=== PATIENT | male | born 1940 | race Caucasian/White ===

== ENCOUNTER 2017-12-02 11:45 | Outpatient (RCR) | payer MEDICARE, SELFPAY ==
[2017-11-25 11:23] VITALS: BP 139/75; PULSE 53; RESP 18; TEMP 36.2; BMI 41.5
--- NOTE | 2017-11-25 14:05 | RAD_ITS ---
STUDY: X-RAY RIGHT FOOT, 3RD TOE REASON FOR EXAM: Male, 77 years old. Blister 3rd toe TECHNIQUE: 3 view(s) of the toe were obtained. COMPARISON: None. FINDINGS: Osteopenia. Mild DJD of the interphalangeal joints of each digit. Moderately severe DJD of the 1st digit metatarsophalangeal joint may reflect the presence of hallux rigidus.. There is soft tissue swelling of the 3rd digit. There is no deep soft tissue gas or radiodense foreign body. There is relative osteopenia of the distal phalanx of the 3rd digit compared to the other bones of the toes and this suggests bone resorption due to osteomyelitis. RAD/Toe(s) Min 2 Views IMPRESSION: Soft tissue swelling 3rd digit with osteomyelitis of the distal phalanx. Electronically Signed: Chino Tomlinson, at 16:22 EDT Tel , Service support ,
--- NOTE | 2017-11-25 14:06 | PCM.WC.HP ---
(1) Diabetic foot ulcer Status: Chronic Current Visit: Yes Qualifiers: Diabetic foot ulcer location: toe Diabetes mellitus type: type 2 Laterality: right Non-pressure ulcer stage: with necrosis of muscle Qualified Code(s): E11.621 - Type 2 diabetes mellitus with foot ulcer; L97.513 - Non-pressure chronic ulcer of other part of right foot with necrosis of muscle Code(s): E11.621 - Type 2 diabetes mellitus with foot ulcer; L97.509 - Non-pressure chronic ulcer of other part of unspecified foot with unspecified severity (2) Diabetes mellitus Status: Chronic Current Visit: Yes Qualifiers: Diabetes mellitus type: type 2 Code(s): E11.9 - Type 2 diabetes mellitus without complications (3) Peripheral neuropathy Status: Chronic Current Visit: Yes Code(s): G62.9 - Polyneuropathy, unspecified (4) Obesity Status: Chronic Current Visit: Yes Qualifiers: Body mass index: BMI 40.0-44.9 Code(s): E66.9 - Obesity, unspecified (5) History of pulmonary embolism Status: Chronic Current Visit: No Code(s): Z86.711 - Personal history of pulmonary embolism (6) Hypertension Status: Chronic Current Visit: No Code(s): I10 - Essential (primary) hypertension (7) Hyperlipidemia Status: Chronic Current Visit: No Code(s): E78.5 - Hyperlipidemia, unspecified (8) Arthritis Status: Chronic Current Visit: No Code(s): M19.90 - Unspecified osteoarthritis, unspecified site (9) History of VT (myocardial infarction) Status: Chronic Current Visit: No Code(s): I25.2 - Old myocardial infarction (10) History of CVA (cerebrovascular accident) Status: Chronic Current Visit: No Code(s): Z86.73 - Personal history of transient ischemic attack (TIA), and cerebral infarction without residual deficits (11) Coronary artery disease involving [place] coronary artery of [place] heart Status: Chronic Current Visit: No Code(s): I25.10 - Atherosclerotic heart disease of [place] coronary artery without angina pectoris (12) PAD (peripheral artery disease) Status: Chronic Current Visit: Yes Code(s): I73.9 - Peripheral vascular disease, unspecified (13) Leg swelling Status: Chronic Current Visit: Yes Code(s): M79.89 - Other specified soft tissue disorders (14) Edema of leg Status: Chronic Current Visit: Yes Code(s): R60.0 - Localized edema (15) CKD (chronic kidney disease) stage 3, GFR 30-59 ml/min Status: Chronic Current Visit: No Code(s): N18.3 - Chronic kidney disease, stage 3 (moderate) History of Present Illness Date of Service: 11/25/17 Chief Complaint: Chronic diabetic foot ulceration of the right third toe, dorsum, Bowie grade 2 History of Wound: This is a 77-year-old obese, diabetic male who presents with a chronic ulceration on the dorsum of his right third toe. This has been present for approximately 6 months. The patient is not sure as to its etiology. The patient is known to be diabetic. He is also obese. He has multiple medical problems, documented here and elsewhere. He ambulates with a cane, and sits for long periods each day. He experiences swelling in his lower extremities bilaterally. He is currently on doxycycline orally, as prescribed by his primary care physician. He wears diabetic shoes, as fitted and dispensed by [employer] Past Medical History Past Medical History: Chronic Problems Diabetic foot ulcer (Chronic) Diabetes mellitus (Chronic) Peripheral neuropathy (Chronic) Obesity (Chronic) History of pulmonary embolism (Chronic) Hypertension (Chronic) Hyperlipidemia (Chronic) Arthritis (Chronic) History of VT (myocardial infarction) (Chronic) History of CVA (cerebrovascular accident) (Chronic) Leg swelling (Chronic) Edema of leg (Chronic) CKD (chronic kidney disease) stage 3, GFR 30-59 ml/min (Chronic) Exogenous obesity (Chronic) GERD (gastroesophageal reflux disease) (Chronic) Coronary artery disease involving [place] coronary artery of [place] heart (Chronic) Chronic kidney disease (CKD) (Chronic) Gout (Chronic) Lumbosacral stenosis (Chronic) Degeneration of lumbosacral intervertebral disc (Chronic) Lumbosacral radiculopathy (Chronic) PAD (peripheral artery disease) (Chronic) Diabetes mellitus type II, controlled (Chronic) Past Medical History: Patient has a history of diabetes mellitus, peripheral neuropathy, pulmonary embolism, peripheral arterial occlusive disease, hypertension, chronic kidney disease (stage III), coronary artery disease, hyperlipidemia, myocardial infarction, arthritis, and lower extremity swelling and edema. Surgical History: angioplasty, cholecystectomy, coronary bypass surgery, total knee arthroplasty, tonsillectomy, - - Vein stripping, rectal fistula repair, ORIF fractured leg, bilateral cataract extraction Allergies/Adverse Reactions: Allergies allopurinol Adverse Reaction (Verified 11/25/17 11:37) Other exenatide [From Byetta] Adverse Reaction (Verified 11/25/17 11:37) Other insulin aspart [From Novolog] Adverse Reaction (Verified 11/25/17 11:37) Other insulin glargine, human recombin. a [From Lantus] Adverse Reaction (Verified 11/25/17 11:37) Other morphine Adverse Reaction (Verified 11/25/17 11:37) Other DOES NOT HELP PAIN, MAKES ME FEEL OUT OF IT [id number] Reductase Inhibitor Adverse Reaction (Verified 11/25/17 11:37) Other Home Medications: Ambulatory Orders Medication Instructions Recorded Furosemide [Lasix] 80 mg PO DAILY 05/20/14 Insulin NPH/Reg 70/30 25 units SC BID 05/20/14 Metoprolol Tartrate [Lopressor 25 mg PO BID 05/20/14 (beta vania)] Timolol 0.5% [Timoptic] 1 drop EACH EYE BID 05/20/14 Tramadol HCl [Ultram ER] 50 mg PO 4X/DAY 05/20/14 Glipizide [Glucotrol Xl] 10 mg PO BID 08/02/15 Chromium Picolinate 500 mcg PO DAILY 01/15/17 Clopidogrel Bisulfate [Plavix] 75 mg PO DAILY 01/15/17 Pantoprazole Sodium [Protonix] 20 mg PO DAILY 01/15/17 Doxycycline 100 mg PO BID 11/25/17 Gabapentin [Neurontin] 300 mg PO TIDCM 11/25/17 Probenecid 500 mg PO BID 11/25/17 Sulindac [Clinoril] 200 mg PO BID 11/25/17 - Family History Paternal - - The patient's father at age of 69 with a history of coronary artery disease and diabetes mellitus. The patient's mother lived to be 95 years of age, and passed of old age. 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 Lives: Spouse/ Significant Other Smoking Status: Never smoker Tobacco Use: Non-smoker Alcohol: None Drugs: None Review of Systems Constitutional: Denies: Chills, Fever, Weight Change Eyes: Denies: Pain, Vision Change HEENT: Denies: Difficulty Hearing, Difficulty Swallowing, Sinus Congestion Cardiovascular: Denies: Chest Pain, Palpitations Respiratory: Denies: Cough, Shortness of Breath Gastrointestinal: Denies: Diarrhea, Nausea, Vomiting Genitourinary: Denies: Dysuria, Hematuria Endocrine: Denies: Heat/ Cold Intolerance, Polydipsia, Polyuria Hematologic/ Lymphatic: Denies: Easy Bruising, Easy Bleeding - Physical Exam Vital Signs Temp Pulse Resp BP 97.1 F L 53 L 18 139/75 H 11/25/17 11:23 11/25/17 11:23 11/25/17 11:23 11/25/17 11:23 General: Alert, Oriented x3, Cooperative, No apparent distress, Well developed, Well nourished HEENT: Atraumatic, PERRLA, EOMI, Normocephalic Oral: Moist Mucosa Neck: Supple, No JVD, Negative Carotid Bruits, Negative Hepatojugular Reflux, No Nodes, No Nuchal Rigidity, Trachea Midline Lungs: Clear to auscultation, Normal air movement, No rhonchi, No wheeze, No rales Cardiovascular: Regular rate, Regular Rhythm, Normal S1, Normal S2, No murmurs, No Ectopic Activity Abdomen: Soft, Non Tender, Non-Distended, Obese Extremities: No clubbing, No cyanosis, No Calf Tenderness, Edema, - - Mild bilateral lower extremity swelling and edema is noted. An ulceration is noted on the dorsum of the right third toe. Dimensions are documented elsewhere. There is moderate bioburden, and evidence of frankly nonviable and necrotic tissue. The ulceration appears to extend down to underlying bone. There is no evidence of infection or cellulitis. Skin: No rashes Wound Measurements and Assessment WC - Nurse 1 - General Ulcer Measurement Start: 11/25/17 09:46 Freq: Status: Active Protocol: Activity Type Activity Date Activity User E-Sign Co-Sign Detail Recorded Client Recorded Date Recorded By Document 11/25/17 11:23 DV [id number] 11/25/17 11:35 DV 11/25/17 11:23 Wound Center Nurse 1 [Ulcer Assessment] #2 RIGHT 3RD TOE- DORSAL ASPECT -Combined with other wound No -Current Size (cm) - Length 1.0 -Current Size (cm) - Width 1.0 -Current Size (cm) - Depth 0.2 -Total Square Cm 1.00 -Photo Taken Yes -Epithelialization None Present -Tunneling No -Undermining/Tunneling No -Circular Undermining No -Classification - Thickness Full Thickness with Exposed Support Structure -Classification - Bowie Grading ( Grade 2 Diabetic Ulcer) -Exudate Amt Small (1-33%) -Exudate Type Serous -Wound Margin Flat & Intact -Granulation Amt None Present (0 %) -Granulation Quality N/A -Slough/Fibrin Yes -Necrosis Amt Large (67-100%) -Necrotic Tissue Type Adherent Slough -Structure Exposed None/Limited to Skin Breakdown -Texture ([place]-wound Skin Appearance) Assessed Localized Edema Scarring -Moisture ([place]-wound Skin Appearance Assessed ) Maceration Weeping -Color ([place]-wound Skin Appearance) Assessed Erythema -Temperature ([place]-wound Skin No Abnormality Appearance) (Pt Warm) -Tenderness on Palpation ([place]-wound No Skin Appearance) -Ulcer Cleansing Rinsed/ Irrigated with Saline -Foul Odor after Cleansing No -Anesthetic Used 4% Lidocaine Solution [Edema Assessment] -Lower Limb Edema Present Yes -Right Calf (cm) 43.5 -Right Ankle (cm) 29.2 -Left Calf (cm) 42.0 -Left Ankle (cm) 27.4 WC - Nurse 2 - General Ulcer CM Notes Start: 11/25/17 09:46 Freq: Status: Active Protocol: Activity Type Activity Date Activity User E-Sign Co-Sign Detail Recorded Client Recorded Date Recorded By Document 11/25/17 12:55 [id number] 11/25/17 13:13 11/25/17 12:55 Wound Center Nurse 2 [Procedure/Treatment] #2 RIGHT 3RD TOE- DORSAL ASPECT -Time 12:55 -Correct Patient Yes -Correct Side, Site, Position Yes -Correct Procedure Yes -Procedure Performed Yes -Type of Procedure Debridement -Clinical Debridement Subcutaneous -Post Debridement Size (cm) - Length 1.0 -Post Debridement Size (cm) - Width 1.1 -Post Debridement Size (cm) - Depth 0.2 -Total Square Cm 1.10 -Wound/Ulcer Outcome Not Healed -Ulcer Cleansing Rinsed/ Irrigated with Saline -Foul Odor after Cleansing No -Bioengineered Tissue No -Topical Lidocaine (%) 4 -Lidocaine (ml) 5 -Bleeding Controlled with NA -Treatment Response Procedure Tolerated Well [See Physician Procedure note for Specifics] Pain Scale: 0-10 Numeric [Pain] -Is Patient Pain Free? Yes Neurological: Cranial nerves II-XII grossly intact, Neuro grossly intact Psych/Mental Status: Normal Affect, Appropriate, Alert and oriented to time, place, person, mood and affect Debridement Note Post-Debridement Measurements/Treatment WC - Nurse 2 - General Ulcer CM Notes Start: 11/25/17 09:46 Freq: Status: Active Protocol: Activity Type Activity Date Activity User E-Sign Co-Sign Detail Recorded Client Recorded Date Recorded By Document 11/25/17 12:55 [id number] 11/25/17 13:13 11/25/17 12:55 Wound Center Nurse 2 #2 RIGHT 3RD TOE- DORSAL ASPECT -Time 12:55 -Correct Patient Yes -Correct Side, Site, Position Yes -Correct Procedure Yes -Procedure Performed Yes -Type of Procedure Debridement -Clinical Debridement Subcutaneous -Post Debridement Size (cm) - Length 1.0 -Post Debridement Size (cm) - Width 1.1 -Post Debridement Size (cm) - Depth 0.2 -Total Square Cm 1.10 -Wound/Ulcer Outcome Not Healed -Ulcer Cleansing Rinsed/ Irrigated with Saline -Foul Odor after Cleansing No -Bioengineered Tissue No -Topical Lidocaine (%) 4 -Lidocaine (ml) 5 -Bleeding Controlled with NA -Treatment Response Procedure Tolerated Well Pain Scale: 0-10 Numeric Is Patient Pain Free? Yes Laterality: Right - Third toe, dorsum Type of Debridement: Excisional debridement Anesthesia Used: 4% Lidocaine Solution Depth: Down to and including healthy tissue, in the subcutaneous layer Percentage of wound debrided: 100 Instrument Used: 5mm curette Severity: Fat Layer Exposed Amount of bleeding with debridement: Mild Bleeding Controlled with: Compression and gauze Patient tolerated procedure well Assessment/Plan Active Problems Diabetic foot ulcer (Chronic) Diabetes mellitus (Chronic) Peripheral neuropathy (Chronic) Obesity (Chronic) Leg swelling (Chronic) Edema of leg (Chronic) PAD (peripheral artery disease) (Chronic) Assessment: This is a 77-year-old obese diabetic male with an ulceration on the dorsum of the right third toe. The ulceration appears to extend down to bone. Duration represents a Bowie grade 2 ulceration, and possibly a grade 3 ulceration if infection or osteomyelitis can be confirmed. The etiology of the ulceration is not definitively known, but is suspicious for pressure phenomenon, likely due to pressure from the patient's foot wear. While his shoes may be appropriately fitted, he experiences swelling late each day, and the swelling in his lower extremities and feet may have led to pressure phenomenon within his existing shoes. He is also known to have multiple other medical problems, listed above. Plan: Offloading measures are to be implemented. A lengthy discussion has been undertaken with the patient and his as to the means by which this is to be accomplished. She is to elevate his lower extremities as much as possible, to avoid swelling and edema. He is to be sure that his shoes fit properly, even at days then, when his feet may be swollen. We are to fit the patient with a surgical shoe. It is likely that we will involve podiatry, given the location of the patient's wound. Diagnostic studies will be obtained, including laboratory studies such as a CBC, comprehensive metabolic profile, serum prealbumin, and hemoglobin A1c. The patient has been advised to optimize his nutrition and glycemic control. An x-ray of the right foot will be obtained, with attention to the right third toe, in an attempt to discern the possible presence of osteomyelitis. A noninvasive lower extremity arterial study will also be obtained to assess lower extremity arterial status. We are to use collagenase Santyl topically on a daily basis. Patient will return in 1 week for reassessment. The patient is not a smoker. Influenza vaccine was not administered today. Patient weighs 250 pounds. He stands 5 feet 5 inches tall. BMI is 41.5. This places the patient in a class III category. Weight loss has been recommended, and collaboration with the patient's primary care physician has been recommended.
--- NOTE | 2017-11-25 14:16 | HP.PCM_ITS ---
(1) Diabetic foot ulcer Status: Chronic Current Visit: Yes Qualifiers: Diabetic foot ulcer location: toe Diabetes mellitus type: type 2 Laterality: right Non-pressure ulcer stage: with necrosis of muscle Qualified Code(s): E11.621 - Type 2 diabetes mellitus with foot ulcer; L97.513 - Non-pressure chronic ulcer of other part of right foot with necrosis of muscle Code(s): E11.621 - Type 2 diabetes mellitus with foot ulcer; L97.509 - Non- pressure chronic ulcer of other part of unspecified foot with unspecified severity (2) Diabetes mellitus Status: Chronic Current Visit: Yes Qualifiers: Diabetes mellitus type: type 2 Code(s): E11.9 - Type 2 diabetes mellitus without complications (3) Peripheral neuropathy Status: Chronic Current Visit: Yes Code(s): G62.9 - Polyneuropathy, unspecified (4) Obesity Status: Chronic Current Visit: Yes Qualifiers: Body mass index: BMI 40.0-44.9 Code(s): E66.9 - Obesity, unspecified (5) History of pulmonary embolism Status: Chronic Current Visit: No Code(s): Z86.711 - Personal history of pulmonary embolism (6) Hypertension Status: Chronic Current Visit: No Code(s): I10 - Essential (primary) hypertension (7) Hyperlipidemia Status: Chronic Current Visit: No Code(s): E78.5 - Hyperlipidemia, unspecified (8) Arthritis Status: Chronic Current Visit: No Code(s): M19.90 - Unspecified osteoarthritis, unspecified site (9) History of FL (myocardial infarction) Status: Chronic Current Visit: No Code(s): I25.2 - Old myocardial infarction (10) History of CVA (cerebrovascular accident) Status: Chronic Current Visit: No Code(s): Z86.73 - Personal history of transient ischemic attack (TIA), and cerebral infarction without residual deficits (11) Coronary artery disease involving iroquois coronary artery of iroquois heart Status: Chronic Current Visit: No Code(s): I25.10 - Atherosclerotic heart disease of iroquois coronary artery without angina pectoris (12) PAD (peripheral artery disease) Status: Chronic Current Visit: Yes Code(s): I73.9 - Peripheral vascular disease, unspecified (13) Leg swelling Status: Chronic Current Visit: Yes Code(s): M79.89 - Other specified soft tissue disorders (14) Edema of leg Status: Chronic Current Visit: Yes Code(s): R60.0 - Localized edema (15) CKD (chronic kidney disease) stage 3, GFR 30-59 ml/min Status: Chronic Current Visit: No Code(s): N18.3 - Chronic kidney disease, stage 3 (moderate) History of Present Illness Date of Service: 11/25/17 Chief Complaint: Chronic diabetic foot ulceration of the right third toe, dorsum , Bowie grade 2 History of Wound: This is a 77-year-old obese, diabetic male who presents with a chronic ulceration on the dorsum of his right third toe. This has been present for approximately 6 months. The patient is not sure as to its etiology. The patient is known to be diabetic. He is also obese. He has multiple medical problems, documented here and elsewhere. He ambulates with a cane, and sits for long periods each day. He experiences swelling in his lower extremities bilaterally. He is currently on doxycycline orally, as prescribed by his primary care physician. He wears diabetic shoes, as fitted and dispensed by [facility]. Past Medical History Past Medical History: Chronic Problems Diabetic foot ulcer (Chronic) Diabetes mellitus (Chronic) Peripheral neuropathy (Chronic) Obesity (Chronic) History of pulmonary embolism (Chronic) Hypertension (Chronic) Hyperlipidemia (Chronic) Arthritis (Chronic) History of FL (myocardial infarction) (Chronic) History of CVA (cerebrovascular accident) (Chronic) Leg swelling (Chronic) Edema of leg (Chronic) CKD (chronic kidney disease) stage 3, GFR 30-59 ml/min (Chronic) Exogenous obesity (Chronic) GERD (gastroesophageal reflux disease) (Chronic) Coronary artery disease involving iroquois coronary artery of iroquois heart ( Chronic) Chronic kidney disease (CKD) (Chronic) Gout (Chronic) Lumbosacral stenosis (Chronic) Degeneration of lumbosacral intervertebral disc (Chronic) Lumbosacral radiculopathy (Chronic) PAD (peripheral artery disease) (Chronic) Diabetes mellitus type II, controlled (Chronic) Past Medical History: Patient has a history of diabetes mellitus, peripheral neuropathy, pulmonary embolism, peripheral arterial occlusive disease, hypertension, chronic kidney disease (stage III), coronary artery disease, hyperlipidemia, myocardial infarction, arthritis, and lower extremity swelling and edema. Surgical History: angioplasty, cholecystectomy, coronary bypass surgery, total knee arthroplasty, tonsillectomy, - - Vein stripping, rectal fistula repair, ORIF fractured leg, bilateral cataract extraction Allergies/Adverse Reactions: Allergies allopurinol Adverse Reaction (Verified 11/25/17 11:37) Other exenatide [From Byetta] Adverse Reaction (Verified 11/25/17 11:37) Other insulin aspart [From Novolog] Adverse Reaction (Verified 11/25/17 11:37) Other insulin glargine, human recombin. a [From Lantus] Adverse Reaction (Verified 11:37) Other morphine Adverse Reaction (Verified 11/25/17 11:37) Other DOES NOT HELP PAIN, MAKES ME FEEL OUT OF IT Wycvjhg-Gjp-Aux Reductase Inhibitor Adverse Reaction (Verified 11/25/17 11:37) Other Home Medications: Ambulatory Orders Medication Instructions Recorded Furosemide [Lasix] 80 mg PO DAILY 05/20/14 Insulin NPH/Reg 70/30 25 units SC BID 05/20/14 Metoprolol Tartrate [Lopressor 25 mg PO BID 05/20/14 (beta vania)] Timolol 0.5% [Timoptic] 1 drop EACH EYE BID 05/20/14 Tramadol HCl [Ultram ER] 50 mg PO 4X/DAY 05/20/14 Glipizide [Glucotrol Xl] 10 mg PO BID 08/02/15 Chromium Picolinate 500 mcg PO DAILY 01/15/17 Clopidogrel Bisulfate [Plavix] 75 mg PO DAILY 01/15/17 Pantoprazole Sodium [Protonix] 20 mg PO DAILY 01/15/17 Doxycycline 100 mg PO BID 11/25/17 Gabapentin [Neurontin] 300 mg PO TIDCM 11/25/17 Probenecid 500 mg PO BID 11/25/17 Sulindac [Clinoril] 200 mg PO BID 11/25/17 - Family History Paternal - - The patient's father at age of 69 with a history of coronary artery disease and diabetes mellitus. The patient's mother lived to be 95 years of age , and passed of old age. 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 Lives: Spouse/ Significant Other Smoking Status: Never smoker Tobacco Use: Non-smoker Alcohol: None Drugs: None Review of Systems Constitutional: Denies: Chills, Fever, Weight Change Eyes: Denies: Pain, Vision Change HEENT: Denies: Difficulty Hearing, Difficulty Swallowing, Sinus Congestion Cardiovascular: Denies: Chest Pain, Palpitations Respiratory: Denies: Cough, Shortness of Breath Gastrointestinal: Denies: Diarrhea, Nausea, Vomiting Genitourinary: Denies: Dysuria, Hematuria Endocrine: Denies: Heat/ Cold Intolerance, Polydipsia, Polyuria Hematologic/ Lymphatic: Denies: Easy Bruising, Easy Bleeding - Physical Exam Vital Signs Temp Pulse Resp BP 97.1 F L 53 L 18 139/75 H 11/25/17 11:23 11/25/17 11:23 11/25/17 11:23 11/25/17 11:23 General: Alert, Oriented x3, Cooperative, No apparent distress, Well developed, Well nourished HEENT: Atraumatic, PERRLA, EOMI, Normocephalic Oral: Moist Mucosa Neck: Supple, No JVD, Negative Carotid Bruits, Negative Hepatojugular Reflux, No Nodes, No Nuchal Rigidity, Trachea Midline Lungs: Clear to auscultation, Normal air movement, No rhonchi, No wheeze, No rales Cardiovascular: Regular rate, Regular Rhythm, Normal S1, Normal S2, No murmurs, No Ectopic Activity Abdomen: Soft, Non Tender, Non-Distended, Obese Extremities: No clubbing, No cyanosis, No Calf Tenderness, Edema, - - Mild bilateral lower extremity swelling and edema is noted. An ulceration is noted on the dorsum of the right third toe. Dimensions are documented elsewhere. There is moderate bioburden, and evidence of frankly nonviable and necrotic tissue. The ulceration appears to extend down to underlying bone. There is no evidence of infection or cellulitis. Skin: No rashes Wound Measurements and Assessment WC - Nurse 1 - General Ulcer Measurement Start: 11/25/17 09:46 Freq: Status: Active Protocol: Activity Type Activity Date Activity User E-Sign Co-Sign Detail Recorded Client Recorded Date Recorded By Document 11/25/17 11:23 DV [id number] 11/25/17 11:35 DV 11/25/17 11:23 Wound Center Nurse 1 [Ulcer Assessment] #2 RIGHT 3RD TOE- DORSAL ASPECT -Combined with other wound No -Current Size (cm) - Length 1.0 -Current Size (cm) - Width 1.0 -Current Size (cm) - Depth 0.2 -Total Square Cm 1.00 -Photo Taken Yes -Epithelialization None Present -Tunneling No -Undermining/Tunneling No -Circular Undermining No -Classification - Thickness Full Thickness with Exposed Support Structure -Classification - Bowie Grading ( Grade 2 Diabetic Ulcer) -Exudate Amt Small (1-33%) -Exudate Type Serous -Wound Margin Flat & Intact -Granulation Amt None Present (0 %) -Granulation Quality N/A -Slough/Fibrin Yes -Necrosis Amt Large (67-100%) -Necrotic Tissue Type Adherent Slough -Structure Exposed None/Limited to Skin Breakdown -Texture ([place]-wound Skin Appearance) Assessed Localized Edema Scarring -Moisture ([place]-wound Skin Appearance Assessed ) Maceration Weeping -Color ([place]-wound Skin Appearance) Assessed Erythema -Temperature ([place]-wound Skin No Abnormality Appearance) (Pt Warm) -Tenderness on Palpation ([place]-wound No Skin Appearance) -Ulcer Cleansing Rinsed/ Irrigated with Saline -Foul Odor after Cleansing No -Anesthetic Used 4% Lidocaine Solution [Edema Assessment] -Lower Limb Edema Present Yes -Right Calf (cm) 43.5 -Right Ankle (cm) 29.2 -Left Calf (cm) 42.0 -Left Ankle (cm) 27.4 WC - Nurse 2 - General Ulcer CM Notes Start: 11/25/17 09:46 Freq: Status: Active Protocol: Activity Type Activity Date Activity User E-Sign Co-Sign Detail Recorded Client Recorded Date Recorded By Document 11/25/17 12:55 [id number] 11/25/17 13:13 11/25/17 12:55 Wound Center Nurse 2 [Procedure/Treatment] #2 RIGHT 3RD TOE- DORSAL ASPECT -Time 12:55 -Correct Patient Yes -Correct Side, Site, Position Yes -Correct Procedure Yes -Procedure Performed Yes -Type of Procedure Debridement -Clinical Debridement Subcutaneous -Post Debridement Size (cm) - Length 1.0 -Post Debridement Size (cm) - Width 1.1 -Post Debridement Size (cm) - Depth 0.2 -Total Square Cm 1.10 -Wound/Ulcer Outcome Not Healed -Ulcer Cleansing Rinsed/ Irrigated with Saline -Foul Odor after Cleansing No -Bioengineered Tissue No -Topical Lidocaine (%) 4 -Lidocaine (ml) 5 -Bleeding Controlled with NA -Treatment Response Procedure Tolerated Well [See Physician Procedure note for Specifics] Pain Scale: 0-10 Numeric [Pain] -Is Patient Pain Free? Yes Neurological: Cranial nerves II-XII grossly intact, Neuro grossly intact Psych/Mental Status: Normal Affect, Appropriate, Alert and oriented to time, place, person, mood and affect Debridement Note Post-Debridement Measurements/Treatment WC - Nurse 2 - General Ulcer CM Notes Start: 11/25/17 09:46 Freq: Status: Active Protocol: Activity Type Activity Date Activity User E-Sign Co-Sign Detail Recorded Client Recorded Date Recorded By Document 11/25/17 12:55 [id number] 11/25/17 13:13 11/25/17 12:55 Wound Center Nurse 2 #2 RIGHT 3RD TOE- DORSAL ASPECT -Time 12:55 -Correct Patient Yes -Correct Side, Site, Position Yes -Correct Procedure Yes -Procedure Performed Yes -Type of Procedure Debridement -Clinical Debridement Subcutaneous -Post Debridement Size (cm) - Length 1.0 -Post Debridement Size (cm) - Width 1.1 -Post Debridement Size (cm) - Depth 0.2 -Total Square Cm 1.10 -Wound/Ulcer Outcome Not Healed -Ulcer Cleansing Rinsed/ Irrigated with Saline -Foul Odor after Cleansing No -Bioengineered Tissue No -Topical Lidocaine (%) 4 -Lidocaine (ml) 5 -Bleeding Controlled with NA -Treatment Response Procedure Tolerated Well Pain Scale: 0-10 Numeric Is Patient Pain Free? Yes Laterality: Right - Third toe, dorsum Type of Debridement: Excisional debridement Anesthesia Used: 4% Lidocaine Solution Depth: Down to and including healthy tissue, in the subcutaneous layer Percentage of wound debrided: 100 Instrument Used: 5mm curette Severity: Fat Layer Exposed Amount of bleeding with debridement: Mild Bleeding Controlled with: Compression and gauze Patient tolerated procedure well Assessment/Plan Active Problems Diabetic foot ulcer (Chronic) Diabetes mellitus (Chronic) Peripheral neuropathy (Chronic) Obesity (Chronic) Leg swelling (Chronic) Edema of leg (Chronic) PAD (peripheral artery disease) (Chronic) Assessment: This is a 77-year-old obese diabetic male with an ulceration on the dorsum of the right third toe. The ulceration appears to extend down to bone. Duration represents a Bowie grade 2 ulceration, and possibly a grade 3 ulceration if infection or osteomyelitis can be confirmed. The etiology of the ulceration is not definitively known, but is suspicious for pressure phenomenon , likely due to pressure from the patient's foot wear. While his shoes may be appropriately fitted, he experiences swelling late each day, and the swelling in his lower extremities and feet may have led to pressure phenomenon within his existing shoes. He is also known to have multiple other medical problems, listed above. Plan: Offloading measures are to be implemented. A lengthy discussion has been undertaken with the patient and his as to the means by which this is to be accomplished. She is to elevate his lower extremities as much as possible, to avoid swelling and edema. He is to be sure that his shoes fit properly, even at days then, when his feet may be swollen. We are to fit the patient with a surgical shoe. It is likely that we will involve podiatry, given the location of the patient's wound. Diagnostic studies will be obtained, including laboratory studies such as a CBC, comprehensive metabolic profile, serum prealbumin, and hemoglobin A1c. The patient has been advised to optimize his nutrition and glycemic control. An x-ray of the right foot will be obtained, with attention to the right third toe, in an attempt to discern the possible presence of osteomyelitis. A noninvasive lower extremity arterial study will also be obtained to assess lower extremity arterial status. We are to use collagenase Santyl topically on a daily basis. Patient will return in 1 week for reassessment. The patient is not a smoker. Influenza vaccine was not administered today. Patient weighs 250 pounds. He stands 5 feet 5 inches tall. BMI is 41.5. This places the patient in a class III category. Weight loss has been recommended, and collaboration with the patient's primary care physician has been recommended.
[2017-11-25 15:34] LABS: Hematocrit 39.9 % (40-54); Hemoglobin 12.8 g/dl (13.0-16.5); Mean Corp Hgb Conc 32.1 g/gl (32-36); Mean Corpuscular Hgb 29.3 pg (27.0-32.0); Mean Corpuscular Volume 91.3 fL (80-94); Mean Platelet Vol. 9.9 fl (6.2-12.0); Platelet Count 275 K/mm3 (150-450); RBC Distribution Width CV 13.3 % (11.6-14.6); RBC Distribution Width SD 44.1 fl (35.1-43.9); Red Blood Count 4.37 M/mm3 (4.6-6.2); White Blood Count 7.1 K/mm3 (4.4-11.0)
[2017-11-25 15:38] LABS: Scan Indicated on CBC? Y/N NO
[2017-11-25 16:10] LABS: ALB/GLOB Ratio 0.7 RATIO (0.9-2.4); AST(SGOT) 20 U/L (15-37); Alanine Aminotransfer ALT/SGPT 23 U/L (16-61); Albumin, Serum 3.1 g/dL (3.2-5.0); Alkaline Phosphatase 182 U/L (45-117); Anion Gap 7 (5-15); BUN 31 mg/dL (7-18); BUN/Creat Ratio 19.9 RATIO (10-20); Calcium,Total 8.3 mg/dL (8.5-10.1); Chloride 105 mmol/L (98-107); Creatinine, Serum 1.56 mg/dL (0.70-1.30); EST Glomerular Filtration Rate 46 mL/min (>60); Est Glom Filt Rate - Afr Amer 56 mL/min (>60); Estimated Creatinine Clearance 33.95 ml/min; Globulin 4.3 g/dL (2.2-4.2); Glucose 114 mg/dL (74-106); Potassium 4.2 mmol/L (3.5-5.1); Prealbumin 23.3 mg/dL (20.0-40.0); Protein, Total 7.4 g/dL (6.4-8.2); Sodium Level 140 mmol/L (136-145)
[2017-11-25 16:46] LABS: Hemoglobin A1c 7.4 % (4.2-6.3)
[2017-12-02 11:38] VITALS: BP 134/77; PULSE 66; RESP 18; TEMP 35; BMI 41.5
--- NOTE | 2017-12-02 12:10 | PCM.WC.HP ---
(1) Diabetic foot ulcer Status: Chronic Current Visit: Yes Qualifiers: Diabetic foot ulcer location: toe Diabetes mellitus type: type 2 Laterality: right Non-pressure ulcer stage: with necrosis of muscle Qualified Code(s): E11.621 - Type 2 diabetes mellitus with foot ulcer; L97.513 - Non-pressure chronic ulcer of other part of right foot with necrosis of muscle Code(s): E11.621 - Type 2 diabetes mellitus with foot ulcer; L97.509 - Non-pressure chronic ulcer of other part of unspecified foot with unspecified severity (2) Diabetes mellitus Status: Chronic Current Visit: Yes Qualifiers: Diabetes mellitus type: type 2 Code(s): E11.9 - Type 2 diabetes mellitus without complications (3) Peripheral neuropathy Status: Chronic Current Visit: Yes Code(s): G62.9 - Polyneuropathy, unspecified (4) Obesity Status: Chronic Current Visit: Yes Qualifiers: Body mass index: BMI 40.0-44.9 Code(s): E66.9 - Obesity, unspecified (5) History of pulmonary embolism Status: Chronic Current Visit: No Code(s): Z86.711 - Personal history of pulmonary embolism (6) Hypertension Status: Chronic Current Visit: No Code(s): I10 - Essential (primary) hypertension (7) Hyperlipidemia Status: Chronic Current Visit: No Code(s): E78.5 - Hyperlipidemia, unspecified (8) Arthritis Status: Chronic Current Visit: No Code(s): M19.90 - Unspecified osteoarthritis, unspecified site (9) History of DC (myocardial infarction) Status: Chronic Current Visit: No Code(s): I25.2 - Old myocardial infarction (10) History of CVA (cerebrovascular accident) Status: Chronic Current Visit: No Code(s): Z86.73 - Personal history of transient ischemic attack (TIA), and cerebral infarction without residual deficits (11) Coronary artery disease involving [place] coronary artery of [place] heart Status: Chronic Current Visit: No Code(s): I25.10 - Atherosclerotic heart disease of [place] coronary artery without angina pectoris (12) PAD (peripheral artery disease) Status: Chronic Current Visit: Yes Code(s): I73.9 - Peripheral vascular disease, unspecified (13) Leg swelling Status: Chronic Current Visit: Yes Code(s): M79.89 - Other specified soft tissue disorders (14) Edema of leg Status: Chronic Current Visit: Yes Code(s): R60.0 - Localized edema (15) CKD (chronic kidney disease) stage 3, GFR 30-59 ml/min Status: Chronic Current Visit: No Code(s): N18.3 - Chronic kidney disease, stage 3 (moderate) (16) Osteomyelitis of toe of right foot Status: Chronic Current Visit: Yes Code(s): M86.9 - Osteomyelitis, unspecified History of Present Illness Date of Service: 12/02/17 Chief Complaint: 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 This has been present for approximately 6 months. The patient is not sure as to its etiology. The patient is known to be diabetic. He is also obese. He has multiple medical problems, documented here and elsewhere. He ambulates with a cane, and sits for long periods each day. He experiences swelling in his lower extremities bilaterally. He was on doxycycline orally at the time of his initial intake, as prescribed by his primary care physician. He wears diabetic shoes, as fitted and dispensed by [employer]. The fitting of his diabetic shoes was performed several years ago. Finally, the patient is noted to have a superficial eschar on the tip of his right great toe, which he claims to whack at periodically using a sharp instrument. Past Medical History Past Medical History: Chronic Problems Diabetic foot ulcer (Chronic) Diabetes mellitus (Chronic) Peripheral neuropathy (Chronic) Obesity (Chronic) History of pulmonary embolism (Chronic) Hypertension (Chronic) Hyperlipidemia (Chronic) Arthritis (Chronic) History of DC (myocardial infarction) (Chronic) History of CVA (cerebrovascular accident) (Chronic) Leg swelling (Chronic) Edema of leg (Chronic) CKD (chronic kidney disease) stage 3, GFR 30-59 ml/min (Chronic) Osteomyelitis of toe of right foot (Chronic) Exogenous obesity (Chronic) GERD (gastroesophageal reflux disease) (Chronic) Coronary artery disease involving [place] coronary artery of [place] heart (Chronic) Chronic kidney disease (CKD) (Chronic) Gout (Chronic) Lumbosacral stenosis (Chronic) Degeneration of lumbosacral intervertebral disc (Chronic) Lumbosacral radiculopathy (Chronic) PAD (peripheral artery disease) (Chronic) Diabetes mellitus type II, controlled (Chronic) Surgical History: angioplasty, cholecystectomy, coronary bypass surgery, total knee arthroplasty, tonsillectomy, - - Vein stripping, rectal fistula repair, ORIF fractured leg, bilateral cataract extraction Allergies/Adverse Reactions: Allergies allopurinol Adverse Reaction (Verified 11/25/17 11:37) Other exenatide [From Byetta] Adverse Reaction (Verified 11/25/17 11:37) Other insulin aspart [From Novolog] Adverse Reaction (Verified 11/25/17 11:37) Other insulin glargine, human recombin. a [From Lantus] Adverse Reaction (Verified 11/25/17 11:37) Other morphine Adverse Reaction (Verified 11/25/17 11:37) Other DOES NOT HELP PAIN, MAKES ME FEEL OUT OF IT Tdybhzc-[id number]-[id number] Reductase Inhibitor Adverse Reaction (Verified 11/25/17 11:37) Other Home Medications: Ambulatory Orders Medication Instructions Recorded Furosemide [Lasix] 80 mg PO DAILY 05/20/14 Insulin NPH/Reg 70/30 25 units SC BID 05/20/14 Metoprolol Tartrate [Lopressor 25 mg PO BID 05/20/14 (beta vania)] Timolol 0.5% [Timoptic] 1 drop EACH EYE BID 05/20/14 Tramadol HCl [Ultram ER] 50 mg PO 4X/DAY 05/20/14 Glipizide [Glucotrol Xl] 10 mg PO BID 08/02/15 Chromium Picolinate 500 mcg PO DAILY 01/15/17 Clopidogrel Bisulfate [Plavix] 75 mg PO DAILY 01/15/17 Pantoprazole Sodium [Protonix] 20 mg PO DAILY 01/15/17 Doxycycline 100 mg PO BID 11/25/17 Gabapentin [Neurontin] 300 mg PO TIDCM 11/25/17 Probenecid 500 mg PO BID 11/25/17 Sulindac [Clinoril] 200 mg PO BID 11/25/17 - Family History Paternal - - The patient's father at age of 69 with a history of coronary artery disease and diabetes mellitus. The patient's mother lived to be 95 years of age, and passed of old age. Lives: Spouse/ Significant Other Smoking Status: Never smoker Tobacco Use: Non-smoker Alcohol: None Drugs: None Review of Systems Constitutional: Denies: Chills, Fever, Weight Change Eyes: Denies: Pain, Vision Change HEENT: Denies: Difficulty Hearing, Difficulty Swallowing, Sinus Congestion Cardiovascular: Denies: Chest Pain, Palpitations Respiratory: Denies: Cough, Shortness of Breath Gastrointestinal: Denies: Diarrhea, Nausea, Vomiting Genitourinary: Denies: Dysuria, Hematuria Endocrine: Denies: Heat/ Cold Intolerance, Polydipsia, Polyuria Hematologic/ Lymphatic: Denies: Easy Bruising, Easy Bleeding - Physical Exam Vital Signs Temp Pulse Resp BP 95 F L 66 18 134/77 H 12/02/17 11:38 12/02/17 11:38 12/02/17 11:38 12/02/17 11:38 General: Alert, Oriented x3, Cooperative, No apparent distress, Well developed, Well nourished, - - Patient is obese. HEENT: Atraumatic, PERRLA, EOMI, Normocephalic Oral: Moist Mucosa Neck: No JVD Lungs: Normal air movement Abdomen: Non-Distended, Obese Extremities: No clubbing, No cyanosis, No Calf Tenderness, - - Moderate swelling and edema is noted in the lower extremities bilaterally. An open ulceration is noted on the dorsum of the right third toe. It appears to extend down to bone. Dimensions are documented elsewhere. There is a moderate amount of nonviable, necrotic tissue and bioburden. Wound Measurements and Assessment WC - Nurse 1 - General Ulcer Measurement Start: 11/25/17 09:46 Freq: Status: Active Protocol: Activity Type Activity Date Activity User E-Sign Co-Sign Detail Recorded Client Recorded Date Recorded By Document 12/02/17 11:38 [id number] 12/02/17 11:46 DL 12/02/17 11:38 Wound Center Nurse 1 [Ulcer Assessment] #2 RIGHT 3RD TOE- DORSAL ASPECT -Current Size (cm) - Length 0.7 -Current Size (cm) - Width 1.2 -Current Size (cm) - Depth 0.3 -Total Square Cm 0.84 -Photo Taken No -Exudate Amt Small (1-33%) -Exudate Type Serosanguineous -Wound Margin Distinct, Outline Attached -Granulation Amt Small (1-33%) -Granulation Quality Sena -Necrosis Amt Large (67-100%) -Necrotic Tissue Type Adherent Slough -Structure Exposed Bone -Texture ([place]-wound Skin Appearance) Localized Edema -Moisture ([place]-wound Skin Appearance Maceration ) -Color ([place]-wound Skin Appearance) Erythema -Temperature ([place]-wound Skin No Abnormality Appearance) (Pt Warm) -Ulcer Cleansing Wound Cleanser -Foul Odor after Cleansing No -Anesthetic Used 4% Lidocaine Solution - Nurse 2 - General Ulcer CM Notes Start: 11/25/17 09:46 Freq: Status: Active Protocol: Activity Type Activity Date Activity User E-Sign Co-Sign Detail Recorded Client Recorded Date Recorded By Document 12/02/17 11:57 DL [id number] 12/02/17 12:01 DL 12/02/17 11:57 Wound Center Nurse 2 [Procedure/Treatment] -Time 11:57 -Correct Patient Yes -Correct Side, Site, Position Yes -Correct Procedure Yes -Procedure Performed Yes -Type of Procedure Debridement -Clinical Debridement Subcutaneous -Post Debridement Size (cm) - Length 0.9 -Post Debridement Size (cm) - Width 1.1 -Post Debridement Size (cm) - Depth 0.2 -Total Square Cm 0.99 -Wound/Ulcer Outcome Not Healed -Ulcer Cleansing Rinsed/ Irrigated with Saline -Foul Odor after Cleansing No -Bioengineered Tissue No -Topical Lidocaine (%) 4 -Lidocaine (ml) 5 -Bleeding Controlled with NA -Treatment Response Procedure Tolerated Well [See Physician Procedure note for Specifics] Pain Scale: 0-10 Numeric [Pain] -Is Patient Pain Free? Yes Neurological: Cranial nerves II-XII grossly intact, Neuro grossly intact Psych/Mental Status: Normal Affect, Appropriate, Alert and oriented to time, place, person, mood and affect Debridement Note Post-Debridement Measurements/Treatment - Nurse 2 - General Ulcer CM Notes Start: 11/25/17 09:46 Freq: Status: Active Protocol: Activity Type Activity Date Activity User E-Sign Co-Sign Detail Recorded Client Recorded Date Recorded By Document 11/25/17 12:55 JS [id number] 11/25/17 13:13 JS Document 12/02/17 11:57 DL [id number] 12/02/17 12:01 DL 11/25/17 12/02/17 12:55 11:57 Wound Center Nurse 2 #2 RIGHT 3RD TOE- DORSAL ASPECT -Time 12:55 11:57 -Correct Patient Yes Yes -Correct Side, Site, Position Yes Yes -Correct Procedure Yes Yes -Procedure Performed Yes Yes -Type of Procedure Debridement Debridement -Clinical Debridement Subcutaneous Subcutaneous -Post Debridement Size (cm) - Length 1.0 0.9 -Post Debridement Size (cm) - Width 1.1 1.1 -Post Debridement Size (cm) - Depth 0.2 0.2 -Total Square Cm 1.10 0.99 -Wound/Ulcer Outcome Not Healed Not Healed -Ulcer Cleansing Rinsed/ Rinsed/ Irrigated with Irrigated with Saline Saline -Foul Odor after Cleansing No No -Bioengineered Tissue No No -Topical Lidocaine (%) 4 4 -Lidocaine (ml) 5 5 -Bleeding Controlled with NA NA -Treatment Response Procedure Procedure Tolerated Well Tolerated Well Pain Scale: 0-10 Numeric Is Patient Pain Free? Yes Yes Laterality: Right - Third toe Type of Debridement: Excisional debridement Anesthesia Used: 4% Lidocaine Solution Depth: Down to and including healthy tissue, in the subcutaneous layer Percentage of wound debrided: 100 Instrument Used: 5mm curette Severity: Necrosis of Bone - Debridement extends down to bone Amount of bleeding with debridement: Mild Bleeding Controlled with: Compression and gauze Patient tolerated procedure well Assessment/Plan Clinical Impression(s) from Imaging Studies Toe X-Ray 11/25/17 14:05 IMPRESSION: Soft tissue swelling 3rd digit with osteomyelitis of the distal phalanx. Electronically Signed: Chino Tomlinson, at 16:22 EDT Tel , Service support , Active Problems Diabetic foot ulcer (Chronic) Diabetes mellitus (Chronic) Peripheral neuropathy (Chronic) Obesity (Chronic) Leg swelling (Chronic) Edema of leg (Chronic) Osteomyelitis of toe of right foot (Chronic) PAD (peripheral artery disease) (Chronic) Assessment: This is a 77-year-old obese diabetic male with an ulceration on the dorsum of the right third toe. The ulceration appears to extend down to bone. An x-ray performed on November 25, 2017, confirms the presence of osteomyelitis of the distal third phalanx. This represents a Bowie grade 3 ulceration. The etiology of the ulceration is not definitively known, but is suspicious for pressure phenomenon, likely due to pressure from the patient's foot wear. While his shoes may be appropriately fitted, he experiences swelling late each day, and the swelling in his lower extremities and feet may have led to pressure phenomenon within his existing diabetic shoes. He has been advised to implement measures to minimize the swelling and edema in the lower extremities, and to be reevaluated as to the appropriateness of his current offloading diabetic shoes. Recent laboratory studies, dated 11/25/2017, have been reviewed, and are as follows: Glucose 114, BUN 31, creatinine 1.56, protein 7.4, albumin 3.1, calcium 8.3, sodium 140, potassium 4.2, chloride 105, serum prealbumin 23.3, hemoglobin A1c 7.4, white blood count 7.1, hemoglobin 12.8, hematocrit 39.9, platelets 275,000. Plan: Offloading measures are to be implemented. A lengthy discussion has been undertaken with the patient and his as to the means by which this is to be accomplished. He is to elevate his lower extremities as much as possible, to avoid swelling and edema. He is to be sure that his shoes fit properly, even at days end, when his feet may be swollen. The patient has been advised to seek reevaluation as to the appropriateness of the fit of his current diabetic shoes. We have fitted the patient with a surgical shoe in the interim. Given that the patient's x-ray confirms the suspicion of osteomyelitis, we are to seek evaluation by the podiatry service. Additionally, he may be a candidate for hyperbaric oxygen therapy in the near future. The patient has been advised to optimize his nutrition. He has also been advised to optimize his glycemic control. The patient has yet to undergo a noninvasive lower extremity arterial study. 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 We are to request a copy of a noninvasive lower extremity arterial study done in August 2017 at [facility]. If unable to obtain this study, it will need to be repeated. We are to continue the use of collagenase Santyl topically on a daily basis. Patient will return in 1 week for reassessment. We are to seek consultation by the podiatry service. Finally, as a diabetic, the patient has been advised to seek regular appointments with a installation & maintenance executive in terms of foot care, trimming of toenails, etc. The patient is not a smoker. Influenza vaccine was not administered today. Patient weighs 250 pounds. He stands 5 feet 5 inches tall. BMI is 41.5. This places the patient in a class III category. Weight loss has been recommended, and collaboration with the patient's primary care physician has been recommended.
--- NOTE | 2017-12-02 12:26 | HP.PCM_ITS ---
(1) Diabetic foot ulcer Status: Chronic Current Visit: Yes Qualifiers: Diabetic foot ulcer location: toe Diabetes mellitus type: type 2 Laterality: right Non-pressure ulcer stage: with necrosis of muscle Qualified Code(s): E11.621 - Type 2 diabetes mellitus with foot ulcer; L97.513 - Non-pressure chronic ulcer of other part of right foot with necrosis of muscle Code(s): E11.621 - Type 2 diabetes mellitus with foot ulcer; L97.509 - Non- pressure chronic ulcer of other part of unspecified foot with unspecified severity (2) Diabetes mellitus Status: Chronic Current Visit: Yes Qualifiers: Diabetes mellitus type: type 2 Code(s): E11.9 - Type 2 diabetes mellitus without complications (3) Peripheral neuropathy Status: Chronic Current Visit: Yes Code(s): G62.9 - Polyneuropathy, unspecified (4) Obesity Status: Chronic Current Visit: Yes Qualifiers: Body mass index: BMI 40.0-44.9 Code(s): E66.9 - Obesity, unspecified (5) History of pulmonary embolism Status: Chronic Current Visit: No Code(s): Z86.711 - Personal history of pulmonary embolism (6) Hypertension Status: Chronic Current Visit: No Code(s): I10 - Essential (primary) hypertension (7) Hyperlipidemia Status: Chronic Current Visit: No Code(s): E78.5 - Hyperlipidemia, unspecified (8) Arthritis Status: Chronic Current Visit: No Code(s): M19.90 - Unspecified osteoarthritis, unspecified site (9) History of AR (myocardial infarction) Status: Chronic Current Visit: No Code(s): I25.2 - Old myocardial infarction (10) History of CVA (cerebrovascular accident) Status: Chronic Current Visit: No Code(s): Z86.73 - Personal history of transient ischemic attack (TIA), and cerebral infarction without residual deficits (11) 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 Status: Chronic Current Visit: No Code(s): I25.10 - Atherosclerotic heart disease of tribal coronary artery without angina pectoris (12) PAD (peripheral artery disease) Status: Chronic Current Visit: Yes Code(s): I73.9 - Peripheral vascular disease, unspecified (13) Leg swelling Status: Chronic Current Visit: Yes Code(s): M79.89 - Other specified soft tissue disorders (14) Edema of leg Status: Chronic Current Visit: Yes Code(s): R60.0 - Localized edema (15) CKD (chronic kidney disease) stage 3, GFR 30-59 ml/min Status: Chronic Current Visit: No Code(s): N18.3 - Chronic kidney disease, stage 3 (moderate) (16) Osteomyelitis of toe of right foot Status: Chronic Current Visit: Yes Code(s): M86.9 - Osteomyelitis, unspecified History of Present Illness Date of Service: 12/02/17 Chief Complaint: Chronic diabetic foot ulceration of the right third toe, dorsum , with osteomyelitis, Bowie grade 3 History of Wound: This is a 77-year-old obese, diabetic male who presents with a chronic ulceration on the dorsum of his right third toe. This has been present for approximately 6 months. The patient is not sure as to its etiology. The patient is known to be diabetic. He is also obese. He has multiple medical problems, documented here and elsewhere. He ambulates with a cane, and sits for long periods each day. He experiences swelling in his lower extremities bilaterally. He was on doxycycline orally at the time of his initial intake, as prescribed by his primary care physician. He wears diabetic shoes, as fitted and dispensed by [employer]. The fitting of his diabetic shoes was performed several years ago. Finally, the patient is noted to have a superficial eschar on the tip of his right great toe, which he claims to whack at periodically using a sharp instrument. Past Medical History Past Medical History: Chronic Problems Diabetic foot ulcer (Chronic) Diabetes mellitus (Chronic) Peripheral neuropathy (Chronic) Obesity (Chronic) History of pulmonary embolism (Chronic) Hypertension (Chronic) Hyperlipidemia (Chronic) Arthritis (Chronic) History of AR (myocardial infarction) (Chronic) History of CVA (cerebrovascular accident) (Chronic) Leg swelling (Chronic) Edema of leg (Chronic) CKD (chronic kidney disease) stage 3, GFR 30-59 ml/min (Chronic) Osteomyelitis of toe of right foot (Chronic) Exogenous obesity (Chronic) GERD (gastroesophageal reflux disease) (Chronic) 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 ( Chronic) Chronic kidney disease (CKD) (Chronic) Gout (Chronic) Lumbosacral stenosis (Chronic) Degeneration of lumbosacral intervertebral disc (Chronic) Lumbosacral radiculopathy (Chronic) PAD (peripheral artery disease) (Chronic) Diabetes mellitus type II, controlled (Chronic) Surgical History: angioplasty, cholecystectomy, coronary bypass surgery, total knee arthroplasty, tonsillectomy, - - Vein stripping, rectal fistula repair, ORIF fractured leg, bilateral cataract extraction Allergies/Adverse Reactions: Allergies allopurinol Adverse Reaction (Verified 11/25/17 11:37) Other exenatide [From Byetta] Adverse Reaction (Verified 11/25/17 11:37) Other insulin aspart [From Novolog] Adverse Reaction (Verified 11/25/17 11:37) Other insulin glargine, human recombin. a [From Lantus] Adverse Reaction (Verified 11:37) Other morphine Adverse Reaction (Verified 11/25/17 11:37) Other DOES NOT HELP PAIN, MAKES ME FEEL OUT OF IT Caxvwqt-Jjh-Los Reductase Inhibitor Adverse Reaction (Verified 11/25/17 11:37) Other Home Medications: Ambulatory Orders Medication Instructions Recorded Furosemide [Lasix] 80 mg PO DAILY 05/20/14 Insulin NPH/Reg 70/30 25 units SC BID 05/20/14 Metoprolol Tartrate [Lopressor 25 mg PO BID 05/20/14 (beta vania)] Timolol 0.5% [Timoptic] 1 drop EACH EYE BID 05/20/14 Tramadol HCl [Ultram ER] 50 mg PO 4X/DAY 05/20/14 Glipizide [Glucotrol Xl] 10 mg PO BID 08/02/15 Chromium Picolinate 500 mcg PO DAILY 01/15/17 Clopidogrel Bisulfate [Plavix] 75 mg PO DAILY 01/15/17 Pantoprazole Sodium [Protonix] 20 mg PO DAILY 01/15/17 Doxycycline 100 mg PO BID 11/25/17 Gabapentin [Neurontin] 300 mg PO TIDCM 11/25/17 Probenecid 500 mg PO BID 11/25/17 Sulindac [Clinoril] 200 mg PO BID 11/25/17 - Family History Paternal - - The patient's father at age of 69 with a history of coronary artery disease and diabetes mellitus. The patient's mother lived to be 95 years of age , and passed of old age. Lives: Spouse/ Significant Other Smoking Status: Never smoker Tobacco Use: Non-smoker Alcohol: None Drugs: None Review of Systems Constitutional: Denies: Chills, Fever, Weight Change Eyes: Denies: Pain, Vision Change HEENT: Denies: Difficulty Hearing, Difficulty Swallowing, Sinus Congestion Cardiovascular: Denies: Chest Pain, Palpitations Respiratory: Denies: Cough, Shortness of Breath Gastrointestinal: Denies: Diarrhea, Nausea, Vomiting Genitourinary: Denies: Dysuria, Hematuria Endocrine: Denies: Heat/ Cold Intolerance, Polydipsia, Polyuria Hematologic/ Lymphatic: Denies: Easy Bruising, Easy Bleeding - Physical Exam Vital Signs Temp Pulse Resp BP 95 F L 66 18 134/77 H 12/02/17 11:38 12/02/17 11:38 12/02/17 11:38 12/02/17 11:38 General: Alert, Oriented x3, Cooperative, No apparent distress, Well developed, Well nourished, - - Patient is obese. HEENT: Atraumatic, PERRLA, EOMI, Normocephalic Oral: Moist Mucosa Neck: No JVD Lungs: Normal air movement Abdomen: Non-Distended, Obese Extremities: No clubbing, No cyanosis, No Calf Tenderness, - - Moderate swelling and edema is noted in the lower extremities bilaterally. An open ulceration is noted on the dorsum of the right third toe. It appears to extend down to bone. Dimensions are documented elsewhere. There is a moderate amount of nonviable, necrotic tissue and bioburden. Wound Measurements and Assessment WC - Nurse 1 - General Ulcer Measurement Start: 11/25/17 09:46 Freq: Status: Active Protocol: Activity Type Activity Date Activity User E-Sign Co-Sign Detail Recorded Client Recorded Date Recorded By Document 12/02/17 11:38 [id number] 12/02/17 11:46 DL 12/02/17 11:38 Wound Center Nurse 1 [Ulcer Assessment] #2 RIGHT 3RD TOE- DORSAL ASPECT -Current Size (cm) - Length 0.7 -Current Size (cm) - Width 1.2 -Current Size (cm) - Depth 0.3 -Total Square Cm 0.84 -Photo Taken No -Exudate Amt Small (1-33%) -Exudate Type Serosanguineous -Wound Margin Distinct, Outline Attached -Granulation Amt Small (1-33%) -Granulation Quality [place] -Necrosis Amt Large (67-100%) -Necrotic Tissue Type Adherent Slough -Structure Exposed Bone -Texture ([place]-wound Skin Appearance) Localized Edema -Moisture ([place]-wound Skin Appearance Maceration ) -Color ([place]-wound Skin Appearance) Erythema -Temperature ([place]-wound Skin No Abnormality Appearance) (Pt Warm) -Ulcer Cleansing Wound Cleanser -Foul Odor after Cleansing No -Anesthetic Used 4% Lidocaine Solution - Nurse 2 - General Ulcer CM Notes Start: 11/25/17 09:46 Freq: Status: Active Protocol: Activity Type Activity Date Activity User E-Sign Co-Sign Detail Recorded Client Recorded Date Recorded By Document 12/02/17 11:57 DL [id number] 12/02/17 12:01 DL 12/02/17 11:57 Wound Center Nurse 2 [Procedure/Treatment] -Time 11:57 -Correct Patient Yes -Correct Side, Site, Position Yes -Correct Procedure Yes -Procedure Performed Yes -Type of Procedure Debridement -Clinical Debridement Subcutaneous -Post Debridement Size (cm) - Length 0.9 -Post Debridement Size (cm) - Width 1.1 -Post Debridement Size (cm) - Depth 0.2 -Total Square Cm 0.99 -Wound/Ulcer Outcome Not Healed -Ulcer Cleansing Rinsed/ Irrigated with Saline -Foul Odor after Cleansing No -Bioengineered Tissue No -Topical Lidocaine (%) 4 -Lidocaine (ml) 5 -Bleeding Controlled with NA -Treatment Response Procedure Tolerated Well [See Physician Procedure note for Specifics] Pain Scale: 0-10 Numeric [Pain] -Is Patient Pain Free? Yes Neurological: Cranial nerves II-XII grossly intact, Neuro grossly intact Psych/Mental Status: Normal Affect, Appropriate, Alert and oriented to time, place, person, mood and affect Debridement Note Post-Debridement Measurements/Treatment - Nurse 2 - General Ulcer CM Notes Start: 11/25/17 09:46 Freq: Status: Active Protocol: Activity Type Activity Date Activity User E-Sign Co-Sign Detail Recorded Client Recorded Date Recorded By Document 11/25/17 12:55 JS [id number] 11/25/17 13:13 JS Document 12/02/17 11:57 DL [id number] 12/02/17 12:01 DL 11/25/17 12/02/17 12:55 11:57 Wound Center Nurse 2 #2 RIGHT 3RD TOE- DORSAL ASPECT -Time 12:55 11:57 -Correct Patient Yes Yes -Correct Side, Site, Position Yes Yes -Correct Procedure Yes Yes -Procedure Performed Yes Yes -Type of Procedure Debridement Debridement -Clinical Debridement Subcutaneous Subcutaneous -Post Debridement Size (cm) - Length 1.0 0.9 -Post Debridement Size (cm) - Width 1.1 1.1 -Post Debridement Size (cm) - Depth 0.2 0.2 -Total Square Cm 1.10 0.99 -Wound/Ulcer Outcome Not Healed Not Healed -Ulcer Cleansing Rinsed/ Rinsed/ Irrigated with Irrigated with Saline Saline -Foul Odor after Cleansing No No -Bioengineered Tissue No No -Topical Lidocaine (%) 4 4 -Lidocaine (ml) 5 5 -Bleeding Controlled with NA NA -Treatment Response Procedure Procedure Tolerated Well Tolerated Well Pain Scale: 0-10 Numeric Is Patient Pain Free? Yes Yes Laterality: Right - Third toe Type of Debridement: Excisional debridement Anesthesia Used: 4% Lidocaine Solution Depth: Down to and including healthy tissue, in the subcutaneous layer Percentage of wound debrided: 100 Instrument Used: 5mm curette Severity: Necrosis of Bone - Debridement extends down to bone Amount of bleeding with debridement: Mild Bleeding Controlled with: Compression and gauze Patient tolerated procedure well Assessment/Plan Clinical Impression(s) from Imaging Studies Toe X-Ray 11/25/17 14:05 IMPRESSION: Soft tissue swelling 3rd digit with osteomyelitis of the distal phalanx. Electronically Signed: Chino Tomlinson, at 16:22 EDT Tel , Service support , Active Problems Diabetic foot ulcer (Chronic) Diabetes mellitus (Chronic) Peripheral neuropathy (Chronic) Obesity (Chronic) Leg swelling (Chronic) Edema of leg (Chronic) Osteomyelitis of toe of right foot (Chronic) PAD (peripheral artery disease) (Chronic) Assessment: This is a 77-year-old obese diabetic male with an ulceration on the dorsum of the right third toe. The ulceration appears to extend down to bone. An x-ray performed on November 25, 2017, confirms the presence of osteomyelitis of the distal third phalanx. This represents a Bowie grade 3 ulceration. The etiology of the ulceration is not definitively known, but is suspicious for pressure phenomenon, likely due to pressure from the patient's foot wear. While his shoes may be appropriately fitted, he experiences swelling late each day, and the swelling in his lower extremities and feet may have led to pressure phenomenon within his existing diabetic shoes. He has been advised to implement measures to minimize the swelling and edema in the lower extremities, and to be reevaluated as to the appropriateness of his current offloading diabetic shoes. Recent laboratory studies, dated 11/25/2017, have been reviewed , and are as follows: Glucose 114, BUN 31, creatinine 1.56, protein 7.4, albumin 3.1, calcium 8.3, sodium 140, potassium 4.2, chloride 105, serum prealbumin 23.3, hemoglobin A1c 7.4, white blood count 7.1, hemoglobin 12.8, hematocrit 39.9, platelets 275,000. Plan: Offloading measures are to be implemented. A lengthy discussion has been undertaken with the patient and his as to the means by which this is to be accomplished. He is to elevate his lower extremities as much as possible, to avoid swelling and edema. He is to be sure that his shoes fit properly, even at days end, when his feet may be swollen. The patient has been advised to seek reevaluation as to the appropriateness of the fit of his current diabetic shoes. We have fitted the patient with a surgical shoe in the interim. Given that the patient's x-ray confirms the suspicion of osteomyelitis, we are to seek evaluation by the podiatry service. Additionally, he may be a candidate for hyperbaric oxygen therapy in the near future. The patient has been advised to optimize his nutrition. He has also been advised to optimize his glycemic control. The patient has yet to undergo a noninvasive lower extremity arterial study. 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 We are to request a copy of a noninvasive lower extremity arterial study done in August 2017 at [facility]. If unable to obtain this study, it will need to be repeated. We are to continue the use of collagenase Santyl topically on a daily basis. Patient will return in 1 week for reassessment. We are to seek consultation by the podiatry service. Finally, as a diabetic, the patient has been advised to seek regular appointments with a instrument specialist in terms of foot care, trimming of toenails, etc. The patient is not a smoker. Influenza vaccine was not administered today. Patient weighs 250 pounds. He stands 5 feet 5 inches tall. BMI is 41.5. This places the patient in a class III category. Weight loss has been recommended, and collaboration with the patient's primary care physician has been recommended.
== END 2017-12-04 23:59 ==
LOC: WC 11:45
PROVIDERS: Family Provider Family Medicine; PCP Family Medicine; Visit Provider Surgery
DX: E11.621 Type 2 diabetes mellitus with foot ulcer (principal); E11.51 Type 2 diabetes mellitus with diabetic peripheral angiopathy without gangrene; E66.9 Obesity, unspecified; Z68.41 Body mass index [BMI] 40.0-44.9, adult; Z71.3 Dietary counseling and surveillance; Z86.711 Personal history of pulmonary embolism; E78.5 Hyperlipidemia, unspecified; M19.90 Unspecified osteoarthritis, unspecified site; E11.22 Type 2 diabetes mellitus with diabetic chronic kidney disease; I12.9 Hypertensive chronic kidney disease with stage 1 through stage 4 chronic kidney disease, or unspecified chronic kidney disease; N18.3 Chronic kidney disease, stage 3 (moderate); Z79.899 Other long term (current) drug therapy; Z79.02 Long term (current) use of antithrombotics/antiplatelets
CPT/HCPCS: 11042; 36415; 73660; 80053; 83036; 84134; 85027; 99212; G0463

== ENCOUNTER → 2017-12-10 12:32 | Outpatient (CLI) | payer MEDICARE, SELFPAY ==
--- NOTE | 2017-12-10 12:32 | DT_ITS ---
This patient was seen during an EMR downtime December 08, 2017 - December 15, 2017. This patient may have a combination of paper and electronic documentation or all paper documentation. All documentation is viewable within the e-chart portion of [email or web address] for each patient visit.
[2017-12-15 14:41] LABS: Hematocrit 43.1 % (40-54); Hemoglobin 13.9 g/dl (13.0-16.5); Mean Corp Hgb Conc 32.3 g/gl (32-36); Mean Corpuscular Hgb 29.4 pg (27.0-32.0); Mean Corpuscular Volume 91.3 fL (80-94); Mean Platelet Vol. 10.4 fl (6.2-12.0); POSITIVE COUNT NO; POSITIVE DIFFERENTIAL NO; POSITIVE MORPHOLOGY NO; Platelet Count 206 K/mm3 (150-450); RBC Distribution Width CV 13.4 % (11.6-14.6); Red Blood Count 4.72 M/mm3 (4.6-6.2); White Blood Count 6.6 K/mm3 (4.4-11.0)
[2017-12-15 14:42] LABS: Absolute Lymphocyte Count 1.89 X10^3/ul (0.83-4.51); Absolute Neutrophil Count 3.8 X10^3/uL (2.0-7.7); Basophil% 0.6 % (0-1); CRP < 2.90 mg/L (0.0-3.0); Erythrocyte Sedimentation Rate 16 mm/hr (0-20); Lymphocyte # 1.89 X10^3/ul (4.0); Lymphocyte % 28.7 % (19-41); Monocyte% 11.1 % (0-10); Neutrophil # 3.78 X10^3/uL (2.7-7.7); Neutrophil % 57.3 % (47-70)
== END ==
PROVIDERS: Family Provider Family Medicine; PCP Family Medicine; Visit Provider Podiatrist
DX: M86.9 Osteomyelitis, unspecified (principal); L98.499 Non-pressure chronic ulcer of skin of other sites with unspecified severity
CPT/HCPCS: 36415; 85025; 85652; 86140; 87070; 87075; 87077; 87186; 87205

== ENCOUNTER → 2017-12-10 13:20 | Outpatient (CLI) | payer MEDICARE, SELFPAY ==
--- NOTE | 2017-12-10 13:20 | DT_ITS ---
This patient was seen during an EMR downtime December 08, 2017 - December 15, 2017. This patient may have a combination of paper and electronic documentation or all paper documentation. All documentation is viewable within the e-chart portion of ? for each patient visit.
== END ==
PROVIDERS: Family Provider Family Medicine; PCP Family Medicine; Visit Provider Podiatrist
DX: L98.499 Non-pressure chronic ulcer of skin of other sites with unspecified severity (principal); M86.9 Osteomyelitis, unspecified

== ENCOUNTER 2017-12-31 09:30 | Outpatient (RCR) | payer MEDICARE, SELFPAY ==
[2017-12-05 01:16] VITALS: BP 134/77; PULSE 66; RESP 18; TEMP 35
--- NOTE | 2017-12-10 | BON_PTH ---
PATIENT: JANET BERNARD LOC: [facility] U#:[id number] AGE/SX: 77/M ROOM: RE12/31/[address]: Dr. Ml Chapman DPM : 1940 BED: DIS: 01/03/2018 SPEC #: [id number] RECD: 12/10/17 11:58 STATUS: MARIE REQ #: [id number] OPAL: 12/10/17 00:[address]: Ml Chapman DEPT: SURGICAL PATHOLOGY RECD BY: Tony Oconnell ENTERED: 12/11/17 11:58 SP TYPE: Bone OTHR DR: MD Yun Brasher, MANAGER BIOSTATISTICS-C Tissues: Bone of foot, NOS Procedures: Decalcification bone/plaque Surgery Specimen Level IV Comments: @ Ordering doctor for DEC edited from to DR.JFASCI Arango by HORACIO at 12/11/17 153 @ Ordering doctor for SUIII edited from to DR.JFASCI Conchita LEONARD at 12/11/17 1537 @ Submitting doctor edited from to DR.JFASCI Arango by HORACIO at 12/11/17 1537 HEADER OPERATION: Bone biopsy right third toe PRE-OP DIAGNOSIS: Osteomyelitis proximal phalanx TISSUE SUBMITTED: Bone biopsy right third toe MICROSCOPIC DIAGNOSIS Right third toe, bone biopsy: A piece of bone with acute osteomyelitis. AMIRA:kip 12/15/17 MICROSCOPIC DESCRIPTION Slides are reviewed. GROSS DESCRIPTION Received in fixative is one container labeled with the patient's name and designated bone biopsy third toe. The specimen consists of a piece of bone measuring 0.6 x 0.5 x 0.2 cm. The entire specimen is submitted in one cassette after decalcification. / AMIRA:kip 12/11/17 TC:2 CPT: 63966, 22342
[2017-12-17 10:55] VITALS: BP 141/80; PULSE 59; RESP 18; TEMP 35.9
--- NOTE | 2017-12-17 13:18 | PN.PCM_ITS ---
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 Current Visit: Yes Code(s): L97.514 - Non-pressure chronic ulcer of other part of right foot with necrosis of bone (2) Hammer toe of right foot Status: Acute Current Visit: Yes Code(s): M20.41 - Other hammer toe(s) ( acquired), right foot (3) Type 2 diabetes mellitus with diabetic polyneuropathy Status: Acute Current Visit: Yes Code(s): E11.42 - Type 2 diabetes mellitus with diabetic polyneuropathy (4) Leg swelling Status: Chronic Current Visit: Yes Code(s): M79.89 - Other specified soft tissue disorders (5) CKD (chronic kidney disease) stage 3, GFR 30-59 ml/min Status: Chronic Current Visit: Yes Code(s): N18.3 - Chronic kidney disease, stage 3 (moderate) (6) Osteomyelitis of toe of right foot Status: Chronic Current Visit: Yes Code(s): M86.9 - Osteomyelitis, unspecified (7) Chronic kidney disease (CKD) Status: Chronic Current Visit: Yes Code(s): N18.9 - Chronic kidney disease, unspecified (8) PAD (peripheral artery disease) Status: Chronic Current Visit: Yes Code(s): I73.9 - Peripheral vascular disease, unspecified Type of Wound Date of Service: 12/17/17 Chief Complaint: Chronic diabetic foot ulceration of the right third toe, dorsum , with osteomyelitis, Bowie grade 3 History of Wound: This is a 77-year-old obese, diabetic male who presents with a chronic ulceration on the dorsum of his right third toe. He ambulates with a cane, and sits for long periods each day. He wore his right surgical shoe as advised. He was on doxycycline orally at the time of his initial intake, as prescribed by his primary care physician. He had a bone biopsy sent last week and asked about the results. He is also concerned about some calluses and would like to confirm if other ulcers ligamentous to his right great toe into his left fifth toe. He reports occasional drainage from the sites at home when he is changing his socks. He is with his today. He denies fever, chill, nausea, vomiting or foot pain bilateral. He is scheduled to see vascular surgeon, Dr. Menard in January 2018 due to abnormal vascular studies. Progress of Wound: Stable right second toe. New hallux right and fifth toe left - Physical Exam Vital Signs Temp Pulse Resp BP 96.7 F L 59 L 18 141/80 H 12/17/17 10:55 12/17/17 10:55 12/17/17 10:55 12/17/17 10:55 General: Alert, Oriented x3, Cooperative Extremities: No cyanosis, Capillary Refill Less than 3 Seconds, No Calf Tenderness - Negative Katie and Edwards sign bilateral, Diminished Peripheral Pulses, Edema - Bilateral lower extremities, - - Dorsal contraction of lesser digits bilateral in a reducible. Shoes appear to be tight in press on all toes left foot. Surgical shoe right foot noted. Skin: Ulcer/ Wound - There is no purulence, erythema, streaking, odor, crepitus or bogginess on palpation bilateral lower extremities. There is no longer bone extending out of the wound bed on the right second toe and the remaining wound bed is granular fibers. Upon callus debridement there is full-thickness skin discontinuity with granulation tissue to the distal right hallux as well as the dorsal lateral left fifth toe. His adjacent skin is atrophic and hairless bilateral Wound Measurements and Assessment WC - Nurse 1 - General Ulcer Measurement Start: 12/17/17 10:55 Freq: Status: Active Protocol: Activity Type Activity Date Activity User E-Sign Co-Sign Detail Recorded Client Recorded Date Recorded By Document 12/17/17 10:55 [id number] 12/17/17 11:02 DL 12/17/17 10:55 Wound Center Nurse 1 [Ulcer Assessment] #2 RIGHT 3RD TOE- DORSAL ASPECT -Current Size (cm) - Length 1 -Current Size (cm) - Width 0.8 -Current Size (cm) - Depth 0.1 -Total Square Cm 0.8 -Photo Taken No -Exudate Amt Small (1-33%) -Exudate Type Serosanguineous -Wound Margin Distinct, Outline Attached -Granulation Amt None Present (0 %) -Slough/Fibrin Yes -Necrosis Amt Large (67-100%) -Necrotic Tissue Type Adherent Slough -Structure Exposed N/A -Texture ([place]-wound Skin Appearance) Localized Edema -Moisture ([place]-wound Skin Appearance No Abnormality ) -Color ([place]-wound Skin Appearance) Erythema -Temperature ([place]-wound Skin No Abnormality Appearance) (Pt Warm) -Ulcer Cleansing Wound Cleanser -Foul Odor after Cleansing No -Anesthetic Used 4% Lidocaine Solution WC - Nurse 2 - General Ulcer CM Notes Start: 12/17/17 10:55 Freq: Status: Active Protocol: Activity Type Activity Date Activity User E-Sign Co-Sign Detail Recorded Client Recorded Date Recorded By Document 12/17/17 11:27 [id number] 12/17/17 11:37 ANDREA 12/17/17 11:27 Wound Center Nurse 2 [Procedure/Treatment] 4-left 5th toe ulcer -Time 11:35 -Correct Patient Yes -Correct Side, Site, Position Yes -Correct Procedure Yes -Procedure Performed Yes -Type of Procedure Debridement -Clinical Debridement Subcutaneous -Post Debridement Size (cm) - Length 0.3 -Post Debridement Size (cm) - Width 0.4 -Post Debridement Size (cm) - Depth 0.2 -Total Square Cm 0.12 -Wound/Ulcer Outcome Not Healed -Ulcer Cleansing Rinsed/ Irrigated with Saline -Foul Odor after Cleansing No -Bioengineered Tissue No -Bleeding Controlled with Pressure -Treatment Response Procedure Tolerated Well 3-right great toe -Time 11:33 -Correct Patient Yes -Correct Side, Site, Position Yes -Correct Procedure Yes -Procedure Performed Yes -Type of Procedure Debridement -Clinical Debridement Subcutaneous -Post Debridement Size (cm) - Length 0.4 -Post Debridement Size (cm) - Width 0.4 -Post Debridement Size (cm) - Depth 0.2 -Total Square Cm 0.16 -Wound/Ulcer Outcome Not Healed -Ulcer Cleansing Rinsed/ Irrigated with Saline -Foul Odor after Cleansing No -Bioengineered Tissue No -Bleeding Controlled with Pressure -Treatment Response Procedure Tolerated Well #2 RIGHT 3RD TOE- DORSAL ASPECT -Time 11:27 -Correct Patient Yes -Correct Side, Site, Position Yes -Correct Procedure Yes -Procedure Performed Yes -Type of Procedure Debridement -Clinical Debridement Subcutaneous -Post Debridement Size (cm) - Length 1 -Post Debridement Size (cm) - Width 0.9 -Post Debridement Size (cm) - Depth 0.1 -Total Square Cm 0.9 -Wound/Ulcer Outcome Not Healed -Ulcer Cleansing Rinsed/ Irrigated with Saline -Foul Odor after Cleansing No -Bioengineered Tissue No -Bleeding Controlled with Pressure -Treatment Response Procedure Tolerated Well [See Physician Procedure note for Specifics] Pain Scale: 0-10 Numeric [Pain] -Is Patient Pain Free? Yes Musculoskeletal: No Tenderness to Palpation of Joints or Extremities, Muscle Wasting, - - No pain with wound manipulation bilateral Neurological: - - Lack of epicritic sensation light touch bilateral Psych/Mental Status: Normal Affect, Appropriate Debridement Note Post-Debridement Measurements/Treatment WC - Nurse 2 - General Ulcer CM Notes Start: 12/17/17 10:55 Freq: Status: Active Protocol: Activity Type Activity Date Activity User E-Sign Co-Sign Detail Recorded Client Recorded Date Recorded By Document 12/17/17 11:27 [id number] 12/17/17 11:37 ANDREA 12/17/17 11:27 Wound Center Nurse 2 4-left 5th toe ulcer -Time 11:35 -Correct Patient Yes -Correct Side, Site, Position Yes -Correct Procedure Yes -Procedure Performed Yes -Type of Procedure Debridement -Clinical Debridement Subcutaneous -Post Debridement Size (cm) - Length 0.3 -Post Debridement Size (cm) - Width 0.4 -Post Debridement Size (cm) - Depth 0.2 -Total Square Cm 0.12 -Wound/Ulcer Outcome Not Healed -Ulcer Cleansing Rinsed/ Irrigated with Saline -Foul Odor after Cleansing No -Bioengineered Tissue No -Bleeding Controlled with Pressure -Treatment Response Procedure Tolerated Well 3-right great toe -Time 11:33 -Correct Patient Yes -Correct Side, Site, Position Yes -Correct Procedure Yes -Procedure Performed Yes -Type of Procedure Debridement -Clinical Debridement Subcutaneous -Post Debridement Size (cm) - Length 0.4 -Post Debridement Size (cm) - Width 0.4 -Post Debridement Size (cm) - Depth 0.2 -Total Square Cm 0.16 -Wound/Ulcer Outcome Not Healed -Ulcer Cleansing Rinsed/ Irrigated with Saline -Foul Odor after Cleansing No -Bioengineered Tissue No -Bleeding Controlled with Pressure -Treatment Response Procedure Tolerated Well #2 RIGHT 3RD TOE- DORSAL ASPECT -Time 11:27 -Correct Patient Yes -Correct Side, Site, Position Yes -Correct Procedure Yes -Procedure Performed Yes -Type of Procedure Debridement -Clinical Debridement Subcutaneous -Post Debridement Size (cm) - Length 1 -Post Debridement Size (cm) - Width 0.9 -Post Debridement Size (cm) - Depth 0.1 -Total Square Cm 0.9 -Wound/Ulcer Outcome Not Healed -Ulcer Cleansing Rinsed/ Irrigated with Saline -Foul Odor after Cleansing No -Bioengineered Tissue No -Bleeding Controlled with Pressure -Treatment Response Procedure Tolerated Well Pain Scale: 0-10 Numeric Is Patient Pain Free? Yes Wound debrided: dorsal toe 2 Laterality: Right Wound Grade/Stage: grade 3 Type of Debridement: Excisional debridement Anesthesia Used: 5% Lidocaine Gel Depth: in the subcutaneous layer Percentage of wound debrided: 100 Instrument Used: #15 blade Tissue Removed: fibrous, devitalized subcutaneous, biofilm, slough Severity: Fat Layer Exposed Amount of bleeding with debridement: Mild Bleeding Controlled with: Pressure Patient tolerated procedure well - Additional Wound Wound debrided: distal hallux Laterality: Right Wound Grade/Stage: grade 1 Type of Debridement: Excisional debridement Anesthesia Used: 5% Lidocaine Gel Depth: in the subcutaneous layer Percentage of wound debrided: 100 Instrument Used: #15 blade Tissue Removed: fibrous, devitalized subcutaneous, biofilm, slough Severity: Fat Layer Exposed Amount of bleeding with debridement: Mild Bleeding Controlled with: Pressure Patient tolerated procedure: Patient tolerated procedure well - Additional Wound Wound debrided: dorsal lateral 5th toe Laterality: Left Wound Grade/Stage: grade 1 Type of Debridement: Excisional debridement Anesthesia Used: 5% Lidocaine Gel Depth: in the subcutaneous layer Percentage of wound debrided: 100 Instrument Used: #15 blade Tissue Removed: fibrous, devitalized subcutaneous, biofilm, slough Severity: Fat Layer Exposed Amount of bleeding with debridement: Mild Bleeding Controlled with: Pressure Patient tolerated procedure: Patient tolerated procedure well Assessment/Plan Active Problems Leg swelling (Chronic) CKD (chronic kidney disease) stage 3, GFR 30-59 ml/min (Chronic) Osteomyelitis of toe of right foot (Chronic) Ulcer of right foot with necrosis of bone (Chronic) Hammer toe of right foot (Acute) Type 2 diabetes mellitus with diabetic polyneuropathy (Acute) Chronic kidney disease (CKD) (Chronic) PAD (peripheral artery disease) (Chronic) Assessment: Right second toe ulcer with bone exposed and osteomyelitis. Bilateral hammertoes. Right hallux ulcer with fat exposed. Left toe ulcer with fat exposed. Lower extremity edema. Peripheral vascular disease. delayed healing. Malnutrition suspected. Diabetes with neuropathy Plan: I reviewed and discussed the case today. Some new ulcers were identified as noted. Subcutaneous excisional debridement was performed as noted in the nursing panel. Offloading measures are to be implemented with bilateral surgical shoes. A new order was provided for the left foot today. He is to elevate his lower extremities as much as possible, to avoid swelling and edema. To change the dressings daily with santyl. Given that the patient's x-ray confirms the suspicion of osteomyelitis a bone biopsy was sent to microbiology and pathology last week. The pathology report demonstrated acute osteomyelitis the microbiology specimen grew out strep bacteria. His labs are reviewed with white blood cell count of 6.7, sedimentation rate of 16, C-reactive protein less than 2.9, prealbumin of 23.3. Therefore, I recommend infectious disease consultation and this is been arranged for this afternoon at 3 PM. Input will be greatly appreciated. He already completed a short course of doxycycline and I would like to further consider an extended course for treatment of his condition. Additionally, he may be a candidate for hyperbaric oxygen therapy in the near future. The patient has been advised to optimize his nutrition. He has also been advised to optimize his glycemic control. The patient has yet to undergo a noninvasive lower extremity arterial study. 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 We are to request a copy of a noninvasive lower extremity arterial study done in August 2017 at [facility]. A referral to Dr. Menard was also provided he is scheduled to follow-up with vascular surgery in January for consultation. Patient will return in 1 week for reassessment or call sooner if questions or concerns.
--- NOTE | 2017-12-17 15:48 | PCM.HP.ID ---
Problem List (1) Osteomyelitis of toe of right foot Status: Chronic Reason for Consult: osteo Consulted by: Dr. Chapman History of Present Illness: The patient is a 77 year old M with DM neuropathy and R 3rd toe ulcer for past 6 months. He thinks it started with a blister on the top of that toe. Had scab for a while, then took it off himself, leading to bleeding. Referred to wound care by his PCP due to several weeks of progressive pain, redness, swelling, clear/yellow drainage. Had been given course of doxy without much improvement. Bone bx done, cx (+) GBS. No fever or chills. Has developed some other sores on his feet, but no inflammation. Saw Dr. Chapman this AM. Full ROS performed and neg except as noted above. - Medical History Past Medical History (Chronic Problems): Chronic Problems Diabetic foot ulcer (Chronic) Diabetes mellitus (Chronic) Peripheral neuropathy (Chronic) Obesity (Chronic) History of pulmonary embolism (Chronic) Hypertension (Chronic) Hyperlipidemia (Chronic) Arthritis (Chronic) History of [place] (myocardial infarction) (Chronic) History of CVA (cerebrovascular accident) (Chronic) Leg swelling (Chronic) Edema of leg (Chronic) CKD (chronic kidney disease) stage 3, GFR 30-59 ml/min (Chronic) Osteomyelitis of toe of right foot (Chronic) Ulcer of right foot with necrosis of bone (Chronic) Exogenous obesity (Chronic) GERD (gastroesophageal reflux disease) (Chronic) Coronary artery disease involving [place] coronary artery of [place] heart (Chronic) Chronic kidney disease (CKD) (Chronic) Gout (Chronic) Lumbosacral stenosis (Chronic) Degeneration of lumbosacral intervertebral disc (Chronic) Lumbosacral radiculopathy (Chronic) PAD (peripheral artery disease) (Chronic) Diabetes mellitus type II, controlled (Chronic) Allergies/Adverse Reactions: Allergies allopurinol Adverse Reaction (Verified 11/25/17 11:37) Other exenatide [From Byetta] Adverse Reaction (Verified 11/25/17 11:37) Other insulin aspart [From Novolog] Adverse Reaction (Verified 11/25/17 11:37) Other insulin glargine, human recombin. a [From Lantus] Adverse Reaction (Verified 11/25/17 11:37) Other morphine Adverse Reaction (Verified 11/25/17 11:37) Other DOES NOT HELP PAIN, MAKES ME FEEL OUT OF IT [id number] Reductase Inhibitor Adverse Reaction (Verified 11/25/17 11:37) Other Home Medications: Ambulatory Orders Medication Instructions Recorded Furosemide [Lasix] 80 mg PO DAILY 05/20/14 Insulin NPH/Reg 70/30 25 units SC BID 05/20/14 Metoprolol Tartrate [Lopressor 25 mg PO BID 05/20/14 (beta vania)] Timolol 0.5% [Timoptic] 1 drop EACH EYE BID 05/20/14 Tramadol HCl [Ultram ER] 50 mg PO 4X/DAY 05/20/14 Glipizide [Glucotrol Xl] 10 mg PO BID 08/02/15 Chromium Picolinate 500 mcg PO DAILY 01/15/17 Clopidogrel Bisulfate [Plavix] 75 mg PO DAILY 01/15/17 Pantoprazole Sodium [Protonix] 20 mg PO DAILY 01/15/17 Doxycycline 100 mg PO BID 11/25/17 Gabapentin [Neurontin] 300 mg PO TIDCM 11/25/17 Probenecid 500 mg PO BID 11/25/17 Sulindac [Clinoril] 200 mg PO BID 11/25/17 - Social History SMOKING STATUS:: Former smoker Vital Signs Temp Pulse Resp BP 96.7 F L 59 L 18 141/80 H 12/17/17 10:55 12/17/17 10:55 12/17/17 10:55 12/17/17 10:55 Weight: 113.398 kg Microbiology Past 72 Hours 12/10/17 12:00 Gram Stain - Final Bone - Other Wound Culture - Final Streptococcus agalactiae (B) Anaerobic Culture - Final No anaerobic bacteria isolated. - Other Studies Radiology: [] reviewed Other Studies: [] Route of nutrition/ use of supplements: [] Nutritional Intake: [] IV Site: [] Fierro Catheter: [] - Physical Exam General: Alert, Oriented x3, Cooperative, No apparent distress HEENT: Atraumatic, PERRLA, EOMI Neck: Supple, No Nodes Lungs: Clear to auscultation, Normal air movement Cardiovascular: Regular rate, Regular Rhythm, No murmurs Abdomen: Bowel Sounds Present, Soft, Non Tender, Non-Distended Extremities: No edema Skin: Ulcer/ Wound - R 3rd toe with swelling, ulceration, redness Musculoskeletal: No Tenderness to Palpation of Joints or Extremities Neurological: Cranial nerves II-XII grossly intact - Assessment/Plan Antibiotics: [] Assessment/Plan: [] Active and Suspected Problems Hammer toe of right foot (Acute) Type 2 diabetes mellitus with diabetic polyneuropathy (Acute) R 3rd toe GBS osteo with DM neuropathy and CKD - will start 6 week course of keflex 500mg tid for his strep and monitor foot for improvement. Check bmp, cbc, and esr in one week. Thank you, d/w Dr. Chapman. Will follow as needed in wound care.
--- NOTE | 2017-12-17 15:53 | CON.PCM_ITS ---
Problem List (1) Osteomyelitis of toe of right foot Status: Chronic Reason for Consult: osteo Consulted by: Dr. Chapman History of Present Illness: The patient is a 77 year old M with DM neuropathy and R 3rd toe ulcer for past 6 months. He thinks it started with a blister on the top of that toe. Had scab for a while, then took it off himself, leading to bleeding. Referred to wound care by his PCP due to several weeks of progressive pain, redness, swelling, clear/yellow drainage. Had been given course of doxy without much improvement. Bone bx done, cx (+) GBS. No fever or chills. Has developed some other sores on his feet, but no inflammation. Saw Dr. Chapman this AM. Full ROS performed and neg except as noted above. - Medical History Past Medical History (Chronic Problems): Chronic Problems Diabetic foot ulcer (Chronic) Diabetes mellitus (Chronic) Peripheral neuropathy (Chronic) Obesity (Chronic) History of pulmonary embolism (Chronic) Hypertension (Chronic) Hyperlipidemia (Chronic) Arthritis (Chronic) History of [place] (myocardial infarction) (Chronic) History of CVA (cerebrovascular accident) (Chronic) Leg swelling (Chronic) Edema of leg (Chronic) CKD (chronic kidney disease) stage 3, GFR 30-59 ml/min (Chronic) Osteomyelitis of toe of right foot (Chronic) Ulcer of right foot with necrosis of bone (Chronic) Exogenous obesity (Chronic) GERD (gastroesophageal reflux disease) (Chronic) Coronary artery disease involving [place] coronary artery of [place] heart ( Chronic) Chronic kidney disease (CKD) (Chronic) Gout (Chronic) Lumbosacral stenosis (Chronic) Degeneration of lumbosacral intervertebral disc (Chronic) Lumbosacral radiculopathy (Chronic) PAD (peripheral artery disease) (Chronic) Diabetes mellitus type II, controlled (Chronic) Allergies/Adverse Reactions: Allergies allopurinol Adverse Reaction (Verified 11/25/17 11:37) Other exenatide [From [place]] Adverse Reaction (Verified 11/25/17 11:37) Other insulin aspart [From Novolog] Adverse Reaction (Verified 11/25/17 11:37) Other insulin glargine, human recombin. a [From Lantus] Adverse Reaction (Verified 11:37) Other morphine Adverse Reaction (Verified 11/25/17 11:37) Other DOES NOT HELP PAIN, MAKES ME FEEL OUT OF IT Ticotde-Cdt-Dpi Reductase Inhibitor Adverse Reaction (Verified 11/25/17 11:37) Other Home Medications: Ambulatory Orders Medication Instructions Recorded Furosemide [Lasix] 80 mg PO DAILY 05/20/14 Insulin NPH/Reg 70/30 25 units SC BID 05/20/14 Metoprolol Tartrate [Lopressor 25 mg PO BID 05/20/14 (beta vania)] Timolol 0.5% [Timoptic] 1 drop EACH EYE BID 05/20/14 Tramadol HCl [Ultram ER] 50 mg PO 4X/DAY 05/20/14 Glipizide [Glucotrol Xl] 10 mg PO BID 08/02/15 Chromium Picolinate 500 mcg PO DAILY 01/15/17 Clopidogrel Bisulfate [Plavix] 75 mg PO DAILY 01/15/17 Pantoprazole Sodium [Protonix] 20 mg PO DAILY 01/15/17 Doxycycline 100 mg PO BID 11/25/17 Gabapentin [Neurontin] 300 mg PO TIDCM 11/25/17 Probenecid 500 mg PO BID 11/25/17 Sulindac [Clinoril] 200 mg PO BID 11/25/17 - Social History SMOKING STATUS:: Former smoker Vital Signs Temp Pulse Resp BP 96.7 F L 59 L 18 141/80 H 12/17/17 10:55 12/17/17 10:55 12/17/17 10:55 12/17/17 10:55 Weight: 113.398 kg Microbiology Past 72 Hours 12/10/17 12:00 Gram Stain - Final Bone - Other Wound Culture - Final Streptococcus agalactiae (B) Anaerobic Culture - Final No anaerobic bacteria isolated. - Other Studies Radiology: [] reviewed Other Studies: [] Route of nutrition/ use of supplements: [] Nutritional Intake: [] IV Site: [] Fierro Catheter: [] - Physical Exam General: Alert, Oriented x3, Cooperative, No apparent distress HEENT: Atraumatic, PERRLA, EOMI Neck: Supple, No Nodes Lungs: Clear to auscultation, Normal air movement Cardiovascular: Regular rate, Regular Rhythm, No murmurs Abdomen: Bowel Sounds Present, Soft, Non Tender, Non-Distended Extremities: No edema Skin: Ulcer/ Wound - R 3rd toe with swelling, ulceration, redness Musculoskeletal: No Tenderness to Palpation of Joints or Extremities Neurological: Cranial nerves II-XII grossly intact - Assessment/Plan Antibiotics: [] Assessment/Plan: [] Active and Suspected Problems Hammer toe of right foot (Acute) Type 2 diabetes mellitus with diabetic polyneuropathy (Acute) R 3rd toe GBS osteo with DM neuropathy and CKD - will start 6 week course of keflex 500mg tid for his strep and monitor foot for improvement. Check bmp, cbc , and esr in one week. Thank you, d/w Dr. Chapman. Will follow as needed in wound care.
[2017-12-24 11:11] VITALS: BP 146/70; PULSE 55; RESP 18; TEMP 36.2
--- NOTE | 2017-12-24 13:09 | PCM.WC.PN ---
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 Current Visit: Yes Code(s): L97.514 - Non-pressure chronic ulcer of other part of right foot with necrosis of bone (2) Ulcer of right foot with fat layer exposed Status: Resolved Current Visit: Yes Code(s): L97.512 - Non-pressure chronic ulcer of other part of right foot with fat layer exposed (3) Chronic ulcer of left foot with fat layer exposed Status: Resolved Current Visit: Yes Code(s): L97.522 - Non-pressure chronic ulcer of other part of left foot with fat layer exposed (4) Hammer toe of right foot Status: Acute Current Visit: Yes Code(s): M20.41 - Other hammer toe(s) (acquired), right foot (5) Type 2 diabetes mellitus with diabetic polyneuropathy Status: Acute Current Visit: Yes Code(s): E11.42 - Type 2 diabetes mellitus with diabetic polyneuropathy (6) Leg swelling Status: Chronic Current Visit: Yes Code(s): M79.89 - Other specified soft tissue disorders (7) CKD (chronic kidney disease) stage 3, GFR 30-59 ml/min Status: Chronic Current Visit: Yes Code(s): N18.3 - Chronic kidney disease, stage 3 (moderate) (8) Osteomyelitis of toe of right foot Status: Chronic Current Visit: Yes Code(s): M86.9 - Osteomyelitis, unspecified (9) Chronic kidney disease (CKD) Status: Chronic Current Visit: Yes Code(s): N18.9 - Chronic kidney disease, unspecified (10) PAD (peripheral artery disease) Status: Chronic Current Visit: Yes Code(s): I73.9 - Peripheral vascular disease, unspecified Type of Wound Date of Service: 12/24/17 Chief Complaint: 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 He ambulates with a cane, and sits for long periods each day. He wore his right surgical shoe as advised. He was seen and evaluated by infectious disease for his osteomyelitis last week. He was started on a 6 week course of Keflex and he will take these 3 times a day. It is noted he had a previous positive bone biopsy. He denies odor or redness. He is with his today. He denies fever, chill, nausea, vomiting or foot pain bilateral. He has some mild diarrhea yesterday and will continue to monitor this. He is scheduled to see vascular surgeon, Dr. Menard in January 2018 due to abnormal vascular studies. After we discussed hyperbaric chamber oxygen therapy opportunity he is amenable to see if he is an appropriate candidate. He reports his last hemoglobin A1c level 7.5. He admits he does have an extensive cardiac history including open heart bypass surgery. 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 His last echocardiogram was performed approximately 3 years ago and he does not recall his last ejection fraction. He denies any known pulmonary disease and understands he will need to be medically cleared prior to proceeding. Progress of Wound: Stable right third toe. hallux right and fifth toe left-healed today - Physical Exam Vital Signs Temp Pulse Resp BP 97.2 F L 55 L 18 146/70 H 12/24/17 11:11 12/24/17 11:11 12/24/17 11:11 12/24/17 11:11 General: Alert, Oriented x3, Cooperative Extremities: No cyanosis, Capillary Refill Less than 3 Seconds, No Calf Tenderness - Negative Katie and Edwards bilateral, Diminished Peripheral Pulses, Edema, - - Dorsal contraction of lesser toes bilateral with varus rotation of the fifth digit bilateral Skin: Ulcer/ Wound - Negative purulence, erythema, streaking, odor, infection. There is no longer exposed prominent bone to the right toe. Full epithelialization is noted to the distal right hallux and the dorsal lateral left fifth toe and the sites are healed today. His skin is atrophic and hairless. Wound Measurements and Assessment WC - Nurse 1 - General Ulcer Measurement Start: 12/17/17 10:55 Freq: Status: Active Protocol: Activity Type Activity Date Activity User E-Sign Co-Sign Detail Recorded Client Recorded Date Recorded By Document 12/24/17 11:11 TERRI [id number] 12/24/17 11:22 DL 12/24/17 11:11 Wound Center Nurse 1 [Ulcer Assessment] 4-left 5th toe ulcer -Current Size (cm) - Length 0.1 -Current Size (cm) - Width 0.1 -Current Size (cm) - Depth 0.1 -Total Square Cm 0.01 -Photo Taken No -Exudate Amt None Present (0 %) -Wound Margin Thickened -Granulation Amt Small (1-33%) -Granulation Quality Pale -Necrosis Amt Small (1-33%) -Necrotic Tissue Type Adherent Slough -Structure Exposed N/A -Texture ([place]-wound Skin Appearance) Callus -Moisture ([place]-wound Skin Appearance Dry/Scaly ) -Color ([place]-wound Skin Appearance) No Abnormality -Temperature ([place]-wound Skin No Abnormality Appearance) (Pt Warm) -Tenderness on Palpation ([place]-wound No Skin Appearance) -Ulcer Cleansing Rinsed/ Irrigated with Saline -Foul Odor after Cleansing No -Anesthetic Used 4% Lidocaine Solution 3-right great toe -Current Size (cm) - Length 0.1 -Current Size (cm) - Width 0.1 -Current Size (cm) - Depth 0.1 -Total Square Cm 0.01 -Photo Taken No -Exudate Amt None Present (0 %) -Wound Margin Thickened -Granulation Amt Large (67-100%) -Granulation Quality Pale -Necrosis Amt None Present (0 %) -Structure Exposed N/A -Texture ([place]-wound Skin Appearance) Callus -Moisture ([place]-wound Skin Appearance Dry/Scaly ) -Color ([place]-wound Skin Appearance) No Abnormality -Temperature ([place]-wound Skin No Abnormality Appearance) (Pt Warm) -Tenderness on Palpation ([place]-wound No Skin Appearance) -Ulcer Cleansing Wound Cleanser -Foul Odor after Cleansing No -Anesthetic Used 4% Lidocaine Solution #2 RIGHT 3RD TOE- DORSAL ASPECT -Current Size (cm) - Length 0.8 -Current Size (cm) - Width 0.8 -Current Size (cm) - Depth 0.2 -Total Square Cm 0.64 -Photo Taken No -Exudate Amt Small (1-33%) -Exudate Type Serosanguineous -Wound Margin Distinct, Outline Attached -Granulation Amt Medium (34-66%) -Granulation Quality [place] -Necrosis Amt Medium (34-66%) -Necrotic Tissue Type Adherent Slough -Structure Exposed N/A -Texture ([place]-wound Skin Appearance) Localized Edema Scarring -Moisture ([place]-wound Skin Appearance No Abnormality ) -Color ([place]-wound Skin Appearance) Erythema -Temperature ([place]-wound Skin No Abnormality Appearance) (Pt Warm) -Tenderness on Palpation ([place]-wound No Skin Appearance) -Ulcer Cleansing Wound Cleanser -Foul Odor after Cleansing No -Anesthetic Used 4% Lidocaine Solution WC - Nurse 2 - General Ulcer CM Notes Start: 12/17/17 10:55 Freq: Status: Active Protocol: Activity Type Activity Date Activity User E-Sign Co-Sign Detail Recorded Client Recorded Date Recorded By Document 12/24/17 11:34 ANDREA [id number] 12/24/17 11:43 ANDREA 12/24/17 11:34 Wound Center Nurse 2 [Procedure/Treatment] 4-left 5th toe ulcer -Correct Patient No -Correct Side, Site, Position No -Correct Procedure No -Procedure Performed No -Post Debridement Size (cm) - Length 0 -Post Debridement Size (cm) - Width 0 -Post Debridement Size (cm) - Depth 0 -Total Square Cm 0 -Wound/Ulcer Outcome Healed- Epithelialized 3-right great toe -Time 11:35 -Correct Patient Yes -Correct Side, Site, Position Yes -Correct Procedure Yes -Procedure Performed Yes -Type of Procedure Debridement -Clinical Debridement Subcutaneous -Post Debridement Size (cm) - Length 0.1 -Post Debridement Size (cm) - Width 0.1 -Post Debridement Size (cm) - Depth 0.1 -Total Square Cm 0.01 -Wound/Ulcer Outcome Not Healed -Ulcer Cleansing Rinsed/ Irrigated with Saline -Foul Odor after Cleansing No -Bioengineered Tissue No -Bleeding Controlled with Pressure -Treatment Response Procedure Tolerated Well #2 RIGHT 3RD TOE- DORSAL ASPECT -Time 11:35 -Correct Patient Yes -Correct Side, Site, Position Yes -Correct Procedure Yes -Procedure Performed Yes -Type of Procedure Debridement -Clinical Debridement Subcutaneous -Post Debridement Size (cm) - Length 0.9 -Post Debridement Size (cm) - Width 0.8 -Post Debridement Size (cm) - Depth 0.1 -Total Square Cm 0.72 -Wound/Ulcer Outcome Not Healed -Ulcer Cleansing Rinsed/ Irrigated with Saline -Foul Odor after Cleansing No -Bioengineered Tissue No -Bleeding Controlled with Pressure -Treatment Response Procedure Tolerated Well [See Physician Procedure note for Specifics] Pain Scale: 0-10 Numeric [Pain] -Is Patient Pain Free? Yes Musculoskeletal: No Tenderness to Palpation of Joints or Extremities, Muscle Wasting Neurological: - - Lack of epicritic sensation light touch bilateral lower extremities consistent with neuropathy Psych/Mental Status: Normal Affect, Appropriate Debridement Note Post-Debridement Measurements/Treatment WC - Nurse 2 - General Ulcer CM Notes Start: 12/17/17 10:55 Freq: Status: Active Protocol: Activity Type Activity Date Activity User E-Sign Co-Sign Detail Recorded Client Recorded Date Recorded By Document 12/17/17 11:27 [id number] 12/17/17 11:37 Document 12/24/17 11:34 [id number] 12/24/17 11:43 12/17/17 12/24/17 11:27 11:34 Wound Center Nurse 2 4-left 5th toe ulcer -Time 11:35 -Correct Patient Yes No -Correct Side, Site, Position Yes No -Correct Procedure Yes No -Procedure Performed Yes No -Type of Procedure Debridement -Clinical Debridement Subcutaneous -Post Debridement Size (cm) - Length 0.3 0 -Post Debridement Size (cm) - Width 0.4 0 -Post Debridement Size (cm) - Depth 0.2 0 -Total Square Cm 0.12 0 -Wound/Ulcer Outcome Not Healed Healed- Epithelialized -Ulcer Cleansing Rinsed/ Irrigated with Saline -Foul Odor after Cleansing No -Bioengineered Tissue No -Bleeding Controlled with Pressure -Treatment Response Procedure Tolerated Well 3-right great toe -Time 11:33 11:35 -Correct Patient Yes Yes -Correct Side, Site, Position Yes Yes -Correct Procedure Yes Yes -Procedure Performed Yes Yes -Type of Procedure Debridement Debridement -Clinical Debridement Subcutaneous Subcutaneous -Post Debridement Size (cm) - Length 0.4 0.1 -Post Debridement Size (cm) - Width 0.4 0.1 -Post Debridement Size (cm) - Depth 0.2 0.1 -Total Square Cm 0.16 0.01 -Wound/Ulcer Outcome Not Healed Not Healed -Ulcer Cleansing Rinsed/ Rinsed/ Irrigated with Irrigated with Saline Saline -Foul Odor after Cleansing No No -Bioengineered Tissue No No -Bleeding Controlled with Pressure Pressure -Treatment Response Procedure Procedure Tolerated Well Tolerated Well #2 RIGHT 3RD TOE- DORSAL ASPECT -Time 11:27 11:35 -Correct Patient Yes Yes -Correct Side, Site, Position Yes Yes -Correct Procedure Yes Yes -Procedure Performed Yes Yes -Type of Procedure Debridement Debridement -Clinical Debridement Subcutaneous Subcutaneous -Post Debridement Size (cm) - Length 1 0.9 -Post Debridement Size (cm) - Width 0.9 0.8 -Post Debridement Size (cm) - Depth 0.1 0.1 -Total Square Cm 0.9 0.72 -Wound/Ulcer Outcome Not Healed Not Healed -Ulcer Cleansing Rinsed/ Rinsed/ Irrigated with Irrigated with Saline Saline -Foul Odor after Cleansing No No -Bioengineered Tissue No No -Bleeding Controlled with Pressure Pressure -Treatment Response Procedure Procedure Tolerated Well Tolerated Well Pain Scale: 0-10 Numeric Is Patient Pain Free? Yes Yes Wound debrided: dorsal third toe Laterality: Right Wound Grade/Stage: grade 3 Type of Debridement: Excisional debridement Anesthesia Used: 5% Lidocaine Gel Depth: in the subcutaneous layer Percentage of wound debrided: 100 Instrument Used: #15 blade Tissue Removed: fibrous, devitalized subcutaneous, biofilm, slough Severity: Fat Layer Exposed Amount of bleeding with debridement: Mild Bleeding Controlled with: Pressure Patient tolerated procedure well Assessment/Plan Active Problems Leg swelling (Chronic) CKD (chronic kidney disease) stage 3, GFR 30-59 ml/min (Chronic) Osteomyelitis of toe of right foot (Chronic) Ulcer of right foot with necrosis of bone (Chronic) Hammer toe of right foot (Acute) Type 2 diabetes mellitus with diabetic polyneuropathy (Acute) Chronic kidney disease (CKD) (Chronic) PAD (peripheral artery disease) (Chronic) Assessment: Right third toe ulcer with previous bone exposed and osteomyelitis- bowie grade 3. Bilateral hammertoes. Right hallux ulcer, healed. Left toe ulcer (5th) - healed. Lower extremity edema. Peripheral vascular disease. delayed healing. Malnutrition suspected. Diabetes with neuropathy Plan: I reviewed and discussed the case today. It is noted that his new ulcers from last week are fully epithelialized and healed today including the right hallux and left fifth toe. Subcutaneous excisional debridement was performed as noted in the nursing panel to the right third toe. Offloading measures are to be implemented with bilateral surgical shoes. To bring his extra-depth shoes and diabetic insoles next week to clinic for evaluation. We will consider progressing him into that shoe next week on the left side if appropriate. He reports his surgical shoes are very uncomfortable and asked if he can wear open toe sandals; he was permitted to do so. To change the dressings daily with santyl. Given that the patient's x-ray confirms the suspicion of osteomyelitis a bone biopsy was sent to microbiology and pathology last week. The pathology report demonstrated acute osteomyelitis the microbiology specimen grew out strep bacteria. His labs are reviewed with white blood cell count of 6.7, sedimentation rate of 16, C-reactive protein less than 2.9, prealbumin of 23.3. Therefore, I recommended an infectious disease consultation. He will complete a 6 week course of Keflex with routine serial labs. Input will be greatly appreciated. Additionally, he is a candidate for hyperbaric oxygen therapy in the near future. Some screening corrections were initiated and I ordered diagnostic data in preparation for hyperbaric oxygen therapy chamber clearance including CBC, CMP, ESR, CRP, chest x-ray, EKG. A referral to a new hair or beauty salon assistant will also be provided and he understands he will likely need an updated cardiac stress test prior to chamber entry. After insurance preauthorization is confirmed a referral to obtain a medical history and physical clearance with the wound care center provider will be arranged. The indications, planned intervention, daily time commitment, anticipated healing time and management were discussed in detail with the patient he understands and I answered his questions. The patient has been advised to optimize his nutrition. He has also been advised to optimize his glycemic control. The patient has yet to undergo a noninvasive lower extremity arterial study. 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 We are to request a copy of a noninvasive lower extremity arterial study done in August 2017 at [facility]. A referral to Dr. Menard was also provided he is scheduled to follow-up with vascular surgery in January for consultation. Patient will return in 1 week for reassessment or call sooner if questions or concerns.
--- NOTE | 2017-12-24 13:18 | PN.PCM_ITS ---
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 Current Visit: Yes Code(s): L97.514 - Non-pressure chronic ulcer of other part of right foot with necrosis of bone (2) Ulcer of right foot with fat layer exposed Status: Resolved Current Visit: Yes Code(s): L97.512 - Non-pressure chronic ulcer of other part of right foot with fat layer exposed (3) Chronic ulcer of left foot with fat layer exposed Status: Resolved Current Visit: Yes Code(s): L97.522 - Non-pressure chronic ulcer of other part of left foot with fat layer exposed (4) Hammer toe of right foot Status: Acute Current Visit: Yes Code(s): M20.41 - Other hammer toe(s) ( acquired), right foot (5) Type 2 diabetes mellitus with diabetic polyneuropathy Status: Acute Current Visit: Yes Code(s): E11.42 - Type 2 diabetes mellitus with diabetic polyneuropathy (6) Leg swelling Status: Chronic Current Visit: Yes Code(s): M79.89 - Other specified soft tissue disorders (7) CKD (chronic kidney disease) stage 3, GFR 30-59 ml/min Status: Chronic Current Visit: Yes Code(s): N18.3 - Chronic kidney disease, stage 3 (moderate) (8) Osteomyelitis of toe of right foot Status: Chronic Current Visit: Yes Code(s): M86.9 - Osteomyelitis, unspecified (9) Chronic kidney disease (CKD) Status: Chronic Current Visit: Yes Code(s): N18.9 - Chronic kidney disease, unspecified (10) PAD (peripheral artery disease) Status: Chronic Current Visit: Yes Code(s): I73.9 - Peripheral vascular disease, unspecified Type of Wound Date of Service: 12/24/17 Chief Complaint: Chronic diabetic foot ulceration of the right third toe, dorsum , with osteomyelitis, Bowie grade 3 History of Wound: This is a 77-year-old obese, diabetic male who presents with a chronic ulceration on the dorsum of his right third toe. He ambulates with a cane, and sits for long periods each day. He wore his right surgical shoe as advised. He was seen and evaluated by infectious disease for his osteomyelitis last week. He was started on a 6 week course of Keflex and he will take these 3 times a day. It is noted he had a previous positive bone biopsy. He denies odor or redness. He is with his today. He denies fever , chill, nausea, vomiting or foot pain bilateral. He has some mild diarrhea yesterday and will continue to monitor this. He is scheduled to see vascular surgeon, Dr. Menard in January 2018 due to abnormal vascular studies. After we discussed hyperbaric chamber oxygen therapy opportunity he is amenable to see if he is an appropriate candidate. He reports his last hemoglobin A1c level 7.5. He admits he does have an extensive cardiac history including open heart bypass surgery. He is seeking a new massage operator. His last echocardiogram was performed approximately 3 years ago and he does not recall his last ejection fraction. He denies any known pulmonary disease and understands he will need to be medically cleared prior to proceeding. Progress of Wound: Stable right third toe. hallux right and fifth toe left- healed today - Physical Exam Vital Signs Temp Pulse Resp BP 97.2 F L 55 L 18 146/70 H 12/24/17 11:11 12/24/17 11:11 12/24/17 11:11 12/24/17 11:11 General: Alert, Oriented x3, Cooperative Extremities: No cyanosis, Capillary Refill Less than 3 Seconds, No Calf Tenderness - Negative Katie and Edwards bilateral, Diminished Peripheral Pulses, Edema, - - Dorsal contraction of lesser toes bilateral with varus rotation of the fifth digit bilateral Skin: Ulcer/ Wound - Negative purulence, erythema, streaking, odor, infection. There is no longer exposed prominent bone to the right toe. Full epithelialization is noted to the distal right hallux and the dorsal lateral left fifth toe and the sites are healed today. His skin is atrophic and hairless. Wound Measurements and Assessment WC - Nurse 1 - General Ulcer Measurement Start: 12/17/17 10:55 Freq: Status: Active Protocol: Activity Type Activity Date Activity User E-Sign Co-Sign Detail Recorded Client Recorded Date Recorded By Document 12/24/17 11:11 TERRI [id number] 12/24/17 11:22 DL 12/24/17 11:11 Wound Center Nurse 1 [Ulcer Assessment] 4-left 5th toe ulcer -Current Size (cm) - Length 0.1 -Current Size (cm) - Width 0.1 -Current Size (cm) - Depth 0.1 -Total Square Cm 0.01 -Photo Taken No -Exudate Amt None Present (0 %) -Wound Margin Thickened -Granulation Amt Small (1-33%) -Granulation Quality Pale -Necrosis Amt Small (1-33%) -Necrotic Tissue Type Adherent Slough -Structure Exposed N/A -Texture ([place]-wound Skin Appearance) Callus -Moisture ([place]-wound Skin Appearance Dry/Scaly ) -Color ([place]-wound Skin Appearance) No Abnormality -Temperature ([place]-wound Skin No Abnormality Appearance) (Pt Warm) -Tenderness on Palpation ([place]-wound No Skin Appearance) -Ulcer Cleansing Rinsed/ Irrigated with Saline -Foul Odor after Cleansing No -Anesthetic Used 4% Lidocaine Solution 3-right great toe -Current Size (cm) - Length 0.1 -Current Size (cm) - Width 0.1 -Current Size (cm) - Depth 0.1 -Total Square Cm 0.01 -Photo Taken No -Exudate Amt None Present (0 %) -Wound Margin Thickened -Granulation Amt Large (67-100%) -Granulation Quality Pale -Necrosis Amt None Present (0 %) -Structure Exposed N/A -Texture ([place]-wound Skin Appearance) Callus -Moisture ([place]-wound Skin Appearance Dry/Scaly ) -Color ([place]-wound Skin Appearance) No Abnormality -Temperature ([place]-wound Skin No Abnormality Appearance) (Pt Warm) -Tenderness on Palpation ([place]-wound No Skin Appearance) -Ulcer Cleansing Wound Cleanser -Foul Odor after Cleansing No -Anesthetic Used 4% Lidocaine Solution #2 RIGHT 3RD TOE- DORSAL ASPECT -Current Size (cm) - Length 0.8 -Current Size (cm) - Width 0.8 -Current Size (cm) - Depth 0.2 -Total Square Cm 0.64 -Photo Taken No -Exudate Amt Small (1-33%) -Exudate Type Serosanguineous -Wound Margin Distinct, Outline Attached -Granulation Amt Medium (34-66%) -Granulation Quality Emigrant -Necrosis Amt Medium (34-66%) -Necrotic Tissue Type Adherent Slough -Structure Exposed N/A -Texture ([place]-wound Skin Appearance) Localized Edema Scarring -Moisture ([place]-wound Skin Appearance No Abnormality ) -Color ([place]-wound Skin Appearance) Erythema -Temperature ([place]-wound Skin No Abnormality Appearance) (Pt Warm) -Tenderness on Palpation ([place]-wound No Skin Appearance) -Ulcer Cleansing Wound Cleanser -Foul Odor after Cleansing No -Anesthetic Used 4% Lidocaine Solution WC - Nurse 2 - General Ulcer CM Notes Start: 12/17/17 10:55 Freq: Status: Active Protocol: Activity Type Activity Date Activity User E-Sign Co-Sign Detail Recorded Client Recorded Date Recorded By Document 12/24/17 11:34 ANDREA [id number] 12/24/17 11:43 ANDREA 12/24/17 11:34 Wound Center Nurse 2 [Procedure/Treatment] 4-left 5th toe ulcer -Correct Patient No -Correct Side, Site, Position No -Correct Procedure No -Procedure Performed No -Post Debridement Size (cm) - Length 0 -Post Debridement Size (cm) - Width 0 -Post Debridement Size (cm) - Depth 0 -Total Square Cm 0 -Wound/Ulcer Outcome Healed- Epithelialized 3-right great toe -Time 11:35 -Correct Patient Yes -Correct Side, Site, Position Yes -Correct Procedure Yes -Procedure Performed Yes -Type of Procedure Debridement -Clinical Debridement Subcutaneous -Post Debridement Size (cm) - Length 0.1 -Post Debridement Size (cm) - Width 0.1 -Post Debridement Size (cm) - Depth 0.1 -Total Square Cm 0.01 -Wound/Ulcer Outcome Not Healed -Ulcer Cleansing Rinsed/ Irrigated with Saline -Foul Odor after Cleansing No -Bioengineered Tissue No -Bleeding Controlled with Pressure -Treatment Response Procedure Tolerated Well #2 RIGHT 3RD TOE- DORSAL ASPECT -Time 11:35 -Correct Patient Yes -Correct Side, Site, Position Yes -Correct Procedure Yes -Procedure Performed Yes -Type of Procedure Debridement -Clinical Debridement Subcutaneous -Post Debridement Size (cm) - Length 0.9 -Post Debridement Size (cm) - Width 0.8 -Post Debridement Size (cm) - Depth 0.1 -Total Square Cm 0.72 -Wound/Ulcer Outcome Not Healed -Ulcer Cleansing Rinsed/ Irrigated with Saline -Foul Odor after Cleansing No -Bioengineered Tissue No -Bleeding Controlled with Pressure -Treatment Response Procedure Tolerated Well [See Physician Procedure note for Specifics] Pain Scale: 0-10 Numeric [Pain] -Is Patient Pain Free? Yes Musculoskeletal: No Tenderness to Palpation of Joints or Extremities, Muscle Wasting Neurological: - - Lack of epicritic sensation light touch bilateral lower extremities consistent with neuropathy Psych/Mental Status: Normal Affect, Appropriate Debridement Note Post-Debridement Measurements/Treatment WC - Nurse 2 - General Ulcer CM Notes Start: 12/17/17 10:55 Freq: Status: Active Protocol: Activity Type Activity Date Activity User E-Sign Co-Sign Detail Recorded Client Recorded Date Recorded By Document 12/17/17 11:27 [id number] 12/17/17 11:37 Document 12/24/17 11:34 [id number] 12/24/17 11:43 12/17/17 12/24/17 11:27 11:34 Wound Center Nurse 2 4-left 5th toe ulcer -Time 11:35 -Correct Patient Yes No -Correct Side, Site, Position Yes No -Correct Procedure Yes No -Procedure Performed Yes No -Type of Procedure Debridement -Clinical Debridement Subcutaneous -Post Debridement Size (cm) - Length 0.3 0 -Post Debridement Size (cm) - Width 0.4 0 -Post Debridement Size (cm) - Depth 0.2 0 -Total Square Cm 0.12 0 -Wound/Ulcer Outcome Not Healed Healed- Epithelialized -Ulcer Cleansing Rinsed/ Irrigated with Saline -Foul Odor after Cleansing No -Bioengineered Tissue No -Bleeding Controlled with Pressure -Treatment Response Procedure Tolerated Well 3-right great toe -Time 11:33 11:35 -Correct Patient Yes Yes -Correct Side, Site, Position Yes Yes -Correct Procedure Yes Yes -Procedure Performed Yes Yes -Type of Procedure Debridement Debridement -Clinical Debridement Subcutaneous Subcutaneous -Post Debridement Size (cm) - Length 0.4 0.1 -Post Debridement Size (cm) - Width 0.4 0.1 -Post Debridement Size (cm) - Depth 0.2 0.1 -Total Square Cm 0.16 0.01 -Wound/Ulcer Outcome Not Healed Not Healed -Ulcer Cleansing Rinsed/ Rinsed/ Irrigated with Irrigated with Saline Saline -Foul Odor after Cleansing No No -Bioengineered Tissue No No -Bleeding Controlled with Pressure Pressure -Treatment Response Procedure Procedure Tolerated Well Tolerated Well #2 RIGHT 3RD TOE- DORSAL ASPECT -Time 11:27 11:35 -Correct Patient Yes Yes -Correct Side, Site, Position Yes Yes -Correct Procedure Yes Yes -Procedure Performed Yes Yes -Type of Procedure Debridement Debridement -Clinical Debridement Subcutaneous Subcutaneous -Post Debridement Size (cm) - Length 1 0.9 -Post Debridement Size (cm) - Width 0.9 0.8 -Post Debridement Size (cm) - Depth 0.1 0.1 -Total Square Cm 0.9 0.72 -Wound/Ulcer Outcome Not Healed Not Healed -Ulcer Cleansing Rinsed/ Rinsed/ Irrigated with Irrigated with Saline Saline -Foul Odor after Cleansing No No -Bioengineered Tissue No No -Bleeding Controlled with Pressure Pressure -Treatment Response Procedure Procedure Tolerated Well Tolerated Well Pain Scale: 0-10 Numeric Is Patient Pain Free? Yes Yes Wound debrided: dorsal third toe Laterality: Right Wound Grade/Stage: grade 3 Type of Debridement: Excisional debridement Anesthesia Used: 5% Lidocaine Gel Depth: in the subcutaneous layer Percentage of wound debrided: 100 Instrument Used: #15 blade Tissue Removed: fibrous, devitalized subcutaneous, biofilm, slough Severity: Fat Layer Exposed Amount of bleeding with debridement: Mild Bleeding Controlled with: Pressure Patient tolerated procedure well Assessment/Plan Active Problems Leg swelling (Chronic) CKD (chronic kidney disease) stage 3, GFR 30-59 ml/min (Chronic) Osteomyelitis of toe of right foot (Chronic) Ulcer of right foot with necrosis of bone (Chronic) Hammer toe of right foot (Acute) Type 2 diabetes mellitus with diabetic polyneuropathy (Acute) Chronic kidney disease (CKD) (Chronic) PAD (peripheral artery disease) (Chronic) Assessment: Right third toe ulcer with previous bone exposed and osteomyelitis- bowie grade 3. Bilateral hammertoes. Right hallux ulcer, healed. Left toe ulcer (5th) - healed. Lower extremity edema. Peripheral vascular disease. delayed healing. Malnutrition suspected. Diabetes with neuropathy Plan: I reviewed and discussed the case today. It is noted that his new ulcers from last week are fully epithelialized and healed today including the right hallux and left fifth toe. Subcutaneous excisional debridement was performed as noted in the nursing panel to the right third toe. Offloading measures are to be implemented with bilateral surgical shoes. To bring his extra-depth shoes and diabetic insoles next week to clinic for evaluation. We will consider progressing him into that shoe next week on the left side if appropriate. He reports his surgical shoes are very uncomfortable and asked if he can wear open toe sandals; he was permitted to do so. To change the dressings daily with santyl. Given that the patient's x-ray confirms the suspicion of osteomyelitis a bone biopsy was sent to microbiology and pathology last week. The pathology report demonstrated acute osteomyelitis the microbiology specimen grew out strep bacteria. His labs are reviewed with white blood cell count of 6.7, sedimentation rate of 16, C-reactive protein less than 2.9, prealbumin of 23.3. Therefore, I recommended an infectious disease consultation. He will complete a 6 week course of Keflex with routine serial labs. Input will be greatly appreciated. Additionally, he is a candidate for hyperbaric oxygen therapy in the near future. Some screening corrections were initiated and I ordered diagnostic data in preparation for hyperbaric oxygen therapy chamber clearance including CBC, CMP, ESR, CRP, chest x-ray, EKG. A referral to a new massage operator will also be provided and he understands he will likely need an updated cardiac stress test prior to chamber entry. After insurance preauthorization is confirmed a referral to obtain a medical history and physical clearance with the wound care center provider will be arranged. The indications, planned intervention, daily time commitment, anticipated healing time and management were discussed in detail with the patient he understands and I answered his questions. The patient has been advised to optimize his nutrition. He has also been advised to optimize his glycemic control. The patient has yet to undergo a noninvasive lower extremity arterial study. 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 We are to request a copy of a noninvasive lower extremity arterial study done in August 2017 at [facility]. A referral to Dr. Menard was also provided he is scheduled to follow-up with vascular surgery in January for consultation. Patient will return in 1 week for reassessment or call sooner if questions or concerns.
--- NOTE | 2017-12-24 13:29 | EKG12_ITS ---
Test Reason : HYPERBARIC CHAMBER Blood Pressure : / mmHG Vent. Rate : 066 BPM Atrial Rate : 066 BPM P-R Int : 180 ms QRS Dur : 098 ms QT Int : 442 ms P-R-T Axes : 004 -01 045 degrees QTc Int : 463 ms Normal sinus rhythm with sinus arrhythmia Normal ECG Confirmed by STEFANY BERRY, RADHA ([id number]), communications editor LUISA CHAPIN ([id number]) on 12/25/2017 9:09:58 AM Referred By: Andrew Mejia Confirmed By:RADHA MCCALL MD
--- NOTE | 2017-12-24 13:31 | RAD_ITS ---
STUDY: X-RAY CHEST REASON FOR EXAM: Male, 77 years old. Pre hyperbaric oxygen treatment. TECHNIQUE: PA and lateral views of the chest. COMPARISON: None. FINDINGS: Mild prominence of interstitial lung markings at the lung bases. No confluent airspace opacity. No pleural effusion or pneumothorax. Borderline cardiomegaly. 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 Normal mediastinum and guillermina. Normal visualized pulmonary arteries. There is atherosclerotic calcification of the aortic arch. There are diffuse degenerative changes of the visualized thoracic spine. Normal visualized ribs, clavicles, and shoulders. There is no demonstrated abnormality of the visualized soft tissue structures of the upper abdomen. RAD/Chest PA and Lateral IMPRESSION: Bibasilar interstitial change with no evidence of acute cardiopulmonary disease. Electronically Signed: Tony Arana MD at 2:32 EDT Tel , Service support ,
[2017-12-24 14:01] LABS: Erythrocyte Sedimentation Rate 27 mm/hr (0-20)
[2017-12-24 14:03] LABS: Absolute Lymphocyte Count 1.94 X10^3/ul (0.83-4.51); Absolute Neutrophil Count 4.3 X10^3/uL (2.0-7.7); Basophil# 0.05 X10^3/uL; Basophil% 0.7 % (0-1); Eosinophil# 0.13 X10^3/uL; Eosinophils% 1.8 % (0-5); Hemoglobin 12.9 g/dl (13.0-16.5); Lymphocyte # 1.94 X10^3/ul (4.0); Lymphocyte % 26.9 % (19-41); Mean Corp Hgb Conc 33.1 g/gl (32-36); Mean Corpuscular Hgb 30.1 pg (27.0-32.0); Mean Corpuscular Volume 90.9 fL (80-94); Mean Platelet Vol. 10.3 fl (6.2-12.0); Monocyte# 0.77 X10^3/uL; Monocyte% 10.7 % (0-10); Neutrophil # 4.27 X10^3/uL (2.7-7.7); Neutrophil % 59.3 % (47-70); Platelet Count 237 K/mm3 (150-450); RBC Distribution Width CV 13.7 % (11.6-14.6); RBC Distribution Width SD 45.1 fl (35.1-43.9); Red Blood Count 4.29 M/mm3 (4.6-6.2); White Blood Count 7.2 K/mm3 (4.4-11.0)
[2017-12-24 14:04] LABS: POSITIVE COUNT NO; POSITIVE DIFFERENTIAL NO; POSITIVE MORPHOLOGY NO
[2017-12-24 14:39] LABS: ALB/GLOB Ratio 0.8 RATIO (0.9-2.4); AST(SGOT) 27 U/L (15-37); Alanine Aminotransfer ALT/SGPT 28 U/L (16-61); Albumin, Serum 3.2 g/dL (3.2-5.0); Alkaline Phosphatase 152 U/L (45-117); Anion Gap 11 (5-15); BUN 27 mg/dL (7-18); BUN/Creat Ratio 14.8 RATIO (10-20); CRP 3.48 mg/L (0.0-3.0); Calcium,Total 8.3 mg/dL (8.5-10.1); Chloride 104 mmol/L (98-107); Creatinine, Serum 1.82 mg/dL (0.70-1.30); EST Glomerular Filtration Rate 38 mL/min (>60); Est Glom Filt Rate - Afr Amer 47 mL/min (>60); Globulin 4.1 g/dL (2.2-4.2); Glucose 262 mg/dL (74-106); Potassium 4.6 mmol/L (3.5-5.1); Protein, Total 7.3 g/dL (6.4-8.2); Sodium Level 139 mmol/L (136-145)
[2017-12-31 09:32] VITALS: BP 147/71; PULSE 61; RESP 16; TEMP 36.1
--- NOTE | 2017-12-31 10:15 | PCM.WC.PN ---
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 Current Visit: Yes Code(s): L97.514 - Non-pressure chronic ulcer of other part of right foot with necrosis of bone (2) Ulcer of right foot with fat layer exposed Status: Chronic Current Visit: Yes Code(s): L97.512 - Non-pressure chronic ulcer of other part of right foot with fat layer exposed (3) Hammer toe of right foot Status: Acute Current Visit: Yes Code(s): M20.41 - Other hammer toe(s) (acquired), right foot (4) Type 2 diabetes mellitus with diabetic polyneuropathy Status: Acute Current Visit: Yes Code(s): E11.42 - Type 2 diabetes mellitus with diabetic polyneuropathy (5) Leg swelling Status: Chronic Current Visit: Yes Code(s): M79.89 - Other specified soft tissue disorders (6) CKD (chronic kidney disease) stage 3, GFR 30-59 ml/min Status: Chronic Current Visit: Yes Code(s): N18.3 - Chronic kidney disease, stage 3 (moderate) (7) Osteomyelitis of toe of right foot Status: Chronic Current Visit: Yes Code(s): M86.9 - Osteomyelitis, unspecified (8) Chronic kidney disease (CKD) Status: Chronic Current Visit: Yes Code(s): N18.9 - Chronic kidney disease, unspecified (9) PAD (peripheral artery disease) Status: Chronic Current Visit: Yes Code(s): I73.9 - Peripheral vascular disease, unspecified Type of Wound Date of Service: 12/31/17 Chief Complaint: 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 He ambulates with a cane, and sits for long periods each day. He wore his right surgical shoe as advised. He was seen and evaluated by infectious disease for his osteomyelitis previously. He was started on a 6 week course of Keflex and he will take these 3 times a day. It is noted he had a previous positive bone biopsy. He denies odor or redness. He is with his today. He denies fever, chill, nausea, vomiting or foot pain bilateral. He has some mild diarrhea yesterday and will continue to monitor this. He is scheduled to see vascular surgeon, Dr. Menard in January 2018 due to abnormal vascular studies. After we discussed hyperbaric chamber oxygen therapy opportunity he is apprehensive because his cardiac stress test will cost him $250. He reports his last hemoglobin A1c level 7.5. He admits he does have an extensive cardiac history including open heart bypass surgery. He has been cleared by his proof plate maker last week. He denies any known pulmonary disease and understands he will need to be medically cleared prior to proceeding. Progress of Wound: Stable - Physical Exam Vital Signs Temp Pulse Resp BP 96.9 F L 61 16 147/71 H 12/31/17 09:32 12/31/17 09:32 12/31/17 09:32 12/31/17 09:32 General: Alert, Oriented x3, Cooperative HEENT: Atraumatic Extremities: No cyanosis, Capillary Refill Less than 3 Seconds, No Calf Tenderness - Negative Katie and Edwards the lateral, Diminished Peripheral Pulses, Edema Skin: Ulcer/ Wound - No purulence, no erythema, streaking, no odor, no infection bilateral, - - Deep tissue exposure to dorsal right third toe. There is palpable bone and deep structures however there is no longer any necrosis noted. Epithelialization is noted to the other previous wounds Wound Measurements and Assessment WC - Nurse 1 - General Ulcer Measurement Start: 12/17/17 10:55 Freq: Status: Active Protocol: Activity Type Activity Date Activity User E-Sign Co-Sign Detail Recorded Client Recorded Date Recorded By Document 12/31/17 09:32 [facility] [id number] 12/31/17 09:35 [facility] 12/31/17 09:32 Wound Center Nurse 1 [Ulcer Assessment] 3-right great toe -Combined with other wound No -Current Size (cm) - Length 0.1 -Current Size (cm) - Width 0.1 -Current Size (cm) - Depth 0.1 -Total Square Cm 0.01 -Photo Taken No -Epithelialization Large 67-100% -Tunneling No -Undermining/Tunneling No -Circular Undermining No -Exudate Amt None Present (0 %) -Granulation Amt None Present (0 %) -Slough/Fibrin Yes -Necrosis Amt Small (1-33%) -Necrotic Tissue Type Adherent Slough -Structure Exposed N/A -Texture ([place]-wound Skin Appearance) Scarring -Moisture ([place]-wound Skin Appearance Dry/Scaly ) -Color ([place]-wound Skin Appearance) Assessed -Temperature ([place]-wound Skin No Abnormality Appearance) (Pt Warm) -Tenderness on Palpation ([place]-wound No Skin Appearance) -Ulcer Cleansing Rinsed/ Irrigated with Saline -Foul Odor after Cleansing No -Anesthetic Used 4% Lidocaine Solution #2 RIGHT 3RD TOE- DORSAL ASPECT -Combined with other wound No -Current Size (cm) - Length 0.6 -Current Size (cm) - Width 0.8 -Current Size (cm) - Depth 0.2 -Total Square Cm 0.48 -Photo Taken No -Epithelialization None Present -Tunneling No -Undermining/Tunneling No -Circular Undermining No -Exudate Amt None Present (0 %) -Wound Margin Distinct, Outline Attached -Granulation Amt Medium (34-66%) -Granulation Quality Red -Slough/Fibrin Yes -Necrosis Amt Small (1-33%) -Necrotic Tissue Type Adherent Slough -Structure Exposed N/A -Texture ([place]-wound Skin Appearance) Scarring -Moisture ([place]-wound Skin Appearance Maceration ) -Color ([place]-wound Skin Appearance) Erythema -Temperature ([place]-wound Skin No Abnormality Appearance) (Pt Warm) -Tenderness on Palpation ([place]-wound No Skin Appearance) -Ulcer Cleansing Rinsed/ Irrigated with Saline -Foul Odor after Cleansing No -Anesthetic Used 4% Lidocaine Solution [Edema Assessment] -Lower Limb Edema Present No -Right Calf (cm) 43 -Right Ankle (cm) 27.4 WC - Nurse 2 - General Ulcer CM Notes Start: 12/17/17 10:55 Freq: Status: Active Protocol: Activity Type Activity Date Activity User E-Sign Co-Sign Detail Recorded Client Recorded Date Recorded By Document 12/31/17 09:51 ANDREA [id number] 12/31/17 09:55 ANDREA 12/31/17 09:51 Wound Center Nurse 2 [Procedure/Treatment] 3-right great toe -Time 09:51 -Correct Patient Yes -Correct Side, Site, Position Yes -Correct Procedure Yes -Procedure Performed Yes -Type of Procedure Debridement -Clinical Debridement Subcutaneous -Post Debridement Size (cm) - Length 0.8 -Post Debridement Size (cm) - Width 0.8 -Post Debridement Size (cm) - Depth 0.2 -Total Square Cm 0.64 -Wound/Ulcer Outcome Not Healed -Ulcer Cleansing Rinsed/ Irrigated with Saline -Foul Odor after Cleansing No -Bioengineered Tissue No -Bleeding Controlled with Pressure -Treatment Response Procedure Tolerated Well #2 RIGHT 3RD TOE- DORSAL ASPECT -Time 09:53 -Correct Patient Yes -Correct Side, Site, Position Yes -Correct Procedure Yes -Procedure Performed Yes -Type of Procedure Debridement -Clinical Debridement Subcutaneous -Post Debridement Size (cm) - Length 0.2 -Post Debridement Size (cm) - Width 0.2 -Post Debridement Size (cm) - Depth 0.1 -Total Square Cm 0.04 -Wound/Ulcer Outcome Not Healed -Ulcer Cleansing Rinsed/ Irrigated with Saline -Foul Odor after Cleansing No -Bioengineered Tissue No -Bleeding Controlled with Pressure -Treatment Response Procedure Tolerated Well [See Physician Procedure note for Specifics] Pain Scale: 0-10 Numeric [Pain] -Is Patient Pain Free? Yes Musculoskeletal: No Tenderness to Palpation of Joints or Extremities, Muscle Wasting, - - Dorsal contraction of lesser toes right foot Neurological: - - Lack of epicritic sensation to light touch right lower extremity Psych/Mental Status: Normal Affect, Appropriate Debridement Note Post-Debridement Measurements/Treatment WC - Nurse 2 - General Ulcer CM Notes Start: 12/17/17 10:55 Freq: Status: Active Protocol: Activity Type Activity Date Activity User E-Sign Co-Sign Detail Recorded Client Recorded Date Recorded By Document 12/17/17 11:27 [id number] 12/17/17 11:37 Document 12/24/17 11:34 [id number] 12/24/17 11:43 Document 12/31/17 09:51 [id number] 12/31/17 09:55 12/17/17 12/24/17 12/31/17 11:27 11:34 09:51 Wound Center Nurse 2 4-left 5th toe ulcer -Time 11:35 -Correct Patient Yes No -Correct Side, Site, Position Yes No -Correct Procedure Yes No -Procedure Performed Yes No -Type of Procedure Debridement -Clinical Debridement Subcutaneous -Post Debridement Size (cm) - Length 0.3 0 -Post Debridement Size (cm) - Width 0.4 0 -Post Debridement Size (cm) - Depth 0.2 0 -Total Square Cm 0.12 0 -Wound/Ulcer Outcome Not Healed Healed- Epithelialized -Ulcer Cleansing Rinsed/ Irrigated with Saline -Foul Odor after Cleansing No -Bioengineered Tissue No -Bleeding Controlled with Pressure -Treatment Response Procedure Tolerated Well 3-right great toe -Time 11:33 11:35 09:51 -Correct Patient Yes Yes Yes -Correct Side, Site, Position Yes Yes Yes -Correct Procedure Yes Yes Yes -Procedure Performed Yes Yes Yes -Type of Procedure Debridement Debridement Debridement -Clinical Debridement Subcutaneous Subcutaneous Subcutaneous -Post Debridement Size (cm) - Length 0.4 0.1 0.8 -Post Debridement Size (cm) - Width 0.4 0.1 0.8 -Post Debridement Size (cm) - Depth 0.2 0.1 0.2 -Total Square Cm 0.16 0.01 0.64 -Wound/Ulcer Outcome Not Healed Not Healed Not Healed -Ulcer Cleansing Rinsed/ Rinsed/ Rinsed/ Irrigated with Irrigated with Irrigated with Saline Saline Saline -Foul Odor after Cleansing No No No -Bioengineered Tissue No No No -Bleeding Controlled with Pressure Pressure Pressure -Treatment Response Procedure Procedure Procedure Tolerated Well Tolerated Well Tolerated Well #2 RIGHT 3RD TOE- DORSAL ASPECT -Time 11:27 11:35 09:53 -Correct Patient Yes Yes Yes -Correct Side, Site, Position Yes Yes Yes -Correct Procedure Yes Yes Yes -Procedure Performed Yes Yes Yes -Type of Procedure Debridement Debridement Debridement -Clinical Debridement Subcutaneous Subcutaneous Subcutaneous -Post Debridement Size (cm) - Length 1 0.9 0.2 -Post Debridement Size (cm) - Width 0.9 0.8 0.2 -Post Debridement Size (cm) - Depth 0.1 0.1 0.1 -Total Square Cm 0.9 0.72 0.04 -Wound/Ulcer Outcome Not Healed Not Healed Not Healed -Ulcer Cleansing Rinsed/ Rinsed/ Rinsed/ Irrigated with Irrigated with Irrigated with Saline Saline Saline -Foul Odor after Cleansing No No No -Bioengineered Tissue No No No -Bleeding Controlled with Pressure Pressure Pressure -Treatment Response Procedure Procedure Procedure Tolerated Well Tolerated Well Tolerated Well Pain Scale: 0-10 Numeric Is Patient Pain Free? Yes Yes Yes Wound debrided: dorsal right third toe Laterality: Right Wound Grade/Stage: grade 3 Type of Debridement: Excisional debridement Anesthesia Used: 5% Lidocaine Gel Depth: in the subcutaneous layer Percentage of wound debrided: 100 Instrument Used: #15 blade Tissue Removed: fibrous, devitalized subcutaneous, biofilm, slough Severity: Fat Layer Exposed Amount of bleeding with debridement: Mild Bleeding Controlled with: Pressure Patient tolerated procedure well Assessment/Plan Clinical Impression(s) from Imaging Studies Chest X-Ray 12/24/17 13:31 IMPRESSION: Bibasilar interstitial change with no evidence of acute cardiopulmonary disease. Electronically Signed: Tony Arana MD at 2:32 EDT Tel , Service support , Active Problems Leg swelling (Chronic) CKD (chronic kidney disease) stage 3, GFR 30-59 ml/min (Chronic) Osteomyelitis of toe of right foot (Chronic) Ulcer of right foot with necrosis of bone (Chronic) Hammer toe of right foot (Acute) Type 2 diabetes mellitus with diabetic polyneuropathy (Acute) Ulcer of right foot with fat layer exposed (Chronic) Chronic kidney disease (CKD) (Chronic) PAD (peripheral artery disease) (Chronic) Assessment: Right third toe ulcer with previous bone exposed and osteomyelitis- bowie grade 3. Bilateral hammertoes. Right hallux ulcer, healed. Left toe ulcer (5th) - healed. Lower extremity edema. Peripheral vascular disease. delayed healing. Malnutrition suspected. Diabetes with neuropathy Plan: I reviewed and discussed the case today. It is noted that his new ulcers from last week are fully epithelialized and remain healed today including the right hallux and left fifth toe. Subcutaneous excisional debridement was performed as noted in the nursing panel to the right third toe. Offloading measures are to be implemented with bilateral surgical shoes. It is okay to wear protective supportive well fitted shoe in the left lower extremity. To change the dressings daily with santyl. Given that the patient's x-ray confirms the suspicion of osteomyelitis a bone biopsy was sent to microbiology and pathology last week. The pathology report demonstrated acute osteomyelitis the microbiology specimen grew out strep bacteria. His labs are reviewed with white blood cell count of 6.7, sedimentation rate of 16, C-reactive protein less than 2.9, prealbumin of 23.3. Therefore, I recommended an infectious disease consultation. He will complete a 6 week course of Keflex with routine serial labs. Input will be greatly appreciated. Additionally, he is a candidate for hyperbaric oxygen therapy in the near future. Some screening corrections were initiated and I ordered diagnostic data in preparation for hyperbaric oxygen therapy chamber clearance including CBC, CMP, ESR, CRP , chest x-ray, EKG were all reviewed. Cardiac clearance was obtained. He will need a stress test prior to proceeding and is currently refusing. I discussed this in length and today and recommended proceeding forward with this simple test and hyperbaric oxygen therapy. After insurance preauthorization is confirmed a referral to obtain a medical history and physical clearance with the wound care center provider will be arranged. After full discussion he is amenable to proceed with the stress test and he will be scheduled for hyperbaric oxygen therapy clearance with another wound center provider. The indications, planned intervention, daily time commitment, anticipated healing time and management were discussed in detail with the patient he understands and I answered his questions. The patient has been advised to optimize his nutrition. He has also been advised to optimize his glycemic control. The patient has yet to undergo a noninvasive lower extremity arterial study. 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 We are to request a copy of a noninvasive lower extremity arterial study done in August 2017 at [facility]. A referral to Dr. Menard was also provided he is scheduled to follow-up with vascular surgery in January for consultation. Patient will return in 1 week for reassessment or call sooner if questions or concerns.
== END 2018-01-03 23:59 ==
LOC: WC 09:30
PROVIDERS: Family Provider Family Medicine; PCP Family Medicine; Visit Provider Podiatrist
DX: E11.621 Type 2 diabetes mellitus with foot ulcer (principal); E11.42 Type 2 diabetes mellitus with diabetic polyneuropathy; Z86.711 Personal history of pulmonary embolism; E78.5 Hyperlipidemia, unspecified; I10 Essential (primary) hypertension; M19.90 Unspecified osteoarthritis, unspecified site; L97.522 Non-pressure chronic ulcer of other part of left foot with fat layer exposed; L97.512 Non-pressure chronic ulcer of other part of right foot with fat layer exposed; E11.22 Type 2 diabetes mellitus with diabetic chronic kidney disease; N18.3 Chronic kidney disease, stage 3 (moderate); I12.9 Hypertensive chronic kidney disease with stage 1 through stage 4 chronic kidney disease, or unspecified chronic kidney disease; M86.671 Other chronic osteomyelitis, right ankle and foot; E11.51 Type 2 diabetes mellitus with diabetic peripheral angiopathy without gangrene; K21.9 Gastro-esophageal reflux disease without esophagitis; E66.9 Obesity, unspecified; Z68.41 Body mass index [BMI] 40.0-44.9, adult; Z71.3 Dietary counseling and surveillance
CPT/HCPCS: 11042; 11044; 36415; 71046; 80053; 85025; 85652; 86140; 87070; 87075; 87077; 87186; 87205; 88304; 88305; 88311; 93005

== ENCOUNTER 2018-01-28 11:30 | Outpatient (RCR) | payer MEDICARE, SELFPAY ==
[2018-01-04 01:02] VITALS: BP 147/71; PULSE 61; RESP 16; TEMP 36.1
[2018-01-08 13:43] VITALS: BP 117/63; PULSE 56; RESP 18; TEMP 36.1
--- NOTE | 2018-01-08 18:57 | PCM.WC.PN ---
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 Code(s): L97.514 - Non-pressure chronic ulcer of other part of right foot with necrosis of bone (2) Ulcer of right foot with fat layer exposed Status: Chronic Code(s): L97.512 - Non-pressure chronic ulcer of other part of right foot with fat layer exposed (3) Hammer toe of right foot Status: Acute Code(s): M20.41 - Other hammer toe(s) (acquired), right foot (4) Chronic kidney disease (CKD) Status: Chronic Code(s): N18.9 - Chronic kidney disease, unspecified (5) Edema of leg Status: Chronic Code(s): R60.0 - Localized edema (6) Osteomyelitis of toe of right foot Status: Chronic Code(s): M86.9 - Osteomyelitis, unspecified (7) PAD (peripheral artery disease) Status: Chronic Code(s): I73.9 - Peripheral vascular disease, unspecified (8) Peripheral neuropathy Status: Chronic Code(s): G62.9 - Polyneuropathy, unspecified Type of Wound Date of Service: 01/08/18 Chief Complaint: 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 He ambulates with a cane, and sits for long periods each day. He wore his right surgical shoe as advised. He was seen and evaluated by infectious disease for his osteomyelitis previously. He was started on a 6 week course of Keflex and he will take these 3 times a day. It is noted he had a previous positive bone biopsy. He denies odor or redness. He is with his today. He denies fever, chill, nausea, vomiting or foot pain bilateral. He has some mild diarrhea yesterday and will continue to monitor this. He is scheduled to see vascular surgeon, Dr. Menard in January 2018 due to abnormal vascular studies. After we discussed hyperbaric chamber oxygen therapy opportunity he is apprehensive because his cardiac stress test will cost him $250. He reports his last hemoglobin A1c level 7.5. He admits he does have an extensive cardiac history including open heart bypass surgery. He has been cleared by his logistics tech last week. He denies any known pulmonary disease and understands he will need to be medically cleared prior to proceeding. Progress of Wound: cover for Dr. Daugherty, wound is Stable - Physical Exam Vital Signs Temp Pulse Resp BP 97 F L 56 L 18 117/63 01/08/18 13:43 01/08/18 13:43 01/08/18 13:43 01/08/18 13:43 General: Alert, Oriented x3, Cooperative HEENT: Atraumatic Cardiovascular: Regular rate Skin: Ulcer/ Wound - bowie grade three ulcer right third toe with adherant slough present, no signs of acute infection a this time Neurological: Neuro grossly intact Psych/Mental Status: Normal Affect, Appropriate, Alert and oriented to time, place, person, mood and affect Debridement Note Post-Debridement Measurements/Treatment WC - Nurse 2 - General Ulcer CM Notes Start: 01/08/18 13:43 Freq: Status: Active Protocol: Activity Type Activity Date Activity User E-Sign Co-Sign Detail Recorded Client Recorded Date Recorded By Document 01/08/18 14:25 [id number] 01/08/18 14:27 01/08/18 14:25 Wound Center Nurse 2 3-right great toe -Time 14:26 -Correct Patient Yes -Correct Side, Site, Position Yes -Correct Procedure Yes -Procedure Performed Yes -Post Debridement Size (cm) - Length 0 -Post Debridement Size (cm) - Width 0 -Post Debridement Size (cm) - Depth 0 -Total Square Cm 0 -Wound/Ulcer Outcome Healed- Epithelialized -Topical Lidocaine (%) 5 #2 RIGHT 3RD TOE- DORSAL ASPECT -Time 14:26 -Correct Patient Yes -Correct Side, Site, Position Yes -Correct Procedure Yes -Procedure Performed Yes -Type of Procedure Debridement -Clinical Debridement Subcutaneous -Post Debridement Size (cm) - Length 1.1 -Post Debridement Size (cm) - Width 1.1 -Post Debridement Size (cm) - Depth 0.2 -Total Square Cm 1.21 -Wound/Ulcer Outcome Not Healed -Ulcer Cleansing Rinsed/ Irrigated with Saline -Foul Odor after Cleansing No -Bioengineered Tissue No -Topical Lidocaine (%) 5 -Bleeding Controlled with Pressure -Treatment Response Procedure Tolerated Well Pain Scale: 0-10 Numeric Is Patient Pain Free? Yes Wound debrided: Right third toe ulcer Laterality: Right Wound Grade/Stage: 3 Type of Debridement: Excisional debridement Anesthesia Used: 5% Lidocaine Gel Depth: in the subcutaneous layer Percentage of wound debrided: 100 Instrument Used: 5mm curette Tissue Removed: slough and devitalized tissue Severity: Fat Layer Exposed Amount of bleeding with debridement: Mild Bleeding Controlled with: Pressure Patient tolerated procedure well Assessment/Plan Assessment: Right third toe ulcer with previous bone exposed and osteomyelitis- bowie grade 3. Bilateral hammertoes. Right hallux ulcer, healed. Left toe ulcer (5th) - healed. Lower extremity edema. Peripheral vascular disease. delayed healing. Malnutrition suspected. Diabetes with neuropathy Plan: Cover for Dr. Daugherty. I reviewed and discussed the case today. Subcutaneous excisional debridement was performed as noted in the nursing panel to the right third toe. Offloading measures are to be implemented with bilateral surgical shoes. It is okay to wear protective supportive well fitted shoe in the left lower extremity. To change the dressings daily with kobe. Given that the patient's x-ray confirms the suspicion of osteomyelitis a bone biopsy was sent to microbiology and pathology last week. The pathology report demonstrated acute osteomyelitis the microbiology specimen grew out strep bacteria. His labs are reviewed with white blood cell count of 6.7, sedimentation rate of 16, C-reactive protein less than 2.9, prealbumin of 23.3. Therefore, I recommended an infectious disease consultation. He will complete a 6 week course of Keflex with routine serial labs. Input will be greatly appreciated. Additionally, he is a candidate for hyperbaric oxygen therapy in the near future. Pending HBO consult. Some screening corrections were initiated and previoulsy ordered diagnostic data in preparation for hyperbaric oxygen therapy chamber clearance including CBC, CMP, ESR, CRP , chest x-ray, EKG were all reviewed. Cardiac clearance was obtained. He will need a stress test prior to proceeding and is currently refusing. I discussed this in length and today and recommended proceeding forward with this simple test and hyperbaric oxygen therapy. After insurance preauthorization is confirmed a referral to obtain a medical history and physical clearance with the wound care center provider will be arranged. After full discussion he is amenable to proceed with the stress test and he will be scheduled for hyperbaric oxygen therapy clearance with another wound center provider. The indications, planned intervention, daily time commitment, anticipated healing time and management were discussed in detail with the patient he understands and I answered his questions. The patient has been advised to optimize his nutrition. He has also been advised to optimize his glycemic control. The patient has yet to undergo a noninvasive lower extremity arterial study. 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 We are to request a copy of a noninvasive lower extremity arterial study done in August 2017 at [facility]. A referral to Dr. Menard was also provided he is scheduled to follow-up with vascular surgery in January for consultation. Patient will return in 1 week for reassessment or call sooner if questions or concerns. Code Visit [id number]: [id number] Delmi subq tissue 20 sq cm/<
--- NOTE | 2018-01-14 08:06 | PN.PCM_ITS ---
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 Code(s): L97.514 - Non-pressure chronic ulcer of other part of right foot with necrosis of bone (2) Ulcer of right foot with fat layer exposed Status: Chronic Code(s): L97.512 - Non-pressure chronic ulcer of other part of right foot with fat layer exposed (3) Hammer toe of right foot Status: Acute Code(s): M20.41 - Other hammer toe(s) (acquired), right foot (4) Chronic kidney disease (CKD) Status: Chronic Code(s): N18.9 - Chronic kidney disease, unspecified (5) Edema of leg Status: Chronic Code(s): R60.0 - Localized edema (6) Osteomyelitis of toe of right foot Status: Chronic Code(s): M86.9 - Osteomyelitis, unspecified (7) PAD (peripheral artery disease) Status: Chronic Code(s): I73.9 - Peripheral vascular disease, unspecified (8) Peripheral neuropathy Status: Chronic Code(s): G62.9 - Polyneuropathy, unspecified Type of Wound Date of Service: 01/08/18 Chief Complaint: Chronic diabetic foot ulceration of the right third toe, dorsum , with osteomyelitis, Bowie grade 3 History of Wound: This is a 77-year-old obese, diabetic male who presents with a chronic ulceration on the dorsum of his right third toe. He ambulates with a cane, and sits for long periods each day. He wore his right surgical shoe as advised. He was seen and evaluated by infectious disease for his osteomyelitis previously. He was started on a 6 week course of Keflex and he will take these 3 times a day. It is noted he had a previous positive bone biopsy. He denies odor or redness. He is with his today. He denies fever , chill, nausea, vomiting or foot pain bilateral. He has some mild diarrhea yesterday and will continue to monitor this. He is scheduled to see vascular surgeon, Dr. Menard in January 2018 due to abnormal vascular studies. After we discussed hyperbaric chamber oxygen therapy opportunity he is apprehensive because his cardiac stress test will cost him $250. He reports his last hemoglobin A1c level 7.5. He admits he does have an extensive cardiac history including open heart bypass surgery. He has been cleared by his social sciences instructor last week. He denies any known pulmonary disease and understands he will need to be medically cleared prior to proceeding. Progress of Wound: cover for Dr. Daugherty, wound is Stable - Physical Exam Vital Signs Temp Pulse Resp BP 97 F L 56 L 18 117/63 01/08/18 13:43 01/08/18 13:43 01/08/18 13:43 01/08/18 13:43 General: Alert, Oriented x3, Cooperative HEENT: Atraumatic Cardiovascular: Regular rate Skin: Ulcer/ Wound - bowie grade three ulcer right third toe with adherant slough present, no signs of acute infection a this time Neurological: Neuro grossly intact Psych/Mental Status: Normal Affect, Appropriate, Alert and oriented to time, place, person, mood and affect Debridement Note Post-Debridement Measurements/Treatment WC - Nurse 2 - General Ulcer CM Notes Start: 01/08/18 13:43 Freq: Status: Active Protocol: Activity Type Activity Date Activity User E-Sign Co-Sign Detail Recorded Client Recorded Date Recorded By Document 01/08/18 14:25 [id number] 01/08/18 14:27 01/08/18 14:25 Wound Center Nurse 2 3-right great toe -Time 14:26 -Correct Patient Yes -Correct Side, Site, Position Yes -Correct Procedure Yes -Procedure Performed Yes -Post Debridement Size (cm) - Length 0 -Post Debridement Size (cm) - Width 0 -Post Debridement Size (cm) - Depth 0 -Total Square Cm 0 -Wound/Ulcer Outcome Healed- Epithelialized -Topical Lidocaine (%) 5 #2 RIGHT 3RD TOE- DORSAL ASPECT -Time 14:26 -Correct Patient Yes -Correct Side, Site, Position Yes -Correct Procedure Yes -Procedure Performed Yes -Type of Procedure Debridement -Clinical Debridement Subcutaneous -Post Debridement Size (cm) - Length 1.1 -Post Debridement Size (cm) - Width 1.1 -Post Debridement Size (cm) - Depth 0.2 -Total Square Cm 1.21 -Wound/Ulcer Outcome Not Healed -Ulcer Cleansing Rinsed/ Irrigated with Saline -Foul Odor after Cleansing No -Bioengineered Tissue No -Topical Lidocaine (%) 5 -Bleeding Controlled with Pressure -Treatment Response Procedure Tolerated Well Pain Scale: 0-10 Numeric Is Patient Pain Free? Yes Wound debrided: Right third toe ulcer Laterality: Right Wound Grade/Stage: 3 Type of Debridement: Excisional debridement Anesthesia Used: 5% Lidocaine Gel Depth: in the subcutaneous layer Percentage of wound debrided: 100 Instrument Used: 5mm curette Tissue Removed: slough and devitalized tissue Severity: Fat Layer Exposed Amount of bleeding with debridement: Mild Bleeding Controlled with: Pressure Patient tolerated procedure well Assessment/Plan Assessment: Right third toe ulcer with previous bone exposed and osteomyelitis- bowie grade 3. Bilateral hammertoes. Right hallux ulcer, healed. Left toe ulcer (5th) - healed. Lower extremity edema. Peripheral vascular disease. delayed healing. Malnutrition suspected. Diabetes with neuropathy Plan: Cover for Dr. Daugherty. I reviewed and discussed the case today. Subcutaneous excisional debridement was performed as noted in the nursing panel to the right third toe. Offloading measures are to be implemented with bilateral surgical shoes. It is okay to wear protective supportive well fitted shoe in the left lower extremity. To change the dressings daily with kobe. Given that the patient's x-ray confirms the suspicion of osteomyelitis a bone biopsy was sent to microbiology and pathology last week. The pathology report demonstrated acute osteomyelitis the microbiology specimen grew out strep bacteria. His labs are reviewed with white blood cell count of 6.7, sedimentation rate of 16, C-reactive protein less than 2.9, prealbumin of 23.3. Therefore, I recommended an infectious disease consultation. He will complete a 6 week course of Keflex with routine serial labs. Input will be greatly appreciated. Additionally, he is a candidate for hyperbaric oxygen therapy in the near future. Pending HBO consult. Some screening corrections were initiated and previoulsy ordered diagnostic data in preparation for hyperbaric oxygen therapy chamber clearance including CBC, CMP, ESR, CRP , chest x-ray, EKG were all reviewed. Cardiac clearance was obtained. He will need a stress test prior to proceeding and is currently refusing. I discussed this in length and today and recommended proceeding forward with this simple test and hyperbaric oxygen therapy. After insurance preauthorization is confirmed a referral to obtain a medical history and physical clearance with the wound care center provider will be arranged. After full discussion he is amenable to proceed with the stress test and he will be scheduled for hyperbaric oxygen therapy clearance with another wound center provider. The indications, planned intervention, daily time commitment, anticipated healing time and management were discussed in detail with the patient he understands and I answered his questions. The patient has been advised to optimize his nutrition. He has also been advised to optimize his glycemic control. The patient has yet to undergo a noninvasive lower extremity arterial study. 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 We are to request a copy of a noninvasive lower extremity arterial study done in August 2017 at [facility]. A referral to Dr. Menard was also provided he is scheduled to follow-up with vascular surgery in January for consultation. Patient will return in 1 week for reassessment or call sooner if questions or concerns. Code Visit [id number]: [id number] Delmi subq tissue 20 sq cm/<
[2018-01-14 13:27] VITALS: BP 140/64; PULSE 58; RESP 18; TEMP 35.3
--- NOTE | 2018-01-14 13:57 | PN.PCM_ITS ---
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 He ambulates with a cane. He wore his right surgical shoe as advised. He was seen and evaluated by infectious disease for his osteomyelitis previously. He was started on a 6 week course of Keflex and he will take these 3 times a day. It is noted he had a previous positive bone biopsy. He denies odor or redness. He is with his today. He denies fever, chill, nausea, vomiting or foot pain bilateral. He would like to pursue hyperbaric oxygen therapy as recommended. He has an upcoming echocardiogram scheduled later this month and then will proceed with a clearance with Selwyn Mars CNP. Progress of Wound: Stable - Physical Exam Vital Signs Temp Pulse Resp BP 95.5 F L 58 L 18 140/64 H 01/14/18 13:27 01/14/18 13:27 01/14/18 13:27 01/14/18 13:27 General: Alert, Oriented x3, Cooperative Extremities: No cyanosis, Capillary Refill Less than 3 Seconds, No Calf Tenderness - Negative Katie and Edwards sign bilateral, Diminished Peripheral Pulses, Edema - Mild, Tenderness - Dorsal contraction is subtle to lesser toes of the right foot Skin: Ulcer/ Wound - No purulence, no erythema, streaking, no infection locally. There is exposed bone to the dorsal third toe and there is no visible necrosis or discoloration. The peripheral skin is very atrophic. There are no other macerations or wounds. Wound Measurements and Assessment WC - Nurse 1 - General Ulcer Measurement Start: 01/08/18 13:43 Freq: Status: Active Protocol: Activity Type Activity Date Activity User E-Sign Co-Sign Detail Recorded Client Recorded Date Recorded By Document 01/14/18 13:27 DL [email or web address] 01/14/18 13:31 DL 01/14/18 13:27 Wound Center Nurse 1 [Ulcer Assessment] #2 RIGHT 3RD TOE- DORSAL ASPECT -Current Size (cm) - Length 0.5 -Current Size (cm) - Width 0.7 -Current Size (cm) - Depth 0.3 -Total Square Cm 0.35 -Photo Taken No -Exudate Amt Small (1-33%) -Exudate Type Serosanguineous -Wound Margin Distinct, Outline Attached -Granulation Amt Large (67-100%) -Granulation Quality Red -Necrosis Amt Small (1-33%) -Necrotic Tissue Type Adherent Slough -Structure Exposed N/A -Texture ([place]-wound Skin Appearance) Localized Edema -Moisture ([place]-wound Skin Appearance Maceration ) -Color ([place]-wound Skin Appearance) No Abnormality Erythema -Temperature ([place]-wound Skin No Abnormality Appearance) (Pt Warm) -Tenderness on Palpation ([place]-wound No Skin Appearance) -Ulcer Cleansing Wound Cleanser -Foul Odor after Cleansing No -Anesthetic Used 4% Lidocaine Solution Musculoskeletal: No Tenderness to Palpation of Joints or Extremities, Muscle Wasting Neurological: - - Lack of epicritic sensation light touch Psych/Mental Status: Normal Affect, Appropriate Debridement Note Post-Debridement Measurements/Treatment WC - Nurse 2 - General Ulcer CM Notes Start: 01/08/18 13:43 Freq: Status: Active Protocol: Activity Type Activity Date Activity User E-Sign Co-Sign Detail Recorded Client Recorded Date Recorded By Document 01/08/18 14:25 TM [id number] 01/08/18 14:27 TM 07/05/18 14:25 Wound Center Nurse 2 3-right great toe -Time 14:26 -Correct Patient Yes -Correct Side, Site, Position Yes -Correct Procedure Yes -Procedure Performed Yes -Post Debridement Size (cm) - Length 0 -Post Debridement Size (cm) - Width 0 -Post Debridement Size (cm) - Depth 0 -Total Square Cm 0 -Wound/Ulcer Outcome Healed- Epithelialized -Topical Lidocaine (%) 5 #2 RIGHT 3RD TOE- DORSAL ASPECT -Time 14:26 -Correct Patient Yes -Correct Side, Site, Position Yes -Correct Procedure Yes -Procedure Performed Yes -Type of Procedure Debridement -Clinical Debridement Subcutaneous -Post Debridement Size (cm) - Length 1.1 -Post Debridement Size (cm) - Width 1.1 -Post Debridement Size (cm) - Depth 0.2 -Total Square Cm 1.21 -Wound/Ulcer Outcome Not Healed -Ulcer Cleansing Rinsed/ Irrigated with Saline -Foul Odor after Cleansing No -Bioengineered Tissue No -Topical Lidocaine (%) 5 -Bleeding Controlled with Pressure -Treatment Response Procedure Tolerated Well Pain Scale: 0-10 Numeric Is Patient Pain Free? Yes Wound debrided: dorsal third toe Laterality: Right Wound Grade/Stage: grade 3 Type of Debridement: Excisional debridement Anesthesia Used: 5% Lidocaine Gel Depth: in the subcutaneous layer Percentage of wound debrided: 100 Instrument Used: #15 blade Tissue Removed: fibrous, devitalized subcutaneous, biofilm, slough Severity: Fat Layer Exposed Amount of bleeding with debridement: Mild Bleeding Controlled with: Pressure Patient tolerated procedure well Assessment/Plan Active Problems Peripheral neuropathy (Chronic) CKD (chronic kidney disease) stage 3, GFR 30-59 ml/min (Chronic) Ulcer of right foot with necrosis of bone (Chronic) Hammer toe of right foot (Acute) Ulcer of right foot with fat layer exposed (Chronic) Osteomyelitis (Chronic) Assessment: Right third toe ulcer with previous bone exposed and osteomyelitis- bowie grade 3. Bilateral hammertoes. Right hallux ulcer, healed. Left toe ulcer (5th) - healed. Lower extremity edema. Peripheral vascular disease. delayed healing. Malnutrition suspected. Diabetes with neuropathy Plan: I reviewed and discussed the case today. Subcutaneous excisional debridement was performed as noted in the nursing panel to the right third toe. Offloading measures are to be implemented with bilateral surgical shoes. It is okay to wear protective supportive well fitted shoe in the left lower extremity. To change the dressings daily with kobe. Given that the patient' s x-ray confirms the suspicion of osteomyelitis a bone biopsy was sent to microbiology and pathology which confirmed this diagnosis. The pathology report demonstrated acute osteomyelitis the microbiology specimen grew out strep bacteria. His labs are reviewed with white blood cell count of 6.7, sedimentation rate of 16, C-reactive protein less than 2.9, prealbumin of 23.3. Infectious disease is on consultation. He will complete a 6 week course of Keflex with routine serial labs. additionally, he is a candidate for hyperbaric oxygen therapy in the near future. His hyperbaric oxygen therapy consultation was initiated in the clearance is pending and appropriate stress test results; this is scheduled within the next 2 weeks.Cardiac clearance was obtained.After full discussion he is amenable to proceed with the stress test and he will be scheduled for hyperbaric oxygen therapy clearance with another wound center provider. The indications, planned intervention, daily time commitment, anticipated healing time and management were discussed in detail with the patient he understands and I answered his questions. The patient has been advised to optimize his nutrition. He has also been advised to optimize his glycemic control. The patient has yet to undergo a noninvasive lower extremity arterial study. 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 We are to request a copy of a noninvasive lower extremity arterial study done in August 2017 at [facility]. A referral to Dr. Menard was also provided he is scheduled to follow-up with vascular surgery in January for consultation. Patient will return in 1 week for reassessment or call sooner if questions or concerns.
[2018-01-21 12:06] VITALS: BP 160/88; PULSE 63; RESP 18; TEMP 35.8
[2018-01-28 12:00] VITALS: BP 181/83; PULSE 58; RESP 18; TEMP 36.1
--- NOTE | 2018-01-28 14:18 | PCM.WC.PN ---
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 Current Visit: Yes Code(s): L97.514 - Non-pressure chronic ulcer of other part of right foot with necrosis of bone (6) Hammer toe of right foot Status: Acute Current Visit: Yes Code(s): M20.41 - Other hammer toe(s) (acquired), right foot (7) Other specified peripheral vascular diseases Status: Chronic Current Visit: Yes Code(s): I73.89 - Other specified peripheral vascular diseases Type of Wound Date of Service: 01/28/18 Chief Complaint: 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 He ambulates with a cane. He wore his right surgical shoe as advised. He was seen and evaluated by infectious disease for his osteomyelitis previously. He was started on a 6 week course of Keflex and he will take these 3 times a day. It is noted he had a previous positive bone biopsy. He denies odor or redness. He is with his today. He denies fever, chill, nausea, vomiting or foot pain bilateral. He would like to pursue hyperbaric oxygen therapy as recommended. He has an upcoming echocardiogram scheduled at an outside facility and I need to review the results. He will then proceed with a clearance with Selwyn Mars CNP. He has vascular follow-up with Dr. Menard on February 11. Progress of Wound: Stable - Physical Exam Vital Signs Temp Pulse Resp BP 96.9 F L 58 L 18 181/83 H 01/28/18 12:00 01/28/18 12:00 01/28/18 12:00 01/28/18 12:00 General: Alert, Oriented x3, Cooperative Extremities: No cyanosis, Capillary Refill Less than 3 Seconds, No Calf Tenderness - Negative Katie and Edwards right, Diminished Peripheral Pulses, Edema - Mild Skin: Ulcer/ Wound - No purulence, erythema, streaking, no odor, no infection. No exposed bone. Compartments of the toe remain soft right foot Wound Measurements and Assessment WC - Nurse 1 - General Ulcer Measurement Start: 01/08/18 13:43 Freq: Status: Active Protocol: Activity Type Activity Date Activity User E-Sign Co-Sign Detail Recorded Client Recorded Date Recorded By Document 01/28/18 12:00 DL [id number] 01/28/18 12:03 DL 01/28/18 12:00 Wound Center Nurse 1 [Ulcer Assessment] #2 RIGHT 3RD TOE- DORSAL ASPECT -Current Size (cm) - Length 0.6 -Current Size (cm) - Width 0.8 -Current Size (cm) - Depth 0.3 -Total Square Cm 0.48 -Photo Taken No -Undermining/Tunneling Starts (O' 1 clock) -Undermining/Tunneling Ends (O'clock) 4 -Maximum Distance (cm) 0.2 -Exudate Amt Small (1-33%) -Exudate Type Serosanguineous -Wound Margin Distinct, Outline Attached -Granulation Amt Large (67-100%) -Granulation Quality [place] -Necrosis Amt Small (1-33%) -Necrotic Tissue Type Adherent Slough -Structure Exposed N/A -Texture ([place]-wound Skin Appearance) Localized Edema Scarring -Moisture ([place]-wound Skin Appearance No Abnormality ) -Color ([place]-wound Skin Appearance) No Abnormality Rubor -Tenderness on Palpation ([place]-wound No Skin Appearance) -Ulcer Cleansing Rinsed/ Irrigated with Saline -Foul Odor after Cleansing No -Anesthetic Used 4% Lidocaine Solution - Nurse 2 - General Ulcer CM Notes Start: 01/08/18 13:43 Freq: Status: Active Protocol: Activity Type Activity Date Activity User E-Sign Co-Sign Detail Recorded Client Recorded Date Recorded By Document 01/28/18 12:23 TM [id number] 01/28/18 12:25 TM 01/28/18 12:23 Wound Center Nurse 2 [Procedure/Treatment] -Time 12:23 -Correct Patient Yes -Correct Side, Site, Position Yes -Correct Procedure Yes -Procedure Performed Yes -Type of Procedure Debridement -Clinical Debridement Subcutaneous -Post Debridement Size (cm) - Length 0.7 -Post Debridement Size (cm) - Width 0.9 -Post Debridement Size (cm) - Depth 0.3 -Total Square Cm 0.63 -Wound/Ulcer Outcome Not Healed -Ulcer Cleansing Rinsed/ Irrigated with Saline -Foul Odor after Cleansing No -Bioengineered Tissue No -Topical Lidocaine (%) 4 -Bleeding Controlled with Pressure -Treatment Response Procedure Tolerated Well [See Physician Procedure note for Specifics] Musculoskeletal: No Tenderness to Palpation of Joints or Extremities, Muscle Wasting Neurological: - - Lack of epicritic sensation light touch Psych/Mental Status: Normal Affect, Appropriate Debridement Note Post-Debridement Measurements/Treatment WC - Nurse 2 - General Ulcer CM Notes Start: 01/08/18 13:43 Freq: Status: Active Protocol: Activity Type Activity Date Activity User E-Sign Co-Sign Detail Recorded Client Recorded Date Recorded By Document 01/08/18 14:25 [id number] 01/08/18 14:27 TM Document 01/14/18 13:55 TM [id number] 01/14/18 13:57 TM Document 01/28/18 12:23 TM [id number] 01/28/18 12:25 TM 01/08/18 01/14/18 01/28/18 14:25 13:55 12:23 Wound Center Nurse 2 3-right great toe -Time 14:26 -Correct Patient Yes -Correct Side, Site, Position Yes -Correct Procedure Yes -Procedure Performed Yes -Post Debridement Size (cm) - Length 0 -Post Debridement Size (cm) - Width 0 -Post Debridement Size (cm) - Depth 0 -Total Square Cm 0 -Wound/Ulcer Outcome Healed- Epithelialized -Topical Lidocaine (%) 5 #2 RIGHT 3RD TOE- DORSAL ASPECT -Time 14:26 13:56 12:23 -Correct Patient Yes Yes Yes -Correct Side, Site, Position Yes Yes Yes -Correct Procedure Yes Yes Yes -Procedure Performed Yes Yes Yes -Type of Procedure Debridement Debridement Debridement -Clinical Debridement Subcutaneous Subcutaneous Subcutaneous -Post Debridement Size (cm) - Length 1.1 0.6 0.7 -Post Debridement Size (cm) - Width 1.1 0.8 0.9 -Post Debridement Size (cm) - Depth 0.2 0.3 0.3 -Total Square Cm 1.21 0.48 0.63 -Wound/Ulcer Outcome Not Healed Not Healed Not Healed -Ulcer Cleansing Rinsed/ Rinsed/ Rinsed/ Irrigated with Irrigated with Irrigated with Saline Saline Saline -Foul Odor after Cleansing No No No -Bioengineered Tissue No No No -Topical Lidocaine (%) 5 5 4 -Bleeding Controlled with Pressure Pressure Pressure -Treatment Response Procedure Procedure Procedure Tolerated Well Tolerated Well Tolerated Well Pain Scale: 0-10 Numeric Is Patient Pain Free? 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 Bilateral hammertoes. Right hallux ulcer, healed. Left toe ulcer (5th) - healed. Lower extremity edema. Peripheral vascular disease. delayed healing. Malnutrition suspected. Diabetes with neuropathy Plan: I reviewed and discussed the case today. Subcutaneous excisional debridement was performed as noted in the nursing panel to the right third toe. Offloading measures are to be implemented with bilateral surgical shoes. It is okay to wear protective supportive well fitted shoe in the left lower extremity. To change the dressings daily with kobe. Given that the patient's x-ray confirms the suspicion of osteomyelitis a bone biopsy was sent to microbiology and pathology which confirmed this diagnosis. The pathology report demonstrated acute osteomyelitis the microbiology specimen grew out strep bacteria. His labs are reviewed with white blood cell count of 6.7, sedimentation rate of 16, C-reactive protein less than 2.9, prealbumin of 23.3. Infectious disease is on consultation. He will complete a 6 week course of Keflex with routine serial labs. additionally, he is a candidate for hyperbaric oxygen therapy in the near future. His hyperbaric oxygen therapy consultation was initiated in the clearance is pending and appropriate stress test results would still need to be reviewed.Cardiac clearance was obtained.After full discussion he is amenable to proceed with the stress test and he will be scheduled for hyperbaric oxygen therapy clearance with another wound center provider. The indications, planned intervention, daily time commitment, anticipated healing time and management were discussed in detail with the patient he understands and I answered his questions. The patient has been advised to optimize his nutrition. He has also been advised to optimize his glycemic control. The patient has yet to undergo a noninvasive lower extremity arterial study. 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 We are to request a copy of a noninvasive lower extremity arterial study done in August 2017 at [facility]. A referral to Dr. Menard was also provided he is scheduled to follow-up with vascular surgery on February 11 for consultation. Patient will return in 1 week for reassessment or call sooner if questions or concerns.
--- NOTE | 2018-01-28 14:22 | PN.PCM_ITS ---
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 Current Visit: Yes Code(s): L97.514 - Non-pressure chronic ulcer of other part of right foot with necrosis of bone (6) Hammer toe of right foot Status: Acute Current Visit: Yes Code(s): M20.41 - Other hammer toe(s) ( acquired), right foot (7) Other specified peripheral vascular diseases Status: Chronic Current Visit: Yes Code(s): I73.89 - Other specified peripheral vascular diseases Type of Wound Date of Service: 01/28/18 Chief Complaint: Chronic diabetic foot ulceration of the right third toe, dorsum , with osteomyelitis, Bowie grade 3 History of Wound: This is a 77-year-old obese, diabetic male who presents with a chronic ulceration on the dorsum of his right third toe. He ambulates with a cane. He wore his right surgical shoe as advised. He was seen and evaluated by infectious disease for his osteomyelitis previously. He was started on a 6 week course of Keflex and he will take these 3 times a day. It is noted he had a previous positive bone biopsy. He denies odor or redness. He is with his today. He denies fever, chill, nausea, vomiting or foot pain bilateral. He would like to pursue hyperbaric oxygen therapy as recommended. He has an upcoming echocardiogram scheduled at an outside facility and I need to review the results. He will then proceed with a clearance with Selwyn Mars CNP. He has vascular follow-up with Dr. Menard on February 11. Progress of Wound: Stable - Physical Exam Vital Signs Temp Pulse Resp BP 96.9 F L 58 L 18 181/83 H 01/28/18 12:00 01/28/18 12:00 01/28/18 12:00 01/28/18 12:00 General: Alert, Oriented x3, Cooperative Extremities: No cyanosis, Capillary Refill Less than 3 Seconds, No Calf Tenderness - Negative Katie and Edwards right, Diminished Peripheral Pulses, Edema - Mild Skin: Ulcer/ Wound - No purulence, erythema, streaking, no odor, no infection. No exposed bone. Compartments of the toe remain soft right foot Wound Measurements and Assessment WC - Nurse 1 - General Ulcer Measurement Start: 01/08/18 13:43 Freq: Status: Active Protocol: Activity Type Activity Date Activity User E-Sign Co-Sign Detail Recorded Client Recorded Date Recorded By Document 01/28/18 12:00 DL [id number] 01/28/18 12:03 DL 01/28/18 12:00 Wound Center Nurse 1 [Ulcer Assessment] #2 RIGHT 3RD TOE- DORSAL ASPECT -Current Size (cm) - Length 0.6 -Current Size (cm) - Width 0.8 -Current Size (cm) - Depth 0.3 -Total Square Cm 0.48 -Photo Taken No -Undermining/Tunneling Starts (O' 1 clock) -Undermining/Tunneling Ends (O'clock) 4 -Maximum Distance (cm) 0.2 -Exudate Amt Small (1-33%) -Exudate Type Serosanguineous -Wound Margin Distinct, Outline Attached -Granulation Amt Large (67-100%) -Granulation Quality [place] -Necrosis Amt Small (1-33%) -Necrotic Tissue Type Adherent Slough -Structure Exposed N/A -Texture ([place]-wound Skin Appearance) Localized Edema Scarring -Moisture ([place]-wound Skin Appearance No Abnormality ) -Color ([place]-wound Skin Appearance) No Abnormality Rubor -Tenderness on Palpation ([place]-wound No Skin Appearance) -Ulcer Cleansing Rinsed/ Irrigated with Saline -Foul Odor after Cleansing No -Anesthetic Used 4% Lidocaine Solution - Nurse 2 - General Ulcer CM Notes Start: 01/08/18 13:43 Freq: Status: Active Protocol: Activity Type Activity Date Activity User E-Sign Co-Sign Detail Recorded Client Recorded Date Recorded By Document 01/28/18 12:23 TM [id number] 01/28/18 12:25 TM 01/28/18 12:23 Wound Center Nurse 2 [Procedure/Treatment] -Time 12:23 -Correct Patient Yes -Correct Side, Site, Position Yes -Correct Procedure Yes -Procedure Performed Yes -Type of Procedure Debridement -Clinical Debridement Subcutaneous -Post Debridement Size (cm) - Length 0.7 -Post Debridement Size (cm) - Width 0.9 -Post Debridement Size (cm) - Depth 0.3 -Total Square Cm 0.63 -Wound/Ulcer Outcome Not Healed -Ulcer Cleansing Rinsed/ Irrigated with Saline -Foul Odor after Cleansing No -Bioengineered Tissue No -Topical Lidocaine (%) 4 -Bleeding Controlled with Pressure -Treatment Response Procedure Tolerated Well [See Physician Procedure note for Specifics] Musculoskeletal: No Tenderness to Palpation of Joints or Extremities, Muscle Wasting Neurological: - - Lack of epicritic sensation light touch Psych/Mental Status: Normal Affect, Appropriate Debridement Note Post-Debridement Measurements/Treatment WC - Nurse 2 - General Ulcer CM Notes Start: 01/08/18 13:43 Freq: Status: Active Protocol: Activity Type Activity Date Activity User E-Sign Co-Sign Detail Recorded Client Recorded Date Recorded By Document 01/08/18 14:25 [id number] 01/08/18 14:27 TM Document 01/14/18 13:55 TM [id number] 01/14/18 13:57 TM Document 01/28/18 12:23 TM [id number] 01/28/18 12:25 TM 01/08/18 01/14/18 01/28/18 14:25 13:55 12:23 Wound Center Nurse 2 3-right great toe -Time 14:26 -Correct Patient Yes -Correct Side, Site, Position Yes -Correct Procedure Yes -Procedure Performed Yes -Post Debridement Size (cm) - Length 0 -Post Debridement Size (cm) - Width 0 -Post Debridement Size (cm) - Depth 0 -Total Square Cm 0 -Wound/Ulcer Outcome Healed- Epithelialized -Topical Lidocaine (%) 5 #2 RIGHT 3RD TOE- DORSAL ASPECT -Time 14:26 13:56 12:23 -Correct Patient Yes Yes Yes -Correct Side, Site, Position Yes Yes Yes -Correct Procedure Yes Yes Yes -Procedure Performed Yes Yes Yes -Type of Procedure Debridement Debridement Debridement -Clinical Debridement Subcutaneous Subcutaneous Subcutaneous -Post Debridement Size (cm) - Length 1.1 0.6 0.7 -Post Debridement Size (cm) - Width 1.1 0.8 0.9 -Post Debridement Size (cm) - Depth 0.2 0.3 0.3 -Total Square Cm 1.21 0.48 0.63 -Wound/Ulcer Outcome Not Healed Not Healed Not Healed -Ulcer Cleansing Rinsed/ Rinsed/ Rinsed/ Irrigated with Irrigated with Irrigated with Saline Saline Saline -Foul Odor after Cleansing No No No -Bioengineered Tissue No No No -Topical Lidocaine (%) 5 5 4 -Bleeding Controlled with Pressure Pressure Pressure -Treatment Response Procedure Procedure Procedure Tolerated Well Tolerated Well Tolerated Well Pain Scale: 0-10 Numeric Is Patient Pain Free? 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 Bilateral hammertoes. Right hallux ulcer, healed. Left toe ulcer (5th) - healed. Lower extremity edema. Peripheral vascular disease. delayed healing. Malnutrition suspected. Diabetes with neuropathy Plan: I reviewed and discussed the case today. Subcutaneous excisional debridement was performed as noted in the nursing panel to the right third toe. Offloading measures are to be implemented with bilateral surgical shoes. It is okay to wear protective supportive well fitted shoe in the left lower extremity. To change the dressings daily with kobe. Given that the patient' s x-ray confirms the suspicion of osteomyelitis a bone biopsy was sent to microbiology and pathology which confirmed this diagnosis. The pathology report demonstrated acute osteomyelitis the microbiology specimen grew out strep bacteria. His labs are reviewed with white blood cell count of 6.7, sedimentation rate of 16, C-reactive protein less than 2.9, prealbumin of 23.3. Infectious disease is on consultation. He will complete a 6 week course of Keflex with routine serial labs. additionally, he is a candidate for hyperbaric oxygen therapy in the near future. His hyperbaric oxygen therapy consultation was initiated in the clearance is pending and appropriate stress test results would still need to be reviewed.Cardiac clearance was obtained.After full discussion he is amenable to proceed with the stress test and he will be scheduled for hyperbaric oxygen therapy clearance with another wound center provider. The indications, planned intervention, daily time commitment, anticipated healing time and management were discussed in detail with the patient he understands and I answered his questions. The patient has been advised to optimize his nutrition. He has also been advised to optimize his glycemic control. The patient has yet to undergo a noninvasive lower extremity arterial study. 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 We are to request a copy of a noninvasive lower extremity arterial study done in August 2017 at [facility]. A referral to Dr. Menard was also provided he is scheduled to follow-up with vascular surgery on February 11 for consultation. Patient will return in 1 week for reassessment or call sooner if questions or concerns.
== END 2018-02-03 23:59 ==
LOC: WC 11:30
PROVIDERS: Family Provider Family Medicine; PCP Family Medicine; Visit Provider Podiatrist
DX: E11.621 Type 2 diabetes mellitus with foot ulcer (principal); L97.512 Non-pressure chronic ulcer of other part of right foot with fat layer exposed; E11.51 Type 2 diabetes mellitus with diabetic peripheral angiopathy without gangrene; M20.42 Other hammer toe(s) (acquired), left foot; M20.41 Other hammer toe(s) (acquired), right foot; E11.22 Type 2 diabetes mellitus with diabetic chronic kidney disease; N18.9 Chronic kidney disease, unspecified; R60.0 Localized edema; E11.42 Type 2 diabetes mellitus with diabetic polyneuropathy; E66.9 Obesity, unspecified; Z68.41 Body mass index [BMI] 40.0-44.9, adult; Z71.3 Dietary counseling and surveillance
CPT/HCPCS: 11042; 99212; G0463

== ENCOUNTER → 2018-02-20 08:43 | Outpatient (CLI) | payer MEDICARE, SELFPAY ==
--- NOTE | 2018-02-25 08:34 | LEAS ---
Arterial Study - Arterial Study Arterial Study: Date of scan 02/20/[address] Menard History: Patient with nonhealing wound right second toe. Interpretation: Right lower extremity is waveform noted out through the digits on the duplex is a monophasic flow in the ankle with the PT and the DP. ELOY PT 0.46 DP 0.43. Digit brachial index 0.26. Left lower extremity also monophasic flow noted at the ankle on duplex but appeared weight improved waveform compared to the right. ELOY is 0.61 of the PT and 0.97 of the DP. The digit brachial index 0.36. Impression: 1. Right lower extremity with moderate severe arterial occlusive disease with an ELOY 0.46 2. Left lower extremity with moderate arterial occlusive disease with an ELOY 0.97 it is falsely elevated with the monophasic flow and may be closer to the 0.61 of the posterior tibial. 3. Bilateral small vessel disease with digit brachial index 0.36 and 0.36
== END ==
PROVIDERS: Family Provider Family Medicine; PCP Family Medicine; Visit Provider Surgery Vascular Surgery
DX: I70.235 Atherosclerosis of native arteries of right leg with ulceration of other part of foot (principal)
CPT/HCPCS: 93922; 93926

== ENCOUNTER 2018-03-04 10:15 | Outpatient (RCR) | payer MEDICARE, SELFPAY ==
[2018-02-04 00:59] VITALS: BP 181/83; PULSE 58; RESP 18; TEMP 36.1
[2018-02-11 11:44] VITALS: BP 156/74; PULSE 58; RESP 18; TEMP 36.2
--- NOTE | 2018-02-11 16:40 | PN.PCM_ITS ---
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 Current Visit: Yes Code(s): L97.514 - Non-pressure chronic ulcer of other part of right foot with necrosis of bone (3) Hammer toe of right foot Status: Acute Current Visit: Yes Code(s): M20.41 - Other hammer toe(s) ( acquired), right foot (4) Type 2 diabetes mellitus with diabetic polyneuropathy Status: Acute Current Visit: Yes Code(s): E11.42 - Type 2 diabetes mellitus with diabetic polyneuropathy (5) Osteomyelitis Status: Chronic Current Visit: Yes Code(s): M86.9 - Osteomyelitis, unspecified Type of Wound Date of Service: 02/14/18 Chief Complaint: Chronic diabetic foot ulceration of the right third toe, dorsum , with osteomyelitis, Bowie grade 3 History of Wound: This is a 77-year-old obese, diabetic male who presents with a chronic ulceration on the dorsum of his right third toe. He ambulates with a cane. He wore his right surgical shoe as advised. He was seen and evaluated by infectious disease for his osteomyelitis previously. He was started on a 6 week course of Keflex and he will take these 3 times a day. It is noted he had a previous positive bone biopsy. He denies odor or redness. He denies fever, chill, nausea, vomiting or foot pain bilateral. He would like to pursue hyperbaric oxygen therapy as recommended. He is following up with Dr. Menard as advised. He also had a repeat echo in preparation for hyperbaric oxygen therapy clearance and would like to review the results today. Progress of Wound: Stable - Physical Exam Vital Signs Temp Pulse Resp BP 97.1 F L 58 L 18 156/74 H 02/11/18 11:44 02/11/18 11:44 02/11/18 11:44 02/11/18 11:44 General: Alert, Oriented x3, Cooperative Extremities: No cyanosis, Capillary Refill Less than 3 Seconds, No Calf Tenderness - Negative Katie and Edwards sign bilateral, Diminished Peripheral Pulses, Edema, - - Subtle dorsal lesser toe contraction Skin: Ulcer/ Wound - No purulence, no erythema, streaking, no odor, no acute signs of infection., - - There is delayed healing noted with the ulcer site. There is a granular base with deep tissue exposed. There is no longer problem bone extruding out of the wound bed. Wound Measurements and Assessment WC - Nurse 1 - General Ulcer Measurement Start: 02/11/18 11:43 Freq: Status: Active Protocol: Activity Type Activity Date Activity User E-Sign Co-Sign Detail Recorded Client Recorded Date Recorded By Document 02/11/18 11:44 RB [id number] 02/11/18 11:47 RB 02/11/18 11:44 Wound Center Nurse 1 [Ulcer Assessment] #2 RIGHT 3RD TOE- DORSAL ASPECT -Combined with other wound No -Current Size (cm) - Length 0.5 -Current Size (cm) - Width 0.8 -Current Size (cm) - Depth 0.3 -Total Square Cm 0.40 -Photo Taken No -Tunneling No -Undermining/Tunneling No -Circular Undermining No -Classification - Thickness Full Thickness without Exposed Support Structure -Exudate Amt Small (1-33%) -Exudate Type Serosanguineous -Wound Margin Thickened & Rolled Under -Granulation Amt Small (1-33%) -Granulation Quality [place] -Slough/Fibrin Yes -Necrosis Amt Large (67-100%) -Necrotic Tissue Type Adherent Slough -Structure Exposed N/A -Texture ([place]ira-wound Skin Appearance) Assessed Localized Edema -Moisture ([place]-wound Skin Appearance Assessed ) -Color ([place]-wound Skin Appearance) Erythema -Temperature ([place]-wound Skin No Abnormality Appearance) (Pt Warm) -Tenderness on Palpation ([place]ira-wound No Skin Appearance) -Ulcer Cleansing Rinsed/ Irrigated with Saline -Foul Odor after Cleansing No -Anesthetic Used 4% Lidocaine Solution [Edema Assessment] -Lower Limb Edema Present NA - Nurse 2 - General Ulcer CM Notes Start: 02/11/18 11:43 Freq: Status: Active Protocol: Activity Type Activity Date Activity User E-Sign Co-Sign Detail Recorded Client Recorded Date Recorded By Document 02/11/18 12:01 TM [id number] 02/11/18 12:09 02/11/18 12:01 Wound Center Nurse 2 [Procedure/Treatment] #2 RIGHT 3RD TOE- DORSAL ASPECT -Time 12:08 -Correct Patient Yes -Correct Side, Site, Position Yes -Correct Procedure Yes -Procedure Performed Yes -Type of Procedure Debridement -Clinical Debridement Subcutaneous -Post Debridement Size (cm) - Length 0.6 -Post Debridement Size (cm) - Width 0.9 -Post Debridement Size (cm) - Depth 0.3 -Total Square Cm 0.54 -Wound/Ulcer Outcome Not Healed -Ulcer Cleansing Rinsed/ Irrigated with Saline -Foul Odor after Cleansing No -Bioengineered Tissue No -Topical Lidocaine (%) 4 -Bleeding Controlled with Pressure -Treatment Response Procedure Tolerated Well [See Physician Procedure note for Specifics] Pain Scale: 0-10 Numeric [Pain] -Is Patient Pain Free? Yes Musculoskeletal: No Tenderness to Palpation of Joints or Extremities, Muscle Wasting Neurological: - - Lack of epicritic sensation light touch bilateral lower extremity Psych/Mental Status: Normal Affect, Appropriate Debridement Note Post-Debridement Measurements/Treatment WC - Nurse 2 - General Ulcer CM Notes Start: 02/11/18 11:43 Freq: Status: Active Protocol: Activity Type Activity Date Activity User E-Sign Co-Sign Detail Recorded Client Recorded Date Recorded By Document 02/11/18 12:01 [id number] 02/11/18 12:09 02/11/18 12:01 Wound Center Nurse 2 #2 RIGHT 3RD TOE- DORSAL ASPECT -Time 12:08 -Correct Patient Yes -Correct Side, Site, Position Yes -Correct Procedure Yes -Procedure Performed Yes -Type of Procedure Debridement -Clinical Debridement Subcutaneous -Post Debridement Size (cm) - Length 0.6 -Post Debridement Size (cm) - Width 0.9 -Post Debridement Size (cm) - Depth 0.3 -Total Square Cm 0.54 -Wound/Ulcer Outcome Not Healed -Ulcer Cleansing Rinsed/ Irrigated with Saline -Foul Odor after Cleansing No -Bioengineered Tissue No -Topical Lidocaine (%) 4 -Bleeding Controlled with Pressure -Treatment Response Procedure Tolerated Well Pain Scale: 0-10 Numeric Is Patient Pain Free? 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 Bilateral hammertoes. Right hallux ulcer, healed. Left toe ulcer (5th) - healed. Lower extremity edema. Peripheral vascular disease. delayed healing. Malnutrition suspected. Diabetes with neuropathy Plan: I reviewed and discussed the case today. Subcutaneous excisional debridement was performed as noted in the nursing panel to the right third toe. Offloading measures are to be implemented with bilateral surgical shoes. It is okay to wear protective supportive well fitted shoe in the left lower extremity. To change the dressings daily with kobe. Given that the patient' s x-ray confirms the suspicion of osteomyelitis a bone biopsy was sent to microbiology and pathology which confirmed this diagnosis. The pathology report demonstrated acute osteomyelitis the microbiology specimen grew out strep bacteria. His labs are reviewed with white blood cell count of 6.7, sedimentation rate of 16, C-reactive protein less than 2.9, prealbumin of 23.3. Infectious disease is on consultation. He will complete a 6 week course of Keflex with routine serial labs. additionally, he is a candidate for hyperbaric oxygen therapy in the near future. His hyperbaric oxygen therapy consultation was initiated in the clearance is pending and appropriate stress test results were recently obtained reviewed. His ejection fraction is 55-60% and cardiac clearance was obtained.After full discussion he is amenable to proceed with the hyperbaric oxygen therapy clearance and treatment sessions anticipated at at least 40 sessions. The indications, planned intervention, daily time commitment, anticipated healing time and management were discussed in detail with the patient he understands and I answered his questions. The patient has been advised to optimize his nutrition. He has also been advised to optimize his glycemic control. The patient has yet to undergo a noninvasive lower extremity arterial study. 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 To continue follow-up with Dr. Menard as advised; intervention is planned. Patient will return in 1 week for reassessment or call sooner if questions or concerns. He will also follow-up with Selwyn Mars to confirm if he is officially cleared for the hyperbaric oxygen therapy sessions.
--- NOTE | 2018-02-12 17:36 | PCM.CONHBO ---
(1) Type 2 diabetes mellitus with diabetic polyneuropathy Status: Acute Current Visit: Yes Code(s): E11.42 - Type 2 diabetes mellitus with diabetic polyneuropathy (2) Osteomyelitis of toe of right foot Status: Chronic Current Visit: Yes Code(s): M86.9 - Osteomyelitis, unspecified (3) Ulcer of right foot with necrosis of bone Status: Chronic Current Visit: Yes Code(s): L97.514 - Non-pressure chronic ulcer of other part of right foot with necrosis of bone (4) Osteomyelitis Status: Chronic Current Visit: Yes Code(s): M86.9 - Osteomyelitis, unspecified (5) Chronic kidney disease (CKD) Status: Chronic Current Visit: No Code(s): N18.9 - Chronic kidney disease, unspecified (6) Diabetes mellitus type II, controlled Status: Chronic Current Visit: No Code(s): E11.9 - Type 2 diabetes mellitus without complications (7) Hyperlipidemia Status: Chronic Current Visit: No Code(s): E78.5 - Hyperlipidemia, unspecified (8) Hypertension Status: Chronic Current Visit: No Code(s): I10 - Essential (primary) hypertension (9) PAD (peripheral artery disease) Status: Chronic Current Visit: No Code(s): I73.9 - Peripheral vascular disease, unspecified History of Present Illness Date of Service: 02/12/18 Presenting Chief Complaint: Chronic diabetic foot ulceration of the right third toe, dorsum, with osteomyelitis, Bowie grade 3 The patient is a 77 year old M who [facility] evaluate the possibility of initiating hyperbaric oxygen therapy for treatment of Chronic diabetic foot ulceration of the right third toe, dorsum, with osteomyelitis, Bowie grade 3. The patient has type 2 diabetes mellitus and his ulceration has been present since June 2017. The patient ambulates with a cane. He is unable to utilize an offloading shoe due to balance problems and high risk of falling. He was seen and evaluated by infectious disease for his osteomyelitis previously and started on a 6 week course of Keflex 3 times a day that he has completed. Previous bone biopsy on 12/10/2017 demonstrated acute osteomyelitis. A chest x-ray on was negative for acute changes. He was recently seen by cardiology and cardiac clearance was obtained. A Lexiscan stress test was performed which was negative for inducible ischemia and his ejection fraction was 55-60%. The patient does have a vascular follow-up with Dr. Menard who he is routinely seen. Patient is currently utilizing daily dressing changes with Simona to maintain a moist wound bed. Most recent labs were reviewed, sed rate of 16, CRP of 2.9, and prealbumin of 23.3. Most recent A1c on 11/25/2017 was 7.4 and patient's fasting blood glucoses range in the lower 100 range. Patient will be undergoing noninvasive lower extremity arterial study by Dr. Menard later this month. 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 Patient has been getting weekly debridements at the wound healing center. He denies any acute concerns at this time. The patient otherwise denies any fever, chills, nausea, vomiting, shortness of breath, chest pain or pressure, palpitations, orthopnea, lower extremity edema, syncope or presyncopal episodes. Past Medical History Chronic Problems Diabetic foot ulcer (Chronic) Diabetes mellitus (Chronic) Peripheral neuropathy (Chronic) Obesity (Chronic) History of pulmonary embolism (Chronic) Hypertension (Chronic) Hyperlipidemia (Chronic) Arthritis (Chronic) History of DC (myocardial infarction) (Chronic) History of CVA (cerebrovascular accident) (Chronic) Leg swelling (Chronic) Edema of leg (Chronic) CKD (chronic kidney disease) stage 3, GFR 30-59 ml/min (Chronic) Osteomyelitis of toe of right foot (Chronic) Ulcer of right foot with necrosis of bone (Chronic) Ulcer of right foot with fat layer exposed (Chronic) Osteomyelitis (Chronic) Other specified peripheral vascular diseases (Chronic) Exogenous obesity (Chronic) GERD (gastroesophageal reflux disease) (Chronic) Coronary artery disease involving [place] coronary artery of [place] heart (Chronic) Chronic kidney disease (CKD) (Chronic) Gout (Chronic) Lumbosacral stenosis (Chronic) Degeneration of lumbosacral intervertebral disc (Chronic) Lumbosacral radiculopathy (Chronic) PAD (peripheral artery disease) (Chronic) Diabetes mellitus type II, controlled (Chronic) Allergies/Adverse Reactions: Allergies allopurinol Adverse Reaction (Verified 11/25/17 11:37) Other exenatide [From Byetta] Adverse Reaction (Verified 11/25/17 11:37) Other insulin aspart [From Novolog] Adverse Reaction (Verified 11/25/17 11:37) Other insulin glargine, human recombin. a [From Lantus] Adverse Reaction (Verified 11/25/17 11:37) Other morphine Adverse Reaction (Verified 11/25/17 11:37) Other DOES NOT HELP PAIN, MAKES ME FEEL OUT OF IT Dhicugz-Mql-Ata Reductase Inhibitor Adverse Reaction (Verified 11/25/17 11:37) Other Home Medications: Ambulatory Orders Medication Instructions Recorded Furosemide [Lasix] 80 mg PO DAILY 05/20/14 Insulin NPH/Reg 70/30 25 units SC BID 05/20/14 Metoprolol Tartrate [Lopressor 25 mg PO BID 05/20/14 (beta vania)] Timolol 0.5% [Timoptic] 1 drop EACH EYE BID 05/20/14 Tramadol HCl [Ultram ER] 50 mg PO 4X/DAY 05/20/14 Glipizide [Glucotrol Xl] 10 mg PO BID 08/02/15 Chromium Picolinate 500 mcg PO DAILY 01/15/17 Clopidogrel Bisulfate [Plavix] 75 mg PO DAILY 01/15/17 Pantoprazole Sodium [Protonix] 20 mg PO DAILY 01/15/17 Doxycycline 100 mg PO BID 11/25/17 Gabapentin [Neurontin] 300 mg PO TIDCM 11/25/17 Probenecid 500 mg PO BID 11/25/17 Sulindac [Clinoril] 200 mg PO BID 11/25/17 Paternal Family History: - - The patient's father at age of 69 with a history of coronary artery disease and diabetes mellitus. The patient's mother lived to be 95 years of age, and passed of old age. Smoking Status: Former smoker Tobacco Use: Non-smoker Review of Systems Constitutional: Denies: Chills, Fever, Weight Change Eyes: Denies: Pain, Vision Change HEENT: Denies: Difficulty Hearing, Difficulty Swallowing, Sinus Congestion Cardiovascular: Denies: Chest Pain, Palpitations Respiratory: Denies: Cough, Shortness of Breath Gastrointestinal: Denies: Diarrhea, Nausea, Vomiting Genitourinary: Denies: Dysuria, Hematuria Skin: Reports: Wounds - See HPI Endocrine: Denies: Heat/ Cold Intolerance, Polydipsia, Polyuria Hematologic/ Lymphatic: Denies: Easy Bruising, Easy Bleeding - Physical Exam Vital Signs Temp Pulse Resp BP 97.1 F L 58 L 18 156/74 H 02/11/18 11:44 02/11/18 11:44 02/11/18 11:44 02/11/18 11:44 General: Alert, Oriented x3, Cooperative, No apparent distress HEENT: Atraumatic, PERRLA, EOMI, Normocephalic, TM's Clear Oral: Moist Mucosa Neck: Supple, No JVD, Negative Carotid Bruits Lungs: Clear to auscultation, Normal air movement Cardiovascular: Regular rate, Regular Rhythm, Normal S1, Normal S2 Abdomen: Bowel Sounds Present, Soft, Non Tender, Obese Extremities: Edema - Generalized bilateral lower extremity edema Skin: Ulcer/ Wound - Vito stage III right third toe DFU with adherent slough, covered with dressing Wound Measurements and Assessment WC - Nurse 1 - General Ulcer Measurement Start: 02/11/18 11:43 Freq: Status: Active Protocol: Activity Type Activity Date Activity User E-Sign Co-Sign Detail Recorded Client Recorded Date Recorded By Document 02/11/18 11:44 ALIDA [id number] 02/11/18 11:47 RB 02/11/18 11:44 Wound Center Nurse 1 [Ulcer Assessment] #2 RIGHT 3RD TOE- DORSAL ASPECT -Combined with other wound No -Current Size (cm) - Length 0.5 -Current Size (cm) - Width 0.8 -Current Size (cm) - Depth 0.3 -Total Square Cm 0.40 -Photo Taken No -Tunneling No -Undermining/Tunneling No -Circular Undermining No -Classification - Thickness Full Thickness without Exposed Support Structure -Exudate Amt Small (1-33%) -Exudate Type Serosanguineous -Wound Margin Thickened & Rolled Under -Granulation Amt Small (1-33%) -Granulation Quality [place] -Slough/Fibrin Yes -Necrosis Amt Large (67-100%) -Necrotic Tissue Type Adherent Slough -Structure Exposed N/A -Texture ([place]elmira-wound Skin Appearance) Assessed Localized Edema -Moisture ([place]ira-wound Skin Appearance Assessed ) -Color ([place]-wound Skin Appearance) Erythema -Temperature ([place]-wound Skin No Abnormality Appearance) (Pt Warm) -Tenderness on Palpation ([place]elmira-wound No Skin Appearance) -Ulcer Cleansing Rinsed/ Irrigated with Saline -Foul Odor after Cleansing No -Anesthetic Used 4% Lidocaine Solution [Edema Assessment] -Lower Limb Edema Present NA WC - Nurse 2 - General Ulcer CM Notes Start: 02/11/18 11:43 Freq: Status: Active Protocol: Activity Type Activity Date Activity User E-Sign Co-Sign Detail Recorded Client Recorded Date Recorded By Document 02/11/18 12:01 [id number] 02/11/18 12:09 02/11/18 12:01 Wound Center Nurse 2 [Procedure/Treatment] #2 RIGHT 3RD TOE- DORSAL ASPECT -Time 12:08 -Correct Patient Yes -Correct Side, Site, Position Yes -Correct Procedure Yes -Procedure Performed Yes -Type of Procedure Debridement -Clinical Debridement Subcutaneous -Post Debridement Size (cm) - Length 0.6 -Post Debridement Size (cm) - Width 0.9 -Post Debridement Size (cm) - Depth 0.3 -Total Square Cm 0.54 -Wound/Ulcer Outcome Not Healed -Ulcer Cleansing Rinsed/ Irrigated with Saline -Foul Odor after Cleansing No -Bioengineered Tissue No -Topical Lidocaine (%) 4 -Bleeding Controlled with Pressure -Treatment Response Procedure Tolerated Well [See Physician Procedure note for Specifics] Pain Scale: 0-10 Numeric [Pain] -Is Patient Pain Free? Yes Lymphatic: No Cervical, Supraclavicular, or Inguinal Adenopathy Neurological: Cranial nerves II-XII grossly intact, Neuro grossly intact Psych/Mental Status: Normal Affect, Appropriate, Alert and oriented to time, place, person, mood and affect Assessment/Plan Active Problems Osteomyelitis of toe of right foot (Chronic) Ulcer of right foot with necrosis of bone (Chronic) Hammer toe of right foot (Acute) Type 2 diabetes mellitus with diabetic polyneuropathy (Acute) Osteomyelitis (Chronic) JANET BERNARD is an appropriate candidate for hyperbaric oxygen therapy. Hyperbaric Oxygen Therapy would be an essential adjunct in the resolution and treatment of this patient's presenting problem. This patient has sufficient physiologic and psychological stamina to undergo the rigors of hyperbaric oxygen therapy. As such, I recommend the following: Hyperbaric Oxygen Treatments at 2.0 ELLA in 100% Oxygen for 90 minutes per treatment, for 40 treatments, reevaluate after 20. I have discussed the possible benefits of hyperbaric oxygen therapy with this patient. I have also presented and described the risks, including: air gas embolism, pneumothorax, central nervous system and pulmonary oxygen toxicity, flash pulmonary edema, hypoglycemia, reversible visual refractive changes, ear and sinus christian-trauma, and confinement anxiety. The patient has verbalized understanding of these risks, and is still wanting to undergo hyperbaric oxygen therapy. The patient understands the significant time and transportation commitment involved in daily treatments of up to two hours duration and has stated that they are willing to commit to this therapy. - HBOT Diagnosis Bowie III Diabetic Foot/Toe Ulcer (707.15/250.8) Acute Osteomyelitis (730.05) Code Visit Office Visits / Consults: [id number] OV L4 Est
[2018-02-12 18:13] VITALS: BP 138/75; PULSE 58; RESP 16; TEMP 36.2
[2018-02-18 11:38] VITALS: BP 156/82; PULSE 62; RESP 18; TEMP 36.8
--- NOTE | 2018-02-18 16:29 | PCM.WC.PN ---
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 Current Visit: Yes Code(s): L97.514 - Non-pressure chronic ulcer of other part of right foot with necrosis of bone (3) Hammer toe of right foot Status: Acute Current Visit: Yes Code(s): M20.41 - Other hammer toe(s) (acquired), right foot (4) Type 2 diabetes mellitus with diabetic polyneuropathy Status: Acute Current Visit: Yes Code(s): E11.42 - Type 2 diabetes mellitus with diabetic polyneuropathy (5) Osteomyelitis Status: Chronic Current Visit: Yes Qualifiers: Osteomyelitis location: foot Laterality: right Code(s): M86.9 - Osteomyelitis, unspecified (6) PAD (peripheral artery disease) Status: Chronic Current Visit: Yes Code(s): I73.9 - Peripheral vascular disease, unspecified Type of Wound Date of Service: 02/18/18 Chief Complaint: 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 He ambulates with a cane. He wore his right surgical shoe as advised. He was seen and evaluated by infectious disease for his osteomyelitis previously. He was started on a 6 week course of Keflex and he will take these 3 times a day. It is noted he had a previous positive bone biopsy. He denies odor or redness. He denies fever, chill, nausea, vomiting or foot pain bilateral. He would like to pursue hyperbaric oxygen therapy as recommended and he completed all of his preprocedure diagnostic data and obtain medical clearance. He is following up with Dr. Menard as advised. Progress of Wound: Stable - Physical Exam Vital Signs Temp Pulse Resp BP 98.3 F 62 18 156/82 H 02/18/18 11:38 02/18/18 11:38 02/18/18 11:38 02/18/18 11:38 General: Alert, Oriented x3, Cooperative Extremities: No cyanosis, Capillary Refill Less than 3 Seconds, No Calf Tenderness - Negative Katie and Edwards sign bilateral, Diminished Peripheral Pulses, Edema - Mild right third toe Skin: Ulcer/ Wound - No purulence, no streaking, no odor, no necrosis, no acute infection. There is communication with the tissue including a bone to the dorsal right third toe and there is peripheral inflammation including faint diffuse erythema and edema Wound Measurements and Assessment - Nurse 1 - General Ulcer Measurement Start: 02/11/18 11:43 Freq: Status: Active Protocol: Activity Type Activity Date Activity User E-Sign Co-Sign Detail Recorded Client Recorded Date Recorded By Document 02/18/18 11:38 DL [id number] 02/18/18 11:41 DL 02/18/18 11:38 Wound Center Nurse 1 [Ulcer Assessment] #2 RIGHT 3RD TOE- DORSAL ASPECT -Current Size (cm) - Length 6 -Current Size (cm) - Width 0.7 -Current Size (cm) - Depth 0.4 -Total Square Cm 4.2 -Photo Taken No -Exudate Amt Small (1-33%) -Exudate Type Serosanguineous -Wound Margin Distinct, Outline Attached -Granulation Amt Medium (34-66%) -Granulation Quality Red -Necrosis Amt Medium (34-66%) -Necrotic Tissue Type Adherent Slough -Texture (Edelmira-wound Skin Appearance) Localized Edema -Moisture (Edelmira-wound Skin Appearance No Abnormality ) -Color (Edelmira-wound Skin Appearance) Erythema Rubor -Temperature (Edelmira-wound Skin No Abnormality Appearance) (Pt Warm) -Tenderness on Palpation (Edelmira-wound No Skin Appearance) -Ulcer Cleansing Wound Cleanser -Foul Odor after Cleansing No -Anesthetic Used 4% Lidocaine Solution - Nurse 2 - General Ulcer CM Notes Start: 02/11/18 11:43 Freq: Status: Active Protocol: Activity Type Activity Date Activity User E-Sign Co-Sign Detail Recorded Client Recorded Date Recorded By Document 02/18/18 12:17 TM [id number] 02/18/18 12:18 02/18/18 12:17 Wound Center Nurse 2 [Procedure/Treatment] -Time 12:17 -Correct Patient Yes -Correct Side, Site, Position Yes -Correct Procedure Yes -Procedure Performed Yes -Type of Procedure Debridement -Clinical Debridement Subcutaneous -Post Debridement Size (cm) - Length 0.7 -Post Debridement Size (cm) - Width 0.8 -Post Debridement Size (cm) - Depth 0.4 -Total Square Cm 0.56 -Wound/Ulcer Outcome Not Healed -Ulcer Cleansing Rinsed/ Irrigated with Saline -Foul Odor after Cleansing No -Bioengineered Tissue No -Topical Lidocaine (%) 4 -Bleeding Controlled with Pressure -Treatment Response Procedure Tolerated Well [See Physician Procedure note for Specifics] Pain Scale: 0-10 Numeric [Pain] -Is Patient Pain Free? Yes Musculoskeletal: No Tenderness to Palpation of Joints or Extremities, Muscle Wasting Neurological: - - Lack of epicritic sensation light touch right lower extremity Psych/Mental Status: Normal Affect, Appropriate Debridement Note Post-Debridement Measurements/Treatment WC - Nurse 2 - General Ulcer CM Notes Start: 02/11/18 11:43 Freq: Status: Active Protocol: Activity Type Activity Date Activity User E-Sign Co-Sign Detail Recorded Client Recorded Date Recorded By Document 02/11/18 12:01 TM [id number] 02/11/18 12:09 TM Document 02/12/18 18:13 TM [id number] 02/12/18 18:20 TM Document 02/18/18 12:17 TM [id number] 02/18/18 12:18 TM 02/11/18 02/12/18 02/18/18 12:01 18:13 12:17 Wound Center Nurse 2 #2 RIGHT 3RD TOE- DORSAL ASPECT -Time 12:08 12:17 -Correct Patient Yes Yes -Correct Side, Site, Position Yes Yes -Correct Procedure Yes Yes -Procedure Performed Yes Yes -Type of Procedure Debridement Debridement -Clinical Debridement Subcutaneous Subcutaneous -Post Debridement Size (cm) - Length 0.6 0.7 -Post Debridement Size (cm) - Width 0.9 0.8 -Post Debridement Size (cm) - Depth 0.3 0.4 -Total Square Cm 0.54 0.56 -Wound/Ulcer Outcome Not Healed Not Healed -Ulcer Cleansing Rinsed/ Rinsed/ Irrigated with Irrigated with Saline Saline -Foul Odor after Cleansing No No -Bioengineered Tissue No No -Topical Lidocaine (%) 4 4 -Bleeding Controlled with Pressure Pressure -Other HBO C/S ONLY NO DEBRIDEMENT -Treatment Response Procedure Procedure Tolerated Well Tolerated Well Pain Scale: 0-10 Numeric Is Patient Pain Free? 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 Bilateral hammertoes. Right hallux ulcer, healed. Left toe ulcer (5th) - healed. Lower extremity edema. Peripheral vascular disease. delayed healing. Malnutrition suspected. Diabetes with neuropathy Plan: I reviewed and discussed the case today. Subcutaneous excisional debridement was performed as noted in the nursing panel to the right third toe. Offloading measures are to be implemented with bilateral surgical shoes. It is okay to wear protective supportive well fitted shoe in the left lower extremity. To change the dressings daily with kobe. Given that the patient's x-ray confirms the suspicion of osteomyelitis a bone biopsy was sent to microbiology and pathology which confirmed this diagnosis. The pathology report demonstrated acute osteomyelitis the microbiology specimen grew out strep bacteria. His labs are reviewed with white blood cell count of 6.7, sedimentation rate of 16, C-reactive protein less than 2.9, prealbumin of 23.3. Infectious disease is on consultation. He will complete a 6 week course of Keflex with routine serial labs. additionally, he is a candidate for hyperbaric oxygen therapy in the near future. His ejection fraction is 55-60% and cardiac clearance was obtained.After full discussion he is amenable to proceed with the hyperbaric oxygen therapy clearance and treatment sessions anticipated at at least 40 sessions. He was cleared medically to proceed and is waiting to get scheduled for his sessions. The indications, planned intervention, daily time commitment, anticipated healing time and management were discussed in detail with the patient he understands and I answered his questions. The patient has been advised to optimize his nutrition. He has also been advised to optimize his glycemic control. The patient has yet to undergo a noninvasive lower extremity arterial study. 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 To continue follow-up with Dr. Menard as advised; intervention is planned. Patient will return in 1 week for reassessment or call sooner if questions or concerns.
[2018-02-25 11:50] VITALS: BP 147/82; PULSE 64; RESP 18; TEMP 35.4
--- NOTE | 2018-02-25 13:48 | PCM.WC.PN ---
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 Current Visit: Yes Code(s): L97.514 - Non-pressure chronic ulcer of other part of right foot with necrosis of bone (2) Hammer toe of right foot Status: Chronic Current Visit: Yes Code(s): M20.41 - Other hammer toe(s) (acquired), right foot (3) Type 2 diabetes mellitus with diabetic polyneuropathy Status: Chronic Current Visit: Yes Code(s): E11.42 - Type 2 diabetes mellitus with diabetic polyneuropathy (4) Osteomyelitis Status: Chronic Current Visit: Yes Qualifiers: Osteomyelitis location: foot Laterality: right Code(s): M86.9 - Osteomyelitis, unspecified (5) PAD (peripheral artery disease) Status: Chronic Current Visit: Yes Code(s): I73.9 - Peripheral vascular disease, unspecified (6) 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 He ambulates with a cane. He wore his right surgical shoe as advised. He was seen and evaluated by infectious disease for his osteomyelitis previously. He was started on a 6 week course of Keflex and he will take these 3 times a day. It is noted he had a previous positive bone biopsy. He denies odor or redness. He denies fever, chill, nausea, vomiting or foot pain bilateral. He would like to pursue hyperbaric oxygen therapy as recommended and he completed all of his preprocedure diagnostic data and obtain medical clearance. He is following up with Dr. Menard as advised. He is scheduled for stent placement next week to the right lower extremity. His insurance approval for HBO is still pending. Progress of Wound: Improving - Physical Exam Vital Signs Temp Pulse Resp BP 95.7 F L 64 18 147/82 H 02/25/18 11:50 02/25/18 11:50 02/25/18 11:50 02/25/18 11:50 General: Alert, Oriented x3, Cooperative Extremities: No cyanosis, Capillary Refill Less than 3 Seconds, No Calf Tenderness, Diminished Peripheral Pulses, Edema, - - Subtle dorsal toe contraction right foot less than Skin: Ulcer/ Wound - No purulence, no erythema, streaking, no odor, no infection, no exposed bone or tendon or eschar today. There is some improved granulation tissue noted in the wound bed. There is resolved edema and inflammation periwound Wound Measurements and Assessment WC - Nurse 1 - General Ulcer Measurement Start: 02/11/18 11:43 Freq: Status: Active Protocol: Activity Type Activity Date Activity User E-Sign Co-Sign Detail Recorded Client Recorded Date Recorded By Document 02/25/18 11:50 TN [id number] 02/25/18 11:53 TN 02/25/18 11:50 Wound Center Nurse 1 [Ulcer Assessment] #2 RIGHT 3RD TOE- DORSAL ASPECT -Combined with other wound No -Current Size (cm) - Length 0.5 -Current Size (cm) - Width 0.8 -Current Size (cm) - Depth 0.3 -Total Square Cm 0.40 -Date of Last Picture (Recall this 02/25/18 field) -Photo Taken Yes -Epithelialization None Present -Tunneling No -Undermining/Tunneling No -Circular Undermining No -Classification - Thickness Full Thickness without Exposed Support Structure -Change in Wound Grade/Stage No Query Text:If change please identify the Stage/Grade in the comment (ie. S2 G3) -Exudate Amt Small (1-33%) -Exudate Type Serous -Wound Margin Flat & Intact -Granulation Amt Small (1-33%) -Granulation Quality Kempner -Slough/Fibrin Yes -Necrosis Amt Medium (34-66%) -Necrotic Tissue Type Adherent Slough -Structure Exposed None/Limited to Skin Breakdown -Texture (Edelmira-wound Skin Appearance) Assessed Localized Edema -Moisture (Edelmira-wound Skin Appearance No Abnormality ) Assessed -Color (Edelmira-wound Skin Appearance) Assessed Erythema -Temperature (Edelmira-wound Skin No Abnormality Appearance) (Pt Warm) -Tenderness on Palpation (Edelmira-wound No Skin Appearance) -Ulcer Cleansing Rinsed/ Irrigated with Saline -Foul Odor after Cleansing No -Anesthetic Used 4% Lidocaine Solution [Edema Assessment] -Lower Limb Edema Present No WC - Nurse 2 - General Ulcer CM Notes Start: 02/11/18 11:43 Freq: Status: Active Protocol: Activity Type Activity Date Activity User E-Sign Co-Sign Detail Recorded Client Recorded Date Recorded By Document 02/25/18 12:17 [id number] 02/25/18 12:20 02/25/18 12:17 Wound Center Nurse 2 [Procedure/Treatment] #2 RIGHT 3RD TOE- DORSAL ASPECT -Time 12:18 -Correct Patient Yes -Correct Side, Site, Position Yes -Correct Procedure Yes -Procedure Performed Yes -Type of Procedure Debridement -Clinical Debridement Subcutaneous -Post Debridement Size (cm) - Length 0.6 -Post Debridement Size (cm) - Width 0.9 -Post Debridement Size (cm) - Depth 0.3 -Total Square Cm 0.54 -Wound/Ulcer Outcome Not Healed -Ulcer Cleansing Rinsed/ Irrigated with Saline -Foul Odor after Cleansing No -Bioengineered Tissue No -Topical Lidocaine (%) 4 -Bleeding Controlled with Pressure -Treatment Response Procedure Tolerated Well [See Physician Procedure note for Specifics] Pain Scale: 0-10 Numeric [Pain] -Is Patient Pain Free? Yes Musculoskeletal: No Tenderness to Palpation of Joints or Extremities, Muscle Wasting Neurological: - - Lack of epicritic sensation light touch right lower extremity Psych/Mental Status: Normal Affect, Appropriate Debridement Note Post-Debridement Measurements/Treatment WC - Nurse 2 - General Ulcer CM Notes Start: 02/11/18 11:43 Freq: Status: Active Protocol: Activity Type Activity Date Activity User E-Sign Co-Sign Detail Recorded Client Recorded Date Recorded By Document 02/11/18 12:01 TM [id number] 02/11/18 12:09 TM Document 02/12/18 18:13 [id number] 02/12/18 18:20 TM Document 02/18/18 12:17 TM [id number] 02/18/18 12:18 TM Document 02/25/18 12:17 TM [id number] 02/25/18 12:20 TM 02/11/18 02/12/18 02/18/18 12:01 18:13 12:17 Wound Center Nurse 2 #2 RIGHT 3RD TOE- DORSAL ASPECT -Time 12:08 12:17 -Correct Patient Yes Yes -Correct Side, Site, Position Yes Yes -Correct Procedure Yes Yes -Procedure Performed Yes Yes -Type of Procedure Debridement Debridement -Clinical Debridement Subcutaneous Subcutaneous -Post Debridement Size (cm) - Length 0.6 0.7 -Post Debridement Size (cm) - Width 0.9 0.8 -Post Debridement Size (cm) - Depth 0.3 0.4 -Total Square Cm 0.54 0.56 -Wound/Ulcer Outcome Not Healed Not Healed -Ulcer Cleansing Rinsed/ Rinsed/ Irrigated with Irrigated with Saline Saline -Foul Odor after Cleansing No No -Bioengineered Tissue No No -Topical Lidocaine (%) 4 4 -Bleeding Controlled with Pressure Pressure -Other HBO C/S ONLY NO DEBRIDEMENT -Treatment Response Procedure Procedure Tolerated Well Tolerated Well Pain Scale: 0-10 Numeric Is Patient Pain Free? Yes Yes 02/25/18 12:17 Wound Center Nurse 2 #2 RIGHT 3RD TOE- DORSAL ASPECT -Time 12:18 -Correct Patient Yes -Correct Side, Site, Position Yes -Correct Procedure Yes -Procedure Performed Yes -Type of Procedure Debridement -Clinical Debridement Subcutaneous -Post Debridement Size (cm) - Length 0.6 -Post Debridement Size (cm) - Width 0.9 -Post Debridement Size (cm) - Depth 0.3 -Total Square Cm 0.54 -Wound/Ulcer Outcome Not Healed -Ulcer Cleansing Rinsed/ Irrigated with Saline -Foul Odor after Cleansing No -Bioengineered Tissue No -Topical Lidocaine (%) 4 -Bleeding Controlled with Pressure -Other -Treatment Response Procedure Tolerated Well Pain Scale: 0-10 Numeric Is Patient Pain Free? 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 Bilateral hammertoes. Right hallux ulcer, healed. Left toe ulcer (5th) - healed. Lower extremity edema. Peripheral vascular disease. delayed healing. Malnutrition suspected. Diabetes with neuropathy Plan: I reviewed and discussed the case today. Subcutaneous excisional debridement was performed as noted in the nursing panel to the right third toe. Offloading measures are to be implemented with right lower extremity surgical shoe. It is okay to wear protective supportive well fitted shoe in the left lower extremity. To change the dressings daily with kobe. Given that the patient's x-ray confirms the suspicion of osteomyelitis a bone biopsy was sent to microbiology and pathology which confirmed this diagnosis. The pathology report demonstrated acute osteomyelitis the microbiology specimen grew out strep bacteria. His labs are reviewed with white blood cell count of 6.7, sedimentation rate of 16, C-reactive protein less than 2.9, prealbumin of 23.3. Infectious disease is on consultation. He will complete a 6 week course of Keflex with routine serial labs. additionally, he is a candidate for hyperbaric oxygen therapy in the near future. His ejection fraction is 55-60% and cardiac clearance was obtained.After full discussion he is amenable to proceed with the hyperbaric oxygen therapy clearance and treatment sessions anticipated at at least 40 sessions. He was cleared medically to proceed and is waiting to get scheduled for his sessions once his insurance prior authorization is completed. The indications, planned intervention, daily time commitment, anticipated healing time and management were discussed in detail with the patient he understands and I answered his questions. The patient has been advised to optimize his nutrition. He has also been advised to optimize his glycemic control. The patient has yet to undergo a noninvasive lower extremity arterial study. 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 To continue follow-up with Dr. Menard as advised; intervention is planned for this upcoming week for stent placement. Patient will return in 1 week for reassessment or call sooner if questions or concerns.
[2018-03-04 10:37] VITALS: BP 142/69; PULSE 63; RESP 18; TEMP 36
--- NOTE | 2018-03-04 12:18 | PCM.WC.PN ---
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 Code(s): L97.514 - Non-pressure chronic ulcer of other part of right foot with necrosis of bone (2) Hammer toe of right foot Status: Chronic Code(s): M20.41 - Other hammer toe(s) (acquired), right foot (3) Type 2 diabetes mellitus with diabetic polyneuropathy Status: Chronic Code(s): E11.42 - Type 2 diabetes mellitus with diabetic polyneuropathy (4) Osteomyelitis Status: Chronic Qualifiers: Osteomyelitis location: foot Laterality: right Code(s): M86.9 - Osteomyelitis, unspecified (5) PAD (peripheral artery disease) Status: Chronic Code(s): I73.9 - Peripheral vascular disease, unspecified (6) Ulcer of right foot with fat layer exposed Status: Chronic Code(s): L97.512 - Non-pressure chronic ulcer of other part of right foot with fat layer exposed Type of Wound Date of Service: 03/07/18 Chief Complaint: 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 He ambulates with a cane. He wore his right surgical shoe as advised. He was seen and evaluated by infectious disease for his osteomyelitis previously. He was started on a 6 week course of Keflex and he will take these 3 times a day. It is noted he had a previous positive bone biopsy. He denies odor or redness. He denies fever, chill, nausea, vomiting or foot pain bilateral. He would like to pursue hyperbaric oxygen therapy as recommended and he completed all of his preprocedure diagnostic data and obtain medical clearance. He is following up with Dr. Menard as advised. He is scheduled for stent placement next week to the right lower extremity. His insurance approval for HBO is still pending. Progress of Wound: Improving - Physical Exam Vital Signs Temp Pulse Resp BP 96.8 F L 63 18 142/69 H 03/04/18 10:37 03/04/18 10:37 03/04/18 10:37 03/04/18 10:37 General: Alert, Oriented x3, Cooperative Extremities: No cyanosis, Capillary Refill Less than 3 Seconds, No Calf Tenderness - Negative Katie and Edwards sign, Diminished Peripheral Pulses, Edema - Decreased to toe with wound Skin: Ulcer/ Wound - No purulence, no erythema, streaking, odor, no acute signs of infection. The peripheral skin is atrophic and hairless, - - No longer any exposed capsule tendon or bone is noted. There is no eschar. The peripheral wound skin is not dusky Wound Measurements and Assessment WC - Nurse 1 - General Ulcer Measurement Start: 02/11/18 11:43 Freq: Status: Active Protocol: Activity Type Activity Date Activity User E-Sign Co-Sign Detail Recorded Client Recorded Date Recorded By Document 03/04/18 10:37 DL [id number] 03/04/18 10:41 DL 03/04/18 10:37 Wound Center Nurse 1 [Ulcer Assessment] #2 RIGHT 3RD TOE- DORSAL ASPECT -Current Size (cm) - Length 0.6 -Current Size (cm) - Width 0.7 -Current Size (cm) - Depth 0.4 -Total Square Cm 0.42 -Photo Taken No -Exudate Amt Small (1-33%) -Exudate Type Serosanguineous -Wound Margin Distinct, Outline Attached -Granulation Amt Small (1-33%) -Granulation Quality [place] -Necrosis Amt Small (1-33%) -Necrotic Tissue Type Adherent Slough -Structure Exposed Bone -Texture ([place]-wound Skin Appearance) Localized Edema Scarring -Moisture ([place]-wound Skin Appearance No Abnormality ) -Color ([place]-wound Skin Appearance) No Abnormality Erythema Rubor -Temperature ([place]-wound Skin No Abnormality Appearance) (Pt Warm) -Ulcer Cleansing Wound Cleanser -Foul Odor after Cleansing No -Anesthetic Used 4% Lidocaine Solution - Nurse 2 - General Ulcer CM Notes Start: 02/11/18 11:43 Freq: Status: Active Protocol: Activity Type Activity Date Activity User E-Sign Co-Sign Detail Recorded Client Recorded Date Recorded By Document 03/04/18 11:06 [email or web address] [id number] 03/04/18 11:07 03/04/18 11:06 Wound Center Nurse 2 [Procedure/Treatment] -Time 11:06 -Correct Patient Yes -Correct Side, Site, Position Yes -Correct Procedure Yes -Procedure Performed Yes -Type of Procedure Debridement -Clinical Debridement Subcutaneous -Post Debridement Size (cm) - Length 0.7 -Post Debridement Size (cm) - Width 0.7 -Post Debridement Size (cm) - Depth 0.4 -Total Square Cm 0.49 -Wound/Ulcer Outcome Not Healed -Ulcer Cleansing Rinsed/ Irrigated with Saline -Foul Odor after Cleansing No -Bioengineered Tissue No -Bleeding Controlled with Pressure -Treatment Response Procedure Tolerated Well [See Physician Procedure note for Specifics] Pain Scale: 0-10 Numeric [Pain] -Is Patient Pain Free? Yes Musculoskeletal: No Tenderness to Palpation of Joints or Extremities, Muscle Wasting, - - Compartments of foot remain soft on palpation Neurological: - - Lack of epicritic sensation light touch Psych/Mental Status: Normal Affect, Appropriate Debridement Note Post-Debridement Measurements/Treatment WC - Nurse 2 - General Ulcer CM Notes Start: 02/11/18 11:43 Freq: Status: Active Protocol: Activity Type Activity Date Activity User E-Sign Co-Sign Detail Recorded Client Recorded Date Recorded By Document 02/11/18 12:01 TM [id number] 02/11/18 12:09 TM Document 02/12/18 18:13 [email or web address] [id number] 02/12/18 18:20 TM Document 02/18/18 12:17 TM [id number] 02/18/18 12:18 TM Document 02/25/18 12:17 [id number] 02/25/18 12:20 TM Document 03/04/18 11:06 [id number] 03/04/18 11:07 02/11/18 02/12/18 02/18/18 12:01 18:13 12:17 Wound Center Nurse 2 #2 RIGHT 3RD TOE- DORSAL ASPECT -Time 12:08 12:17 -Correct Patient Yes Yes -Correct Side, Site, Position Yes Yes -Correct Procedure Yes Yes -Procedure Performed Yes Yes -Type of Procedure Debridement Debridement -Clinical Debridement Subcutaneous Subcutaneous -Post Debridement Size (cm) - Length 0.6 0.7 -Post Debridement Size (cm) - Width 0.9 0.8 -Post Debridement Size (cm) - Depth 0.3 0.4 -Total Square Cm 0.54 0.56 -Wound/Ulcer Outcome Not Healed Not Healed -Ulcer Cleansing Rinsed/ Rinsed/ Irrigated with Irrigated with Saline Saline -Foul Odor after Cleansing No No -Bioengineered Tissue No No -Topical Lidocaine (%) 4 4 -Bleeding Controlled with Pressure Pressure -Other HBO C/S ONLY NO DEBRIDEMENT -Treatment Response Procedure Procedure Tolerated Well Tolerated Well Pain Scale: 0-10 Numeric Is Patient Pain Free? Yes Yes 02/25/18 03/04/18 12:17 11:06 Wound Center Nurse 2 #2 RIGHT 3RD TOE- DORSAL ASPECT -Time 12:18 11:06 -Correct Patient Yes Yes -Correct Side, Site, Position Yes Yes -Correct Procedure Yes Yes -Procedure Performed Yes Yes -Type of Procedure Debridement Debridement -Clinical Debridement Subcutaneous Subcutaneous -Post Debridement Size (cm) - Length 0.6 0.7 -Post Debridement Size (cm) - Width 0.9 0.7 -Post Debridement Size (cm) - Depth 0.3 0.4 -Total Square Cm 0.54 0.49 -Wound/Ulcer Outcome Not Healed Not Healed -Ulcer Cleansing Rinsed/ Rinsed/ Irrigated with Irrigated with Saline Saline -Foul Odor after Cleansing No No -Bioengineered Tissue No No -Topical Lidocaine (%) 4 -Bleeding Controlled with Pressure Pressure -Other -Treatment Response Procedure Procedure Tolerated Well Tolerated Well Pain Scale: 0-10 Numeric Is Patient Pain Free? Yes Yes Wound debrided: dorsal toe Laterality: Right Wound Grade/Stage: grade 3 Type of Debridement: Excisional debridement Anesthesia Used: 4% Lidocaine Solution Depth: in the subcutaneous layer Percentage of wound debrided: 100 Instrument Used: #15 blade Tissue Removed: fibrous, devitalized subcutaneous, biofilm, slough Severity: Fat Layer Exposed Amount of bleeding with debridement: Mild Bleeding Controlled with: Pressure Patient tolerated procedure well Assessment/Plan Assessment: Right third toe ulcer with previous bone exposed and osteomyelitis- bowie grade 3. Bilateral hammertoes. Right hallux ulcer, healed. Left toe ulcer (5th) - healed. Lower extremity edema. Peripheral vascular disease. delayed healing. Malnutrition suspected. Diabetes with neuropathy Plan: I reviewed and discussed the case today. Subcutaneous excisional debridement was performed as noted in the nursing panel to the right third toe. Offloading measures are to be implemented with right lower extremity surgical shoe. It is okay to wear protective supportive well fitted shoe in the left lower extremity. To change the dressings daily with kobe. Given that the patient's x-ray confirms the suspicion of osteomyelitis a bone biopsy was sent to microbiology and pathology which confirmed this diagnosis. The pathology report demonstrated acute osteomyelitis the microbiology specimen grew out strep bacteria. His labs are reviewed with white blood cell count of 6.7, sedimentation rate of 16, C-reactive protein less than 2.9, prealbumin of 23.3. Infectious disease is on consultation. He will complete a 6 week course of Keflex with routine serial labs. additionally, he is a candidate for hyperbaric oxygen therapy in the near future. His ejection fraction is 55-60% and cardiac clearance was obtained.After full discussion he is amenable to proceed with the hyperbaric oxygen therapy clearance and treatment sessions anticipated at at least 40 sessions. He was cleared medically to proceed and is waiting to get scheduled for his sessions once his insurance prior authorization is completed. The indications, planned intervention, daily time commitment, anticipated healing time and management were discussed in detail with the patient he understands and I answered his questions. The patient has been advised to optimize his nutrition. He has also been advised to optimize his glycemic control. The patient has yet to undergo a noninvasive lower extremity arterial study. 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 To continue follow-up with Dr. Menard as advised; intervention is planned for this upcoming week for stent placement. Patient will return in 1 week for reassessment or call sooner if questions or concerns.
== END 2018-03-06 23:59 ==
LOC: WC 10:15
PROVIDERS: Family Provider Family Medicine; PCP Family Medicine; Visit Provider Podiatrist
DX: E11.621 Type 2 diabetes mellitus with foot ulcer (principal); M20.41 Other hammer toe(s) (acquired), right foot; E11.42 Type 2 diabetes mellitus with diabetic polyneuropathy; M86.671 Other chronic osteomyelitis, right ankle and foot; L97.512 Non-pressure chronic ulcer of other part of right foot with fat layer exposed; I77.9 Disorder of arteries and arterioles, unspecified; E11.22 Type 2 diabetes mellitus with diabetic chronic kidney disease; E78.5 Hyperlipidemia, unspecified; I12.9 Hypertensive chronic kidney disease with stage 1 through stage 4 chronic kidney disease, or unspecified chronic kidney disease; E11.51 Type 2 diabetes mellitus with diabetic peripheral angiopathy without gangrene; N18.3 Chronic kidney disease, stage 3 (moderate); Z87.891 Personal history of nicotine dependence
CPT/HCPCS: 11042; 99212; G0463

== ENCOUNTER 2018-03-25 11:30 | Outpatient (RCR) | payer MEDICARE, SELFPAY ==
[2018-03-07 01:06] VITALS: BP 142/69; PULSE 63; RESP 18; TEMP 36
[2018-03-11 10:22] VITALS: BP 145/88; PULSE 67; RESP 18; TEMP 35.9
--- NOTE | 2018-03-11 11:31 | PCM.WC.PN ---
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 Current Visit: Yes Code(s): L97.514 - Non-pressure chronic ulcer of other part of right foot with necrosis of bone (3) Type 2 diabetes mellitus with diabetic polyneuropathy Status: Chronic Current Visit: Yes Code(s): E11.42 - Type 2 diabetes mellitus with diabetic polyneuropathy (4) Chronic ulcer of left foot with fat layer exposed Status: Resolved Current Visit: Yes Code(s): L97.522 - Non-pressure chronic ulcer of other part of left foot with fat layer exposed (5) Osteomyelitis Status: Chronic Current Visit: Yes Code(s): M86.9 - Osteomyelitis, unspecified (6) Other specified peripheral vascular diseases Status: Chronic Current Visit: Yes Code(s): I73.89 - Other specified peripheral vascular diseases Type of Wound Date of Service: 03/11/18 Chief Complaint: 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 He ambulates with a cane. He wore his right surgical shoe as advised. He was seen and evaluated by infectious disease for his osteomyelitis previously. Completed a course of antibiotics and is doing well. It is noted he had a previous positive bone biopsy consistent with osteomyelitis. He denies odor or redness. He denies fever, chill, nausea, vomiting or foot pain bilateral. He would like to pursue hyperbaric oxygen therapy as recommended and he completed all of his preprocedure diagnostic data and obtain medical clearance. He is following up with Dr. Menard as advised. His insurance company will be called again today to see if approval has been obtained. He had stents placed to the right lower extremity yesterday with Dr. Menard in which reperfusion to 2 of the 3 major arteries were improved. Progress of Wound: stable - Physical Exam Vital Signs Temp Pulse Resp BP 96.6 F L 67 18 145/88 H 03/11/18 10:22 03/11/18 10:03/11/18 10:03/11/18 10:22 General: Alert, Oriented x3, Cooperative Extremities: No cyanosis, Capillary Refill Less than 3 Seconds, No Calf Tenderness - Negative Katie and Edwards right, Diminished Peripheral Pulses Skin: Ulcer/ Wound - No purulence, erythema, streaking, no odor, no acute signs of infection. No necrosis of bony exposed in the wound. His peripheral skin is atrophic and hairless Wound Measurements and Assessment WC - Nurse 1 - General Ulcer Measurement Start: 03/11/18 10:22 Freq: Status: Active Protocol: Activity Type Activity Date Activity User E-Sign Co-Sign Detail Recorded Client Recorded Date Recorded By Document 03/11/18 10:22 [id number] 03/11/18 10:25 03/11/18 10:22 Wound Center Nurse 1 [Ulcer Assessment] #2 RIGHT 3RD TOE- DORSAL ASPECT -Combined with other wound No -Current Size (cm) - Length 0.4 -Current Size (cm) - Width 0.6 -Current Size (cm) - Depth 0.3 -Total Square Cm 0.24 -Photo Taken No -Epithelialization None Present -Tunneling No -Undermining/Tunneling No -Circular Undermining No -Exudate Amt Small (1-33%) -Exudate Type Serous -Wound Margin Distinct, Outline Attached -Granulation Amt Small (1-33%) -Granulation Quality [place] -Necrosis Amt Large (67-100%) -Necrotic Tissue Type Adherent Slough -Structure Exposed N/A -Texture ([place]-wound Skin Appearance) Scarring -Moisture ([place]-wound Skin Appearance Assessed ) -Color ([place]-wound Skin Appearance) Erythema -Temperature ([place]-wound Skin No Abnormality Appearance) (Pt Warm) -Tenderness on Palpation ([place]-wound No Skin Appearance) -Ulcer Cleansing Rinsed/ Irrigated with Saline -Foul Odor after Cleansing No -Anesthetic Used 4% Lidocaine Solution [Edema Assessment] -Lower Limb Edema Present Yes -Right Calf (cm) 42.1 -Right Ankle (cm) 28.4 - Nurse 2 - General Ulcer CM Notes Start: 03/11/18 10:22 Freq: Status: Active Protocol: Activity Type Activity Date Activity User E-Sign Co-Sign Detail Recorded Client Recorded Date Recorded By Document 03/11/18 10:48 [id number] 03/11/18 10:50 03/11/18 10:48 Wound Center Nurse 2 [Procedure/Treatment] #2 RIGHT 3RD TOE- DORSAL ASPECT -Time 10:49 -Correct Patient Yes -Correct Side, Site, Position Yes -Correct Procedure Yes -Procedure Performed Yes -Type of Procedure Debridement -Clinical Debridement Subcutaneous -Post Debridement Size (cm) - Length 0.5 -Post Debridement Size (cm) - Width 0.7 -Post Debridement Size (cm) - Depth 0.3 -Total Square Cm 0.35 -Wound/Ulcer Outcome Not Healed -Ulcer Cleansing Rinsed/ Irrigated with Saline -Foul Odor after Cleansing No -Bioengineered Tissue No -Topical Lidocaine (%) 4 -Bleeding Controlled with Pressure -Treatment Response Procedure Tolerated Well [See Physician Procedure note for Specifics] Pain Scale: 0-10 Numeric [Pain] -Is Patient Pain Free? Yes Musculoskeletal: No Tenderness to Palpation of Joints or Extremities, Muscle Wasting, - - Subtle dorsal contraction toe right Neurological: - - Lack of epicritic sensation light touch Psych/Mental Status: Normal Affect, Appropriate Debridement Note Post-Debridement Measurements/Treatment WC - Nurse 2 - General Ulcer CM Notes Start: 03/11/18 10:22 Freq: Status: Active Protocol: Activity Type Activity Date Activity User E-Sign Co-Sign Detail Recorded Client Recorded Date Recorded By Document 03/11/18 10:48 [id number] 03/11/18 10:50 03/11/18 10:48 Wound Center Nurse 2 #2 RIGHT 3RD TOE- DORSAL ASPECT -Time 10:49 -Correct Patient Yes -Correct Side, Site, Position Yes -Correct Procedure Yes -Procedure Performed Yes -Type of Procedure Debridement -Clinical Debridement Subcutaneous -Post Debridement Size (cm) - Length 0.5 -Post Debridement Size (cm) - Width 0.7 -Post Debridement Size (cm) - Depth 0.3 -Total Square Cm 0.35 -Wound/Ulcer Outcome Not Healed -Ulcer Cleansing Rinsed/ Irrigated with Saline -Foul Odor after Cleansing No -Bioengineered Tissue No -Topical Lidocaine (%) 4 -Bleeding Controlled with Pressure -Treatment Response Procedure Tolerated Well Pain Scale: 0-10 Numeric Is Patient Pain Free? Yes Wound debrided: dorsal third toe Laterality: Right Wound Grade/Stage: grade 3 Type of Debridement: Excisional debridement Anesthesia Used: 4% Lidocaine Solution Depth: in the subcutaneous layer Percentage of wound debrided: 100 Instrument Used: #15 blade Tissue Removed: fibrous, devitalized subcutaneous, biofilm, slough Severity: Fat Layer Exposed Amount of bleeding with debridement: Mild Bleeding Controlled with: Pressure Patient tolerated procedure well Assessment/Plan Active Problems Ulcer of right foot with necrosis of bone (Chronic) Hammer toe of right foot (Chronic) Type 2 diabetes mellitus with diabetic polyneuropathy (Chronic) Osteomyelitis (Chronic) Other specified peripheral vascular diseases (Chronic) Assessment: Right third toe ulcer with previous bone exposed and osteomyelitis- bowie grade 3. Bilateral hammertoes. Right hallux ulcer, healed. Left toe ulcer (5th) - healed. Lower extremity edema. Peripheral vascular disease. delayed healing. Malnutrition suspected. Diabetes with neuropathy Plan: I reviewed and discussed the case today. Subcutaneous excisional debridement was performed as noted in the nursing panel to the right third toe. Offloading measures are to be implemented with right lower extremity surgical shoe. It is okay to wear protective supportive well fitted shoe in the left lower extremity. To change the dressings daily with kobe. Given that the patient's x-ray confirms the suspicion of osteomyelitis a bone biopsy was sent to microbiology and pathology which confirmed this diagnosis. The pathology report demonstrated acute osteomyelitis the microbiology specimen grew out strep bacteria. His labs are reviewed with white blood cell count of 6.7, sedimentation rate of 16, C-reactive protein less than 2.9, prealbumin of 23.3. Infectious disease is on consultation. He will complete a 6 week course of Keflex with routine serial labs. additionally, he is a candidate for hyperbaric oxygen therapy in the near future. His ejection fraction is 55-60% and cardiac clearance was obtained.After full discussion he is amenable to proceed with the hyperbaric oxygen therapy clearance and treatment sessions anticipated at at least 40 sessions. He was cleared medically to proceed and is waiting to get scheduled for his sessions once his insurance prior authorization is completed. An additional phone call will be placed today. The indications, planned intervention, daily time commitment, anticipated healing time and management were discussed in detail with the patient he understands and I answered his questions. The patient has been advised to optimize his nutrition. He has also been advised to optimize his glycemic control. The patient has yet to undergo a noninvasive lower extremity arterial study. 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 To continue follow-up with Dr. Menard as advised; intervention is planned for this upcoming week for stent placement. Patient will return in 1 week for reassessment or call sooner if questions or concerns.
--- NOTE | 2018-03-18 14:37 | NURSING ---
This nurse spoke with pt today at 1435 in regards to HBO insurance approval, I did receive approval from [employer] insurance on 03/17/18 approval #[id number] DOS starting 03/23/18- 05/17/18 approved for 40 tx (160 units for code G0277 and 40 tx for code 87948). Pt worried about out of pocket cost. When speaking to pt it was explained that the pre-cert nurse that was spoken with through his insurance company ([employer]) was unable to tell this nurse if there would be any out of pocket expense to pt as she was unable to look up that information, this nurse was instructed to let the pt know that they are able to call their insurance member services line to acquire this information. The pt states that if there is any out of pocket pt is expected to pay, pt states I ain't taken it if I have to pay anything. This nurse encouraged him to call his [employer] member services to find out if there will be any cost and to call back with the decision to start on Friday03/23/18.
[2018-03-19 12:39] VITALS: BP 156/68; PULSE 71; RESP 16; TEMP 35.7
--- NOTE | 2018-03-20 15:02 | PCM.WC.PN ---
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 Current Visit: Yes Code(s): L97.514 - Non-pressure chronic ulcer of other part of right foot with necrosis of bone (2) Hammer toe of right foot Status: Chronic Current Visit: Yes Code(s): M20.41 - Other hammer toe(s) (acquired), right foot (3) Osteomyelitis Status: Chronic Current Visit: Yes Code(s): M86.9 - Osteomyelitis, unspecified (4) Other specified peripheral vascular diseases Status: Chronic Current Visit: Yes Code(s): I73.89 - Other specified peripheral vascular diseases (5) Type 2 diabetes mellitus with diabetic polyneuropathy Status: Chronic Current Visit: Yes Code(s): E11.42 - Type 2 diabetes mellitus with diabetic polyneuropathy Type of Wound Date of Service: 03/19/18 Chief Complaint: 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 He ambulates with a cane. He wore his right surgical shoe as advised. He was seen and evaluated by infectious disease for his osteomyelitis previously. Completed a course of antibiotics and is doing well. It is noted he had a previous positive bone biopsy consistent with osteomyelitis. He denies odor or redness. He denies fever, chill, nausea, vomiting or foot pain bilateral. He would like to pursue hyperbaric oxygen therapy as recommended and he completed all of his preprocedure diagnostic data and obtain medical clearance. He is following up with Dr. Menard as advised. His insurance company will be called again today to see if approval has been obtained. He had stents placed to the right lower extremity yesterday with Dr. Menard in which reperfusion to 2 of the 3 major arteries were improved. Progress of Wound: courtesy visit for Dr. Daugherty, wound is stable, HBO still pending at this time. - Physical Exam Vital Signs Temp Pulse Resp BP 96.2 F L 71 16 156/68 H 03/19/18 12:39 03/19/18 12:39 03/19/18 12:39 03/19/18 12:39 General: Alert, Oriented x3, Cooperative, No apparent distress HEENT: Atraumatic Lungs: Clear to auscultation Cardiovascular: Regular rate Extremities: No clubbing, No cyanosis, No edema Skin: Ulcer/ Wound - Bowie 3 Right DFU with adherant slough, probed to bone. No purulent drainage, increase in pain, no redness or streaking or other signs of acute or local infection Wound Measurements and Assessment WC - Nurse 1 - General Ulcer Measurement Start: 03/11/18 10:22 Freq: Status: Active Protocol: Activity Type Activity Date Activity User E-Sign Co-Sign Detail Recorded Client Recorded Date Recorded By Document 03/19/18 12:39 [facility] [id number] 03/19/18 12:44 [facility] 03/19/18 12:39 Wound Center Nurse 1 [Ulcer Assessment] #2 RIGHT 3RD TOE- DORSAL ASPECT -Combined with other wound No -Current Size (cm) - Length 0.3 -Current Size (cm) - Width 0.5 -Current Size (cm) - Depth 0.3 -Total Square Cm 0.15 -Photo Taken No -Epithelialization None Present -Tunneling No -Undermining/Tunneling No -Circular Undermining No -Exudate Amt Small (1-33%) -Exudate Type Serosanguineous -Wound Margin Distinct, Outline Attached -Granulation Amt Small (1-33%) -Granulation Quality Red -Slough/Fibrin Yes -Necrosis Amt Large (67-100%) -Necrotic Tissue Type Adherent Slough -Texture ([place]-wound Skin Appearance) Scarring -Moisture ([place]-wound Skin Appearance Dry/Scaly ) -Color ([place]-wound Skin Appearance) Erythema -Temperature ([place]-wound Skin No Abnormality Appearance) (Pt Warm) -Tenderness on Palpation ([place]-wound No Skin Appearance) -Ulcer Cleansing Rinsed/ Irrigated with Saline -Foul Odor after Cleansing No -Anesthetic Used 4% Lidocaine Solution WC - Nurse 2 - General Ulcer CM Notes Start: 03/11/18 10:22 Freq: Status: Active Protocol: Activity Type Activity Date Activity User E-Sign Co-Sign Detail Recorded Client Recorded Date Recorded By Document 03/19/18 13:13 [id number] 03/19/18 13:15 03/19/18 13:13 Wound Center Nurse 2 [Procedure/Treatment] -Time 13:14 -Correct Patient Yes -Correct Side, Site, Position Yes -Correct Procedure Yes -Procedure Performed Yes -Type of Procedure Debridement -Clinical Debridement Subcutaneous -Post Debridement Size (cm) - Length 1 -Post Debridement Size (cm) - Width 0.8 -Post Debridement Size (cm) - Depth 0.3 -Total Square Cm 0.8 -Wound/Ulcer Outcome Not Healed -Ulcer Cleansing Not Cleansed -Foul Odor after Cleansing No -Bioengineered Tissue No -Bleeding Controlled with Pressure -Treatment Response Procedure Tolerated Well [See Physician Procedure note for Specifics] Pain Scale: 0-10 Numeric [Pain] -Is Patient Pain Free? Yes Neurological: Neuro grossly intact Psych/Mental Status: Normal Affect, Appropriate, Alert and oriented to time, place, person, mood and affect Debridement Note Post-Debridement Measurements/Treatment WC - Nurse 2 - General Ulcer CM Notes Start: 03/11/18 10:22 Freq: Status: Active Protocol: Activity Type Activity Date Activity User E-Sign Co-Sign Detail Recorded Client Recorded Date Recorded By Document 03/11/18 10:48 [id number] 03/11/18 10:50 Document 03/19/18 13:13 [id number] 03/19/18 13:15 03/11/18 03/19/18 10:48 13:13 Wound Center Nurse 2 #2 RIGHT 3RD TOE- DORSAL ASPECT -Time 10:49 13:14 -Correct Patient Yes Yes -Correct Side, Site, Position Yes Yes -Correct Procedure Yes Yes -Procedure Performed Yes Yes -Type of Procedure Debridement Debridement -Clinical Debridement Subcutaneous Subcutaneous -Post Debridement Size (cm) - Length 0.5 1 -Post Debridement Size (cm) - Width 0.7 0.8 -Post Debridement Size (cm) - Depth 0.3 0.3 -Total Square Cm 0.35 0.8 -Wound/Ulcer Outcome Not Healed Not Healed -Ulcer Cleansing Rinsed/ Not Cleansed Irrigated with Saline -Foul Odor after Cleansing No No -Bioengineered Tissue No No -Topical Lidocaine (%) 4 -Bleeding Controlled with Pressure Pressure -Treatment Response Procedure Procedure Tolerated Well Tolerated Well Pain Scale: 0-10 Numeric Is Patient Pain Free? 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 Bilateral hammertoes. Right hallux ulcer, healed. Left toe ulcer (5th) - healed. Lower extremity edema. Peripheral vascular disease. delayed healing. Malnutrition suspected. Diabetes with neuropathy Plan: Courtesy visit for Dr. Chapman. Continue with current wound treatment plan using kobe daily. Pending HBO. Continue with offloading measures. Will follow up in 1 week or sooner at wound healing center. Monitor for signs of infection, discussed red flag symptoms that require urgent medical attention. Code Visit 111xxx-113xx: 21001 Delmi subq tissue 20 sq cm/<
--- NOTE | 2018-03-20 15:07 | PN.PCM_ITS ---
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 Current Visit: Yes Code(s): L97.514 - Non-pressure chronic ulcer of other part of right foot with necrosis of bone (2) Hammer toe of right foot Status: Chronic Current Visit: Yes Code(s): M20.41 - Other hammer toe(s) ( acquired), right foot (3) Osteomyelitis Status: Chronic Current Visit: Yes Code(s): M86.9 - Osteomyelitis, unspecified (4) Other specified peripheral vascular diseases Status: Chronic Current Visit: Yes Code(s): I73.89 - Other specified peripheral vascular diseases (5) Type 2 diabetes mellitus with diabetic polyneuropathy Status: Chronic Current Visit: Yes Code(s): E11.42 - Type 2 diabetes mellitus with diabetic polyneuropathy Type of Wound Date of Service: 03/19/18 Chief Complaint: Chronic diabetic foot ulceration of the right third toe, dorsum , with osteomyelitis, Bowie grade 3 History of Wound: This is a 77-year-old obese, diabetic male who presents with a chronic ulceration on the dorsum of his right third toe. He ambulates with a cane. He wore his right surgical shoe as advised. He was seen and evaluated by infectious disease for his osteomyelitis previously. Completed a course of antibiotics and is doing well. It is noted he had a previous positive bone biopsy consistent with osteomyelitis. He denies odor or redness. He denies fever, chill, nausea, vomiting or foot pain bilateral. He would like to pursue hyperbaric oxygen therapy as recommended and he completed all of his preprocedure diagnostic data and obtain medical clearance. He is following up with Dr. Menard as advised. His insurance company will be called again today to see if approval has been obtained. He had stents placed to the right lower extremity yesterday with Dr. Menard in which reperfusion to 2 of the 3 major arteries were improved. Progress of Wound: courtesy visit for Dr. Daugherty, wound is stable, HBO still pending at this time. - Physical Exam Vital Signs Temp Pulse Resp BP 96.2 F L 71 16 156/68 H 03/19/18 12:39 03/19/18 12:39 03/19/18 12:39 03/19/18 12:39 General: Alert, Oriented x3, Cooperative, No apparent distress HEENT: Atraumatic Lungs: Clear to auscultation Cardiovascular: Regular rate Extremities: No clubbing, No cyanosis, No edema Skin: Ulcer/ Wound - Bowie 3 Right DFU with adherant slough, probed to bone. No purulent drainage, increase in pain, no redness or streaking or other signs of acute or local infection Wound Measurements and Assessment WC - Nurse 1 - General Ulcer Measurement Start: 03/11/18 10:22 Freq: Status: Active Protocol: Activity Type Activity Date Activity User E-Sign Co-Sign Detail Recorded Client Recorded Date Recorded By Document 03/19/18 12:39 [facility] [id number] 03/19/18 12:44 [facility] 03/19/18 12:39 Wound Center Nurse 1 [Ulcer Assessment] #2 RIGHT 3RD TOE- DORSAL ASPECT -Combined with other wound No -Current Size (cm) - Length 0.3 -Current Size (cm) - Width 0.5 -Current Size (cm) - Depth 0.3 -Total Square Cm 0.15 -Photo Taken No -Epithelialization None Present -Tunneling No -Undermining/Tunneling No -Circular Undermining No -Exudate Amt Small (1-33%) -Exudate Type Serosanguineous -Wound Margin Distinct, Outline Attached -Granulation Amt Small (1-33%) -Granulation Quality Red -Slough/Fibrin Yes -Necrosis Amt Large (67-100%) -Necrotic Tissue Type Adherent Slough -Texture ([place]-wound Skin Appearance) Scarring -Moisture ([place]-wound Skin Appearance Dry/Scaly ) -Color ([place]-wound Skin Appearance) Erythema -Temperature ([place]-wound Skin No Abnormality Appearance) (Pt Warm) -Tenderness on Palpation ([place]-wound No Skin Appearance) -Ulcer Cleansing Rinsed/ Irrigated with Saline -Foul Odor after Cleansing No -Anesthetic Used 4% Lidocaine Solution WC - Nurse 2 - General Ulcer CM Notes Start: 03/11/18 10:22 Freq: Status: Active Protocol: Activity Type Activity Date Activity User E-Sign Co-Sign Detail Recorded Client Recorded Date Recorded By Document 03/19/18 13:13 [id number] 03/19/18 13:15 03/19/18 13:13 Wound Center Nurse 2 [Procedure/Treatment] -Time 13:14 -Correct Patient Yes -Correct Side, Site, Position Yes -Correct Procedure Yes -Procedure Performed Yes -Type of Procedure Debridement -Clinical Debridement Subcutaneous -Post Debridement Size (cm) - Length 1 -Post Debridement Size (cm) - Width 0.8 -Post Debridement Size (cm) - Depth 0.3 -Total Square Cm 0.8 -Wound/Ulcer Outcome Not Healed -Ulcer Cleansing Not Cleansed -Foul Odor after Cleansing No -Bioengineered Tissue No -Bleeding Controlled with Pressure -Treatment Response Procedure Tolerated Well [See Physician Procedure note for Specifics] Pain Scale: 0-10 Numeric [Pain] -Is Patient Pain Free? Yes Neurological: Neuro grossly intact Psych/Mental Status: Normal Affect, Appropriate, Alert and oriented to time, place, person, mood and affect Debridement Note Post-Debridement Measurements/Treatment WC - Nurse 2 - General Ulcer CM Notes Start: 03/11/18 10:22 Freq: Status: Active Protocol: Activity Type Activity Date Activity User E-Sign Co-Sign Detail Recorded Client Recorded Date Recorded By Document 03/11/18 10:48 [id number] 03/11/18 10:50 Document 03/19/18 13:13 [id number] 03/19/18 13:15 03/11/18 03/19/18 10:48 13:13 Wound Center Nurse 2 #2 RIGHT 3RD TOE- DORSAL ASPECT -Time 10:49 13:14 -Correct Patient Yes Yes -Correct Side, Site, Position Yes Yes -Correct Procedure Yes Yes -Procedure Performed Yes Yes -Type of Procedure Debridement Debridement -Clinical Debridement Subcutaneous Subcutaneous -Post Debridement Size (cm) - Length 0.5 1 -Post Debridement Size (cm) - Width 0.7 0.8 -Post Debridement Size (cm) - Depth 0.3 0.3 -Total Square Cm 0.35 0.8 -Wound/Ulcer Outcome Not Healed Not Healed -Ulcer Cleansing Rinsed/ Not Cleansed Irrigated with Saline -Foul Odor after Cleansing No No -Bioengineered Tissue No No -Topical Lidocaine (%) 4 -Bleeding Controlled with Pressure Pressure -Treatment Response Procedure Procedure Tolerated Well Tolerated Well Pain Scale: 0-10 Numeric Is Patient Pain Free? 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 Bilateral hammertoes. Right hallux ulcer, healed. Left toe ulcer (5th) - healed. Lower extremity edema. Peripheral vascular disease. delayed healing. Malnutrition suspected. Diabetes with neuropathy Plan: Courtesy visit for Dr. Chapman. Continue with current wound treatment plan using kobe daily. Pending HBO. Continue with offloading measures. Will follow up in 1 week or sooner at wound healing center. Monitor for signs of infection, discussed red flag symptoms that require urgent medical attention. Code Visit 111xxx-113xx: 72999 Delmi subq tissue 20 sq cm/<
[2018-03-25 11:28] VITALS: BP 151/81; PULSE 65; RESP 18; TEMP 35.8
--- NOTE | 2018-03-25 14:46 | PN.PCM_ITS ---
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 Code(s): L97.514 - Non-pressure chronic ulcer of other part of right foot with necrosis of bone (3) Type 2 diabetes mellitus with diabetic polyneuropathy Status: Chronic Code(s): E11.42 - Type 2 diabetes mellitus with diabetic polyneuropathy (4) Chronic ulcer of left foot with fat layer exposed Status: Resolved Code(s): L97.522 - Non-pressure chronic ulcer of other part of left foot with fat layer exposed (5) Osteomyelitis Status: Chronic Code(s): M86.9 - Osteomyelitis, unspecified (6) Other specified peripheral vascular diseases Status: Chronic Code(s): I73.89 - Other specified peripheral vascular diseases Type of Wound Date of Service: 03/28/18 Chief Complaint: Chronic diabetic foot ulceration of the right third toe, dorsum , with osteomyelitis, Bowie grade 3 History of Wound: This is a 77-year-old obese, diabetic male who presents with a chronic ulceration on the dorsum of his right third toe. He ambulates with a cane. He wore his right surgical shoe as advised. He was seen and evaluated by infectious disease for his osteomyelitis previously. Completed a course of antibiotics and is doing well. It is noted he had a previous positive bone biopsy consistent with osteomyelitis. He denies odor or redness. He denies fever, chill, nausea, vomiting or foot pain bilateral. He would like to pursue hyperbaric oxygen therapy as recommended and he completed all of his preprocedure diagnostic data and obtain medical clearance. The insurance prior authorization has been completed and he is ready to discuss this option again today. He is following up with Dr. Menard as advised. His insurance company will be called again today to see if approval has been obtained. He had stents placed to the right lower extremity yesterday with Dr. Menard in which reperfusion to 2 of the 3 major arteries were improved. Progress of Wound: Stable - Physical Exam Vital Signs Temp Pulse Resp BP 96.4 F L 65 18 151/81 H 03/25/18 11:28 03/25/18 11:28 03/25/18 11:28 03/25/18 11:28 General: Alert, Oriented x3, Cooperative Extremities: No cyanosis, Capillary Refill Less than 3 Seconds, No Calf Tenderness, Diminished Peripheral Pulses Skin: Ulcer/ Wound - No purulence, no erythema, streaking, odor, no infection. Peripheral skin is atrophic. There is no exposed bone today. Wound Measurements and Assessment WC - Nurse 1 - General Ulcer Measurement Start: 03/11/18 10:22 Freq: Status: Active Protocol: Activity Type Activity Date Activity User E-Sign Co-Sign Detail Recorded Client Recorded Date Recorded By Document 03/25/18 11:28 DL [id number] 03/25/18 11:33 DL 03/25/18 11:28 Wound Center Nurse 1 [Ulcer Assessment] #2 RIGHT 3RD TOE- DORSAL ASPECT -Current Size (cm) - Length 0.4 -Current Size (cm) - Width 0.7 -Current Size (cm) - Depth 0.2 -Total Square Cm 0.28 -Photo Taken No -Exudate Amt Small (1-33%) -Exudate Type Serosanguineous -Wound Margin Distinct, Outline Attached -Granulation Amt Small (1-33%) -Granulation Quality [place] -Necrosis Amt Small (1-33%) -Necrotic Tissue Type Adherent Slough -Structure Exposed N/A -Texture ([place]-wound Skin Appearance) Localized Edema Scarring -Moisture ([place]-wound Skin Appearance No Abnormality ) -Color ([place]-wound Skin Appearance) Erythema Rubor -Temperature ([place]-wound Skin No Abnormality Appearance) (Pt Warm) -Tenderness on Palpation ([place]-wound No Skin Appearance) -Ulcer Cleansing Rinsed/ Irrigated with Saline -Foul Odor after Cleansing No -Anesthetic Used 4% Lidocaine Solution WC - Nurse 2 - General Ulcer CM Notes Start: 03/11/18 10:22 Freq: Status: Active Protocol: Activity Type Activity Date Activity User E-Sign Co-Sign Detail Recorded Client Recorded Date Recorded By Document 03/25/18 11:51 ANDREA [id number] 03/25/18 11:53 ANDREA 03/25/18 11:51 Wound Center Nurse 2 [Procedure/Treatment] -Time 11:52 -Correct Patient Yes -Correct Side, Site, Position Yes -Correct Procedure Yes -Procedure Performed Yes -Type of Procedure Debridement -Clinical Debridement Subcutaneous -Post Debridement Size (cm) - Length 0.5 -Post Debridement Size (cm) - Width 0.7 -Post Debridement Size (cm) - Depth 0.2 -Total Square Cm 0.35 -Wound/Ulcer Outcome Not Healed -Ulcer Cleansing Rinsed/ Irrigated with Saline -Foul Odor after Cleansing No -Bioengineered Tissue No -Bleeding Controlled with Pressure -Treatment Response Procedure Tolerated Well [See Physician Procedure note for Specifics] Pain Scale: 0-10 Numeric [Pain] -Is Patient Pain Free? Yes Musculoskeletal: No Tenderness to Palpation of Joints or Extremities, Muscle Wasting Neurological: - - Lack of epicritic sensation light touch Psych/Mental Status: Normal Affect, Appropriate Debridement Note Post-Debridement Measurements/Treatment WC - Nurse 2 - General Ulcer CM Notes Start: 03/11/18 10:22 Freq: Status: Active Protocol: Activity Type Activity Date Activity User E-Sign Co-Sign Detail Recorded Client Recorded Date Recorded By Document 03/11/18 10:48 [id number] 03/11/18 10:50 Document 03/19/18 13:13 [id number] 03/19/18 13:15 Document 03/25/18 11:51 [id number] 03/25/18 11:53 03/11/18 03/19/18 03/25/18 10:48 13:13 11:51 Wound Center Nurse 2 #2 RIGHT 3RD TOE- DORSAL ASPECT -Time 10:49 13:14 11:52 -Correct Patient Yes Yes Yes -Correct Side, Site, Position Yes Yes Yes -Correct Procedure Yes Yes Yes -Procedure Performed Yes Yes Yes -Type of Procedure Debridement Debridement Debridement -Clinical Debridement Subcutaneous Subcutaneous Subcutaneous -Post Debridement Size (cm) - Length 0.5 1 0.5 -Post Debridement Size (cm) - Width 0.7 0.8 0.7 -Post Debridement Size (cm) - Depth 0.3 0.3 0.2 -Total Square Cm 0.35 0.8 0.35 -Wound/Ulcer Outcome Not Healed Not Healed Not Healed -Ulcer Cleansing Rinsed/ Not Cleansed Rinsed/ Irrigated with Irrigated with Saline Saline -Foul Odor after Cleansing No No No -Bioengineered Tissue No No No -Topical Lidocaine (%) 4 -Bleeding Controlled with Pressure Pressure Pressure -Treatment Response Procedure Procedure Procedure Tolerated Well Tolerated Well Tolerated Well Pain Scale: 0-10 Numeric Is Patient Pain Free? Yes Yes Yes Wound debrided: 3rd toe Laterality: Right Wound Grade/Stage: grade 3 Type of Debridement: Excisional debridement Anesthesia Used: 4% Lidocaine Solution Depth: in the subcutaneous layer Percentage of wound debrided: 100 Instrument Used: #15 blade Tissue Removed: fibrous, devitalized subcutaneous, biofilm, slough Severity: Fat Layer Exposed Amount of bleeding with debridement: Mild Bleeding Controlled with: Pressure Patient tolerated procedure well Assessment/Plan Assessment: Right third toe ulcer with previous bone exposed and osteomyelitis- bowie grade 3. Bilateral hammertoes. Right hallux ulcer, healed. Left toe ulcer (5th) - healed. Lower extremity edema. Peripheral vascular disease. delayed healing. Malnutrition suspected. Diabetes with neuropathy Plan: I reviewed and discussed the case today. Subcutaneous excisional debridement was performed as noted in the nursing panel to the right third toe. Offloading measures are to be implemented with right lower extremity surgical shoe. It is okay to wear protective supportive well fitted shoe in the left lower extremity. To change the dressings daily with kobe. Given that the patient's x-ray confirms the suspicion of osteomyelitis a bone biopsy was sent to microbiology and pathology which confirmed this diagnosis. The pathology report demonstrated acute osteomyelitis the microbiology specimen grew out strep bacteria. His labs are reviewed with white blood cell count of 6.7, sedimentation rate of 16, C-reactive protein less than 2.9, prealbumin of 23.3. Infectious disease is on consultation. He will complete a 6 week course of Keflex with routine serial labs. additionally, he is a candidate for hyperbaric oxygen therapy in the near future. His ejection fraction is 55-60% and cardiac clearance was obtained. Insurance coverage as discussed in detail today with the hyperbaric nurse and he is not able to proceed due to the uncovered cost. It is noted that he was cleared medically . I answered his questions. The patient has been advised to optimize his nutrition. He has also been advised to optimize his glycemic control. The patient has yet to undergo a noninvasive lower extremity arterial study. 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 To continue follow-up with Dr. Menard as advised; intervention is planned for this upcoming week for stent placement. Patient will return in 1 week for reassessment or call sooner if questions or concerns.
== END 2018-04-05 23:59 ==
LOC: WC 11:30
PROVIDERS: Family Provider Family Medicine; PCP Family Medicine; Visit Provider Podiatrist
DX: E11.621 Type 2 diabetes mellitus with foot ulcer (principal); E11.51 Type 2 diabetes mellitus with diabetic peripheral angiopathy without gangrene; E11.42 Type 2 diabetes mellitus with diabetic polyneuropathy; E66.9 Obesity, unspecified; Z68.41 Body mass index [BMI] 40.0-44.9, adult; Z71.3 Dietary counseling and surveillance; M86.8X7 Other osteomyelitis, ankle and foot; R60.0 Localized edema; L97.512 Non-pressure chronic ulcer of other part of right foot with fat layer exposed
CPT/HCPCS: 11042

== ENCOUNTER 2018-04-22 13:30 | Outpatient (RCR) | payer MEDICARE, SELFPAY ==
[2018-04-06 00:52] VITALS: BP 151/81; PULSE 65; RESP 18; TEMP 35.8
[2018-04-08 16:00] VITALS: BP 145/82; PULSE 67; RESP 18; TEMP 35.7
--- NOTE | 2018-04-08 17:16 | PCM.WC.PN ---
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: Chronic Code(s): L97.512 - Non-pressure chronic ulcer of other part of right foot with fat layer exposed (2) Osteomyelitis of toe of right foot Status: Chronic Code(s): M86.9 - Osteomyelitis, unspecified (3) Hammer toe of right foot Status: Chronic Code(s): M20.41 - Other hammer toe(s) (acquired), right foot (4) Type 2 diabetes mellitus with diabetic polyneuropathy Status: Chronic Code(s): E11.42 - Type 2 diabetes mellitus with diabetic polyneuropathy Type of Wound Date of Service: 04/08/18 Chief Complaint: 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 He ambulates with a cane. He wore his right surgical shoe as advised. He was seen and evaluated by infectious disease for his osteomyelitis previously. Completed a course of antibiotics and is doing well. It is noted he had a previous positive bone biopsy consistent with osteomyelitis. He denies odor or redness. He denies fever, chill, nausea, vomiting or foot pain bilateral. He refuses hyperbaric oxygen therapy at this time. He is following up with Dr. Menard as advised. His insurance company will be called again today to see if approval has been obtained. He had stents placed to the right lower extremity yesterday with Dr. Menard in which reperfusion to 2 of the 3 major arteries were improved. Progress of Wound: improving - Physical Exam Vital Signs Temp Pulse Resp BP 96.2 F L 67 18 145/82 H 04/08/18 16:00 04/08/18 16:00 04/08/18 16:00 04/08/18 16:00 General: Alert, Oriented x3, Cooperative Extremities: Capillary Refill Less than 3 Seconds, No Calf Tenderness, Diminished Peripheral Pulses, Edema Skin: Ulcer/ Wound - no purulence, no erythema ,no infection, no streaking, no bone exposed, - - adjacent skin is hairless and atrophic Wound Measurements and Assessment WC - Nurse 1 - General Ulcer Measurement Start: 04/08/18 16:00 Freq: Status: Active Protocol: Activity Type Activity Date Activity User E-Sign Co-Sign Detail Recorded Client Recorded Date Recorded By Document 04/08/18 16:00 [facility] [id number] 04/08/18 16:07 [facility] 04/08/18 16:00 Wound Center Nurse 1 [Ulcer Assessment] #2 RIGHT 3RD TOE- DORSAL ASPECT -Combined with other wound No -Current Size (cm) - Length 0.2 -Current Size (cm) - Width 0.6 -Current Size (cm) - Depth 0.3 -Total Square Cm 0.12 -Date of Last Picture (Recall this 04/08/18 field) -Photo Taken Yes -Epithelialization Small 1-33% -Tunneling No -Undermining/Tunneling No -Circular Undermining No -Exudate Amt None Present (0 %) -Wound Margin Distinct, Outline Attached -Granulation Amt Large (67-100%) -Granulation Quality [place] -Slough/Fibrin Yes -Necrosis Amt Small (1-33%) -Necrotic Tissue Type Adherent Slough -Texture ([place]-wound Skin Appearance) Scarring -Moisture ([place]-wound Skin Appearance Dry/Scaly ) -Color ([place]-wound Skin Appearance) Assessed -Temperature ([place]-wound Skin No Abnormality Appearance) (Pt Warm) -Tenderness on Palpation ([place]-wound No Skin Appearance) -Ulcer Cleansing Rinsed/ Irrigated with Saline -Foul Odor after Cleansing No -Anesthetic Used 4% Lidocaine Solution WC - Nurse 2 - General Ulcer CM Notes Start: 04/08/18 16:00 Freq: Status: Active Protocol: Activity Type Activity Date Activity User E-Sign Co-Sign Detail Recorded Client Recorded Date Recorded By Document 04/08/18 16:24 [id number] 04/08/18 16:25 04/08/18 16:24 Wound Center Nurse 2 [Procedure/Treatment] -Time 16:24 -Correct Patient Yes -Correct Side, Site, Position Yes -Correct Procedure Yes -Procedure Performed Yes -Type of Procedure Debridement -Clinical Debridement Subcutaneous -Post Debridement Size (cm) - Length 0.2 -Post Debridement Size (cm) - Width 0.5 -Post Debridement Size (cm) - Depth 0.2 -Total Square Cm 0.10 -Wound/Ulcer Outcome Not Healed -Ulcer Cleansing Rinsed/ Irrigated with Saline -Foul Odor after Cleansing No -Bioengineered Tissue No -Bleeding Controlled with Pressure -Treatment Response Procedure Tolerated Well [See Physician Procedure note for Specifics] Pain Scale: 0-10 Numeric [Pain] -Is Patient Pain Free? Yes Musculoskeletal: No Tenderness to Palpation of Joints or Extremities, Muscle Wasting, - - no pain with toe passive motion or manipulation Neurological: - - lack of epicritic sensation via light touch noted Psych/Mental Status: Normal Affect, Appropriate Debridement Note Post-Debridement Measurements/Treatment WC - Nurse 2 - General Ulcer CM Notes Start: 04/08/18 16:00 Freq: Status: Active Protocol: Activity Type Activity Date Activity User E-Sign Co-Sign Detail Recorded Client Recorded Date Recorded By Document 04/08/18 16:24 [id number] 04/08/18 16:25 04/08/18 16:24 Wound Center Nurse 2 #2 RIGHT 3RD TOE- DORSAL ASPECT -Time 16:24 -Correct Patient Yes -Correct Side, Site, Position Yes -Correct Procedure Yes -Procedure Performed Yes -Type of Procedure Debridement -Clinical Debridement Subcutaneous -Post Debridement Size (cm) - Length 0.2 -Post Debridement Size (cm) - Width 0.5 -Post Debridement Size (cm) - Depth 0.2 -Total Square Cm 0.10 -Wound/Ulcer Outcome Not Healed -Ulcer Cleansing Rinsed/ Irrigated with Saline -Foul Odor after Cleansing No -Bioengineered Tissue No -Bleeding Controlled with Pressure -Treatment Response Procedure Tolerated Well Pain Scale: 0-10 Numeric Is Patient Pain Free? Yes Wound debrided: dorsal third toe Laterality: Right Wound Grade/Stage: grade 3 Type of Debridement: Excisional debridement Anesthesia Used: 4% Lidocaine Solution Depth: in the subcutaneous layer Percentage of wound debrided: 100 Instrument Used: #15 blade Tissue Removed: fibrous, devitalized subcutaneous, biofilm, slough Severity: Fat Layer Exposed Amount of bleeding with debridement: Mild Bleeding Controlled with: Pressure Patient tolerated procedure well Assessment/Plan Assessment: Right third toe ulcer with previous bone exposed and osteomyelitis- bowie grade 3. Bilateral hammertoes. Right hallux ulcer, healed. Left toe ulcer (5th) - healed. Lower extremity edema. Peripheral vascular disease. delayed healing. Malnutrition suspected. Diabetes with neuropathy Plan: I reviewed and discussed the case today. Subcutaneous excisional debridement was performed as noted in the nursing panel to the right third toe. Offloading measures are to be implemented with right lower extremity surgical shoe. It is okay to wear protective supportive well fitted shoe in the left lower extremity. To change the dressings daily with kobe. Given that the patient's x-ray confirms the suspicion of osteomyelitis a bone biopsy was sent to microbiology and pathology which confirmed this diagnosis. The pathology report demonstrated acute osteomyelitis the microbiology specimen grew out strep bacteria. His labs are reviewed with white blood cell count of 6.7, sedimentation rate of 16, C-reactive protein less than 2.9, prealbumin of 23.3. Infectious disease is on consultation. He will complete a 6 week course of Keflex with routine serial labs. additionally, he was candidate for hyperbaric oxygen therapy and refuses at this time. His ejection fraction is 55-60% and cardiac clearance was obtained. Insurance coverage as discussed in detail today with the hyperbaric nurse and he is not able to proceed due to the uncovered cost. It is noted that he was cleared medically . I answered his questions. The patient has been advised to optimize his nutrition. He has also been advised to optimize his glycemic control. The patient has yet to undergo a noninvasive lower extremity arterial study. 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 To continue follow-up with Dr. Menard as advised; intervention is planned for this upcoming week for stent placement. Patient will return in 1 week for reassessment or call sooner if questions or concerns.
[2018-04-22 13:24] VITALS: BP 117/86; PULSE 68; RESP 16; TEMP 36.5
--- NOTE | 2018-04-22 14:31 | PCM.WC.PN ---
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: Resolved Current Visit: Yes Code(s): L97.512 - Non-pressure chronic ulcer of other part of right foot with fat layer exposed (2) Osteomyelitis of toe of right foot Status: Resolved Current Visit: Yes Code(s): M86.9 - Osteomyelitis, unspecified (3) Hammer toe of right foot Status: Chronic Current Visit: Yes Code(s): M20.41 - Other hammer toe(s) (acquired), right foot (4) Type 2 diabetes mellitus with diabetic polyneuropathy Status: Chronic Current Visit: Yes Code(s): E11.42 - Type 2 diabetes mellitus with diabetic polyneuropathy Type of Wound Date of Service: 04/22/18 Chief Complaint: 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 He ambulates with a cane. He wore his right surgical shoe as advised. He was seen and evaluated by infectious disease for his osteomyelitis previously. Completed a course of antibiotics and is doing well. It is noted he had a previous positive bone biopsy consistent with osteomyelitis. He denies odor or redness. He denies fever, chill, nausea, vomiting or foot pain bilateral. He denies drainage and thinks the site has healed. He did follow-up with Dr. Menard is happy with his progress. Progress of Wound: Healed - Physical Exam Vital Signs Temp Pulse Resp BP 97.7 F L 68 16 117/86 H 04/22/18 13:24 04/22/18 13:24 04/22/18 13:24 04/22/18 13:24 General: Alert, Oriented x3, Cooperative Extremities: No cyanosis, Capillary Refill Less than 3 Seconds, No Calf Tenderness - Negative Katie and Edwards bilateral, Diminished Peripheral Pulses, Edema Skin: Ulcer/ Wound - Full epithelialization is noted. There is no purulence, erythema, streaking, odor, infection, or exposed tissue under the skin layer. The peripheral skin is hairless and atrophic. Wound Measurements and Assessment WC - Nurse 1 - General Ulcer Measurement Start: 04/08/18 16:00 Freq: Status: Active Protocol: Activity Type Activity Date Activity User E-Sign Co-Sign Detail Recorded Client Recorded Date Recorded By Document 04/22/18 13:24 [facility] [id number] 04/22/18 13:29 [facility] 04/22/18 13:24 Wound Center Nurse 1 [Ulcer Assessment] #2 RIGHT 3RD TOE- DORSAL ASPECT -Combined with other wound No -Current Size (cm) - Length 0.1 -Current Size (cm) - Width 0.1 -Current Size (cm) - Depth 0.1 -Total Square Cm 0.01 -Photo Taken No -Epithelialization Large 67-100% -Tunneling No -Undermining/Tunneling No -Circular Undermining No -Exudate Amt None Present (0 %) -Structure Exposed N/A -Temperature ([place]-wound Skin No Abnormality Appearance) (Pt Warm) -Tenderness on Palpation ([place]-wound No Skin Appearance) -Ulcer Cleansing Rinsed/ Irrigated with Saline -Foul Odor after Cleansing No -Anesthetic Used 4% Lidocaine Solution Musculoskeletal: No Tenderness to Palpation of Joints or Extremities, Muscle Wasting Neurological: - - Lack of epicritic sensation light touch Psych/Mental Status: Normal Affect, Appropriate Debridement Note Post-Debridement Measurements/Treatment WC - Nurse 2 - General Ulcer CM Notes Start: 04/08/18 16:00 Freq: Status: Active Protocol: Activity Type Activity Date Activity User E-Sign Co-Sign Detail Recorded Client Recorded Date Recorded By Document 04/08/18 16:24 [id number] 04/08/18 16:25 04/08/18 16:24 Wound Center Nurse 2 #2 RIGHT 3RD TOE- DORSAL ASPECT -Time 16:24 -Correct Patient Yes -Correct Side, Site, Position Yes -Correct Procedure Yes -Procedure Performed Yes -Type of Procedure Debridement -Clinical Debridement Subcutaneous -Post Debridement Size (cm) - Length 0.2 -Post Debridement Size (cm) - Width 0.5 -Post Debridement Size (cm) - Depth 0.2 -Total Square Cm 0.10 -Wound/Ulcer Outcome Not Healed -Ulcer Cleansing Rinsed/ Irrigated with Saline -Foul Odor after Cleansing No -Bioengineered Tissue No -Bleeding Controlled with Pressure -Treatment Response Procedure Tolerated Well Pain Scale: 0-10 Numeric Is Patient Pain Free? Yes No debridement was completed today - The ulcer site is healed Assessment/Plan Active Problems Hammer toe of right foot (Chronic) Type 2 diabetes mellitus with diabetic polyneuropathy (Chronic) Assessment: Right third toe ulcer with previous bone exposed and osteomyelitis- bowie grade 3. Bilateral hammertoes. Right hallux ulcer, healed. Left toe ulcer (5th) - healed. Lower extremity edema. Peripheral vascular disease. delayed healing. Malnutrition suspected. Diabetes with neuropathy Plan: I reviewed and discussed the case today. Subcutaneous excisional debridement was performed as noted in the nursing panel to the right third toe. Offloading measures are to be implemented with right lower extremity surgical shoe for an additional 2 weeks. Okay to transition and extra-depth shoes at the present time. A referral was provided foot and ankle center to get set up with this diabetic shoe program. To discontinue dressing care and nutritional supplementation because the ulcer site is healed. To keep skin integrity intact with daily moisturization. To monitor for reopening or additional infection development; is not noted today. He is discharged from the wound healing center at this time. I answered all his questions. To follow-up with Dr. Menard with vascular surgery as advised. It is noted he has had previous arterial intervention with improved perfusion to the foot. To continue to perform daily foot checks.
== END 2018-05-06 23:59 ==
LOC: WC 13:30
PROVIDERS: Family Provider Family Medicine; PCP Family Medicine; Referring Provider Surgery; Visit Provider Podiatrist
DX: E11.621 Type 2 diabetes mellitus with foot ulcer (principal); M20.41 Other hammer toe(s) (acquired), right foot; L97.512 Non-pressure chronic ulcer of other part of right foot with fat layer exposed; E11.42 Type 2 diabetes mellitus with diabetic polyneuropathy; E11.51 Type 2 diabetes mellitus with diabetic peripheral angiopathy without gangrene; E66.9 Obesity, unspecified; Z68.41 Body mass index [BMI] 40.0-44.9, adult; Z71.3 Dietary counseling and surveillance
CPT/HCPCS: 11042; 99212; G0463

== ENCOUNTER 2019-07-16 11:01 | Inpatient (IN) | payer MEDICARE, SELFPAY ==
[2019-07-16] VITALS (8 sets, daily range): BP systolic 142–184; BP diastolic 72–91; PULSE 56–80; RESP 16–22; TEMP 36.1–36.8; O2SAT 94–100; BMI 41.8
--- NOTE | 2019-07-16 11:23 | RAD_ITS ---
STUDY: X-RAY - LEFT FOOT CLINICAL: Male, 79 years old. OSTEO GREAT TOE. PT IS DIABETIC. HX TRAUMA TECHNIQUE: 3 view(s) of the foot. COMPARISON: Comparison is made with prior study dated November 25, 2017. FINDINGS: There is a plantar calcaneal spur. Normal visualized subtalar, talonavicular, calcaneocuboid, tarsal and tarsometatarsal articulations. Normal metatarsi. There is degenerative arthrosis of the metatarsophalangeal joint of the hallux with a hallux valgus deformity. Normal tibial and fibular sesamoid bones. There is degenerative arthrosis of the interphalangeal joint of the great toe. Weren''t again, there is resorption of the tuft of the distal phalanx of the great toe. Normal second through fifth metatarsophalangeal joints. Normal interphalangeal joints and phalanges of the lesser toes. Soft tissue ulceration and swelling overlying the great toe as well as the dorsal aspect of the foot. RAD/Foot min 3 Views IMPRESSION: Stable examination with the erosions of the distal portion of the distal phalanx of the great toe with overlying soft tissue swelling and ulceration. Electronically Signed: Wayne Wang, at 13:25 EST , Service support ,
[2019-07-16] MEDS: 0.9% Normal Saline 1,000 ML 150 ML IV (12:16)
[2019-07-16 12:18] LABS: Erythrocyte Sedimentation Rate 59 mm/hr (0-20)
[2019-07-16 12:21] LABS: Hematocrit 36.2 % (40-54); Mean Corp Hgb Conc 30.4 g/dL (32-36); Mean Corpuscular Hgb 28.1 pg (27.0-32.0); Mean Corpuscular Volume 92.3 fL (80-94); Mean Platelet Vol. 9.8 fl (6.2-12.0); POSITIVE COUNT YES; POSITIVE MORPHOLOGY YES; Platelet Count 373 K/mm3 (150-450); RBC Distribution Width SD 47.8 fl (35.1-43.9); Red Blood Count 3.92 M/mm3 (4.6-6.2); White Blood Count 8.9 K/mm3 (4.4-11.0)
[2019-07-16 12:22] LABS: Differential Indicated MANUAL DIFF
[2019-07-16 12:27] LABS: International Normalized Ratio 1.3; Prothrombin Time (Protime)PT. 16.1 SECONDS (11.7-14.9)
[2019-07-16 12:28] LABS: Partial Thromboplast Time 36.7 Seconds (24.1-36.2)
[2019-07-16 12:41] LABS: Lactic Acid 4.2 mmol/L (0.4-1.9)
[2019-07-16 12:54] LABS: Neutrophil-Segmented 76 % (47-70); Total Cells Counted 100 (MANUAL DIFF)
[2019-07-16 12:55] LABS: Absolute Neutrophil Count 6.8 X10^3/uL (2.0-7.7); Basophil 1 % (0-1); Eosinophil 1 % (0-5); Lymphocyte 12 % (19-41); Monocyte 6 % (0-10); Myelocyte 1 (0-0); Platelet Estimate ADEQUATE (ADEQ); Promyelocyte 3 (0-0); Red Cell Morphology NORM C+C NORMAL (NORM C&C)
[2019-07-16 13:03] LABS: ALB/GLOB Ratio 0.5 RATIO (0.9-2.4); AST(SGOT) 37 U/L (15-37); Alanine Aminotransfer ALT/SGPT 31 U/L (16-61); Albumin, Serum 2.6 g/dL (3.2-5.0); Alkaline Phosphatase 181 U/L (45-117); Anion Gap 6 (5-15); BUN 23 mg/dL (7-18); BUN/Creat Ratio 10.6 RATIO (10-20); Calcium,Total 9.3 mg/dL (8.5-10.1); Chloride 106 mmol/L (98-107); Creatinine, Serum 2.16 mg/dL (0.70-1.30); EST Glomerular Filtration Rate 31 mL/min (>60); Est Glom Filt Rate - Afr Amer 38 mL/min (>60); Estimated Creatinine Clearance 23.73 ml/min; Globulin 5.6 g/dL (2.2-4.2); Glucose 119 mg/dL (74-106); Potassium 4.7 mmol/L (3.5-5.1); Protein, Total 8.2 g/dL (6.4-8.2); Sodium Level 137 mmol/L (136-145)
[2019-07-16 13:25] LABS: M R Staph aureus DNA By PCR Negative (Negative); Probe Check PASS; Specimen Processing Control PASS; Staph aureus DNA By PCR POSITIVE (Negative)
--- NOTE | 2019-07-16 13:49 | ED.DCSUM_ITS ---
- ER Visit Summary Date of Service: 07/16/19 Chief Complaint: Left great toe infection History of Present Illness: The patient is a [address] Dc. This morning patient saw Dr. Juarez Parker a take away worker at [facility] and was sent to the emerge department for work-up and admission. Patient reports that on July 07 he hit his left great toe with a door. Approximately 1 week ago the area turned black and he developed an ulcer on the bottom. He denies any pain. However, he has a history of diabetic neuropathy. He denies any constitutional symptoms other than a poor appetite. No nausea, vomiting, fever, or chills. Physical Examination: Vitals: Stable. Afebrile. General: Well-nourished and well-developed. Head: Normocephalic atraumatic. Neck: Supple, no lymphadenopathy. No JVD. Nontender. Cardiovascular: Regular rate and rhythm. No murmurs. Respiratory: No respiratory distress. Clear to auscultation bilaterally. Abdominal: Soft, nontender, nondistended, normal bowel sounds. No guarding, rebound, or peritoneal signs. Back: Nontender. Extremities: Left great toe shows a superficial ulcer on the medial side proximally. This is approximately 1 cm in diameter. There is also an ulcer on the distal phalanx that extends into the fat. This is dime sized. He also has an ulcer on the plantar surface of the distal phalanx that is nickel sized. It is difficult to ascertain surrounding erythema due to Betadine placed prior to arrival. Skin: Normal color, no rash. Neurologic: Alert and oriented ?3. Cranial nerves II through XII are intact. Normal strength and sensation. Psych: Normal affect. Test Results: CBC shows an H&H 11.0 36.2, 7 neutrophils 76, lymphocytes 12, promyelocytes of 3 and myelocytes of 1. Chem-7 shows a BUN of 23 and creatinine of 2.16. LFTs are normal. INR is 1.3. PTT is 36.7. Lactic acid is 4.2. Sed rate is 59. CRP is 52.4. Clinical Impression(s) from Imaging Studies Foot X-Ray 07/16/19 11:23 IMPRESSION: Stable examination with the erosions of the distal portion of the distal phalanx of the great toe with overlying soft tissue swelling and ulceration. Electronically Signed: Wayne Wang, at 13:25 EST , Service support , Emergency Department Course and Treatment: This time patient does not meet SIRS criteria. However, he clearly has an infection he was given Zosyn and vancomycin IV. I do not think giving him a 30 cc/kg bolus of normal saline due to a lactic acid of 4.2 is in his best interest. He was given 2 L of normal saline. His blood pressures remained stable and he is remained asymptomatic while here. Treatment Plan: Patient was discussed with Dr. Crook. He will be admitted to the hospital for further evaluation and treatment. Disposition: Admitted in improved condition. Impression: 1. Left great toe diabetic foot ulcer. 2. Lactic acidosis. 3. Osteomyelitis left distal phalanx. This note was generated with [employer] dictation software. It may contain incorrect words, spelling, and punctuation that were not noted in review of the chart prior to signing ED Disposition - Plan for ED Patient: Referrals: Carolyn Asif, [email or web address] [Primary Care Provider] -
[2019-07-16] MEDS: 0.9% Normal Saline 1,000 ML 999 ML IV ×2 (13:50→15:49)
--- NOTE | 2019-07-16 13:51 | NURSING ---
MED SURG [facility] DIABETIC FOOT ULCER
--- NOTE | 2019-07-16 14:14 | HP.PCM_ITS ---
History of Present Illness Date of Admission: 07/16/19 Chief Complaint: toe infection The patient is a 79 year old M presents with left great toe infection. Proximally 1 week ago, patient hit his toe after getting rolled over by a door. Noticed it then getting black at the distal end and then just getting worse. Saw Dr. walter Parker who is concerned about osteomyelitis and sent the patient to the emergency room. In the emergency room, patient was not septic but did have a lactic acid of greater than 4. Patient was positive for staph aureus MRSA swab was negative. Patient has diabetic neuropathy and has no feeling in his foot. He denies any other constitutional symptoms. [] Past Medical History Past Medical History (Chronic Problems): Chronic Problems Diabetic foot ulcer (Chronic) Diabetes mellitus (Chronic) Peripheral neuropathy (Chronic) Obesity (Chronic) History of pulmonary embolism (Chronic) Hypertension (Chronic) Hyperlipidemia (Chronic) Arthritis (Chronic) History of [place] (myocardial infarction) (Chronic) History of CVA (cerebrovascular accident) (Chronic) Leg swelling (Chronic) Edema of leg (Chronic) CKD (chronic kidney disease) stage 3, GFR 30-59 ml/min (Chronic) Ulcer of right foot with necrosis of bone (Chronic) Hammer toe of right foot (Chronic) Type 2 diabetes mellitus with diabetic polyneuropathy (Chronic) Osteomyelitis (Chronic) Other specified peripheral vascular diseases (Chronic) Ulcer of right foot with fat layer exposed (Chronic) Exogenous obesity (Chronic) GERD (gastroesophageal reflux disease) (Chronic) Coronary artery disease involving [place] coronary artery of [place] heart (Chronic) Chronic kidney disease (CKD) (Chronic) Gout (Chronic) Lumbosacral stenosis (Chronic) Degeneration of lumbosacral intervertebral disc (Chronic) Lumbosacral radiculopathy (Chronic) PAD (peripheral artery disease) (Chronic) Diabetes mellitus type II, controlled (Chronic) Allergies allopurinol Adverse Reaction (Verified 07/16/19 11:02) Other exenatide [From Byetta] Adverse Reaction (Verified 07/16/19 11:02) Other insulin aspart [From Novolog] Adverse Reaction (Verified 07/16/19 11:02) Other insulin glargine, human recombin. 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 Clopidogrel Bisulfate [Plavix] 75 mg PO DAILY 01/15/17 Pantoprazole Sodium [Protonix] 20 mg PO DAILY 01/15/17 Probenecid 500 mg PO BID 11/25/17 Alirocumab [Praluent Pen] 75 mg SQ UD 07/16/19 Apixaban [Eliquis] 2.5 mg PO BID 07/16/19 Metoprolol Tartrate [Lopressor 50 mg PO DAILY@0800 07/16/19 (beta vania)] glipiZIDE [Glucotrol] 10 mg PO BID 07/16/19 traMADol [Ultram] 50 mg PO Q6H PRN PRN 07/16/19 Surgical History: angioplasty, cholecystectomy, coronary bypass surgery, total knee arthroplasty, tonsillectomy, - - Vein stripping, rectal fistula repair, ORIF fractured leg, bilateral cataract extraction Smoking Status: Former smoker - *Family History Paternal History Items: - - The patient's father at age of 69 with a history of coronary artery disease and diabetes mellitus. The patient's mother lived to be 95 years of age, and passed of old age. Review of Systems Constitutional: Denies: Anorexia, Chills, Fever, Night Sweats Eyes: Denies: Blurred vision, Double vision HEENT: Denies: Head Aches, Sinus Congestion, Sinus Drainage Cardiovascular: Denies: Chest Pain, Palpitations Respiratory: Denies: Cough, Shortness of breath at rest, Sputum production Gastrointestinal: Denies: Abdominal Pain, Nausea, Vomiting Genitourinary: Denies: Dysuria Musculoskeletal: Denies: Joint Pain, Joint Tenderness Skin: Reports: Wounds. Denies: Dryness Neurological: Denies: Numbness, Tingling, Focal weakness Psychiatric: Denies: Anxiety, Depression Endocrine: Denies: Change in Body Habitus, Heat/ Cold Intolerance Hematologic/ Lymphatic: Denies: Easy Bruising, Easy Bleeding, Hx of blood clot Comment: All review systems are otherwise negative except for as mentioned above and in the HPI. VTE Information - Inpt Only VTE Present on Admission: No VTE Mechan Device Prophylaxis: None VTE Pharm Prophylaxis ordered?: Yes - Physical Exam Vitals/I&O's: Vital Signs Temp Pulse Resp BP Pulse Ox 36.8 C 80 18 152/80 H 100 07/16/19 11:03 07/16/19 14:07 07/16/19 14:07 07/16/19 12:13 07/16/19 14:07 Oxygen Delivery Method Room Air Weight: 113.852 kg Body Mass Index (BMI) 41.8 Intake and Output for Last 24 Hours 07/14/19 07/15/19 07/16/19 23:59 23:59 23:59 Intake Total 100 / 100 Balance 100 / 100 General: Alert, Cooperative, No apparent distress HEENT: Atraumatic, Normocephalic Oral: Moist Mucosa, No Gingival or Mucosal Lesions/ Ulcerations Neck: No Nodes, Trachea Midline Lungs: Clear to auscultation, Normal air movement, No rhonchi, No wheeze, No rales Cardiovascular: Regular rate, Regular Rhythm, Normal S1, Normal S2, No murmurs Abdomen: Bowel Sounds Present, Soft, Non Tender, Non-Distended, No Hepato- splenomegaly Extremities: No edema, No Calf Tenderness Skin: - - Fluctuant area on the distal left great toe. Unroofed lesion on the plantar aspect of the left great toe and a darkened area on the dorsal aspect at the great toe joint. No odor was appreciated. Musculoskeletal: No Tenderness to Palpation of Joints or Extremities, No Muscle Wasting Neurological: Muscle tone normal, - - Diminished sensation in his feet Psych/Mental Status: Normal Affect, Appropriate Laboratory Results 07/16/19 11:50: WBC 8.9, RBC 3.92 L, Hgb 11.0 L, Hct 36.2 L, MCV 92.3, MCH 28.1, MCHC 30.4 L, RDW Std Deviation 47.8 H, RDW Coeff of Suraj 14.0, Plt Count 373, MPV 9.8, Neut % (Auto) Not Reportable, Absolute Neuts (auto) 6.8, Absolute Lymphs (auto) 1.70, Total Counted 100, Neutrophils % (Manual) 76 H, Lymphocytes % (Manual) 12 L, Monocytes % (Manual) 6, Eosinophils % (Manual) 1, Basophils % (Manual) 1, Myelocytes % 1 H, Promyelocytes % 3 H, Diff Path Review November, Platelet Estimate ADEQUATE, RBC Morphology NORM C+C, ESR 59 H 07/16/19 11:50: PT 16.1 H, INR 1.3, APTT 36.7 H 07/16/19 11:50: Sodium 137, Potassium 4.7, Chloride 106, Carbon Dioxide 25.0, Anion Gap 6, BUN 23 H, Creatinine 2.16 H, Estim Creat Clear Calc 23.73, Est GFR (MDRD) Af Amer 38 L, Est GFR (MDRD) Non-Af 31 L, BUN/Creatinine Ratio 10.6, Glucose 119 H, Calcium 9.3, Total Bilirubin 0.50, AST 37, ALT 31, Alkaline Phosphatase 181 H, C-React Prot Ext Range 52.40 H, Total Protein 8.2, Albumin 2.6 L, Globulin 5.6 H, Albumin/Globulin Ratio 0.5 L 07/16/19 11:50: Lactic Acid 4.2 H* 07/16/19 11:57: S.aureus Protein A PCR POSITIVE H, MRSA (PCR) Negative Clinical Impression(s) from Imaging Studies Foot X-Ray 07/16/19 11:23 IMPRESSION: Stable examination with the erosions of the distal portion of the distal phalanx of the great toe with overlying soft tissue swelling and ulceration. Electronically Signed: Wayne Wang, at 13:25 EST , Service support , Current Medications Sodium Chloride () 1,000 mls @ 150 mls/hr IV .Q6H40M [facility] Last Admin: 07/16/19 12:16 Dose: 150 mls/hr Documented by: Sodium Chloride () 1,000 mls @ 999 mls/hr IV .Q1H1M CAMILO Stop: 07/16/19 15:15 Last Admin: 07/16/19 13:50 Dose: 999 mls/hr Documented by: Assessment/Plan All Active Problems Osteomyelitis of toe of right foot (Resolved) Chronic ulcer of left foot with fat layer exposed (Resolved) Ulcer of right foot with fat layer exposed (Resolved) Pulmonary embolus (Acute) Diabetic ulcer of toe (Acute) MRSA (methicillin resistant staph aureus) culture positive (Resolved) 1. Left great toe diabetic wound * Concern is for osteomyelitis. At this point time patient does have a localized cellulitis with some abscesses * X-ray was negative for any osteomyelitis so the next up would be to perform an MRI * MRSA swab was negative and so we will just continue with Pipracil and/tazobactam and await further wound culture results * Consult podiatry page out to Dr. Parker 2. Diabetes mellitus type 2 * On glipizide * At sliding-scale insulin * Check an A1c 3. CAD * remote stent * hold clopidogrel in anticipation of surgery 4. VTE, chronic * await podiatry input and MRI report, may need to hold apixaban 5. VTE prophylaxis: on apixaban 6. ACP: full code. 7. Elevated lactic acid * pt meets 0/4 SIRS criteria, therefore, not septic shock (much less sepsis) * unclear why it is elevated * he is asymptomatic * no need for 30cc/kg of IVF Code Visit Inpatient E&M: 35736 Init Hosp L3
[2019-07-16 14:25] LABS: Pathologist Review Reviewed
--- NOTE | 2019-07-16 15:28 | MRI_ITS ---
HISTORY: Left great toe infection. Redness and swelling. Drainage of almost entire right great toe. Diabetes. Neuropathy. Technique: Axial sagittal and coronal T1-weighted images were obtained. Sagittal T2 fat sat series is obtained. X-ray of the left foot is from July 16, at 12:28 PM, about 6 hours earlier. 5 diagnostic series. 193 images. Findings: Extension deformities at the metatarsophalangeal joints. Flexion deformities at the second through fifth interphalangeal joints. Motion artifact degrades the utility of the study, especially on the T2 fat saturated series. No gadolinium images. Only one series of T2 fat saturation. Abnormal decreased T1 weighted signal with erosions is present at the first metatarsophalangeal joint, the first interphalangeal joint, the margins of the medial cuneiform first metatarsal joint, the second metatarsophalangeal joint on the proximal end of the second proximal phalanx, the middle cuneiform second metatarsal joint, the third proximal interphalangeal joint and throughout the entire length of the third middle phalanx, the fourth metatarsophalangeal joint, the fourth proximal interphalangeal joint, the length of the fourth middle phalanx, the fifth metatarsal phalangeal joint, and other tarsometatarsal joints which are incompletely demonstrated. These areas do somewhat demonstrates some edema on the T2-weighted series, however, due to the tremendous amount of motion artifact and only one T2 fat saturated series, this is suboptimally demonstrated. There is severe amount of atrophy of the foot muscles. Tendons are grossly intact. MRI/Lower Ext/No Jt/w/o IMPRESSION: Evidence for inflammation at the first metatarsophalangeal joint and first interphalangeal joint. This could be gout or infectious arthropathy. Erosion and edema surrounding the third proximal and distal phalanges and joints which could be perhaps gouty arthritis or infectious arthritis and osteomyelitis. Additional erosions at the medial cuneiform and proximal end of the first phalanx which could be due to gouty arthritis or infectious arthritis. Additional soft tissue at the fourth proximal interphalangeal joint which could be infectious arthritis or gouty arthritis. In the settings of possible infectious arthritis there is likely also osteomyelitis. at 2013 Reported and signed by: Haroon Pitts MD Electronically Signed: Haroon Pitts MD at 20:12 EST Tel , Service support ,
--- NOTE | 2019-07-16 15:28 | ART_ITS ---
Reason For Study: Diabetic foot wound Procedure A bilateral lower extremity continuous wave Doppler with analog waveform analysis and ankle brachial indexes. Left Segmental Pressures Left brachial= 165mmHg. Left posterior tibial artery = 132mmHg. Left dorsalis pedis artery = 150mmHg. Right Segmental Pressures Right brachial= 170mmHg. Right posterior tibial artery = 85mmHg. Right dorsalis pedis artery = 138mmHg. Right digit = 78 mmHg. The right dorsalis pedis waveforms are biphasic. The right posterior tibial artery waveforms are biphasic. Indices The right ankle brachial index by the dorsalis pedis is 0.81. The right ankle brachial index by the posterior tibial artery is 0.50. The right digital-brachial index is 0.46. The left ankle brachial index by the dorsalis pedis is 0.88. The left ankle brachial index by the posterior tibial artery is 0.78. Interpretation Summary Moderately severe right lower extremity arterial occlusive disease Moderately severe left lower extremity arterial occlusive disease Ordering Physician: Grupo Crook Referring Physician: Carolyn Asif Performed By: Vane Larios RVT
[2019-07-16 16:07] LABS: Reflex Lactate? Y
[2019-07-16 16:10] LABS: Bedside Glucose 115 mg/dL (70-110)
--- NOTE | 2019-07-16 16:30 | CHAPLAIN ---
spoke with family members to offer support as patient was being settled in room
[2019-07-16] MEDS: glipiZIDE 10 MG Tablet PO (16:43)
[2019-07-16 16:46] LABS: Hemoglobin A1c 7.5 % (4.2-6.3)
[2019-07-16 17:21] LABS: Lactic Acid 0.6 mmol/L (0.4-1.9)
[2019-07-16] MEDS: Metoprolol Tartrate 25 MG Tablet PO (20:07)
[2019-07-16] MEDS: 0.9% Saline Lock 10 ML Syringe IV (21:34)
[2019-07-16] MEDS: APIXABAN 2.5 MG TABLET PO (21:34)
[2019-07-16] MEDS: Timolol 0.5% 5ML OPTH.BTL 1 DRP EACH EYE (21:35)
[2019-07-16 21:46] LABS: Bedside Glucose 195 mg/dL (70-110)
[2019-07-17 03:30] VITALS: BP 141/68; PULSE 68; RESP 20; TEMP 36.3; O2SAT 99
[2019-07-17 06:26] LABS: Bedside Glucose 150 mg/dL (70-110)
[2019-07-17] MEDS: Insulin Lispro 100 UNIT/ML INSULN.PEN SC ×3 (06:43→17:11)
[2019-07-17 07:42] VITALS: BP 153/70; PULSE 63; RESP 18; TEMP 36.4; O2SAT 100; O2SAT 98
[2019-07-17 07:44] VITALS: BP 153/70; PULSE 63
[2019-07-17] MEDS: glipiZIDE 10 MG Tablet PO ×2 (07:44→17:11)
[2019-07-17] MEDS: Metoprolol Tartrate 50 MG Tablet PO (07:44)
[2019-07-17 07:58] LABS: Absolute Lymphocyte Count 1.34 X10^3/uL (0.83-4.51); Basophil# 0.03 X10^3/uL; Basophil% 0.4 % (0-1); Eosinophil# 0.07 X10^3/uL; Eosinophils% 0.9 % (0-5); Hematocrit 33.1 % (40-54); Hemoglobin 10.3 g/dL (13.0-16.5); Lymphocyte # 1.34 X10^3/ul (4.0); Mean Corp Hgb Conc 31.1 g/dL (32-36); Mean Corpuscular Hgb 28.4 pg (27.0-32.0); Mean Corpuscular Volume 91.2 fL (80-94); Mean Platelet Vol. 9.1 fl (6.2-12.0); Monocyte# 0.69 X10^3/uL; Monocyte% 9.3 % (0-10); NRBC Flagged by Analyzer 0 % (0-5); Neutrophil # 4.99 X10^3/uL (2.7-7.7); Platelet Count 287 K/mm3 (150-450); RBC Distribution Width CV 13.6 % (11.6-14.6); RBC Distribution Width SD 46.3 fl (35.1-43.9); Red Blood Count 3.63 M/mm3 (4.6-6.2); White Blood Count 7.5 K/mm3 (4.4-11.0)
[2019-07-17 08:06] LABS: Anion Gap 7 (5-15); BUN 25 mg/dL (7-18); BUN/Creat Ratio 12.1 RATIO (10-20); Calcium,Total 8.5 mg/dL (8.5-10.1); Chloride 110 mmol/L (98-107); Creatinine, Serum 2.06 mg/dL (0.70-1.30); EST Glomerular Filtration Rate 33 mL/min (>60); Est Glom Filt Rate - Afr Amer 40 mL/min (>60); Estimated Creatinine Clearance 23.95 ml/min; Glucose 180 mg/dL (74-106); Potassium 4.6 mmol/L (3.5-5.1); Sodium Level 140 mmol/L (136-145)
--- NOTE | 2019-07-17 09:45 | PCM.PROGNOTE ---
Subjective: Chief complaint: Follow-up after admission for left forefoot cellulitis/infected diabetic foot ulcer, osteomyelitis and lactic acidosis. Patient seen and examined. No acute events overnight. He denied any left foot pain. Denies fever chills. His vital signs are stable. - Physical Exam Vitals/I&O's: Vital Signs Temp Pulse Resp BP Pulse Ox 97.6 F L 63 18 153/70 H 98 07/17/19 07:42 07/17/19 07:44 07/17/19 07:42 07/17/19 07:44 07/17/19 07:42 Oxygen Delivery Method Room Air Weight: 250 lb 14.177 oz Body Mass Index (BMI) 41.8 Intake and Output for Last 24 Hours 07/15/19 07/16/19 07/17/19 23:59 23:59 23:59 Intake Total 3845 / 4295 700 / 700 Output Total 450 / 450 Balance 3395 / 3845 700 / 700 General: Alert, Oriented x3, Cooperative, No apparent distress HEENT: Atraumatic, PERRLA, EOMI, Normocephalic Oral: Moist Mucosa, No Gingival or Mucosal Lesions/ Ulcerations Neck: Supple, No JVD, Negative Carotid Bruits, Trachea Midline, Thyroid Normal Size and Texture Lungs: Clear to auscultation, Normal air movement, No rhonchi, No wheeze, No rales, Diminished Cardiovascular: Regular rate, Regular Rhythm, Normal S1, Normal S2, No murmurs Abdomen: Bowel Sounds Present, Soft, Non Tender, Non-Distended, No Hepato-splenomegaly Extremities: No clubbing, No cyanosis, No edema, - - Left foot: Erythema and swelling involving the left forefoot, mainly left big toe and extending to the adjacent toes, necrotic tissue on the top of the left big toe. Skin: No rashes, Ulcer/ Wound Lymphatic: No Cervical, Supraclavicular, or Inguinal Adenopathy Neurological: Cranial nerves II-XII grossly intact, Motor Exam 5/5 strength throughout Psych/Mental Status: Normal Affect, Appropriate, Alert and oriented to time, place, person, mood and affect Microbiology Past 72 Hours 07/16/19 11:57 Wound - Toe Gram Stain - Final Laboratory Results 07/16/19 11:50: WBC 8.9, RBC 3.92 L, Hgb 11.0 L, Hct 36.2 L, MCV 92.3, MCH 28.1, MCHC 30.4 L, RDW Std Deviation 47.8 H, RDW Coeff of Suraj 14.0, Plt Count 373, MPV 9.8, Neut % (Auto) Not Reportable, Absolute Neuts (auto) 6.8, Absolute Lymphs (auto) 1.70, Total Counted 100, Neutrophils % (Manual) 76 H, Lymphocytes % (Manual) 12 L, Monocytes % (Manual) 6, Eosinophils % (Manual) 1, Basophils % (Manual) 1, Myelocytes % 1 H, Promyelocytes % 3 H, Diff Path Review Reviewed, Platelet Estimate ADEQUATE, RBC Morphology NORM C+C, ESR 59 H 07/16/19 11:50: PT 16.1 H, INR 1.3, APTT 36.7 H 07/16/19 11:50: Sodium 137, Potassium 4.7, Chloride 106, Carbon Dioxide 25.0, Anion Gap 6, BUN 23 H, Creatinine 2.16 H, Estim Creat Clear Calc 23.73, Est GFR (MDRD) Af Amer 38 L, Est GFR (MDRD) Non-Af 31 L, BUN/Creatinine Ratio 10.6, Glucose 119 H, Calcium 9.3, Total Bilirubin 0.50, AST 37, ALT 31, Alkaline Phosphatase 181 H, C-React Prot Ext Range 52.40 H, Total Protein 8.2, Albumin 2.6 L, Globulin 5.6 H, Albumin/Globulin Ratio 0.5 L 07/16/19 11:50: Lactic Acid 4.2 H* 07/16/19 11:50: Hemoglobin A1c 7.5 H 07/16/19 11:57: S.aureus Protein A PCR POSITIVE H, MRSA (PCR) Negative 07/16/19 16:07: POC Glucose 115 H 07/16/19 16:28: Lactic Acid 0.6 07/16/19 21:32: POC Glucose 195 H 07/17/19 06:18: POC Glucose 150 H 07/17/19 07:35: WBC 7.5, RBC 3.63 L, Hgb 10.3 L, Hct 33.1 L, MCV 91.2, MCH 28.4, MCHC 31.1 L, RDW Std Deviation 46.3 H, RDW Coeff of Suraj 13.6, Plt Count 287, MPV 9.1, Immature Gran % (Auto) 4.400 H, Neut % (Auto) 67.0, Lymph % (Auto) 18.0 L, [place] % (Auto) 9.3, Eos % (Auto) 0.9, Baso % (Auto) 0.4, Absolute Neuts (auto) 5.0, Absolute Lymphs (auto) 1.34, Nucleated RBC % 0 07/17/19 07:35: Sodium 140, Potassium 4.6, Chloride 110 H, Carbon Dioxide 23.0, Anion Gap 7, BUN 25 H, Creatinine 2.06 H, Estim Creat Clear Calc 23.95, Est GFR (MDRD) Af Amer 40 L, Est GFR (MDRD) Non-Af 33 L, BUN/Creatinine Ratio 12.1, Glucose 180 H, Calcium 8.5 Clinical Impression(s) from Imaging Studies Foot X-Ray 07/16/19 11:23 IMPRESSION: Stable examination with the erosions of the distal portion of the distal phalanx of the great toe with overlying soft tissue swelling and ulceration. Electronically Signed: Wayne Wang, at 13:25 EST , Service support , Lower Extremity MRI 07/16/19 15:28 IMPRESSION: Evidence for inflammation at the first metatarsophalangeal joint and first interphalangeal joint. This could be gout or infectious arthropathy. Erosion and edema surrounding the third proximal and distal phalanges and joints which could be perhaps gouty arthritis or infectious arthritis and osteomyelitis. Additional erosions at the medial cuneiform and proximal end of the first phalanx which could be due to gouty arthritis or infectious arthritis. Additional soft tissue at the fourth proximal interphalangeal joint which could be infectious arthritis or gouty arthritis. In the settings of possible infectious arthritis there is likely also osteomyelitis. at 2013 Reported and signed by: Haroon Pitts MD Electronically Signed: Haroon Pitts MD at 20:12 EST Tel , Service support , Current Medications Acetaminophen (Tylenol) 650 mg PO Q6H PRN PRN PRN Reason: Pain Score 1-3/Temp > 100.7 F Glipizide (Glucotrol) 10 mg PO BID@0800,1700 [facility] Last Admin: 07/17/19 07:44 Dose: 10 mg Documented by: Glucagon () 1 mg IM .X1 PRN PRN Reason: Hypoglycemia Piperacillin Sod/Tazobactam (Sod 3.375 gm/ Sodium Chloride) 50 mls @ 12.5 mls/hr IV Q8 [facility] Last Admin: 07/17/19 05:22 Dose: 12.5 mls/hr Documented by: Dextrose (Dextrose 10%-Water) 250 mls @ 999 mls/hr IV .Q16M PRN; Protocol PRN Reason: HYPOGLYCEMIA Sodium Chloride () 1,000 mls @ 100 mls/hr IV .Q10H [facility] Insulin Human Lispro (Humalog Kwikpen (Bkc)) 0 unit SC TIDAC [facility]; Protocol Last Admin: 07/17/19 06:43 Dose: 1 units Documented by: Metoprolol Tartrate (Lopressor (Beta Deborah)) 25 mg PO DAILY@2000 [facility] Last Admin: 07/16/19 20:07 Dose: 25 mg Documented by: Metoprolol Tartrate (Lopressor (Beta Deborah)) 50 mg PO DAILY@0800 [facility] Last Admin: 07/17/19 07:44 Dose: 50 mg Documented by: Nitroglycerin (Nitrostat) 0.4 mg SUBLINGUAL Q5M PRN PRN Reason: CARDIAC/CHEST PAIN Pantoprazole Sodium (Protonix) 20 mg PO DAILY [facility] Sodium Chloride () 10 - 40 ml IV UD PRN PRN Reason: SALINE FLUSH Last Admin: 07/16/19 21:34 Dose: 10 ml Documented by: Timolol Maleate (Timoptic) 1 drop EACH EYE BID [facility] Last Admin: 07/16/19 21:35 Dose: 1 drop Documented by: Tramadol HCl (Ultram) 50 mg PO Q6H PRN PRN PRN Reason: Pain Score 6-10/10 Medical Necessity - Tobacco Use Smoking Status: Former smoker Assessment/Plan This is an 79 years old male patient was sent to the emergency department by Dr. Parker who was a burner operator for left big toe ulcer/infected wound and cellulitis of the left forefoot and he was admitted for evaluation and treatment. #1 left forefoot cellulitis/infected diabetic left big toe ulcer/left big toe osteomyelitis: He is on IV Zosyn. He is afebrile, no leukocytosis, vital signs are stable. MRI of the left foot reviewed as above. MRSA screen was negative but patient history of MRSA infection in the past. Podiatry medicine consulted. Plan: Start IV vancomycin, IV fluids, repeat CBC and BMP after tomorrow morning, awaiting podiatry medicine recommendation. #2 lactic acidosis: With stable vital signs. Lactic acid was 4.2, came down to 0.6 with IV fluids. Patient has been afebrile. He is on IV Zosyn, will add vancomycin as above. #3 type 2 diabetes mellitus: Seemed to be under fair control. Hemoglobin A1c was 7.5%. Continue glipizide and sliding scale. #4 peripheral vascular disease: Ankle-brachial index performed, revealed left and right moderately severe arterial occlusive disease. Patient may need to be evaluated by vascular surgery as outpatient. #5 CAD status post stents: Stable, no complaints. Continue metoprolol. Plavix held because patient may go for surgery. #6 hypertension: Blood pressure stable, continue metoprolol. Will start IV hydralazine PRN. #7 stage III chronic kidney disease: Baseline creatinine has been around 1.5-1.8, admission creatinine is 2.1, came down to 2.06 today. Will restart IV fluids, repeat BMP after tomorrow. #8 history of pulmonary embolism: Patient is on Eliquis. I will hold Eliquis at this time because patient may go for surgery. Will start subcu pain for DVT prophylaxis. #9 GERD: Continue Protonix. #10 DVT prophylaxis: Discontinue Eliquis, start subcu heparin. This note was generated with [employer] dictation software. It may contain incorrect words, spelling, and punctuation that were not noted in checking the note before signing. Code Visit Inpatient E&M: 55472 Subs Hosp L2
--- NOTE | 2019-07-17 10:03 | PCM.RX.CS ---
Consult Pharmacy has been consulted to manage selected antiobiotic: Vancomycin Type of Consult: New start Suspected Infection: Osteomyelitis Labs: Sodium 140 mmol/L (136-145) 07/17/19 07:35 Potassium 4.6 mmol/L (3.5-5.1) 07/17/19 07:35 Chloride 110 mmol/L (98-107) H 07/17/19 07:35 Carbon Dioxide 23.0 mmol/L (21.0-32.0) 07/17/19 07:35 Anion Gap 7 (5-15) 07/17/19 07:35 BUN 25 mg/dL (7-18) H 07/17/19 07:35 Creatinine 2.06 mg/dL (0.70-1.30) H 07/17/19 07:35 Est GFR (MDRD) Af Amer 40 mL/min (>60) L 07/17/19 07:35 Est GFR (MDRD) Non-Af 33 mL/min (>60) L 07/17/19 07:35 BUN/Creatinine Ratio 12.1 RATIO (-) 07/17/19 07:35 Glucose 180 mg/dL (74-106) H 07/17/19 07:35 Microbiology: Microbiology 07/16/19 11:57 Wound - Toe Gram Stain - Final Weight used for dosin kg Estimated Creatinine Clearance: 25 mL/min Goal Trough: 15-20 mcg/mL Pharmacy Plan for Drug Dosing: ER dose yesterday 1750mg IV x1. Reordered by Dr Yang today scheduled. 1250mg IV q24h with trough prior to 3rd dose per policy. Pharmacy Service will continue to monitor and adjust dosing as required. Follow-Up Labs: Trough Vancomycin - 07/19 @ 1230
[2019-07-17] MEDS: Timolol 0.5% 5ML OPTH.BTL 1 DRP EACH EYE ×2 (10:13→21:32)
[2019-07-17] MEDS: Pantoprazole Sodium 20 MG Tablet PO (10:13)
--- NOTE | 2019-07-17 11:09 | CON.PCM_ITS ---
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 Status: Acute Qualifiers: Diabetic foot ulcer location: toe Diabetes mellitus type: type 2 Qualified Code(s): E11.621 - Type 2 diabetes mellitus with foot ulcer; L97.524 - Non-pressure chronic ulcer of other part of left foot with necrosis of bone (2) Peripheral vascular disease Status: Acute (3) Diabetic foot ulcer Status: Chronic Qualifiers: Diabetic foot ulcer location: toe Diabetes mellitus type: type 2 Laterality: right Non-pressure ulcer stage: with necrosis of bone Qualified Code(s): E11.621 - Type 2 diabetes mellitus with foot ulcer; L97.514 - Non- pressure chronic ulcer of other part of right foot with necrosis of bone (4) Osteomyelitis Status: Chronic Qualifiers: Osteomyelitis type: other acute Osteomyelitis location: foot Laterality: left Qualified Code(s): M86.172 - Other acute osteomyelitis, left ankle and foot (5) PAD (peripheral artery disease) Status: Chronic Reason for Consult Date of Consultation: 07/17/19 History of Present Illness: The patient is a 79 year old M who was admitted to the hospital on July 16, 2019 for a left foot diabetic foot infection with osteomyelitis. Patient was sent to the emergency department by me after see me in the office yesterday, July 16. Upon verbal questioning, patient stubbed his left great toe and had a door roll over it on July 12, 2019. Patient had a history of ulcerations and infections of that toe, which subsided with antibiotic medications. Patient states that he was observing the left big toe to see if it got better. Patient noticed that the left big toe became swollen with multiple lesions noted. Furthermore, he noticed drainage coming from the wound and redness starting at the toe and going into the middle of his foot. His urged him to see a physician. Patient states that he saw a primary care doctor on July 15, 2019. Patient was instructed by that primary care doctor to follow-up with a foot and ankle physician. This is how the patient presented to me on July 16. After seeing the acute infection that was present along with the multiple ulcerations that probed down to bone, I suspected a significant infection with osteomyelitis in the hallux. Furthermore, there is mottling of the skin of the other digits of the left foot, so I suspected peripheral vascular disease as well. I then instructed the patient to report to the emergency department to be admitted. In the emergency room, patient was not septic but did have a lactic acid of greater than 4. Wound culture was positive for staph aureus. 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 Patient also states that he does have a history of peripheral vascular disease, and had stents placed in his right lower extremity by a physician in [place], [place] approximately 1 year ago. He is unable to recall the physician's name. Patient denies any acute events overnight. Patient has diabetic neuropathy and has no feeling in his foot. He denies any other constitutional symptoms. Currently,patient denies fever/chills/nausea/vomiting/shortness of breath/chest pain. Patient denies left foot pain. [] Past Medical History Past Medical History (Chronic Problems): Chronic Problems Diabetic foot ulcer (Chronic) Peripheral neuropathy (Chronic) Obesity (Chronic) History of pulmonary embolism (Chronic) Hypertension (Chronic) Hyperlipidemia (Chronic) History of CVA (cerebrovascular accident) (Chronic) CKD (chronic kidney disease) stage 3, GFR 30-59 ml/min (Chronic) Ulcer of right foot with necrosis of bone (Chronic) Osteomyelitis (Chronic) Ulcer of right foot with fat layer exposed (Chronic) GERD (gastroesophageal reflux disease) (Chronic) Coronary artery disease involving [place] coronary artery of [place] heart (Chronic) Gout (Chronic) Lumbosacral stenosis (Chronic) Lumbosacral radiculopathy (Chronic) PAD (peripheral artery disease) (Chronic) Diabetes mellitus type II, controlled (Chronic) Allergies allopurinol Adverse Reaction (Verified 07/16/19 11:02) Other exenatide [From Byetta] Adverse Reaction (Verified 07/16/19 11:02) Other insulin aspart [From Novolog] Adverse Reaction (Verified 07/16/19 11:02) Other insulin glargine, human recombin. a [From Lantus] Adverse Reaction (Verified 07/16/19 11:02) Other morphine Adverse Reaction (Verified 07/16/19 11:02) Other DOES NOT HELP PAIN, MAKES ME FEEL OUT OF IT Zywnjuy-Ebd-Eza Reductase Inhibitor Adverse Reaction (Verified 07/16/19 11:02) Other Home Medications: Ambulatory Orders Medication Instructions Recorded Furosemide [Lasix] 80 mg PO DAILY 05/20/14 Metoprolol Tartrate [Lopressor 25 mg PO DAILY@199905/20/14 (beta deborah)] Timolol 0.5% [Timoptic] 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 Clopidogrel Bisulfate [Plavix] 75 mg PO DAILY 01/15/17 Pantoprazole Sodium [Protonix] 20 mg PO DAILY 01/15/17 Probenecid 500 mg PO BID 11/25/17 Alirocumab [Praluent Pen] 75 mg SQ UD 07/16/19 Apixaban [Eliquis] 2.5 mg PO BID 07/16/19 Metoprolol Tartrate [Lopressor 50 mg PO DAILY@0800 07/16/19 (beta deborah)] glipiZIDE [Glucotrol] 10 mg PO BID 07/16/19 traMADol [Ultram] 50 mg PO Q6H PRN PRN 07/16/19 Surgical History: angioplasty, cholecystectomy, coronary bypass surgery, total knee arthroplasty, tonsillectomy, - - Vein stripping, rectal fistula repair, ORIF fractured leg, bilateral cataract extraction Smoking Status: Former smoker Tobacco Use: Cigarettes - *Family History Paternal History Items: - - The patient's father at age of 69 with a history of coronary artery disease and diabetes mellitus. The patient's mother lived to be 95 years of age, and passed of old age. Review of Systems Constitutional: Denies: Anorexia, Chills, Fever, Night Sweats, Malaise, Weakness Eyes: Denies: Blurred vision, Cataracts HEENT: Denies: Difficulty Hearing, Difficulty Swallowing, Dysphasia, Hard of Hearing, Head Aches Cardiovascular: Denies: Chest Pain, Chest Pressure, Chest Tightness Respiratory: Denies: Cough, Hemoptysis, Shortness of Breath, Shortness of breath at rest, Shortness of breath upon exertion Gastrointestinal: Denies: Abdominal Pain, Constipation, Diarrhea Genitourinary: Denies: Dysuria, Frequency, Hematuria, Incontinence Musculoskeletal: Denies: Foot Pain, Joint Tenderness Skin: Reports: Wounds - left big toe Neurological: Denies: Balance problems Psychiatric: Denies: Anxiety, Depression Endocrine: Denies: Change in Body Habitus, Heat/ Cold Intolerance, Polydipsia, Polyuria Patient Problems: Active and Suspected Problems 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 Patient's is present at bedside during entire visit. Patient denies any acute over night events. Acute overnight events denied by nursing staff. Patient states that he believes his left foot has gotten better in appearance. Patient denies fever, chills, nausea, vomiting, shortness of breath, chest pain. Patient denies left foot pain. Objective: Left lower extremity exam: Vascular: Reveals nonpalpable dorsalis pedis and posterior tibial pulse. Temperature gradient is within normal limits. Capillary fill time is delayed to all digits of the left foot. Minimal nonpitting edema noted of the left hallu x. Neurological: Gross and protective sensation absent to the left lower extremity up to the midportion of the calf. Musculoskeletal: No gross abnormalities noted. Muscle strength is 5 out of 5 the left lower extremity. Dermatological: Ulcerations noted on the distal, medial, and lateral aspect of the left hallux. Distal lesion measures approximately 2.5 cm x 1.5 cm x 1 cm. This has a fibronecrotic base and rounded smooth edges. Of this lesion, there is no fluctuance, no crepitus, but positive malodor. There is positive serous drainage. There is positive probing to the distal phalanx. There is positive undermining plantarly approximately 1.5 cm to the proximal phalanx. Medial lesion measures approximately 0.5 cm x 0.5 cm x 0.2 cm with a fibronecrotic base and rounded smooth edges. Of this lesion, there is no fluctuance, no crepitus, no malodor, no drainage, no purulence. There is no probing to bone, no tunneling, no tracking, no undermining. Lateral lesion measures approximately one-point centimeter by 0.5 cm. There is this is a macerated base with positive serous drainage. There is positive probing to the proximal phalanx of the left hallux. There is no undermining, no tracking, no tunneling. Erythema left hallux is significantly reduced from office visit. Erythema now encompasses the left hallux starting at the level of the proximal phalanx extending distally. - Physical Exam Vitals/I&O's: Vital Signs Temp Pulse Resp BP Pulse Ox 97.6 F L 63 18 153/70 H 100 07/17/19 07:42 07/17/19 07:44 07/17/19 07:42 07/17/19 07:44 07/17/19 07:42 Oxygen Delivery Method Room Air Weight: 113.8 kg Body Mass Index (BMI) 41.8 Intake and Output for Last 24 Hours 07/15/19 07/16/19 07/17/19 23:59 23:59 23:59 Intake Total 3845 / 4295 750 / 750 Output Total 450 / 450 Balance 3395 / 3845 750 / 750 General: Alert, Oriented x3, Cooperative, No apparent distress HEENT: Atraumatic, PERRLA, EOMI, Normocephalic Oral: Moist Mucosa Neck: Supple, No JVD, Negative Carotid Bruits Lungs: Clear to auscultation, Normal air movement, No rhonchi, No wheeze, No rales Cardiovascular: Regular rate, Regular Rhythm, Normal S1, Normal S2 Abdomen: Bowel Sounds Present, Soft, Non Tender, Non-Distended Extremities: Diminished Peripheral Pulses, Edema Skin: Ulcer/ Wound - as described above Neurological: Motor Exam 5/5 strength throughout Psych/Mental Status: Alert and oriented to time, place, person, mood and affect Microbiology Past 72 Hours 07/16/19 11:57 Wound - Toe Gram Stain - Final Laboratory Results 07/16/19 11:50: WBC 8.9, RBC 3.92 L, Hgb 11.0 L, Hct 36.2 L, MCV 92.3, MCH 28.1, MCHC 30.4 L, RDW Std Deviation 47.8 H, RDW Coeff of Suraj 14.0, Plt Count 373, MPV 9.8, Neut % (Auto) Not Reportable, Absolute Neuts (auto) 6.8, Absolute Lymphs (auto) 1.70, Total Counted 100, Neutrophils % (Manual) 76 H, Lymphocytes % (Manual) 12 L, Monocytes % (Manual) 6, Eosinophils % (Manual) 1, Basophils % (Manual) 1, Myelocytes % 1 H, Promyelocytes % 3 H, Diff Path Review Reviewed, Platelet Estimate ADEQUATE, RBC Morphology NORM C+C, ESR 59 H 07/16/19 11:50: PT 16.1 H, INR 1.3, APTT 36.7 H 07/16/19 11:50: Sodium 137, Potassium 4.7, Chloride 106, Carbon Dioxide 25.0, Anion Gap 6, BUN 23 H, Creatinine 2.16 H, Estim Creat Clear Calc 23.73, Est GFR (MDRD) Af Amer 38 L, Est GFR (MDRD) Non-Af 31 L, BUN/Creatinine Ratio 10.6, Glucose 119 H, Calcium 9.3, Total Bilirubin 0.50, AST 37, ALT 31, Alkaline Phosphatase 181 H, C-React Prot Ext Range 52.40 H, Total Protein 8.2, Albumin 2.6 L, Globulin 5.6 H, Albumin/Globulin Ratio 0.5 L 07/16/19 11:50: Lactic Acid 4.2 H* 07/16/19 11:50: Hemoglobin A1c 7.5 H 07/16/19 11:57: S.aureus Protein A PCR POSITIVE H, MRSA (PCR) Negative 07/16/19 16:07: POC Glucose 115 H 07/16/19 16:28: Lactic Acid 0.6 07/16/19 21:32: POC Glucose 195 H 07/17/19 06:18: POC Glucose 150 H 07/17/19 07:35: WBC 7.5, RBC 3.63 L, Hgb 10.3 L, Hct 33.1 L, MCV 91.2, MCH 28.4, MCHC 31.1 L, RDW Std Deviation 46.3 H, RDW Coeff of Suraj 13.6, Plt Count 287, MPV 9.1, Immature Gran % (Auto) 4.400 H, Neut % (Auto) 67.0, Lymph % (Auto) 18.0 L, [place] % (Auto) 9.3, Eos % (Auto) 0.9, Baso % (Auto) 0.4, Absolute Neuts (auto) 5.0, Absolute Lymphs (auto) 1.34, Nucleated RBC % 0 07/17/19 07:35: Sodium 140, Potassium 4.6, Chloride 110 H, Carbon Dioxide 23.0, Anion Gap 7, BUN 25 H, Creatinine 2.06 H, Estim Creat Clear Calc 23.95, Est GFR (MDRD) Af Amer 40 L, Est GFR (MDRD) Non-Af 33 L, BUN/Creatinine Ratio 12.1, Glucose 180 H, Calcium 8.5 Foot X-Ray 07/16/19 11:23 IMPRESSION: Stable examination with the erosions of the distal portion of the distal phalanx of the great toe with overlying soft tissue swelling and ulceration. Lower Extremity MRI 07/16/19 15:28 IMPRESSION: Evidence for inflammation at the first metatarsophalangeal joint and first interphalangeal joint. This could be gout or infectious arthropathy. Erosion and edema surrounding the third proximal and distal phalanges and joints which could be perhaps gouty arthritis or infectious arthritis and osteomyelitis. Additional erosions at the medial cuneiform and proximal end of the first phalanx which could be due to gouty arthritis or infectious arthritis. Additional soft tissue at the fourth proximal interphalangeal joint which could be infectious arthritis or gouty arthritis. In the settings of possible infectious arthritis there is likely also osteomyelitis. ELOY/PVR: Left ELOY by Posterior Tibial Artery is 0.78 Left ELOY by Dorsalis Pedia is 0.88 Current Medications Acetaminophen (Tylenol) 650 mg PO Q6H PRN PRN PRN Reason: Pain Score 1-3/Temp > 100.7 F Glipizide (Glucotrol) 10 mg PO BID@0800,1700 [facility] Last Admin: 07/17/19 07:44 Dose: 10 mg Documented by: Glucagon () 1 mg IM .X1 PRN PRN Reason: Hypoglycemia Hydralazine HCl (Apresoline Iv) 10 mg IV Q8H PRN PRN PRN Reason: for SBP>160 Piperacillin Sod/Tazobactam (Sod 3.375 gm/ Sodium Chloride) 50 mls @ 12.5 mls/hr IV Q8 [facility] Last Infusion: 07/17/19 09:22 Dose: Infused Documented by: Dextrose (Dextrose 10%-Water) 250 mls @ 999 mls/hr IV .Q16M PRN; Protocol PRN Reason: HYPOGLYCEMIA Sodium Chloride () 1,000 mls @ 100 mls/hr IV .Q10H [facility] Vancomycin HCl 1,250 mg/ (Sodium Chloride) 275 mls @ 167 mls/hr IV Q24H [facility] Vancomycin IV Pharmacy to Dose (1 ea/ Sodium Chloride) 500 mls @ 250 mls/hr IV X1 PRN; Protocol PRN Reason: Rx to Dose Insulin Human Lispro (Humalog Kwikpen (Bkc)) 0 unit SC TIDAC [facility]; Protocol Last Admin: 07/17/19 06:43 Dose: 1 units Documented by: Metoprolol Tartrate (Lopressor (Beta Deborah)) 25 mg PO DAILY@1999 [facility] Last Admin: 07/16/19 20:07 Dose: 25 mg Documented by: Metoprolol Tartrate (Lopressor (Beta Deborah)) 50 mg PO DAILY@0800 [facility] Last Admin: 07/17/19 07:44 Dose: 50 mg Documented by: Nitroglycerin (Nitrostat) 0.4 mg SUBLINGUAL Q5M PRN PRN Reason: CARDIAC/CHEST PAIN Pantoprazole Sodium (Protonix) 20 mg PO DAILY [facility] Last Admin: 07/17/19 10:13 Dose: 20 mg Documented by: Sodium Chloride () 10 - 40 ml IV UD PRN PRN Reason: SALINE FLUSH Last Admin: 07/16/19 21:34 Dose: 10 ml Documented by: Timolol Maleate (Timoptic) 1 drop EACH EYE BID [facility] Last Admin: 07/17/19 10:13 Dose: 1 drop Documented by: Tramadol HCl (Ultram) 50 mg PO Q6H PRN PRN PRN Reason: Pain Score 6-10/10 Assessment/Plan All Active Problems 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 MRI, x-ray, and ELOY/PVR reviewed with patient in detail. I discussed with the patient his options for treating the infection in his left big toe. Due to the infection in the bone is present, I recommend surgical amputation of the left big toe. Conservative therapy would include wound care along with daily dressing changes and a long-term course of IV antibiotics. The risks, benefits, possible outcomes, possible complications of both types of treatment plans were discussed with the patient. All the patient's questions were answered to his satisfaction and all of his concerns were addressed. No guarantees were given to either treatment option. Patient and displayed verbal understanding to this. At this time, patient is leaning toward surgical intervention, but would like some time to think about it. I discussed with the patient that we will continue the IV antibiotics to monorail helper in the controlling of the infection. The IV antibiotics have worked and significant reduction in erythema and edema have been obtained since the start of the IV antibiotics. At this time, I recommend a consultation to vascular surgery. A consult has been placed to Dr. Facundo Menard. I have personally spoke with Dr. Menard over the phone, and discussed the patient at length. I discussed his MRI results, radiographic results, and ELOY/PVR. Dr. Menard agrees that the patient would benefit from an angiogram. Dr. Menard states that he will perform the angiogram on today, July 21. After speaking with Dr. Menard, he states that there should not be a problem with me performing the amputation prior to the angiogram. After discussions were had with him, I feel that performing the amputation as close to the date of the angiogram would be the most beneficial to the patient. Thus, I would like to perform the amputation on July 20. This will likely be performed in the afternoon. This is still pending discussion with the patient as well. I would like to have the patient n.p.o. at 12:01am on July 20 for left foot amputation. Dr. Menard would like the patient to be n.p.o. at 12:01 AM on July 21 for angiogram. At this time I recommend continuation of IV antibiotics. I recommend daily dressing changes with Betadine soaked gauze, and a dry sterile dressing consisting of 4 x 4 gauze wrapped with Kerlix. The patient may be weightbearing as tolerated from my point of view. I will continue to follow the patient and update accordingly. I will next see the patient on July 19 for further discussion about surgery. Thank you very much for the consultation and allowing me to take part in care of your patient. Code Visit Office Visits / Consults: [id number] IP Consult L3
[2019-07-17 11:46] LABS: Bedside Glucose 315 mg/dL (70-110)
[2019-07-17] MEDS: traMADol 50 MG Tablet PO (12:42)
[2019-07-17] MEDS: 0.9% Normal Saline 1,000 ML 100 ML IV (12:44)
[2019-07-17] MEDS: Acetaminophen 325 MG Tablet 650 MG PO (14:51)
[2019-07-17 15:42] VITALS: BP 147/66; PULSE 65; RESP 18; TEMP 37; O2SAT 100; O2SAT 98
[2019-07-17 17:21] LABS: Bedside Glucose 188 mg/dL (70-110)
[2019-07-17 21:31] VITALS: PULSE 65
[2019-07-17] MEDS: Metoprolol Tartrate 25 MG Tablet PO (21:31)
[2019-07-17 21:35] VITALS: BP 128/48; PULSE 65; RESP 16; TEMP 36.6; O2SAT 97
[2019-07-17 23:11] LABS: Bedside Glucose 171 mg/dL (70-110)
[2019-07-18] VITALS (8 sets, daily range): BP systolic 134–162; BP diastolic 57–70; PULSE 57–67; RESP 16–18; TEMP 36.4–36.9; O2SAT 95–100
[2019-07-18] MEDS: 0.9% Normal Saline 1,000 ML 100 ML IV ×2 (03:24→13:31)
[2019-07-18 06:31] LABS: Bedside Glucose 143 mg/dL (70-110)
[2019-07-18] MEDS: Metoprolol Tartrate 50 MG Tablet PO (07:35)
[2019-07-18] MEDS: traMADol 50 MG Tablet PO (07:35)
[2019-07-18] MEDS: glipiZIDE 10 MG Tablet PO ×2 (07:36→17:13)
--- NOTE | 2019-07-18 09:50 | PN_ITS ---
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 Patient seen and examined. No acute events overnight. Today, he denied any complaints. Left foot pain is getting better. Denies fever chills. His vital signs are stable. - Physical Exam Vitals/I&O's: Vital Signs Temp Pulse Resp BP Pulse Ox 97.6 F L 64 16 162/62 H 100 07/18/19 03:31 07/18/19 07:35 07/18/19 03:31 07/18/19 07:35 07/18/19 03:31 Oxygen Delivery Method Room Air Weight: 250 lb 14.177 oz Body Mass Index (BMI) 41.8 Intake and Output for Last 24 Hours 07/16/19 07/17/19 07/18/19 23:59 23:59 23:59 Intake Total 3845 / 4295 2510 / 2510 927.42 / 927.42 Output Total 450 / 450 2025 / 2025 1000 / 1000 Balance 3395 / 3845 485 / 485 -72.58 / -72.58 General: Alert, Oriented x3, Cooperative, No apparent distress HEENT: Atraumatic, PERRLA, EOMI, Normocephalic Oral: Moist Mucosa, No Gingival or Mucosal Lesions/ Ulcerations Neck: Supple, No JVD, Negative Carotid Bruits Lungs: Clear to auscultation, Normal air movement, No rhonchi, No wheeze, No rales Cardiovascular: Regular rate, Regular Rhythm, Normal S1, Normal S2, No murmurs, PMI Normal Abdomen: Bowel Sounds Present, Soft, Non Tender, Non-Distended, No Hepato- splenomegaly Extremities: No clubbing, No cyanosis, No edema, - - Left foot dressed. Skin: No rashes, Ulcer/ Wound Lymphatic: No Cervical, Supraclavicular, or Inguinal Adenopathy Neurological: Cranial nerves II-XII grossly intact, Neuro grossly intact Psych/Mental Status: Normal Affect, Appropriate, Alert and oriented to time, place, person, mood and affect Microbiology Past 72 Hours 07/16/19 11:57 Wound - Toe Gram Stain - Final 07/16/19 11:57 Wound - Toe Wound Culture - Final Staphylococcus aureus Laboratory Results 07/17/19 11:42: POC Glucose 315 H 07/17/19 17:05: POC Glucose 188 H 07/17/19 21:49: POC Glucose 171 H 07/18/19 06:28: POC Glucose 143 H Current Medications Acetaminophen (Tylenol) 650 mg PO Q6H PRN PRN PRN Reason: Pain Score 1-3/Temp > 100.7 F Last Admin: 07/17/19 14:51 Dose: 650 mg Documented by: Glipizide (Glucotrol) 10 mg PO BID@0800,1700 [facility] Last Admin: 07/18/19 07:36 Dose: 10 mg Documented by: Glucagon () 1 mg IM .X1 PRN PRN Reason: Hypoglycemia Hydralazine HCl (Apresoline Iv) 10 mg IV Q8H PRN PRN PRN Reason: for SBP>160 Piperacillin Sod/Tazobactam (Sod 3.375 gm/ Sodium Chloride) 50 mls @ 12.5 mls/hr IV Q8 [facility] Last Admin: 07/18/19 05:06 Dose: 12.5 mls/hr Documented by: Dextrose (Dextrose 10%-Water) 250 mls @ 999 mls/hr IV .Q16M PRN; Protocol PRN Reason: HYPOGLYCEMIA Sodium Chloride () 1,000 mls @ 100 mls/hr IV .Q10H [facility] Last Admin: 07/18/19 03:24 Dose: 100 mls/hr Documented by: Vancomycin HCl 1,250 mg/ (Sodium Chloride) 275 mls @ 167 mls/hr IV Q24H [facility] Last Infusion: 07/17/19 14:22 Dose: Infused Documented by: Vancomycin IV Pharmacy to Dose (1 ea/ Sodium Chloride) 500 mls @ 250 mls/hr IV X1 PRN; Protocol PRN Reason: Rx to Dose Sodium Chloride () 250 mls @ 15 mls/hr IV .[id number] PRN PRN Reason: Saline Flush Last Infusion: 07/18/19 03:32 Dose: 0 mls/hr Documented by: Insulin Human Lispro (Humalog Kwikpen (Bkc)) 0 unit SC TIDAC [facility]; Protocol Last Admin: 07/18/19 06:31 Dose: Not Given Documented by: Metoprolol Tartrate (Lopressor (Beta Deborah)) 25 mg PO DAILY@2000 [facility] Last Admin: 07/17/19 21:31 Dose: 25 mg Documented by: Metoprolol Tartrate (Lopressor (Beta Deborah)) 50 mg PO DAILY@0800 [facility] Last Admin: 07/18/19 07:35 Dose: 50 mg Documented by: Nitroglycerin (Nitrostat) 0.4 mg SUBLINGUAL Q5M PRN PRN Reason: CARDIAC/CHEST PAIN Pantoprazole Sodium (Protonix) 20 mg PO DAILY [facility] Last Admin: 07/17/19 10:13 Dose: 20 mg Documented by: Sodium Chloride () 10 - 40 ml IV UD PRN PRN Reason: SALINE FLUSH Last Admin: 07/16/19 21:34 Dose: 10 ml Documented by: Sodium Chloride () 10 - 40 ml IV UD PRN PRN Reason: SALINE FLUSH Timolol Maleate (Timoptic) 1 drop EACH EYE BID [facility] Last Admin: 07/17/19 21:32 Dose: 1 drop Documented by: Tramadol HCl (Ultram) 100 mg PO X1 ONE Stop: 07/18/19 09:43 Tramadol HCl (Ultram) 50 mg PO DAILY [facility] Tramadol HCl (Ultram) 150 mg PO DAILY [facility] Medical Necessity - Tobacco Use Smoking Status: Former smoker Tobacco Use: Cigarettes Assessment/Plan All Active Problems 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 Parker who was a voting machine mechanic for left big toe ulcer/infected wound and cellulitis of the left forefoot and he was admitted for evaluation and treatment. #1 left forefoot cellulitis/infected diabetic left big toe ulcer/left big toe osteomyelitis: He is on IV Zosyn and vancomycin. He is afebrile, no leukoc ytosis, vital signs are stable. MRI of the left foot reviewed as above. MRSA screen was negative but patient history of MRSA infection in the past. Wound culture revealed MSSA. Podiatry medicine evaluated the patient and plan for surgery on Friday. Plan: DC vancomycin, continue IV Zosyn. #2 lactic acidosis: With stable vital signs. Lactic acid was 4.2, came down to 0.6 with IV fluids. Patient has been afebrile. He is on IV Zosyn as above. #3 type 2 diabetes mellitus: Seemed to be under fair control. Hemoglobin A1c was 7.5%. Continue glipizide and sliding scale. #4 peripheral vascular disease: Ankle-brachial index performed, revealed left and right moderately severe arterial occlusive disease. Vascular surgery consulted, plan for angiogram on July 21. #5 CAD status post stents: Stable, no complaints. Continue metoprolol. Plavix held because patient is going for surgery. #6 hypertension: Blood pressure stable, continue metoprolol, continue IV adenosine PRN #7 stage III chronic kidney disease: Baseline creatinine has been around 1.5- 1.8, admission creatinine is 2.1, came down to 2.06 today. Patient is on IV fluids, plan to repeat BMP tomorrow morning. #8 history of pulmonary embolism: Patient is on Eliquis. This was held planning for surgery. #9 GERD: Continue Protonix. #10 DVT prophylaxis: Subcu heparin. This note was generated with [employer] dictation software. It may contain incorrect words, spelling, and punctuation that were not noted in checking the note before signing. Code Visit Inpatient E&M: 79207 Subs Hosp L2
[2019-07-18] MEDS: traMADol 50 MG Tablet 100 MG PO (10:04)
[2019-07-18] MEDS: Timolol 0.5% 5ML OPTH.BTL 1 DRP EACH EYE ×2 (10:05→21:07)
[2019-07-18] MEDS: Pantoprazole Sodium 20 MG Tablet PO (10:05)
[2019-07-18] MEDS: Insulin Lispro 100 UNIT/ML INSULN.PEN SC ×2 (12:25→17:12)
[2019-07-18 12:31] LABS: Bedside Glucose 371 mg/dL (70-110)
[2019-07-18 16:11] LABS: Bedside Glucose 270 mg/dL (70-110)
[2019-07-18] MEDS: Metoprolol Tartrate 25 MG Tablet PO (21:07)
[2019-07-18] MEDS: Cefazolin 1 GM/50 ML BAG IV (21:17)
[2019-07-18 21:56] LABS: Bedside Glucose 181 mg/dL (70-110)
[2019-07-19] VITALS (7 sets, daily range): BP systolic 134–150; BP diastolic 51–95; PULSE 62–70; RESP 16–18; TEMP 36.4–37.3; O2SAT 95–100
[2019-07-19] MEDS: 0.9% Normal Saline 1,000 ML 75 ML IV (01:37)
[2019-07-19] MEDS: traMADol 50 MG Tablet 150 MG PO (05:49)
[2019-07-19] MEDS: Cefazolin 1 GM/50 ML BAG IV ×3 (05:49→22:02)
[2019-07-19 06:04] LABS: Absolute Neutrophil Count 4.7 X10^3/uL (2.0-7.7); Basophil# 0.03 X10^3/uL; Basophil% 0.4 % (0-1); Eosinophil# 0.13 X10^3/uL; Eosinophils% 1.9 % (0-5); Hematocrit 32.3 % (40-54); Lymphocyte % 17.5 % (19-41); Mean Corpuscular Hgb 28.2 pg (27.0-32.0); Mean Corpuscular Volume 91.2 fL (80-94); Mean Platelet Vol. 9.4 fl (6.2-12.0); Monocyte# 0.61 X10^3/uL; Monocyte% 8.9 % (0-10); NRBC Flagged by Analyzer 0 % (0-5); Neutrophil # 4.67 X10^3/uL (2.7-7.7); Neutrophil % 68.4 % (47-70); Platelet Count 282 K/mm3 (150-450); RBC Distribution Width CV 13.7 % (11.6-14.6); Red Blood Count 3.54 M/mm3 (4.6-6.2); White Blood Count 6.8 K/mm3 (4.4-11.0)
[2019-07-19 06:18] LABS: Anion Gap 5 (5-15); BUN 15 mg/dL (7-18); BUN/Creat Ratio 11.2 RATIO (10-20); Calcium,Total 8.4 mg/dL (8.5-10.1); Chloride 113 mmol/L (98-107); Creatinine, Serum 1.34 mg/dL (0.70-1.30); EST Glomerular Filtration Rate 55 mL/min (>60); Est Glom Filt Rate - Afr Amer 66 mL/min (>60); Estimated Creatinine Clearance 38.25 ml/min; Glucose 189 mg/dL (74-106); Potassium 4.2 mmol/L (3.5-5.1); Sodium Level 141 mmol/L (136-145)
[2019-07-19] MEDS: Insulin Lispro 100 UNIT/ML INSULN.PEN SC ×3 (06:23→16:09)
[2019-07-19 06:35] LABS: Bedside Glucose 207 mg/dL (70-110)
[2019-07-19] MEDS: glipiZIDE 10 MG Tablet PO ×2 (08:16→16:09)
[2019-07-19] MEDS: Pantoprazole Sodium 20 MG Tablet PO (08:16)
[2019-07-19] MEDS: Metoprolol Tartrate 50 MG Tablet PO (08:17)
--- NOTE | 2019-07-19 08:39 | PCM.PROGNOTE ---
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 Patient seen and examined. No acute events overnight. He denies any complaints. Denied left foot pain. Denies fever chills. His vital signs are stable. - Physical Exam Vitals/I&O's: Vital Signs Temp Pulse Resp BP Pulse Ox 99.2 F H 68 18 150/95 H 95 07/19/19 08:14 07/19/19 08:17 07/19/19 08:14 07/19/19 08:14 07/19/19 08:14 Oxygen Delivery Method Room Air Weight: 250 lb 14.177 oz Body Mass Index (BMI) 41.8 Intake and Output for Last 24 Hours 07/17/19 07/18/19 07/19/19 23:59 23:59 23:59 Intake Total 2510 / 2510 4879.09 / 4879.09 837.08 / 837.08 Output Total 2024 / 2024 2550 / 2550 800 / 800 Balance 485 / 485 2329.09 / 2329.09 37.08 / 37.08 General: Alert, Oriented x3, Cooperative, No apparent distress HEENT: Atraumatic, PERRLA, EOMI, Normocephalic Oral: Moist Mucosa, No Gingival or Mucosal Lesions/ Ulcerations Neck: Supple, No JVD, Negative Carotid Bruits, Trachea Midline, Thyroid Normal Size and Texture Lungs: Clear to auscultation, Normal air movement, No rhonchi, No wheeze, No rales Cardiovascular: Regular rate, Regular Rhythm, Normal S1, Normal S2, PMI Normal Abdomen: Bowel Sounds Present, Soft, Non Tender, Non-Distended, No Hepato-splenomegaly Extremities: No clubbing, No cyanosis, Edema - Trace edema. Skin: No rashes, Ulcer/ Wound - Left foot dressed. Lymphatic: No Cervical, Supraclavicular, or Inguinal Adenopathy Neurological: Cranial nerves II-XII grossly intact, Neuro grossly intact Psych/Mental Status: Normal Affect, Appropriate, Alert and oriented to time, place, person, mood and affect Microbiology Past 72 Hours 07/16/19 12:06 Blood Culture (Wb) - Left Wrist Blood Culture - Preliminary No growth in 48 hours. 07/16/19 11:30 Blood Culture (Wb) - Arm Right Blood Culture - Preliminary No growth in 48 hours. 07/16/19 11:57 Wound - Toe Gram Stain - Final 07/16/19 11:57 Wound - Toe Wound Culture - Final Staphylococcus aureus Laboratory Results 07/18/19 12:23: POC Glucose 371 H 07/18/19 16:05: POC Glucose 270 H 07/18/19 21:10: POC Glucose 181 H 07/19/19 05:30: WBC 6.8, RBC 3.54 L, Hgb 10.0 L, Hct 32.3 L, MCV 91.2, MCH 28.2, MCHC 31.0 L, RDW Std Deviation 46.0 H, RDW Coeff of Suraj 13.7, Plt Count 282, MPV 9.4, Immature Gran % (Auto) 2.900 H, Neut % (Auto) 68.4, Lymph % (Auto) 17.5 L, [place] % (Auto) 8.9, Eos % (Auto) 1.9, Baso % (Auto) 0.4, Absolute Neuts (auto) 4.7, Absolute Lymphs (auto) 1.20, Nucleated RBC % 0 07/19/19 05:30: Sodium 141, Potassium 4.2, Chloride 113 H, Carbon Dioxide 23.0, Anion Gap 5, BUN 15, Creatinine 1.34 H, Estim Creat Clear Calc 38.25, Est GFR (MDRD) Af Amer 66, Est GFR (MDRD) Non-Af 55 L, BUN/Creatinine Ratio 11.2, Glucose 189 H, Calcium 8.4 L 07/19/19 06:22: POC Glucose 207 H Current Medications Acetaminophen (Tylenol) 650 mg PO Q6H PRN PRN PRN Reason: Pain Score 1-3/Temp > 100.7 F Last Admin: 07/17/19 14:51 Dose: 650 mg Documented by: Glipizide (Glucotrol) 10 mg PO BID@0800,1700 [facility] Last Admin: 07/19/19 08:16 Dose: 10 mg Documented by: Glucagon () 1 mg IM .X1 PRN PRN Reason: Hypoglycemia Hydralazine HCl (Apresoline Iv) 10 mg IV Q8H PRN PRN PRN Reason: for SBP>160 Dextrose (Dextrose 10%-Water) 250 mls @ 999 mls/hr IV .Q16M PRN; Protocol PRN Reason: HYPOGLYCEMIA Vancomycin HCl 1,250 mg/ (Sodium Chloride) 275 mls @ 167 mls/hr IV Q24H [facility] Last Infusion: 07/18/19 16:56 Dose: Infused Documented by: Sodium Chloride () 250 mls @ 15 mls/hr IV .[id number] PRN PRN Reason: Saline Flush Last Infusion: 07/18/19 21:17 Dose: Infused Documented by: Cefazolin Sodium () 1 gm in 50 mls @ 100 mls/hr IV Q8 [facility] Last Infusion: 07/19/19 06:19 Dose: Infused Documented by: Insulin Human Lispro (Humalog Kwikpen (Bkc)) 0 unit SC TIDAC [facility]; Protocol Last Admin: 07/19/19 06:23 Dose: 2 units Documented by: Metoprolol Tartrate (Lopressor (Beta Deborah)) 25 mg PO DAILY@2000 [facility] Last Admin: 07/18/19 21:07 Dose: 25 mg Documented by: Metoprolol Tartrate (Lopressor (Beta Deborah)) 50 mg PO DAILY@0800 [facility] Last Admin: 07/19/19 08:17 Dose: 50 mg Documented by: Nitroglycerin (Nitrostat) 0.4 mg SUBLINGUAL Q5M PRN PRN Reason: CARDIAC/CHEST PAIN Pantoprazole Sodium (Protonix) 20 mg PO DAILY [facility] Last Admin: 07/19/19 08:16 Dose: 20 mg Documented by: Sodium Chloride () 10 - 40 ml IV UD PRN PRN Reason: SALINE FLUSH Last Admin: 07/16/19 21:34 Dose: 10 ml Documented by: Sodium Chloride () 10 - 40 ml IV UD PRN PRN Reason: SALINE FLUSH Timolol Maleate (Timoptic) 1 drop EACH EYE BID [facility] Last Admin: 07/18/19 21:07 Dose: 1 drop Documented by: Tramadol HCl (Ultram) 50 mg PO SUPPER [facility] Last Admin: 07/18/19 17:13 Dose: Not Given Documented by: Tramadol HCl (Ultram) 150 mg PO 0600 [facility] Last Admin: 07/19/19 05:49 Dose: 150 mg Documented by: Medical Necessity - Tobacco Use Smoking Status: Former smoker Tobacco Use: Cigarettes Assessment/Plan All Active Problems 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 #1 left forefoot cellulitis/infected diabetic left big toe ulcer/left big toe osteomyelitis: She is on IV cefazolin. Will discontinue IV vancomycin. Vital signs are stable, afebrile. No leukocytosis. Wound culture revealed MSSA. Blood cultures were no growth in 48 hours. Podiatry medicine evaluated the patient and plan for surgery tomorrow. Plan to continue IV cefazolin, DC IV vancomycin. #2 lactic acidosis: With stable vital signs. Lactic acid was 4.2, came down to 0.6 with IV fluids. Patient has been afebrile. He is on IV cefazolin as above. #3 type 2 diabetes mellitus: Seemed to be under fair control. Hemoglobin A1c was 7.5%. Continue glipizide and sliding scale. #4 peripheral vascular disease: Ankle-brachial index performed, revealed left and right moderately severe arterial occlusive disease. Vascular surgery consulted, plan for angiogram on July 21. #5 CAD status post stents: Stable, no complaints. Continue metoprolol. Plavix held because patient is going for surgery. #6 hypertension: Blood pressure stable, continue metoprolol, continue IV hydralazine PRN #7 stage III chronic kidney disease: Baseline creatinine has been around 1.5-1.8, admission creatinine is 2.1, came down to 1.34 with IV fluids, improved. #8 history of pulmonary embolism: Patient is on Eliquis. This was held planning for surgery. #9 GERD: Continue Protonix. #10 DVT prophylaxis: Subcu heparin. This note was generated with [employer] dictation software. It may contain incorrect words, spelling, and punctuation that were not noted in checking the note before signing. Code Visit Inpatient E&M: 17338 Subs Hosp L2
--- NOTE | 2019-07-19 09:46 | NURSING ---
wound photo: left great toe
--- NOTE | 2019-07-19 09:48 | NURSING ---
wound photo: left great toe
[2019-07-19] MEDS: Timolol 0.5% 5ML OPTH.BTL 1 DRP EACH EYE ×2 (10:51→21:21)
--- NOTE | 2019-07-19 11:22 | PCM.PN.ORT ---
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 Patient denies acute overnight events. Dressing on left foot was changed today by the nursing staff with Betadine and a dry sterile dressing. Patient states that there is no pain in his left foot at this time. Patient denies acute overnight events. No acute overnight events reported by nursing staff. Patient states that he is thought about the surgery and is agreeable to have the amputation performed tomorrow. Patient denies fever, chills, nausea, vomiting, shortness of breath, chest pain. Patient denies left calf pain. Objective: Left Lower extremity physical exam: Vascular: Reveals nonpalpable dorsalis pedis and posterior tibial pulse. Temperature gradient is within normal limits. Capillary fill time is delayed to all digits of the left foot. Minimal nonpitting edema noted of the left hallux. Neurological: Gross and protective sensation absent to the left lower extremity up to the midportion of the calf. Musculoskeletal: No gross abnormalities noted. Muscle strength is 5 out of 5 the left lower extremity. Dermatological: Ulcerations noted on the distal, medial, and lateral aspect of the left hallux. Distal lesion measures approximately 2.5 cm x 1.5 cm x 1 cm. This has a fibronecrotic base and rounded smooth edges. Of this lesion, there is no fluctuance, no crepitus, but positive malodor. There is positive serous drainage. There is positive probing to the distal phalanx. There is positive undermining plantarly approximately 1.5 cm to the proximal phalanx. Medial lesion measures approximately 0.5 cm x 0.5 cm x 0.2 cm with a fibronecrotic base and rounded smooth edges. Of this lesion, there is no fluctuance, no crepitus, no malodor, no drainage, no purulence. There is no probing to bone, no tunneling, no tracking, no undermining. Lateral lesion measures approximately one-point centimeter by 0.5 cm. There is this is a macerated base with positive serous drainage. There is positive probing to the proximal phalanx of the left hallux. There is no undermining, no tracking, no tunneling. Erythema left hallux is significantly reduced from office visit. Erythema now encompasses the left hallux starting at the level of the proximal phalanx extending distally, minimally reduced from previous assessment. - Physical Exam Vitals/I&O's: Vital Signs Temp Pulse Resp BP Pulse Ox 99.2 F H 70 18 150/95 H 95 07/19/19 08:14 07/19/19 10:43 07/19/19 08:14 07/19/19 08:14 07/19/19 08:14 Oxygen Delivery Method Room Air Weight: 113.8 kg Body Mass Index (BMI) 41.8 Intake and Output for Last 24 Hours 07/17/19 07/18/19 07/19/19 23:59 23:59 23:59 Intake Total 2510 / 2510 4879.09 / 4879.09 837.08 / 837.08 Output Total 2024 / 2024 2550 / 2550 1000 / 1000 Balance 485 / 485 2329.09 / 2329.09 -162.92 / -162.92 General: Alert, Oriented x3, Cooperative, No apparent distress HEENT: Atraumatic, PERRLA Oral: Moist Mucosa Neck: Supple, No JVD Lungs: Clear to auscultation, Normal air movement, No rhonchi, No wheeze, No rales Cardiovascular: Regular rate, Regular Rhythm, Normal S1, Normal S2 Abdomen: Bowel Sounds Present, Soft, Non Tender, Non-Distended Skin: Ulcer/ Wound - as described Musculoskeletal: No Tenderness to Palpation of Joints or Extremities Psych/Mental Status: Alert and oriented to time, place, person, mood and affect Microbiology Past 72 Hours 07/16/19 12:06 Blood Culture (Wb) - Left Wrist Blood Culture - Preliminary No growth in 48 hours. 07/16/19 11:30 Blood Culture (Wb) - Arm Right Blood Culture - Preliminary No growth in 48 hours. 07/16/19 11:57 Wound - Toe Gram Stain - Final 07/16/19 11:57 Wound - Toe Wound Culture - Final Staphylococcus aureus Laboratory Results 07/18/19 12:23: POC Glucose 371 H 07/18/19 16:05: POC Glucose 270 H 07/18/19 21:10: POC Glucose 181 H 07/19/19 05:30: WBC 6.8, RBC 3.54 L, Hgb 10.0 L, Hct 32.3 L, MCV 91.2, MCH 28.2, MCHC 31.0 L, RDW Std Deviation 46.0 H, RDW Coeff of Suraj 13.7, Plt Count 282, MPV 9.4, Immature Gran % (Auto) 2.900 H, Neut % (Auto) 68.4, Lymph % (Auto) 17.5 L, [place] % (Auto) 8.9, Eos % (Auto) 1.9, Baso % (Auto) 0.4, Absolute Neuts (auto) 4.7, Absolute Lymphs (auto) 1.20, Nucleated RBC % 0 07/19/19 05:30: Sodium 141, Potassium 4.2, Chloride 113 H, Carbon Dioxide 23.0, Anion Gap 5, BUN 15, Creatinine 1.34 H, Estim Creat Clear Calc 38.25, Est GFR (MDRD) Af Amer 66, Est GFR (MDRD) Non-Af 55 L, BUN/Creatinine Ratio 11.2, Glucose 189 H, Calcium 8.4 L 07/19/19 06:22: POC Glucose 207 H Foot X-Ray 07/16/19 11:23 IMPRESSION: Stable examination with the erosions of the distal portion of the distal phalanx of the great toe with overlying soft tissue swelling and ulceration. Lower Extremity MRI 07/16/19 15:28 IMPRESSION: Evidence for inflammation at the first metatarsophalangeal joint and first interphalangeal joint. This could be gout or infectious arthropathy. Erosion and edema surrounding the third proximal and distal phalanges and joints which could be perhaps gouty arthritis or infectious arthritis and osteomyelitis. Additional erosions at the medial cuneiform and proximal end of the first phalanx which could be due to gouty arthritis or infectious arthritis. Additional soft tissue at the fourth proximal interphalangeal joint which could be infectious arthritis or gouty arthritis. In the settings of possible infectious arthritis there is likely also osteomyelitis. ELOY/PVR: Left ELOY by Posterior Tibial Artery is 0.78 Left ELOY by Dorsalis Pedia is 0.88 Current Medications Acetaminophen (Tylenol) 650 mg PO Q6H PRN PRN PRN Reason: Pain Score 1-3/Temp > 100.7 F Last Admin: 07/17/19 14:51 Dose: 650 mg Documented by: Glipizide (Glucotrol) 10 mg PO BID@0800,1700 CAMILO Last Admin: 07/19/19 08:16 Dose: 10 mg Documented by: Glucagon () 1 mg IM .X1 PRN PRN Reason: Hypoglycemia Hydralazine HCl (Apresoline Iv) 10 mg IV Q8H PRN PRN PRN Reason: for SBP>160 Dextrose (Dextrose 10%-Water) 250 mls @ 999 mls/hr IV .Q16M PRN; Protocol PRN Reason: HYPOGLYCEMIA Sodium Chloride () 250 mls @ 15 mls/hr IV .[id number] PRN PRN Reason: Saline Flush Last Infusion: 07/18/19 21:17 Dose: Infused Documented by: Cefazolin Sodium () 1 gm in 50 mls @ 100 mls/hr IV Q8 [facility] Last Infusion: 07/19/19 06:19 Dose: Infused Documented by: Insulin Human Lispro (Humalog Kwikpen (Bkc)) 0 unit SC TIDAC [facility]; Protocol Last Admin: 07/19/19 11:16 Dose: 4 units Documented by: Metoprolol Tartrate (Lopressor (Beta Deborah)) 25 mg PO DAILY@2000 [facility] Last Admin: 07/18/19 21:07 Dose: 25 mg Documented by: Metoprolol Tartrate (Lopressor (Beta Deborah)) 50 mg PO DAILY@0800 [facility] Last Admin: 07/19/19 08:17 Dose: 50 mg Documented by: Nitroglycerin (Nitrostat) 0.4 mg SUBLINGUAL Q5M PRN PRN Reason: CARDIAC/CHEST PAIN Pantoprazole Sodium (Protonix) 20 mg PO DAILY [facility] Last Admin: 07/19/19 08:16 Dose: 20 mg Documented by: Sodium Chloride () 10 - 40 ml IV UD PRN PRN Reason: SALINE FLUSH Last Admin: 07/16/19 21:34 Dose: 10 ml Documented by: Sodium Chloride () 10 - 40 ml IV UD PRN PRN Reason: SALINE FLUSH Timolol Maleate (Timoptic) 1 drop EACH EYE BID [facility] Last Admin: 07/19/19 10:51 Dose: 1 drop Documented by: Tramadol HCl (Ultram) 50 mg PO SUPPER [facility] Last Admin: 07/18/19 17:13 Dose: Not Given Documented by: Tramadol HCl (Ultram) 150 mg PO 0600 [facility] Last Admin: 07/19/19 05:49 Dose: 150 mg Documented by: Medical Necessity - Tobacco Use Smoking Status: Former smoker Tobacco Use: Cigarettes Assessment/Plan All Active Problems 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 MRI, x-ray, and ELOY/PVR reviewed with patient in detail again at this time. I discussed with the patient his options for treating the infection in his left big toe. Due to the infection in the bone is present, I recommend surgical amputation of the left big toe, specifically a left foot partial first ray amputation. Conservative therapy would include wound care along with daily dressing changes and a long-term course of IV antibiotics. The risks, benefits, possible outcomes, possible complications of both types of treatment plans were discussed with the patient. All the patient's questions were answered to his satisfaction and all of his concerns were addressed. No guarantees were given to either treatment option. Patient displayed verbal understanding to this and wants to proceed with surgical intervention at this time. Patient is scheduled for left foot partial first ray amputation tomorrow, July 20, 2019 at 12:30 PM. Patient will have angiogram performed by Dr. Menard on Sunday, July 21, 2019. After speaking with Dr. Menard, he states that there should not be a problem with me performing the amputation prior to the angiogram. After discussions were had with him, I feel that performing the amputation as close to the date of the angiogram would be the most beneficial to the patient. Dr. Menard would like the patient to be n.p.o. at 12:01 AM on July 21 for angiogram. At this time I recommend continuation of IV antibiotics. I recommend daily dressing changes with Betadine soaked gauze, and a dry sterile dressing consisting of 4 x 4 gauze wrapped with Kerlix. After surgery, no dressing changes will be performed anymore. The patient may be weightbearing as tolerated from my point of view. After the surgery, patient will be nonweight bearing to left foot with assistive devices. Patient will need physical therapy evaluation after surgery. I will continue to follow the patient and update accordingly. Surgery to be performed tomorrow, 07/20/2019, at 12:30pm. Code Visit Inpatient E&M: 70182 Subs Hosp L2
--- NOTE | 2019-07-19 11:40 | CASEMGMT ---
SEVERIANO ROMAN Face to Face with patient for initial transition planning/care coordination assessment. RN JESSIE introduced self and role at [facility]. Patient lying in bed, alert and oriented. Patient willing to participate in assessment and is able to answer all questions appropriately. Care providers, pharmacy, and demographics verified. Patient wishes to discharge home, will monitor for need for HHC. Patient states he has no further needs or concerns at this time. CM to follow for discharge planning needs that may arise. PCP: Yefir Specialists: Keith podiatry; Baron shingle packer; Trevon, endocrinology Preferred Pharmacy: [facility] Insurance: Online-OR Prescription Benefit: yes Living Will/HPOA: none LNOK: Living Arrangements: Patient lives with in 2 story home. Family is setting up bed in dining room. 8 steps to enter the home. Transportation: family DME/HHC: Patient has cane, walker, and crutches at home. Disposition Plan: Patient to discharge home with family support and follow-up plans in place. Will monitor for HHC Vane LINARES, RN, CM
[2019-07-19] MEDS: traMADol 50 MG Tablet PO (13:01)
--- NOTE | 2019-07-19 13:32 | NURSING ---
primary nurse notified of change in prn dose timing
[2019-07-19 13:36] LABS: Vancomycin, Trough Level 14.7 ug/mL (5.0-15.0)
--- NOTE | 2019-07-19 14:52 | CHAPLAIN ---
Type of Pastoral Visit _x__ Initial Visit ___ Follow-up Visit ___ On-call Visit ___ General Patient Visit ___ Spiritual Assessment ___ Family Conference ___ Bereavement ___ Rapid Response ___ Code Blue ___ Other (describe below) Pastoral Care Referral From _x__ Patient ___ Family ___ Nurse ___ Physician ___ Astrochemist ___ Service Center Supervisor ___ Other (describe below) Sacrament/Intervention _x__ Active listening ___ Anointing ___ Muslim ___ Bereavement ___ Communion _x__ Prema exploration ___ ___ Life review _x__ Prayer ___ Reconciliation ___ Sacrament of Sick _x__ Supportive presence ___ Wedding ___ Other (describe below) Pastoral Comments
[2019-07-19] MEDS: 0.9% Saline Lock 10 ML Syringe IV ×2 (16:08→21:22)
[2019-07-19 16:41] LABS: Bedside Glucose 292 mg/dL (70-110)
[2019-07-19 17:40] LABS: Bedside Glucose 267 mg/dL (70-110)
[2019-07-19] MEDS: Metoprolol Tartrate 25 MG Tablet PO (20:23)
[2019-07-19 23:26] LABS: Bedside Glucose 225 mg/dL (70-110)
[2019-07-20] VITALS (12 sets, daily range): BP systolic 134–187; BP diastolic 51–91; PULSE 56–70; RESP 16–18; TEMP 36.2–37; O2SAT 96–100; BMI 41.7; BMI 41.8
--- NOTE | 2019-07-20 05:00 | EKG12_ITS ---
Test Reason : Blood Pressure : / mmHG Vent. Rate : 071 BPM Atrial Rate : 249 BPM P-R Int : 000 ms QRS Dur : 094 ms QT Int : 422 ms P-R-T Axes : 105 -03 067 degrees QTc Int : 458 ms Atrial flutter with variable A-V block Abnormal ECG When compared with ECG of 21-JUL-2019 12:41, MANUAL COMPARISON REQUIRED, DATA IS UNCONFIRMED Confirmed by JACEK RESENDEZ ([id number]), manager editorial JESUS MACK ([id number]) on 07/22/2019 8:52:52 AM Referred By: [employer] Confirmed By:JACEK RESENDEZ
[2019-07-20] MEDS: Cefazolin 1 GM/50 ML BAG IV ×2 (05:11→21:46)
[2019-07-20] MEDS: 0.9% Saline Lock 10 ML Syringe IV ×3 (05:13→21:46)
[2019-07-20] MEDS: traMADol 50 MG Tablet 150 MG PO (05:21)
[2019-07-20 05:41] LABS: Absolute Lymphocyte Count 1.31 X10^3/uL (0.83-4.51); Absolute Neutrophil Count 3.8 X10^3/uL (2.0-7.7); Basophil# 0.03 X10^3/uL; Basophil% 0.5 % (0-1); Eosinophil# 0.12 X10^3/uL; Hematocrit 32.3 % (40-54); Lymphocyte # 1.31 X10^3/ul (4.0); Lymphocyte % 21.5 % (19-41); Mean Corpuscular Hgb 28.2 pg (27.0-32.0); Mean Corpuscular Volume 91.2 fL (80-94); Mean Platelet Vol. 9.6 fl (6.2-12.0); Monocyte# 0.66 X10^3/uL; Monocyte% 10.8 % (0-10); NRBC Flagged by Analyzer 0 % (0-5); Neutrophil # 3.83 X10^3/uL (2.7-7.7); Neutrophil % 62.9 % (47-70); Platelet Count 267 K/mm3 (150-450); RBC Distribution Width CV 13.5 % (11.6-14.6); RBC Distribution Width SD 45.3 fl (35.1-43.9); Red Blood Count 3.54 M/mm3 (4.6-6.2); White Blood Count 6.1 K/mm3 (4.4-11.0)
[2019-07-20 05:59] LABS: Anion Gap 5 (5-15); BUN 16 mg/dL (7-18); BUN/Creat Ratio 12.8 RATIO (10-20); Calcium,Total 8.3 mg/dL (8.5-10.1); Chloride 111 mmol/L (98-107); Creatinine, Serum 1.25 mg/dL (0.70-1.30); EST Glomerular Filtration Rate 59 mL/min (>60); Est Glom Filt Rate - Afr Amer 71 mL/min (>60); Glucose 206 mg/dL (74-106); Potassium 4.3 mmol/L (3.5-5.1); Sodium Level 139 mmol/L (136-145)
[2019-07-20] MEDS: Insulin Lispro 100 UNIT/ML INSULN.PEN SC ×3 (06:35→23:01)
[2019-07-20 06:46] LABS: Bedside Glucose 189 mg/dL (70-110)
--- NOTE | 2019-07-20 08:19 | NURSING ---
Pt is scheduled for surgery this afternoon with Dr Juarez Parker. will leave dressing in place.
--- NOTE | 2019-07-20 08:51 | PN_ITS ---
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 Patient seen and examined. No acute events overnight. Denies any complaints, asymptomatic. Denied left foot pain. Denies fever or chills. His vital signs are stable. - Physical Exam Vitals/I&O's: Vital Signs Temp Pulse Resp BP Pulse Ox 97.7 F L 70 18 134/51 H 100 07/20/19 04:09 07/20/19 04:09 07/20/19 04:09 07/20/19 04:09 07/20/19 04:09 Oxygen Delivery Method Room Air Weight: 250 lb 14.177 oz Body Mass Index (BMI) 41.8 Intake and Output for Last 24 Hours 07/18/19 07/19/19 07/20/19 23:59 23:59 23:59 Intake Total 4879.09 / 4879.09 1237.08 / 1237.08 50 / 50 Output Total 2550 / 2550 1000 / 1000 525 / 525 Balance 2329.09 / 2329.09 237.08 / 237.08 -475 / -475 General: Alert, Oriented x3, Cooperative, No apparent distress HEENT: Atraumatic, PERRLA, EOMI, Normocephalic Oral: Moist Mucosa, No Gingival or Mucosal Lesions/ Ulcerations Neck: Supple, No JVD, Negative Carotid Bruits, Trachea Midline, Thyroid Normal Size and Texture Lungs: Clear to auscultation, Normal air movement, No rhonchi, No wheeze, No rales Cardiovascular: Regular rate, Regular Rhythm, Normal S1, Normal S2, No murmurs, PMI Normal Abdomen: Bowel Sounds Present, Soft, Non Tender, Non-Distended, No Hepato- splenomegaly, Obese Extremities: No clubbing, No cyanosis, No edema Skin: No rashes, Ulcer/ Wound Lymphatic: No Cervical, Supraclavicular, or Inguinal Adenopathy Neurological: Cranial nerves II-XII grossly intact, Motor Exam 5/5 strength throughout Psych/Mental Status: Normal Affect, Appropriate, Alert and oriented to time, place, person, mood and affect Microbiology Past 72 Hours 07/16/19 12:06 Blood Culture (Wb) - Left Wrist Blood Culture - Preliminary No growth in 48 hours. 07/16/19 11:30 Blood Culture (Wb) - Arm Right Blood Culture - Preliminary No growth in 48 hours. 07/16/19 11:57 Wound - Toe Gram Stain - Final 07/16/19 11:57 Wound - Toe Wound Culture - Final Staphylococcus aureus Laboratory Results 07/19/19 11:14: POC Glucose 267 H 07/19/19 12:25: Vancomycin Trough 14.7 07/19/19 16:07: POC Glucose 292 H 07/19/19 21:20: POC Glucose 225 H 07/20/19 05:12: WBC 6.1, RBC 3.54 L, Hgb 10.0 L, Hct 32.3 L, MCV 91.2, MCH 28.2, MCHC 31.0 L, RDW Std Deviation 45.3 H, RDW Coeff of Suraj 13.5, Plt Count 267, MPV 9.6, Immature Gran % (Auto) 2.300 H, Neut % (Auto) 62.9, Lymph % (Auto) 21.5, [place] % (Auto) 10.8 H, Eos % (Auto) 2.0, Baso % (Auto) 0.5, Absolute Neuts (auto) 3.8, Absolute Lymphs (auto) 1.31, Nucleated RBC % 0 07/20/19 05:12: Sodium 139, Potassium 4.3, Chloride 111 H, Carbon Dioxide 23.0, Anion Gap 5, BUN 16, Creatinine 1.25, Estim Creat Clear Calc 41.00, Est GFR (MDRD) Af Amer 71, Est GFR (MDRD) Non-Af 59 L, BUN/Creatinine Ratio 12.8, Glucose 206 H, Calcium 8.3 L 07/20/19 06:33: POC Glucose 189 H Current Medications Acetaminophen (Tylenol) 650 mg PO Q6H PRN PRN PRN Reason: Pain Score 1-3/Temp > 100.7 F Last Admin: 07/17/19 14:51 Dose: 650 mg Documented by: Glipizide (Glucotrol) 10 mg PO BID@0800,1700 CAMILO Last Admin: 07/19/19 16:09 Dose: 10 mg Documented by: Glucagon () 1 mg IM .X1 PRN PRN Reason: Hypoglycemia Hydralazine HCl (Apresoline Iv) 10 mg IV Q8H PRN PRN PRN Reason: for SBP>160 Dextrose (Dextrose 10%-Water) 250 mls @ 999 mls/hr IV .Q16M PRN; Protocol PRN Reason: HYPOGLYCEMIA Sodium Chloride () 250 mls @ 15 mls/hr IV .[id number] PRN PRN Reason: Saline Flush Last Admin: 07/20/19 06:53 Dose: 15 mls/hr Documented by: Cefazolin Sodium () 1 gm in 50 mls @ 100 mls/hr IV Q8 [facility] Last Infusion: 07/20/19 05:42 Dose: Infused Documented by: Insulin Human Lispro (Humalog Kwikpen (Bkc)) 0 unit SC TIDAC [facility]; Protocol Last Admin: 07/20/19 06:35 Dose: 1 units Documented by: Metoprolol Tartrate (Lopressor (Beta Deborah)) 25 mg PO DAILY@2000 [facility] Last Admin: 07/19/19 20:23 Dose: 25 mg Documented by: Metoprolol Tartrate (Lopressor (Beta Deborah)) 50 mg PO DAILY@0800 [facility] Last Admin: 07/19/19 08:17 Dose: 50 mg Documented by: Nitroglycerin (Nitrostat) 0.4 mg SUBLINGUAL Q5M PRN PRN Reason: CARDIAC/CHEST PAIN Pantoprazole Sodium (Protonix) 20 mg PO DAILY [facility] Last Admin: 07/19/19 08:16 Dose: 20 mg Documented by: Sodium Chloride () 10 - 40 ml IV UD PRN PRN Reason: SALINE FLUSH Last Admin: 07/20/19 05:13 Dose: 10 ml Documented by: Sodium Chloride () 10 - 40 ml IV UD PRN PRN Reason: SALINE FLUSH Timolol Maleate (Timoptic) 1 drop EACH EYE BID [facility] Last Admin: 07/19/19 21:21 Dose: 1 drop Documented by: Tramadol HCl (Ultram) 150 mg PO 0600 [facility] Last Admin: 07/20/19 05:21 Dose: 150 mg Documented by: Tramadol HCl (Ultram) 50 mg PO 1400 [facility] Last Admin: 07/19/19 13:01 Dose: 50 mg Documented by: Medical Necessity - Tobacco Use Smoking Status: Former smoker Tobacco Use: Cigarettes Assessment/Plan All Active Problems 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 Parker who was a hiv cts specialist for left big toe ulcer/infected wound and cellulitis of the left forefoot and he was admitted for evaluation and treatment. #1 left forefoot cellulitis/infected diabetic left big toe ulcer/left big toe osteomyelitis: She is on IV cefazolin. He remained afebrile, no leukocytosis. Vital signs are stable, afebrile. Wound culture revealed MSSA. Blood cultures were no growth in 48 hours. Podiatry medicine evaluated the patient and plan for surgery today. Plan to continue same treatment. #2 lactic acidosis: With stable vital signs. Lactic acid was 4.2, came down to 0.6 with IV fluids. Patient has been afebrile. He is on IV cefazolin as above. #3 type 2 diabetes mellitus: Seemed to be under fair control. Hemoglobin A1c was 7.5%. Continue glipizide and sliding scale. #4 peripheral vascular disease: Ankle-brachial index performed, revealed left and right moderately severe arterial occlusive disease. Vascular surgery consulted, plan for angiogram on July 21 which is after tomorrow. #5 CAD status post stents: Stable, no complaints. Continue metoprolol. Plavix held because patient is going for surgery. #6 hypertension: Blood pressure stable, continue metoprolol, continue IV hydralazine PRN #7 stage III chronic kidney disease: Baseline creatinine has been around 1.5- 1.8, admission creatinine is 2.1, came down to 1.25 today with IV fluids, improved. #8 history of pulmonary embolism: Patient is on Eliquis. This was held planning for surgery. #9 GERD: Continue Protonix. #10 DVT prophylaxis: Subcu heparin. This note was generated with [employer] dictation software. It may contain incorrect words, spelling, and punctuation that were not noted in checking the note before signing. Code Visit Inpatient E&M: 15165 Subs Hosp L2
[2019-07-20] MEDS: Metoprolol Tartrate 50 MG Tablet PO (09:14)
[2019-07-20] MEDS: Pantoprazole Sodium 20 MG Tablet PO (09:15)
[2019-07-20] MEDS: Timolol 0.5% 5ML OPTH.BTL 1 DRP EACH EYE ×2 (09:15→21:46)
[2019-07-20 11:55] LABS: Bedside Glucose 196 mg/dL (70-110)
--- NOTE | 2019-07-20 12:30 | AMP_PTH ---
PATIENT: JANET BERNARD LOC: [facility] U#:[id number] AGE/SX: 79/M ROOM: [facility] RE07/16/[address]: Dr. Selwyn Grove DO : 1940 BED: 1 DIS: 07/23/2019 SPEC #: [id number] RECD: 07/20/19 15:48 STATUS: MARIE REManas #: [id number] OPAL: 07/20/19 12:[address]: Juarez Parker DEPT: SURGICAL PATHOLOGY RECD BY: Moy Bishop ENTERED: 07/21/19 08:32 SP TYPE: Amputation OTHR DR: DO Dr. 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 Clearance fragment: Pieces of bone with reactive changes, negative for acute osteomyelitis. Adherent pieces of soft tissue with changes consistent with gouty tophi. B. Big toe, amputation: Foal ulceration, acute and chronic inflammation, granulation tissue reaction, abscess formation and changes consistent with gouty tophi. Pieces of bone with reactive changes, chronic inflammation and changes consistent with gouty tophi. Negative for acute osteomyelitis. Special stains for acid fast bacilli and fungi are negative for organisms; matched controls are appropriate. SJ:kip 07/26/19 COMMENT Case has been reviewed in consultation with Dr. Sellers who concurs with the above diagnosis. IDC:AM MICROSCOPIC DESCRIPTION Slides are reviewed. GROSS DESCRIPTION A - Received in fixative is one container labeled with the patient's name and designated clearance margin. The specimen consists of two pieces of bone with attached soft tissue that in aggregate measure 3 x 2.5 x 2.3 cm. The entire specimen is submitted in one cassette after decalcification. B - Received in fixative is one container labeled with the patient's name and designated big toe. The specimen consists of a portion of toe measuring 4 x 3.5 x 3 cm. The tip of the toe shows a focal area of ulceration measuring 1 cm in greatest dimension. Additional areas of ulceration are noted on the medial lateral surfaces of the toe measuring 1 and 1.5 cm in greatest dimension. Focal area of chalky, white deposits are noted underneath the area of ulceration and also in the subcutaneous tissue. Also present in the container is a piece of bone measuring 2.5 x 3 x 2 cm. Also present in the container is an additional fragment of bone consistent with metatarsal bone measuring 4 x 2 x 2 cm. Cans Vacuum Tester sections are submitted in five cassettes as follows: 1 & 2 - ulcerated area including chalky white deposit, 3-5 - bone after decalcification. / AMIRA:kip 07/21/19 TC:2 CPT: 87029, 41835, 50415 x2, 72474 x2
--- NOTE | 2019-07-20 14:05 | RAD_ITS ---
STUDY: X-RAY - LEFT FOOT CLINICAL: Male, 79 years old. POST OP TECHNIQUE: 3 view(s) of the foot. COMPARISON: July 16, 2019 foot FINDINGS: Achilles and plantar spurs. Normal visualized subtalar, talonavicular, calcaneocuboid, tarsal and tarsometatarsal articulations. There is demineralization of the metatarsi. Normal second through fifth metatarsophalangeal joints. There is still an erosive appearance of the middle distal phalanx of the third digit would correspond to the soft tissue edema and lesion within the third distal phalanx seen on the recent MRI. The fourth digit is osteopenia without visualized cortical erosion.. Since prior study there is been a amputation of the first digit at the midfirst metatarsal. There is soft tissue edema and inhomogeneous appearance of the bony mineralization of the foot. RAD/Foot min 3 Views IMPRESSION: Status post amputation of the first digit at the mid metatarsal. Erosion of the third digit middle and distal phalanx persistent osteomyelitis.. Electronically Signed: Queenie Ramos MD at 15:47 EST Tel , Service support ,
--- NOTE | 2019-07-20 14:08 | PCM.OPRPT ---
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 Status: Acute Qualifiers: Diabetic foot ulcer location: toe Diabetes mellitus type: type 2 Qualified Code(s): E11.621 - Type 2 diabetes mellitus with foot ulcer; L97.524 - Non-pressure chronic ulcer of other part of left foot with necrosis of bone (2) Peripheral vascular disease Status: Acute (3) Diabetic foot ulcer Status: Chronic Qualifiers: Diabetic foot ulcer location: toe Diabetes mellitus type: type 2 Laterality: right Non-pressure ulcer stage: with necrosis of bone Qualified Code(s): E11.621 - Type 2 diabetes mellitus with foot ulcer; L97.514 - Non-pressure chronic ulcer of other part of right foot with necrosis of bone (4) Osteomyelitis Status: Chronic Qualifiers: Osteomyelitis type: other acute Osteomyelitis location: foot Laterality: left Qualified Code(s): M86.172 - Other acute osteomyelitis, left ankle and foot (5) PAD (peripheral artery disease) Status: Chronic Report of Operation Date of Procedure: 07/20/19 Pre-Operative Diagnosis: 1. Diabetes mellitus type 2 polyneuropathy. 2. Diabetes mellitus type 2 with foot ulcer. 3. Nonpressure ulcer left hallux down to and including level of bone with necrosis of bone x3. 4. Peripheral arterial disease Post-Operative Diagnosis: Same as preoperative Surgery/Procedure Performed:: 1. Left foot partial first ray amputation Description of Surgical Findings:: Consistent with diagnosis. Remaining first metatarsal appeared hard, healthy, and pearly white with active medullary bleeding. No signs of osteonecrosis noted within the remaining first metatarsal. supervisor [employer]: Lisbeth Hillman Type of Anesthesia:: Local MAC - 20 cc of 0.5 % Marcaine plain was distributed a medial ankle and first ray block fashion to the left foot and ankle Anesthesiologist: Grupo Taylor Special Medications: 1 gram of ancef given pre-operatively Specimen's removed: 1. Culture of proximal margin first metatarsal left foot. 2. Pathology of proximal margin first metatarsal left foot. 3. Wound culture of left foot wound status post washout. 4. Left hallux and first metatarsal head for pathology Drains: None Estimated Blood Loss (mL): 50 Description of Procedure: Anesthesia MAC with local block of the left lower extremity consisting of 20 cc of 0.5 the Marcaine plain distributed medial ankle block fashion of first ray block fashion to the left foot and ankle Hemostasis: Anatomic dissection estimated blood loss 50 mL Materials: Size 0 Vicryl, size 2-0 Vicryl, size 2-0 nylon, size 3-0 nylon Injectables: 10 cc of 0.5 the Marcaine plain distributed in the medial ankle block fashion to left ankle Complications: None Condition: Stable Indications: The patient is a 79 year old M who was admitted to the hospital on July 16, 2019 for a left foot diabetic foot infection with osteomyelitis. Patient was sent to the emergency department by me after see me in the office on July 16. Upon verbal questioning, patient stubbed his left great toe and had a door roll over it on July 12, 2019. Patient had a history of ulcerations and infections of that toe, which subsided with antibiotic medications. Patient states that he was observing the left big toe to see if it got better. Patient noticed that the left big toe became swollen with multiple lesions noted. Furthermore, he noticed drainage coming from the wound and redness starting at the toe and going into the middle of his foot. After seeing the acute infection that was present along with the multiple ulcerations that probed down to bone, I suspected a significant infection with osteomyelitis in the hallux. Furthermore, there is mottling of the skin of the other digits of the left foot, so I suspected peripheral vascular disease as well. I then instructed the patient to report to the emergency department to be admitted. In the emergency room, patient was not septic but did have a lactic acid of greater than 4. Wound culture was positive for staph aureus. 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 Patient also states that he does have a history of peripheral vascular disease, and had stents placed in his right lower extremity. MRI was performed revealing infection of the left hallux along with septic arthritis of the first metatarsal phalangeal joint. ELOY and PVRs revealed moderate to severe disease of the left lower extremity. Vascular surgery was consulted. Dr. Menard will be perform an angiogram tomorrow. After speaking with Dr. Menard, he states that I can go ahead and perform the amputation as needed. A full discussion was had with the patient about his treatment options. This included conservative therapy with a long-term course of IV antibiotics. Furthermore this included surgical intervention to remove the infected tissue. I discussed the risks and benefits of both treatment options. I discussed that due to the presence of the infection of the bone, along with the multiple ulcerations of the left toe, that a partial first ray amputation would benefit the patient long-term as opposed to just a hallux removal. After speaking with his , patient elected to have the amputation performed. Operative report: Before the patient was brought to the operating room, all the risks, benefits, possible outcomes, possible complications of the procedure discussed with the patient. All the patient questions were answered to his satisfaction and all of his concerns were addressed. No guarantees were made as to the outcome of the procedure. The patient understood all aspects of the procedure, and consent was then signed by the patient. Patient was then brought to the operating room placed in the operative table in supine position. After timeout, once anesthesia was obtained and the anesthesiologist to control, 20 cc of 0.5% Marcaine plain was distributed a medial ankle block fashion and a first ray block fashion to the left foot and ankle. The left foot, ankle, leg were then scrubbed, prepped, draped in the usual sterile manner. Attention was then directed to the left hallux of the left foot. At this time, #15 blade was used to perform a racquet type incision with a handle starting on the medial aspect of the first metatarsal head extending distally to encompass the base of the shaft of the proximal phalanx. This incision was full-thickness in nature. At this time sharp dissection was continued of the proximal phalanx in all directions. Significant gouty arthropathy was noted throughout dissection. The first metatarsal phalangeal joint was then identified. At this time, the metatarsal phalangeal joint was sharply disarticulated. The left hallux was then sharply dissected free of its soft tissue attachments and removed from the operative site. Visual inspection was then performed of the first metatarsal head. Obvious osteonecrosis was present within the first metatarsal head. Furthermore, there was significant gouty arthropathy noted throughout the metatarsal phalangeal joint capsule. Sharp dissection was continued around the first metatarsal. Care was taken make sure that full-thickness flaps were present on the dorsal and plantar aspects of the first metatarsal. This was performed until a level of the metatarsal was reached that did not appear necrotic. This was at approximately the distal portion of the first metatarsal shaft. At this time, a sagittal bone saw was used to resect the head and neck of the first metatarsal. Care was taken to make sure that the resection was performed in a dorsal distal to plantar proximal fashion with angulation laterally. This was to help simulate the first metatarsal parabola. Once this portion of bone was fully resected, it was passed from the operative site. Visual inspection was then performed of the remaining first metatarsal. The remaining first metatarsal appeared hard, healthy, and pearly white with no signs of osteonecrosis. Healthy active medullary bleeding was noted. A portion of this remaining first metatarsal was resected and passed from the operative site to be sent for pathology labeled clear margin. Another portion of his remaining first metatarsal was resected and passed from the operative site to be sent for culture labeled clear margins. Any sharp edges contained without around the first metatarsal were resected utilizing a rongeour and a sagittal bone saw. The remaining first metatarsal was smoothed with no jagged edges. Next, any gouty tissue contained within the surgical site was resected and passed from the operative site. These portions of tissue were sent to pathology. At this time, the surgical site was irrigated with 3 L of normal sterile saline with a pulse lavage. After irrigation, the left foot was reprepped and gloves were changed. Wound cultures were then taken of the wound for aerobic, anaerobic, acid-fast, fungal organisms status post washout. Visual inspection was then performed of the remaining soft tissues. The remaining soft tissues were deemed healthy with no signs of necrosis. Active bleeding was noted. At this time the deeper soft tissues were reapproximated coapted utilizing size 0 Vicryl and size 2-0 Vicryl. The skin was reapproximated coapted utilizing 2-0 nylon and 3-0 nylon in a simple interrupted horizontal mattress fashion. Neurovascular status was assessed and deemed intact to left lower extremity. The surgical site was then dressed with Betadine soaked gauze, and a dry sterile dressing setting of 4 x 4 gauze wrapped with Kerlix. The left foot and ankle were then wrapped with an Grady bandage that was placed lightly. The patient tolerated anesthesia procedure well and was transported to the PACU with vital signs stable and neurovascular status intact to left lower extremity. After period of postoperative monitoring, patient be transferred back to the general medical floor. At this time, due to the that healthy soft tissue that remained and healthy appearance of bone, I do not plan for any further surgical intervention at this time. The patient will keep the dressing clean, dry, intact to the left foot. Patient is to remain nonweightbearing to the left foot. Patient is to elevate at this time. We will keep the dressing clean, dry, intact and reinforce as necessary. I will continue to follow the patient closely and update accordingly. - Admit VTE Documentation VTE Present on Admission: No VTE Mechan Device Prophylaxis: SCD's
[2019-07-20] MEDS: Bupivacaine Mpf 0.5% 30 ML VIAL (14:17)
[2019-07-20] MEDS: traMADol 50 MG Tablet PO (16:07)
[2019-07-20 16:11] LABS: Bedside Glucose 178 mg/dL (70-110)
[2019-07-20] MEDS: glipiZIDE 10 MG Tablet PO (17:32)
[2019-07-20] MEDS: Metoprolol Tartrate 25 MG Tablet PO (19:57)
[2019-07-20 21:56] LABS: Bedside Glucose 319 mg/dL (70-110)
[2019-07-21] VITALS (18 sets, daily range): BP systolic 108–153; BP diastolic 40–100; PULSE 64–94; RESP 16–20; TEMP 36.6–37; O2SAT 94–98
[2019-07-21] MEDS: traMADol 50 MG Tablet 150 MG PO (06:15)
[2019-07-21] MEDS: Cefazolin 1 GM/50 ML BAG IV ×3 (06:23→21:07)
[2019-07-21] MEDS: 0.9% Saline Lock 10 ML Syringe IV ×2 (06:24→21:07)
[2019-07-21] MEDS: Insulin Lispro 100 UNIT/ML INSULN.PEN SC ×4 (06:32→21:03)
[2019-07-21 06:41] LABS: Bedside Glucose 200 mg/dL (70-110)
[2019-07-21 07:50] LABS: Absolute Lymphocyte Count 1.35 X10^3/uL (0.83-4.51); Basophil# 0.04 X10^3/uL; Basophil% 0.5 % (0-1); Eosinophil# 0.11 X10^3/uL; Eosinophils% 1.3 % (0-5); Hematocrit 30.6 % (40-54); Hemoglobin 9.7 g/dL (13.0-16.5); Lymphocyte # 1.35 X10^3/ul (4.0); Lymphocyte % 16.3 % (19-41); Mean Corp Hgb Conc 31.7 g/dL (32-36); Mean Corpuscular Hgb 28.4 pg (27.0-32.0); Mean Corpuscular Volume 89.5 fL (80-94); Mean Platelet Vol. 9.5 fl (6.2-12.0); Monocyte# 0.74 X10^3/uL; Monocyte% 8.9 % (0-10); NRBC Flagged by Analyzer 0 % (0-5); Neutrophil # 5.95 X10^3/uL (2.7-7.7); Platelet Count 247 K/mm3 (150-450); RBC Distribution Width CV 13.7 % (11.6-14.6); RBC Distribution Width SD 44.3 fl (35.1-43.9); Red Blood Count 3.42 M/mm3 (4.6-6.2); White Blood Count 8.3 K/mm3 (4.4-11.0)
[2019-07-21 08:05] LABS: Anion Gap 5 (5-15); BUN 15 mg/dL (7-18); BUN/Creat Ratio 12.8 RATIO (10-20); Calcium,Total 8.6 mg/dL (8.5-10.1); Chloride 114 mmol/L (98-107); Creatinine, Serum 1.17 mg/dL (0.70-1.30); EST Glomerular Filtration Rate 64 mL/min (>60); Est Glom Filt Rate - Afr Amer 77 mL/min (>60); Glucose 218 mg/dL (74-106); Potassium 4.3 mmol/L (3.5-5.1); Sodium Level 140 mmol/L (136-145)
[2019-07-21] MEDS: Metoprolol Tartrate 50 MG Tablet PO (09:31)
[2019-07-21] MEDS: glipiZIDE 10 MG Tablet PO ×2 (09:31→15:59)
[2019-07-21] MEDS: Acetaminophen 325 MG Tablet 650 MG PO (09:35)
[2019-07-21] MEDS: Pantoprazole Sodium 20 MG Tablet PO (09:36)
[2019-07-21] MEDS: Timolol 0.5% 5ML OPTH.BTL 1 DRP EACH EYE ×2 (09:36→21:10)
--- NOTE | 2019-07-21 09:42 | PN_ITS ---
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 Patient seen and examined. No acute events overnight. He denied any complaints. Denied left foot pain. Denies fever chills. His vital signs are stable. - Physical Exam Vitals/I&O's: Vital Signs Temp Pulse Resp BP Pulse Ox 98.0 F 72 18 138/62 H 96 07/21/19 08:35 07/21/19 09:31 07/21/19 08:35 07/21/19 09:31 07/21/19 08:35 Oxygen Delivery Method Room Air Weight: 250 lb 14.177 oz Body Mass Index (BMI) 41.7 Intake and Output for Last 24 Hours 07/19/19 07/20/19 07/21/19 23:59 23:59 23:59 Intake Total 1237.08 / 1237.08 792.00 / 992.00 350 / 350 Output Total 1000 / 1000 725 / 1150 950 / 950 Balance 237.08 / 237.08 67.00 / -158.00 -600 / -600 General: Alert, Oriented x3, Cooperative HEENT: Atraumatic, PERRLA, EOMI, Normocephalic Oral: Moist Mucosa, No Gingival or Mucosal Lesions/ Ulcerations Neck: Supple, No JVD, Negative Carotid Bruits, Trachea Midline, Thyroid Normal Size and Texture Lungs: Clear to auscultation, Normal air movement, No rhonchi, No wheeze, No rales Cardiovascular: Regular rate, Regular Rhythm, Normal S1, Normal S2, No murmurs, PMI Normal Abdomen: Bowel Sounds Present, Soft, Non Tender, Non-Distended, No Hepato- splenomegaly Extremities: No clubbing, No cyanosis, No edema Skin: No rashes, Ulcer/ Wound - Left foot dressed. Lymphatic: No Cervical, Supraclavicular, or Inguinal Adenopathy Neurological: Cranial nerves II-XII grossly intact, Neuro grossly intact Psych/Mental Status: Normal Affect, Appropriate, Alert and oriented to time, place, person, mood and affect Microbiology Past 72 Hours 07/20/19 14:06 Tissue - Toe Gram Stain - Final 07/20/19 13:59 Tissue - Toe Gram Stain - Final 07/16/19 12:06 Blood Culture (Wb) - Left Wrist Blood Culture - Preliminary No growth in 48 hours. 07/16/19 11:30 Blood Culture (Wb) - Arm Right Blood Culture - Preliminary No growth in 48 hours. 07/16/19 11:57 Wound - Toe Gram Stain - Final 07/16/19 11:57 Wound - Toe Wound Culture - Final Staphylococcus aureus Laboratory Results 07/20/19 11:30: POC Glucose 196 H 07/20/19 16:04: POC Glucose 178 H 07/20/19 21:44: POC Glucose 319 H 07/21/19 06:31: POC Glucose 200 H 07/21/19 07:40: WBC 8.3, RBC 3.42 L, Hgb 9.7 L, Hct 30.6 L, MCV 89.5, MCH 28.4, MCHC 31.7 L, RDW Std Deviation 44.3 H, RDW Coeff of Suraj 13.7, Plt Count 247, MPV 9.5, Immature Gran % (Auto) 1.000 H, Neut % (Auto) 72.0 H, Lymph % (Auto) 16.3 L , Tama % (Auto) 8.9, Eos % (Auto) 1.3, Baso % (Auto) 0.5, Absolute Neuts (auto) 6.0, Absolute Lymphs (auto) 1.35, Nucleated RBC % 0 07/21/19 07:40: Sodium 140, Potassium 4.3, Chloride 114 H, Carbon Dioxide 21.0, Anion Gap 5, BUN 15, Creatinine 1.17, Estim Creat Clear Calc 43.80, Est GFR (MDRD) Af Amer 77, Est GFR (MDRD) Non-Af 64, BUN/Creatinine Ratio 12.8, Glucose 218 H, Calcium 8.6 Microbiology 07/20/19 14:06 Tissue - Toe Gram Stain - Final 07/20/19 13:59 Tissue - Toe Gram Stain - Final 07/16/19 12:06 Blood Culture (Wb) - Left Wrist Blood Culture - Preliminary No growth in 48 hours. 07/16/19 11:30 Blood Culture (Wb) - Arm Right Blood Culture - Preliminary No growth in 48 hours. 07/16/19 11:57 Wound - Toe Gram Stain - Final 07/16/19 11:57 Wound - Toe Wound Culture - Final Staphylococcus aureus Current Medications Acetaminophen (Tylenol) 650 mg PO Q6H PRN PRN PRN Reason: Pain Score 1-3/Temp > 100.7 F Last Admin: 07/21/19 09:35 Dose: 650 mg Documented by: Glipizide (Glucotrol) 10 mg PO BID@0800,1700 [facility] Last Admin: 07/21/19 09:31 Dose: 10 mg Documented by: Glucagon () 1 mg IM .X1 PRN PRN Reason: Hypoglycemia Hydralazine HCl (Apresoline Iv) 10 mg IV Q8H PRN PRN PRN Reason: for SBP>160 Dextrose (Dextrose 10%-Water) 250 mls @ 999 mls/hr IV .Q16M PRN; Protocol PRN Reason: HYPOGLYCEMIA Sodium Chloride () 250 mls @ 15 mls/hr IV .[id number] PRN PRN Reason: Saline Flush Last Infusion: 07/21/19 06:53 Dose: 15 mls/hr Documented by: Cefazolin Sodium () 1 gm in 50 mls @ 100 mls/hr IV Q8 [facility] Last Infusion: 07/21/19 06:53 Dose: Infused Documented by: Insulin Human Lispro (Humalog Kwikpen (Bkc)) 0 unit SC [facility]; Protocol Last Admin: 07/21/19 06:32 Dose: 4 u Documented by: Metoprolol Tartrate (Lopressor (Beta Deborah)) 25 mg PO DAILY@2000 [facility] Last Admin: 07/20/19 19:57 Dose: 25 mg Documented by: Metoprolol Tartrate (Lopressor (Beta Deborah)) 50 mg PO DAILY@0800 [facility] Last Admin: 07/21/19 09:31 Dose: 50 mg Documented by: Nitroglycerin (Nitrostat) 0.4 mg SUBLINGUAL Q5M PRN PRN Reason: CARDIAC/CHEST PAIN Pantoprazole Sodium (Protonix) 20 mg PO DAILY [facility] Last Admin: 07/21/19 09:36 Dose: 20 mg Documented by: Sodium Chloride () 10 - 40 ml IV UD PRN PRN Reason: SALINE FLUSH Last Admin: 07/21/19 06:24 Dose: 20 ml Documented by: Sodium Chloride () 10 - 40 ml IV UD PRN PRN Reason: SALINE FLUSH Timolol Maleate (Timoptic) 1 drop EACH EYE BID [facility] Last Admin: 07/21/19 09:36 Dose: 1 drop Documented by: Tramadol HCl (Ultram) 150 mg PO 0600 [facility] Last Admin: 07/21/19 06:15 Dose: 150 mg Documented by: Tramadol HCl (Ultram) 50 mg PO 1400 [facility] Last Admin: 07/20/19 16:07 Dose: 50 mg Documented by: Medical Necessity - Tobacco Use Smoking Status: Former smoker Tobacco Use: Cigarettes Assessment/Plan All Active Problems 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 #1 left forefoot cellulitis/infected diabetic left big toe ulcer/left big toe osteomyelitis: Status post left foot partial first ray amputation, postoperative day 1.. Remained on IV cefazolin. He remained afebrile, no leukocytosis. Vital signs are stable, afebrile. Wound culture revealed MSSA. Culture of the surgical specimens is pending. Blood cultures were no growth in 48 hours. Podiatry medicine on the case. Plan: Continue same treatment, infectious disease consult. #2 lactic acidosis: With stable vital signs. Lactic acid was 4.2, came down to 0.6 with IV fluids. Patient has been afebrile. He is on IV cefazolin as above. #3 type 2 diabetes mellitus: Seemed to be under fair control. Hemoglobin A1c was 7.5%. Continue glipizide and sliding scale. #4 peripheral vascular disease: Ankle-brachial index performed, revealed left and right moderately severe arterial occlusive disease. Vascular surgery consulted, plan for angiogram on July 23 which is after tomorrow.Initially, I was informed that patient is going for angiography on July 21. #5 CAD status post stents: Stable, no complaints. Continue metoprolol. will resume Plavix. #6 hypertension: Blood pressure stable, continue metoprolol, continue IV hydralazine PRN #7 stage III chronic kidney disease: Baseline creatinine has been around 1.5- 1.8, admission creatinine is 2.1, came down to 1.25 today with IV fluids, improved. #8 history of pulmonary embolism: will resume Eliquis. #9 GERD: Continue Protonix. #10 DVT prophylaxis: Subcu heparin. This note was generated with [employer] dictation software. It may contain incorrect words, spelling, and punctuation that were not noted in checking the note before signing. Code Visit Inpatient E&M: 88600 Subs Hosp L2
[2019-07-21 11:55] LABS: Bedside Glucose 298 mg/dL (70-110)
[2019-07-21] MEDS: Nitroglycerin (INPATIENT USE) 0.4 MG TAB.SUBL SUBLINGUAL (12:31)
--- NOTE | 2019-07-21 12:34 | EKG12_ITS ---
Test Reason : AM Blood Pressure : / mmHG Vent. Rate : 064 BPM Atrial Rate : 064 BPM P-R Int : 170 ms QRS Dur : 096 ms QT Int : 438 ms P-R-T Axes : 004 030 034 degrees QTc Int : 451 ms Normal sinus rhythm Low voltage QRS Nonspecific T wave abnormality Abnormal ECG When compared with ECG of 24-DEC-2017 12:46, Nonspecific T wave abnormality now evident in Inferior leads Confirmed by JACEK RESENDEZ ([id number]), news editor JESUS MACK ([id number]) on 07/22/2019 8:55:39 AM Referred By: Grupo Crook Confirmed By:JACEK RESNEDEZ
--- NOTE | 2019-07-21 12:40 | EKG12_ITS ---
Test Reason : CP Blood Pressure : / mmHG Vent. Rate : 069 BPM Atrial Rate : 288 BPM P-R Int : 000 ms QRS Dur : 096 ms QT Int : 440 ms P-R-T Axes : 000 -03 060 degrees QTc Int : 471 ms Atrial flutter with variable A-V block Consider right ventricular involvement in acute inferior infarct Anterior lateral ST depression, cannot exclude ischemia Abnormal ECG When compared with ECG of 21-JUL-2019 12:40, MANUAL COMPARISON REQUIRED, DATA IS UNCONFIRMED Confirmed by JACEK RESENDEZ ([id number]), editor magazine LUISA CHAPIN ([id number]) on 07/22/2019 1:36:35 PM Referred By: Grupo Crook Confirmed By:JACEK RESENDEZ
--- NOTE | 2019-07-21 12:41 | EKG12_ITS ---
Test Reason : CP Blood Pressure : / mmHG Vent. Rate : 072 BPM Atrial Rate : 277 BPM P-R Int : 000 ms QRS Dur : 090 ms QT Int : 418 ms P-R-T Axes : 000 000 050 degrees QTc Int : 457 ms Atrial fibrillation [place], dynamic ST depression anteriorly and laterally Consider right ventricular invol vement in acute inferior infarct Abnormal ECG When compared with ECG of 20-JUL-2019 05:50, MANUAL COMPARISON REQUIRED, DATA IS UNCONFIRMED Confirmed by JACEK RESENDEZ ([id number]), graphic editor LUISA CHAPIN ([id number]) on 07/22/2019 1:36:18 PM Referred By: Grupo Crook Confirmed By:JACEK RESENDEZ
--- NOTE | 2019-07-21 13:00 | ECHOCS_ITS ---
Reason For Study: CAD/ASHD Procedure This was a 2D Doppler, Color Flow transthoracic echocardiogram. The study was technically difficult. Contrast injection was performed. Patient scanned supine due to amputation of left Great Toe on 07/20/2019. Exam performed portable in patient room. Left Ventricle Normal size and thickness. The estimated ejection fraction is 65 %. Stage 2 diastolic dysfunction. No regional wall motion abnormalities noted. Right Ventricle Normal size and thickness. Normal systolic function. Atria Normal left atrium. Normal right atrium. Normal atrial septum. Mitral Valve The mitral valve is structurally normal. No prolapse or stenosis seen. Mild (1+) mitral valve insufficiency. Tricuspid Valve Normal tricuspid valve. Unable to estimate RV systolic pressure due to insufficient tricuspid regurgitant envelope. Aortic Valve Normal aortic valve. Trisinus/trileaflet aortic valve. Pulmonic Valve The pulmonic valve is not well visualized. Great Vessels Normal aortic root. Normal arch. Normal inferior vena cava. Inferior vena cava collapse with sniff. Pericardium/Pleural No pericardial effusion. Medication Diluted definity 3ml given slow IV push to enhance endocardial definition. MMode/2D Measurements & Calculations LVIDd: 5.3 cm IVSd: 1.1 cm Ao root diam: 3.5 cm LVIDs: 3.5 cm LVPWd: 1.2 cm LA dimension: 3.9 cm FS: 34.3 % LAV(MOD-bp): 52.7 ml LA A4 area: 17.2 cm2 RA A4 area: 12.7 cm2 LAV(MOD-bp) Indexed: 24.2 ml/m2 LAV(MOD-sp2): 57.5 ml LAV(MOD-sp4): 46.8 ml Time Measurements MV dec time: 0.17 sec Doppler Measurements & Calculations MV E max iván: 92.9 cm/sec MV V2 max: 95.1 cm/sec MV P1/2t max iván: 97.7 cm/sec MV A max iván: 79.4 cm/sec MV max P.6 mmHg MV P1/2t: 51.5 msec MV E/A: 1.2 MV V2 mean: 52.4 cm/sec MV dec slope: 555.3 cm/sec2 MV mean P.3 mmHg MV V2 VTI: 20.7 cm MVA(P1/2t): 4.3 cm2 Ao V2 max: 155.8 cm/sec LV V1 max: 96.3 cm/sec PA V2 max: 98.2 cm/sec Ao max P.7 mmHg LV V1 max P.7 mmHg Ao V2 mean: 89.5 cm/sec LV V1 mean P.3 mmHg Ao mean P.9 mmHg LV V1 mean: 50.0 cm/sec Ao V2 VTI: 30.1 cm LV V1 VTI: 17.9 cm Interpretation Summary The estimated ejection fraction is 65 %. Stage 2 diastolic dysfunction. Mild (1+) mitral valve insufficiency. Unable to estimate RV systolic pressure due to insufficient tricuspid regurgitant envelope. Pt appears to be in atrial flutter. The study was technically difficult. Contrast injection was performed. There is no comparison study available. Ordering Physician: Mayelin Yang Referring Physician: Grupo Crook Performed By: Jai Stoll RCS
--- NOTE | 2019-07-21 13:04 | PCM.PN.BLA ---
Progress Note Patient complains of chest pain, sudden onset, retrosternal chest pain, not radiating, relieved with nitroglycerin and no associated symptoms. EKG performed and revealed ST segment depression and T wave inversion in leads V2 and V3 and those changes are new compared to admission EKG. Patient had a history of CAD status post stents x6, he had 3 stents placed on July 22, 2018. He has been off Plavix since Friday because he went for surgery yesterday. Plavix was started today. Plan: Stat cardiac enzymes, 2D echocardiogram, transfer to PCU, cardiology consult. STROKE Vital Signs/Narrative: Vital Signs Temp Pulse Resp BP BP Pulse Ox 07/21/19 12:55 69 132/75 H 94 07/21/19 12:45 74 18 108/61 94 07/21/19 12:35 73 18 112/40 L 95 07/21/19 12:31 66 120/79 07/21/19 12:30 98.6 F 66 18 120/79 96 07/21/19 09:31 72 138/62 H
[2019-07-21] MEDS: Clopidogrel Bisulfate 75 MG Tablet PO (13:15)
--- NOTE | 2019-07-21 13:44 | NURSING ---
Patient states that previously reported chest pain is almost all gone. He had stated at approximately 1340 that chest pain was a 1/10. He is breathing easily and without any apparent distress. Talking to visitor in his room.
--- NOTE | 2019-07-21 13:49 | NURSING ---
report called to [facility] and talked with pratima velasquez
--- NOTE | 2019-07-21 14:33 | CON.PCM_ITS ---
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 Yang History of Present Illness: The patient is a 79 year old Mwith DM neuropathy, presented 07/16 with 2 weeks of progressive L foot swelling, redness, and drainage. No pain due to neuropathy. He had hit his toe on a door. No fever or chills. Came to ED, started on vanc/zosyn, taken to OR 07/20 for resection. Feeling better, family at bedside, no n/v/d on abx. Full ROS performed and neg except as noted above. - Medical History Past Medical History (Chronic Problems): Chronic Problems Diabetic foot ulcer (Chronic) Peripheral neuropathy (Chronic) Obesity (Chronic) History of pulmonary embolism (Chronic) Hypertension (Chronic) Hyperlipidemia (Chronic) History of CVA (cerebrovascular accident) (Chronic) CKD (chronic kidney disease) stage 3, GFR 30-59 ml/min (Chronic) Ulcer of right foot with necrosis of bone (Chronic) Osteomyelitis (Chronic) Ulcer of right foot with fat layer exposed (Chronic) GERD (gastroesophageal reflux disease) (Chronic) Coronary artery disease involving [place] coronary artery of [place] heart (Chronic) Gout (Chronic) Lumbosacral stenosis (Chronic) Lumbosacral radiculopathy (Chronic) PAD (peripheral artery disease) (Chronic) Diabetes mellitus type II, controlled (Chronic) Allergies/Adverse Reactions: Allergies allopurinol Adverse Reaction (Verified 07/16/19 11:02) Other exenatide [From Byetta] Adverse Reaction (Verified 07/16/19 11:02) Other insulin aspart [From Novolog] Adverse Reaction (Verified 07/16/19 11:02) Other insulin glargine, human recombin. 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 Clopidogrel Bisulfate [Plavix] 75 mg PO DAILY 01/15/17 Pantoprazole Sodium [Protonix] 20 mg PO DAILY 01/15/17 Probenecid 500 mg PO BID 11/25/17 Alirocumab [Praluent Pen] 75 mg SQ UD 07/16/19 Apixaban [Eliquis] 2.5 mg PO BID 07/16/19 Metoprolol Tartrate [Lopressor 50 mg PO DAILY@0807/16/19 (beta vania)] glipiZIDE [Glucotrol] 10 mg PO BID 07/16/19 traMADol [Ultram] 50 mg PO Q6H PRN PRN 07/16/19 - Social History SMOKING STATUS:: Former smoker Vital Signs Temp Pulse Resp BP Pulse Ox 98.6 F 64 18 148/69 H 98 07/21/19 12:30 07/21/19 13:44 07/21/19 13:44 07/21/19 13:44 07/21/19 13:44 Oxygen Flow Rate (L/min) 2 Oxygen Delivery Method Room Air Weight: 113.8 kg Body Mass Index (BMI) 41.7 Microbiology Past 72 Hours 07/16/19 12:06 Blood Culture - Final Blood Culture (Wb) - Left Wrist No growth in 5 days. 07/16/19 11:30 Blood Culture - Final Blood Culture (Wb) - Arm Right No growth in 5 days. 07/20/19 14:06 Gram Stain - Final Tissue - Toe Wound Culture - Preliminary No growth-Final to follow 07/20/19 13:59 Gram Stain - Final Tissue - Toe Wound Culture - Preliminary No growth-Final to follow Laboratory Tests Past 24 Hrs 07/21/19 07/21/19 07/21/19 07:40 07:40 13:06 WBC 8.3 RBC 3.42 L Hgb 9.7 L Hct 30.6 L MCV 89.5 MCH 28.4 MCHC 31.7 L RDW Std Deviation 44.3 H RDW Coeff of Suraj 13.7 Plt Count 247 MPV 9.5 Immature Gran % (Auto) 1.000 H Neut % (Auto) 72.0 H Lymph % (Auto) 16.3 L Ralls % (Auto) 8.9 Eos % (Auto) 1.3 Baso % (Auto) 0.5 Absolute Neuts (auto) 6.0 Absolute Lymphs (auto) 1.35 Nucleated RBC % 0 Sodium 140 Potassium 4.3 Chloride 114 H Carbon Dioxide 21.0 Anion Gap 5 BUN 15 Creatinine 1.17 Estim Creat Clear Calc 43.80 Est GFR (MDRD) Af Amer 77 Est GFR (MDRD) Non-Af 64 BUN/Creatinine Ratio 12.8 Glucose 218 H Calcium 8.6 Troponin I < 0.015 - Other Studies Radiology: [] reviewed Other Studies: [] Route of nutrition/ use of supplements: [] Nutritional Intake: [] IV Site: [] Fierro Catheter: [] - Physical Exam General: Alert, Oriented x3, Cooperative, No apparent distress HEENT: Atraumatic, PERRLA, EOMI Neck: Supple, No Nodes Lungs: Clear to auscultation, Normal air movement Cardiovascular: Regular rate, Regular Rhythm Abdomen: Soft, Non Tender, Non-Distended Extremities: Edema Skin: Incision - reviewed photos IV Site: Peripheral, without redness Musculoskeletal: No Tenderness to Palpation of Joints or Extremities Neurological: Cranial nerves II-XII grossly intact - Assessment/Plan Antibiotics: [] Assessment/Plan: [] Active and Suspected Problems 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 On cefazolin. With good source control and possible vascular intervention, may be candidate for po abx at discharge. Will follow, thank you.
--- NOTE | 2019-07-21 14:36 | NURSING ---
AT 1230 PT STATED HE WAS HAVING CHEST PAIN RATED AT 9- VS OBTAINED AND DR GUZMÁN NOTIFIED VIA CB INDEPENDENT JEWELER- NITRO GIVEN X1 AND PT STARTED TO HAVE RELIEF OF CHEST - BP DROPPED-- BP BACK TO NORMAL RANGECHEST PAIN DECREASED OVER 30 MIN TO 2 - PT WAS IN CHAIR AND MOVED PT TO BED AND PAIN INCREASED BACK TO 4 AND THEN DECREASED TO 1 - TROP OBTAINED AND DR COSTA SEE PT EKG DONE - PT MOVED TO PCU AND REPORT CALLED-VS CHARTED - BP BACK TO NORMAL RANGE
--- NOTE | 2019-07-21 15:20 | PCM.PN.ORT ---
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 was present during entire encounter. Patient is 1 day status post partial amputation of the first ray of the left foot. Patient denies any pain to his left foot. Patient states that he is not placed any weight on his left foot as well. Patient states that he had increased chest pain earlier today. Patient was given nitroglycerin that alleviated his pain. An EKG was performed showing changes. Patient was then transferred to the progressive care unit and a cardiology consult was placed. Patient denies any other symptoms at this time, states that his chest pain is gone. Patient denies fever, chills, nausea, vomiting, shortness of breath. Objective: Left lower extremity exam: Dressing is clean, dry, intact to the left foot and ankle. No evidence of strikethrough noted. Capillary fill time is delayed in remaining digits of left foot. No ulcerations noted in any remaining digits of the left foot. Neurological: Gross and protective sensation is absent to the digits of the left foot. Musculoskeletal: Deferred at this time Edwards's sign and Katie's sign are negative to the left lower extremity. - Physical Exam Vitals/I&O's: Vital Signs Temp Pulse Resp BP Pulse Ox 98.6 F 64 18 148/69 H 98 07/21/19 12:30 07/21/19 13:44 07/21/19 13:44 07/21/19 13:44 07/21/19 13:44 Oxygen Flow Rate (L/min) 2 Oxygen Delivery Method Room Air Weight: 113.8 kg Body Mass Index (BMI) 41.7 Intake and Output for Last 24 Hours 07/19/19 07/20/19 07/21/19 23:59 23:59 23:59 Intake Total 1237.08 / 1237.08 792.00 / 992.00 700 / 700 Output Total 1000 / 1000 725 / 1150 1200 / 1200 Balance 237.08 / 237.08 67.00 / -158.00 -500 / -500 General: Alert, Oriented x3, Cooperative HEENT: Atraumatic, PERRLA Neck: Supple, No JVD Lungs: Clear to auscultation, Normal air movement Abdomen: Bowel Sounds Present, Soft, Non Tender, Non-Distended, Obese Extremities: No Calf Tenderness, Diminished Peripheral Pulses Musculoskeletal: No Tenderness to Palpation of Joints or Extremities - To the left foot and ankle Psych/Mental Status: Alert and oriented to time, place, person, mood and affect Microbiology Past 72 Hours 07/16/19 12:06 Blood Culture (Wb) - Left Wrist Blood Culture - Final No growth in 5 days. 07/16/19 11:30 Blood Culture (Wb) - Arm Right Blood Culture - Final No growth in 5 days. 07/20/19 14:06 Tissue - Toe Gram Stain - Final 07/20/19 14:06 Tissue - Toe Wound Culture - Preliminary No growth-Final to follow 07/20/19 13:59 Tissue - Toe Gram Stain - Final 07/20/19 13:59 Tissue - Toe Wound Culture - Preliminary No growth-Final to follow Laboratory Results 07/20/19 16:04: POC Glucose 178 H 07/20/19 21:44: POC Glucose 319 H 07/21/19 06:31: POC Glucose 200 H 07/21/19 07:40: WBC 8.3, RBC 3.42 L, Hgb 9.7 L, Hct 30.6 L, MCV 89.5, MCH 28.4, MCHC 31.7 L, RDW Std Deviation 44.3 H, RDW Coeff of Suraj 13.7, Plt Count 247, MPV 9.5, Immature Gran % (Auto) 1.000 H, Neut % (Auto) 72.0 H, Lymph % (Auto) 16.3 L, [place] % (Auto) 8.9, Eos % (Auto) 1.3, Baso % (Auto) 0.5, Absolute Neuts (auto) 6.0, Absolute Lymphs (auto) 1.35, Nucleated RBC % 0 07/21/19 07:40: Sodium 140, Potassium 4.3, Chloride 114 H, Carbon Dioxide 21.0, Anion Gap 5, BUN 15, Creatinine 1.17, Estim Creat Clear Calc 43.80, Est GFR (MDRD) Af Amer 77, Est GFR (MDRD) Non-Af 64, BUN/Creatinine Ratio 12.8, Glucose 218 H, Calcium 8.6 07/21/19 11:51: POC Glucose 298 H 07/21/19 13:06: Troponin I < 0.015 Current Medications Acetaminophen (Tylenol) 650 mg PO Q6H PRN PRN PRN Reason: Pain Score 1-3/Temp > 100.7 F Last Admin: 07/21/19 09:35 Dose: 650 mg Documented by: Apixaban (Eliquis) 2.5 mg PO BID [facility] Last Admin: 07/21/19 12:19 Dose: Not Given Documented by: Clopidogrel Bisulfate (Plavix) 75 mg PO DAILY [facility] Last Admin: 07/21/19 13:15 Dose: 75 mg Documented by: Glipizide (Glucotrol) 10 mg PO BID@0800,1700 [facility] Last Admin: 07/21/19 09:31 Dose: 10 mg Documented by: Glucagon () 1 mg IM .X1 PRN PRN Reason: Hypoglycemia Hydralazine HCl (Apresoline Iv) 10 mg IV Q8H PRN PRN PRN Reason: for SBP>160 Dextrose (Dextrose 10%-Water) 250 mls @ 999 mls/hr IV .Q16M PRN; Protocol PRN Reason: HYPOGLYCEMIA Sodium Chloride () 250 mls @ 15 mls/hr IV .[id number] PRN PRN Reason: Saline Flush Last Infusion: 07/21/19 06:53 Dose: 15 mls/hr Documented by: Cefazolin Sodium () 1 gm in 50 mls @ 100 mls/hr IV Q8 [facility] Last Infusion: 07/21/19 06:53 Dose: Infused Documented by: Insulin Human Lispro (Humalog Kwikpen (Bkc)) 0 unit SC [facility]; Protocol Last Admin: 07/21/19 13:06 Dose: 6 u Documented by: Metoprolol Tartrate (Lopressor (Beta Deborah)) 25 mg PO DAILY@2000 [facility] Last Admin: 07/20/19 19:57 Dose: 25 mg Documented by: Metoprolol Tartrate (Lopressor (Beta Deborah)) 50 mg PO DAILY@0800 [facility] Last Admin: 07/21/19 09:31 Dose: 50 mg Documented by: Nitroglycerin (Nitrostat) 0.4 mg SUBLINGUAL Q5M PRN PRN Reason: CARDIAC/CHEST PAIN Last Admin: 07/21/19 12:31 Dose: 0.4 mg Documented by: Pantoprazole Sodium (Protonix) 20 mg PO DAILY [facility] Last Admin: 07/21/19 09:36 Dose: 20 mg Documented by: Sodium Chloride () 10 - 40 ml IV UD PRN PRN Reason: SALINE FLUSH Last Admin: 07/21/19 06:24 Dose: 20 ml Documented by: Sodium Chloride () 10 - 40 ml IV UD PRN PRN Reason: SALINE FLUSH Timolol Maleate (Timoptic) 1 drop EACH EYE BID [facility] Last Admin: 07/21/19 09:36 Dose: 1 drop Documented by: Tramadol HCl (Ultram) 150 mg PO 0600 [facility] Last Admin: 07/21/19 06:15 Dose: 150 mg Documented by: Tramadol HCl (Ultram) 50 mg PO 1400 [facility] Last Admin: 07/20/19 16:07 Dose: 50 mg Documented by: Medical Necessity - Tobacco Use Smoking Status: Former smoker Tobacco Use: Cigarettes Assessment/Plan All Active Problems 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 Patient is 1 day status post left foot partial first ray amputation. At this time, I would like to keep dressing clean, dry and intact. Please reinforce as necessary. I do apologize about the miscommunication for the patient's vascular intervention. I was under the assumption that vascular intervention would be performed today, July 21. Patient is scheduled for an angiogram on July 23. Patient is to remain nonweightbearing to left lower extremity with assistive devices. Patient may benefit from a subacute rehab facility on discharge pending his improvement. Continue antibiotics per infectious disease. We are awaiting the culture results from the operation yesterday. Continue DVT prophylaxis per primary medicine. At this time, no further surgical intervention from my point of view. Patient will follow-up with me in the office next week for further evaluation. I will continue to follow patient closely and update accordingly. Thank you very much for allowing me to take part in the care of your patient. Code Visit Inpatient E&M: 69610 Init Hosp L2
--- NOTE | 2019-07-21 15:40 | PCM.CONS.C ---
Problem List (1) Peripheral vascular disease Status: Acute (2) History of pulmonary embolism Status: Chronic (3) Hypertension Status: Chronic (4) Hyperlipidemia Status: Chronic (5) History of CVA (cerebrovascular accident) Status: Chronic (6) CKD (chronic kidney disease) stage 3, GFR 30-59 ml/min Status: Chronic (7) Coronary artery disease involving [place] coronary artery of [place] heart Status: Chronic (8) PAD (peripheral artery disease) Status: Chronic (9) Diabetes mellitus type II, controlled Status: Chronic Reason for Consult Date of Consultation: 07/21/19 Reason for Consultation: Unstable angina, coronary disease, status post CABG, dynamic EKG changes, hypertension, diabetes, status post angioplasty, peripheral vascular disease History of Present Illness: The patient is a 79 year old M, cardiac patient of Dr. Bundy in [place], with a history of hypertension, diabetes, history of pulmonary embolism on chronic Eliquis therapy, hypercholesterolemia, coronary disease status post acute myocardial infarction at age 57 at which time he had emergent angioplasty and stenting in [place]. He apparently had additional stenting a year or 2 after that at what he believes was [facility]. This then gave way to repeat catheterization and eventual three-vessel bypass surgery. He apparently had a subsequent catheterization on July 22, 2018 at [facility] in [place], he described it 1 of his vein grafts was occluded, but his other 2 were open. At that time he received 3 stents to an unknown artery which he believes was involving the [place] coronary arteries. His anginal symptoms are substernal chest pain and shortness of breath as well as indigestion feeling. All of these resolved after his most recent angioplasty in July 2018. Approximately 2 weeks ago the patient injured his foot by getting it caught under a door, initially was not painful but then apparently turned black under his foot. He sought medical attention and was admitted here on 07/16/2019, and was found to have a gangrenous metatarsal as well as osteomyelitis, and underwent surgical resection of his fifth metatarsal today.. Apparently in anticipation of his surgical procedure, his Plavix and Eliquis were discontinued several days ago. The patient was eating lunch today and developed severe midsternal substernal chest pressure similar to his previous angina. An EKG was performed which showed normal sinus rhythm with new anterior ST segment depression. 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 The patient's pain was relieved with a single sublingual nitroglycerin, and nitroglycerin paste was applied. The patient was reloaded with his Plavix but his Eliquis was not restarted. Subsequent of that his EKG deteriorated to atrial flutter with controlled ventricular response. Currently the patient is resting comfortably, denies any chest pain, angina, shortness of breath. He is awaiting his echocardiogram. Past Medical History Allergies/Adverse Reactions: Allergies allopurinol Adverse Reaction (Verified 07/16/19 11:02) Other exenatide [From Byetta] Adverse Reaction (Verified 07/16/19 11:02) Other insulin aspart [From Novolog] Adverse Reaction (Verified 07/16/19 11:02) Other insulin glargine, human recombin. a [From Lantus] Adverse Reaction (Verified 07/16/19 11:02) Other morphine Adverse Reaction (Verified 07/16/19 11:02) Other DOES NOT HELP PAIN, MAKES ME FEEL OUT OF IT [id number] Reductase Inhibitor Adverse Reaction (Verified 07/16/19 11:02) Other Home Medications: Ambulatory Orders Medication Instructions Recorded Furosemide [Lasix] 80 mg PO DAILY 05/20/14 Metoprolol Tartrate [Lopressor 25 mg PO DAILY@199905/20/14 (beta vania)] Timolol 0.5% [Timoptic] 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 Clopidogrel Bisulfate [Plavix] 75 mg PO DAILY 01/15/17 Pantoprazole Sodium [Protonix] 20 mg PO DAILY 01/15/17 Probenecid 500 mg PO BID 11/25/17 Alirocumab [Praluent Pen] 75 mg SQ UD 07/16/19 Apixaban [Eliquis] 2.5 mg PO BID 07/16/19 Metoprolol Tartrate [Lopressor 50 mg PO DAILY@0800 07/16/19 (beta vania)] glipiZIDE [Glucotrol] 10 mg PO BID 07/16/19 traMADol [Ultram] 50 mg PO Q6H PRN PRN 07/16/19 Past Medical History (Chronic Problems): Chronic Problems Diabetic foot ulcer (Chronic) Peripheral neuropathy (Chronic) Obesity (Chronic) History of pulmonary embolism (Chronic) Hypertension (Chronic) Hyperlipidemia (Chronic) History of CVA (cerebrovascular accident) (Chronic) CKD (chronic kidney disease) stage 3, GFR 30-59 ml/min (Chronic) Ulcer of right foot with necrosis of bone (Chronic) Osteomyelitis (Chronic) Ulcer of right foot with fat layer exposed (Chronic) GERD (gastroesophageal reflux disease) (Chronic) Coronary artery disease involving [place] coronary artery of [place] heart (Chronic) Gout (Chronic) Lumbosacral stenosis (Chronic) Lumbosacral radiculopathy (Chronic) PAD (peripheral artery disease) (Chronic) Diabetes mellitus type II, controlled (Chronic) Surgical History: angioplasty, cholecystectomy, coronary bypass surgery, total knee arthroplasty, tonsillectomy, - - Vein stripping, rectal fistula repair, ORIF fractured leg, bilateral cataract extraction - *Family History Paternal History Items: - - The patient's father at age of 69 with a history of coronary artery disease and diabetes mellitus. The patient's mother lived to be 95 years of age, and passed of old age. Smoking Status: Former smoker Tobacco Use: Cigarettes Review of Systems - Review of Systems General: Denies: Fever, Night Sweats, Fatigue Cardiovascular: Reports: Chest Discomfort, Chest Discomfort at Rest, Chest Pressure, Chest Tightness, Chest Heaviness. Denies: Shortness of Breath, Orthopnea, PND, Peripheral Edema, Palpitations, Lightheadedness, Dizziness, Near Syncope, Syncope Respiratory: Denies: Cough, Sputum Production, Hemoptysis Gastrointestinal: Denies: Hematemesis, Hematochezia, Melena Genitourinary: Denies: Dysuria, Hematuria Skin: Denies: Rash Subjectve: Patient resting comfortably, no acute distress. Objective: Vital Signs Temp Pulse Resp BP Pulse Ox 98.6 F 64 18 148/69 H 98 07/21/19 12:30 07/21/19 13:44 07/21/19 13:44 07/21/19 13:44 07/21/19 13:44 Oxygen Flow Rate (L/min) 2 Oxygen Delivery Method Room Air Weight: 250 lb 14.177 oz Body Mass Index (BMI) 41.7 Intake and Output for Last 24 Hours 07/19/19 07/20/19 07/21/19 23:59 23:59 23:59 Intake Total 1237.08 / 1237.08 792.00 / 992.00 700 / 700 Output Total 1000 / 1000 725 / 1150 1200 / 1200 Balance 237.08 / 237.08 67.00 / -158.00 -500 / -500 General: Awake, Alert, Oriented x 3 HEENT: PERRL, EOMI, Sclera Non Icteric Neck: Supple, Good ROM, No Lymph Node Enlargement Lungs: Clear to auscultation Cardiovascular: Regular Rhythm, Normal S1, Normal S2, No Murmurs, No Rubs, No Gallops Vascular: No Carotid Bruits, Normal Femoral Pulses, Normal Radial Pulses, Normal Dorsalis Pedal Pulse, Normal Posterior Tibial Pulses Abdomen: Bowel Sounds Present, Soft, Non Tender, No HSM, No Organomegaly Extremities: No Cyanosis, No Clubbing, No edema Neurological: No Focal Motor or Sensory Deficit 07/21/19 07:40: WBC 8.3, RBC 3.42 L, Hgb 9.7 L, Hct 30.6 L, MCV 89.5, MCH 28.4, MCHC 31.7 L, Plt Count 247, MPV 9.5, Immature Gran % (Auto) 1.000 H, Neut % (Auto) 72.0 H, Lymph % (Auto) 16.3 L, [place] % (Auto) 8.9, Eos % (Auto) 1.3, Baso % (Auto) 0.5, Absolute Neuts (auto) 6.0, Nucleated RBC % 0 07/21/19 07:40: Sodium 140, Potassium 4.3, Chloride 114 H, Carbon Dioxide 21.0, Anion Gap 5, BUN 15, Creatinine 1.17, Est GFR (MDRD) Af Amer 77, Est GFR (MDRD) Non-Af 64, BUN/Creatinine Ratio 12.8, Glucose 218 H, Calcium 8.6 07/21/19 13:06: Troponin I < 0.015 Rhythm: EKG: As above ECHO: Pending Stress Test: Cardiac Cath: PCI: CT Surgery: Holter monitor: EPS: PPM: CXR: Chest CT Scan: Assessment/Plan 1. Coronary artery disease: The patient has known multivessel coronary artery disease with status post 6 stents total, last 3 placed on July 22, 2018 at [facility] superimposed on multivessel bypass surgery which took place several years ago and allegedly an occluded vein graft to 1 of his territories. I recommended that we obtain the old records from [facility] to evaluate his coronary anatomy. The patient's Plavix and Eliquis were discontinued immediately prior to his metatarsal surgery today followed by recurrent substernal chest pressure similar to his previous angina with associated dynamic EKG changes consistent with possible posterior or anterior ischemia. Patient is evidence of known inferior posterior wall myocardial infarction. I would recommend the patient continue baby aspirin, be reloaded with Plavix 300 mg x 1, followed by 75 mg a day, nitroglycerin paste 1 inch every 6 hours, but would recommend holding off on his Eliquis at this time. I would recommend holding off on catheterization for 1 day to ensure that he has no significant bleeding from his fresh wound site in his foot. At some point the patient will require a repeat diagnostic coronary angiogram with graft angiography, probably on Friday. I have corresponded with Dr. Facundo Menard, who does not wish to combine his peripheral vascular analysis with our diagnostic coronary catheterization. The patient may be set up for an elective left lower extremity peripheral vascular angiogram at some point in the future with Dr. Menard. In the meantime I have ordered a 2D echo with Doppler to document his LV function and pulmonary pressures. If the patient is evidence of severe pulmonary hypertension, we may want to consider pulmonary embolism in the differential for his chest pain and EKG abnormalities. 2. Atrial flutter: The patient developed atrial flutter with controlled ventricular response after his chest pain. Apparently has a history of atrial fibrillation in the past although that has not been established officially. He will require long-term anticoagulation therapy going forward but would hold off on this until after his catheterization has been completed. Would recommend half dose Lovenox 40 mg subcu twice daily for now, followed by full dose Lovenox if he has no significant seepage from his new wound site. 3. Hyperlipidemia: Recommend obtaining a fast lipid profile. Unfortunately the patient is unable to tolerate statins. Recommend starting gemfibrozil 600 mg p.o. twice daily and repeating his lipid profile in 6 weeks time. 4. Peripheral vascular disease: Once again I spoke with Dr. Menard regarding his lower extremity angiogram, and informed him of the patient's condition. Dr. Menard relayed to me to go forward with analyzing and correcting his coronary artery disease first prior to any diagnostic lower extremity angiogram. This can be rescheduled as an outpatient. 5. Discussed with Dr. Whittaker for. Thank you very much for the opportunity to participate in the cardiac care of your patient. Consultation took place between 320 and 4:55 PM. Code Visit Inpatient E&M: 92700 Init Hosp L2
[2019-07-21] MEDS: traMADol 50 MG Tablet PO (15:57)
[2019-07-21 16:05] LABS: Bedside Glucose 375 mg/dL (70-110)
[2019-07-21] MEDS: Metoprolol Tartrate 25 MG Tablet PO (20:26)
[2019-07-21] MEDS: Enoxaparin 60 MG/0.6 ML Syringe 50 MG SC (21:12)
[2019-07-21 22:35] LABS: Bedside Glucose 271 mg/dL (70-110)
[2019-07-22] VITALS (12 sets, daily range): BP systolic 123–150; BP diastolic 59–85; PULSE 69–90; RESP 14–22; TEMP 36.4–36.7; O2SAT 95–99
[2019-07-22] MEDS: 0.9% Saline Lock 10 ML Syringe IV ×2 (05:18→09:20)
[2019-07-22] MEDS: Cefazolin 1 GM/50 ML BAG IV ×3 (05:18→21:47)
[2019-07-22] MEDS: traMADol 50 MG Tablet 150 MG PO (05:22)
[2019-07-22] MEDS: Insulin Lispro 100 UNIT/ML INSULN.PEN SC ×4 (06:39→21:53)
[2019-07-22 07:15] LABS: Bedside Glucose 206 mg/dL (70-110)
--- NOTE | 2019-07-22 08:29 | PCM.PN.CARD ---
Subjectve: Patient doing well this morning. No further chest pain. Telemetry shows atrial flutter with controlled ventricular response. Left fifth metatarsal wound is clean/dry/intact without evidence of oozing despite reloading with Plavix and subcu Lovenox therapy. Objective: Vital Signs Temp Pulse Resp BP Pulse Ox 97.5 F L 90 18 150/73 H 95 07/22/19 05:12 07/22/19 07:02 07/22/19 05:12 07/22/19 05:12 07/22/19 05:12 Oxygen Flow Rate (L/min) 2 Oxygen Delivery Method Room Air Weight: 250 lb 14.177 oz Body Mass Index (BMI) 41.7 Intake and Output for Last 24 Hours 07/20/19 07/21/19 07/22/19 23:59 23:59 23:59 Intake Total 792.00 / 992.00 1578.25 / 1578.25 105.75 / 105.75 Output Total 725 / 1150 1725 / 1725 490 / 490 Balance 67.00 / -158.00 -146.75 / -146.75 -384.25 / -384.25 General: Awake, Alert, Oriented x 3 HEENT: PERRL, EOMI, Sclera Non Icteric Neck: Supple, Good ROM, No Lymph Node Enlargement Lungs: Clear to auscultation Cardiovascular: Regular Rhythm, Normal S1, Normal S2, No Murmurs, No Rubs, No Gallops Vascular: No Carotid Bruits, Normal Femoral Pulses, Normal Radial Pulses, Normal Dorsalis Pedal Pulse, Normal Posterior Tibial Pulses Abdomen: Bowel Sounds Present, Soft, Non Tender, No HSM, No Organomegaly Extremities: No Cyanosis, No Clubbing, No edema Neurological: No Focal Motor or Sensory Deficit 07/21/19 13:06: Troponin I < 0.015 07/21/19 15:30: Troponin I 0.025 07/21/19 18:56: Troponin I 0.016 Rhythm: EKG: ECHO: Stress Test: Cardiac Cath: PCI: CT Surgery: Holter monitor: EPS: PPM: CXR: Chest CT Scan: Medical Necessity - Tobacco Use Smoking Status: Former smoker Tobacco Use: Cigarettes Assessment/Plan 1. Coronary artery disease: The patient has known multivessel coronary artery disease with status post 6 stents total, last 3 placed on July 22, 2018 at [facility] superimposed on multivessel bypass surgery which took place several years ago and allegedly an occluded vein graft to 1 of his territories. We obtain the old records from his catheterization in July 2018 which demonstrated severe [place] LAD disease, occluded saphenous vein graft to the RCA, widely patent saphenous vein graft to the obtuse marginal, and widely patent FULLER to the LAD. The patient underwent angioplasty and drug-eluting stenting x3 to the [place] right coronary artery receiving 3 Ye resolute stents. The patient's Plavix and Eliquis were discontinued immediately prior to his metatarsal surgery several days ago, followed by recurrent substernal chest pressure similar to his previous angina with associated dynamic EKG changes consistent with possible posterior or anterior ischemia. Patient is evidence of known inferior posterior wall myocardial infarction. I would recommend the patient continue baby aspirin, be reloaded with Plavix 300 mg x 1, followed by 75 mg a day, nitroglycerin paste 1 inch every 6 hours, but would recommend holding off on his Eliquis at this time. At this point the patient has demonstrated he has no significant oozing from his wound site with the readministration of aspirin and subcu Lovenox. After talking with Dr. Menard yesterday, we will postpone his left lower extremity peripheral angiogram. Would recommend we proceed with diagnostic left heart catheterization and graft angiography tomorrow morning 07/23/2019. Patient may eat today. We will provide gentle hydration today to protect his kidneys for acute on chronic renal insufficiency. Patient's 2D echo with Doppler was performed on 07/21/2019 with the following results: The estimated ejection fraction is 65 %. Stage 2 diastolic dysfunction. Mild (1+) mitral valve insufficiency. Unable to estimate RV systolic pressure due to insufficient tricuspid regurgitant envelope. Pt appears to be in atrial flutter. The study was technically difficult. Contrast injection was performed. There is no comparison study available. 2. Atrial flutter: The patient developed atrial flutter with controlled ventricular response after his chest pain. Apparently has a history of atrial fibrillation in the past although that has not been established officially. He will require long-term anticoagulation therapy going forward but would hold off on this until after his catheterization has been completed. Would consider DC cardioversion 3 weeks after re-administration of anticoagulation orally. Would recommend continuing half dose Lovenox 40 mg subcu twice daily for now, followed by full dose Lovenox if he has no significant seepage from his new wound site. 3. Hyperlipidemia: Recommend obtaining a fast lipid profile. Unfortunately the patient is unable to tolerate statins. Recommend starting gemfibrozil 600 mg p.o. twice daily and repeating his lipid profile in 6 weeks time. 4. Peripheral vascular disease: Once again I spoke with Dr. Menard regarding his lower extremity angiogram, and informed him of the patient's condition. Dr. Menard relayed to me to go forward with analyzing and correcting his coronary artery disease first prior to any diagnostic lower extremity angiogram. This can be rescheduled as an outpatient. 5. Discussed with Dr. Whittaker for. Thank you very much for the opportunity to participate in the cardiac care of your patient. Consultation took place between 320 and 4:55 PM. Code Visit Inpatient E&M: 37160 Subs Hosp L2
[2019-07-22] MEDS: Metoprolol Tartrate 50 MG Tablet PO (08:35)
[2019-07-22] MEDS: Enoxaparin 60 MG/0.6 ML Syringe 50 MG SC ×2 (08:35→21:49)
[2019-07-22] MEDS: glipiZIDE 10 MG Tablet PO ×2 (08:35→16:24)
[2019-07-22] MEDS: Pantoprazole Sodium 20 MG Tablet PO (08:36)
[2019-07-22] MEDS: Timolol 0.5% 5ML OPTH.BTL 1 DRP EACH EYE ×2 (08:36→21:49)
[2019-07-22] MEDS: Clopidogrel Bisulfate 75 MG Tablet PO (08:36)
[2019-07-22] MEDS: 0.9% Normal Saline 1,000 ML 75 ML IV (09:19)
--- NOTE | 2019-07-22 09:57 | CASEMGMT ---
Addendum entered by Chelsie Martin 07/22/19 11:32: Patient was concerned with finances with SW and he mentioned it to therapy. SW called his insurance and his SNF coverage is as follows: Days 1-20 covered at 100% and days 21-100 there is a daily co-pay of $160. SW will talk with patient and his letting them know this information. Chelsie HUGHES Original Note: SW noted patient is not doing well with therapy on maintaining NWB status. SW spoke with patient and explained he would benefit from going to a detention facility for rehab. At first he thought SW was talking about outpatient therapy, but then SW explained he would go to one of these facilities and stay to complete rehab. He then understood. SW gave him a list of facilities that are in network with his insurance. SW told him we can see how he does with therapy today and SW will talk with his as well. Chelsie HUGHES
--- NOTE | 2019-07-22 10:37 | PCM.PN.ID ---
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 - Physical Exam Vitals/I&O's: Vital Signs Temp Pulse Resp BP Pulse Ox 98.0 F 72 14 142/85 H 96 07/22/19 08:33 07/22/19 08:35 07/22/19 08:33 07/22/19 08:33 07/22/19 08:33 Oxygen Flow Rate (L/min) 2 Oxygen Delivery Method Room Air Weight: 113.8 kg Body Mass Index (BMI) 41.7 Intake and Output for Last 24 Hours 07/20/19 07/21/19 07/22/19 23:59 23:59 23:59 Intake Total 792.00 / 992.00 1578.25 / 1578.25 157.00 / 157.00 Output Total 725 / 1150 1725 / 1725 490 / 490 Balance 67.00 / -158.00 -146.75 / -146.75 -333.00 / -333.00 General: Alert, Cooperative, No apparent distress Lungs: Clear to auscultation, Normal air movement Cardiovascular: Regular rate, Regular Rhythm Abdomen: Soft, Non Tender, Non-Distended Skin: Ulcer/ Wound - foot wrapped Microbiology Past 72 Hours 07/16/19 12:06 Blood Culture (Wb) - Left Wrist Blood Culture - Final No growth in 5 days. 07/16/19 11:30 Blood Culture (Wb) - Arm Right Blood Culture - Final No growth in 5 days. 07/20/19 14:06 Tissue - Toe Gram Stain - Final 07/20/19 14:06 Tissue - Toe Wound Culture - Preliminary No growth-Final to follow 07/20/19 13:59 Tissue - Toe Gram Stain - Final 07/20/19 13:59 Tissue - Toe Wound Culture - Preliminary No growth-Final to follow Laboratory Results 07/21/19 11:51: POC Glucose 298 H 07/21/19 13:06: Troponin I < 0.015 07/21/19 15:30: Troponin I 0.025 07/21/19 15:54: POC Glucose 375 H 07/21/19 18:56: Troponin I 0.016 07/21/19 21:01: POC Glucose 271 H 07/22/19 06:37: POC Glucose 206 H Current Medications Acetaminophen (Tylenol) 650 mg PO Q6H PRN PRN PRN Reason: Pain Score 1-3/Temp > 100.7 F Last Admin: 07/21/19 09:35 Dose: 650 mg Documented by: Apixaban (Eliquis) 2.5 mg PO BID [facility] Last Admin: 07/21/19 12:19 Dose: Not Given Documented by: Clopidogrel Bisulfate (Plavix) 75 mg PO DAILY [facility] Last Admin: 07/22/19 08:36 Dose: 75 mg Documented by: Diphenhydramine HCl (Benadryl) 50 mg PO X1 ONE Stop: 07/23/19 08:31 Enoxaparin Sodium (Lovenox) 50 mg SC Q12 [facility] Last Admin: 07/22/19 08:35 Dose: 50 mg Documented by: Glipizide (Glucotrol) 10 mg PO BID@0800,1700 [facility] Last Admin: 07/22/19 08:35 Dose: 10 mg Documented by: Glucagon () 1 mg IM .X1 PRN PRN Reason: Hypoglycemia Hydralazine HCl (Apresoline Iv) 10 mg IV Q8H PRN PRN PRN Reason: for SBP>160 Dextrose (Dextrose 10%-Water) 250 mls @ 999 mls/hr IV .Q16M PRN; Protocol PRN Reason: HYPOGLYCEMIA Sodium Chloride () 250 mls @ 15 mls/hr IV .[id number] PRN PRN Reason: Saline Flush Last Infusion: 07/22/19 09:13 Dose: Infused Documented by: Cefazolin Sodium () 1 gm in 50 mls @ 100 mls/hr IV Q8 [facility] Last Infusion: 07/22/19 05:48 Dose: Infused Documented by: Sodium Chloride () 1,000 mls @ 75 mls/hr IV .[id number] [facility] Insulin Human Lispro (Humalog Kwikpen (Bkc)) 0 unit SC ACHS [facility]; Protocol Last Admin: 07/22/19 06:39 Dose: 4 u Documented by: Metoprolol Tartrate (Lopressor (Beta Deborah)) 25 mg PO DAILY@2000 [facility] Last Admin: 07/21/19 20:26 Dose: 25 mg Documented by: Metoprolol Tartrate (Lopressor (Beta Deborah)) 50 mg PO DAILY@0800 [facility] Last Admin: 07/22/19 08:35 Dose: 50 mg Documented by: Nitroglycerin (Nitrostat) 0.4 mg SUBLINGUAL Q5M PRN PRN Reason: CARDIAC/CHEST PAIN Last Admin: 07/21/19 12:31 Dose: 0.4 mg Documented by: Pantoprazole Sodium (Protonix) 20 mg PO DAILY [facility] Last Admin: 07/22/19 08:36 Dose: 20 mg Documented by: Sodium Chloride () 10 - 40 ml IV UD PRN PRN Reason: SALINE FLUSH Last Admin: 07/22/19 09:20 Dose: 10 ml Documented by: Sodium Chloride () 10 - 40 ml IV UD PRN PRN Reason: SALINE FLUSH Timolol Maleate (Timoptic) 1 drop EACH EYE BID [facility] Last Admin: 07/22/19 08:36 Dose: 1 drop Documented by: Tramadol HCl (Ultram) 150 mg PO 0600 [facility] Last Admin: 07/22/19 05:22 Dose: 150 mg Documented by: Tramadol HCl (Ultram) 50 mg PO 1400 [facility] Last Admin: 07/21/19 15:57 Dose: 50 mg Documented by: Medical Necessity - Tobacco Use Smoking Status: Former smoker Tobacco Use: Cigarettes Route of nutrition/ use of supplements: [] Nutritional Intake: [] IV Site: [] Fierro Catheter: [] - Assessment/Plan Antibiotics: [] Assessment/Plan: [] Active and Suspected Problems 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 On cefazolin. With good source control and possible vascular intervention, may be candidate for po abx at discharge. Will follow
[2019-07-22 11:25] LABS: Bedside Glucose 295 mg/dL (70-110)
--- NOTE | 2019-07-22 12:38 | PCM.PROGNOTE ---
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 No acute events overnight. Denies further chest pain overnight. Plan for angiogram tomorrow. - Physical Exam Vitals/I&O's: Vital Signs Temp Pulse Resp BP Pulse Ox 98.0 F 72 14 142/85 H 96 07/22/19 08:33 07/22/19 08:35 07/22/19 08:33 07/22/19 08:33 07/22/19 08:33 Oxygen Flow Rate (L/min) 2 Oxygen Delivery Method Room Air Weight: 250 lb 14.177 oz Body Mass Index (BMI) 41.7 Intake and Output for Last 24 Hours 07/20/19 07/21/19 07/22/19 23:59 23:59 23:59 Intake Total 792.00 / 992.00 1578.25 / 1578.25 557.00 / 557.00 Output Total 725 / 1150 1725 / 1725 690 / 690 Balance 67.00 / -158.00 -146.75 / -146.75 -133.00 / -133.00 General: Alert, Oriented x3, Cooperative HEENT: Atraumatic, PERRLA, EOMI, Normocephalic Neck: Supple, No JVD, Negative Carotid Bruits Lungs: Clear to auscultation, Normal air movement Cardiovascular: Regular rate, Regular Rhythm, Normal S1, Normal S2, No murmurs Abdomen: Bowel Sounds Present, Soft, Non Tender, Non-Distended Extremities: No clubbing, No cyanosis, No edema, Capillary Refill Less than 3 Seconds Skin: No rashes, No breakdown Musculoskeletal: No Tenderness to Palpation of Joints or Extremities Neurological: Cranial nerves II-XII grossly intact, Neuro grossly intact Psych/Mental Status: Normal Affect, Appropriate Microbiology Past 72 Hours 07/20/19 14:06 Tissue - Toe Gram Stain - Final 07/20/19 14:06 Tissue - Toe Wound Culture - Preliminary No growth-Final to follow 07/20/19 14:06 Tissue - Toe Anaerobic Culture - Preliminary No growth in 48 hours. 07/20/19 13:59 Tissue - Toe Gram Stain - Final 07/20/19 13:59 Tissue - Toe Wound Culture - Preliminary No growth-Final to follow 07/20/19 13:59 Tissue - Toe Anaerobic Culture - Preliminary No growth in 48 hours. 07/16/19 12:06 Blood Culture (Wb) - Left Wrist Blood Culture - Final No growth in 5 days. 07/16/19 11:30 Blood Culture (Wb) - Arm Right Blood Culture - Final No growth in 5 days. Laboratory Results 07/21/19 13:06: Troponin I < 0.015 07/21/19 15:30: Troponin I 0.025 07/21/19 15:54: POC Glucose 375 H 07/21/19 18:56: Troponin I 0.016 07/21/19 21:01: POC Glucose 271 H 07/22/19 06:37: POC Glucose 206 H 07/22/19 11:11: POC Glucose 295 H Current Medications Acetaminophen (Tylenol) 650 mg PO Q6H PRN PRN PRN Reason: Pain Score 1-3/Temp > 100.7 F Last Admin: 07/21/19 09:35 Dose: 650 mg Documented by: Apixaban (Eliquis) 2.5 mg PO BID [facility] Last Admin: 07/21/19 12:19 Dose: Not Given Documented by: Clopidogrel Bisulfate (Plavix) 75 mg PO DAILY [facility] Last Admin: 07/22/19 08:36 Dose: 75 mg Documented by: Diphenhydramine HCl (Benadryl) 50 mg PO X1 ONE Stop: 07/23/19 08:31 Enoxaparin Sodium (Lovenox) 50 mg SC Q12 [facility] Last Admin: 07/22/19 08:35 Dose: 50 mg Documented by: Glipizide (Glucotrol) 10 mg PO BID@0800,1700 [facility] Last Admin: 07/22/19 08:35 Dose: 10 mg Documented by: Glucagon () 1 mg IM .X1 PRN PRN Reason: Hypoglycemia Hydralazine HCl (Apresoline Iv) 10 mg IV Q8H PRN PRN PRN Reason: for SBP>160 Dextrose (Dextrose 10%-Water) 250 mls @ 999 mls/hr IV .Q16M PRN; Protocol PRN Reason: HYPOGLYCEMIA Sodium Chloride () 250 mls @ 15 mls/hr IV .[id number] PRN PRN Reason: Saline Flush Last Infusion: 07/22/19 09:13 Dose: Infused Documented by: Cefazolin Sodium () 1 gm in 50 mls @ 100 mls/hr IV Q8 [facility] Last Infusion: 07/22/19 05:48 Dose: Infused Documented by: Sodium Chloride () 1,000 mls @ 75 mls/hr IV .[id number] [facility] Insulin Human Lispro (Humalog Kwikpen (Bkc)) 0 unit SC ACHS [facility]; Protocol Last Admin: 07/22/19 11:12 Dose: 6 u Documented by: Metoprolol Tartrate (Lopressor (Beta Deborah)) 25 mg PO DAILY@2000 [facility] Last Admin: 07/21/19 20:26 Dose: 25 mg Documented by: Metoprolol Tartrate (Lopressor (Beta Deborah)) 50 mg PO DAILY@0800 [facility] Last Admin: 07/22/19 08:35 Dose: 50 mg Documented by: Nitroglycerin (Nitrostat) 0.4 mg SUBLINGUAL Q5M PRN PRN Reason: CARDIAC/CHEST PAIN Last Admin: 07/21/19 12:31 Dose: 0.4 mg Documented by: Pantoprazole Sodium (Protonix) 20 mg PO DAILY [facility] Last Admin: 07/22/19 08:36 Dose: 20 mg Documented by: Sodium Chloride () 10 - 40 ml IV UD PRN PRN Reason: SALINE FLUSH Last Admin: 07/22/19 09:20 Dose: 10 ml Documented by: Sodium Chloride () 10 - 40 ml IV UD PRN PRN Reason: SALINE FLUSH Timolol Maleate (Timoptic) 1 drop EACH EYE BID [facility] Last Admin: 07/22/19 08:36 Dose: 1 drop Documented by: Tramadol HCl (Ultram) 150 mg PO 0600 [facility] Last Admin: 07/22/19 05:22 Dose: 150 mg Documented by: Tramadol HCl (Ultram) 50 mg PO 1400 [facility] Last Admin: 07/21/19 15:57 Dose: 50 mg Documented by: Medical Necessity - Tobacco Use Smoking Status: Former smoker Tobacco Use: Cigarettes Assessment/Plan All Active Problems 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 Parker. Continue IV cefazolin. Wound culture growing MSSA. Tissue pathology pending. Blood cultures showing no growth. ID following. 2. Chest pain-history of CAD status post stents x6-cardiology consulted. Echocardiogram 07/21/2019 demonstrated EF 65%, stage II diastolic dysfunction, mild mitral valve insufficiency. Continue aspirin, Plavix, Nitropaste. Plan for cath in a.m. 3. Atrial flutter, history of atrial fibrillation-continue Lovenox, plan to resume Eliquis following further cardiology evaluation. Continue metoprolol. 4. Peripheral vascular disease -left lower extremity peripheral angiogram initially planned for 07/23/[address] Menard however patient will undergo cardiac catheterization tomorrow and angiogram will be performed at a later date. Ankle brachial index completed which revealed a left and right moderately severe atrial occlusive disease. 5. Stage III chronic kidney disease-stable, trend BMP. 6. History of PE-on Eliquis, held secondary to prior planned lower extremity angiogram. 7. Type 2 diabetes mellitus-continue glipizide. Accu-Cheks ACHS with SSI. 8. Hypertension-stable, continue Lasix, metoprolol regimen. 9. Hyperlipidemia-lipid panel pending. Not on statin. 10. GERD- continue PPI. DVT prophylaxis- Lovenox This patient was seen by EULA Woodward under the supervision of Dr. Grove.
[2019-07-22] MEDS: traMADol 50 MG Tablet PO (13:21)
--- NOTE | 2019-07-22 14:52 | PCM.PN.ORT ---
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 Patient denies pain in his left foot. Patient denies acute overnight events. Patient states that the pain in his chest has been relieved. Patient denies any other acute complaints at this time. No new events reported overnight by nursing staff. Currently, patient denies fever, chills, nausea, vomiting, shortness of breath, chest pain. Patient denies left foot pain. Objective: Lower extremity physical exam: Dressing is clean, dry, intact to left lower extremity with no evidence of strikethrough Dressing was removed at this time Vascular: Nonpalpable dorsalis pedis and posterior tibial pulse left lower extremity. Capillary fill time is delayed to all digits. Temperature gradient is within normal limits. Positive nonpitting edema noted of the left foot encompassing the dorsal and plantar aspects. Neurological: Gross and protective sensation absent to the left lower extremity Dermatological: Surgical site is well coapted to the left foot with sutures intact. Of the surgical site, there is no fluctuance, no crepitus, no malodor, no drainage, no purulence. No evidence of sanguinous drainage through surgical site. There is no erythema noted. There are no signs of dehiscence noted. Surgical site is healing well. No other ulcerations noted of the left foot. Musculoskeletal: Deferred at this time - Physical Exam Vitals/I&O's: Vital Signs Temp Pulse Resp BP Pulse Ox 98.0 F 72 14 142/85 H 96 07/22/19 08:33 07/22/19 08:35 07/22/19 08:33 07/22/19 08:33 07/22/19 08:33 Oxygen Flow Rate (L/min) 2 Oxygen Delivery Method Room Air Weight: 113.8 kg Body Mass Index (BMI) 41.7 Intake and Output for Last 24 Hours 07/20/19 07/21/19 07/22/19 23:59 23:59 23:59 Intake Total 792.00 / 992.00 1578.25 / 1578.25 930.75 / 930.75 Output Total 725 / 1150 1725 / 1725 690 / 690 Balance 67.00 / -158.00 -146.75 / -146.75 240.75 / 240.75 General: Alert, Oriented x3, Cooperative, No apparent distress HEENT: Atraumatic Oral: Moist Mucosa Neck: Supple, No JVD Lungs: Clear to auscultation, Normal air movement Abdomen: Bowel Sounds Present, Soft, Non Tender, Non-Distended, Obese Extremities: No Calf Tenderness, Diminished Peripheral Pulses Musculoskeletal: No Tenderness to Palpation of Joints or Extremities Psych/Mental Status: Alert and oriented to time, place, person, mood and affect Microbiology Past 72 Hours 07/20/19 14:06 Tissue - Toe Gram Stain - Final 07/20/19 14:06 Tissue - Toe Wound Culture - Preliminary No growth-Final to follow 07/20/19 14:06 Tissue - Toe Anaerobic Culture - Preliminary No growth in 48 hours. 07/20/19 13:59 Tissue - Toe Gram Stain - Final 07/20/19 13:59 Tissue - Toe Wound Culture - Preliminary No growth-Final to follow 07/20/19 13:59 Tissue - Toe Anaerobic Culture - Preliminary No growth in 48 hours. 07/16/19 12:06 Blood Culture (Wb) - Left Wrist Blood Culture - Final No growth in 5 days. 07/16/19 11:30 Blood Culture (Wb) - Arm Right Blood Culture - Final No growth in 5 days. Laboratory Results 07/21/19 15:30: Troponin I 0.025 07/21/19 15:54: POC Glucose 375 H 07/21/19 18:56: Troponin I 0.016 07/21/19 21:01: POC Glucose 271 H 07/22/19 06:37: POC Glucose 206 H 07/22/19 11:11: POC Glucose 295 H Current Medications Acetaminophen (Tylenol) 650 mg PO Q6H PRN PRN PRN Reason: Pain Score 1-3/Temp > 100.7 F Last Admin: 07/21/19 09:35 Dose: 650 mg Documented by: Apixaban (Eliquis) 2.5 mg PO BID [facility] Last Admin: 07/21/19 12:19 Dose: Not Given Documented by: Clopidogrel Bisulfate (Plavix) 75 mg PO DAILY [facility] Last Admin: 07/22/19 08:36 Dose: 75 mg Documented by: Diphenhydramine HCl (Benadryl) 50 mg PO X1 ONE Stop: 07/23/19 08:31 Enoxaparin Sodium (Lovenox) 50 mg SC Q12 [facility] Last Admin: 07/22/19 08:35 Dose: 50 mg Documented by: Glipizide (Glucotrol) 10 mg PO BID@0800,1700 [facility] Last Admin: 07/22/19 08:35 Dose: 10 mg Documented by: Glucagon () 1 mg IM .X1 PRN PRN Reason: Hypoglycemia Hydralazine HCl (Apresoline Iv) 10 mg IV Q8H PRN PRN PRN Reason: for SBP>160 Dextrose (Dextrose 10%-Water) 250 mls @ 999 mls/hr IV .Q16M PRN; Protocol PRN Reason: HYPOGLYCEMIA Sodium Chloride () 250 mls @ 15 mls/hr IV .[id number] PRN PRN Reason: Saline Flush Last Infusion: 07/22/19 09:13 Dose: Infused Documented by: Cefazolin Sodium () 1 gm in 50 mls @ 100 mls/hr IV Q8 [facility] Last Infusion: 07/22/19 13:48 Dose: Infused Documented by: Sodium Chloride () 1,000 mls @ 75 mls/hr IV .[id number] [facility] Insulin Human Lispro (Humalog Kwikpen (Bkc)) 0 unit SC ACHS [facility]; Protocol Last Admin: 07/22/19 11:12 Dose: 6 u Documented by: Metoprolol Tartrate (Lopressor (Beta Deborah)) 25 mg PO DAILY@2000 [facility] Last Admin: 07/21/19 20:26 Dose: 25 mg Documented by: Metoprolol Tartrate (Lopressor (Beta Deborah)) 50 mg PO DAILY@0800 [facility] Last Admin: 07/22/19 08:35 Dose: 50 mg Documented by: Nitroglycerin (Nitrostat) 0.4 mg SUBLINGUAL Q5M PRN PRN Reason: CARDIAC/CHEST PAIN Last Admin: 07/21/19 12:31 Dose: 0.4 mg Documented by: Pantoprazole Sodium (Protonix) 20 mg PO DAILY [facility] Last Admin: 07/22/19 08:36 Dose: 20 mg Documented by: Sodium Chloride () 10 - 40 ml IV UD PRN PRN Reason: SALINE FLUSH Last Admin: 07/22/19 09:20 Dose: 10 ml Documented by: Sodium Chloride () 10 - 40 ml IV UD PRN PRN Reason: SALINE FLUSH Timolol Maleate (Timoptic) 1 drop EACH EYE BID [facility] Last Admin: 07/22/19 08:36 Dose: 1 drop Documented by: Tramadol HCl (Ultram) 150 mg PO 0600 [facility] Last Admin: 07/22/19 05:22 Dose: 150 mg Documented by: Tramadol HCl (Ultram) 50 mg PO 1400 [facility] Last Admin: 07/22/19 13:21 Dose: 50 mg Documented by: Medical Necessity - Tobacco Use Smoking Status: Former smoker Tobacco Use: Cigarettes Assessment/Plan All Active Problems 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 Surgery was performed on July 20, 2019 At this time, the surgical site was dressed with Betadine soaked gauze, and a dry sterile dressing using a 4 x 4 gauze wrapped with Kerlix. The left foot and ankle were then wrapped in Grady bandage. Patient to continue nonweightbearing to left lower extremity. Patient is to keep the dressing clean, dry, intact. Please reinforce dressing as needed. Continue IV antibiotics per infectious disease Patient is going for cardiac catheterization tomorrow, July 23. Vascular intervention will likely be performed as an outpatient. Please reinforce dressing PRN Radiological findings of the third digit of the left foot are likely due to gout. There are no ulcerations in the remaining left foot. Radiographic findings are not correlated with the presence of osteomyelitis. At this time, we will not perform any other dressing changes while in house. We will continue to follow patient closely and update accordingly. Thank you for allowing me to take part in the care of your patient.
--- NOTE | 2019-07-22 15:03 | CASEMGMT ---
PITER spoke with patient and his and they would like patient to go to [facility]. PITER told them his [facility] benefits and they were pleased. PITER told them SW will make the referral. PITER called [facility] with referral and also faxed over information. Await response. Chelsie MANCILLA MSW
[2019-07-22 16:30] LABS: Bedside Glucose 237 mg/dL (70-110)
--- NOTE | 2019-07-22 16:39 | CASEMGMT ---
SEVERIANO CM Note: Insurance review for [facility] facilities if transfer is recommended. Per [facility] website: [facility], [facility], [facility], [facility], [facility]
--- NOTE | 2019-07-22 17:12 | CASEMGMT ---
SW received a voice mail from [facility]. They would likely be able to accept patient, but they did have questions about patient's antibiotics. They were leaving for the day. SW will call in the am to answer their questions. Chelsie MANCILLA MSW
[2019-07-22] MEDS: Metoprolol Tartrate 25 MG Tablet PO (19:55)
[2019-07-22 22:00] LABS: Bedside Glucose 223 mg/dL (70-110)
[2019-07-23] VITALS (15 sets, daily range): BP systolic 124–161; BP diastolic 67–87; PULSE 69–92; RESP 16–20; TEMP 36.4–37; O2SAT 95–98
[2019-07-23] MEDS: Cefazolin 1 GM/50 ML BAG IV (04:57)
[2019-07-23] MEDS: 0.9% Normal Saline 1,000 ML 75 ML IV (04:57)
--- NOTE | 2019-07-23 05:55 | EKG12_ITS ---
Test Reason : AM EKG Blood Pressure : / mmHG Vent. Rate : 082 BPM Atrial Rate : 277 BPM P-R Int : 000 ms QRS Dur : 096 ms QT Int : 372 ms P-R-T Axes : 255 009 098 degrees QTc Int : 434 ms Atrial flutter with variable A-V block Abnormal ECG Abnormal ECG Confirmed by LEAH BERRY, EVIN ([id number]), news copy editor JESUS MACK ([id number]) on 07/28/2019 10:17:44 AM Referred By: [employer] Confirmed By:EVIN LYNN MD
[2019-07-23] MEDS: Metoprolol Tartrate 50 MG Tablet PO (06:14)
[2019-07-23] MEDS: Clopidogrel Bisulfate 75 MG Tablet PO (06:14)
[2019-07-23] MEDS: traMADol 50 MG Tablet 150 MG PO (06:14)
[2019-07-23] MEDS: Pantoprazole Sodium 20 MG Tablet PO (06:14)
[2019-07-23 06:30] LABS: Bedside Glucose 204 mg/dL (70-110)
[2019-07-23 06:46] LABS: Anion Gap 5 (5-15); BUN 15 mg/dL (7-18); BUN/Creat Ratio 10.7 RATIO (10-20); Calcium,Total 8.3 mg/dL (8.5-10.1); Chloride 111 mmol/L (98-107); Cholesterol 97 mg/dL (200); EST Glomerular Filtration Rate 52 mL/min (>60); Est Glom Filt Rate - Afr Amer 63 mL/min (>60); Estimated Creatinine Clearance 36.61 ml/min; Glucose 213 mg/dL (74-106); High Density Lipoprotein 43 mg/dL; Potassium 4.4 mmol/L (3.5-5.1); Sodium Level 139 mmol/L (136-145); Triglycerides 136 mg/dL; Very Low Density Lipoprotein 27 mg/dL (5-40)
[2019-07-23] MEDS: DiphenhydrAMINE 25 MG Capsule 50 MG PO (07:00)
--- NOTE | 2019-07-23 08:22 | CL.D_ITS ---
Patient Name: JANET BERNARD Study Date: 07/23/2019 Performing: Wade Garza MD Ht: 64.96 inches 165 cm : 1940 Wt: 251.33 lbs 114 kg Age: 79 Gender: male BSA: 2.18 PROCEDURE(S) PERFORMED GB13-SCD/COR/LV/CABG CLINICAL PROFILE AND INDICATIONS Patient presents with NSTEMI for urgent cardiac cath Indications: ACS > 24 hrs, New Onset Angina <= 2 months, Stable Known CAD, LV Dysfunction Heart Failure: NYHA Class: 1, Newly Diagnosed: No, Heart Failure Type: Systolic Stress/Imaging Stress/Image Study Performed: No Angina Classification Anginal Classification w/in 2 Weeks: CCS IV CAD Presentations: Unstable angina. Non-STEMI. Symptom onset Date/Time: 07/21/2019 Time Not Availa ble Comorbidities/Risk Factors: Hypertension Dyslipidemia Diabetes Mellitus: Diabetes Therapy: Oral Prior PCI Prior CABG CONCLUSIONS Segmented LV systolic dysfunction- Moderate LVEF: by LV gram 50 % Depressed Left Ventricular systolic function - Mild Triple vessel CAD of the LM, LAD, LCX, RCA Widely patent FULLER To LAD Widely patent SVG to OM Occluded SVG to RCA (old) Widely patent stents x 3 to proximal, mid and distal RCA. RECOMMENDATIONS Management as per referring Dental Lab Technician Start amiodarone 200mg daily and DCCV in 3-4 weeks after LE angiogram has been completed. F/u with Dr Garza D/w Dr Grove. DESCRIPTION OF PROCEDURE The patient arrived to the procedure lab. The risks and benefits of the procedure as well as a full d escription of our services here and current unavailability of surgical backup were fully explained to the patient and/or their significant other prior to the catheterization. The Timeout was completed, verifying the correct patient and procedure. The patient's procedural site was prepped and draped in the usual fashion. Local anesthetic was given subcutaneously to right groin region with Lidocaine 2%. Using a modified Seldinger technique, arterial access was obtained via the right femoral artery, a 4 Fr sheath was inserted Left Coronary Artery selective angiography was performed in multiple views us ing a 4 Fr. JL5 catheter. Right Coronary Artery selective angiography was then performed in multiple views using a 4 Fr. 3DRC catheter. Left internal mammary artery graft to the LAD selective angiograph y was performed in multiple views using a 4 Fr. IM catheter. Saphenous Vein graft to the OM 1 selective angiography was performed in multiple views using a 4 Fr. AR MOD 2 catheter. Left Vent riculography was performed in HDEZ projection using a 4 Fr. Pigtail catheter. LV to AO pullback pressu res were then recorded.The arterial sheath was pulled and manual compression applied until hemostasis is achieved. CORONARY ANGIOGRAPHY DOMINANCE: Right Dominant LEFT HEART ASSESSMENT Left Ventricular Ejection Fraction: by LV Gram 50 % Inferior Basal Hypokinesis - Moderate Depressed Left Ventricular systolic function LVEDP: 12 mmHg Normal Left Ventricular End Diastolic Pressure LEFT MAIN: 50 % Stenosis LEFT ANTERIOR DESCENDING ARTERY: PROX LAD: 85 % Stenosis CIRCUMFLEX ARTERY: MID CIRC: 85 % Stenosis RIGHT CORONARY ARTERY: Previously placed stent is patent RT PDA: Proximal - Mild luminal irregularities less than 30% GRAFTS: FULLER graft to the LAD is patent Saphenous Vein graft to the 1st OM is patent Saphenous Vein graft to the RCA is totally occluded COMPLICATIONS No Complications PROCEDURE MEDICATIONS Oxygen: 2 L/min via nasal cannula Baby Aspirin (81mg) 1 Tabs PO @ 07/23/2019 07:30:23 Nitro Tab 0.4 mg PO 07/23/2019 08:07:32 SUMMARY OF HEMODYNAMIC DATA Time AIR REST ECG 07:38:21 AO 163/77 (110) SA 07:49:15 LV 160/-12, 11 08:02:31 LV 165/-11, 17 08:02:39 LVp 159/-7, 17 08:03:18 AOp 167/61 (101) 08:03:23 Signed By Wade Garza MD On 07/23/2019 08:21:43 Wade Garza MD
[2019-07-23] MEDS: 0.9% Saline Lock 10 ML Syringe IV (09:09)
[2019-07-23] MEDS: glipiZIDE 10 MG Tablet PO ×2 (10:25→16:17)
[2019-07-23] MEDS: Losartan Potassium 25 MG Tablet PO (10:26)
[2019-07-23] MEDS: Amiodarone 200 MG Tablet PO (10:26)
[2019-07-23] MEDS: Timolol 0.5% 5ML OPTH.BTL 1 DRP EACH EYE (10:26)
[2019-07-23] MEDS: Insulin Lispro 100 UNIT/ML INSULN.PEN SC ×2 (11:28→16:16)
--- NOTE | 2019-07-23 11:45 | PN.ORTHO_ITS ---
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 Patient states that he had his cardiac catheterization this morning. Patient denies acute overnight events. Patient denies any pain to his left foot or chest. Patient denies fever, chills, nausea, vomiting, shortness of breath, chest pain. Patient denies left calf pain. is present at bedside during entire visit. Objective: Left lower extremity exam: Dressing is clean, dry, intact the left lower extremity. No evidence of strikethrough noted. No other ulcers noted of left foot and ankle. Patient able to move all digits of left foot. Capillary fill time is delayed to all digits of the left foot. Gross and protective sensation is absent to the left foot. Left ankle joint range of motion is intact. - Physical Exam Vitals/I&O's: Vital Signs Temp Pulse Resp BP Pulse Ox 97.9 F 74 16 147/72 H 98 07/23/19 08:35 07/23/19 11:20 07/23/19 11:20 07/23/19 11:20 07/23/19 11:20 Oxygen Flow Rate (L/min) 2 Oxygen Delivery Method Room Air Weight: 113.8 kg Body Mass Index (BMI) 41.7 Intake and Output for Last 24 Hours 07/21/19 07/22/19 07/23/19 23:59 23:59 23:59 Intake Total 1578.25 / 1578.25 1720.75 / 1720.75 461.25 / 461.25 Output Total 1725 / 1725 915 / 915 450 / 450 Balance -146.75 / -146.75 805.75 / 805.75 11.25 / 11.25 General: Alert, Oriented x3, Cooperative HEENT: Atraumatic, PERRLA Oral: Moist Mucosa Neck: Supple, No JVD Lungs: Clear to auscultation, Normal air movement Abdomen: Bowel Sounds Present, Soft, Non Tender, Non-Distended Extremities: Diminished Peripheral Pulses Skin: Ulcer/ Wound - Rubbed above. No other ulcers noted of the left foot. Musculoskeletal: No Tenderness to Palpation of Joints or Extremities Psych/Mental Status: Alert and oriented to time, place, person, mood and affect Microbiology Past 72 Hours 07/20/19 13:59 Tissue - Toe Gram Stain - Final 07/20/19 13:59 Tissue - Toe Wound Culture - Preliminary No growth-Final to follow 07/20/19 13:59 Tissue - Toe Anaerobic Culture - Preliminary No growth in 48 hours. 07/20/19 14:06 Tissue - Toe Gram Stain - Final 07/20/19 14:06 Tissue - Toe Wound Culture - Preliminary No growth aerobically. 07/20/19 14:06 Tissue - Toe Anaerobic Culture - Preliminary No growth in 48 hours. 07/16/19 12:06 Blood Culture (Wb) - Left Wrist Blood Culture - Final No growth in 5 days. 07/16/19 11:30 Blood Culture (Wb) - Arm Right Blood Culture - Final No growth in 5 days. Laboratory Results 07/22/19 16:22: POC Glucose 237 H 07/22/19 21:52: POC Glucose 223 H 07/23/19 06:16: Sodium 139, Potassium 4.4, Chloride 111 H, Carbon Dioxide 23.0, Anion Gap 5, BUN 15, Creatinine 1.40 H, Estim Creat Clear Calc 36.61, Est GFR (MDRD) Af Amer 63, Est GFR (MDRD) Non-Af 52 L, BUN/Creatinine Ratio 10.7, Glucose 213 H, Calcium 8.3 L, Triglycerides 136, Cholesterol 97, LDL Cholesterol 27, VLDL Cholesterol 27, HDL Cholesterol 43 07/23/19 06:24: POC Glucose 204 H Current Medications Acetaminophen (Tylenol) 650 mg PO Q6H PRN PRN PRN Reason: Pain Score 1-3/Temp > 100.7 F Last Admin: 07/21/19 09:35 Dose: 650 mg Documented by: Amiodarone HCl (Cordarone) 200 mg PO DAILY [facility] Last Admin: 07/23/19 10:26 Dose: 200 mg Documented by: Apixaban (Eliquis) 2.5 mg PO BID [facility] Last Admin: 07/21/19 12:19 Dose: Not Given Documented by: Clopidogrel Bisulfate (Plavix) 75 mg PO DAILY [facility] Last Admin: 07/23/19 06:14 Dose: 75 mg Documented by: Glipizide (Glucotrol) 10 mg PO BID@0800,1700 [facility] Last Admin: 07/23/19 10:25 Dose: 10 mg Documented by: Glucagon () 1 mg IM .X1 PRN PRN Reason: Hypoglycemia Heparin Sodium (Beef Lung) (Heparin 500 Unit/5 Ml (100/Ml)) 500 unit IV UD PRN PRN Reason: HEPARIN FLUSH Hydralazine HCl (Apresoline Iv) 10 mg IV Q8H PRN PRN PRN Reason: for SBP>160 Dextrose (Dextrose 10%-Water) 250 mls @ 999 mls/hr IV .Q16M PRN; Protocol PRN Reason: HYPOGLYCEMIA Sodium Chloride () 250 mls @ 15 mls/hr IV .[id number] PRN PRN Reason: Saline Flush Last Infusion: 07/22/19 09:13 Dose: Infused Documented by: Cefazolin Sodium () 1 gm in 50 mls @ 100 mls/hr IV Q8 [facility] Last Infusion: 07/23/19 05:27 Dose: Infused Documented by: Sodium Chloride () 1,000 mls @ 75 mls/hr IV .[id number] [facility] Last Infusion: 07/23/19 11:21 Dose: 75 mls/hr Documented by: Insulin Human Lispro (Humalog Kwikpen (Bkc)) 0 unit SC ACHS [facility]; Protocol Last Admin: 07/23/19 11:28 Dose: 4 u Documented by: Labetalol HCl (Trandate) 5 mg IV X1 PRN PRN Reason: SBP > 160 prior to sheath pull Stop: 07/25/19 08:06 Losartan Potassium (Cozaar) 25 mg PO DAILY [facility] Last Admin: 07/23/19 10:26 Dose: 25 mg Documented by: Metoprolol Tartrate (Lopressor (Beta Deborah)) 25 mg PO DAILY@2000 [facility] Last Admin: 07/22/19 19:55 Dose: 25 mg Documented by: Metoprolol Tartrate (Lopressor (Beta Deborah)) 50 mg PO DAILY@0800 [facility] Last Admin: 07/23/19 06:14 Dose: 50 mg Documented by: Nitroglycerin (Nitrostat) 0.4 mg SUBLINGUAL Q5M PRN PRN Reason: CARDIAC/CHEST PAIN Last Admin: 07/21/19 12:31 Dose: 0.4 mg Documented by: Pantoprazole Sodium (Protonix) 20 mg PO DAILY [facility] Last Admin: 07/23/19 06:14 Dose: 20 mg Documented by: Sodium Chloride () 10 - 40 ml IV UD PRN PRN Reason: SALINE FLUSH Last Admin: 07/23/19 09:09 Dose: 10 ml Documented by: Sodium Chloride () 10 - 40 ml IV UD PRN PRN Reason: SALINE FLUSH Timolol Maleate (Timoptic) 1 drop EACH EYE BID [facility] Last Admin: 07/23/19 10:26 Dose: 1 drop Documented by: Tramadol HCl (Ultram) 150 mg PO 0600 [facility] Last Admin: 07/23/19 06:14 Dose: 150 mg Documented by: Tramadol HCl (Ultram) 50 mg PO 1400 [facility] Last Admin: 07/22/19 13:21 Dose: 50 mg Documented by: Medical Necessity - Tobacco Use Smoking Status: Former smoker Tobacco Use: Cigarettes Assessment/Plan All Active Problems 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 Surgery was performed on July 20, 2019 At this time, the dressing was left clean, dry and intact. If patient is still in-house in the afternoon on July 26, I will change the dressing again. If patient is leaving in the morning, dressing to be left clean, dry and intact. Patient will see me in the office on Saturday, July 27, 2019. Patient to continue nonweightbearing to left lower extremity. Patient is to keep the dressing clean, dry, intact. Please reinforce dressing as needed. Continue IV antibiotics per infectious disease Vascular intervention will likely be performed as an outpatient. Radiological findings of the third digit of the left foot are likely due to gout. There are no ulcerations in the remaining left foot. Radiographic findings are not correlated with the presence of osteomyelitis. We will continue to follow patient and update accordingly. Will next see the patient on 07/26/2019 if still in house in the afternoon. Thank you for allowing me to take part in the care of your patient. Code Visit Inpatient E&M: 64398 Subs Hosp L2
[2019-07-23 11:50] LABS: Bedside Glucose 231 mg/dL (70-110)
--- NOTE | 2019-07-23 12:19 | CASEMGMT ---
Hospital exemption completed in the [facility] system. JASON Sellers
--- NOTE | 2019-07-23 13:37 | PCM.PN.ID ---
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 - Physical Exam Vitals/I&O's: Vital Signs Temp Pulse Resp BP Pulse Ox 97.8 F 78 16 157/81 H 98 07/23/19 12:11 07/23/19 12:11 07/23/19 12:11 07/23/19 12:11 07/23/19 12:11 Oxygen Flow Rate (L/min) 2 Oxygen Delivery Method Room Air Weight: 113.8 kg Body Mass Index (BMI) 41.7 Intake and Output for Last 24 Hours 07/21/19 07/22/19 07/23/19 23:59 23:59 23:59 Intake Total 1578.25 / 1578.25 1720.75 / 1720.75 681.25 / 681.25 Output Total 1725 / 1725 915 / 915 825 / 825 Balance -146.75 / -146.75 805.75 / 805.75 -143.75 / -143.75 General: Alert, Cooperative, No apparent distress Lungs: Clear to auscultation, Normal air movement Cardiovascular: Regular rate, Regular Rhythm Abdomen: Soft, Non Tender, Non-Distended Skin: Ulcer/ Wound - foot wrapped Microbiology Past 72 Hours 07/20/19 14:06 Tissue - Toe Gram Stain - Final 07/20/19 14:06 Tissue - Toe Wound Culture - Final No growth aerobically. 07/20/19 14:06 Tissue - Toe Anaerobic Culture - Preliminary No growth in 48 hours. 07/20/19 13:59 Tissue - Toe Gram Stain - Final 07/20/19 13:59 Tissue - Toe Wound Culture - Preliminary No growth-Final to follow 07/20/19 13:59 Tissue - Toe Anaerobic Culture - Preliminary No growth in 48 hours. 07/16/19 12:06 Blood Culture (Wb) - Left Wrist Blood Culture - Final No growth in 5 days. 07/16/19 11:30 Blood Culture (Wb) - Arm Right Blood Culture - Final No growth in 5 days. Laboratory Results 07/22/19 16:22: POC Glucose 237 H 07/22/19 21:52: POC Glucose 223 H 07/23/19 06:16: Sodium 139, Potassium 4.4, Chloride 111 H, Carbon Dioxide 23.0, Anion Gap 5, BUN 15, Creatinine 1.40 H, Estim Creat Clear Calc 36.61, Est GFR (MDRD) Af Amer 63, Est GFR (MDRD) Non-Af 52 L, BUN/Creatinine Ratio 10.7, Glucose 213 H, Calcium 8.3 L, Triglycerides 136, Cholesterol 97, LDL Cholesterol 27, VLDL Cholesterol 27, HDL Cholesterol 43 07/23/19 06:24: POC Glucose 204 H 07/23/19 11:28: POC Glucose 231 H Current Medications Acetaminophen (Tylenol) 650 mg PO Q6H PRN PRN PRN Reason: Pain Score 1-3/Temp > 100.7 F Last Admin: 07/21/19 09:35 Dose: 650 mg Documented by: Amiodarone HCl (Cordarone) 200 mg PO DAILY [facility] Last Admin: 07/23/19 10:26 Dose: 200 mg Documented by: Apixaban (Eliquis) 2.5 mg PO BID [facility] Last Admin: 07/21/19 12:19 Dose: Not Given Documented by: Clopidogrel Bisulfate (Plavix) 75 mg PO DAILY [facility] Last Admin: 07/23/19 06:14 Dose: 75 mg Documented by: Doxycycline Monohydrate (Doxycycline) 100 mg PO BID [facility] Glipizide (Glucotrol) 10 mg PO BID@0800,1700 [facility] Last Admin: 07/23/19 10:25 Dose: 10 mg Documented by: Glucagon () 1 mg IM .X1 PRN PRN Reason: Hypoglycemia Heparin Sodium (Beef Lung) (Heparin 500 Unit/5 Ml (100/Ml)) 500 unit IV UD PRN PRN Reason: HEPARIN FLUSH Hydralazine HCl (Apresoline Iv) 10 mg IV Q8H PRN PRN PRN Reason: for SBP>160 Dextrose (Dextrose 10%-Water) 250 mls @ 999 mls/hr IV .Q16M PRN; Protocol PRN Reason: HYPOGLYCEMIA Sodium Chloride () 250 mls @ 15 mls/hr IV .[id number] PRN PRN Reason: Saline Flush Last Infusion: 07/22/19 09:13 Dose: Infused Documented by: Sodium Chloride () 1,000 mls @ 75 mls/hr IV .[id number] [facility] Last Infusion: 01/17/20 11:21 Dose: 75 mls/hr Documented by: Insulin Human Lispro (Humalog Kwikpen (Bkc)) 0 unit SC ACHS [facility]; Protocol Last Admin: 07/23/19 11:28 Dose: 4 u Documented by: Labetalol HCl (Trandate) 5 mg IV X1 PRN PRN Reason: SBP > 160 prior to sheath pull Stop: 07/25/19 08:06 Losartan Potassium (Cozaar) 25 mg PO DAILY [facility] Last Admin: 07/23/19 10:26 Dose: 25 mg Documented by: Metoprolol Tartrate (Lopressor (Beta Deborah)) 25 mg PO DAILY@2000 [facility] Last Admin: 07/22/19 19:55 Dose: 25 mg Documented by: Metoprolol Tartrate (Lopressor (Beta Deborah)) 50 mg PO DAILY@0800 [facility] Last Admin: 07/23/19 06:14 Dose: 50 mg Documented by: Nitroglycerin (Nitrostat) 0.4 mg SUBLINGUAL Q5M PRN PRN Reason: CARDIAC/CHEST PAIN Last Admin: 07/21/19 12:31 Dose: 0.4 mg Documented by: Pantoprazole Sodium (Protonix) 20 mg PO DAILY [facility] Last Admin: 07/23/19 06:14 Dose: 20 mg Documented by: Sodium Chloride () 10 - 40 ml IV UD PRN PRN Reason: SALINE FLUSH Last Admin: 07/23/19 09:09 Dose: 10 ml Documented by: Sodium Chloride () 10 - 40 ml IV UD PRN PRN Reason: SALINE FLUSH Timolol Maleate (Timoptic) 1 drop EACH EYE BID [facility] Last Admin: 07/23/19 10:26 Dose: 1 drop Documented by: Tramadol HCl (Ultram) 150 mg PO 0600 [facility] Last Admin: 07/23/19 06:14 Dose: 150 mg Documented by: Tramadol HCl (Ultram) 50 mg PO 1400 [facility] Last Admin: 07/22/19 13:21 Dose: 50 mg Documented by: Medical Necessity - Tobacco Use Smoking Status: Former smoker Tobacco Use: Cigarettes Route of nutrition/ use of supplements: [] Nutritional Intake: [] IV Site: [] Fierro Catheter: [] - Assessment/Plan Antibiotics: [] Assessment/Plan: [] Active and Suspected Problems 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 On cefazolin. With good source control, plan is for 2-4 weeks of po abx at discharge. Will change to po doxy. Will follow
[2019-07-23] MEDS: traMADol 50 MG Tablet PO (14:22)
[2019-07-23] MEDS: Doxycycline 100 MG CAPSULE PO (14:32)
--- NOTE | 2019-07-23 15:46 | CASEMGMT ---
Social Work Phone call earlier in the day to [facility] [place] and needed information provided. Precert started at that time. Return call from [facility] [place] and precert has been obtained and they can accept pt today. Physician notified and pt ready for d/c pt today. SW met with pt and he is understanding and agreeable to d/c today to [facility] [place]. Pt stating he thinks his will transport him. With pt permission, phone call to and she will be in to transport pt to SNF. Orders faxed and nursing made aware. DANYEL Lewis
--- NOTE | 2019-07-23 15:56 | PCM.EXTCARCO ---
- Diet 07/23/19 09:03 ADA [Diet: Cardiac: Calorie-Controlled] Is pt able to select menu?: Yes Diet Comments: no concentrated sweets/ no pop How many daily calories?: 1800 calorie - Routine Orders/Code Status Enema Type: Fleetz Enema Frequency: Daily PRN Suppository Type: Dulcolax 10mg Suppository Frequency: Daily PRN O2 Liters per Minute: 2 O2 Frequency: PRN Keep PO Greater than or Equal to (%): 90 Routine Lab Work: CBC, BMP, - - Q Week Code Status: Full Code - Wound(s) l great toe Wound Type: Surgical Incision Dressing Change: betadine gauze - Suggestions for Active Care Change Position every (hours): 2 Times a day to sit in chair: 3 - Therapies Weight Bearing: Non weight bearing Physical Therapy: Eval and Treat Occupational Therapy: Eval and Treat - Problem/Diagnosis (1) 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 Status: Acute Current Visit: Yes (2) Peripheral vascular disease Status: Chronic Current Visit: No (3) Peripheral neuropathy Status: Chronic Current Visit: No (4) Obesity Status: Chronic Current Visit: No (5) Hypertension Status: Chronic Current Visit: No (6) Hyperlipidemia Status: Chronic Current Visit: No (7) CKD (chronic kidney disease) stage 3, GFR 30-59 ml/min Status: Chronic Current Visit: No (8) GERD (gastroesophageal reflux disease) Status: Chronic Current Visit: No (9) Coronary artery disease involving [place] coronary artery of [place] heart Status: Chronic Current Visit: No (10) Diabetes mellitus type II, controlled Status: Chronic Current Visit: No - Allergies/Procedures Done in Hospital Allergies/Adverse Reactions: Allergies allopurinol Adverse Reaction (Verified 07/16/19 11:02) Other exenatide [From Byetta] Adverse Reaction (Verified 07/16/19 11:02) Other insulin aspart [From Novolog] Adverse Reaction (Verified 07/16/19 11:02) Other insulin glargine, human recombin. a [From Lantus] Adverse Reaction (Verified 07/16/19 11:02) Other morphine Adverse Reaction (Verified 07/16/19 11:02) Other DOES NOT HELP PAIN, MAKES ME FEEL OUT OF IT [id number]-Pke-Bnx Reductase Inhibitor Adverse Reaction (Verified 07/16/19 11:02) Other Procedures: Cardiac catheterization, - - Left foot partial first ray amputation 07/20/2019 - Type of Care/Length of Stay Estimated LOS: Convalescent Care Less Than 30 days Type of Care Needed: Skilled Rehab Potential: Fair Prognosis: Fair - Additional Orders/Day of Discharge Additional Orders: Patient to continue nonweightbearing to left lower extremity. Patient is to keep the dressing clean, dry, intact. Please reinforce dressing as needed. H&P will serve as current which was dated: 07/16/19 Day of Discharge: 07/23/19 - Dietary and Speech Recommendations Dietitian Recommendations/Changes: Rec diet change to 2000 calorie; cardiac/low sodium. Rec order Radhames 1 packet BID for wound healing--order from pharmacy. - Follow Up Care Primary Care Physician: Carolyn Asif NP-C [Primary Care Provider] - Please follow up with your Primary Care Physician in: 1 Week Please Follow Up With: Facundo Menard MD When: Call 07/26/2019 to schedule lower extremity angiogram in 1-2 weeks Please Follow Up With: Wade Garza MD When: 3 weeks Please Follow Up With: Juarez Parker DPM When: Follow-up in office July 27
--- NOTE | 2019-07-23 16:05 | PCM.DC.SUM ---
Discharge Date and Diagnosis Date of Admission: 07/16/19 Date of Discharge: 07/23/19 - Primary Discharge Diagnosis Active and Suspected Problems 1. Left forefoot cellulitis secondary to infected diabetic left great toe ulcer with MSSA 2. Chest pain, history of CAD status post stents x6- ACS ruled out 3. Atrial flutter, history of atrial fibrillation 4. Peripheral vascular disease 5. Stage III chronic kidney disease 6. History of PE 7. Type 2 diabetes mellitus 8. Hypertension 9. Hyperlipidemia 10. GERD - Secondary Discharge Diagnosis Chronic Problems History of left heart catheterization (Chronic 07/23/19) Segmented LV systolic dysfunction- Moderate LVEF: by LV gram 50 % Depressed Left Ventricular systolic function - Mild Triple vessel CAD of the LM, LAD, LCX, RCA Widely patent FULLER To LAD; Widely patent SVG to OM; Occluded SVG to RCA (old) Widely patent stents x 3 to proximal, mid and distal RCA. 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 This could be gout or infectious arthropathy. Erosion and edema surrounding the third proximal and distal phalanges and joints which could be perhaps gouty arthritis or infectious arthritis and osteomyelitis. Additional erosions at the medial cuneiform and proximal end of the first phalanx which could be due to gouty arthritis or infectious arthritis. Additional soft tissue at the fourth proximal interphalangeal joint which could be infectious arthritis or gouty arthritis. In the settings of possible infectious arthritis there is likely also osteomyelitis. at 2013 Reported and signed by: Haroon Pitts MD Electronically Signed: Haroon Pitts MD at 20:12 EST Tel , Service support , Foot X-Ray 07/20/19 14:05 IMPRESSION: Status post amputation of the first digit at the mid metatarsal. Erosion of the third digit middle and distal phalanx persistent osteomyelitis.. Electronically Signed: Queenie Ramos MD at 15:47 EST Tel , Service support , Dr. Parker- podiatry Dr. Wells- ID Dr. Garza-cardiology Operations: None Procedures: Cardiac catheterization, - - left foot partial first ray amputation 07/20/2019 Summary of Care Provided: The patient is a 79 year old M admitted 07/16/2019 due to left great toe infection. 1. Left forefoot cellulitis secondary to infected diabetic left great toe ulcer with MSSA-status post left foot partial first ray amputation 07/20/[address] Parker. IV cefazolin during admission. Wound culture growing MSSA. Tissue pathology pending. Blood cultures showing no growth. ID consulted during admission. Transition to oral doxycycline for 2 weeks at discharge. Follow-up with wound center and podiatry to determine if a longer course is necessary. Follow-up with podiatry on Friday, follow-up with wound center in 1 week. 2. Chest pain-history of CAD status post stents x6-cardiology consulted. Echocardiogram 07/21/2019 demonstrated EF 65%, stage II diastolic dysfunction, mild mitral valve insufficiency. Continue aspirin, Plavix, beta-deborah. Cardiac catheterization 07/23/2019 demonstrated nonobstructive coronary arteries. Initiated on amiodarone by cardiology. Follow-up with cardiology, Dr. Garza in 3 weeks. 3. Atrial flutter, history of atrial fibrillation-continue Eliquis, metoprolol. Follow-up with Dr. Garza in 3 weeks as noted above. Anticipate cardioversion. 4. Peripheral vascular disease -left lower extremity peripheral angiogram initially planned for 07/23/[address] Menard however this was postponed due to heart cath. Ankle brachial index completed which revealed a left and right moderately severe atrial occlusive disease. Patient will need peripheral angiogram gram completed and 1 to 2 weeks, he is to call on Friday morning to arrange this. His Plavix and Eliquis will need held per vascular recommendations prior to surgery. 5. Stage III chronic kidney disease-stable, trend BMP. 6. History of PE-on Eliquis. 7. Type 2 diabetes mellitus-continue glipizide. 8. Hypertension-stable, continue Lasix, metoprolol regimen. 9. Hyperlipidemia-lipid panel pending. Not on statin. 10. GERD- continue PPI. General: Alert, Oriented x3, Cooperative HEENT: Atraumatic, PERRLA, EOMI, Normocephalic Neck: Supple, No JVD, Negative Carotid Bruits Lungs: Clear to auscultation, Normal air movement Cardiovascular: Regular rate, Regular Rhythm, Normal S1, Normal S2, No murmurs Abdomen: Bowel Sounds Present, Soft, Non Tender, Non-Distended Extremities: No clubbing, No cyanosis, No edema, Capillary Refill Less than 3 Seconds Skin: No rashes, No breakdown-left foot dressing intact. Musculoskeletal: No Tenderness to Palpation of Joints or Extremities Neurological: Cranial nerves II-XII grossly intact, Neuro grossly intact Psych/Mental Status: Normal Affect, Appropriate Patient seen and examined prior to discharge. Physical assessment as noted above. Patient is stable for discharge with follow up recommendations as noted above. This patient was seen by UELA Woodward under the supervision of Dr. Grove. - Physical Exam Vitals/I&O's: Vital Signs Temp Pulse Resp BP Pulse Ox 97.8 F 78 16 157/81 H 98 07/23/19 12:11 07/23/19 12:11 07/23/19 12:11 07/23/19 12:11 07/23/19 12:11 Oxygen Flow Rate (L/min) 2 Oxygen Delivery Method Room Air Weight: 250 lb 14.177 oz Body Mass Index (BMI) 41.7 Intake and Output for Last 24 Hours 07/21/19 07/22/19 07/23/19 23:59 23:59 23:59 Intake Total 1578.25 / 1578.25 1720.75 / 1720.75 681.25 / 681.25 Output Total 1725 / 1725 915 / 915 825 / 825 Balance -146.75 / -146.75 805.75 / 805.75 -143.75 / -143.75 Microbiology Past 72 Hours 07/20/19 14:06 Tissue - Toe Gram Stain - Final 07/20/19 14:06 Tissue - Toe Wound Culture - Final No growth aerobically. 07/20/19 14:06 Tissue - Toe Anaerobic Culture - Preliminary No growth in 48 hours. 07/20/19 13:59 Tissue - Toe Gram Stain - Final 07/20/19 13:59 Tissue - Toe Wound Culture - Preliminary No growth-Final to follow 07/20/19 13:59 Tissue - Toe Anaerobic Culture - Preliminary No growth in 48 hours. 07/16/19 12:06 Blood Culture (Wb) - Left Wrist Blood Culture - Final No growth in 5 days. 07/16/19 11:30 Blood Culture (Wb) - Arm Right Blood Culture - Final No growth in 5 days. Laboratory Results 07/22/19 16:22: POC Glucose 237 H 07/22/19 21:52: POC Glucose 223 H 07/23/19 06:16: Sodium 139, Potassium 4.4, Chloride 111 H, Carbon Dioxide 23.0, Anion Gap 5, BUN 15, Creatinine 1.40 H, Estim Creat Clear Calc 36.61, Est GFR (MDRD) Af Amer 63, Est GFR (MDRD) Non-Af 52 L, BUN/Creatinine Ratio 10.7, Glucose 213 H, Calcium 8.3 L, Triglycerides 136, Cholesterol 97, LDL Cholesterol 27, VLDL Cholesterol 27, HDL Cholesterol 43 07/23/19 06:24: POC Glucose 204 H 07/23/19 11:28: POC Glucose 231 H Current Medications Acetaminophen (Tylenol) 650 mg PO Q6H PRN PRN PRN Reason: Pain Score 1-3/Temp > 100.7 F Last Admin: 07/21/19 09:35 Dose: 650 mg Documented by: Amiodarone HCl (Cordarone) 200 mg PO DAILY [facility] Last Admin: 07/23/19 10:26 Dose: 200 mg Documented by: Apixaban (Eliquis) 2.5 mg PO BID [facility] Last Admin: 07/21/19 12:19 Dose: Not Given Documented by: Clopidogrel Bisulfate (Plavix) 75 mg PO DAILY [facility] Last Admin: 07/23/19 06:14 Dose: 75 mg Documented by: Doxycycline Monohydrate (Doxycycline) 100 mg PO BID [facility] Last Admin: 07/23/19 14:32 Dose: 100 mg Documented by: Glipizide (Glucotrol) 10 mg PO BID@0800,1700 [facility] Last Admin: 07/23/19 10:25 Dose: 10 mg Documented by: Glucagon () 1 mg IM .X1 PRN PRN Reason: Hypoglycemia Heparin Sodium (Beef Lung) (Heparin 500 Unit/5 Ml (100/Ml)) 500 unit IV UD PRN PRN Reason: HEPARIN FLUSH Hydralazine HCl (Apresoline Iv) 10 mg IV Q8H PRN PRN PRN Reason: for SBP>160 Dextrose (Dextrose 10%-Water) 250 mls @ 999 mls/hr IV .Q16M PRN; Protocol PRN Reason: HYPOGLYCEMIA Sodium Chloride () 250 mls @ 15 mls/hr IV .[id number] PRN PRN Reason: Saline Flush Last Infusion: 07/22/19 09:13 Dose: Infused Documented by: Sodium Chloride () 1,000 mls @ 75 mls/hr IV .[id number] [facility] Last Infusion: 07/23/19 11:21 Dose: 75 mls/hr Documented by: Insulin Human Lispro (Humalog Kwikpen (Bkc)) 0 unit SC ACHS [facility]; Protocol Last Admin: 07/23/19 11:28 Dose: 4 u Documented by: Labetalol HCl (Trandate) 5 mg IV X1 PRN PRN Reason: SBP > 160 prior to sheath pull Stop: 07/25/19 08:06 Losartan Potassium (Cozaar) 25 mg PO DAILY [facility] Last Admin: 07/23/19 10:26 Dose: 25 mg Documented by: Metoprolol Tartrate (Lopressor (Beta Deborah)) 25 mg PO DAILY@2000 [facility] Last Admin: 07/22/19 19:55 Dose: 25 mg Documented by: Metoprolol Tartrate (Lopressor (Beta Deborah)) 50 mg PO DAILY@0800 [facility] Last Admin: 07/23/19 06:14 Dose: 50 mg Documented by: Nitroglycerin (Nitrostat) 0.4 mg SUBLINGUAL Q5M PRN PRN Reason: CARDIAC/CHEST PAIN Last Admin: 07/21/19 12:31 Dose: 0.4 mg Documented by: Pantoprazole Sodium (Protonix) 20 mg PO DAILY [facility] Last Admin: 07/23/19 06:14 Dose: 20 mg Documented by: Sodium Chloride () 10 - 40 ml IV UD PRN PRN Reason: SALINE FLUSH Last Admin: 07/23/19 09:09 Dose: 10 ml Documented by: Sodium Chloride () 10 - 40 ml IV UD PRN PRN Reason: SALINE FLUSH Timolol Maleate (Timoptic) 1 drop EACH EYE BID [facility] Last Admin: 07/23/19 10:26 Dose: 1 drop Documented by: Tramadol HCl (Ultram) 150 mg PO 0600 [facility] Last Admin: 07/23/19 06:14 Dose: 150 mg Documented by: Tramadol HCl (Ultram) 50 mg PO 1400 [facility] Last Admin: 07/23/19 14:22 Dose: 50 mg Documented by: Home Medications: Medications to take at Discharge Furosemide [Lasix] 80 mg PO DAILY 05/20/14 Metoprolol Tartrate [Lopressor (beta deborah)] 25 mg PO DAILY@199905/20/14 Timolol 0.5% [Timoptic] 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 Clopidogrel Bisulfate [Plavix] 75 mg PO DAILY 01/15/17 Pantoprazole Sodium [Protonix] 20 mg PO DAILY 01/15/17 Probenecid 500 mg PO BID 11/25/17 Alirocumab [Praluent Pen] 75 mg SQ UD 07/16/19 Apixaban [Eliquis] 2.5 mg PO BID 07/16/19 Metoprolol Tartrate [Lopressor (beta deborah)] 50 mg PO DAILY@0800 07/16/19 glipiZIDE [Glucotrol] 10 mg PO BID 07/16/19 traMADol [Ultram] 50 mg PO Q6H PRN PRN 07/16/19 Amiodarone HCl [Cordarone] 200 mg PO DAILY tab 07/23/19 Doxycycline 100 mg PO BID 14 Days cap 07/23/19 Losartan Potassium [Cozaar] 25 mg PO DAILY tab 07/23/19 Primary Care Physician: Carolyn Asif, DRONE OPERATOR-C [Primary Care Provider] - Please follow up with your Primary Care Physician in: 1 Week Please Follow Up With: Facundo Menard MD When: Call 07/26/2019 to schedule lower extremity angiogram in 1-2 weeks Please Follow Up With: Wade Garza MD When: 3 weeks Please Follow Up With: Juarez Parker DPM When: Follow-up in office July 27 Please Follow Up With: Clinic,Wound When: 1 Week Disposition: Custodial facility Minutes spent on discharge:: 35 Patient Condition:: Stable Medical Necessity - Tobacco Use Smoking Status: Former smoker Tobacco Use: Cigarettes Meaningful Use Info Meaningful Use Diagnoses (Choose all that apply): None applicable
[2019-07-23 16:25] LABS: Bedside Glucose 256 mg/dL (70-110)
--- NOTE | 2019-07-23 17:36 | NURSING ---
Report called to Erin YANEZ at [facility] at 1720.
--- NOTE | 2019-07-23 17:45 | NURSING ---
Reviewed and agreed on all charting with Gallito العلي
== END 2019-07-23 17:37 | disposition skilled nursing facility (03) | DRG 617 ==
LOC: ED 12:05 → MS3 14:08 → PCU 07-21 15:47 → MS3 07-22 10:20 → PCU 07-22 10:20
PROVIDERS: Anesthesiology; Hospitalist; Internal Medicine Cardiovascular Disease; Podiatrist Foot & Ankle Surgery; Emergency Provider Emergency Medicine; Family Provider Nurse Practitioner Primary Care; PCP Nurse Practitioner Primary Care; Visit Provider Internal Medicine
PROC: 0Y6N0Z9 Detachment at Left Foot, Partial 1st Ray, Open Approach (ICD-10-PCS; principal; 2019-07-20 12:20)
DX: E11.621 Type 2 diabetes mellitus with foot ulcer (principal); I48.92 Unspecified atrial flutter; E87.2 Acidosis; L03.116 Cellulitis of left lower limb; Z68.41 Body mass index [BMI] 40.0-44.9, adult; I25.810 Atherosclerosis of coronary artery bypass graft(s) without angina pectoris; M86.8X7 Other osteomyelitis, ankle and foot; I25.10 Atherosclerotic heart disease of native coronary artery without angina pectoris; E11.42 Type 2 diabetes mellitus with diabetic polyneuropathy; E11.22 Type 2 diabetes mellitus with diabetic chronic kidney disease; L97.524 Non-pressure chronic ulcer of other part of left foot with necrosis of bone; N18.3 Chronic kidney disease, stage 3 (moderate); E66.9 Obesity, unspecified; E11.69 Type 2 diabetes mellitus with other specified complication; R07.9 Chest pain, unspecified; E78.5 Hyperlipidemia, unspecified; K21.9 Gastro-esophageal reflux disease without esophagitis; I12.9 Hypertensive chronic kidney disease with stage 1 through stage 4 chronic kidney disease, or unspecified chronic kidney disease; B95.61 Methicillin susceptible Staphylococcus aureus infection as the cause of diseases classified elsewhere; I73.9 Peripheral vascular disease, unspecified; Z79.84 Long term (current) use of oral hypoglycemic drugs; Z79.02 Long term (current) use of antithrombotics/antiplatelets; Z86.711 Personal history of pulmonary embolism; Z95.1 Presence of aortocoronary bypass graft; Z87.891 Personal history of nicotine dependence; Z95.5 Presence of coronary angioplasty implant and graft; Z79.01 Long term (current) use of anticoagulants; I25.2 Old myocardial infarction
CPT/HCPCS: 36415; 73630; 73718; 80048; 80053; 80061; 80202; 82962; 83036; 83605; 84484; 85025; 85610; 85652; 85730; 86140; 87015; 87040; 87070; 87075; 87077; 87102; 87116; 87176; 87186; 87205; 87206; 87640; 88304; 88305; 88311; 88312; 93005; 93306; 93459; 93922; 97110; 97116; 97163; 97166; 97530; 97535; 97802; 99285; J7030; J7040; J7050; Q9957; Q9967; A4216; C1769; C1894; C8929

== ENCOUNTER 2019-08-01 09:50 | Inpatient (IN) | payer MEDICARE, SELFPAY ==
[2019-07-20 11:32] VITALS: BMI 41.7
[2019-08-01] VITALS (42 sets, daily range): BP systolic 54–133; BP diastolic 33–88; PULSE 58–68; RESP 12–21; TEMP 34.6–36.6; O2SAT 93–100; BMI 59.3; BMI 37.5; BMI 37.4
[2019-08-01] MEDS: Etomidate 20 MG/10 ML Vial IV (09:59)
[2019-08-01] MEDS: Succinylcholine Chloride 200 MG/10 ML Vial 120 MG IV (10:00)
[2019-08-01 10:01] LABS: Bedside Glucose 91 mg/dL (70-110)
--- NOTE | 2019-08-01 10:19 | EKG12_ITS ---
Test Reason : UNRESPONSIVE Blood Pressure : / mmHG Vent. Rate : 061 BPM Atrial Rate : 244 BPM P-R Int : 000 ms QRS Dur : 116 ms QT Int : 468 ms P-R-T Axes : 231 -01 100 degrees QTc Int : 471 ms Atrial flutter with 4:1 A-V conduction ST & T wave abnormality, consider anterior ischemia Prolonged QT Abnormal ECG Confirmed by LEAH BERRY, EVIN ([id number]), video editor AMY VILLASENOR ([id number]) on 08/04/2019 1:34:39 PM Referred By: LOGAN Confirmed By:EVIN LYNN MD
--- NOTE | 2019-08-01 10:19 | CT_ITS ---
STUDY: CT BRAIN WITHOUT CONTRAST REASON FOR EXAM: Male, 79 years old. Unresponsive during breakfast today, recent toe surgery, diabetes, hypertension. RADIATION DOSAGE (If Supplied By Facility): CTDIvol = ( 44.99 ) mGy, DLP = ( 812.98 ) mGycm TECHNIQUE: Transaxial CT imaging of the brain was performed without administration of intravenous contrast material. Individualized dose optimization techniques were used for this CT. COMPARISON: No relevant priors. FINDINGS: Normal soft tissue structures. Normal calvarium. Old lacunar infarction noted in the basal ganglia bilaterally. There is mild periventricular and subcortical white matter lucency. There is age indeterminate hypodensity in the left centrum semiovale white matter.Normal basal ganglia and thalami. Normal brainstem. Normal cerebellum. There is no intracranial hemorrhage. There is bilateral ethmoid sinus disease. Tubes are noted entering the oral cavity. CT/Brain/Head without Contrast IMPRESSION: 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 Age indeterminate hypodensity in the left centrum semiovale white matter. Acute ischemia is hard to exclude. MRI can be obtained for further evaluation. Bilateral ethmoid sinus disease. N.B. : The above information has been verbally conveyed by Wade Mendez to Wade Williamson MD , , on 08/01/2019 11:56:29 (ET). Electronically Signed: Wade Mendez, at 11:42 EST Tel , Service support ,
[2019-08-01] MEDS: 0.9% Normal Saline 1,000 ML 999 ML IV ×3 (10:20→10:52)
--- NOTE | 2019-08-01 10:20 | RAD_ITS ---
STUDY: X-RAY CHEST REASON FOR EXAM: Male, 79 years old. ET TUBE PLACEMENT, CENTRAL LINE, OG PLACEMENT TECHNIQUE: 2 AP views of the chest were obtained. COMPARISON: None. FINDINGS: An endotracheal tube is noted with tip above the vincent. A nasogastric tube is noted with tip coursing inferiorly below the diaphragm. A right-sided central venous catheter is noted with tip projecting over the right atrium. Patient is status post median sternotomy. There is a questionable small right pleural effusion and airspace disease at the right lung base. Remaining lungs are clear. There is no demonstrated pleural abnormality. Normal size heart. Normal mediastinum and guillermina. Normal visualized pulmonary arteries. Normal visualized aortic arch and descending thoracic aorta. Normal visualized thoracic spine. Normal visualized ribs, clavicles, and shoulders. There is no demonstrated abnormality of the visualized soft tissue structures of the upper abdomen. RAD/Chest 1 View (Portable) IMPRESSION: Tubes and lines as described. Questionable small effusion and airspace disease at the right lung base. Electronically Signed: Wade Mendez, at 11:35 EST Tel , Service support ,
--- NOTE | 2019-08-01 10:26 | ED.DCSUM_ITS ---
History of Present Illness Chief Complaint: Unresponsive Informant: Manual Arts Therapist, [facility] Narrative: Patient reportedly is admitted to the hospital with a left great toe infection. He underwent amputation and has been on antibiotics for MSSA. He also had chest pain and atrial flutter. He had a heart catheterization that showed nonocclusive disease. He was started on amiodarone in addition to Plavix and Xarelto. Patient this morning reportedly had a blood sugar reading that was low. I was informed he received his insulin and went to breakfast and ate. He then went back to his room where he was found unresponsive. Exact time frame of events is currently unknown. EMS tells me that her blood sugar was 152. In route to the hospital the patient had apnea and desatted to the 80s. He received bagged respirations and then started breathing on his own. Patient is unresponsive to voice and pain. Past Medical History - Allergies and Home Meds Allergies/Adverse Reactions: Allergies allopurinol Adverse Reaction (Verified 07/16/19 11:02) Other exenatide [From Byetta] Adverse Reaction (Verified 07/16/19 11:02) Other insulin aspart [From Novolog] Adverse Reaction (Verified 07/16/19 11:02) Other insulin glargine, human recombin. a [From Lantus] Adverse Reaction (Verified 07/16/19 11:02) Other morphine Adverse Reaction (Verified 07/16/19 11:02) Other DOES NOT HELP PAIN, MAKES ME FEEL OUT OF IT Oduftof-Ktx-Peo Reductase Inhibitor Adverse Reaction (Verified 07/16/19 11:02) Other Primary Care Physician: Carolyn Asif NP-C [Primary Care Provider] - Surgical History: angioplasty, cholecystectomy, coronary bypass surgery, total knee arthroplasty, tonsillectomy, - - Vein stripping, rectal fistula repair, ORIF fractured leg, bilateral cataract extraction Smoking Status: Former smoker - Family History Paternal Family History: Reports: - - The patient's father at age of 69 with a history of coronary artery disease and diabetes mellitus. The patient's mother lived to be 95 years of age, and passed of old age. Review of Systems ROS: Unable to Obtain Physical Exam Vital Signs/Narrative: Vital Signs Temp Pulse Resp BP Pulse Ox 08/01/19 10:11 62 19 H 95 08/01/19 10:06 94.3 F L 63 14 60/42 L 99 08/01/19 09:51 95.6 F L 62 20 H 95/56 L 97 Inital Vital Signs reviewed: Yes General: Well nourished, Well developed, Obese Head: Normocephalic, Atraumatic Eyes: Perrl, EOMI, - - No corneal reflex ENT: Moist mucous membranes, No rhinorrhea Neck: Supple, Nontender Cardiovascular: Regular rate, No murmurs, Irregular Respiratory: Chest nontender, Rhonchi, - - Agonal respirations Abdomen: Soft, Nontender, Nondistended, Normal bowel sounds Back: Normal Inspection Extremities: Edema - Bilateral lower extremity pitting edema, - - Left foot operative bandage in place Skin: Normal color, No rash Neurological: Coma Diagnostic/Tx/Re-eval - Rhythm Strip Rhythm Strip: Atrial Flutter 4:1 conduction Rate: 61 - Medical Decision Making Patient underwent RSI with etomidate and succinylcholine. An 8-0 endotracheal tube was placed on the first attempt without any difficulty. OG was placed. Patient's blood pressure after placement of OG was 60/42. Therefore a right IJ central line was placed under sterile ultrasound guidance. This obtained on the first attempt without any difficulty and sutured in place. Dark red nonpulsatile blood was obtained. Post procedure x-ray was obtained. Adequate positioning of support lines was noted. CT of the brain was obtained which shows a age-indeterminate area of hypodensity. I do not believe that this could render him hypotensive, hypothermic, and unresponsive with apnea. Basic labs showed a lactic acid of 2.1. Normal white count. Patient received IV fluids and was placed on a Olamide hugger. He received sedation and required pressor support with levo fed. I administered vancomycin given his recent MSSA infection and as he is still on antibiotics (reportedly doxycycline) as an outpatient. We continue to check his blood sugar and it did come down eventually around noon was 65 and we gave D50 and placed him on D5 half-normal. I spoke with Dr. Gay and Dr. Yang and we will plan admission to the ICU. - Critical Care Time Critical care time (excluding procedures): 30-74 minutes - 35 minutes ED Disposition - Plan for ED Patient: Diagnosis: Airway intubation performed without difficulty, Encounter for central line placement, Unresponsive, Respiratory failure, Hypothermia Referrals: Carolyn Asif, DIRECTOR OF MUSIC THERAPY-C [Primary Care Provider] -
[2019-08-01 10:38] LABS: Absolute Lymphocyte Count 1.71 X10^3/uL (0.83-4.51); Absolute Neutrophil Count 3.9 X10^3/uL (2.0-7.7); Basophil# 0.04 X10^3/uL; Basophil% 0.6 % (0-1); Eosinophil# 0.12 X10^3/uL; Eosinophils% 1.9 % (0-5); Hematocrit 34.6 % (40-54); Hemoglobin 10.8 g/dL (13.0-16.5); Lymphocyte # 1.71 X10^3/ul (4.0); Lymphocyte % 26.6 % (19-41); Mean Corp Hgb Conc 31.2 g/dL (32-36); Mean Corpuscular Hgb 29.1 pg (27.0-32.0); Mean Corpuscular Volume 93.3 fL (80-94); Mean Platelet Vol. 9.8 fl (6.2-12.0); Monocyte# 0.66 X10^3/uL; Monocyte% 10.3 % (0-10); NRBC Flagged by Analyzer 0 % (0-5); Neutrophil # 3.85 X10^3/uL (2.7-7.7); Neutrophil % 59.8 % (47-70); Platelet Count 326 K/mm3 (150-450); RBC Distribution Width CV 15.2 % (11.6-14.6); RBC Distribution Width SD 52.2 fl (35.1-43.9); Red Blood Count 3.71 M/mm3 (4.6-6.2); White Blood Count 6.4 K/mm3 (4.4-11.0)
[2019-08-01 10:44] LABS: Bacteria 0 SEEN /hpf (None Seen); Mucous, Urine 0 SEEN /hpf (<or=2+); Red Blood Cells-Urine 0 SEEN /hpf (0-5); Squamous Epithelial Cells - UA 0 SEEN /hpf (0-5); White Blood Cells 0 SEEN /hpf (0-5)
[2019-08-01 10:48] LABS: AST(SGOT) 28 U/L (15-37); Alanine Aminotransfer ALT/SGPT 21 U/L (16-61); Albumin, Serum 2.3 g/dL (3.2-5.0); Alkaline Phosphatase 173 U/L (45-117); Anion Gap 6 (5-15); BUN 52 mg/dL (7-18); BUN/Creat Ratio 28.4 RATIO (10-20); Bilirubin, Direct 0.14 mg/dL (0.00-0.30); Calcium,Total 8.5 mg/dL (8.5-10.1); Chloride 108 mmol/L (98-107); Creatinine, Serum 1.83 mg/dL (0.70-1.30); EST Glomerular Filtration Rate 38 mL/min (>60); Est Glom Filt Rate - Afr Amer 46 mL/min (>60); Estimated Creatinine Clearance 33.24 ml/min; Globulin 4.8 g/dL (2.2-4.2); Glucose 105 mg/dL (74-106); Lipase 543 U/L (73-393); Potassium 4.1 mmol/L (3.5-5.1); Protein, Total 7.1 g/dL (6.4-8.2); Sodium Level 140 mmol/L (136-145)
[2019-08-01 10:49] LABS: Color, Urine Yellow (Yellow); Glucose, Dipstick Normal (Normal); Ketone-Dipstick Negative (Negative); Leukocyte Esterase-Dipstick Negative /ul (Negative); Nitrite-Dipstick Negative (Negative); Occult Blood-Urine Negative /ul (Negative); Protein-Dipstick Negative (Negative); Specific Gravity, Urine 1.015 (1.002-1.030); Urine Bilirubin Dipstick Negative (Negative); Urine Clarity Clear (Clear); Urine Urobilinogen Normal (Normal)
[2019-08-01 10:53] LABS: International Normalized Ratio 1.4; Prothrombin Time (Protime)PT. 16.8 SECONDS (11.7-14.9)
[2019-08-01 10:54] LABS: Partial Thromboplast Time 32.1 Seconds (24.1-36.2)
[2019-08-01 11:06] LABS: BNP,B-Type NATRIURETIC PEPTIDE 163.4 pg/mL (0-100)
--- NOTE | 2019-08-01 11:15 | CPS ---
ABG attempted, venous results obtained. Dr Williamson notified of Venous blood gas results. Dr. Williamson stated no redraw needed.Sample type changed.
[2019-08-01 11:16] LABS: Base Excess -4 mmol/L (-2 to +2); Bicarbonate 22.8 mmol/L (22-26); FI02 45; Mode A-C; O2 Delivery Device Vent; PEEP 5; PO2 28 mmHG (75-100); RR 12; SITE R Brachial; SO2 44 % (95-99); Time Given 1106; Total Carbon Dioxide 24 mmol/L; Vt 500; pCO2 48.8 mmHg (35-45); pH 7.28 (7.35-7.45)
[2019-08-01 11:16] LABS: Bedside Glucose 89 mg/dL (70-110)
[2019-08-01 11:18] LABS: Lactic Acid 2.1 mmol/L (0.4-1.9)
[2019-08-01 11:54] LABS: Blood Gas Specimen Type VEN
[2019-08-01] MEDS: Dextrose 10%-Water 250 ML 999 ML IV (12:19)
[2019-08-01 12:20] LABS: Bedside Glucose 65 mg/dL (70-110)
[2019-08-01] MEDS: Dext 5%-0.45% NS 1,000 ML 125 ML IV (12:27)
--- NOTE | 2019-08-01 12:50 | PCM.HP.STD ---
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 Qualifiers: Diabetic foot ulcer location: toe Diabetes mellitus type: type 2 Qualified Code(s): E11.621 - Type 2 diabetes mellitus with foot ulcer; L97.524 - Non-pressure chronic ulcer of other part of left foot with necrosis of bone (5) Peripheral vascular disease Status: Chronic (6) Peripheral neuropathy Status: Chronic (7) History of pulmonary embolism Status: Chronic (8) Hyperlipidemia Status: Chronic (9) History of CVA (cerebrovascular accident) Status: Chronic (10) CKD (chronic kidney disease) stage 3, GFR 30-59 ml/min Status: Chronic (11) Ulcer of right foot with necrosis of bone Status: Chronic (12) Osteomyelitis Status: Chronic Qualifiers: Osteomyelitis type: other acute Osteomyelitis location: foot Laterality: left Qualified Code(s): M86.172 - Other acute osteomyelitis, left ankle and foot (13) GERD (gastroesophageal reflux disease) Status: Chronic (14) Coronary artery disease involving [place] coronary artery of [place] heart Status: Chronic (15) Gout Status: Chronic History of Present Illness Date of Admission: 08/01/19 Chief Complaint: Unresponsiveness. The patient is a 79 year old M patient with past medical history as mentioned above presented to the emergency room from senior care because of unresponsiveness. At this time, patient is intubated, on mechanical ventilation and on sedation. Patient's and brother were at the bedside. Reportedly according to the ER physician and nursing staff at the senior care, patient was given his insulin around 7 AM this morning, went to breakfast and while he is eating his breakfast, went back to his room and he was found unresponsive. When the squad arrived, blood sugar was 152 mg/dL. In route to the hospital, patient became apneic and pulse ox came down to mid 80s, he was bagged and he was breathing on his own. Later, I called the senior care and I was informed by the nursing staff that his sugar was 68 mg/dL around 7 AM this morning. He received 25 units of 70/30 insulin and he went for breakfast and around 9:15 AM, he was found unresponsive in his home. According to the patient's , patient's PCP informed the patient that his blood sugar should be always around 150 mg/dL. She mentioned that if his blood sugar goes down to 80s, he feels sick and he developed symptoms of hypoglycemia. His brother also mentioned that few months ago, he passed out at his house and his sugar was 52 mg/dL. Patient was discharged from the hospital on July 23, 2019 after admission for left forefoot cellulitis/infected diabetic left big toe ulcer/left big toe osteomyelitis status post left foot partial first ray amputation and he developed MSSA on wound culture and he was discharged on doxycycline for 7 days which was completed. During his last admission, and after surgery, patient developed chest pain with EKG changes for which cardiology consulted and he underwent cardiac catheterization that revealed patent coronary stents without evidence of new lesions and no interventions performed. He was started on amiodarone at that time. Patient was intubated and started mechanical ventilation. Currently, he is on IV midazolam drip for sedation. Patient has been hypotensive, blood pressure has been 80s to 70 systolic and he was started on IV Levophed drip. He was afebrile, no tachycardia. His routine blood work was remarkable for chronic anemia, BUN of 52, creatinine of 1.83. Lactic acid was 2.1. EKG revealed atrial flutter, no acute changes. Troponin was negative. LFT was unremarkable. Lipase was 543. Lactic acid was 2.1. Venous blood gas revealed pH of 7.28, PCO2 of 48 and PO2 of 28. CT scan brain showed no acute findings on my personal review, ending official report. Chest x-ray showed cardiomegaly, elevation of the right hemidiaphragm, no acute infiltrate or consolidation, pending official report. Patient is being admitted for acute encephalopathy probably due to hypoglycemia, hypotension requiring IV vasopressors and also found to have elevated lactic acid and pancreatic lipase. Past Medical History Past Medical History (Chronic Problems): Chronic Problems History of left heart catheterization (Chronic 07/23/19) Segmented LV systolic dysfunction- Moderate LVEF: by LV gram 50 % Depressed Left Ventricular systolic function - Mild Triple vessel CAD of the LM, LAD, LCX, RCA Widely patent FULLER To LAD; Widely patent SVG to OM; Occluded SVG to RCA (old) Widely patent stents x 3 to proximal, mid and distal RCA. 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 (Chronic) Peripheral vascular disease (Chronic) Diabetic foot ulcer (Chronic) Peripheral neuropathy (Chronic) Obesity (Chronic) History of pulmonary embolism (Chronic) Hypertension (Chronic) Hyperlipidemia (Chronic) History of CVA (cerebrovascular accident) (Chronic) CKD (chronic kidney disease) stage 3, GFR 30-59 ml/min (Chronic) Ulcer of right foot with necrosis of bone (Chronic) Osteomyelitis (Chronic) Ulcer of right foot with fat layer exposed (Chronic) GERD (gastroesophageal reflux disease) (Chronic) Coronary artery disease involving [place] coronary artery of [place] heart (Chronic) Gout (Chronic) Lumbosacral stenosis (Chronic) Lumbosacral radiculopathy (Chronic) PAD (peripheral artery disease) (Chronic) Diabetes mellitus type II, controlled (Chronic) Allergies allopurinol Adverse Reaction (Verified 07/16/19 11:02) Other exenatide [From Byetta] Adverse Reaction (Verified 07/16/19 11:02) Other insulin aspart [From Novolog] Adverse Reaction (Verified 07/16/19 11:02) Other insulin glargine, human recombin. a [From Lantus] Adverse Reaction (Verified 07/16/19 11:02) Other morphine Adverse Reaction (Verified 07/16/19 11:02) Other DOES NOT HELP PAIN, MAKES ME FEEL OUT OF IT [id number] Reductase Inhibitor Adverse Reaction (Verified 07/16/19 11:02) Other Home Medications: Ambulatory Orders Medication Instructions Recorded Alirocumab [Praluent Pen] 75 mg SQ UD 08/01/19 Apixaban [Eliquis] 2.5 mg PO BID 08/01/19 Clopidogrel Bisulfate [Plavix] 75 mg PO DAILY 08/01/19 Furosemide [Lasix] 80 mg PO DAILY 08/01/19 Glipizide 10 mg PO BID 08/01/19 Metoprolol Tartrate 25 mg PO 199908/01/19 Metoprolol Tartrate [Lopressor 50 mg PO 0800 08/01/19 (Beta Deborah)] Pantoprazole Sodium [Protonix] 20 mg PO DAILY 08/01/19 Probenecid 500 mg PO BID 08/01/19 Timolol 0.5% [Timoptic] 1 drp EACH EYE BID 08/01/19 traMADol [Ultram (G)] 50 mg PO Q6H PRN PRN 08/01/19 Surgical History: angioplasty, cholecystectomy, coronary bypass surgery, total knee arthroplasty, tonsillectomy, - - Vein stripping, rectal fistula repair, ORIF fractured leg, bilateral cataract extraction Lives: Long Term Smoking Status: Former smoker Alcohol: None Drugs: None - *Family History Paternal History Items: - - The patient's father at age of 69 with a history of coronary artery disease and diabetes mellitus. The patient's mother lived to be 95 years of age, and passed of old age. Review of Systems Constitutional: Reports: - - Unobtainable, patient is intubated and sedated. Eyes: Reports: - - Unobtainable, patient is intubated and sedated. HEENT: Reports: - - Unobtainable, patient is intubated and sedated. Cardiovascular: Reports: - - Unobtainable, patient is intubated and sedated. Respiratory: Reports: - - Unobtainable, patient is intubated and sedated. Gastrointestinal: Reports: - - Unobtainable, patient is intubated and sedated. Genitourinary: Reports: - - Unobtainable, patient is intubated and sedated. Musculoskeletal: Reports: - - Unobtainable, patient is intubated and sedated. Neurological: Reports: - - Unobtainable, patient is intubated and sedated. Psychiatric: Reports: - - Unobtainable, patient is intubated and sedated. VTE Information - Inpt Only VTE Present on Admission: No VTE Mechan Device Prophylaxis: None VTE Pharm Prophylaxis ordered?: Yes Patient Problems: Active and Suspected Problems Airway intubation performed without difficulty (Acute) Encounter for central line placement (Acute) Unresponsive (Acute) Respiratory failure (Acute) Hypothermia (Acute) - Physical Exam Vitals/I&O's: Vital Signs Temp Pulse Resp BP Pulse Ox 94.3 F L 62 18 96/58 L 97 08/01/19 12:33 08/01/19 12:33 08/01/19 12:33 08/01/19 12:33 08/01/19 12:33 Oxygen Flow Rate (L/min) 15 Oxygen Delivery Method Room Air Weight: 261 lb 7.492 oz Body Mass Index (BMI) 37.5 Finger Stick Blood Glucose 65 Intake and Output for Last 24 Hours 07/30/19 07/31/19 08/01/19 23:59 23:59 23:59 Intake Total 1254.54 / 1254.54 Balance 1254.54 / 1254.54 General: - - Intubated, sedated, on mechanical ventilation. HEENT: Atraumatic, EOMI, Normocephalic, Sluggish Pupils Oral: Moist Mucosa, No Gingival or Mucosal Lesions/ Ulcerations Neck: Supple, No JVD, Negative Carotid Bruits, Trachea Midline, Thyroid Normal Size and Texture Lungs: Clear to auscultation, No rhonchi, No wheeze, No rales, Diminished Cardiovascular: Normal S1, Normal S2, No murmurs, PMI Normal, Irregular Rate Abdomen: Bowel Sounds Present, Soft, Non Tender, Non-Distended, No Hepato-splenomegaly, Obese Extremities: No clubbing, No cyanosis, Edema - Trace edema. Skin: No rashes, No breakdown Lymphatic: No Cervical, Supraclavicular, or Inguinal Adenopathy Neurological: - - Unable to assess, patient is sedated and intubated. Psych/Mental Status: - - Unable to assess, patient is intubated, sedated. Laboratory Results 08/01/19 09:57: POC Glucose 91 08/01/19 10:09: WBC 6.4, RBC 3.71 L, Hgb 10.8 L, Hct 34.6 L, MCV 93.3, MCH 29.1, MCHC 31.2 L, RDW Std Deviation 52.2 H, RDW Coeff of Suraj 15.2 H, Plt Count 326, MPV 9.8, Immature Gran % (Auto) 0.800, Neut % (Auto) 59.8, Lymph % (Auto) 26.6, Kerr % (Auto) 10.3 H, Eos % (Auto) 1.9, Baso % (Auto) 0.6, Absolute Neuts (auto) 3.9, Absolute Lymphs (auto) 1.71, Nucleated RBC % 0 08/01/19 10:09: PT 16.8 H, INR 1.4, APTT 32.1 08/01/19 10:09: Sodium 140, Potassium 4.1, Chloride 108 H, Carbon Dioxide 26.0, Anion Gap 6, BUN 52 H, Creatinine 1.83 H, Estim Creat Clear Calc 33.24, Est GFR (MDRD) Af Amer 46 L, Est GFR (MDRD) Non-Af 38 L, BUN/Creatinine Ratio 28.4 H, Glucose 105, Calcium 8.5, Total Bilirubin 0.20, Direct Bilirubin 0.14, AST 28, ALT 21, Alkaline Phosphatase 173 H, Troponin I < 0.015, Total Protein 7.1, Albumin 2.3 L, Globulin 4.8 H, Lipase 543 H 08/01/19 10:09: B-Natriuretic Peptide 163.4 H 08/01/19 10:22: POC Glucose 89 08/01/19 10:42: Lactic Acid 2.1 H* 08/01/19 10:42: Urine Color Yellow, Urine Clarity Clear, Urine pH 6.0, Ur Specific [place] 1.015, Urine Protein Negative, Urine Glucose (UA) Normal, Urine Ketones Negative, Urine Occult Blood Negative, Urine Nitrite Negative, Urine Bilirubin Negative, Urine Urobilinogen Normal, Ur Leukocyte Esterase Negative, Urine RBC 0 SEEN, Urine WBC 0 SEEN, Ur Squamous Epith Cells 0 SEEN, Urine Bacteria 0 SEEN, Urine Mucus 0 SEEN 08/01/19 11:09: Specimen Type KATHARINE, Sample Site R Brachial, pH 7.28 L, Bicarbonate Actual 22.8, POC Total CO2 24, Base Excess -4 L, O2 Saturation 44 L, O2 % 45, ABG pCO2 48.8 H, ABG pO2 28 L*, Respiration Rate 12, O2 Delivery Device Vent, Vent Mode A-C, Tidal Volume 500, POC PEEP 5, Blood Gas Notified Whom ED , Blood Gas Notified Time 1106 08/01/19 12:07: POC Glucose 65 L Current Medications Sodium Chloride () 1,000 mls @ 150 mls/hr IV .Q6H40M CAMILO Midazolam HCl 50 mg/ Sodium (Chloride) 100 mls @ 2 mls/hr CONT INF .Q50H CAMILO; Protocol Last Admin: 08/01/19 10:50 Dose: 1 mg/hr, 2 mls/hr Documented by: Norepinephrine Bitartrate 8 mg (/ Sodium Chloride) 250 mls @ 9.375 mls/hr CONT INF .Q22W26I CAMILO; Protocol Last Titration: 08/01/19 11:40 Dose: 10 mcg/min, 18.8 mls/hr Documented by: Dextrose/Sodium Chloride () 1,000 mls @ 125 mls/hr IV .Q8H CAMILO Last Admin: 08/01/19 12:27 Dose: 125 mls/hr Documented by: Vancomycin HCl 2,000 mg/ (Sodium Chloride) 540 mls @ 250 mls/hr IV X1 ONE Stop: 08/01/19 14:39 Dextrose (Dextrose 10%-Water) 250 mls @ 999 mls/hr IV .Q16M PRN; Protocol PRN Reason: HYPOGLYCEMIA Last Infusion: 08/01/19 12:40 Dose: Infused Documented by: Assessment/Plan All Active Problems Airway intubation performed without difficulty (Acute) Encounter for central line placement (Acute) Unresponsive (Acute) Respiratory failure (Acute) Hypothermia (Acute) This is an 79 years old male patient presented to the emergency room because he was found unresponsive in his room at the senior care, was intubated and started mechanical ventilation upon arrival to ED because were patient was apneic couple of times in route to the hospital and shortly after, he developed hypotension and he was started on IV Levophed drip. #1 unresponsiveness/acute encephalopathy/hypothermia: This is a probably due to hypoglycemia although his blood sugar was 150s when the squad arrived. I was informed by his that patient was informed by his PCP that his blood sugar should be around 150 because blood sugar less than 100 considered very low for him. Reportedly, blood sugar was 68 mg/dL at the senior care today and he received [address] scan brain showed no acute findings, report is pending. EKG revealed atrial flutter, rate is controlled, no new changes. Troponin was negative. Plan: Admit to ICU, keep on n.p.o., maintain Fierro catheter, continue mechanical ventilation, start IV propofol and fentanyl for sedation, IV fluids with dextrose 10%, Accu-Cheks every 4 hours, insulin sliding scale, critical care consult, repeat CBC and CMP tomorrow morning, repeat lipase tomorrow morning, pro time and INR. #2 hypoglycemia: Apparently, patient's blood sugar threshold for hypoglycemia is high, around 90s to 100 mg/dL. Patient was informed by PCP to keep his sugars around 150s. Plan: IV fluids with dextrose 10%, Accu-Cheks every 4 hours, insulin sliding scale. #3 hypotension: Upon arrival, blood pressure was 95/56. It came down to 70 systolic after intubation and received IV midazolam and succinylcholine. At this time, I doubt septic shock or sepsis. Lactic acid is 2.1 which is likely because of hypotension. Chest x-ray showed no acute findings, pending official report. Blood and urine cultures sent. Patient does have a history of recent MSSA left forefoot cellulitis/left big toe osteomyelitis and he completed treatment with doxycycline after discharge from the hospital. Plan to continue IV fluids, continue IV Levophed drip, repeat lactic acid in 3 hours, monitor cultures. At this time, I do not think patient needs IV antibiotics. #4 acute respiratory failure: Start on mechanical ventilation. It is due to the acute encephalopathy and unresponsiveness. Plan to continue mechanical ventilation, start IV fentanyl and propofol for sedation, critical care consult. #5 recent history of left forefoot cellulitis/left big toe MSSA osteomyelitis: Completed 7 days of doxycycline after discharge from the hospital which was on July 23, 2019. Will consult wound care nurse. #6 type 2 diabetes mellitus: At this time, he will on n.p.o., dextrose 10% IV fluids, Accu-Cheks, sliding scale. #7 CAD status post stents: Stable, EKG reviewed, troponin is negative. He had a stents placed on July,. Patient will be n.p.o., will hold Eliquis and Plavix for now. #7 hypertension: At this time, he is a hypertensive. He is on IV Levophed drip. Plan as above. #8 stage III chronic kidney disease: Baseline creatinine is been around 1.3 to 1.8 mg/dL. Admission creatinine is 1.83, stable at baseline. #9 peripheral vascular disease: He supposed to go for angiography as outpatient with Dr. Menard in the near future. #10 history of pulmonary embolism: Eliquis will be held. #11 GERD: Start IV Pepcid twice daily. #12 CODE STATUS: Full code. Discussed with the patient's and brother. #13 DVT prophylaxis: Subcu heparin. This note was generated with [employer] software. It may contain incorrect words, spelling, and punctuation that were not noted in checking the note before signing. Code Visit Inpatient E&M: 56313 Init Hosp L3
[2019-08-01 12:56] LABS: Bedside Glucose 159 mg/dL (70-110)
--- NOTE | 2019-08-01 13:30 | NURSING ---
Patient received from ER, placed on ICU bed and wall monitor. Levophed gtt running at 20 when patient arrived, continued at current rate. Versed gtt d/c'd, propofol and fentanyl on hold for now, pt Rass = -4
[2019-08-01] MEDS: Dextrose 10%-Water 250 ML 100 ML IV ×2 (14:37→17:30)
[2019-08-01] MEDS: Heparin Injection (Vial) 5,000 UNIT/ML VIAL 5000 UNIT SC ×2 (14:39→21:01)
[2019-08-01] MEDS: Famotidine 200 MG/20 ML MDV 20 MG in 0.9% Normal Saline (Pres. free 8 ML 300 MG IV (14:40)
[2019-08-01 14:42] LABS: Reflex Lactate? Y
[2019-08-01 15:00] LABS: Bedside Glucose 133 mg/dL (70-110)
[2019-08-01 15:57] LABS: Lactic Acid 1.6 mmol/L (0.4-1.9)
[2019-08-01 15:58] LABS: International Normalized Ratio 1.8; Prothrombin Time (Protime)PT. 20.7 SECONDS (11.7-14.9)
[2019-08-01 17:46] LABS: Bedside Glucose 208 mg/dL (70-110)
[2019-08-01] MEDS: fentaNYL drip 100 ML 2.5 MCG IV (18:00)
[2019-08-01] MEDS: Dextrose 10%-Water 250 ML 40 ML IV (19:15)
[2019-08-01] MEDS: Dext 5%-0.45% NS 1,000 ML 80 ML IV (21:43)
[2019-08-01] MEDS: Chlorhexidine 15 ML PO (21:44)
[2019-08-01] MEDS: Propofol 10MG/Ml 1,000 MG/100 ML Bottle 3.6 MG CONT INF (21:44)
--- NOTE | 2019-08-01 21:45 | NURSING ---
Pt attempting to sit up in bed, pulling at restraints, despite increasing Fentanyl drip;able to re-direct for a brief time, then pt returns to being restless. Propofol started as per order.
[2019-08-01] MEDS: Insulin Lispro 100 UNIT/ML INSULN.PEN SC (21:50)
[2019-08-01 21:56] LABS: Bedside Glucose 187 mg/dL (70-110)
--- NOTE | 2019-08-01 22:00 | NURSING ---
Propofol placed on hold d/t extreme lowering of pt's BP; Levophed restarted.
[2019-08-02] VITALS (47 sets, daily range): BP systolic 78–140; BP diastolic 26–100; PULSE 65–117; RESP 12–30; TEMP 36.2–37.3; O2SAT 88–100
[2019-08-02] MEDS: Insulin Lispro 100 UNIT/ML INSULN.PEN SC ×2 (01:54→21:44)
[2019-08-02 02:01] LABS: Bedside Glucose 158 mg/dL (70-110)
[2019-08-02] MEDS: Heparin Injection (Vial) 5,000 UNIT/ML VIAL 5000 UNIT SC (05:43)
[2019-08-02 05:50] LABS: Bedside Glucose 129 mg/dL (70-110)
[2019-08-02 05:58] LABS: Absolute Lymphocyte Count 1.01 X10^3/uL (0.83-4.51); Absolute Neutrophil Count 5.5 X10^3/uL (2.0-7.7); Basophil# 0.02 X10^3/uL; Basophil% 0.3 % (0-1); Eosinophil# 0.06 X10^3/uL; Eosinophils% 0.8 % (0-5); Hematocrit 30.3 % (40-54); Hemoglobin 9.4 g/dL (13.0-16.5); Lymphocyte # 1.01 X10^3/ul (4.0); Lymphocyte % 13.9 % (19-41); Mean Corpuscular Hgb 28.7 pg (27.0-32.0); Mean Corpuscular Volume 92.4 fL (80-94); Mean Platelet Vol. 9.7 fl (6.2-12.0); Monocyte# 0.63 X10^3/uL; Monocyte% 8.7 % (0-10); NRBC Flagged by Analyzer 0 % (0-5); Neutrophil # 5.52 X10^3/uL (2.7-7.7); Neutrophil % 75.9 % (47-70); Platelet Count 272 K/mm3 (150-450); RBC Distribution Width SD 50.4 fl (35.1-43.9); Red Blood Count 3.28 M/mm3 (4.6-6.2); White Blood Count 7.3 K/mm3 (4.4-11.0)
[2019-08-02 06:16] LABS: ALB/GLOB Ratio 0.5 RATIO (0.9-2.4); AST(SGOT) 31 U/L (15-37); Alanine Aminotransfer ALT/SGPT 18 U/L (16-61); Alkaline Phosphatase 155 U/L (45-117); Anion Gap 5 (5-15); BUN 41 mg/dL (7-18); BUN/Creat Ratio 26.3 RATIO (10-20); CPK Total, Creatine Kinase 423 U/L (39-308); Chloride 110 mmol/L (98-107); Creatinine, Serum 1.56 mg/dL (0.70-1.30); EST Glomerular Filtration Rate 46 mL/min (>60); Est Glom Filt Rate - Afr Amer 55 mL/min (>60); Glucose 127 mg/dL (74-106); Lipase 935 U/L (73-393); Potassium 3.9 mmol/L (3.5-5.1); Sodium Level 140 mmol/L (136-145); Triglycerides 61 mg/dL
--- NOTE | 2019-08-02 06:30 | NURSING ---
Fentanyl placed on hold for possible extubation; pt doing very well on SBT.
--- NOTE | 2019-08-02 06:40 | NURSING ---
at bedside, formerly [facility] and [facility] reviewed.
--- NOTE | 2019-08-02 06:45 | PCM.CON.CC ---
Reason for Consult Date of Consultation: 08/02/19 Reason for Consultation: Ecephalopathy/Acute Respiratory Failure History of Present Illness: The patient is an 79-year-old male, with a history as outlined below, who initially presented to the emergency department on August 01 after being found unresponsive by nursing staff in the facility with which he resides. The patient apparently was hypoglycemic yesterday morning, but received his regular insulin dose. He then went to breakfast per his normal routine only to return back to his room, where he was found unresponsive and unknown amount of time later. The patient was just discharged from the hospital on July 23 after having been admitted for 1 week with left forefoot cellulitis and infected diabetic foot ulcer. The patient underwent left foot partial first ray amputation on July 20. He also underwent cardiac catheterization on July 23 due to a non-ST segment elevation HI. The patient was noted to have triple-vessel coronary disease with an ejection fraction of approximately 50%. The patient was also seen by infectious diseases who recommended p.o. doxycycline for approximately 2 to 4 weeks. On presentation to the emergency department, the patient was noted to be hypothermic with a temperature of 95.6 ?F. He was hypoxemic requiring a nonrebreather. Initial laboratory evaluation revealed no evidence of a leukocytosis. INR was noted to be 1.4. Chemistry profile revealed an elevated creatinine of 1.83. Alkaline phosphatase was increased to 173. Lipase was elevated to 543. Initial lactate was 2.1. Urine analysis was largely unremarkable. Blood glucose was noted to be 90. CT head revealed old lacunar infarcts in the basal ganglia along with an age indeterminate hypodensity in the left semiovale white matter. Acute ischemia was unable to be excluded. In the emergency department, the patient was noted to be unresponsive to voice and pain. Accordingly, the patient was intubated and a central venous catheter was placed via ultrasound guidance. The patient was started on a spenser hugger and supplemental IV fluids. He was then admitted to the medical intensive care unit for further management. This morning, the patient was noted to be alert and appropriately interactive. He was able to follow commands. The patient did pass his spontaneous breathing trial and was therefore extubated to nasal cannula supplemental oxygen, under my direct supervision. Past Medical History Past Medical History (Chronic Problems): Chronic Problems History of left heart catheterization (Chronic 07/23/19) Segmented LV systolic dysfunction- Moderate LVEF: by LV gram 50 % Depressed Left Ventricular systolic function - Mild Triple vessel CAD of the LM, LAD, LCX, RCA Widely patent FULLER To LAD; Widely patent SVG to OM; Occluded SVG to RCA (old) Widely patent stents x 3 to proximal, mid and distal RCA. 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) Peripheral vascular disease (Chronic) Diabetic foot ulcer (Chronic) Peripheral neuropathy (Chronic) Obesity (Chronic) History of pulmonary embolism (Chronic) Hypertension (Chronic) Hyperlipidemia (Chronic) History of CVA (cerebrovascular accident) (Chronic) CKD (chronic kidney disease) stage 3, GFR 30-59 ml/min (Chronic) Ulcer of right foot with necrosis of bone (Chronic) Osteomyelitis (Chronic) Ulcer of right foot with fat layer exposed (Chronic) GERD (gastroesophageal reflux disease) (Chronic) Coronary artery disease involving [place] coronary artery of [place] heart (Chronic) Gout (Chronic) Lumbosacral stenosis (Chronic) Lumbosacral radiculopathy (Chronic) PAD (peripheral artery disease) (Chronic) Diabetes mellitus type II, controlled (Chronic) Allergies allopurinol Adverse Reaction (Verified 07/16/19 11:02) Other exenatide [From Byetta] Adverse Reaction (Verified 07/16/19 11:02) Other insulin aspart [From Novolog] Adverse Reaction (Verified 07/16/19 11:02) Other insulin glargine, human recombin. a [From Lantus] Adverse Reaction (Verified 07/16/19 11:02) Other morphine Adverse Reaction (Verified 07/16/19 11:02) Other DOES NOT HELP PAIN, MAKES ME FEEL OUT OF IT Khcfyzd-Gyc-Bzh Reductase Inhibitor Adverse Reaction (Verified 07/16/19 11:02) Other Home Medications: Ambulatory Orders Medication Instructions Recorded Alirocumab [Praluent Pen] 75 mg SQ UD 08/01/19 Clopidogrel Bisulfate [Plavix] 75 mg PO DAILY 08/01/19 Furosemide [Lasix] 80 mg PO DAILY 08/01/19 Glipizide 10 mg PO BID 08/01/19 Metoprolol Tartrate 25 mg PO 199908/01/19 Metoprolol Tartrate [Lopressor 50 mg PO 0808/01/19 (Beta Deborah)] Pantoprazole Sodium [Protonix] 20 mg PO DAILY 08/01/19 Probenecid 500 mg PO BID 08/01/19 Timolol 0.5% [Timoptic] 1 drp EACH EYE BID 08/01/19 traMADol [Ultram (G)] 50 mg PO Q6H PRN PRN 08/01/19 Aspirin [Adult Aspirin Regimen] 81 mg PO DAILY 08/02/19 Chromium Picolinate 5 gm MC DAILY 08/02/19 Ezetimibe [Zetia] 10 mg PO DAILY 08/02/19 Surgical History: angioplasty, cholecystectomy, coronary bypass surgery, total knee arthroplasty, tonsillectomy, - - Vein stripping, rectal fistula repair, ORIF fractured leg, bilateral cataract extraction Lives: Residential Smoking Status: Former smoker Alcohol: None Drugs: None - *Family History Paternal History Items: - - The patient's father at age of 69 with a history of coronary artery disease and diabetes mellitus. The patient's mother lived to be 95 years of age, and passed of old age. Review of Systems Unable to obtain accurate/complete ROS d/t: Due to current intubation and mechanical ventilation status. Patient Problems: Active and Suspected Problems Airway intubation performed without difficulty (Acute) Encounter for central line placement (Acute) Unresponsive (Acute) Respiratory failure (Acute) Hypothermia (Acute) - Physical Exam Vitals/I&O's: Vital Signs Temp Pulse Resp BP Pulse Ox 99 F 66 18 100/60 100 08/02/19 06:00 08/02/19 06:00 08/02/19 06:00 08/02/19 06:00 08/02/19 06:00 Oxygen Flow Rate (L/min) 15 Oxygen Delivery Method Mechanical Ventilator Weight: 257 lb 15.053 oz Body Mass Index (BMI) 37.4 Finger Stick Blood Glucose 159 Intake and Output for Last 24 Hours 07/31/19 08/01/19 08/02/19 23:59 23:59 23:59 Intake Total 3477.70 / 3483.65 118.85 / 118.85 Output Total 1925 / 192 450 / 450 Balance 1552.70 / 1558.65 -331.15 / -331.15 General: - - Intubated and mechanically ventilated. Currently tolerating spontaneous mode of mechanical ventilation. HEENT: Atraumatic, PERRLA, Normocephalic Oral: No Gingival or Mucosal Lesions/ Ulcerations, - - Endotracheal and OG tubes are currently in place. Neck: Supple, No Nodes, Trachea Midline, - - Stable appearing central venous catheter Lungs: No rhonchi, No wheeze, No rales, Diminished Cardiovascular: Regular rate, Regular Rhythm, Normal S1, Normal S2 Abdomen: Bowel Sounds Present, Soft, Non Tender, Obese Extremities: No clubbing, No cyanosis Skin: - - Wrapped lower extremities Musculoskeletal: No Muscle Wasting Lymphatic: No Cervical, Supraclavicular, or Inguinal Adenopathy Neurological: - - No focal neurological deficits. Currently alert and able to follow commands. Labs (Last 48 Hours) 08/01/19 08/01/19 08/01/19 09:57 10:09 10:09 WBC 6.4 RBC 3.71 L Hgb 10.8 L Hct 34.6 L MCV 93.3 MCH 29.1 MCHC 31.2 L RDW Std Deviation 52.2 H RDW Coeff of Suraj 15.2 H Plt Count 326 MPV 9.8 Immature Gran % (Auto) 0.800 Neut % (Auto) 59.8 Lymph % (Auto) 26.6 Alcorn % (Auto) 10.3 H Eos % (Auto) 1.9 Baso % (Auto) 0.6 Absolute Neuts (auto) 3.9 Absolute Lymphs (auto) 1.71 Nucleated RBC % 0 PT 16.8 H INR 1.4 APTT 32.1 Specimen Type Sample Site pH Bicarbonate Actual POC Total CO2 Base Excess O2 Saturation O2 % ABG pCO2 ABG pO2 Respiration Rate O2 Delivery Device Vent Mode Tidal Volume POC PEEP Blood Gas Notified Whom Blood Gas Notified Time Sodium Potassium Chloride Carbon Dioxide Anion Gap BUN Creatinine Estim Creat Clear Calc Est GFR (MDRD) Af Amer Est GFR (MDRD) Non-Af BUN/Creatinine Ratio Glucose Lactic Acid Calcium Total Bilirubin Direct Bilirubin AST ALT Alkaline Phosphatase Total Creatine Kinase Troponin I B-Natriuretic Peptide Total Protein Albumin Globulin Albumin/Globulin Ratio Triglycerides Lipase Urine Color Urine Clarity Urine pH Ur Specific [place] Urine Protein Urine Glucose (UA) Urine Ketones Urine Occult Blood Urine Nitrite Urine Bilirubin Urine Urobilinogen Ur Leukocyte Esterase Urine RBC Urine WBC Ur Squamous Epith Cells Urine Bacteria Urine Mucus POC Glucose 91 08/01/19 08/01/19 08/01/19 10:09 10:09 10:22 WBC RBC Hgb Hct MCV MCH MCHC RDW Std Deviation RDW Coeff of Suraj Plt Count MPV Immature Gran % (Auto) Neut % (Auto) Lymph % (Auto) [place] % (Auto) Eos % (Auto) Baso % (Auto) Absolute Neuts (auto) Absolute Lymphs (auto) Nucleated RBC % PT INR APTT Specimen Type Sample Site pH Bicarbonate Actual POC Total CO2 Base Excess O2 Saturation O2 % ABG pCO2 ABG pO2 Respiration Rate O2 Delivery Device Vent Mode Tidal Volume POC PEEP Blood Gas Notified Whom Blood Gas Notified Time Sodium 140 Potassium 4.1 Chloride 108 H Carbon Dioxide 26.0 Anion Gap 6 BUN 52 H Creatinine 1.83 H Estim Creat Clear Calc 33.24 Est GFR (MDRD) Af Amer 46 L Est GFR (MDRD) Non-Af 38 L BUN/Creatinine Ratio 28.4 H Glucose 105 Lactic Acid Calcium 8.5 Total Bilirubin 0.20 Direct Bilirubin 0.14 AST 28 ALT 21 Alkaline Phosphatase 173 H Total Creatine Kinase Troponin I < 0.015 B-Natriuretic Peptide 163.4 H Total Protein 7.1 Albumin 2.3 L Globulin 4.8 H Albumin/Globulin Ratio Triglycerides Lipase 543 H Urine Color Urine Clarity Urine pH Ur Specific [place] Urine Protein Urine Glucose (UA) Urine Ketones Urine Occult Blood Urine Nitrite Urine Bilirubin Urine Urobilinogen Ur Leukocyte Esterase Urine RBC Urine WBC Ur Squamous Epith Cells Urine Bacteria Urine Mucus POC Glucose 89 08/01/19 08/01/19 08/01/19 10:42 10:42 11:09 WBC RBC Hgb Hct MCV MCH MCHC RDW Std Deviation RDW Coeff of Suraj Plt Count MPV Immature Gran % (Auto) Neut % (Auto) Lymph % (Auto) [place] % (Auto) Eos % (Auto) Baso % (Auto) Absolute Neuts (auto) Absolute Lymphs (auto) Nucleated RBC % PT INR APTT Specimen Type KATHARINE Sample Site R Brachial pH 7.28 L Bicarbonate Actual 22.8 POC Total CO2 24 Base Excess -4 L O2 Saturation 44 L O2 % 45 ABG pCO2 48.8 H ABG pO2 28 L* Respiration Rate 12 O2 Delivery Device Vent Vent Mode A-C Tidal Volume 500 POC PEEP 5 Blood Gas Notified Whom ED Blood Gas Notified Time 1106 Sodium Potassium Chloride Carbon Dioxide Anion Gap BUN Creatinine Estim Creat Clear Calc Est GFR (MDRD) Af Amer Est GFR (MDRD) Non-Af BUN/Creatinine Ratio Glucose Lactic Acid 2.1 H* Calcium Total Bilirubin Direct Bilirubin AST ALT Alkaline Phosphatase Total Creatine Kinase Troponin I B-Natriuretic Peptide Total Protein Albumin Globulin Albumin/Globulin Ratio Triglycerides Lipase Urine Color Yellow Urine Clarity Clear Urine pH 6.0 Ur Specific [place] 1.015 Urine Protein Negative Urine Glucose (UA) Normal Urine Ketones Negative Urine Occult Blood Negative Urine Nitrite Negative Urine Bilirubin Negative Urine Urobilinogen Normal Ur Leukocyte Esterase Negative Urine RBC 0 SEEN Urine WBC 0 SEEN Ur Squamous Epith Cells 0 SEEN Urine Bacteria 0 SEEN Urine Mucus 0 SEEN POC Glucose 08/01/19 08/01/19 08/01/19 12:07 12:51 14:45 WBC RBC Hgb Hct MCV MCH MCHC RDW Std Deviation RDW Coeff of Suraj Plt Count MPV Immature Gran % (Auto) Neut % (Auto) Lymph % (Auto) [place] % (Auto) Eos % (Auto) Baso % (Auto) Absolute Neuts (auto) Absolute Lymphs (auto) Nucleated RBC % PT INR APTT Specimen Type Sample Site pH Bicarbonate Actual POC Total CO2 Base Excess O2 Saturation O2 % ABG pCO2 ABG pO2 Respiration Rate O2 Delivery Device Vent Mode Tidal Volume POC PEEP Blood Gas Notified Whom Blood Gas Notified Time Sodium Potassium Chloride Carbon Dioxide Anion Gap BUN Creatinine Estim Creat Clear Calc Est GFR (MDRD) Af Amer Est GFR (MDRD) Non-Af BUN/Creatinine Ratio Glucose Lactic Acid Calcium Total Bilirubin Direct Bilirubin AST ALT Alkaline Phosphatase Total Creatine Kinase Troponin I B-Natriuretic Peptide Total Protein Albumin Globulin Albumin/Globulin Ratio Triglycerides Lipase Urine Color Urine Clarity Urine pH Ur Specific [place] Urine Protein Urine Glucose (UA) Urine Ketones Urine Occult Blood Urine Nitrite Urine Bilirubin Urine Urobilinogen Ur Leukocyte Esterase Urine RBC Urine WBC Ur Squamous Epith Cells Urine Bacteria Urine Mucus POC Glucose 65 L 159 H 133 H 08/01/19 08/01/19 08/01/19 15:20 15:20 17:32 WBC RBC Hgb Hct MCV MCH MCHC RDW Std Deviation RDW Coeff of Suraj Plt Count MPV Immature Gran % (Auto) Neut % (Auto) Lymph % (Auto) [place] % (Auto) Eos % (Auto) Baso % (Auto) Absolute Neuts (auto) Absolute Lymphs (auto) Nucleated RBC % PT 20.7 H INR 1.8 APTT Specimen Type Sample Site pH Bicarbonate Actual POC Total CO2 Base Excess O2 Saturation O2 % ABG pCO2 ABG pO2 Respiration Rate O2 Delivery Device Vent Mode Tidal Volume POC PEEP Blood Gas Notified Whom Blood Gas Notified Time Sodium Potassium Chloride Carbon Dioxide Anion Gap BUN Creatinine Estim Creat Clear Calc Est GFR (MDRD) Af Amer Est GFR (MDRD) Non-Af BUN/Creatinine Ratio Glucose Lactic Acid 1.6 Calcium Total Bilirubin Direct Bilirubin AST ALT Alkaline Phosphatase Total Creatine Kinase Troponin I B-Natriuretic Peptide Total Protein Albumin Globulin Albumin/Globulin Ratio Triglycerides Lipase Urine Color Urine Clarity Urine pH Ur Specific [place] Urine Protein Urine Glucose (UA) Urine Ketones Urine Occult Blood Urine Nitrite Urine Bilirubin Urine Urobilinogen Ur Leukocyte Esterase Urine RBC Urine WBC Ur Squamous Epith Cells Urine Bacteria Urine Mucus POC Glucose 208 H 08/01/19 08/02/19 08/02/19 21:49 01:52 05:40 WBC RBC Hgb Hct MCV MCH MCHC RDW Std Deviation RDW Coeff of Suraj Plt Count MPV Immature Gran % (Auto) Neut % (Auto) Lymph % (Auto) [place] % (Auto) Eos % (Auto) Baso % (Auto) Absolute Neuts (auto) Absolute Lymphs (auto) Nucleated RBC % PT INR APTT Specimen Type Sample Site pH Bicarbonate Actual POC Total CO2 Base Excess O2 Saturation O2 % ABG pCO2 ABG pO2 Respiration Rate O2 Delivery Device Vent Mode Tidal Volume POC PEEP Blood Gas Notified Whom Blood Gas Notified Time Sodium Potassium Chloride Carbon Dioxide Anion Gap BUN Creatinine Estim Creat Clear Calc Est GFR (MDRD) Af Amer Est GFR (MDRD) Non-Af BUN/Creatinine Ratio Glucose Lactic Acid Calcium Total Bilirubin Direct Bilirubin AST ALT Alkaline Phosphatase Total Creatine Kinase Troponin I B-Natriuretic Peptide Total Protein Albumin Globulin Albumin/Globulin Ratio Triglycerides Lipase Urine Color Urine Clarity Urine pH Ur Specific [place] Urine Protein Urine Glucose (UA) Urine Ketones Urine Occult Blood Urine Nitrite Urine Bilirubin Urine Urobilinogen Ur Leukocyte Esterase Urine RBC Urine WBC Ur Squamous Epith Cells Urine Bacteria Urine Mucus POC Glucose 187 H 158 H 129 H 08/02/19 08/02/19 05:45 05:45 WBC 7.3 RBC 3.28 L Hgb 9.4 L Hct 30.3 L MCV 92.4 MCH 28.7 MCHC 31.0 L RDW Std Deviation 50.4 H RDW Coeff of Suraj 15.0 H Plt Count 272 MPV 9.7 Immature Gran % (Auto) 0.400 Neut % (Auto) 75.9 H Lymph % (Auto) 13.9 L [place] % (Auto) 8.7 Eos % (Auto) 0.8 Baso % (Auto) 0.3 Absolute Neuts (auto) 5.5 Absolute Lymphs (auto) 1.01 Nucleated RBC % 0 PT INR APTT Specimen Type Sample Site pH Bicarbonate Actual POC Total CO2 Base Excess O2 Saturation O2 % ABG pCO2 ABG pO2 Respiration Rate O2 Delivery Device Vent Mode Tidal Volume POC PEEP Blood Gas Notified Whom Blood Gas Notified Time Sodium 140 Potassium 3.9 Chloride 110 H Carbon Dioxide 25.0 Anion Gap 5 BUN 41 H Creatinine 1.56 H Estim Creat Clear Calc 39.00 Est GFR (MDRD) Af Amer 55 L Est GFR (MDRD) Non-Af 46 L BUN/Creatinine Ratio 26.3 H Glucose 127 H Lactic Acid Calcium 8.0 L Total Bilirubin 0.40 Direct Bilirubin AST 31 ALT 18 Alkaline Phosphatase 155 H Total Creatine Kinase 423 H Troponin I B-Natriuretic Peptide Total Protein 6.0 L Albumin 2.0 L Globulin 4.0 Albumin/Globulin Ratio 0.5 L Triglycerides 61 Lipase 935 H Urine Color Urine Clarity Urine pH Ur Specific [place] Urine Protein Urine Glucose (UA) Urine Ketones Urine Occult Blood Urine Nitrite Urine Bilirubin Urine Urobilinogen Ur Leukocyte Esterase Urine RBC Urine WBC Ur Squamous Epith Cells Urine Bacteria Urine Mucus POC Glucose Clinical Impression(s) from Imaging Studies Brain CT 08/01/19 10:19 IMPRESSION: 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 Age indeterminate hypodensity in the left centrum semiovale white matter. Acute ischemia is hard to exclude. MRI can be obtained for further evaluation. Bilateral ethmoid sinus disease. N.B. : The above information has been verbally conveyed by Wade Mendez to Wade Williamson MD, MD, on 08/01/2019 11:56:29 (ET). Electronically Signed: Wade Mendez, at 11:42 EST Tel , Service support , Current Medications Chlorhexidine Gluconate () 1 each TOPICAL DAILY CAMILO Chlorhexidine Gluconate () 15 ml PO BID CAMILO Last Admin: 08/01/19 21:44 Dose: 15 ml Documented by: Glucagon () 1 mg IM .X1 PRN PRN Reason: Hypoglycemia Heparin Sodium (Porcine) (Heparin Na) 5,000 unit SC Q8 [facility] Last Admin: 08/02/19 05:43 Dose: 5,000 unit Documented by: Norepinephrine Bitartrate 8 mg (/ Sodium Chloride) 250 mls @ 9.375 mls/hr CONT INF .[id number] [facility]; Protocol Last Titration: 08/02/19 06:00 Dose: 0 mcg/min, 0 mls/hr Documented by: Famotidine 20 mg/ Sodium (Chloride) 10 mls @ 300 mls/hr IV DAILY [facility] Last Infusion: 08/01/19 15:07 Dose: Infused Documented by: Propofol (Diprivan) 1,000 mg in 100 mls @ 7.116 mls/hr CONT INF .Q12H [facility]; Protocol Last Titration: 08/02/19 06:00 Dose: 0 mcg/kg/min, 0 mls/hr Documented by: Fentanyl () 100 mls @ 2.5 mls/hr IV UD [facility]; Protocol Last Titration: 08/02/19 06:00 Dose: 50 mcg/hr, 5 mls/hr Documented by: Dextrose/Sodium Chloride () 1,000 mls @ 80 mls/hr IV .[id number] [facility] Last Infusion: 08/01/19 23:00 Dose: 80 mls/hr Documented by: Insulin Human Lispro (Humalog Kwikpen (Bkc)) 0 unit SC Q4 [facility]; Protocol Last Admin: 08/02/19 05:43 Dose: Not Given Documented by: Ondansetron HCl (Zofran) 4 mg IV Q8H PRN PRN PRN Reason: NAUSEA/VOMITING Sodium Chloride () 10 - 40 ml IV UD PRN PRN Reason: Multilumen/Nava Flush Sodium Chloride (0.9% Nacl (Sterile) Posiflush) 10 - 40 ml IV UD PRN PRN Reason: Port access or dressing change Assessment/Plan Active and Suspected Problems Airway intubation performed without difficulty (Acute) Encounter for central line placement (Acute) Unresponsive (Acute) Respiratory failure (Acute) Hypothermia (Acute) RECOMMENDATIONS: 1. Proceed with a trial of extubation this morning. 2. Once extubated, wean supplemental oxygen to maintain saturations at or above 90%. 3. Perform swallow evaluation prior to advancing diet. 4. Depending on neurological status, consideration can be given to obtaining MRI, given findings noted on CT. 5. Obtain repeat chest x-ray. If evolving infiltrate is noted, will start antimicrobials. 6. Start Pap therapy with naps and nightly, per home regimen. IMPRESSIONS: 1. Acute hypoxemic respiratory failure The patient was initially intubated in the emergency department due to encephalopathy. We will plan to proceed with a trial of extubation this morning. I would recommend that at some point we obtain a repeat plain film chest x-ray to see if any further infiltrate has developed in the setting of volume resuscitation. If so, antimicrobials can be initiated. Plan to wean supplemental oxygen to maintain saturations at or above 90%. Encourage incentive spirometer use and mobilize patient as tolerated. 2. Encephalopathy Etiology unclear, however, the patient's depressed mental state was initially felt to be secondary to his hypoglycemia. He does have a history of CVA, per family. I would recommend that we reassess his neurological state once extubated this morning. If he demonstrates any neurological deficits, will obtain MRI brain, given findings noted on CT head on presentation. Avoid sedating medications. 3. Acute on chronic kidney disease Likely prerenal in etiology. The patient has received supplemental IV fluid hydration with subsequent improvement in his creatinine. We will continue to monitor urine output. No indication for renal replacement therapy at this time. 4. Recent left foot MSSA osteomyelitis, requiring surgical intervention The patient apparently completed his treatment course of p.o. doxycycline as recommended by infectious diseases during his last hospitalization. 5. Obstructive sleep apnea Recommend initiation of nocturnal Pap therapy with naps and nightly. 6. History of coronary artery disease/atrial flutter/fibrillation/peripheral vascular disease/history of pulmonary embolism Complicates care, management, recovery and prognosis. Eliquis will be held with therapeutic Lovenox utilized in its place. TIME: 40 minutes of critical care time, independent of procedures, was spent addressing the patient's acute hypoxemic respiratory failure, encephalopathy, acute on chronic kidney disease, elevated lipase, review of all data and collaboration with the care team. ([id number]) Code Visit 9xxxx: [id number] Critical care first hour
--- NOTE | 2019-08-02 06:51 | US_ITS ---
STUDY: ABDOMINAL ULTRASOUND - RIGHT UPPER QUADRANT REASON FOR VISIT: Male, 79 years old ELEVATED LIPASE -- POSSIBLE PANCREATITIS -- S/P PREVIOUS CHOLECYSTECTOMY PER NURSE TECHNIQUE: Ultrasound evaluation of the right upper quadrant was performed with real-time and static carter-scale imaging. TECHNICAL QUALITY: Adequate. COMPARISON: Comparison is made with prior ultrasound of gallbladder dated November 23, 2008. FINDINGS: Liver: The liver measures 16 cm. There is increased echogenicity consistent with fatty infiltration. The bile ducts are within normal limits. There is hepatic color flow. The direction of portal flow is hepatopetal. There is no demonstrated mass lesion. Gallbladder: The patient is status post cholecystectomy. Common Bile Duct (C.B.D.): The common bile duct measures 3.0 mm. Pancreas: Normal size of the head, body and tail of the pancreas. There is increased echogenicity of the pancreas. There is no demonstrated pancreatic mass or cyst. Right Kidney: Normal size of the right kidney. The right kidney measures 12.7 cm x 5.2 cm x 5.0 cm. Normal renal cortex. The right cortex measures 1.1 cm. There is no demonstrated renal mass or cyst. There is no right hydronephrosis. US/Liver IMPRESSION: Fatty infiltration of the liver. Electronically Signed: Wayne Wang, at 9:00 EST , Service support ,
[2019-08-02 07:22] LABS: GGTP 55 U/L (15-85)
--- NOTE | 2019-08-02 07:44 | PCM.PN.HOSP ---
Patient Problems: Active and Suspected Problems Airway intubation performed without difficulty (Acute) Encounter for central line placement (Acute) Unresponsive (Acute) Respiratory failure (Acute) Hypothermia (Acute) Reason for Visit: Follow-up acute hypoxic respiratory failure, hypotension, hypothermia and altered mental status Subjective: Patient is an 79-year-old lady resident of an [facility] brought seen with decreased level of sensorium intubated in the ED and admitted to the intensive care unit. Objective: GENERAL: Lethargic but easily arousable HEENT: Atraumatic; EYES; Anicteric, Normal Conjunctiva NECK; supple, normal thyroid, RESPIRATORY: Diminished to auscultation CARDIOVASCULAR: Irregular S1-S2 GI: soft, normoactive bowel sounds, : No Renal angle tenderness; EXTREMITIES: No edema, no clubbing, MUSCULOSKELETAL: no muscle waisting NEURO: Lethargic but easily arousable SKIN: No Rash PSYCH; lethargic unable to properly assess Vitals/I&O's: Vital Signs Temp Pulse Resp BP Pulse Ox 99.2 F H 65 18 113/58 L 98 08/02/19 07:00 08/02/19 07:00 08/02/19 07:00 08/02/19 07:00 08/02/19 07:00 Oxygen Flow Rate (L/min) 2 Oxygen Delivery Method Nasal Cannula Weight: 117 kg Body Mass Index (BMI) 37.4 Finger Stick Blood Glucose 159 Intake and Output for Last 24 Hours 07/31/19 08/01/19 08/02/19 23:59 23:59 23:59 Intake Total 3477.70 / 3483.65 601.35 / 601.35 Output Total 1925 / 1925 450 / 450 Balance 1552.70 / 1558.65 151.35 / 151.35 Laboratory Results 08/01/19 09:57: POC Glucose 91 08/01/19 10:09: WBC 6.4, RBC 3.71 L, Hgb 10.8 L, Hct 34.6 L, MCV 93.3, MCH 29.1, MCHC 31.2 L, RDW Std Deviation 52.2 H, RDW Coeff of Suraj 15.2 H, Plt Count 326, MPV 9.8, Immature Gran % (Auto) 0.800, Neut % (Auto) 59.8, Lymph % (Auto) 26.6, [place] % (Auto) 10.3 H, Eos % (Auto) 1.9, Baso % (Auto) 0.6, Absolute Neuts (auto) 3.9, Absolute Lymphs (auto) 1.71, Nucleated RBC % 0 08/01/19 10:09: PT 16.8 H, INR 1.4, APTT 32.1 08/01/19 10:09: Sodium 140, Potassium 4.1, Chloride 108 H, Carbon Dioxide 26.0, Anion Gap 6, BUN 52 H, Creatinine 1.83 H, Estim Creat Clear Calc 33.24, Est GFR (MDRD) Af Amer 46 L, Est GFR (MDRD) Non-Af 38 L, BUN/Creatinine Ratio 28.4 H, Glucose 105, Calcium 8.5, Total Bilirubin 0.20, Direct Bilirubin 0.14, AST 28, ALT 21, Alkaline Phosphatase 173 H, Troponin I < 0.015, Total Protein 7.1, Albumin 2.3 L, Globulin 4.8 H, Lipase 543 H 08/01/19 10:09: B-Natriuretic Peptide 163.4 H 08/01/19 10:22: POC Glucose 89 08/01/19 10:42: Lactic Acid 2.1 H* 08/01/19 10:42: Urine Color Yellow, Urine Clarity Clear, Urine pH 6.0, Ur Specific [place] 1.015, Urine Protein Negative, Urine Glucose (UA) Normal, Urine Ketones Negative, Urine Occult Blood Negative, Urine Nitrite Negative, Urine Bilirubin Negative, Urine Urobilinogen Normal, Ur Leukocyte Esterase Negative, Urine RBC 0 SEEN, Urine WBC 0 SEEN, Ur Squamous Epith Cells 0 SEEN, Urine Bacteria 0 SEEN, Urine Mucus 0 SEEN 08/01/19 11:09: Specimen Type KATHARINE, Sample Site R Brachial, pH 7.28 L, Bicarbonate Actual 22.8, POC Total CO2 24, Base Excess -4 L, O2 Saturation 44 L, O2 % 45, ABG pCO2 48.8 H, ABG pO2 28 L*, Respiration Rate 12, O2 Delivery Device Vent, Vent Mode A-C, Tidal Volume 500, POC PEEP 5, Blood Gas Notified Whom ED , Blood Gas Notified Time 1106 08/01/19 12:07: POC Glucose 65 L 08/01/19 12:51: POC Glucose 159 H 08/01/19 14:45: POC Glucose 133 H 08/01/19 15:20: PT 20.7 H, INR 1.8 08/01/19 15:20: Lactic Acid 1.6 08/01/19 17:32: POC Glucose 208 H 08/01/19 21:49: POC Glucose 187 H 08/02/19 01:52: POC Glucose 158 H 08/02/19 05:40: POC Glucose 129 H 08/02/19 05:45: WBC 7.3, RBC 3.28 L, Hgb 9.4 L, Hct 30.3 L, MCV 92.4, MCH 28.7, MCHC 31.0 L, RDW Std Deviation 50.4 H, RDW Coeff of Suraj 15.0 H, Plt Count 272, MPV 9.7, Immature Gran % (Auto) 0.400, Neut % (Auto) 75.9 H, Lymph % (Auto) 13.9 L, [place] % (Auto) 8.7, Eos % (Auto) 0.8, Baso % (Auto) 0.3, Absolute Neuts (auto) 5.5, Absolute Lymphs (auto) 1.01, Nucleated RBC % 0 08/02/19 05:45: Sodium 140, Potassium 3.9, Chloride 110 H, Carbon Dioxide 25.0, Anion Gap 5, BUN 41 H, Creatinine 1.56 H, Estim Creat Clear Calc 39.00, Est GFR (MDRD) Af Amer 55 L, Est GFR (MDRD) Non-Af 46 L, BUN/Creatinine Ratio 26.3 H, Glucose 127 H, Calcium 8.0 L, Total Bilirubin 0.40, AST 31, ALT 18, Alkaline Phosphatase 155 H, Total Creatine Kinase 423 H, Total Protein 6.0 L, Albumin 2.0 L, Globulin 4.0, Albumin/Globulin Ratio 0.5 L, Triglycerides 61, Lipase 935 H 08/02/19 05:45: GGT 55 Current Medications Chlorhexidine Gluconate () 1 each TOPICAL DAILY [facility] Chlorhexidine Gluconate () 15 ml PO BID [facility] Last Admin: 08/01/19 21:44 Dose: 15 ml Documented by: Glucagon () 1 mg IM .X1 PRN PRN Reason: Hypoglycemia Heparin Sodium (Porcine) (Heparin Na) 5,000 unit SC Q8 [facility] Last Admin: 08/02/19 05:43 Dose: 5,000 unit Documented by: Famotidine 20 mg/ Sodium (Chloride) 10 mls @ 300 mls/hr IV DAILY [facility] Last Infusion: 08/01/19 15:07 Dose: Infused Documented by: Dextrose/Sodium Chloride () 1,000 mls @ 80 mls/hr IV .[id number] [facility] Last Infusion: 08/02/19 05:00 Dose: 80 mls/hr Documented by: Insulin Human Lispro (Humalog Kwikpen (Bkc)) 0 unit SC Q4 [facility]; Protocol Last Admin: 08/02/19 05:43 Dose: Not Given Documented by: Ondansetron HCl (Zofran) 4 mg IV Q8H PRN PRN PRN Reason: NAUSEA/VOMITING Sodium Chloride () 10 - 40 ml IV UD PRN PRN Reason: Multilumen/Nava Flush Sodium Chloride (0.9% Nacl (Sterile) Posiflush) 10 - 40 ml IV UD PRN PRN Reason: Port access or dressing change STROKE Vital Signs/Narrative: Vital Signs Temp Pulse Resp BP Pulse Ox 08/02/19 07:00 99.2 F H 65 18 113/58 L 98 08/02/19 06:00 99 F 66 18 100/60 100 08/02/19 05:05 67 14 94 08/02/19 05:00 98.9 F 65 17 106/56 L 98 08/02/19 04:00 98.5 F 66 14 92/54 L 99 08/02/19 03:50 67 19 H 100 08/02/19 03:45 67 87/67 L Medical Necessity - Tobacco Use Smoking Status: Former smoker Assessment/Plan All Active Problems Airway intubation performed without difficulty (Acute) Encounter for central line placement (Acute) Unresponsive (Acute) Respiratory failure (Acute) Hypothermia (Acute) Patient is an 79-year-old lady resident of an [facility] brought seen with decreased level of sensorium intubated in the ED and admitted to the intensive care unit. 1. Acute encephalopathy ?Of undetermined etiology. CT of the head obtained in the emergency department could not exclude acute CVA MRI has subsequently been ordered for further evaluation after discussion with Dr. Alfaro 2. Acute hypoxic respiratory failure ?Patient was intubated in the ED prior to his admission weaned off the vent on the morning of 08/02/2019. 3. Suspected sepsis from infected left foot cellulitis with left big toe osteomyelitis ? Patient with hypotension as well as hypothermia. Lactic acid was 3.1. Patient had recently completed antibiotic therapy. Patient was resuscitated with aggressive IV fluids repeat lactic acid level back to 1.6. 4. Diabetes mellitus type II ~Complications including diabetic nephropathy, patient's oral hypoglycemics held. Placed on Accu-Cheks a.c. and at bedtime and covered with sliding scale insulin 5. Recent admission with left foot cellulitis as well as left big toe osteomyelitis Patient was treated with cefazolin infectious disease recommended p.o. doxycycline for 2 to 4 weeks following discharge 6. Chronic kidney disease stage III Secondary to diabetic nephropathy. Patient kidney function close to baseline 7. Coronary artery disease ?With previous CABG and stent placement. Stent placement.catheterization performed on 07/23/2019 demonstrated patent grafts except for an occluded SVG to RCA which was apparently old. 8. Paroxysmal atrial fibrillation/flutter ?Patient was started on amiodarone on discharge resumed on admission 9. History of pulmonary embolism ?Patient is on Eliquis held on admission managed with therapeutic Lovenox 10. Peripheral vascular disease ?Patient had a recent ELOY which demonstrated bilateral moderately severe atrial occlusive disease. Patient was apparently scheduled to follow-up with Dr. Alfaro for angiogram 11. GERD - PPI 12. Dyslipidemia ?patient is on Zetia resume 13. Essential hypertension ?Patient antihypertensive regimen placed on hold in view of patient presented with hypotension 10. DVT prophylaxis ?Patient is on systemic anticoagulation Active Medications Chlorhexidine Gluconate () 1 each TOPICAL DAILY [facility] Chlorhexidine Gluconate () 15 ml PO BID [facility] Last Admin: 08/01/19 21:44 Dose: 15 ml Documented by: Enoxaparin Sodium (Lovenox) 120 mg SC BID [facility] Glucagon () 1 mg IM .X1 PRN PRN Reason: Hypoglycemia Famotidine 20 mg/ Sodium (Chloride) 10 mls @ 300 mls/hr IV DAILY [facility] Last Infusion: 08/01/19 15:07 Dose: Infused Documented by: Dextrose/Sodium Chloride () 1,000 mls @ 80 mls/hr IV .[id number] [facility] Last Infusion: 08/02/19 05:00 Dose: 80 mls/hr Documented by: Insulin Human Lispro (Humalog Kwikpen (Bkc)) 0 unit SC Q4 [facility]; Protocol Last Admin: 08/02/19 05:43 Dose: Not Given Documented by: Ondansetron HCl (Zofran) 4 mg IV Q8H PRN PRN PRN Reason: NAUSEA/VOMITING Sodium Chloride () 10 - 40 ml IV UD PRN PRN Reason: Multilumen/Nava Flush Sodium Chloride (0.9% Nacl (Sterile) Posiflush) 10 - 40 ml IV UD PRN PRN Reason: Port access or dressing change Clinical Impression(s) from Imaging Studies Brain CT 08/01/19 10:19 IMPRESSION: 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 Age indeterminate hypodensity in the left centrum semiovale white matter. Acute ischemia is hard to exclude. MRI can be obtained for further evaluation. Bilateral ethmoid sinus disease. N.B. : The above information has been verbally conveyed by Wade Mendez to Wade Williamson MD , , on 08/01/2019 11:56:29 (ET). Electronically Signed: Wade Mendez, at 11:42 EST Tel , Service support , Chest X-Ray 08/01/19 10:20 IMPRESSION: Tubes and lines as described. Questionable small effusion and airspace disease at the right lung base. Electronically Signed: Wade Mendez, at 11:35 EST Tel , Service support , Liver Ultrasound 08/02/19 06:51 IMPRESSION: Fatty infiltration of the liver. Electronically Signed: Wayne Wang, at 9:00 EST , Service support , Code Visit Inpatient E&M: 14247 Subs Hosp L3
--- NOTE | 2019-08-02 10:05 | MRI_ITS ---
STUDY: MRI BRAIN WITHOUT CONTRAST REASON FOR EXAM: Male, 79 years old. 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 COMPARISON: CT of the brain dated August 01, 2019 FINDINGS: There is mild cerebral atrophy with widening of the extra-axial spaces and ventricular dilatation. There are a limited number of small white matter hyperintensities, distributed throughout the deep white matter tracts of the cerebral hemispheres, consistent with mild chronic white matter ischemic changes. There is no evidence for recent intracranial ischemia or other cause of cytotoxic edema on diffusion weighted imaging (DWI). Normal bilateral basal ganglia. Normal thalami. There is no extra-axial fluid accumulation. Preserved flow voids within the major intracranial circulation suggesting patency by spin echo criteria. Normal sella turcica, pituitary gland, infundibular stalk, optic chiasm and hypothalamus. Normal tectal plate and pineal gland. There are chronic white matter ischemic changes of the lazaro. The midbrain and medulla are otherwise normal. Normal cerebellum. Normal basal cisterns. Normal bilateral temporal bones. Normal bilateral internal auditory canals. No demonstrated orbital abnormality, within the constraints of a routine brain study. Normal visualized paranasal sinuses. Normal calvarium and skull base. MRI/Brain without Contrast IMPRESSION: 1. Chronic involutional and mild chronic ischemic changes of the brain, as described above. Electronically Signed: Rafael Mckeon MD at 15:52 EST , Service support ,
--- NOTE | 2019-08-02 10:14 | CASEMGMT ---
SEVERIAN[facility] CM Readmission Note Previous Admission:07.16-07.23.2019 Diagnosos: Foot cellulitis/heart cath DC Disposition: [facility] Current Admission: 08.01.2019 DX: found unresponsive @ SNF; resp failure, ventiltor mgmt. Extubated 08.02.19 DC PLAN: return to [facility].
[2019-08-02] MEDS: Dext 5%-0.45% NS 1,000 ML 80 ML IV (10:16)
[2019-08-02] MEDS: Chlorhexidine 15 ML PO (10:17)
[2019-08-02] MEDS: Famotidine 200 MG/20 ML MDV 20 MG in 0.9% Normal Saline (Pres. free 8 ML 300 MG IV (10:31)
[2019-08-02] MEDS: CHLORHEXIDINE GLUC 2% CLOTH 1 EACH TOWELETTE TOPICAL (10:31)
[2019-08-02] MEDS: Enoxaparin 120 MG/0.8 ML Syringe SC ×2 (10:33→21:46)
[2019-08-02 10:50] LABS: Bedside Glucose 91 mg/dL (70-110)
[2019-08-02] MEDS: Haloperidol Lactate 5 MG/ML Vial 3 MG IV (12:06)
--- NOTE | 2019-08-02 12:13 | CASEMGMT ---
Patient is from [facility]. SW participated in interdisciplinary rounds and SW got the impression family may not want patient to return to [facility]. After rounds SW spoke with patient's daughter as patient is a little confused and his was talking with respiratory. She said she is not sure about the plan yet. There is some concern that he may not have been properly cared for at [facility]. Her sister is coming in from [place]. She would like for all of the family including patient to meet to discuss a plan. PITER told her to just ask for SW when they would like to meet. Chelsie MANCILLA MSW
--- NOTE | 2019-08-02 12:41 | CHAPLAIN ---
Type of Pastoral Visit _x__ Initial Visit ___ Follow-up Visit ___ On-call Visit ___ General Patient Visit ___ Spiritual Assessment ___ Family Conference ___ Bereavement ___ Rapid Response ___ Code Blue ___ Other (describe below) Pastoral Care Referral From ___ Patient _x__ Family ___ Nurse ___ Physician ___ Metal Spray Operator ___ Clinical Fellow ___ Other (describe below) Sacrament/Intervention _x__ Active listening ___ Anointing ___ Sabianist ___ Bereavement ___ Communion _x__ Prema exploration ___ ___ Life review _x__ Prayer ___ Reconciliation ___ Sacrament of Sick _x__ Supportive presence ___ Wedding ___ Other (describe below) Pastoral Comments
--- NOTE | 2019-08-02 13:25 | RAD_ITS ---
STUDY: X-RAY CHEST REASON FOR EXAM: Male, 79 years old. ACUTE RESPIRATORY FAILURE TECHNIQUE: Single AP portable view of the chest. COMPARISON: Comparison is made with prior examination dated August 01, 2019. FINDINGS: A right sided central venous catheter seen with tip in the right atrium. EKG electrodes are seen. The endotracheal tube has been removed. Minimal residual changes at the left lung base suggestive of early atelectasis and/or scarring. Blunting of the left costophrenic angle. Sternal cerclage wires and vascular clips are present from a prior sternotomy and coronary artery bypass graft procedure (CABG). Borderline cardiomegaly. Normal mediastinum and guillermina. Normal visualized pulmonary arteries. There is atherosclerotic calcification of the aortic arch with tortuosity. There are diffuse degenerative changes of the visualized thoracic spine. Normal visualized ribs, clavicles, and shoulders. There is no demonstrated abnormality of the visualized soft tissue structures of the upper abdomen. RAD/Chest 1 View (Portable) IMPRESSION: Minimal residual linear changes seen at the left lung base. Electronically Signed: Wayne Wang, at 13:43 EST , Service support ,
[2019-08-02 14:06] LABS: Bedside Glucose 72 mg/dL (70-110)
[2019-08-02] MEDS: Dextrose 10%-Water 250 ML 999 ML IV (14:55)
[2019-08-02 17:31] LABS: Bedside Glucose 113 mg/dL (70-110)
[2019-08-02] MEDS: Dext 5%-0.45% NS 1,000 ML 125 ML IV (21:45)
[2019-08-02 21:55] LABS: Bedside Glucose 221 mg/dL (70-110)
[2019-08-03] VITALS (22 sets, daily range): BP systolic 101–160; BP diastolic 61–93; PULSE 84–117; RESP 12–28; TEMP 35.8–37.3; O2SAT 90–100
--- NOTE | 2019-08-03 00:54 | NURSING ---
Pt very restless, getting agitated; persistently pulling at Bipap. Pt confused and becoming combative as staff attempts to replace pieces of Bipap tubing to mask. Pt's arms physically restricted in order to repair Bipap. Pt pulls mask apart again, staff tried to place oxygen via NC and pt very violently swings closed fist toward staff. Pt left alone and on Rm Air. Pt attempts to scoot self toward bottom of bed, but is unable to go far. Pt slowly settles down.
[2019-08-03] MEDS: Insulin Lispro 100 UNIT/ML INSULN.PEN SC ×2 (02:03→11:38)
[2019-08-03 02:11] LABS: Bedside Glucose 188 mg/dL (70-110)
--- NOTE | 2019-08-03 05:24 | NURSING ---
This RN attempted to replace p.ox ear probe, pt turned sharply and tried to bite this nurse's arm. Pt refused to allow an oxygen sensor to be placed on his hand; sensor placed to pt's Rt second toe w/assistance of another nurse. Pt physically and verbally threatening, I'll blow your friggin head off if you keep messing with me as he swings closed fists toward staff. Pt is also attempting to kick staff w/both feet. Unable to redirect pt at this time, pt physically weak enough that he cannot get out of bed on his own, but has strength w/limbs to strike staff. SR up x3, bed exit alarm on; TLC lumens placed behind pt out of reach.
[2019-08-03] MEDS: Dext 5%-0.45% NS 1,000 ML 125 ML IV (05:38)
[2019-08-03 05:46] LABS: Bedside Glucose 144 mg/dL (70-110)
--- NOTE | 2019-08-03 06:36 | PN_ITS ---
Subjective: The patient was seen and examined at the bedside this morning. Events from the last 24 hours have been reviewed. The patient is currently afebrile, hemodynamically stable and maintaining appropriate oxygen saturations on room air. The patient is much more alert this morning but has been confused and intermittently combative with nursing staff. Objective: The patient's most recent lab work, culture data and imaging studies have all been personally reviewed. Infectious work-up has been unrevealing to date. MRI brain revealed chronic involutional and mild chronic ischemic changes of the brain. General: Alert, Cooperative, Confused, Disoriented HEENT: Atraumatic, PERRLA, Normocephalic Oral: No Gingival or Mucosal Lesions/ Ulcerations Neck: Supple, No Nodes, Trachea Midline Lungs: No rhonchi, No wheeze, No rales, Diminished Cardiovascular: Normal S1, Normal S2, Irregular Rate Abdomen: Bowel Sounds Present, Soft, Non Tender, Obese Extremities: No clubbing, No cyanosis, No edema Skin: - - Wrapped left lower extremity Musculoskeletal: No Muscle Wasting Lymphatic: No Cervical, Supraclavicular, or Inguinal Adenopathy Neurological: Neuro grossly intact Psych/Mental Status: Impulsive, Restless Vital Signs Temp Pulse Resp BP Pulse Ox 97.6 F L 107 H 22 H 112/79 95 08/03/19 06:00 08/03/19 06:00 08/03/19 06:00 08/03/19 06:00 08/03/19 06:00 Oxygen Flow Rate (L/min) 2 Oxygen Delivery Method Room Air Weight: 255 lb 15.307 oz Body Mass Index (BMI) 37.4 Finger Stick Blood Glucose 159 Intake and Output for Last 24 Hours 08/01/19 08/02/19 08/03/19 23:59 23:59 23:59 Intake Total 3477.70 / 3483.65 2278.68 / 2278.68 985.42 / 985.42 Output Total 1924 / 1924 1974 / 1974 500 / 500 Balance 1552.70 / 1558.65 303.68 / 303.68 485.42 / 485.42 Labs (Last 48 Hours) 08/01/19 08/01/19 08/01/19 09:57 10:09 10:09 WBC 6.4 RBC 3.71 L Hgb 10.8 L Hct 34.6 L MCV 93.3 MCH 29.1 MCHC 31.2 L RDW Std Deviation 52.2 H RDW Coeff of Suraj 15.2 H Plt Count 326 MPV 9.8 Immature Gran % (Auto) 0.800 Neut % (Auto) 59.8 Lymph % (Auto) 26.6 Dickson % (Auto) 10.3 H Eos % (Auto) 1.9 Baso % (Auto) 0.6 Absolute Neuts (auto) 3.9 Absolute Lymphs (auto) 1.71 Nucleated RBC % 0 PT 16.8 H INR 1.4 APTT 32.1 Specimen Type Sample Site pH Bicarbonate Actual POC Total CO2 Base Excess O2 Saturation O2 % ABG pCO2 ABG pO2 Respiration Rate O2 Delivery Device Vent Mode Tidal Volume POC PEEP Blood Gas Notified Whom Blood Gas Notified Time Sodium Potassium Chloride Carbon Dioxide Anion Gap BUN Creatinine Estim Creat Clear Calc Est GFR (MDRD) Af Amer Est GFR (MDRD) Non-Af BUN/Creatinine Ratio Glucose Lactic Acid Calcium Total Bilirubin Direct Bilirubin GGT AST ALT Alkaline Phosphatase Total Creatine Kinase Troponin I B-Natriuretic Peptide Total Protein Albumin Globulin Albumin/Globulin Ratio Triglycerides Lipase Urine Color Urine Clarity Urine pH Ur Specific [place] Urine Protein Urine Glucose (UA) Urine Ketones Urine Occult Blood Urine Nitrite Urine Bilirubin Urine Urobilinogen Ur Leukocyte Esterase Urine RBC Urine WBC Ur Squamous Epith Cells Urine Bacteria Urine Mucus POC Glucose 91 08/01/19 08/01/19 08/01/19 10:09 10:09 10:22 WBC RBC Hgb Hct MCV MCH MCHC RDW Std Deviation RDW Coeff of Suraj Plt Count MPV Immature Gran % (Auto) Neut % (Auto) Lymph % (Auto) Dickson % (Auto) Eos % (Auto) Baso % (Auto) Absolute Neuts (auto) Absolute Lymphs (auto) Nucleated RBC % PT INR APTT Specimen Type Sample Site pH Bicarbonate Actual POC Total CO2 Base Excess O2 Saturation O2 % ABG pCO2 ABG pO2 Respiration Rate O2 Delivery Device Vent Mode Tidal Volume POC PEEP Blood Gas Notified Whom Blood Gas Notified Time Sodium 140 Potassium 4.1 Chloride 108 H Carbon Dioxide 26.0 Anion Gap 6 BUN 52 H Creatinine 1.83 H Estim Creat Clear Calc 33.24 Est GFR (MDRD) Af Amer 46 L Est GFR (MDRD) Non-Af 38 L BUN/Creatinine Ratio 28.4 H Glucose 105 Lactic Acid Calcium 8.5 Total Bilirubin 0.20 Direct Bilirubin 0.14 GGT AST 28 ALT 21 Alkaline Phosphatase 173 H Total Creatine Kinase Troponin I < 0.015 B-Natriuretic Peptide 163.4 H Total Protein 7.1 Albumin 2.3 L Globulin 4.8 H Albumin/Globulin Ratio Triglycerides Lipase 543 H Urine Color Urine Clarity Urine pH Ur Specific [place] Urine Protein Urine Glucose (UA) Urine Ketones Urine Occult Blood Urine Nitrite Urine Bilirubin Urine Urobilinogen Ur Leukocyte Esterase Urine RBC Urine WBC Ur Squamous Epith Cells Urine Bacteria Urine Mucus POC Glucose 89 08/01/19 08/01/19 08/01/19 10:42 10:42 11:09 WBC RBC Hgb Hct MCV MCH MCHC RDW Std Deviation RDW Coeff of Suraj Plt Count MPV Immature Gran % (Auto) Neut % (Auto) Lymph % (Auto) Dickson % (Auto) Eos % (Auto) Baso % (Auto) Absolute Neuts (auto) Absolute Lymphs (auto) Nucleated RBC % PT INR APTT Specimen Type KATHARINE Sample Site R Brachial pH 7.28 L Bicarbonate Actual 22.8 POC Total CO2 24 Base Excess -4 L O2 Saturation 44 L O2 % 45 ABG pCO2 48.8 H ABG pO2 28 L* Respiration Rate 12 O2 Delivery Device Vent Vent Mode A-C Tidal Volume 500 POC PEEP 5 Blood Gas Notified Whom ED Blood Gas Notified Time 1106 Sodium Potassium Chloride Carbon Dioxide Anion Gap BUN Creatinine Estim Creat Clear Calc Est GFR (MDRD) Af Amer Est GFR (MDRD) Non-Af BUN/Creatinine Ratio Glucose Lactic Acid 2.1 H* Calcium Total Bilirubin Direct Bilirubin GGT AST ALT Alkaline Phosphatase Total Creatine Kinase Troponin I B-Natriuretic Peptide Total Protein Albumin Globulin Albumin/Globulin Ratio Triglycerides Lipase Urine Color Yellow Urine Clarity Clear Urine pH 6.0 Ur Specific [place] 1.015 Urine Protein Negative Urine Glucose (UA) Normal Urine Ketones Negative Urine Occult Blood Negative Urine Nitrite Negative Urine Bilirubin Negative Urine Urobilinogen Normal Ur Leukocyte Esterase Negative Urine RBC 0 SEEN Urine WBC 0 SEEN Ur Squamous Epith Cells 0 SEEN Urine Bacteria 0 SEEN Urine Mucus 0 SEEN POC Glucose 08/01/19 08/01/19 08/01/19 12:07 12:51 14:45 WBC RBC Hgb Hct MCV MCH MCHC RDW Std Deviation RDW Coeff of Suraj Plt Count MPV Immature Gran % (Auto) Neut % (Auto) Lymph % (Auto) Dickson % (Auto) Eos % (Auto) Baso % (Auto) Absolute Neuts (auto) Absolute Lymphs (auto) Nucleated RBC % PT INR APTT Specimen Type Sample Site pH Bicarbonate Actual POC Total CO2 Base Excess O2 Saturation O2 % ABG pCO2 ABG pO2 Respiration Rate O2 Delivery Device Vent Mode Tidal Volume POC PEEP Blood Gas Notified Whom Blood Gas Notified Time Sodium Potassium Chloride Carbon Dioxide Anion Gap BUN Creatinine Estim Creat Clear Calc Est GFR (MDRD) Af Amer Est GFR (MDRD) Non-Af BUN/Creatinine Ratio Glucose Lactic Acid Calcium Total Bilirubin Direct Bilirubin GGT AST ALT Alkaline Phosphatase Total Creatine Kinase Troponin I B-Natriuretic Peptide Total Protein Albumin Globulin Albumin/Globulin Ratio Triglycerides Lipase Urine Color Urine Clarity Urine pH Ur Specific [place] Urine Protein Urine Glucose (UA) Urine Ketones Urine Occult Blood Urine Nitrite Urine Bilirubin Urine Urobilinogen Ur Leukocyte Esterase Urine RBC Urine WBC Ur Squamous Epith Cells Urine Bacteria Urine Mucus POC Glucose 65 L 159 H 133 H 08/01/19 08/01/19 08/01/19 15:20 15:20 17:32 WBC RBC Hgb Hct MCV MCH MCHC RDW Std Deviation RDW Coeff of Suraj Plt Count MPV Immature Gran % (Auto) Neut % (Auto) Lymph % (Auto) Dickson % (Auto) Eos % (Auto) Baso % (Auto) Absolute Neuts (auto) Absolute Lymphs (auto) Nucleated RBC % PT 20.7 H INR 1.8 APTT Specimen Type Sample Site pH Bicarbonate Actual POC Total CO2 Base Excess O2 Saturation O2 % ABG pCO2 ABG pO2 Respiration Rate O2 Delivery Device Vent Mode Tidal Volume POC PEEP Blood Gas Notified Whom Blood Gas Notified Time Sodium Potassium Chloride Carbon Dioxide Anion Gap BUN Creatinine Estim Creat Clear Calc Est GFR (MDRD) Af Amer Est GFR (MDRD) Non-Af BUN/Creatinine Ratio Glucose Lactic Acid 1.6 Calcium Total Bilirubin Direct Bilirubin GGT AST ALT Alkaline Phosphatase Total Creatine Kinase Troponin I B-Natriuretic Peptide Total Protein Albumin Globulin Albumin/Globulin Ratio Triglycerides Lipase Urine Color Urine Clarity Urine pH Ur Specific [place] Urine Protein Urine Glucose (UA) Urine Ketones Urine Occult Blood Urine Nitrite Urine Bilirubin Urine Urobilinogen Ur Leukocyte Esterase Urine RBC Urine WBC Ur Squamous Epith Cells Urine Bacteria Urine Mucus POC Glucose 208 H 08/01/19 08/02/19 08/02/19 21:49 01:52 05:40 WBC RBC Hgb Hct MCV MCH MCHC RDW Std Deviation RDW Coeff of Suraj Plt Count MPV Immature Gran % (Auto) Neut % (Auto) Lymph % (Auto) Dickson % (Auto) Eos % (Auto) Baso % (Auto) Absolute Neuts (auto) Absolute Lymphs (auto) Nucleated RBC % PT INR APTT Specimen Type Sample Site pH Bicarbonate Actual POC Total CO2 Base Excess O2 Saturation O2 % ABG pCO2 ABG pO2 Respiration Rate O2 Delivery Device Vent Mode Tidal Volume POC PEEP Blood Gas Notified Whom Blood Gas Notified Time Sodium Potassium Chloride Carbon Dioxide Anion Gap BUN Creatinine Estim Creat Clear Calc Est GFR (MDRD) Af Amer Est GFR (MDRD) Non-Af BUN/Creatinine Ratio Glucose Lactic Acid Calcium Total Bilirubin Direct Bilirubin GGT AST ALT Alkaline Phosphatase Total Creatine Kinase Troponin I B-Natriuretic Peptide Total Protein Albumin Globulin Albumin/Globulin Ratio Triglycerides Lipase Urine Color Urine Clarity Urine pH Ur Specific [place] Urine Protein Urine Glucose (UA) Urine Ketones Urine Occult Blood Urine Nitrite Urine Bilirubin Urine Urobilinogen Ur Leukocyte Esterase Urine RBC Urine WBC Ur Squamous Epith Cells Urine Bacteria Urine Mucus POC Glucose 187 H 158 H 129 H 08/02/19 08/02/19 08/02/19 05:45 05:45 05:45 WBC 7.3 RBC 3.28 L Hgb 9.4 L Hct 30.3 L MCV 92.4 MCH 28.7 MCHC 31.0 L RDW Std Deviation 50.4 H RDW Coeff of Suraj 15.0 H Plt Count 272 MPV 9.7 Immature Gran % (Auto) 0.400 Neut % (Auto) 75.9 H Lymph % (Auto) 13.9 L Dickson % (Auto) 8.7 Eos % (Auto) 0.8 Baso % (Auto) 0.3 Absolute Neuts (auto) 5.5 Absolute Lymphs (auto) 1.01 Nucleated RBC % 0 PT INR APTT Specimen Type Sample Site pH Bicarbonate Actual POC Total CO2 Base Excess O2 Saturation O2 % ABG pCO2 ABG pO2 Respiration Rate O2 Delivery Device Vent Mode Tidal Volume POC PEEP Blood Gas Notified Whom Blood Gas Notified Time Sodium 140 Potassium 3.9 Chloride 110 H Carbon Dioxide 25.0 Anion Gap 5 BUN 41 H Creatinine 1.56 H Estim Creat Clear Calc 39.00 Est GFR (MDRD) Af Amer 55 L Est GFR (MDRD) Non-Af 46 L BUN/Creatinine Ratio 26.3 H Glucose 127 H Lactic Acid Calcium 8.0 L Total Bilirubin 0.40 Direct Bilirubin GGT 55 AST 31 ALT 18 Alkaline Phosphatase 155 H Total Creatine Kinase 423 H Troponin I B-Natriuretic Peptide Total Protein 6.0 L Albumin 2.0 L Globulin 4.0 Albumin/Globulin Ratio 0.5 L Triglycerides 61 Lipase 935 H Urine Color Urine Clarity Urine pH Ur Specific [place] Urine Protein Urine Glucose (UA) Urine Ketones Urine Occult Blood Urine Nitrite Urine Bilirubin Urine Urobilinogen Ur Leukocyte Esterase Urine RBC Urine WBC Ur Squamous Epith Cells Urine Bacteria Urine Mucus POC Glucose 08/02/19 08/02/19 08/02/19 10:42 13:56 17:24 WBC RBC Hgb Hct MCV MCH MCHC RDW Std Deviation RDW Coeff of Suraj Plt Count MPV Immature Gran % (Auto) Neut % (Auto) Lymph % (Auto) Dickson % (Auto) Eos % (Auto) Baso % (Auto) Absolute Neuts (auto) Absolute Lymphs (auto) Nucleated RBC % PT INR APTT Specimen Type Sample Site pH Bicarbonate Actual POC Total CO2 Base Excess O2 Saturation O2 % ABG pCO2 ABG pO2 Respiration Rate O2 Delivery Device Vent Mode Tidal Volume POC PEEP Blood Gas Notified Whom Blood Gas Notified Time Sodium Potassium Chloride Carbon Dioxide Anion Gap BUN Creatinine Estim Creat Clear Calc Est GFR (MDRD) Af Amer Est GFR (MDRD) Non-Af BUN/Creatinine Ratio Glucose Lactic Acid Calcium Total Bilirubin Direct Bilirubin GGT AST ALT Alkaline Phosphatase Total Creatine Kinase Troponin I B-Natriuretic Peptide Total Protein Albumin Globulin Albumin/Globulin Ratio Triglycerides Lipase Urine Color Urine Clarity Urine pH Ur Specific [place] Urine Protein Urine Glucose (UA) Urine Ketones Urine Occult Blood Urine Nitrite Urine Bilirubin Urine Urobilinogen Ur Leukocyte Esterase Urine RBC Urine WBC Ur Squamous Epith Cells Urine Bacteria Urine Mucus POC Glucose 91 72 113 H 08/02/19 08/03/19 08/03/19 21:43 02:02 05:35 WBC RBC Hgb Hct MCV MCH MCHC RDW Std Deviation RDW Coeff of Suraj Plt Count MPV Immature Gran % (Auto) Neut % (Auto) Lymph % (Auto) Dickson % (Auto) Eos % (Auto) Baso % (Auto) Absolute Neuts (auto) Absolute Lymphs (auto) Nucleated RBC % PT INR APTT Specimen Type Sample Site pH Bicarbonate Actual POC Total CO2 Base Excess O2 Saturation O2 % ABG pCO2 ABG pO2 Respiration Rate O2 Delivery Device Vent Mode Tidal Volume POC PEEP Blood Gas Notified Whom Blood Gas Notified Time Sodium Potassium Chloride Carbon Dioxide Anion Gap BUN Creatinine Estim Creat Clear Calc Est GFR (MDRD) Af Amer Est GFR (MDRD) Non-Af BUN/Creatinine Ratio Glucose Lactic Acid Calcium Total Bilirubin Direct Bilirubin GGT AST ALT Alkaline Phosphatase Total Creatine Kinase Troponin I B-Natriuretic Peptide Total Protein Albumin Globulin Albumin/Globulin Ratio Triglycerides Lipase Urine Color Urine Clarity Urine pH Ur Specific [place] Urine Protein Urine Glucose (UA) Urine Ketones Urine Occult Blood Urine Nitrite Urine Bilirubin Urine Urobilinogen Ur Leukocyte Esterase Urine RBC Urine WBC Ur Squamous Epith Cells Urine Bacteria Urine Mucus POC Glucose 221 H 188 H 144 H Microbiology 08/01/19 10:42 Urine Catheter - Fierro Urine Culture - Preliminary Culture exhibits no growth. Clinical Impression(s) from Imaging Studies Brain CT 08/01/19 10:19 IMPRESSION: 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 Age indeterminate hypodensity in the left centrum semiovale white matter. Acute ischemia is hard to exclude. MRI can be obtained for further evaluation. Bilateral ethmoid sinus disease. N.B. : The above information has been verbally conveyed by Wade Mendez to Wade Williamson MD, MD, on 08/01/2019 11:56:29 (ET). Electronically Signed: Wade Mendez, at 11:42 EST Tel , Service support , Chest X-Ray 08/01/19 10:20 IMPRESSION: Tubes and lines as described. Questionable small effusion and airspace disease at the right lung base. Electronically Signed: Wade Mendez, at 11:35 EST Tel , Service support , Liver Ultrasound 08/02/19 06:51 IMPRESSION: Fatty infiltration of the liver. Electronically Signed: Wayne Wang, at 9:00 EST , Service support , Brain MRI 08/02/19 10:05 IMPRESSION: 1. Chronic involutional and mild chronic ischemic changes of the brain, as described above. Electronically Signed: Rafael Mckeon MD at 15:52 EST , Service support , Chest X-Ray 08/02/19 13:25 IMPRESSION: Minimal residual linear changes seen at the left lung base. Electronically Signed: Wayne Hermanrod, at 13:43 EST , Service support , Medical Necessity - Tobacco Use Smoking Status: Former smoker Assessment/Plan All Active Problems Airway intubation performed without difficulty (Acute) Encounter for central line placement (Acute) Unresponsive (Acute) Respiratory failure (Acute) Hypothermia (Acute) RECOMMENDATIONS: 1. Stop continuous supplemental IV fluids. 2. Encourage incentive spirometer use and mobilize patient as tolerated. 3. Continue Pap therapy with naps and nightly. 4. The patient is medically stable for transfer out of the intensive care unit. Will sign off from a critical care perspective. IMPRESSIONS: 1. Acute hypoxemic respiratory failure The patient was initially intubated in the emergency department due to encephalopathy. With medical stabilization, the patient was able to be extubated on August 02. He has done well from a respiratory perspective and is currently maintaining appropriate oxygen saturations on room air. Supplemental IV fluids can be discontinued from my perspective. Continue to encourage incentive spirometer use and mobilize patient as tolerated. 2. Encephalopathy Improved. Etiology unclear, however, the patient's depressed mental state was initially felt to be secondary to his hypoglycemia. He does have a history of CVA, per family. MRI brain obtained during his hospitalization revealed no acute findings. Avoid sedating medications. 3. Acute on chronic kidney disease Resolved. Likely prerenal in etiology. The patient has received supplemental IV fluid hydration with subsequent improvement in his creatinine. We will continue to monitor urine output. No indication for renal replacement therapy at this time. 4. Recent left foot MSSA osteomyelitis, requiring surgical intervention The patient apparently completed his treatment course of p.o. doxycycline as recommended by infectious diseases during his last hospitalization. 5. Obstructive sleep apnea Recommend continuation of nocturnal Pap therapy with naps and nightly. 6. History of coronary artery disease/atrial flutter/fibrillation/peripheral vascular disease/history of pulmonary embolism Complicates care, management, recovery and prognosis. Eliquis will be held with therapeutic Lovenox utilized in its place. This note was generated with Pik[employer] dictation software. It may contain incorrect words, spelling, and punctuation that were not noted in checking the note before signing. Code Visit Inpatient E&M: 18750 Subs Hosp L3
[2019-08-03 07:13] LABS: Anion Gap 5 (5-15); BUN 27 mg/dL (7-18); BUN/Creat Ratio 20.9 RATIO (10-20); Calcium,Total 8.1 mg/dL (8.5-10.1); Chloride 110 mmol/L (98-107); Creatinine, Serum 1.29 mg/dL (0.70-1.30); EST Glomerular Filtration Rate 57 mL/min (>60); Est Glom Filt Rate - Afr Amer 69 mL/min (>60); Estimated Creatinine Clearance 47.16 ml/min; Glucose 147 mg/dL (74-106); Potassium 3.6 mmol/L (3.5-5.1); Sodium Level 140 mmol/L (136-145)
--- NOTE | 2019-08-03 07:20 | PN_ITS ---
Patient Problems: Active and Suspected Problems Airway intubation performed without difficulty (Acute) Encounter for central line placement (Acute) Unresponsive (Acute) Respiratory failure (Acute) Hypothermia (Acute) Reason for Visit: acute encephalopathy Subjective: Patient significant lethargy resolved. MRI obtained the day prior did not demonstrate any acute CVA. Per nursing staff patient was combative during the night Objective: GENERAL: Cooperative HEENT: Atraumatic; EYES; Anicteric, Normal Conjunctiva NECK; supple, normal thyroid, RESPIRATORY: Diminished to auscultation CARDIOVASCULAR: Irregular S1-S2 GI: soft, normoactive bowel sounds, : No Renal angle tenderness; EXTREMITIES: No edema, no clubbing, MUSCULOSKELETAL: no muscle waisting NEURO: Awake no lateralizing signs SKIN: No Rash PSYCH; flat Vitals/I&O's: Vital Signs Temp Pulse Resp BP Pulse Ox 97.6 F L 107 H 22 H 112/79 95 08/03/19 06:00 08/03/19 06:00 08/03/19 06:00 08/03/19 06:00 08/03/19 06:00 Oxygen Flow Rate (L/min) 2 Oxygen Delivery Method Room Air Weight: 116.1 kg Body Mass Index (BMI) 37.4 Finger Stick Blood Glucose 159 Intake and Output for Last 24 Hours 08/01/19 08/02/19 08/03/19 23:59 23:59 23:59 Intake Total 3477.70 / 3483.65 2278.68 / 2278.68 985.42 / 985.42 Output Total 1925 / 1925 1974 / 1974 500 / 500 Balance 1552.70 / 1558.65 303.68 / 303.68 485.42 / 485.42 Microbiology Past 72 Hours 08/01/19 10:42 Urine Catheter - Fierro Urine Culture - Preliminary Culture exhibits no growth. Laboratory Results 08/02/19 05:45: GGT 55 08/02/19 10:42: POC Glucose 91 08/02/19 13:56: POC Glucose 72 08/02/19 17:24: POC Glucose 113 H 08/02/19 21:43: POC Glucose 221 H 08/03/19 02:02: POC Glucose 188 H 08/03/19 05:35: POC Glucose 144 H 08/03/19 06:55: Sodium 140, Potassium 3.6, Chloride 110 H, Carbon Dioxide 25.0, Anion Gap 5, BUN 27 H, Creatinine 1.29, Estim Creat Clear Calc 47.16, Est GFR (MDRD) Af Amer 69, Est GFR (MDRD) Non-Af 57 L, BUN/Creatinine Ratio 20.9 H, Glucose 147 H, Calcium 8.1 L Current Medications Chlorhexidine Gluconate () 1 each TOPICAL DAILY [facility] Last Admin: 08/02/19 10:31 Dose: 1 each Documented by: Clopidogrel Bisulfate (Plavix) 75 mg PO DAILY [facility] Enoxaparin Sodium (Lovenox) 120 mg SC BID [facility] Last Admin: 08/02/19 21:46 Dose: 120 mg Documented by: Glucagon () 1 mg IM .X1 PRN PRN Reason: Hypoglycemia Famotidine 20 mg/ Sodium (Chloride) 10 mls @ 300 mls/hr IV DAILY [facility] Last Infusion: 08/02/19 10:43 Dose: Infused Documented by: Dextrose (Dextrose 10%-Water) 250 mls @ 999 mls/hr IV .Q16M PRN; Protocol PRN Reason: HYPOGLYCEMIA Last Infusion: 08/02/19 15:12 Dose: Infused Documented by: Insulin Human Lispro (Humalog Kwikpen (Bkc)) 0 unit SC Q4 [facility]; Protocol Last Admin: 08/03/19 05:37 Dose: Not Given Documented by: Ondansetron HCl (Zofran) 4 mg IV Q8H PRN PRN PRN Reason: NAUSEA/VOMITING Pantoprazole Sodium (Protonix) 20 mg PO DAILY [facility] Sodium Chloride () 10 - 40 ml IV UD PRN PRN Reason: Multilumen/Nava Flush Sodium Chloride (0.9% Nacl (Sterile) Posiflush) 10 - 40 ml IV UD PRN PRN Reason: Port access or dressing change STROKE Vital Signs/Narrative: Vital Signs Temp Pulse Resp BP Pulse Ox 08/03/19 06:00 97.6 F L 107 H 22 H 112/79 95 08/03/19 05:00 110 H 23 H 115/64 97 08/03/19 04:00 98.4 F 108 H 22 H 137/87 H 93 08/03/19 03:44 105 H Medical Necessity - Tobacco Use Smoking Status: Former smoker Assessment/Plan All Active Problems Airway intubation performed without difficulty (Acute) Encounter for central line placement (Acute) Unresponsive (Acute) Respiratory failure (Acute) Hypothermia (Acute) Patient is an 79-year-old lady resident [facility] brought seen with decreased level of sensorium intubated in the ED and admitted to the intensive care unit. 1. Acute encephalopathy ?Of undetermined etiology. CT of the head obtained in the emergency department could not exclude acute CVA MRI has subsequently been ordered for further evaluation after discussion with Dr. Alfaro ?08/03/2019 MRI obtained was negative for acute CVA 2. Acute hypoxic respiratory failure ?Patient was intubated in the ED prior to his admission weaned off the vent on the morning of 08/02/2019. ?08/03/2019 patient currently on room air 3. Suspected sepsis from infected left foot cellulitis with left big toe osteomyelitis ? Patient with hypotension as well as hypothermia. Lactic acid was 3.1. Patient had recently completed antibiotic therapy. Patient was resuscitated with aggressive IV fluids repeat lactic acid level back to 1.6. ?08/03/2019; blood cultures have remained negative to date 4. Diabetes mellitus type II ~Complications including diabetic nephropathy, patient's oral hypoglycemics held. Placed on Accu-Cheks a.c. and at bedtime and covered with sliding scale insulin 5. Recent admission with left foot cellulitis as well as left big toe oste omyelitis Patient was treated with cefazolin infectious disease recommended p.o. doxycycline for 2 to 4 weeks following discharge 6. Chronic kidney disease stage III Secondary to diabetic nephropathy. Patient kidney function close to baseline 7. Coronary artery disease ?With previous CABG and stent placement. Stent placement.catheterization performed on 07/23/2019 demonstrated patent grafts except for an occluded SVG to RCA which was apparently old. 8. Paroxysmal atrial fibrillation/flutter ?Patient was started on amiodarone on discharge resumed on admission 9. History of pulmonary embolism ?Patient is on Eliquis held on admission managed with therapeutic Lovenox 10. Peripheral vascular disease ?Patient had a recent ELOY which demonstrated bilateral moderately severe atrial occlusive disease. Patient was apparently scheduled to follow-up with Dr. Alfaro for angiogram 11. GERD - PPI 12. Dyslipidemia ?patient is on Zetia resume 13. Essential hypertension ?Patient antihypertensive regimen placed on hold in view of patient presented with hypotension 10. DVT prophylaxis ?Patient is on systemic anticoagulation Code Visit Inpatient E&M: 02310 [facility] Hosp L2
--- NOTE | 2019-08-03 09:57 | NURSING ---
Per family request, called and talked with Dr Juarez Parker's office to let them know that patient is in the hospital again. Pt is s/p left foot partial first ray amputation. Pt is to have sutures removed on 08/06/19. dry dressing applied at this time. Dr Parker to call with any further questions. notified family that this nurse talked with the office.
--- NOTE | 2019-08-03 10:34 | NURSING ---
wound photo: left foot
--- NOTE | 2019-08-03 11:00 | CASEMGMT ---
SW spoke with patient's family. Patient is confused. They are looking at sending patient to another facility. SW gave them a list of in network facilities and suggested they go visit them. They had numerous other questions regarding terminal worker care and Medicaid. SW answered their questions to the best of SW's ability. SW strongly suggested they talk with someone at [facility] regarding these questions. They will let SW know when they pick a facility. SW did leave SW's card with family. Chelsie MANCILLA PALEONTOLOGY TEACHER
[2019-08-03 11:36] LABS: Bedside Glucose 167 mg/dL (70-110)
[2019-08-03] MEDS: Enoxaparin 120 MG/0.8 ML Syringe SC ×2 (11:39→21:29)
[2019-08-03 11:54] LABS: Anion Gap 6 (5-15); BUN 25 mg/dL (7-18); BUN/Creat Ratio 19.5 RATIO (10-20); Calcium,Total 8.4 mg/dL (8.5-10.1); Chloride 110 mmol/L (98-107); Creatinine, Serum 1.28 mg/dL (0.70-1.30); EST Glomerular Filtration Rate 57 mL/min (>60); Est Glom Filt Rate - Afr Amer 70 mL/min (>60); Estimated Creatinine Clearance 47.53 ml/min; Glucose 173 mg/dL (74-106); Potassium 3.5 mmol/L (3.5-5.1); Sodium Level 141 mmol/L (136-145)
--- NOTE | 2019-08-03 13:38 | PCM.CONS.GEN ---
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 Qualifiers: Diabetic foot ulcer location: toe Diabetes mellitus type: type 2 Qualified Code(s): E11.621 - Type 2 diabetes mellitus with foot ulcer; L97.524 - Non-pressure chronic ulcer of other part of left foot with necrosis of bone (2) Peripheral vascular disease Status: Chronic (3) Diabetic foot ulcer Status: Chronic Qualifiers: Diabetic foot ulcer location: toe Diabetes mellitus type: type 2 Laterality: right Non-pressure ulcer stage: with necrosis of bone Qualified Code(s): E11.621 - Type 2 diabetes mellitus with foot ulcer; L97.514 - Non-pressure chronic ulcer of other part of right foot with necrosis of bone (4) Peripheral neuropathy Status: Chronic (5) Diabetes mellitus type II, controlled Status: Chronic Reason for Consult Date of Consultation: 08/03/19 Reason for Consultation: Left foot evaluation s/p partial first ray amputation on 07/20/2019 History of Present Illness: The patient is a 79 year old M patient with past medical history as mentioned above presented [facility] because of unresponsiveness. This was on 08/01/2019. At that time time, patient is intubated, on mechanical ventilation and on sedation. Reportedly according to the ER physician and nursing staff at the [facility], patient was given his insulin around 7 AM that morning, went to breakfast and while he is eating his breakfast, went back to his room and he was found unresponsive. When the squad arrived, blood sugar was 152 mg/dL. In route to the hospital, patient became apneic and pulse ox came down to mid 80s, he was bagged and he was breathing on his own. His blood sugar on that morning was 68mg/dL at 7am on the morning of 08/01/2019. He received 25 units of 70/30 insulin and he went for breakfast and around 9:15 AM, he was found unresponsive in his home. According to the patient's , patient's PCP informed the patient that his blood sugar should be always around 150 mg/dL. She mentioned that if his blood sugar goes down to 80s, he feels sick and he developed symptoms of hypoglycemia. Patient was discharged from the hospital on July 23, 2019 after admission for left forefoot cellulitis/infected diabetic left big toe ulcer/left big toe osteomyelitis status post left foot partial first ray amputation that was performed by me. His cultures showed MSSA and he was discharged on doxycycline for [address] Wells. During his last admission, and after surgery, patient developed chest pain with EKG changes for which cardiology consulted and he underwent cardiac catheterization that revealed patent coronary stents without evidence of new lesions and no interventions performed. He was started on amiodarone at that time. Patient was intubated and started mechanical ventilation. Patient has been hypotensive, blood pressure has been 80s to 70 systolic and he was started on IV Levophed drip. He was afebrile, no tachycardia. His routine blood work was remarkable for chronic anemia, BUN of 52, creatinine of 1.83. Lactic acid was 2.1. EKG revealed atrial flutter, no acute changes. Troponin was negative. LFT was unremarkable. Lactic acid was 2.1. I was then consulted for evaluation of the surgical site of the left foot. Patient saw me in the office this past July 30 for further evaluation. At that time, the surgical site was clean and intact with no signs of acute clinical infection. A new dressing was placed on the left foot did not be disturbed until his follow-up appointment with me on August 06. Patient is remain nonweightbearing to the left foot as instructed. Blood cultures on previous admission were negative and wound cultures from the left foot after surgery showed MSSA. [] Past Medical History Past Medical History (Chronic Problems): Chronic Problems History of left heart catheterization (Chronic 07/23/19) Segmented LV systolic dysfunction- Moderate LVEF: by LV gram 50 % Depressed Left Ventricular systolic function - Mild Triple vessel CAD of the LM, LAD, LCX, RCA Widely patent FULLER To LAD; Widely patent SVG to OM; Occluded SVG to RCA (old) Widely patent stents x 3 to proximal, mid and distal RCA. 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 (Chronic) Peripheral vascular disease (Chronic) Diabetic foot ulcer (Chronic) Peripheral neuropathy (Chronic) Obesity (Chronic) History of pulmonary embolism (Chronic) Hypertension (Chronic) Hyperlipidemia (Chronic) History of CVA (cerebrovascular accident) (Chronic) CKD (chronic kidney disease) stage 3, GFR 30-59 ml/min (Chronic) Ulcer of right foot with necrosis of bone (Chronic) Osteomyelitis (Chronic) Ulcer of right foot with fat layer exposed (Chronic) GERD (gastroesophageal reflux disease) (Chronic) Coronary artery disease involving [place] coronary artery of [place] heart (Chronic) Gout (Chronic) Lumbosacral stenosis (Chronic) Lumbosacral radiculopathy (Chronic) PAD (peripheral artery disease) (Chronic) Diabetes mellitus type II, controlled (Chronic) Allergies allopurinol Adverse Reaction (Verified 08/02/19 09:10) Other exenatide [From Byetta] Adverse Reaction (Verified 08/02/19 09:10) Other insulin aspart [From Novolog] Adverse Reaction (Verified 08/02/19 09:10) Other insulin glargine, human recombin. a [From Lantus] Adverse Reaction (Verified 08/02/19 09:10) Other morphine Adverse Reaction (Verified 08/02/19 09:10) Other DOES NOT HELP PAIN, MAKES ME FEEL OUT OF IT Bluqnpm-Czo-Jld Reductase Inhibitor Adverse Reaction (Verified 08/02/19 09:10) Other Home Medications: Ambulatory Orders Medication Instructions Recorded Alirocumab [Praluent Pen] 75 mg SQ UD 08/01/19 Clopidogrel Bisulfate [Plavix] 75 mg PO DAILY 08/01/19 Furosemide [Lasix] 80 mg PO DAILY 08/01/19 Glipizide 10 mg PO BID 08/01/19 Metoprolol Tartrate 25 mg PO 199908/01/19 Metoprolol Tartrate [Lopressor 50 mg PO 0800 08/01/19 (Beta Deborah)] Pantoprazole Sodium [Protonix] 20 mg PO DAILY 08/01/19 Probenecid 500 mg PO BID 08/01/19 Timolol 0.5% [Timoptic] 1 drp EACH EYE BID 08/01/19 traMADol [Ultram (G)] 50 mg PO Q6H PRN PRN 08/01/19 Aspirin [Adult Aspirin Regimen] 81 mg PO DAILY 08/02/19 Chromium Picolinate 5 gm MC DAILY 08/02/19 Ezetimibe [Zetia] 10 mg PO DAILY 08/02/19 Surgical History: angioplasty, cholecystectomy, coronary bypass surgery, total knee arthroplasty, tonsillectomy, - - Vein stripping, rectal fistula repair, ORIF fractured leg, bilateral cataract extraction, left foot partial first ray amputation Lives: Intermediate Smoking Status: Former smoker Alcohol: None Drugs: None - *Family History Paternal History Items: - - The patient's father at age of 69 with a history of coronary artery disease and diabetes mellitus. The patient's mother lived to be 95 years of age, and passed of old age. Review of Systems Constitutional: Denies: Anorexia, Chills, Fever HEENT: Reports: Difficulty Hearing. Denies: Difficulty Swallowing, Head Aches Cardiovascular: Denies: Chest Pain, Chest Pressure, Chest Tightness Respiratory: Reports: Shortness of breath upon exertion. Denies: Shortness of Breath Gastrointestinal: Denies: Abdominal Pain, Constipation Genitourinary: Denies: Dysuria, Frequency, Incontinence Musculoskeletal: Denies: Foot Pain Psychiatric: Denies: Anxiety, Depression Endocrine: Denies: Change in Body Habitus, Heat/ Cold Intolerance Patient Problems: Active and Suspected Problems Airway intubation performed without difficulty (Acute) Encounter for central line placement (Acute) Unresponsive (Acute) Respiratory failure (Acute) Hypothermia (Acute) Subjective: Patient seen at bedside today. Patient was resting comfortably and sleeping. Difficulty awakening patient, drowsy throughout examination. Patient states that he is feeling much better since he has been brought to the hospital. Patient denies any other acute complaints at this time. Upon verbal questioning staff, they relate that patient is much more awake, alert, and oriented that upon admission. No other acute events reported. Currently, patient denies fever, chills, nausea, vomiting, shortness of breath, chest pain. Patient denies pain of left foot. Objective: Focused on the left lower extremity: Surgical site of left foot is well coapted with sutures intact. At the surgical site, there is no fluctuance, no crepitus, no malodor, no drainage, no purulence. There is positive edema but no erythema. There are no signs of acute clinical infection of the surgical site. Surgical site appears to be healing well with no signs of dehiscence. No other areas of infection or open lesions noted of the left lower extremity. - Physical Exam Vitals/I&O's: Vital Signs Temp Pulse Resp BP Pulse Ox 96.4 F L 96 24 H 104/78 96 08/03/19 11:00 08/03/19 11:08/03/19 11:08/03/19 11:00 08/03/19 11:00 Oxygen Flow Rate (L/min) 2 Oxygen Delivery Method Room Air Weight: 116.1 kg Body Mass Index (BMI) 37.4 Finger Stick Blood Glucose 159 Intake and Output for Last 24 Hours 08/01/19 08/02/19 08/03/19 23:59 23:59 23:59 Intake Total 3477.70 / 3483.65 2278.68 / 2278.68 985.42 / 985.42 Output Total 1924 / 1924 1974 / 1974 500 / 500 Balance 1552.70 / 1558.65 303.68 / 303.68 485.42 / 485.42 General: Cooperative, No apparent distress, Lethargic HEENT: Atraumatic Oral: Moist Mucosa Lungs: Clear to auscultation, Normal air movement Abdomen: Bowel Sounds Present, Soft, Non Tender, Non-Distended Extremities: No clubbing, No cyanosis, Diminished Peripheral Pulses Skin: - - surgical site to left foot as described above Musculoskeletal: No Tenderness to Palpation of Joints or Extremities Psych/Mental Status: Alert and oriented to time, place, person, mood and affect Microbiology Past 72 Hours 08/01/19 10:42 Urine Catheter - Fierro Urine Culture - Final Culture exhibits no growth. 08/01/19 10:35 Blood Culture (Wb) - Left Wrist Blood Culture - Preliminary No growth in 48 hours. 08/01/19 10:42 Blood Culture (Wb) - Anticubital Left Blood Culture - Preliminary No growth in 48 hours. Laboratory Results 08/02/19 13:56: POC Glucose 72 08/02/19 17:24: POC Glucose 113 H 08/02/19 21:43: POC Glucose 221 H 08/03/19 02:02: POC Glucose 188 H 08/03/19 05:35: POC Glucose 144 H 08/03/19 06:55: Sodium 140, Potassium 3.6, Chloride 110 H, Carbon Dioxide 25.0, Anion Gap 5, BUN 27 H, Creatinine 1.29, Estim Creat Clear Calc 47.16, Est GFR (MDRD) Af Amer 69, Est GFR (MDRD) Non-Af 57 L, BUN/Creatinine Ratio 20.9 H, Glucose 147 H, Calcium 8.1 L 08/03/19 11:30: Sodium 141, Potassium 3.5, Chloride 110 H, Carbon Dioxide 25.0, Anion Gap 6, BUN 25 H, Creatinine 1.28, Estim Creat Clear Calc 47.53, Est GFR (MDRD) Af Amer 70, Est GFR (MDRD) Non-Af 57 L, BUN/Creatinine Ratio 19.5, Glucose 173 H, Calcium 8.4 L 08/03/19 11:32: POC Glucose 167 H Current Medications Chlorhexidine Gluconate () 1 each TOPICAL DAILY [facility] Last Admin: 08/02/19 10:31 Dose: 1 each Documented by: Clopidogrel Bisulfate (Plavix) 75 mg PO DAILY [facility] Last Admin: 08/03/19 11:40 Dose: Not Given Documented by: Enoxaparin Sodium (Lovenox) 120 mg SC BID [facility] Last Admin: 08/03/19 11:39 Dose: 120 mg Documented by: Glucagon () 1 mg IM .X1 PRN PRN Reason: Hypoglycemia Dextrose (Dextrose 10%-Water) 250 mls @ 999 mls/hr IV .Q16M PRN; Protocol PRN Reason: HYPOGLYCEMIA Last Infusion: 08/02/19 15:12 Dose: Infused Documented by: Insulin Human Lispro (Humalog Kwikpen (Bkc)) 0 unit SC Q4 [facility]; Protocol Last Admin: 08/03/19 11:38 Dose: 1 u Documented by: Ondansetron HCl (Zofran) 4 mg IV Q8H PRN PRN PRN Reason: NAUSEA/VOMITING Pantoprazole Sodium (Protonix) 20 mg PO DAILY [facility] Last Admin: 08/03/19 11:40 Dose: Not Given Documented by: Sodium Chloride () 10 - 40 ml IV UD PRN PRN Reason: Multilumen/Nava Flush Sodium Chloride (0.9% Nacl (Sterile) Posiflush) 10 - 40 ml IV UD PRN PRN Reason: Port access or dressing change Assessment/Plan All Active Problems Airway intubation performed without difficulty (Acute) Encounter for central line placement (Acute) Unresponsive (Acute) Respiratory failure (Acute) Hypothermia (Acute) Plan: Patient chart reviewed and patient evaluated. At this time, full discussion had with the patient about his current clinical condition of his left foot. At this time, the dressing is to be left clean, dry, intact the left foot. I do not plan on removing sutures at this time. The earliest that sutures will be removed will be August 06. Preferably, I would like to do this as an outpatient, but if he is still inpatient I will do that as an inpatient. No further dressing changes at this time. The surgical site is clean with no signs of acute infection. I believe that disturbing the surgical site may lead to possible infection. Patient has an appointment scheduled with me as an outpatient on August 06. If patient is discharged by then, he will see me in the office then. If patient is not discharged by then, I will stop by and see the patient and possibly remove the sutures at that time. There are no further surgical interventions by me at this time. If patient is still in hospital on August 06, I will come and see the patient. If not, patient is to follow-up with me in the office at that time. Thank you very much for the consultation and allowing me to take part in the care of your patient. Code Visit Office Visits / Consults: [id number] IP Consult L3
--- NOTE | 2019-08-03 14:06 | NURSING ---
report called to [facility] for transfer to room 101, transferred per bed with belongings family present
--- NOTE | 2019-08-03 14:38 | CHAPLAIN ---
Type of Pastoral Visit ___ Initial Visit _x__ Follow-up Visit ___ On-call Visit ___ General Patient Visit ___ Spiritual Assessment ___ Family Conference ___ Bereavement ___ Rapid Response ___ Code Blue ___ Other (describe below) Pastoral Care Referral From ___ Patient _x__ Family ___ Nurse ___ Physician ___ Study Abroad Coordinator ___ Exceptional Children Teacher Assistant ___ Other (describe below) Sacrament/Intervention _x__ Active listening ___ Anointing ___ Jain ___ Bereavement ___ Communion ___ Prema exploration ___ ___ Life review ___ Prayer ___ Reconciliation ___ Sacrament of Sick _x__ Supportive presence ___ Wedding ___ Other (describe below) Pastoral Comments sat and talked with spouse of patient; pt is sleeping; pt is to be moved to [facility] and then to [facility]; spiritual care and support welcomed by spouse
[2019-08-03 16:26] LABS: Bedside Glucose 115 mg/dL (70-110)
[2019-08-03 18:08] LABS: Anion Gap 6 (5-15); BUN 25 mg/dL (7-18); BUN/Creat Ratio 21.6 RATIO (10-20); Calcium,Total 8.4 mg/dL (8.5-10.1); Chloride 110 mmol/L (98-107); Creatinine, Serum 1.16 mg/dL (0.70-1.30); EST Glomerular Filtration Rate 64 mL/min (>60); Est Glom Filt Rate - Afr Amer 78 mL/min (>60); Estimated Creatinine Clearance 52.44 ml/min; Glucose 121 mg/dL (74-106); Potassium 3.6 mmol/L (3.5-5.1); Sodium Level 142 mmol/L (136-145)
[2019-08-03 21:30] LABS: Bedside Glucose 117 mg/dL (70-110)
--- NOTE | 2019-08-03 22:33 | NURSING ---
pt hitting and pulling on cpap mask. mask removed pt to stressed out wearing it.
--- NOTE | 2019-08-03 22:58 | CPS ---
Pt. didn't tolerate BiPAP shortly after TECHNICAL SERVICES ANALYST put it on. Was becoming very agitated per RN. BiPAP was therefore placed on standby. Will monitor pt. and try to place BiPAP back on later if tolerated.
[2019-08-03] MEDS: 0.9% Saline Lock 10 ML Syringe IV (23:10)
[2019-08-03 23:44] LABS: Anion Gap 7 (5-15); BUN 23 mg/dL (7-18); BUN/Creat Ratio 18.3 RATIO (10-20); Calcium,Total 8.5 mg/dL (8.5-10.1); Chloride 111 mmol/L (98-107); Creatinine, Serum 1.26 mg/dL (0.70-1.30); EST Glomerular Filtration Rate 59 mL/min (>60); Est Glom Filt Rate - Afr Amer 71 mL/min (>60); Estimated Creatinine Clearance 48.28 ml/min; Glucose 125 mg/dL (74-106); Potassium 3.7 mmol/L (3.5-5.1); Sodium Level 143 mmol/L (136-145)
[2019-08-04] VITALS (11 sets, daily range): BP systolic 124–137; BP diastolic 59–84; PULSE 87–123; RESP 18–20; TEMP 36.3–36.9; O2SAT 96–99
[2019-08-04 03:40] LABS: Hematocrit 30.7 % (40-54); Hemoglobin 9.6 g/dL (13.0-16.5); Mean Corp Hgb Conc 31.3 g/dL (32-36); Mean Corpuscular Hgb 28.4 pg (27.0-32.0); Mean Corpuscular Volume 90.8 fL (80-94); Mean Platelet Vol. 9.6 fl (6.2-12.0); Platelet Count 277 K/mm3 (150-450); RBC Distribution Width CV 15.2 % (11.6-14.6); RBC Distribution Width SD 50.4 fl (35.1-43.9); Red Blood Count 3.38 M/mm3 (4.6-6.2); White Blood Count 7.4 K/mm3 (4.4-11.0)
[2019-08-04 04:07] LABS: Anion Gap 6 (5-15); BUN 24 mg/dL (7-18); Calcium,Total 8.3 mg/dL (8.5-10.1); Chloride 111 mmol/L (98-107); Creatinine, Serum 1.26 mg/dL (0.70-1.30); EST Glomerular Filtration Rate 43 mL/min (>60); Est Glom Filt Rate - Afr Amer 53 mL/min (>60); Estimated Creatinine Clearance 48.28 ml/min; Glucose 120 mg/dL (74-106); Potassium 3.8 mmol/L (3.5-5.1); Sodium Level 142 mmol/L (136-145)
[2019-08-04 04:10] LABS: Magnesium 1.7 mg/dL (1.6-2.6)
[2019-08-04] MEDS: 0.9% Saline Lock 10 ML Syringe IV (05:35)
[2019-08-04] MEDS: Ondansetron 4 MG/2 ML Vial IV (05:35)
--- NOTE | 2019-08-04 05:45 | NURSING ---
pt had a emsis. pt cleaned up and bed linen changed. mouth suction. mouth care provided
--- NOTE | 2019-08-04 09:49 | PN_ITS ---
Patient Problems: Active and Suspected Problems Airway intubation performed without difficulty (Acute) Encounter for central line placement (Acute) Unresponsive (Acute) Respiratory failure (Acute) Hypothermia (Acute) Reason for Visit: Follow-up acute encephalopathy which has since resolved Subjective: Patient seen sleeping comfortably apparently has a cough which is productive of yellowish sputum. His acute encephalopathy has resolved. Plan is for [facility] to be transferred to [facility] facility pending insurance precertification. Objective: GENERAL: Cooperative HEENT: Atraumatic; EYES; Anicteric, Normal Conjunctiva NECK; supple, normal thyroid, RESPIRATORY: Diminished to auscultation CARDIOVASCULAR: Irregular S1-S2 GI: soft, normoactive bowel sounds, : No Renal angle tenderness; EXTREMITIES: No edema, no clubbing, MUSCULOSKELETAL: no muscle waisting NEURO: Awake no lateralizing signs SKIN: No Rash PSYCH; flat Vitals/I&O's: Vital Signs Temp Pulse Resp BP Pulse Ox 97.6 F L 113 H 20 H 131/59 H 96 08/04/19 02:30 08/04/19 03:03 08/04/19 02:30 08/04/19 02:30 08/04/19 02:30 Oxygen Flow Rate (L/min) 2 Oxygen Delivery Method Nasal Cannula Weight: 114.1 kg Body Mass Index (BMI) 37.4 Finger Stick Blood Glucose 159 Intake and Output for Last 24 Hours 08/02/19 08/03/19 08/04/19 23:59 23:59 23:59 Intake Total 2278.68 / 2278.68 1985.42 / 1985.42 Output Total 1974 1350 / 1350 250 / 250 Balance 303.68 / 303.68 635.42 / 635.42 -250 / -250 Microbiology Past 72 Hours 08/01/19 10:42 Urine Catheter - Fierro Urine Culture - Final Culture exhibits no growth. 08/01/19 10:35 Blood Culture (Wb) - Left Wrist Blood Culture - Preliminary No growth in 48 hours. 08/01/19 10:42 Blood Culture (Wb) - Anticubital Left Blood Culture - Preliminary No growth in 48 hours. Laboratory Results 08/03/19 11:30: Sodium 141, Potassium 3.5, Chloride 110 H, Carbon Dioxide 25.0, Anion Gap 6, BUN 25 H, Creatinine 1.28, Estim Creat Clear Calc 47.53, Est GFR (MDRD) Af Amer 70, Est GFR (MDRD) Non-Af 57 L, BUN/Creatinine Ratio 19.5, Glucose 173 H, Calcium 8.4 L 08/03/19 11:32: POC Glucose 167 H 08/03/19 16:12: POC Glucose 115 H 08/03/19 17:10: Sodium 142, Potassium 3.6, Chloride 110 H, Carbon Dioxide 26.0, Anion Gap 6, BUN 25 H, Creatinine 1.16, Estim Creat Clear Calc 52.44, Est GFR (MDRD) Af Amer 78, Est GFR (MDRD) Non-Af 64, BUN/Creatinine Ratio 21.6 H, Glucose 121 H, Calcium 8.4 L 08/03/19 21:26: POC Glucose 117 H 08/03/19 23:10: Sodium 143, Potassium 3.7, Chloride 111 H, Carbon Dioxide 25.0, Anion Gap 7, BUN 23 H, Creatinine 1.26, Estim Creat Clear Calc 48.28, Est GFR (MDRD) Af Amer 71, Est GFR (MDRD) Non-Af 59 L, BUN/Creatinine Ratio 18.3, Glucose 125 H, Calcium 8.5 08/04/19 03:20: Sodium 142, Potassium 3.8, Chloride 111 H, Carbon Dioxide 25.0, Anion Gap 6, BUN 24 H, Creatinine 1.26, Estim Creat Clear Calc 48.28, Est GFR (MDRD) Af Amer 53 L, Est GFR (MDRD) Non-Af 43 L, BUN/Creatinine Ratio 19.0, Glucose 120 H, Calcium 8.3 L 08/04/19 03:20: WBC 7.4, RBC 3.38 L, Hgb 9.6 L, Hct 30.7 L, MCV 90.8, MCH 28.4, MCHC 31.3 L, RDW Std Deviation 50.4 H, RDW Coeff of Suraj 15.2 H, Plt Count 277, MPV 9.6 08/04/19 03:20: Magnesium 1.7 Current Medications Clopidogrel Bisulfate (Plavix) 75 mg PO DAILY [facility] Last Admin: 08/03/19 11:40 Dose: Not Given Documented by: Enoxaparin Sodium (Lovenox) 120 mg SC BID [facility] Last Admin: 08/03/19 21:29 Dose: 120 mg Documented by: Glucagon () 1 mg IM .X1 PRN PRN Reason: Hypoglycemia Dextrose (Dextrose 10%-Water) 250 mls @ 999 mls/hr IV .Q16M PRN; Protocol PRN Reason: HYPOGLYCEMIA Last Infusion: 08/02/19 15:12 Dose: Infused Documented by: Insulin Human Lispro (Humalog Kwikpen (Bkc)) 0 unit SC [facility]; Protocol Last Admin: 08/04/19 06:14 Dose: Not Given Documented by: Ondansetron HCl (Zofran) 4 mg IV Q8H PRN PRN PRN Reason: NAUSEA/VOMITING Last Admin: 08/04/19 05:35 Dose: 4 mg Documented by: Pantoprazole Sodium (Protonix) 20 mg PO DAILY [facility] Last Admin: 08/03/19 11:40 Dose: Not Given Documented by: Sodium Chloride () 10 - 40 ml IV UD PRN PRN Reason: Multilumen/Nava Flush Last Admin: 08/04/19 05:35 Dose: 30 ml Documented by: Sodium Chloride (0.9% Nacl (Sterile) Posiflush) 10 - 40 ml IV UD PRN PRN Reason: Port access or dressing change Medical Necessity - Tobacco Use Smoking Status: Former smoker Assessment/Plan All Active Problems Airway intubation performed without difficulty (Acute) Encounter for central line placement (Acute) Unresponsive (Acute) Respiratory failure (Acute) Hypothermia (Acute) Patient is an 79-year-old lady resident of an [facility] brought seen with decreased level of sensorium intubated in the ED and admitted to the intensive care unit. 1. Acute encephalopathy ?Of undetermined etiology. CT of the head obtained in the emergency department could not exclude acute CVA MRI has subsequently been ordered for further evaluation after discussion with Dr. Alfaro ?08/03/2019 MRI obtained was negative for acute CVA 2. Acute hypoxic respiratory failure ?Patient was intubated in the ED prior to his admission weaned off the vent on the morning of 08/02/2019. ?08/03/2019 patient currently on room air 3. Suspected sepsis from infected left foot cellulitis with left big toe osteomyelitis ? Patient with hypotension as well as hypothermia. Lactic acid was 3.1. Patient had recently completed antibiotic therapy. Patient was resuscitated wi th aggressive IV fluids repeat lactic acid level back to 1.6. ?08/03/2019; blood cultures have remained negative to date 4. Diabetes mellitus type II ~Complications including diabetic nephropathy, patient's oral hypoglycemics held. Placed on Accu-Cheks a.c. and at bedtime and covered with sliding scale insulin 5. Recent admission with left foot cellulitis as well as left big toe osteomyelitis Patient was treated with cefazolin infectious disease recommended p.o. doxycycline for 2 to 4 weeks following discharge 6. Chronic kidney disease stage III Secondary to diabetic nephropathy. Patient kidney function close to baseline 7. Coronary artery disease ?With previous CABG and stent placement. Stent placement.catheterization performed on 07/23/2019 demonstrated patent grafts except for an occluded SVG to RCA which was apparently old. 8. Paroxysmal atrial fibrillation/flutter ?Patient was started on amiodarone on discharge resumed on admission 9. History of pulmonary embolism ?Patient is on Eliquis held on admission managed with therapeutic Lovenox 10. Peripheral vascular disease ?Patient had a recent ELOY which demonstrated bilateral moderately severe atrial occlusive disease. Patient was apparently scheduled to follow-up with Dr. Alfaro for angiogram 11. GERD - PPI 12. Dyslipidemia ?patient is on Zetia resume 13. Essential hypertension ?Patient antihypertensive regimen placed on hold in view of patient presented with hypotension 14. DVT prophylaxis ?Patient is on systemic anticoagulation 15 Physical deconditioning -plan is for [facility] to be transferred to [facility] facility pending insurance precert Code Visit Inpatient E&M: 10576 Subs Hosp L2
[2019-08-04] MEDS: dilTIAZem 25 MG/5 ML Vial 20 MG IV BOLUS (11:06)
[2019-08-04] MEDS: Enoxaparin 120 MG/0.8 ML Syringe SC ×2 (11:06→22:52)
[2019-08-04 11:20] LABS: Bedside Glucose 140 mg/dL (70-110)
--- NOTE | 2019-08-04 13:55 | CASEMGMT ---
PITER checked in with patient's daughter from [place]. She said that family is going to talk with an defense attorney and [facility] tomorrow. They may consider a facility in [place] now. She said they will have a decision tomorrow. PITER let her know that the sooner the better. Chelsie MANCILLA MSW
--- NOTE | 2019-08-04 18:34 | NURSING ---
per daughter and in room this is not patients baseline. both describe the patient as toileting himself, carrying on conversation with clear speech. this RN explained the patient has been asleep most of day and speech seems garbled. this RN spoke with doctor and he is aware.
[2019-08-04] MEDS: Metoprolol Tartrate 5 MG/5 ML Vial IV (18:49)
[2019-08-04 18:55] LABS: Bedside Glucose 133 mg/dL (70-110)
[2019-08-04 23:35] LABS: Bedside Glucose 147 mg/dL (70-110)
[2019-08-05] VITALS (13 sets, daily range): BP systolic 115–138; BP diastolic 56–78; PULSE 87–125; RESP 16–20; TEMP 36.2–37.1; O2SAT 89–100
[2019-08-05] MEDS: 0.9% Saline Lock 10 ML Syringe IV ×2 (05:19→22:13)
[2019-08-05 05:27] LABS: Hematocrit 31.1 % (40-54); Hemoglobin 9.6 g/dL (13.0-16.5); Mean Corp Hgb Conc 30.9 g/dL (32-36); Mean Corpuscular Hgb 28.7 pg (27.0-32.0); Mean Corpuscular Volume 93.1 fL (80-94); Mean Platelet Vol. 9.3 fl (6.2-12.0); Platelet Count 285 K/mm3 (150-450); RBC Distribution Width CV 15.3 % (11.6-14.6); RBC Distribution Width SD 52.3 fl (35.1-43.9); Red Blood Count 3.34 M/mm3 (4.6-6.2); White Blood Count 6.1 K/mm3 (4.4-11.0)
[2019-08-05 06:46] LABS: Bedside Glucose 122 mg/dL (70-110)
[2019-08-05] MEDS: Enoxaparin 120 MG/0.8 ML Syringe SC ×2 (10:06→22:06)
[2019-08-05 11:50] LABS: Bedside Glucose 151 mg/dL (70-110)
--- NOTE | 2019-08-05 13:00 | RAD_ITS ---
STUDY: SWALLOWING STUDY REASON FOR EXAM: Male, 79 years old. Dysphagia TECHNIQUE: The examination was performed with Speech Pathology in attendance. Under fluoroscopic observation, the patient ingested thin barium, thick barium, barium pudding, and barium coated cracker. FLUOROSCOPY TIME: 2:09 minutes/seconds. 2703 spot films were obtained. RADIOLOGIST INVOLVEMENT: Radiologist was present and providing direct supervision. COMPARISON: None. FINDINGS: The following was observed during swallowing of the various mixtures of barium: Thin Barium: Silent aspiration with ingestion of thin liquids. This does not improve with the chin tuck maneuver. Thick Barium: Penetration with ingestion of nectar thickened liquids. Barium Pudding: There was no evidence of aspiration or laryngeal penetration. Barium Coated Cracker: There was no evidence of aspiration or laryngeal penetration. RAD/Swallowing Function w/Video IMPRESSION: Silent aspiration with ingestion of thin liquids. Penetration with ingestion of nectar thickened The swallow study findings were discussed with the patient by the speech pathologist at the conclusion of the examination. Please see speech pathology report for more information and recommendations. Electronically Signed: Wayne Wang, at 13:32 EST , Service support ,
--- NOTE | 2019-08-05 13:58 | PN_ITS ---
<Carolyn Richardson - Last Filed: 08/05/19 14:26> Patient Problems: Active and Suspected Problems Airway intubation performed without difficulty (Acute) Encounter for central line placement (Acute) Unresponsive (Acute) Respiratory failure (Acute) Hypothermia (Acute) Subjective: Patient seen and examined. More alert this morning. Still remains confused. Denies current complaints. - Physical Exam Vitals/I&O's: Vital Signs Temp Pulse Resp BP Pulse Ox 98.7 F 109 H 18 138/78 H 95 08/05/19 09:35 08/05/19 09:35 08/05/19 09:35 08/05/19 09:35 08/05/19 09:35 Oxygen Flow Rate (L/min) 2 Oxygen Delivery Method Nasal Cannula Weight: 247 lb 9.266 oz Body Mass Index (BMI) 37.4 Finger Stick Blood Glucose 159 Intake and Output for Last 24 Hours 08/03/19 08/04/19 08/05/19 23:59 23:59 23:59 Intake Total 1984.42 / 1984.42 0 / 0 0 / 0 Output Total 1350 / 1350 1150 / 1150 250 / 250 Balance 635.42 / 635.42 -1150 / -1150 -250 / -250 General: Alert, Cooperative HEENT: Atraumatic, PERRLA, EOMI, Normocephalic Neck: Supple, No JVD, Negative Carotid Bruits Lungs: Clear to auscultation, Diminished Cardiovascular: Regular rate, Regular Rhythm, Normal S1, Normal S2 Abdomen: Bowel Sounds Present, Soft, Non Tender, Non-Distended Extremities: No clubbing, No cyanosis, No edema, Capillary Refill Less than 3 Seconds Skin: No rashes, No breakdown, - - Left foot dressing clean dry and intact. Musculoskeletal: No Tenderness to Palpation of Joints or Extremities Neurological: Cranial nerves II-XII grossly intact, Neuro grossly intact Psych/Mental Status: Normal Affect, Appropriate Microbiology Past 72 Hours 08/01/19 10:42 Urine Catheter - Fierro Urine Culture - Final Culture exhibits no growth. 08/01/19 10:35 Blood Culture (Wb) - Left Wrist Blood Culture - Preliminary No growth in 48 hours. 08/01/19 10:42 Blood Culture (Wb) - Anticubital Left Blood Culture - Preliminary No growth in 48 hours. Laboratory Results 08/04/19 16:29: POC Glucose 133 H 08/04/19 22:50: POC Glucose 147 H 08/05/19 05:05: WBC 6.1, RBC 3.34 L, Hgb 9.6 L, Hct 31.1 L, MCV 93.1, MCH 28.7, MCHC 30.9 L, RDW Std Deviation 52.3 H, RDW Coeff of Suraj 15.3 H, Plt Count 285, MPV 9.3 08/05/19 06:36: POC Glucose 122 H 08/05/19 11:42: POC Glucose 151 H Current Medications Clopidogrel Bisulfate (Plavix) 75 mg PO DAILY [facility] Last Admin: 08/05/19 09:55 Dose: Not Given Documented by: Enoxaparin Sodium (Lovenox) 120 mg SC BID [facility] Last Admin: 08/05/19 10:06 Dose: 120 mg Documented by: Glucagon () 1 mg IM .X1 PRN PRN Reason: Hypoglycemia Dextrose (Dextrose 10%-Water) 250 mls @ 999 mls/hr IV .Q16M PRN; Protocol PRN Reason: HYPOGLYCEMIA Last Infusion: 08/02/19 15:12 Dose: Infused Documented by: Insulin Human Lispro (Humalog Kwikpen (Bkc)) 0 unit SC ACHS [facility]; Protocol Last Admin: 08/05/19 11:47 Dose: Not Given Documented by: Metoprolol Tartrate (Lopressor (Beta Deborah)) 5 mg IV Q6 PRN PRN Reason: HR>120 Last Admin: 08/04/19 18:49 Dose: 5 mg Documented by: Ondansetron HCl (Zofran) 4 mg IV Q8H PRN PRN PRN Reason: NAUSEA/VOMITING Last Admin: 08/04/19 05:35 Dose: 4 mg Documented by: Pantoprazole Sodium (Protonix) 20 mg PO DAILY [facility] Last Admin: 08/05/19 09:55 Dose: Not Given Documented by: Sodium Chloride () 10 - 40 ml IV UD PRN PRN Reason: Multilumen/Nava Flush Last Admin: 08/05/19 05:19 Dose: 20 ml Documented by: Sodium Chloride (0.9% Nacl (Sterile) Posiflush) 10 - 40 ml IV UD PRN PRN Reason: Port access or dressing change Medical Necessity - Tobacco Use Smoking Status: Former smoker Assessment/Plan All Active Problems Airway intubation performed without difficulty (Acute) Encounter for central line placement (Acute) Unresponsive (Acute) Respiratory failure (Acute) Hypothermia (Acute) 1. Acute encephalopathy, suspect metabolic secondary to acute hypoxic respiratory failure-MRI of brain shows chronic changes. No acute process. Chest x-ray on admission showed questionable small effusion at the right lung base, repeat chest x-ray with no change. Afebrile. No leukocytosis. Encephalopathy improving. Patient initially intubated on admission, extubated on August 02. Continue supplemental oxygen to maintain O2 sat above 90%. Speech therapy following, plan for swallow study. 2. Recent left foot cellulitis with left great toe osteomyelitis- status post left foot partial first ray amputation 07/20/[address] Parker. No evidence of active infection. Completed course of doxycycline. Podiatry following. Plan f or suture removal 08/06/2019. 3. CAD status post stents x6- Echocardiogram 07/21/2019 demonstrated EF 65%, stage II diastolic dysfunction, mild mitral valve insufficiency. Continue aspirin, Plavix, beta-deborah. Cardiac catheterization 07/23/2019 demonstrated nonobstructive coronary arteries. Continue outpatient follow-up with Dr. Garza. 4. Paroxysmal atrial flutter, history of atrial fibrillation-on Eliquis, metoprolol at baseline however unable to take oral at this time. Patient had previous plans for outpatient cardioversion with Dr. Garza. Continue PRN metoprolol and therapeutic Lovenox. Recently placed on amiodarone by cardiology at recent discharge however it is unclear if patient has been taking. 5. Peripheral vascular disease-recent ELOY demonstrated moderate to severe pollo rial occlusive disease bilaterally. Following with Dr. Menard for angiogram as outpatient. 6. Stage III chronic kidney disease-stable, trend BMP. 7. History of PE-on Eliquis which is currently on hold, continue Lovenox. 8. Type 2 diabetes mellitus-continue glipizide. 9. Hypertension-stable. 10. Hyperlipidemia-continue Zetia regimen. 11. GERD- continue PPI. 12. [place]-continue BiPAP nightly and with naps. DVT prophylaxis-Lovenox This patient was seen by EULA Woodward under the supervision of Dr. Britton. <Les Britton - Last Filed: 08/05/19 15:05> Subjective: Patient was drowsy/lethargic in the morning as per nursing staff. When I saw around 10 AM patient is more awake and alert after physical therapist put hearing aid. - Physical Exam Vitals/I&O's: Vital Signs Temp Pulse Resp BP Pulse Ox 97.5 F L 114 H 16 119/73 99 08/05/19 13:45 08/05/19 13:45 08/05/19 13:45 08/05/19 13:45 08/05/19 13:45 Oxygen Flow Rate (L/min) 6 Oxygen Delivery Method Nasal Cannula Weight: 247 lb 9.266 oz Body Mass Index (BMI) 37.4 Finger Stick Blood Glucose 159 Intake and Output for Last 24 Hours 08/03/19 08/04/19 08/05/19 23:59 23:59 23:59 Intake Total 1984.42 / 1984.42 0 / 0 0 / 0 Output Total 1350 / 1350 1150 / 1150 250 / 250 Balance 635.42 / 635.42 -1150 / -1150 -250 / -250 General: Alert, Oriented x3, Cooperative HEENT: Atraumatic, PERRLA, EOMI, Normocephalic Neck: Supple, No JVD, Negative Carotid Bruits Lungs: Clear to auscultation, No rhonchi, No wheeze, No rales, Diminished Cardiovascular: Regular rate, Regular Rhythm, Normal S1, Normal S2, No murmurs Abdomen: Bowel Sounds Present, Soft, Non Tender, Non-Distended Extremities: No edema, Capillary Refill Less than 3 Seconds Skin: No rashes, No breakdown, - Musculoskeletal: No Tenderness to Palpation of Joints or Extremities, Arthritic Changes Neurological: Cranial nerves II-XII grossly intact, Deep Tendon Reflexes 2+/4 and Symmetrical, Neuro grossly intact Psych/Mental Status: Normal Affect, Appropriate Microbiology Past 72 Hours 08/01/19 10:42 Urine Catheter - Fierro Urine Culture - Final Culture exhibits no growth. 08/01/19 10:35 Blood Culture (Wb) - Left Wrist Blood Culture - Preliminary No growth in 48 hours. 08/01/19 10:42 Blood Culture (Wb) - Anticubital Left Blood Culture - Preliminary No growth in 48 hours. Laboratory Results 08/04/19 16:29: POC Glucose 133 H 08/04/19 22:50: POC Glucose 147 H 08/05/19 05:05: WBC 6.1, RBC 3.34 L, Hgb 9.6 L, Hct 31.1 L, MCV 93.1, MCH 28.7, MCHC 30.9 L, RDW Std Deviation 52.3 H, RDW Coeff of Suraj 15.3 H, Plt Count 285, MPV 9.3 08/05/19 06:36: POC Glucose 122 H 08/05/19 11:42: POC Glucose 151 H Current Medications Clopidogrel Bisulfate (Plavix) 75 mg PO DAILY [facility] Last Admin: 08/05/19 09:55 Dose: Not Given Documented by: Enoxaparin Sodium (Lovenox) 120 mg SC BID [facility] Last Admin: 08/05/19 10:06 Dose: 120 mg Documented by: Glucagon () 1 mg IM .X1 PRN PRN Reason: Hypoglycemia Dextrose (Dextrose 10%-Water) 250 mls @ 999 mls/hr IV .Q16M PRN; Protocol PRN Reason: HYPOGLYCEMIA Last Infusion: 08/02/19 15:12 Dose: Infused Documented by: Insulin Human Lispro (Humalog Kwikpen (Bkc)) 0 unit SC ACHS [facility]; Protocol Last Admin: 08/05/19 11:47 Dose: Not Given Documented by: Metoprolol Tartrate (Lopressor (Beta Deborah)) 5 mg IV Q6 PRN PRN Reason: HR>120 Last Admin: 08/04/19 18:49 Dose: 5 mg Documented by: Ondansetron HCl (Zofran) 4 mg IV Q8H PRN PRN PRN Reason: NAUSEA/VOMITING Last Admin: 08/04/19 05:35 Dose: 4 mg Documented by: Pantoprazole Sodium (Protonix) 20 mg PO DAILY [facility] Last Admin: 08/05/19 09:55 Dose: Not Given Documented by: Sodium Chloride () 10 - 40 ml IV UD PRN PRN Reason: Multilumen/Nava Flush Last Admin: 08/05/19 05:19 Dose: 20 ml Documented by: Sodium Chloride (0.9% Nacl (Sterile) Posiflush) 10 - 40 ml IV UD PRN PRN Reason: Port access or dressing change Assessment/Plan This patient was seen in conjunction with ENTERTAINMENT CENTRE MANAGERCarolyn. I have independently interviewed and examined the patient and reviewed pertinent history, examination findings, laboratory and plan of management. I have reviewed the note and agree with the documented findings with the few additional points. In brief, patient is admitted for acute encephalopathy most probably metabolic secondary to acute hypoxic respiratory failure. MRI brain was done and did not show any acute change. Repeat chest x-ray showed no change. Patient was extubated on August 02. Patient failed initial nursing swallow screening test therefore speech therapist will do modified barium swallow. Left foot cellulitis with left great toe osteomyelitis recent status post left foot partial first ray amputation on 07/20/[address] Parker. Patient completed antibiotic. coronary artery status post stents, paroxysmal atrial flutter/A. fib on Eliquis and peripheral vascular disease: Patient had echo on July 21, 2019 which showed EF 65% with a stage II diastolic dysfunction. Cardiac cath on 07/23 showed nonobstructive coronary artery disease. Other chronic comorbidities include stage III CKD, history of PE, type 2 diabetes mellitus, hypertension, dyslipidemia, GERD and sleep apnea. Multiple comorbidities I have discussed my assessment with Carolyn RINCON and orders have been reviewed. Code Visit Inpatient E&M: 12342 Subs Hosp L2
--- NOTE | 2019-08-05 14:44 | CHAPLAIN ---
Type of Pastoral Visit ___ Initial Visit _x__ Follow-up Visit ___ On-call Visit ___ General Patient Visit ___ Spiritual Assessment ___ Family Conference ___ Bereavement ___ Rapid Response ___ Code Blue ___ Other (describe below) Pastoral Care Referral From _x__ Patient ___ Family ___ Nurse ___ Physician ___ Gold Leaf Printer ___ Aircraft Cabin Cleaner ___ Other (describe below) Sacrament/Intervention _x__ Active listening ___ Anointing ___ Amish ___ Bereavement ___ Communion _x__ Prema exploration ___ ___ Life review _x__ Prayer ___ Reconciliation ___ Sacrament of Sick _x__ Supportive presence ___ Wedding ___ Other (describe below) Pastoral Comments
--- NOTE | 2019-08-05 15:03 | CASEMGMT ---
SW is still waiting on family to give SW their nursing homes of choice. Chelsie MANCILLA SPIDER ASSEMBLER
--- NOTE | 2019-08-05 16:12 | SP.MBSS_ITS ---
PRIMARY / SECONDARY DIAGNOSIS: dysphagia (R13.12) REFERRING PHYSICIAN: Dr. Britton CURRENT DIET: NPO DENTITION: edentulous upper/ natural teeth lower MENTAL STATUS: Adequate for assessment this date RESPIRATORY STATUS: O2 via 2L/min via nasal canula PREVIOUS MODIFIED BARIUM SWALLOW STUDY: N/A ?REASON FOR REFERRAL: : Concerns for silent aspiration ? 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 The patient presented to [facility] ED via EMS from [facility] after being found unresponsive. The patient was intubated on admission 08/01/2019 at 1002; extubated 08/02/2019 at 0645. ? STUDY FINDINGS: Patient participated in a Modified Barium Swallow (MBS) study on 08/05/2019. Dr. Wang was the radiologist present for this evaluation. This study was recorded in the lateral view and images were sent to PACs for storage. The following consistencies were presented to this patient for analysis of oropharyngeal swallow function: thin liquid, nectar thick, honey thick, pudding, and a regular textured, Chacha Doone cookie. Results of the MBS are as follows: ? ? ? PENETRATION / ASPIRATION SCALE (BOOTH): 1 = does not enter airway 2 = enters airway/above vocal folds/ejected 3 = enters airway/above vocal folds/not ejected 4 = enters airway/contacts vocal folds/ejected 5 = enters airway/contacts vocal folds/not ejected 6 = enters airway/below vocal folds/ejected 7 = enters airway/below vocal folds/not ejected despite effort 8 = enters airway/below vocal folds/no effort ? PENETRATION / ASPIRATION SCALE (SCORE): 1) Thin liquid via teaspoon = 1 2) Thin liquid via teaspoon = 1 3) Thin liquid via small single sip from cup = 8 4) Thin liquid via large single sip from cup = 8 5) [place] thick liquid via small single sip from cup =1 6) [place] thick liquid via large single sip from cup = 2 7) Honey thick liquid via small single sip from cup= 1 8) Honey thick via large single sip from cup =1 9) Pudding = 1 10) Cookie = 1 11) [place] thick liquid via straw = 3 12) Thin liquid via cup with chin tuck = 8 ? IMPRESSION: Moderate oropharyngeal dysphagia (R13.12) ? ORAL PHASE CHARACTERIZED BY: LABIAL SEAL: no labial escape TONGUE CONTROL DURING BOLUS MANIPULATION: posterior escape of less than half of bolus BOLUS PREPARATION / MASTICATION: slow prolonged chewing/mashing with complete recollection BOLUS TRANSPORT / LINGUAL MOTION: slowed tongue motion ORAL RESIDUE: residue collection on oral structures PHARYNGEAL PHASE CHARACTERIZED BY: ?INITIATION OF PHARYNGEAL SWALLOW: bolus head in valleculae at first hyoid excursion SOFT PALATE ELEVATION: no bolus between soft palate and pharyngeal wall LARYNGEAL ELEVATION: minimal superior movement of thyroid cartilage/minimal approximation of arytenoids cartilage to epiglottic petiole ANTERIOR HYOID EXCURSION: partial anterior movement EPIGLOTTIC MOVEMENT: complete epiglottic inversion LARYNGEAL VESTIBULE CLOSURE AT HEIGHT OF SWALLOW: incomplete laryngeal vestibule closure with narrow column of air/contrast in laryngeal vestibule PHARYNGEAL STRIPPING WAVE: pharyngeal stripping wave present / complete PHARYNGOESOPHAGEAL SEGMENT OPENING: partial distension and partial duration; partial obstruction of flow TONGUE BASE RETRACTION:narrow column of contrast between tongue base and posterior pharyngeal wall PHARYNGEAL RESIDUE: collection of residue within or on pharyngeal structures ESOPHAGEAL PHASE CHARACTERIZED BY: ESOPHAGEAL BOLUS CLEARANCE IN THE UPRIGHT POSITION: could not view DIET TEXTURE RECOMMENDATIONS: Will recommend a puree textured, nectar liquid diet.? ? COMPENSATORY STRATEGIES RECOMMENDED: Will recommend supervised meals, no straws, only eat/feed when alert, upright 90 degrees during PO intake, reduced bolus volume, seated upright at 90 degrees during PO intake, and remain upright for 30-60 minutes post meal (GERD precaution). INTERPRETATION OF RESULTS: Patient presents with moderate oropharyngeal dysphagia (R13.12). Oral phase primarily marked by mastication inefficiency with solids (Chacha Doone shortbread cookie). Patient is edentulous contributing to mastication difficulty. Patient reported no particular food avoidance previously and when wearing upper dentures. Pharyngeal phase primarily marked by delayed pharyngeal swallow onset timing resulting in spillage to the valleculae upon initial hyoid excursion. Reduced closure of the airway during deglutition attributed to reduced laryngeal elevation and anterior hyoid excursion resulting in poor laryngeal vestibule closure / pressure. Copious amounts of residue remained in the valleculae and above PES. Patient with wet vocal quality and occasional hacking in attempt to clear residue intermittently during evaluation. Aspiration was found during trials of larger and sequential sips of thin liquid which was silent in nature. Chin tuck ineffective at protecting the airway. Penetration of nectar thick liquid noted only during larger sips. Penetration/aspiration ameliorated with nectar thick liquids in smaller bolus volumes. Patient is considered at high risk for aspiration particularly with recent fluctuation in alertness. RECOMMENDATIONS: Patient requires intensive skilled speech-language intervention targeting continued diet texture management, training and implementation of recommended compensatory strategies, training and implementation of recommended oropharyngeal strengthening exercises to facilitate improved swallow function, training, implementation, and patient education regarding implementation of the FFWP, and patient and caregiver training targeting meal preparation / thickened liquid preparation. Would strongly discourage advancement past nectar thickened liquids without completion of a repeat modified barium swallow study due to the extent of aspirate identified that was SILENT in nature. ADDITIONAL COMMENTS/RECOMMENDATIONS:? ?? Results and recommendations were discussed with the patient immediately following MBS completion, with the patient verbalizing understanding and agreement with all recommendations and education provided. ? ? IMAGE COUNT: [id number] Sofi Chilel MA, CCC-WEBSITE PROGRAMMER Speech Language Pathologist [facility] [address] [place] [address] [email or web address] [phone]
[2019-08-05 16:56] LABS: Bedside Glucose 127 mg/dL (70-110)
--- NOTE | 2019-08-05 17:44 | NURSING ---
Report received from Arjun Russo RN. This RN will be taking over care for pt at this time.
[2019-08-05] MEDS: Insulin Lispro 100 UNIT/ML INSULN.PEN SC (22:08)
[2019-08-05] MEDS: Metoprolol Tartrate 5 MG/5 ML Vial IV (22:12)
[2019-08-05 22:35] LABS: Bedside Glucose 153 mg/dL (70-110)
[2019-08-06] VITALS (13 sets, daily range): BP systolic 97–144; BP diastolic 59–78; PULSE 85–108; RESP 17–20; TEMP 36.4–36.8; O2SAT 90–99
[2019-08-06] MEDS: 0.9% Saline Lock 10 ML Syringe IV (04:12)
[2019-08-06 04:21] LABS: Hematocrit 30.5 % (40-54); Hemoglobin 9.3 g/dL (13.0-16.5); Mean Corp Hgb Conc 30.5 g/dL (32-36); Mean Corpuscular Hgb 28.8 pg (27.0-32.0); Mean Corpuscular Volume 94.4 fL (80-94); Mean Platelet Vol. 9.1 fl (6.2-12.0); Platelet Count 274 K/mm3 (150-450); RBC Distribution Width CV 15.5 % (11.6-14.6); RBC Distribution Width SD 53.2 fl (35.1-43.9); Red Blood Count 3.23 M/mm3 (4.6-6.2); White Blood Count 5.4 K/mm3 (4.4-11.0)
[2019-08-06 04:33] LABS: Scan Indicated on CBC? Y/N NO
[2019-08-06 06:50] LABS: Bedside Glucose 132 mg/dL (70-110)
--- NOTE | 2019-08-06 08:53 | CASEMGMT ---
PITER spoke with patient's family this am. They decided to go with [facility] in [place]. PITER faxed referral to [facility] and also called leaving a message. Chelsie MANCILLA MSW
[2019-08-06] MEDS: Enoxaparin 120 MG/0.8 ML Syringe SC ×2 (10:33→20:58)
[2019-08-06] MEDS: Clopidogrel Bisulfate 75 MG Tablet PO (10:33)
[2019-08-06] MEDS: Pantoprazole Sodium 20 MG Tablet PO (10:33)
[2019-08-06] MEDS: Metoprolol Tartrate 50 MG Tablet PO (10:42)
[2019-08-06] MEDS: Furosemide 80 MG Tablet PO (10:42)
--- NOTE | 2019-08-06 11:37 | RAD_ITS ---
STUDY: X-RAY - LEFT FOOT CLINICAL: Male, 79 years old. POST LEFT FOOT PARTIAL AMPUTATION ON JULY 20. TECHNIQUE: 3 view(s) of the foot. COMPARISON: 07/20/2019, MRI 07/16/2019. FINDINGS: Bones are demineralized. Status post amputation of the first digit at the mid metatarsal shaft. There is no evidence of fracture or dislocation. There is marked lucency of the third middle and distal phalanges, consistent with previously reported osteomyelitis. No additional destructive bone changes are demonstrated. 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 The joint space is otherwise well maintained. Soft tissues are otherwise unremarkable. No significant change compared to the prior study. RAD/Foot min 3 Views IMPRESSION: 1. Persistent lucency of the third middle and distal phalanges, suspicious for osteomyelitis. 2. 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 3. Status post amputation of the first digit at the metatarsal level. Electronically Signed: Sharon Stoddard MD at 17:04 EST Tel , Service support ,
--- NOTE | 2019-08-06 11:42 | PN.ORTHO_ITS ---
Patient Problems: Active and Suspected Problems Airway intubation performed without difficulty (Acute) Encounter for central line placement (Acute) Unresponsive (Acute) Respiratory failure (Acute) Hypothermia (Acute) Subjective: Patient seen at bedside resting comfortably. Patient denies any pain to his left foot. Patient denies any acute overnight events. Patient states that overall he is feeling much better since admission. Patient's is present at bedside during entire visit. Patient states that he is kept the dressing clean, dry, intact to his left foot. Patient has not placed any weight on his left foot. Patient denies any acute symptoms of his left lower extremity at this time. Currently, patient denies fever, chills, nausea, vomiting, shortness of breath, chest pain. Patient denies left calf pain. Objective: Left lower extremity exam: Dermatological: Surgical site on left foot is well coapted with sutures intact. Of the surgical site, there is no fluctuance, no crepitus, no malodor, no drainage, no purulence. There is no edema or periwound erythema. There are no signs of dehiscence noted. No signs of acute clinical infection noted. Surgical site appears healed at this time. No other ulcerations or open lesions noted of the left lower extremity. Musculoskeletal strength is 5 out of 5 of the left lower extremity crural compartments Neurological: Gross and protective sensation are diminished up into the tibial tuberosity left lower extremity Vascular: Dorsalis pedis and posterior tibial pulses are weakly palpable. Capillary fill time is less than 4 seconds to remaining digits. Temperature gradient is within normal limits. Minimal nonpitting edema noted of the entirety of the left lower extremity No pain of the left foot/ankle/calf during entire examination - Physical Exam Vitals/I&O's: Vital Signs Temp Pulse Resp BP Pulse Ox 97.8 F 98 18 144/61 H 97 08/06/19 10:14 08/06/19 10:42 08/06/19 10:14 08/06/19 10:42 08/06/19 10:14 Oxygen Flow Rate (L/min) 2 Oxygen Delivery Method Nasal Cannula Weight: 113.1 kg Body Mass Index (BMI) 37.4 Finger Stick Blood Glucose 159 Intake and Output for Last 24 Hours 08/04/19 08/05/19 08/06/19 23:59 23:59 23:59 Intake Total 0 / 0 250 / 250 Output Total 1150 / 1150 1150 / 1150 200 / 200 Balance -1150 / -1150 -900 / -900 -200 / -200 General: Alert, Oriented x3, Cooperative, No apparent distress HEENT: Atraumatic Neck: Supple Abdomen: Bowel Sounds Present, Soft, Non Tender, Non-Distended Extremities: No Calf Tenderness, Diminished Peripheral Pulses Skin: Incision - healed at this time to the left foot with no signs of acute infection Psych/Mental Status: Alert and oriented to time, place, person, mood and affect Microbiology Past 72 Hours 08/01/19 10:35 Blood Culture (Wb) - Left Wrist Blood Culture - Final No growth in 5 days. 08/01/19 10:42 Blood Culture (Wb) - Anticubital Left Blood Culture - Final No growth in 5 days. 08/01/19 10:42 Urine Catheter - Fierro Urine Culture - Final Culture exhibits no growth. Laboratory Results 08/05/19 11:42: POC Glucose 151 H 08/05/19 16:48: POC Glucose 127 H 08/05/19 22:02: POC Glucose 153 H 08/06/19 04:10: WBC 5.4, RBC 3.23 L, Hgb 9.3 L, Hct 30.5 L, MCV 94.4 H, MCH 28.8, MCHC 30.5 L, RDW Std Deviation 53.2 H, RDW Coeff of Suraj 15.5 H, Plt Count 274, MPV 9.1 08/06/19 06:43: POC Glucose 132 H Current Medications Clopidogrel Bisulfate (Plavix) 75 mg PO DAILY [facility] Last Admin: 08/06/19 10:33 Dose: 75 mg Documented by: Enoxaparin Sodium (Lovenox) 120 mg SC BID [facility] Last Admin: 08/06/19 10:33 Dose: 120 mg Documented by: Furosemide (Lasix) 80 mg PO DAILY [facility] Last Admin: 08/06/19 10:42 Dose: 80 mg Documented by: Glucagon () 1 mg IM .X1 PRN PRN Reason: Hypoglycemia Dextrose (Dextrose 10%-Water) 250 mls @ 999 mls/hr IV .Q16M PRN; Protocol PRN Reason: HYPOGLYCEMIA Last Infusion: 08/02/19 15:12 Dose: Infused Documented by: Insulin Human Lispro (Humalog Kwhammadpen (Bkc)) 0 unit SC [facility]; Protocol Last Admin: 08/06/19 06:45 Dose: Not Given Documented by: Metoprolol Tartrate (Lopressor (Beta Deborah)) 50 mg PO 0800 [facility] Last Admin: 08/06/19 10:42 Dose: 50 mg Documented by: Metoprolol Tartrate (Lopressor (Beta Deborah)) 25 mg PO 2000 [facility] Ondansetron HCl (Zofran) 4 mg IV Q8H PRN PRN PRN Reason: NAUSEA/VOMITING Last Admin: 08/04/19 05:35 Dose: 4 mg Documented by: Pantoprazole Sodium (Protonix) 20 mg PO DAILY [facility] Last Admin: 08/06/19 10:33 Dose: 20 mg Documented by: Sodium Chloride () 10 - 40 ml IV UD PRN PRN Reason: Multilumen/Nava Flush Last Admin: 08/06/19 04:12 Dose: 40 ml Documented by: Sodium Chloride (0.9% Nacl (Sterile) Posiflush) 10 - 40 ml IV UD PRN PRN Reason: Port access or dressing change Medical Necessity - Tobacco Use Smoking Status: Former smoker Assessment/Plan All Active Problems Airway intubation performed without difficulty (Acute) Encounter for central line placement (Acute) Unresponsive (Acute) Respiratory failure (Acute) Hypothermia (Acute) Plan: Patient chart reviewed and patient evaluated. At this time, full discussion was had with the patient and his about his current clinical condition. After verbal consent was obtained, the sutures from the left foot surgical site were removed in their entirety. Patient tolerated procedure well without complaints or complications. The surgical site is healed at this time and is not exhibiting any signs of acute clinical infection. I do believe that the left foot surgical site is not the source of his current state. Surgical site was then dressed with Betadine, 4 x 4 gauze, wrapped with Kerlix. The left foot and ankle were then wrapped with an Grady bandage. At this time, from my perspective, it is okay for the patient to weight-bear as tolerated to the left foot in a postoperative shoe. Postoperative shoe was ordered today. I recommend to keep the dressing clean, dry, intact to the left foot until August 09. At that time, dressing can be changed daily with Betadine, 4 x 4 gauze, wrapped with Kerlix and an Grady bandage. Order placed for dressing changes to begin August 09. I would to have the patient follow-up with me in the office on August 13 in [place] for further postoperative care. Patient displayed verbal understanding to all written and oral instructions at this time. Patient is agreeable to the current treatment plan at this time. All of his questions were answered to his satisfaction and all of his concerns were addressed. I will continue to see the patient on an outpatient basis at this time. If there are any questions, concerns, please do not hesitate to reach out to me. Thank you very much for allowing me to take part in the care of your patient. Code Visit Inpatient E&M: 39277 Subs Hosp L2
[2019-08-06 12:06] LABS: Bedside Glucose 203 mg/dL (70-110)
--- NOTE | 2019-08-06 12:59 | PN_ITS ---
<Carolyn Richardson - Last Filed: 08/06/19 13:07> Patient Problems: Active and Suspected Problems Airway intubation performed without difficulty (Acute) Encounter for central line placement (Acute) Unresponsive (Acute) Respiratory failure (Acute) Hypothermia (Acute) Subjective: Patient seen and examined. More alert this morning. Underwent swallow study yesterday with recommended pur?ed texture and nectar thick liquid. Awaiting pre-CERT to SNF. - Physical Exam Vitals/I&O's: Vital Signs Temp Pulse Resp BP Pulse Ox 97.8 F 108 H 18 144/61 H 97 08/06/19 10:14 08/06/19 12:10 08/06/19 10:14 08/06/19 10:42 08/06/19 10:14 Oxygen Flow Rate (L/min) 2 Oxygen Delivery Method Nasal Cannula Weight: 249 lb 5.485 oz Body Mass Index (BMI) 37.4 Finger Stick Blood Glucose 159 Intake and Output for Last 24 Hours 08/04/19 08/05/19 08/06/19 23:59 23:59 23:59 Intake Total 0 / 0 250 / 250 Output Total 1150 / 1150 1150 / 1150 200 / 200 Balance -1150 / -1150 -900 / -900 -200 / -200 General: Alert, Oriented x3, Cooperative HEENT: Atraumatic, PERRLA, EOMI, Normocephalic Neck: Supple, No JVD, Negative Carotid Bruits Lungs: Clear to auscultation, Diminished Cardiovascular: Regular rate, Regular Rhythm, Normal S1, Normal S2, No murmurs Abdomen: Bowel Sounds Present, Soft, Non Tender, Non-Distended Extremities: No clubbing, No cyanosis, No edema Skin: No rashes, No breakdown, - - Left foot dressing intact Musculoskeletal: No Tenderness to Palpation of Joints or Extremities Neurological: Cranial nerves II-XII grossly intact, Neuro grossly intact Psych/Mental Status: Normal Affect, Appropriate Microbiology Past 72 Hours 08/01/19 10:35 Blood Culture (Wb) - Left Wrist Blood Culture - Final No growth in 5 days. 08/01/19 10:42 Blood Culture (Wb) - Anticubital Left Blood Culture - Final No growth in 5 days. 08/01/19 10:42 Urine Catheter - Fierro Urine Culture - Final Culture exhibits no growth. Laboratory Results 08/05/19 16:48: POC Glucose 127 H 08/05/19 22:02: POC Glucose 153 H 08/06/19 04:10: WBC 5.4, RBC 3.23 L, Hgb 9.3 L, Hct 30.5 L, MCV 94.4 H, MCH 28.8, MCHC 30.5 L, RDW Std Deviation 53.2 H, RDW Coeff of Suraj 15.5 H, Plt Count 274, MPV 9.1 08/06/19 06:43: POC Glucose 132 H 08/06/19 12:00: POC Glucose 203 H Current Medications Clopidogrel Bisulfate (Plavix) 75 mg PO DAILY [facility] Last Admin: 08/06/19 10:33 Dose: 75 mg Documented by: Enoxaparin Sodium (Lovenox) 120 mg SC BID [facility] Last Admin: 08/06/19 10:33 Dose: 120 mg Documented by: Furosemide (Lasix) 80 mg PO DAILY [facility] Last Admin: 08/06/19 10:42 Dose: 80 mg Documented by: Glucagon () 1 mg IM .X1 PRN PRN Reason: Hypoglycemia Dextrose (Dextrose 10%-Water) 250 mls @ 999 mls/hr IV .Q16M PRN; Protocol PRN Reason: HYPOGLYCEMIA Last Infusion: 08/02/19 15:12 Dose: Infused Documented by: Insulin Human Lispro (Humalog Kwikpen (Bkc)) 0 unit SC [facility]; Protocol Last Admin: 08/06/19 06:45 Dose: Not Given Documented by: Metoprolol Tartrate (Lopressor (Beta Deborah)) 50 mg PO 0800 [facility] Last Admin: 08/06/19 10:42 Dose: 50 mg Documented by: Metoprolol Tartrate (Lopressor (Beta Deborah)) 25 mg PO 2000 [facility] Ondansetron HCl (Zofran) 4 mg IV Q8H PRN PRN PRN Reason: NAUSEA/VOMITING Last Admin: 08/04/19 05:35 Dose: 4 mg Documented by: Pantoprazole Sodium (Protonix) 20 mg PO DAILY [facility] Last Admin: 08/06/19 10:33 Dose: 20 mg Documented by: Sodium Chloride () 10 - 40 ml IV UD PRN PRN Reason: Multilumen/Nava Flush Last Admin: 08/06/19 04:12 Dose: 40 ml Documented by: Sodium Chloride (0.9% Nacl (Sterile) Posiflush) 10 - 40 ml IV UD PRN PRN Reason: Port access or dressing change Medical Necessity - Tobacco Use Smoking Status: Former smoker Assessment/Plan All Active Problems Airway intubation performed without difficulty (Acute) Encounter for central line placement (Acute) Unresponsive (Acute) Respiratory failure (Acute) Hypothermia (Acute) 1. Acute encephalopathy, suspect metabolic secondary to acute hypoxic respiratory failure following reported significant hypoglycemia at SNF/unresponsiveness-MRI of brain shows chronic changes. No acute process. Chest x-ray on admission showed questionable small effusion at the right lung base, repeat chest x-ray with no change. Afebrile. No leukocytosis. Ence phalopathy improving. Patient initially intubated on admission, extubated on August 02. Continue supplemental oxygen to maintain O2 sat above 90%. Speech therapy following, swallow study completed, continue dietary modifications per speech therapy recommendations. 2. Recent left foot cellulitis with left great toe osteomyelitis- status post left foot partial first ray amputation 07/20/[address] Parker. No evidence of active infection. Completed course of doxycycline. Podiatry following. Suture removal 08/06/2019 by podiatry. Keep dressing clean dry and intact until August 3. Then dressing can be changed daily with Betadine, 4 x 4 gauze and wrapped with Kerlix and Grady bandage. Follow-up with podiatry, Dr. Parker in office August 13. 3. CAD status post stents x6- Echocardiogram 07/21/2019 demonstrated EF 65%, stage II diastolic dysfunction, mild mitral valve insufficiency. Continue aspirin, Plavix, beta-deborah. Cardiac catheterization 07/23/2019 demonstrated nonobstructive coronary arteries. Continue outpatient follow-up with Dr. Garza. 4. Paroxysmal atrial flutter, history of atrial fibrillation-on Eliquis, metoprolol at baseline however unable to take oral at this time. Patient had previous plans for outpatient cardioversion with Dr. Garza. Continue PRN metoprolol and therapeutic Lovenox. Recently placed on amiodarone by cardiology at recent discharge however it is unclear if patient has been taking. 5. Peripheral vascular disease-recent ELOY demonstrated moderate to severe arterial occlusive disease bilaterally. Following with Dr. Menard for angiogram as outpatient. 6. Stage III chronic kidney disease-stable, trend BMP. 7. History of PE-on Eliquis which is currently on hold, continue Lovenox. 8. Type 2 diabetes mellitus-continue glipizide. 9. Hypertension-stable. 10. Hyperlipidemia-continue Zetia regimen. 11. GERD- continue PPI. 12. [place]-continue BiPAP nightly and with naps. DVT prophylaxis-Lovenox This patient was seen by EULA Woodward under the supervision of Dr. Britton. <Les Britton - Last Filed: 08/06/19 13:50> Subjective: Patient has mild sinus tachycardia, heart rate 114 as this cardiac medications were held. Cardiac medications resumed in the morning. Patient is waiting for pre-CERT. Patient failed swallow study which shows aspiration and recommended pur?ed texture diet and nectar thick liquid. Discussed with the patient's daughter, and son-in-law present in the room - Physical Exam Vitals/I&O's: Vital Signs Temp Pulse Resp BP Pulse Ox 97.8 F 108 H 18 144/61 H 97 08/06/19 10:14 08/06/19 12:10 08/06/19 10:14 08/06/19 10:42 08/06/19 10:14 Oxygen Flow Rate (L/min) 2 Oxygen Delivery Method Nasal Cannula Weight: 249 lb 5.485 oz Body Mass Index (BMI) 37.4 Finger Stick Blood Glucose 159 Intake and Output for Last 24 Hours 08/04/19 08/05/19 08/06/19 23:59 23:59 23:59 Intake Total 0 / 0 250 / 250 Output Total 1150 / 1150 1150 / 1150 200 / 200 Balance -1150 / -1150 -900 / -900 -200 / -200 General: Alert, Oriented x3, Cooperative HEENT: Atraumatic, PERRLA, EOMI, Normocephalic Oral: No Gingival or Mucosal Lesions/ Ulcerations, - - Patient has cough during swallow. Neck: Supple, No JVD, Negative Carotid Bruits Lungs: Clear to auscultation, No rhonchi, No wheeze, No rales, Diminished - Air entry diminished in bilateral lung bases Cardiovascular: Regular rate, Regular Rhythm, Normal S1, Normal S2, No murmurs, - - Telemetry reviewed. Sinus tachycardia at 110 bpm. Abdomen: Bowel Sounds Present, Soft, Non Tender, Non-Distended Extremities: No edema, Capillary Refill Less than 3 Seconds Skin: Ulcer/ Wound, - Musculoskeletal: No Tenderness to Palpation of Joints or Extremities, Arthritic Changes Neurological: Cranial nerves II-XII grossly intact, Deep Tendon Reflexes 2+/4 and Symmetrical, Neuro grossly intact Psych/Mental Status: Normal Affect, Appropriate Microbiology Past 72 Hours 08/01/19 10:35 Blood Culture (Wb) - Left Wrist Blood Culture - Final No growth in 5 days. 08/01/19 10:42 Blood Culture (Wb) - Anticubital Left Blood Culture - Final No growth in 5 days. Laboratory Results 08/05/19 16:48: POC Glucose 127 H 08/05/19 22:02: POC Glucose 153 H 08/06/19 04:10: WBC 5.4, RBC 3.23 L, Hgb 9.3 L, Hct 30.5 L, MCV 94.4 H, MCH 28.8, MCHC 30.5 L, RDW Std Deviation 53.2 H, RDW Coeff of Suraj 15.5 H, Plt Count 274, MPV 9.1 08/06/19 06:43: POC Glucose 132 H 08/06/19 12:00: POC Glucose 203 H Current Medications Clopidogrel Bisulfate (Plavix) 75 mg PO DAILY [facility] Last Admin: 08/06/19 10:33 Dose: 75 mg Documented by: Enoxaparin Sodium (Lovenox) 120 mg SC BID [facility] Last Admin: 08/06/19 10:33 Dose: 120 mg Documented by: Furosemide (Lasix) 80 mg PO DAILY [facility] Last Admin: 08/06/19 10:42 Dose: 80 mg Documented by: Glucagon () 1 mg IM .X1 PRN PRN Reason: Hypoglycemia Dextrose (Dextrose 10%-Water) 250 mls @ 999 mls/hr IV .Q16M PRN; Protocol PRN Reason: HYPOGLYCEMIA Last Infusion: 08/02/19 15:12 Dose: Infused Documented by: Insulin Human Lispro (Humalog Kwikpen (Bkc)) 0 unit SC [facility]; Protocol Last Admin: 08/06/19 06:45 Dose: Not Given Documented by: Metoprolol Tartrate (Lopressor (Beta Deborah)) 50 mg PO 0800 [facility] Last Admin: 08/06/19 10:42 Dose: 50 mg Documented by: Metoprolol Tartrate (Lopressor (Beta Deborah)) 25 mg PO 1999 [facility] Ondansetron HCl (Zofran) 4 mg IV Q8H PRN PRN PRN Reason: NAUSEA/VOMITING Last Admin: 08/04/19 05:35 Dose: 4 mg Documented by: Pantoprazole Sodium (Protonix) 20 mg PO DAILY [facility] Last Admin: 08/06/19 10:33 Dose: 20 mg Documented by: Sodium Chloride () 10 - 40 ml IV UD PRN PRN Reason: Multilumen/Nava Flush Last Admin: 08/06/19 04:12 Dose: 40 ml Documented by: Sodium Chloride (0.9% Nacl (Sterile) Posiflush) 10 - 40 ml IV UD PRN PRN Reason: Port access or dressing change Assessment/Plan This patient was seen in conjunction with [facility] [employer] PERSONALITYCarolyn. I have independently interviewed and examined the patient and reviewed pertinent history, examination findings, laboratory and plan of management. I have reviewed the note and agree with the documented findings with the few additional points. In brief, patient is admitted for acute encephalopathy most probably metabolic secondary to acute hypoxic respiratory failure. MRI brain was done and did not show any acute change. Repeat chest x-ray showed no change. Patient was extubated on August 02. Patient failed initial nursing swallow screening test therefore speech therapist will do modified barium swallow. 08/06: Modified barium swallow is positive for aspiration. On pur?ed diet with nectar thick liquid and continue speech therapy monitoring and recommendation. Left foot cellulitis with left great toe osteomyelitis recent status post left foot partial first ray amputation on 07/20/[address] Parker. Patient completed antibiotic. coronary artery status post stents, paroxysmal atrial flutter/A. fib on Eliquis and peripheral vascular disease: Patient had echo on July 21, 2019 which showed EF 65% with a stage II diastolic dysfunction. Cardiac cath on 07/23 showed nonobstructive coronary artery disease. BUN/creatinine on baseline. Other chronic comorbidities include stage III CKD, history of PE, type 2 diabetes mellitus, hypertension, dyslipidemia, GERD and sleep apnea. Multiple comorbidities I have discussed my assessment with Carolyn RINCON and orders have been reviewed. Total time of the visit including total time spent in counseling or coordination of care, (more than 50% of the total time, spent in obtaining medical information from nurses and other ancillary care providers), discussion with patient and family members including , daughter, son-in-law, brother present in the room, review of telemetry, labs and imaging is 30 minutes Code Visit Inpatient E&M: 72479 Subs Hosp L2
--- NOTE | 2019-08-06 13:01 | CASEMGMT ---
PITER called Regina at [facility] and they can accept patient. She said that she was told by insurance that the hospital needs to get the insurance approval. She gave PITER the phone number to call . PITER called the number and spoke with Bren. The request number is [id number]. The fax number for clinicals is . PITER faxed clinicals to this number. Await insurance authorization. Plan: [facility] under skilled level of care pending insurance approval. Chelsie MANCILLA LPN RN HOSPICE
--- NOTE | 2019-08-06 14:25 | CASEMGMT ---
PITER spoke with Regina from patient's insurance and went over all of the clinicals with her. Patient meets criteria for shelter facility and can go when he is ready. PITER notified Julieta at [facility] and also faxed the approval to [facility]. PITER will notify family and patient. Green sheet on chart. Plan: d/c to [facility] under skilled level of care. Chelsie MANCILLA MSW
--- NOTE | 2019-08-06 15:06 | CASEMGMT ---
SW called patient's home and left a message for patient's letting her know [facility] can take patient, insurance approved, and patient will go tomorrow. Patient was sleeping and no one else was present. PITER does not have any other phone numbers for other family. Plan: d/c to [facility] under skilled level of care. Chelsie MANCILLA MSW
[2019-08-06 17:05] LABS: Bedside Glucose 196 mg/dL (70-110)
[2019-08-06] MEDS: Metoprolol Tartrate 25 MG Tablet PO (20:58)
[2019-08-06] MEDS: Insulin Lispro 100 UNIT/ML INSULN.PEN SC (20:58)
[2019-08-06 21:05] LABS: Bedside Glucose 187 mg/dL (70-110)
[2019-08-07 02:58] VITALS: PULSE 72
[2019-08-07 03:00] VITALS: BP 113/65; PULSE 88; RESP 18; TEMP 36.4; O2SAT 96
[2019-08-07 06:45] LABS: Bedside Glucose 139 mg/dL (70-110)
[2019-08-07 07:00] VITALS: PULSE 76
[2019-08-07 07:44] VITALS: O2SAT 95
[2019-08-07 09:09] VITALS: BP 117/65; PULSE 107; RESP 18; TEMP 36.7; O2SAT 93
[2019-08-07 09:12] VITALS: PULSE 112
[2019-08-07] MEDS: Enoxaparin 120 MG/0.8 ML Syringe SC (09:12)
[2019-08-07] MEDS: Metoprolol Tartrate 50 MG Tablet PO (09:12)
[2019-08-07] MEDS: Clopidogrel Bisulfate 75 MG Tablet PO (09:12)
[2019-08-07] MEDS: Furosemide 80 MG Tablet PO (09:12)
[2019-08-07] MEDS: Pantoprazole Sodium 20 MG Tablet PO (09:12)
--- NOTE | 2019-08-07 10:19 | PCM.EXTCARCO ---
- Diet 08/05/19 16:18 Diet: Regular Diet Food consistency:: Puree Liquid Consistency:: Eunice Thick Is pt able to select menu?: Yes Diet Comments: low sodium; supervised meals; no straws - Routine Orders/Code Status Enema Type: Fleetz Enema Frequency: Daily PRN Suppository Type: Dulcolax 10mg Suppository Frequency: Daily PRN O2 Liters per Minute: 2 O2 Frequency: PRN Keep PO Greater than or Equal to (%): 90 Routine Lab Work: CBC, BMP, - - Weekly Code Status: Full Code - Wound(s) Left Foot Wound Type: Surgical Incision Dressing Change: betadine with dry dressing LFA Wound Type: Abrasion - Suggestions for Active Care Change Position every (hours): 2 Times a day to sit in chair: 3 - Therapies Physical Therapy: Eval and Treat Occupational Therapy: Eval and Treat Speech Therapy: Eval and Treat - Problem/Diagnosis (1) Respiratory failure Status: Acute Current Visit: Yes (2) Peripheral vascular disease Status: Chronic Current Visit: No (3) Hypertension Status: Chronic Current Visit: No (4) Hyperlipidemia Status: Chronic Current Visit: No (5) History of CVA (cerebrovascular accident) Status: Chronic Current Visit: No (6) CKD (chronic kidney disease) stage 3, GFR 30-59 ml/min Status: Chronic Current Visit: No (7) Coronary artery disease involving [place] coronary artery of [place] heart Status: Chronic Current Visit: No - Allergies/Procedures Done in Hospital Allergies/Adverse Reactions: Allergies allopurinol Adverse Reaction (Verified 08/02/19 09:10) Other exenatide [From Byetta] Adverse Reaction (Verified 08/02/19 09:10) Other insulin aspart [From Novolog] Adverse Reaction (Verified 08/02/19 09:10) Other insulin glargine, human recombin. a [From Lantus] Adverse Reaction (Verified 08/02/19 09:10) Other morphine Adverse Reaction (Verified 08/02/19 09:10) Other DOES NOT HELP PAIN, MAKES ME FEEL OUT OF IT Dtawrlm-Bqj-Fow Reductase Inhibitor Adverse Reaction (Verified 08/02/19 09:10) Other Procedures: None - Type of Care/Length of Stay Estimated LOS: Convalescent Care Less Than 30 days Type of Care Needed: Skilled Rehab Potential: Fair Prognosis: Fair - Additional Orders/Day of Discharge Additional Orders: Weightbearing as tolerated left foot in postoperative shoe. Keep left foot dressing clean dry and intact until August 09. At that time, dressing can be changed daily with Betadine, 4 x 4 gauze, wrapped with Kerlix and Grady bandage. Follow-up with Dr. Parker, podiatry August 13 in [place]. H&P will serve as current which was dated: 08/01/19 Day of Discharge: 08/07/19 - Dietary and Speech Recommendations Dietitian Recommendations/Changes: Recommend regular diet- consistency per HOSTEL MANAGER. As adequate PO intake established, recommend CHO controlled, low sodium diet. - Follow Up Care Primary Care Physician: Carolyn Asif BRASSIERE [employer] M[employer] CUTTER-C [Primary Care Provider] - Please follow up with your Primary Care Physician in: 1 Week Please Follow Up With: Juarez Parekr DPM When: August 13 Please Follow Up With: Tim Bright NP-C When: As scheduled 08/12/2019 Please Follow Up With: Facundo Menard MD When: Call to schedule previously planned lower extremity angiogram
--- NOTE | 2019-08-07 10:43 | DS.PCM_ITS ---
<Carolyn Richardson - Last Filed: 08/07/19 10:52> Discharge Date and Diagnosis Date of Admission: 08/01/19 Date of Discharge: 08/07/19 - Primary Discharge Diagnosis Active and Suspected Problems 1. Acute encephalopathy, suspect metabolic secondary to acute hypoxic respiratory failure following reported significant hypoglycemia at SNF/unresponsiveness 2. Recent left foot cellulitis with left great toe osteomyelitis- status post left foot partial first ray amputation 07/20/[address] Parker. 3. CAD status post stents x6 4. Paroxysmal atrial flutter, history of atrial fibrillation 5. Peripheral vascular disease 6. Stage III chronic kidney disease 7. History of PE 8. Type 2 diabetes mellitus 9. Hypertension 10. Hyperlipidemia 11. GERD 12. [place] - Secondary Discharge Diagnosis Chronic Problems History of left heart catheterization (Chronic 07/23/19) Segmented LV systolic dysfunction- Moderate LVEF: by LV gram 50 % Depressed Left Ventricular systolic function - Mild Triple vessel CAD of the LM, LAD, LCX, RCA Widely patent FULLER To LAD; Widely patent SVG to OM; Occluded SVG to RCA (old) Widely patent stents x 3 to proximal, mid and distal RCA. 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) Peripheral vascular disease (Chronic) Diabetic foot ulcer (Chronic) Peripheral neuropathy (Chronic) Obesity (Chronic) History of pulmonary embolism (Chronic) Hypertension (Chronic) Hyperlipidemia (Chronic) History of CVA (cerebrovascular accident) (Chronic) CKD (chronic kidney disease) stage 3, GFR 30-59 ml/min (Chronic) Ulcer of right foot with necrosis of bone (Chronic) Osteomyelitis (Chronic) Ulcer of right foot with fat layer exposed (Chronic) GERD (gastroesophageal reflux disease) (Chronic) Coronary artery disease involving [place] coronary artery of [place]addo heart (Chronic) Gout (Chronic) Lumbosacral stenosis (Chronic) Lumbosacral radiculopathy (Chronic) PAD (peripheral artery disease) (Chronic) Diabetes mellitus type II, controlled (Chronic) Hospital Course and Treatment Imaging Results: Diagnostic Data Brain CT 08/01/19 10:19 IMPRESSION: 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 Age indeterminate hypodensity in the left centrum semiovale white matter. Acute ischemia is hard to exclude. MRI can be obtained for further evaluation. Bilateral ethmoid sinus disease. N.B. : The above information has been verbally conveyed by Wade Mendez to Wade Williamson MD , , on 08/01/2019 11:56:29 (ET). Electronically Signed: Wade Mendez, at 11:42 EST Tel , Service support , Liver Ultrasound 08/02/19 06:51 IMPRESSION: Fatty infiltration of the liver. Electronically Signed: Wayne Wang, at 9:00 EST , Service support , Brain MRI 08/02/19 10:05 IMPRESSION: 1. Chronic involutional and mild chronic ischemic changes of the brain, as described above. Electronically Signed: Rafael Mckeon MD at 15:52 EST , Service support , Chest X-Ray 08/02/19 13:25 IMPRESSION: Minimal residual linear changes seen at the left lung base. Electronically Signed: Wayne Wang, at 13:43 EST , Service support , Videofluoroscopic Swallow 08/05/19 13:00 IMPRESSION: Silent aspiration with ingestion of thin liquids. Penetration with ingestion of nectar thickened The swallow study findings were discussed with the patient by the speech pathologist at the conclusion of the examination. Please see speech pathology report for more information and recommendations. Electronically Signed: Wayne Wang, at 13:32 EST , Service support , Foot X-Ray 08/06/19 11:37 IMPRESSION: 1. Persistent lucency of the third middle and distal phalanges, suspicious for osteomyelitis. 2. 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 3. Status post amputation of the first digit at the metatarsal level. Electronically Signed: Sharon Stoddard MD at 17:04 EST Tel , Service support , Consultations 08/01/19 13:19 Consult: Onc/Wound/buckle inspector Routine Comment: Left forefoot amputation/osteomyelitis Dr. Gay- Pulmonary Dr. Parker- Podiatry Operations: None Procedures: None Summary of Care Provided: The patient is a 79 year old M admitted 08/01/2019 due to unresponsiveness. 1. Acute encephalopathy, suspect metabolic secondary to acute hypoxic respiratory failure following reported significant hypoglycemia at SNF/unresponsiveness-MRI of brain shows chronic changes. No acute process. Chest x-ray on admission showed questionable small effusion at the right lung base, repeat chest x-ray with no change. Afebrile. No leukocytosis. Encephalopathy resolved. Patient initially intubated on admission, extubated on August 02. Continue supplemental oxygen to maintain O2 sat above 90%. Speech therapy following, swallow study completed, continue dietary modifications per speech therapy recommendations. 2. Recent left foot cellulitis with left great toe osteomyelitis- status post left foot partial first ray amputation 07/20/[address] Parker. No evidence of active infection. Completed course of doxycycline. Podiatry following. Suture removal 08/06/2019 by podiatry. Keep dressing clean dry and intact until August 3. Then dressing can be changed daily with Betadine, 4 x 4 gauze and wrapped with Kerlix and Grady bandage. Follow-up with podiatry, Dr. Parker in office August 13. 3. CAD status post stents x6- Echocardiogram 07/21/2019 demonstrated EF 65%, stage II diastolic dysfunction, mild mitral valve insufficiency. Continue Plavix, beta-deborah. Cardiac catheterization 07/23/2019 demonstrated nonobstructive coronary arteries. Continue outpatient follow-up with Dr. Garza. 4. Paroxysmal atrial flutter, history of atrial fibrillation-on Eliquis, metoprolol, amiodarone. Patient had previous plans for outpatient cardioversion with Dr. Garza. Continue outpatient follow-up. 5. Peripheral vascular disease-recent ELOY demonstrated moderate to severe arterial occlusive disease bilaterally. Following with Dr. Menard for angiogram as outpatient. 6. Stage III chronic kidney disease-stable. 7. History of PE-on Eliquis. 8. Type 2 diabetes mellitus-continue glipizide. 9. Hypertension-stable. 10. Hyperlipidemia-continue Zetia regimen. 11. GERD- continue PPI. 12. [place]-continue BiPAP nightly and with naps. General: Alert, Oriented x3, Cooperative HEENT: Atraumatic, PERRLA, EOMI, Normocephalic Neck: Supple, No JVD, Negative Carotid Bruits Lungs: Clear to auscultation, Diminished Cardiovascular: Atrial flutter, rate controlled Abdomen: Bowel Sounds Present, Soft, Non Tender, Non-Distended Extremities: No clubbing, No cyanosis, No edema Skin: No rashes, No breakdown, - - Left foot dressing intact Musculoskeletal: No Tenderness to Palpation of Joints or Extremities Neurological: Cranial nerves II-XII grossly intact, Neuro grossly intact Psych/Mental Status: Normal Affect, Appropriate Patient seen and examined prior to discharge. Physical assessment as noted above. Patient is stable for discharge with follow up recommendations as noted above. This patient was seen by EULA Woodward under the supervision of Dr. Britton. - Physical Exam Vitals/I&O's: Vital Signs Temp Pulse Resp BP Pulse Ox 98.0 F 112 H 18 117/65 93 08/07/19 09:09 08/07/19 09:12 08/07/19 09:09 08/07/19 09:09 08/07/19 09:09 Oxygen Flow Rate (L/min) 2 Oxygen Delivery Method Room Air Weight: 248 lb 10.903 oz Body Mass Index (BMI) 37.4 Finger Stick Blood Glucose 159 Intake and Output for Last 24 Hours 08/05/19 08/06/19 08/07/19 23:59 23:59 23:59 Intake Total 250 / 250 1120 / 1120 480 / 480 Output Total 1150 / 1150 1725 / 1725 300 / 300 Balance -900 / -900 -605 / -605 180 / 180 Microbiology Past 72 Hours 08/01/19 10:35 Blood Culture (Wb) - Left Wrist Blood Culture - Final No growth in 5 days. 08/01/19 10:42 Blood Culture (Wb) - Anticubital Left Blood Culture - Final No growth in 5 days. Laboratory Results 08/06/19 12:00: POC Glucose 203 H 08/06/19 16:58: POC Glucose 196 H 08/06/19 20:56: POC Glucose 187 H 08/07/19 06:29: POC Glucose 139 H Current Medications Clopidogrel Bisulfate (Plavix) 75 mg PO DAILY [facility] Last Admin: 08/07/19 09:12 Dose: 75 mg Documented by: Enoxaparin Sodium (Lovenox) 120 mg SC BID [facility] Last Admin: 08/07/19 09:12 Dose: 120 mg Documented by: Furosemide (Lasix) 80 mg PO DAILY [facility] Last Admin: 08/07/19 09:12 Dose: 80 mg Documented by: Glucagon () 1 mg IM .X1 PRN PRN Reason: Hypoglycemia Dextrose (Dextrose 10%-Water) 250 mls @ 999 mls/hr IV .Q16M PRN; Protocol PRN Reason: HYPOGLYCEMIA Last Infusion: 08/02/19 15:12 Dose: Infused Documented by: Insulin Human Lispro (Humalog Kwikpen (Bkc)) 0 unit SC ACHS [facility]; Protocol Last Admin: 08/07/19 06:29 Dose: Not Given Documented by: Metoprolol Tartrate (Lopressor (Beta Deborah)) 50 mg PO 0800 [facility] Last Admin: 08/07/19 09:12 Dose: 50 mg Documented by: Metoprolol Tartrate (Lopressor (Beta Deborah)) 25 mg PO 2000 [facility] Last Admin: 08/06/19 20:58 Dose: 25 mg Documented by: Ondansetron HCl (Zofran) 4 mg IV Q8H PRN PRN PRN Reason: NAUSEA/VOMITING Last Admin: 08/04/19 05:35 Dose: 4 mg Documented by: Pantoprazole Sodium (Protonix) 20 mg PO DAILY [facility] Last Admin: 08/07/19 09:12 Dose: 20 mg Documented by: Sodium Chloride () 10 - 40 ml IV UD PRN PRN Reason: Multilumen/Nava Flush Last Admin: 08/06/19 04:12 Dose: 40 ml Documented by: Sodium Chloride (0.9% Nacl (Sterile) Posiflush) 10 - 40 ml IV UD PRN PRN Reason: Port access or dressing change Home Medications: Medications to take at Discharge Alirocumab [Praluent Pen] 75 mg SQ UD 08/01/19 Clopidogrel Bisulfate [Plavix] 75 mg PO DAILY 08/01/19 Furosemide [Lasix] 80 mg PO DAILY 08/01/19 Glipizide 10 mg PO BID 08/01/19 Metoprolol Tartrate 25 mg PO 199908/01/19 Metoprolol Tartrate [Lopressor (beta deborah)] 50 mg PO 0800 08/01/19 Pantoprazole Sodium [Protonix] 20 mg PO DAILY 08/01/19 Probenecid 500 mg PO BID 08/01/19 Timolol 0.5% [Timoptic] 1 drp EACH EYE BID 08/01/19 traMADol [Ultram] 50 mg PO Q6H PRN 08/01/19 Acetaminophen [Tylenol] 650 mg PO Q4H PRN 08/06/19 Amiodarone HCl [Cordarone] 200 mg PO DAILY 08/06/19 Apixaban [Eliquis] 2.5 mg PO BID 08/06/19 Docusate Sodium [Colace] 100 mg PO BID 08/06/19 Losartan Potassium 25 mg PO DAILY 08/06/19 Sennosides [Senna] 8.6 mg PO BID 08/06/19 Insulin Lispro [Humalog KwikPen] See Protocol SUBCUT ACHS insuln.pen 08/07/19 Primary Care Physician: Carolyn Asif NP-C [Primary Care Provider] - Please follow up with your Primary Care Physician in: 1 Week Please Follow Up With: Juarez Parker DPM When: August 13 Please Follow Up With: Tim Bright NP-C When: As scheduled 08/12/2019 Please Follow Up With: Facundo Menard MD When: Call to schedule previously planned lower extremity angiogram Disposition: Alf facility Minutes spent on discharge:: 35 Patient Condition:: Stable Medical Necessity - Tobacco Use Smoking Status: Former smoker Meaningful Use Info Meaningful Use Diagnoses (Choose all that apply): None applicable <Les Britton - Last Filed: 08/07/19 17:11> Discharge Date and Diagnosis - Secondary Discharge Diagnosis Chronic Problems History of left heart catheterization (Chronic 07/23/19) Segmented LV systolic dysfunction- Moderate LVEF: by LV gram 50 % Depressed Left Ventricular systolic function - Mild Triple vessel CAD of the LM, LAD, LCX, RCA Widely patent FULLER To LAD; Widely patent SVG to OM; Occluded SVG to RCA (old) Widely patent stents x 3 to proximal, mid and distal RCA. 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) Peripheral vascular disease (Chronic) Diabetic foot ulcer (Chronic) Peripheral neuropathy (Chronic) Obesity (Chronic) History of pulmonary embolism (Chronic) Hypertension (Chronic) Hyperlipidemia (Chronic) History of CVA (cerebrovascular accident) (Chronic) CKD (chronic kidney disease) stage 3, GFR 30-59 ml/min (Chronic) Ulcer of right foot with necrosis of bone (Chronic) Osteomyelitis (Chronic) Ulcer of right foot with fat layer exposed (Chronic) GERD (gastroesophageal reflux disease) (Chronic) Coronary artery disease involving [place] coronary artery of [place] heart (Chronic) Gout (Chronic) Lumbosacral stenosis (Chronic) Lumbosacral radiculopathy (Chronic) PAD (peripheral artery disease) (Chronic) Diabetes mellitus type II, controlled (Chronic) Hospital Course and Treatment Consultations 08/01/19 13:19 Consult: Onc/Wound/buckle inspector Routine Comment: Left forefoot amputation/osteomyelitis Summary of Care Provided: This patient was seen in conjunction with ENTRY LEVEL INSTALLATION TECHNICIAN, Carolyn. I have independently interviewed and examined the patient and reviewed pertinent history, examination findings, laboratory and plan of management. I have reviewed the note and agree with the documented findings with the few additional points. In brief, patient is admitted for acute encephalopathy most probably metabolic secondary to acute hypoxic respiratory failure. MRI brain was done and did not show any acute change. Repeat chest x-ray showed no change. Patient was extubated on August 02. Patient failed initial nursing swallow screening test therefore speech therapist will do modified barium swallow. 08/06: Modified barium swallow is positive for aspiration. On pur?ed diet with nectar thick liquid and continue speech therapy monitoring and recommendation. 08/07: Continue speech therapist evaluation and treatment. Left foot cellulitis with left great toe osteomyelitis recent status post left foot partial first ray amputation on 07/20/[address] Parker. Patient completed antibiotic. coronary artery status post stents, paroxysmal atrial flutter/A. fib on Eliquis and peripheral vascular disease: Patient had echo on July 21, 2019 which showed EF 65% with a stage II diastolic dysfunction. Cardiac cath on 07/23 showed nonobstructive coronary artery disease. BUN/creatinine on baseline. Follow-up with vascular surgeon Dr. Menard in 3 to 4 weeks for possible lower extremity angiogram Other chronic comorbidities include stage III CKD, history of PE, type 2 diabetes mellitus, hypertension, dyslipidemia, GERD and sleep apnea. Multiple comorbidities I have discussed my assessment with ENTRY LEVEL INSTALLATION TECHNICIANCarolyn and orders have been reviewed. Discharge medication reconciliation done. Discharge follow-up instructions completed. Discharge process discussed with the patient and all questions were answered to patient's satisfaction. Total time spent, exact 35 minutes on discharge meds reconciliation, examination, coordination of care with nurses and ancillary staff, review of imaging and blood test and discussion with the patient on follow-up instructions [] Objective: General: Alert, Oriented x3, Cooperative HEENT: Atraumatic, PERRLA, EOMI, Normocephalic Oral: No Gingival or Mucosal Lesions/ Ulcerations, oropharyngeal dysphagia Neck: Supple, No JVD, Negative Carotid Bruits Lungs: Clear to auscultation, No rhonchi, No wheeze, No rales, Diminished - Air entry diminished in bilateral lung bases Cardiovascular: Regular rate, Regular Rhythm, Normal S1, Normal S2, No murmurs, Telemetry reviewed. Mild sinus tachycardia heart rate in the 100s. Abdomen: Bowel Sounds Present, Soft, Non Tender, Non-Distended Extremities: No edema, Capillary Refill Less than 3 Seconds Skin: Ulcer/ Wound, left first great toe amputation with dressing Musculoskeletal: No Tenderness to Palpation of Joints or Extremities, Arthritic Changes Neurological: Cranial nerves II-XII grossly intact, Deep Tendon Reflexes 2+/4 and Symmetrical, Neuro grossly intact Psych/Mental Status: Normal Affect, Appropriate - Physical Exam Vitals/I&O's: Vital Signs Temp Pulse Resp BP Pulse Ox 98.0 F 112 H 18 117/65 93 08/07/19 09:09 08/07/19 09:12 08/07/19 09:09 08/07/19 09:09 08/07/19 09:09 Oxygen Flow Rate (L/min) 2 Oxygen Delivery Method Room Air Weight: 248 lb 10.903 oz Body Mass Index (BMI) 37.4 Finger Stick Blood Glucose 159 Intake and Output for Last 24 Hours 08/05/19 08/06/19 08/07/19 23:59 23:59 23:59 Intake Total 250 / 250 1120 / 1120 930 / 930 Output Total 1150 / 1150 1725 / 1725 800 / 800 Balance -900 / -900 -605 / -605 130 / 130 Microbiology Past 72 Hours 08/01/19 10:35 Blood Culture (Wb) - Left Wrist Blood Culture - Final No growth in 5 days. 08/01/19 10:42 Blood Culture (Wb) - Anticubital Left Blood Culture - Final No growth in 5 days. Laboratory Results 08/06/19 20:56: POC Glucose 187 H 08/07/19 06:29: POC Glucose 139 H 08/07/19 11:13: POC Glucose 188 H Code Visit Inpatient E&M: 68415 Disch Hosp
--- NOTE | 2019-08-07 10:51 | NURSING ---
report called to William العلي at [facility]
[2019-08-07] MEDS: Insulin Lispro 100 UNIT/ML INSULN.PEN SC (11:16)
[2019-08-07 11:41] LABS: Bedside Glucose 188 mg/dL (70-110)
[2019-08-07] MEDS: Magnesium Hydroxide 30 ML UDC 15 ML PO (11:50)
== END 2019-08-07 12:30 | disposition skilled nursing facility (03) | DRG 208 ==
LOC: ED 11:40 → ICU 12:53 → PCU 08-03 14:42
PROVIDERS: Internal Medicine; Internal Medicine Critical Care Medicine; Admitting Provider Hospitalist; Emergency Provider Emergency Medicine; PCP Nurse Practitioner Primary Care; Visit Provider Internal Medicine
DX: J96.01 Acute respiratory failure with hypoxia (principal); G93.41 Metabolic encephalopathy; I48.92 Unspecified atrial flutter; I25.810 Atherosclerosis of coronary artery bypass graft(s) without angina pectoris; I95.9 Hypotension, unspecified; R68.0 Hypothermia, not associated with low environmental temperature; E11.649 Type 2 diabetes mellitus with hypoglycemia without coma; E11.22 Type 2 diabetes mellitus with diabetic chronic kidney disease; I25.10 Atherosclerotic heart disease of native coronary artery without angina pectoris; N18.3 Chronic kidney disease, stage 3 (moderate); E78.5 Hyperlipidemia, unspecified; I12.9 Hypertensive chronic kidney disease with stage 1 through stage 4 chronic kidney disease, or unspecified chronic kidney disease; I73.9 Peripheral vascular disease, unspecified; E66.9 Obesity, unspecified; K21.9 Gastro-esophageal reflux disease without esophagitis; G47.33 Obstructive sleep apnea (adult) (pediatric); G62.9 Polyneuropathy, unspecified; Z87.891 Personal history of nicotine dependence; Z86.711 Personal history of pulmonary embolism; Z95.1 Presence of aortocoronary bypass graft; Z89.432 Acquired absence of left foot; Z95.5 Presence of coronary angioplasty implant and graft; Z68.37 Body mass index [BMI] 37.0-37.9, adult; Z79.02 Long term (current) use of antithrombotics/antiplatelets; Z79.01 Long term (current) use of anticoagulants; Z79.4 Long term (current) use of insulin
CPT/HCPCS: 31500; 31720; 36556; 51702; 70450; 70551; 71045; 73630; 74230; 76705; 80048; 80053; 80076; 81001; 82550; 82803; 82962; 82977; 83605; 83690; 83735; 83880; 84478; 84484; 85025; 85027; 85610; 85730; 87040; 87086; 92526; 92610; 92611; 93005; 94002; 94003; 97162; 97163; 97167; 97530; 97802; 99251; 99285; J7030; J7040; J7050; A4216; C1751; G0463; J0330; J2405; J3490; J7799

== ENCOUNTER → 2019-09-21 12:43 | Outpatient (CLI) | payer MEDICARE, SELFPAY ==
[2019-08-02 09:07] VITALS: BMI 41.8
--- NOTE | 2019-09-21 13:00 | VDLE_ITS ---
Reason For Study: Leg swelling RIGHT LEFT CFV is compressible, spontaneous, phasic, CFV is compressible, spontaneous, phasic, competent and demonstrates normal competent, and demonstrates normal augmentation. augmentation. FV is compressible, spontaneous, phasic, FV is compressible, spontaneous, phasic, competent and demonstrates normal competent and demonstrates normal augmentation. augmentation. POP V is compressible, spontaneous, phasic, POP V is compressible, spontaneous, phasic, competent and demonstrates normal competent and demonstrates normal augmentation. augmentation. T/P Trunk is compressible. T/P Trunk is compressible. PTV is compressible. PTV is compressible. RT PerV is compressible. LT PerV is compressible. SFJ is INCOMPETENT and measures 0.70 x 0.70 SFJ is INCOMPETENT and measures 0.57 x 0.54 cm. cm. GSV proximal thigh measures 0.41 x 0.41 cm. GSV proximal thigh measures 0.39 x 0.38 cm. GSV at knee measures 0.25 x 0.30 cm. GSV above knee is competent. GSV above knee is INCOMPETENT for greater GSV previously harvested. than 0.5 seconds. SSV at junction is INCOMPETENT for greater GSV below knee not visualized. than 0.5 seconds and measures 0.59 x 0.56 cm. ASV proximal calf is INCOMPETENT for greater than 0.5 seconds and measures 0.19 x 0.23 cm. SSV at junction is competent and measures 0.37 x 0.36 cm. Procedure Exam performed in department. A preliminary report was called and/or faxed to [facility]. Interpretation Summary 1. No DVT 2. Right GSV reflux 4.1 and 7.0mm 3. Right calf ASV reflux 4. Left SPJ6mm reflux. Ordering Physician: Facundo Menard Referring Physician: Carolyn Asif Performed By: Willinger, Vane, RVT
== END ==
PROVIDERS: PCP Nurse Practitioner Primary Care; Referring Provider Surgery Vascular Surgery; Visit Provider Surgery Vascular Surgery
DX: I87.2 Venous insufficiency (chronic) (peripheral) (principal); I87.309 Chronic venous hypertension (idiopathic) without complications of unspecified lower extremity; Z86.718 Personal history of other venous thrombosis and embolism
CPT/HCPCS: 93970

== ENCOUNTER 2022-07-12 01:58 | Inpatient (IN) | payer MEDICARE, SELFPAY ==
[2022-07-12] VITALS (60 sets, daily range): BP systolic 72–135; BP diastolic 43–96; PULSE 82–131; RESP 12–38; TEMP 35.2–36.2; O2SAT 75–100; BMI 31.1; BMI 31.3
--- NOTE | 2022-07-12 02:11 | RAD_ITS ---
STUDY: X-RAY CHEST REASON FOR EXAM: Male, 82 years old. dyspnea TECHNIQUE: Single AP portable view of the chest. COMPARISON: None. FINDINGS: Ill-defined subpleural groundglass opacities are seen more prominent in the lung bases , may represent atypical pneumonia or viral pneumonia . There is no demonstrated pleural abnormality. Sternal cerclage wires and vascular clips are present from a prior sternotomy and coronary artery bypass graft procedure (CABG). Normal mediastinum and guillermina. Normal visualized pulmonary arteries. Normal visualized aortic arch and descending thoracic aorta. Normal visualized thoracic spine. Normal visualized ribs, clavicles, and shoulders. There is no demonstrated abnormality of the visualized soft tissue structures of the upper abdomen. RAD/Chest 1 View (Portable) IMPRESSION: Ill-defined subpleural groundglass opacities are seen more prominent in the lung bases , may represent atypical pneumonia or viral pneumonia . Electronically Signed: Eloy Montgomery MD at 3:08 EST ,
--- NOTE | 2022-07-12 02:11 | EKG12_ITS ---
Test Reason : DYSRHYTHMIA Blood Pressure : / mmHG Vent. Rate : 111 BPM Atrial Rate : 250 BPM P-R Int : 000 ms QRS Dur : 084 ms QT Int : 362 ms P-R-T Axes : 000 015 249 degrees QTc Int : 492 ms Atrial fibrillation with premature ventricular or aberrantly conducted complexes ST & T wave abnormality, consider anterolateral ischemia Abnormal ECG Confirmed by ABUNDIO BERRY, DMITRY ([id number]), assignment editor AMY VILLASENOR ([id number]) on 07/15/2022 10:54:20 AM Referred By: GEORGES Confirmed By:EDGARDO DEL CASTILLO MD
[2022-07-12 02:21] LABS: Blood Gas Specimen Type VEN; O2 Delivery Device BiPAP; VBG BASE EXCESS -1 mmol/L (-1.0-3.5); VBG Bicarbonate 27 mmol/L (22-26); VBG PO2 27 mmHg (25-40); VBG SO2 38 % (50-70); VBG TCO2 29 mmol/L (23-33); VBG pCO2 62.3 mmHg (41-51); VBG pH 7.24 (7.32-7.42)
[2022-07-12] MEDS: 0.9% Normal Saline 1,000 ML 999 ML IV ×3 (02:25→04:09)
[2022-07-12 02:52] LABS: Hematocrit 41.3 % (40-54); Hemoglobin 12.8 g/dL (13.0-16.5); Mean Corpuscular Hgb 28.6 pg (27.0-32.0); Mean Corpuscular Volume 92.2 fL (80-94); Mean Platelet Vol. 9.4 fl (6.2-12.0); NRBC Flagged by Analyzer 0 % (0-5); POSITIVE DIFFERENTIAL YES; POSITIVE MORPHOLOGY YES; Platelet Count 212 K/mm3 (150-450); RBC Distribution Width CV 16.1 % (11.6-14.6); Red Blood Count 4.48 M/mm3 (4.6-6.2); White Blood Count 9.5 K/mm3 (4.4-11.0)
[2022-07-12 02:53] LABS: Differential Indicated SCAN CRITERIA MET
[2022-07-12 03:09] LABS: Anion Gap 13 (5-15); BUN 40 mg/dL (7-18); BUN/Creat Ratio 21.2 RATIO (10-20); Calcium,Total 8.7 mg/dL (8.5-10.1); Chloride 102 mmol/L (98-107); Creatinine, Serum 1.89 mg/dL (0.70-1.30); EST Glomerular Filtration Rate 36 mL/min (>60); Est Glom Filt Rate - Afr Amer 44 mL/min (>60); Estimated Creatinine Clearance 31.54 ml/min; Glucose 201 mg/dL (74-106); Magnesium 2.5 mg/dL (1.6-2.6); Potassium 4.5 mmol/L (3.5-5.1); Sodium Level 138 mmol/L (136-145)
[2022-07-12] MEDS: Etomidate 20 MG/10 ML Vial 15 MG IV (03:17)
[2022-07-12] MEDS: Succinylcholine Chloride 200 MG/10 ML SYRINGE 100 MG IV (03:23)
[2022-07-12 03:26] LABS: Lymphocyte 5 % (19-41); Metamyelocyte 6 % (0-1); Monocyte 5 % (0-10); Neutrophil-Band 35 % (0-5); Neutrophil-Segmented 49 % (47-70); Scan Smear per Review Criteria MANUAL DIFF; Total Cells Counted 100 (MANUAL DIFF)
[2022-07-12 03:27] LABS: Neutrophil # 7.95 X10^3/uL (2.7-7.7); Platelet Estimate ADEQUATE (ADEQ); Red Cell Morphology NORM C+C NORMAL (NORM C&C)
[2022-07-12 03:28] LABS: Absolute Lymphocyte Count 0.47 X10^3/uL (0.83-4.51); Lymphocyte # 0.47 X10^3/ul (0.83-4.51)
--- NOTE | 2022-07-12 03:32 | ED.RN ---
Blood draw delay due to inability to find vein. Multiple IV attempt by multiple RNs and lab. Central line placement ordered by Dr. Bergman.
[2022-07-12] MEDS: fentaNYL 100 MCG/2 ML Ampul 25 MCG IV (03:43)
[2022-07-12 03:47] LABS: BNP,B-Type NATRIURETIC PEPTIDE 166.4 pg/mL (0-100)
--- NOTE | 2022-07-12 04:02 | RAD_ITS ---
ACR Level 3 findings have been noted. An addendum which confirms receipt of the report will follow. EXAM: XR CHEST, 1 VIEW CLINICAL INDICATION: central line and s/p intubation TECHNIQUE: Frontal view of the chest. This report was created using [employer] report generation technology. COMPARISON: None. FINDINGS: LUNGS AND PLEURAL SPACES: Patchy bilateral airspace disease. No pneumothorax. No effusion. HEART: Unremarkable. Cardiac silhouette not enlarged. MEDIASTINUM: Surgical changes of the mediastinum. BONES/JOINTS: Unremarkable. SOFT TISSUES: Unremarkable. TUBES, LINES AND DEVICES: Left sided central line with the distal end taking a steeper course through the mediastinum as it passes over the aortic arch. Enteric tube extending below the level of the GE junction into the stomach. Endotracheal tube with tip 3.8 cm above the vincent. RAD/Chest 1 View (Portable) IMPRESSION: 1. Left sided central line with the distal end taking a steeper course through the mediastinum as it passes over the aortic arch. While this may be within the innominate vein leading to the SVC, arterial placement is not excluded. Correlate with blood return. A CT could provide a definitive position if necessary. 2. Enteric tube extending below the level of the GE junction into the stomach. 3. Endotracheal tube with tip 3.8 cm above the vincent. 4. Patchy bilateral airspace disease. Findings may indicate pneumonia. Electronically Signed: Robert Cook MD at 4:53 EST ,
[2022-07-12] MEDS: Midazolam 2 MG/2 ML Syringe 1 MG IV (04:07)
[2022-07-12 04:32] LABS: International Normalized Ratio 1.2; Prothrombin Time (Protime)PT. 14.9 SECONDS (11.7-14.9)
[2022-07-12 04:33] LABS: Partial Thromboplast Time 30.6 Seconds (24.1-36.2)
[2022-07-12 04:50] LABS: Lactic Acid 2.8 mmol/L (0.4-1.9)
[2022-07-12 05:01] LABS: Allen Test Positive; Base Excess -6 mmol/L (-2 to +2); Bicarbonate 20.4 mmol/L (22-26); Blood Gas Specimen Type ART; FI02 40; Mode AC; O2 Delivery Device Adult Vent; PEEP 5; PO2 59 mmHG (75-100); RR 14; SITE R Brach; SO2 87 % (95-99); Total Carbon Dioxide 22 mmol/L; Vt 500; pCO2 41.7 mmHg (35-45)
[2022-07-12 05:21] LABS: Blood Gas Specimen Type VEN; O2 Delivery Device Adult Vent; PEEP 5; RR 14; SITE Central Line; VBG BASE EXCESS -5 mmol/L (-1.0-3.5); VBG Bicarbonate 22 mmol/L (22-26); VBG PO2 43 mmHg (25-40); VBG SO2 72 % (50-70); VBG TCO2 23 mmol/L (23-33); VBG pCO2 46.7 mmHg (41-51); VBG pH 7.27 (7.32-7.42)
--- NOTE | 2022-07-12 05:55 | EDS_ITS ---
HPI History of Present Illness Chief Complaint: Shortness of Breath Narrative Narrative: Patient is a 82-year-old male with past medical history of diabetes hypertension hyperlipidemia chronic kidney disease who according to family fell at home because of neuropathy and balance issues approximately 4 to 6 weeks ago. At that time he ended up with a nonoperative sacral and pelvic fracture and therefore he was sent to the long term. They state that they went over for holiday activities and multiple people have been sick and over the past 3 days the patient began with phlegm cough and congestion. [facility] states that they did an x-ray based on his worsening symptoms and it showed pneumonia and he was started on antibiotics in the last 24 hours. However they have been increasing his supplemental oxygen and despite this has been having increased work of breathing and therefore he was sent to the hospital for evaluation. Based on the patient's symptoms he cannot provide any further history [facility] Medical History (Updated 07/12/22 @ 06:[address] Bridger Bergman, DO) Atherosclerotic heart disease BPH (benign prostatic hyperplasia) Fracture of left pubis Fracture of sacrum Glaucoma Heart failure Morbid obesity Muscle weakness (generalized) Obstructive and reflux uropathy Osteoarthritis Paroxysmal A-fib Pulmonary embolism Sleep apnea Type 2 diabetes mellitus Unsteadiness on feet Home Medications clopidogrel 75 mg tablet 75 mg PO DAILY BLOOD THINNER 08/01/19 [History Last Taken Unknown] furosemide 80 mg tablet 40 mg PO DAILY EDEMA 08/01/19 [History Last Taken Unknown] metoprolol tartrate 50 mg tablet 25 mg PO 0800 HTN 08/01/19 [History Last Taken Unknown] pantoprazole 20 mg tablet,delayed release 20 mg PO DAILY GERD 08/01/19 [History Last Taken Unknown] probenecid 500 mg tablet 500 mg PO QHS GOUT 08/01/19 [History Last Taken Unknown] tramadol 50 mg tablet 50 mg PO TID 08/01/19 [History Last Taken Unknown] acetaminophen 325 mg tablet 650 mg PO Q4H PRN Pain Or Fever 08/06/19 [History Last Taken Unknown] docusate sodium 100 mg capsule 100 mg PO BID CONSTIPATION 08/06/19 [History Last Taken Unknown] sennosides 8.6 mg tablet 8.6 mg PO QHS CONSTIPATION 08/06/19 [History Last Taken Unknown] ascorbic acid (vitamin C) 500 mg tablet 500 mg PO DAILY 07/12/22 [History Last Taken Unknown] empagliflozin 10 mg tablet (Jardiance) 10 mg PO DAILY 07/12/22 [History Last Taken Unknown] ergocalciferol (vitamin D2) 1,250 mcg (50,000 unit) capsule 1,250 mcg PO QWEEK 07/12/22 [History Last Taken Unknown] insulin lispro protamine-lispro 100 unit/mL (75-25) subcutaneous pen (Humalog Mix 75-25 KwikPen) 15 unit subcut BID 07/12/22 [History Last Taken Unknown] latanoprost 0.005 % eye drops 1 drp EACH EYE DAILY 07/12/22 [History Last Taken Unknown] pravastatin 10 mg tablet 10 mg PO DAILY 07/12/22 [History Last Taken Unknown] Allergy/AdvReac Type Severity Reaction Status Date / Time allopurinol AdvReac Other Verified 07/12/22 02:31 dulaglutide [From Trulicity] AdvReac PT UNABLE Verified 07/12/22 02:31 TO RESPOND-NEEDS F/U exenatide [From Byetta] AdvReac Other Verified 07/12/22 02:31 insulin aspart [From Novolog] AdvReac Other Verified 07/12/22 02:31 insulin glargine, human AdvReac Other Verified 07/12/22 02:31 recombin. a [From Lantus] morphine AdvReac Other Verified 07/12/22 02:31 pioglitazone [From Actos] AdvReac PT UNABLE Verified 07/12/22 02:31 TO RESPOND-NEEDS F/U rosiglitazone [From Avandia] AdvReac PT UNABLE Verified 07/12/22 02:31 TO RESPOND-NEEDS F/U rosuvastatin AdvReac PT UNSURE Verified 07/12/22 02:31 OF REACTION [id number] Reductase AdvReac Other Verified 07/12/22 02:31 Inhibitor [Pkipxje-Blq-Yrg Reductase Inhibitor] Family History (Updated 07/12/22 @ 06:[address] Lux Mitchell MD) Other CVA (cerebral vascular accident) Cancer Heart disease Surgical History (Updated 07/12/22 @ 06:[address] Lux Mitchell MD) Amputation toe Social History Smoking Status: Former smoker ROS ROS ED ROS Narrative Review of systems is unable to be obtained secondary to patient's acuity/medical condition Review of Systems ROS Unobtainable: due to mental condition EXAM Physical Exam Const Vital Signs: 07/12/22 01:59 07/12/22 02:04 07/12/22 02:06 Temperature 96.6 F L Temperature Source Temporal Pulse Rate 112 H 110 H Respiratory Rate 31 H 30 H Respiratory Effort Short of Breath Accessory Muscle Use Head [place] Respiratory Depth Deep Respiratory Pattern Tachypnea Blood Pressure 83/64 L Blood Pressure Mean 70 Blood Pressure Source Blood Pressure Position Blood Pressure Location Pulse Ox 75 95 Oxygen Delivery Method Room Air Bi-pap Room Air Oxygen Flow Rate (L/min) 100 Fraction of Inspired Oxygen (FIO2) 07/12/22 02:15 07/12/22 03:13 07/12/22 03:27 Temperature Temperature Source Pulse Rate 116 H 95 Respiratory Rate 38 H 13 Respiratory Effort Short of Breath Respiratory Depth Respiratory Pattern Tachypnea Apnea Blood Pressure 84/51 L Blood Pressure Mean 62 Blood Pressure Source Blood Pressure Position Blood Pressure Location Pulse Ox 100 97 Oxygen Delivery Method Mechanical Ventilator Mechanical Ventilator Oxygen Flow Rate (L/min) 100 Fraction of Inspired Oxygen (FIO2) 100 07/12/22 03:04 07/12/22 03:43 07/12/22 04:00 Temperature 96.6 F L Temperature Source Temporal Pulse Rate 103 H 90 100 Respiratory Rate 15 18 19 H Respiratory Effort Respiratory Depth Respiratory Pattern Blood Pressure 84/51 L 72/43 L 80/48 L Blood Pressure Mean 62 52 58 Blood Pressure Source Blood Pressure Position Blood Pressure Location Pulse Ox 97 100 100 Oxygen Delivery Method Mechanical Ventilator Mechanical Ventilator Mechanical Ventilator Oxygen Flow Rate (L/min) 100 100 100 Fraction of Inspired Oxygen (FIO2) 07/12/22 04:27 07/12/22 03:35 07/12/22 04:55 Temperature 96.9 F L Temperature Source Temporal Pulse Rate 93 82 Respiratory Rate 15 14 19 H Respiratory Effort Respiratory Depth Respiratory Pattern Normal Blood Pressure 77/49 L 72/48 L Blood Pressure Mean 58 56 Blood Pressure Source Monitor Blood Pressure Position Supine Blood Pressure Location Left Arm Pulse Ox 100 94 Oxygen Delivery Method Mechanical Ventilator Mechanical Ventilator Oxygen Flow Rate (L/min) Fraction of Inspired Oxygen (FIO2) 60 100 50 07/12/22 05:00 07/12/22 05:10 07/12/22 05:20 Temperature 96.9 F L 96.9 F L 97 F L Temperature Source Temporal Temporal Temporal Pulse Rate 91 99 97 Respiratory Rate 17 14 13 Respiratory Effort Respiratory Depth Respiratory Pattern Blood Pressure 89/58 L 103/69 130/86 H Blood Pressure Mean 68 80 100 Blood Pressure Source Blood Pressure Position Blood Pressure Location Pulse Ox 96 95 96 Oxygen Delivery Method Mechanical Ventilator Mechanical Ventilator Mechanical Ventilator Oxygen Flow Rate (L/min) Fraction of Inspired Oxygen (FIO2) 50 50 50 07/12/22 05:21 07/12/22 05:00 07/12/22 05:29 Temperature 97 F L 97 F L Temperature Source Temporal Temporal Pulse Rate 99 98 96 Respiratory Rate 14 17 14 Respiratory Effort Respiratory Depth Respiratory Pattern Blood Pressure 130/86 H 89/58 L 82/53 L Blood Pressure Mean 100 68 62 Blood Pressure Source Monitor Monitor Blood Pressure Position Supine Supine Blood Pressure Location Left Arm Left Arm Pulse Ox 96 96 94 Oxygen Delivery Method Mechanical Ventilator Mechanical Ventilator Mechanical Ventilator Oxygen Flow Rate (L/min) Fraction of Inspired Oxygen (FIO2) 50 60 50 07/12/22 05:36 Temperature 97.2 F L Temperature Source Temporal Pulse Rate 97 Respiratory Rate 18 Respiratory Effort Respiratory Depth Respiratory Pattern Blood Pressure 104/67 Blood Pressure Mean 79 Blood Pressure Source Blood Pressure Position Blood Pressure Location Pulse Ox 96 Oxygen Delivery Method Mechanical Ventilator Oxygen Flow Rate (L/min) Fraction of Inspired Oxygen (FIO2) 60 Positive obese Constitutional Narrative: Patient is in respiratory distress with tachypnea and accessory muscle use General Appearance ED: pallor Nutritional Appearance: obese HEENT Reports dry mucous membranes HEENT Narrative: No lip swelling no oral lesions no airway edema Mouth ED: Yes dry mucous membranes Mouth: dry mucous membranes Eyes PERRL and EOMs intact bilaterally General Eye ED: Yes pale conjunctiva Neck supple and no JVD Neck Narrative: No crepitance palpated Chest Wall palpation of chest normal Resp Resp Narrative: Patient is in respiratory distress with tachypnea and accessory muscle use. Breath sounds are diminished throughout with rhonchi in the bilateral bases greatest on the right Cardio Rate: tachycardic and other Other Details: Tachycardic rate with irregular rhythm consistent with atrial fibrillation GI GI Narrative: Abdomen is soft and nondistended with hypoactive bowel sounds. No pulsatile mass or fluid wave Narrative: Chronic indwelling Fierro catheter noted Extremity Extremity Narrative: Trace to +1 pitting edema to the bilateral lower extremities that is equal and symmetric Neuro Neuro Narrative: Patient is obtunded but will awake to voice. When she is stimulated and awake there is no obvious focal neurologic deficit Skin Skin Narrative: Skin turgor is increased and there is pallor noted but capillary refill remains less than 3 seconds General Skin Exam: pallor; Negative for jaundice MDM MDM MDM Narrative Medical decision making narrative: Patient presented to the ER in respiratory distress with tachypnea and accessory muscle use. According to long term and EMS he was requiring higher value of oxygen than he has been and when he was taken off oxygen his pulse ox dropped into the 60s. Secondary to this increased work of breathing he was started on BiPAP. Venous blood gas obtained at this time showed acidosis with pH of 7.21 and PCO2 of 62. Based on nursing report of recent pneumonia diagnosis he was started on the septic protocol and given 30 ml/kg fluid bolus and as well as started on vancomycin and Zosyn. COVID and influenza swabs were also obtained because of the respiratory distress and pneumonia. A chest x-ray was obtained to confirm the report from long term and did show changes consistent with atypical pneumonia. Despite the patient being on BiPAP and receiving fluid hydration his blood pressure was dropping and his mental status was worsening. It reached a point where he was no longer awaking with voice or mild stimulation and he was not protecting his airway so decision was made to perform an endotracheal intubation as patient is still a full code based on long term papers. After intubation and fluid resuscitation pressure still remained low so a central line was placed and he was started on vasopressor. At this time because of the respiratory failure with hypotension caused from the influenza he will need to be kept in the ICU for further care Patient was intubated using a 7.5 ET tube. The patient was given 15 mg of etomidate and 100 mg succinylcholine and the vocal cords were visualized with the glide scope. The 7.5 ET tube was passed without difficulty and confirmation was by color change capnography bilateral breath sounds and fogging in the tube. Patient taught the procedure well without complication Patient had a left internal jugular central line placed. The neck was cleaned and prepped in sterile fashion. The internal jugular was visualized under ultrasound. The vein was cannulated and there was return of dark red nonpulsatile blood. The guidewire threaded without difficulty. The central line was placed over top the guidewire and threaded to approximately 15 cm. After placement each port sergey and flushed without difficulty. Patient tolerated the procedure well without complication Please note that the radiologist officially read the post intubation and central line x-ray as that the central line took a steeper course than normal and could possibly be in an artery. Clinically by placement there was no pulsatile blood and the vein was visualized and showed that the needle and guidewire was within the vein and not the artery side low concern for arterial placement. I did elect to have respiratory perform an ABG from the right brachial artery and then they also sergey a gas off the central line. The right brachial artery showed a PO2 of 60 while the central line showed a PO2 of 40 indicating that it is venous and not arterial. Lab Data Attestation: I reviewed the patient's lab results. Labs: Laboratory Results - last 24 hr 07/12/22 07/12/22 07/12/22 02:41 02:41 02:41 WBC 9.5 RBC 4.48 L Hgb 12.8 L Hct 41.3 MCV 92.2 MCH 28.6 MCHC 31.0 L RDW Std Deviation 54.0 H RDW Coeff of Suraj 16.1 H Plt Count 212 MPV 9.4 Immature Gran % (Auto) CELL FEED DEPARTMENT SUPERVISOR Neut % (Auto) CELL FEED DEPARTMENT SUPERVISOR Lymph % (Auto) CELL FEED DEPARTMENT SUPERVISOR Laporte % (Auto) CELL FEED DEPARTMENT SUPERVISOR Eos % (Auto) CELL FEED DEPARTMENT SUPERVISOR Baso % (Auto) CELL FEED DEPARTMENT SUPERVISOR Absolute Neuts (auto) 8.0 H Absolute Lymphs (auto) 0.47 L Total Counted 100 Neutrophils % (Manual) 49 Band Neutrophils % 35 H Lymphocytes % (Manual) 5 L Monocytes % (Manual) 5 Metamyelocytes % 6 H Nucleated RBC % 0 Diff Path Review May foll Platelet Estimate ADEQUATE RBC Morphology NORM C+C PT INR APTT Sodium 138 Potassium 4.5 Chloride 102 Carbon Dioxide 23.0 Anion Gap 13 BUN 40 H Creatinine 1.89 H Estim Creat Clear Calc 31.54 Est GFR (MDRD) Af Amer 44 L Est GFR (MDRD) Non-Af 36 L BUN/Creatinine Ratio 21.2 H Glucose 201 H Lactic Acid Calcium 8.7 Magnesium 2.5 B-Natriuretic Peptide 166.4 H 07/12/22 07/12/22 04:02 04:02 WBC RBC Hgb Hct MCV MCH MCHC RDW Std Deviation RDW Coeff of Suraj Plt Count MPV Immature Gran % (Auto) Neut % (Auto) Lymph % (Auto) Laporte % (Auto) Eos % (Auto) Baso % (Auto) Absolute Neuts (auto) Absolute Lymphs (auto) Total Counted Neutrophils % (Manual) Band Neutrophils % Lymphocytes % (Manual) Monocytes % (Manual) Metamyelocytes % Nucleated RBC % Diff Path Review Platelet Estimate RBC Morphology PT 14.9 INR 1.2 APTT 30.6 Sodium Potassium Chloride Carbon Dioxide Anion Gap BUN Creatinine Estim Creat Clear Calc Est GFR (MDRD) Af Amer Est GFR (MDRD) Non-Af BUN/Creatinine Ratio Glucose Lactic Acid 2.8 H* Calcium Magnesium B-Natriuretic Peptide ABG Data ABG results: ABG 07/12/22 07/12/22 07/12/22 02:17 04:58 05:14 Specimen Type KTAHARINE ART KATHARINE Sample Site R Brach Central Line pH 7.30 L Bicarbonate Actual 20.4 L Total CO2 22 Base Excess -6 L O2 Saturation 87 L O2 % 40 ABG pCO2 41.7 ABG pO2 59 L Denilson Test Positive VBG pH 7.24 L 7.27 L VBG pO2 27 43 H VBG HCO3 27 H 22 VBG Total CO2 29 23 VBG O2 Sat (Calc) 38 L 72 H VBG Base Excess -1 -5 L POC Mix VBG pCO2 Pt Tmp 62.3 H 46.7 Respiration Rate 14 14 O2 Delivery Device BiPAP Adult Vent Adult Vent Vent Mode AC Tidal Volume 500 POC PEEP 5 5 Clinical Comments Radiography Diagnostic Testing: Clinical Impression(s) from Imaging Studies Chest X-Ray 07/12/22 02:11 IMPRESSION: Ill-defined subpleural groundglass opacities are seen more prominent in the lung bases , may represent atypical pneumonia or viral pneumonia . Electronically Signed: Eloy Montgomery MD at 3:08 EST Reading Location ID and State: [facility] / [place] Tel , Service support , Chest X-Ray 07/12/22 04:02 IMPRESSION: 1. Left sided central line with the distal end taking a steeper course through the mediastinum as it passes over the aortic arch. While this may be within the innominate vein leading to the SVC, arterial placement is not excluded. Correlate with blood return. A CT could provide a definitive position if necessary. 2. Enteric tube extending below the level of the GE junction into the stomach. 3. Endotracheal tube with tip 3.8 cm above the vincent. 4. Patchy bilateral airspace disease. Findings may indicate pneumonia. Electronically Signed: Robert Cook MD at 4:53 EST , ADDENDUM: 07/12/22 0504 IMPRESSION: 1. Left sided central line with the distal end taking a steeper course through the mediastinum as it passes over the aortic arch. While this may be within the innominate vein leading to the SVC, arterial placement is not excluded. Correlate with blood return. A CT could provide a definitive position if necessary. 2. Enteric tube extending below the level of the GE junction into the stomach. 3. Endotracheal tube with tip 3.8 cm above the vincent. 4. Patchy bilateral airspace disease. Findings may indicate pneumonia. N.B. : Dr. Bridger Bergman MD, confirmed on 07/12/2022 04:57:37 (ET) that the healthcare facility has received the radiology report. Electronically Signed: Robert Cook MD at 4:53 EST , Initial chest x-ray as interpreted by the emergency medicine physician shows patchy groundglass infiltrates consistent with pneumonia Repeat chest x-ray as interpreted by the emergency medicine physician after placement of ET tube central line and OG shows that the OG tube is in proper position ET tube is approximately 3-1/2 cm above the vincent and that the central line terminates near the superior vena cava without pneumothorax development. The B/L groundglass opacities consistent with pneumonia remain. Critical Care Time Critical Care Time: Yes Critical care time (excluding procedures): Discussing w/Patient &/or Family/Electromedical Equipment Repairer, Performing Direct Patient Care at Bedside and - (Please note critical care time of 47 minutes) Discharge Plan Triage Chief Complaint: Shortness of Breath ED Provider: Bridger Bergman Dx/Rx/DC Orders Clinical Impression: Acute respiratory failure with hypoxia and hypercapnia, Influenza and pneumonia, Septic shock, Atrial fibrillation, Acute kidney injury Primary Care Provider: Protection,Carolyn CELL FEED DEPARTMENT SUPERVISOR Disposition Disposition: Acute Care Hospital [facility]
--- NOTE | 2022-07-12 06:04 | HP.PCM.HOS_ITS ---
HPI - General General Date of Admission: 07/12/22 Date of Service: 07/12/22 Chief Complaint: Shortness of breath HPI Narrative JANET BERNARD, is a 82 M with a significant history of obesity and diabetes mellitus who presented from [facility] with shortness of breath for the past 2 to 3 days. History was obtained from emergency department doctor and family who was at the bedside because patient was intubated at the time of history taking. [facility] and because patient was getting increasingly worse in regard to his shortness of breath he was sent to the ED by paramedics. Patient was brought to the ED on a nonrebreather mask. When oxygen was taken off patient oxygen saturation dropped today 60s. Patient was placed on BiPAP. At the emergency department initially there was 2 IV lines on his chest that was not giving any blood return so emergency department doctor was about to place central line when he noticed that patient has stopped breathing and was less res ponsive. Patient was intubated urgently after which a central line was placed. Patient blood pressure dropped and he was given IV fluids by septic shock protocol. Because patient did not respond to IV fluids patient was started on pressors. [facility] Medical History (Updated 07/12/22 @ 06:[address] Bridger Bergman, DO) Atherosclerotic heart disease BPH (benign prostatic hyperplasia) Fracture of left pubis Fracture of sacrum Glaucoma Heart failure Morbid obesity Muscle weakness (generalized) Obstructive and reflux uropathy Osteoarthritis Paroxysmal A-fib Pulmonary embolism Sleep apnea Type 2 diabetes mellitus Unsteadiness on feet Home Medications clopidogrel 75 mg tablet 75 mg PO DAILY BLOOD THINNER 08/01/19 [History Last Taken Unknown] furosemide 80 mg tablet 40 mg PO DAILY EDEMA 08/01/19 [History Last Taken Unknown] metoprolol tartrate 50 mg tablet 25 mg PO 0800 HTN 08/01/19 [History Last Taken Unknown] pantoprazole 20 mg tablet,delayed release 20 mg PO DAILY GERD 08/01/19 [History Last Taken Unknown] probenecid 500 mg tablet 500 mg PO QHS GOUT 08/01/19 [History Last Taken Unknown ] tramadol 50 mg tablet 50 mg PO TID 08/01/19 [History Last Taken Unknown] acetaminophen 325 mg tablet 650 mg PO Q4H PRN Pain Or Fever 08/06/19 [History Last Taken Unknown] docusate sodium 100 mg capsule 100 mg PO BID CONSTIPATION 08/06/19 [History Last Taken Unknown] sennosides 8.6 mg tablet 8.6 mg PO QHS CONSTIPATION 08/06/19 [History Last Taken Unknown] ascorbic acid (vitamin C) 500 mg tablet 500 mg PO DAILY 07/12/22 [History Last Taken Unknown] empagliflozin 10 mg tablet (Jardiance) 10 mg PO DAILY 07/12/22 [History Last Taken Unknown] ergocalciferol (vitamin D2) 1,250 mcg (50,000 unit) capsule 1,250 mcg PO QWEEK 07/12/22 [History Last Taken Unknown] insulin lispro protamine-lispro 100 unit/mL (75-25) subcutaneous pen (Humalog Mix 75-25 KwikPen) 15 unit subcut BID 07/12/22 [History Last Taken Unknown] latanoprost 0.005 % eye drops 1 drp EACH EYE DAILY 07/12/22 [History Last Taken Unknown] pravastatin 10 mg tablet 10 mg PO DAILY 07/12/22 [History Last Taken Unknown] Allergy/AdvReac Type Severity Reaction Status Date / Time allopurinol AdvReac Other Verified 07/12/22 02:31 dulaglutide [From Trulicity] AdvReac PT UNABLE Verified 07/12/22 02:31 TO RESPOND-NEEDS F/U exenatide [From Byetta] AdvReac Other Verified 07/12/22 02:31 insulin aspart [From Novolog] AdvReac Other Verified 07/12/22 02:31 insulin glargine, human AdvReac Other Verified 07/12/22 02:31 recombin. a [From Lantus] morphine AdvReac Other Verified 07/12/22 02:31 pioglitazone [From Actos] AdvReac PT UNABLE Verified 07/12/22 02:31 TO RESPOND-NEEDS F/U rosiglitazone [From Avandia] AdvReac PT UNABLE Verified 07/12/22 02:31 TO RESPOND-NEEDS F/U rosuvastatin AdvReac PT UNSURE Verified 07/12/22 02:31 OF REACTION [id number] Reductase AdvReac Other Verified 07/12/22 02:31 Inhibitor [[id number]-Tpb Reductase Inhibitor] Family History (Updated 07/12/22 @ 06:[address] Lux Mitchell MD) Other CVA (cerebral vascular accident) Cancer Heart disease Surgical History (Updated 07/12/22 @ 06:[address] Lux Mitchell MD) Amputation toe Social History Smoking Status: Former smoker ROS Review of Systems ROS Unobtainable: due to mental condition Vital Signs Vital Signs Vital Signs: 07/12/22 01:59 07/12/22 02:04 07/12/22 02:06 Temperature 96.6 F L Temperature Source Temporal Pulse Rate 112 H 110 H Respiratory Rate 31 H 30 H Respiratory Effort Short of Breath Accessory Muscle Use Head Bobbing Respiratory Depth Deep Respiratory Pattern Tachypnea Blood Pressure 83/64 L Blood Pressure Mean 70 Blood Pressure Source Blood Pressure Position Blood Pressure Location Pulse Ox 75 95 Oxygen Delivery Method Room Air Bi-pap Room Air Oxygen Flow Rate (L/min) 100 Fraction of Inspired Oxygen (FIO2) 07/12/22 02:15 07/12/22 03:13 07/12/22 03:27 Temperature Temperature Source Pulse Rate 116 H 95 Respiratory Rate 38 H 13 Respiratory Effort Short of Breath Respiratory Depth Respiratory Pattern Tachypnea Apnea Blood Pressure 84/51 L Blood Pressure Mean 62 Blood Pressure Source Blood Pressure Position Blood Pressure Location Pulse Ox 100 97 Oxygen Delivery Method Mechanical Ventilator Mechanical Ventilator Oxygen Flow Rate (L/min) 100 Fraction of Inspired Oxygen (FIO2) 100 07/12/22 03:04 07/12/22 03:43 07/12/22 04:00 Temperature 96.6 F L Temperature Source Temporal Pulse Rate 103 H 90 100 Respiratory Rate 15 18 19 H Respiratory Effort Respiratory Depth Respiratory Pattern Blood Pressure 84/51 L 72/43 L 80/48 L Blood Pressure Mean 62 52 58 Blood Pressure Source Blood Pressure Position Blood Pressure Location Pulse Ox 97 100 100 Oxygen Delivery Method Mechanical Ventilator Mechanical Ventilator Mechanical Ventilator Oxygen Flow Rate (L/min) 100 100 100 Fraction of Inspired Oxygen (FIO2) 07/12/22 04:27 07/12/22 03:35 07/12/22 04:55 Temperature 96.9 F L Temperature Source Temporal Pulse Rate 93 82 Respiratory Rate 15 14 19 H Respiratory Effort Respiratory Depth Respiratory Pattern Normal Blood Pressure 77/49 L 72/48 L Blood Pressure Mean 58 56 Blood Pressure Source Monitor Blood Pressure Position Supine Blood Pressure Location Left Arm Pulse Ox 100 94 Oxygen Delivery Method Mechanical Ventilator Mechanical Ventilator Oxygen Flow Rate (L/min) Fraction of Inspired Oxygen (FIO2) 60 100 50 07/12/22 05:00 07/12/22 05:10 07/12/22 05:20 Temperature 96.9 F L 96.9 F L 97 F L Temperature Source Temporal Temporal Temporal Pulse Rate 91 99 97 Respiratory Rate 17 14 13 Respiratory Effort Respiratory Depth Respiratory Pattern Blood Pressure 89/58 L 103/69 130/86 H Blood Pressure Mean 68 80 100 Blood Pressure Source Blood Pressure Position Blood Pressure Location Pulse Ox 96 95 96 Oxygen Delivery Method Mechanical Ventilator Mechanical Ventilator Mechanical Ventilator Oxygen Flow Rate (L/min) Fraction of Inspired Oxygen (FIO2) 50 50 50 07/12/22 05:21 07/12/22 05:00 07/12/22 05:29 Temperature 97 F L 97 F L Temperature Source Temporal Temporal Pulse Rate 99 98 96 Respiratory Rate 14 17 14 Respiratory Effort Respiratory Depth Respiratory Pattern Blood Pressure 130/86 H 89/58 L 82/53 L Blood Pressure Mean 100 68 62 Blood Pressure Source Monitor Monitor Blood Pressure Position Supine Supine Blood Pressure Location Left Arm Left Arm Pulse Ox 96 96 94 Oxygen Delivery Method Mechanical Ventilator Mechanical Ventilator Mechanical Ventilator Oxygen Flow Rate (L/min) Fraction of Inspired Oxygen (FIO2) 50 60 50 07/12/22 05:36 07/12/22 05:47 07/12/22 05:56 Temperature 97.2 F L Temperature Source Temporal Pulse Rate 97 97 107 H Respiratory Rate 18 16 19 H Respiratory Effort Respiratory Depth Respiratory Pattern Blood Pressure 104/67 106/63 100/63 Blood Pressure Mean 79 77 75 Blood Pressure Source Blood Pressure Position Blood Pressure Location Pulse Ox 96 98 97 Oxygen Delivery Method Mechanical Ventilator Mechanical Ventilator Mechanical Ventilator Oxygen Flow Rate (L/min) Fraction of Inspired Oxygen (FIO2) 60 60 60 Weight Weight: 101.5 kg Body Mass Index (BMI) 31.1 Physical Exam Narrative Physical exam: General: Well-nourished, well-developed. Head: Normocephalic, atraumatic, no tenderness Eyes: Intubated and on mechanical ventilation ENT: ET tube in place Neck: Nontender, No thyromegaly. CVS: Regular rate and rhythm. S1-S2 present. No murmur, gallop or rub. Respiratory : Some Rales; chest wall nontender, no wheezing Abdomen: Soft, nontender, nondistended, normal bowel sounds, no masses : Fierro catheter in place Back: Nontender, no CVA tenderness Extremities: Loss of left halluces. No edema. Skin: Normal color, no trauma, abrasions Neuro: Intubated on mechanical ventilation. Obtunded but with some movements. Psychiatry: Intubated mechanical ventilation. Results Lab / Micro Data Result Diagrams: 07/12/22 02:41 07/12/22 02:41 Labs: Laboratory Results - last 24 hr 07/12/22 02:41: WBC 9.5, RBC 4.48 L, Hgb 12.8 L, Hct 41.3, MCV 92.2, MCH 28.6, MCHC 31.0 L, RDW Std Deviation 54.0 H, RDW Coeff of Suraj 16.1 H, Plt Count 212, MPV 9.4, Immature Gran % (Auto) [employer]PUTER [employer]S ENGINEER, Neut % (Auto) COMPUTER APPLICATIONS ENGINEER, Lymph % (Auto) COMPUTER APPLICATIONS ENGINEER, Dubois % (Auto) COMPUTER APPLICATIONS ENGINEER, Eos % (Auto) COMPUTER APPLICATIONS ENGINEER, Baso % (Auto) COMPUTER APPLICATIONS ENGINEER, Absolute Neuts (auto) 8.0 H, Absolute Lymphs (auto) 0.47 L, Total Counted 100, Neutrophils % (Manual) 49, Band Neutrophils % 35 H, Lymphocytes % (Manual) 5 L, Monocytes % (Manual) 5, Metamyelocytes % 6 H, Nucleated RBC % 0, Diff Path Review May , Platelet Estimate ADEQUATE, RBC Morphology NORM C+C 07/12/22 02:41: Sodium 138, Potassium 4.5, Chloride 102, Carbon Dioxide 23.0, Anion Gap 13, BUN 40 H, Creatinine 1.89 H, Estim Creat Clear Calc 31.54, Est GFR (MDRD) Af Amer 44 L, Est GFR (MDRD) Non-Af 36 L, BUN/Creatinine Ratio 21.2 H, Glucose 201 H, Calcium 8.7, Magnesium 2.5 07/12/22 02:41: B-Natriuretic Peptide 166.4 H 07/12/22 04:02: PT 14.9, INR 1.2, APTT 30.6 07/12/22 04:02: Lactic Acid 2.8 H* Micro: Microbiology 07/12/22 02:12 Nasal Secretion SARS-CoV-2 & FLU Antigen (Rapid) - Final Influenzae A ABG Data ABG results: ABG 07/12/22 07/12/22 07/12/22 02:17 04:58 05:14 Specimen Type KATHARINE ART KATHARINE Sample Site R Brach Central Line pH 7.30 L Bicarbonate Actual 20.4 L Total CO2 22 Base Excess -6 L O2 Saturation 87 L O2 % 40 ABG pCO2 41.7 ABG pO2 59 L Denilson Test Positive VBG pH 7.24 L 7.27 L VBG pO2 27 43 H VBG HCO3 27 H 22 VBG Total CO2 29 23 VBG O2 Sat (Calc) 38 L 72 H VBG Base Excess -1 -5 L POC Mix VBG pCO2 Pt Tmp 62.3 H 46.7 Respiration Rate 14 14 O2 Delivery Device BiPAP Adult Vent Adult Vent Vent Mode AC Tidal Volume 500 POC PEEP 5 5 Clinical Comments Radiology Impression Chest X-Ray 07/12/22 02:11 IMPRESSION: Ill-defined subpleural groundglass opacities are seen more prominent in the lung bases , may represent atypical pneumonia or viral pneumonia . Electronically Signed: Eloy Montgomery MD at 3:08 EST , Chest X-Ray 07/12/22 04:02 IMPRESSION: 1. Left sided central line with the distal end taking a steeper course through the mediastinum as it passes over the aortic arch. While this may be within the innominate vein leading to the SVC, arterial placement is not excluded. Correlate with blood return. A CT could provide a definitive position if necessary. 2. Enteric tube extending below the level of the GE junction into the stomach. 3. Endotracheal tube with tip 3.8 cm above the vincent. 4. Patchy bilateral airspace disease. Findings may indicate pneumonia. Electronically Signed: Robert Cook MD at 4:53 EST , ADDENDUM: 07/12/22 0504 IMPRESSION: 1. Left sided central line with the distal end taking a steeper course through the mediastinum as it passes over the aortic arch. While this may be within the innominate vein leading to the SVC, arterial placement is not excluded. Correlate with blood return. A CT could provide a definitive position if necessary. 2. Enteric tube extending below the level of the GE junction into the stomach. 3. Endotracheal tube with tip 3.8 cm above the vincent. 4. Patchy bilateral airspace disease. Findings may indicate pneumonia. N.B. : Dr. Bridger Bergman MD, confirmed on 07/12/2022 04:57:37 (ET) that the healthcare facility has received the radiology report. Electronically Signed: Robert Cook MD at 4:53 EST , Assessment & Plan Assessment/Plan (1) Acute respiratory failure with hypoxia and hypercapnia: (2) Influenza and pneumonia: (3) Septic shock: (4) Acute kidney injury: (5) Atrial fibrillation: PLAN: Plan Acute metabolic encephalopathy; acute respiratory failure with hypoxia and hypercapnia; septic shock; The patient presented with sepsis due to (pneumonia) with acute sepsis related organ dysfunction as evidenced by (hypotension, lactic acidosis, acute encephalopathy; acute respiratory failure). SIRS criteria: Patient with respiratory rate more than 20 and heart rate more than 90 Respiratory rate more than 20 Lactic acid of 2.8 trend. Chest x-ray showed multifocal infiltrates. Chest x-ray was visualized and I agree radiologist interpretation. Received 30 mL/kg bolus of normal saline and was started on pressors as patient did not respond to fluids. Norepinephrine continued. Hold home Lasix Trend BMP. Blood cultures and sputum Cultures ordered at the ED, follow. With chronic Fierro leg content contaminants. Vancomycin and Zosyn ordered. Influenza Rapid COVID-negative. Influenza A positive. Tamiflu ordered. Acute kidney injury on CKD stage IIIa. Creatinine presentation was 1.89. Baseline creatinine is around 1.48 CKD likely secondary to diabetes. Avoid nephrotoxic's. Received normal saline bolus by septic shock protocol. Placed on pressors. Will trend BMP. We will hold off further IV fluids. A. fib with RVR Patient with a history of A. fib and was A. fib with RVR on presentation. Controlled with IV fluids. On Plavix, continued. Diabetes mellitus Patient with hyperglycemia on presentation Empagliflozin continued Home basal insulin adjusted. Monitor Accu-Cheks Correction scale insulin ordered. Stage II pressure ulcer Calmoseptine cream and Allevyn adhesive ordered. DVT prophylaxis Subcutaneous Lovenox ordered. Sepsis Attestation Date exam was performed: 07/12/22 Time exam was performed: Possible Source of Sepsis: Pulmonary Sepsis Organ Dysfunction Criteria Present: SBP < 90 mmHg or MAP < 65 mmHg and Lactic Acid > 2 mmol/L Fluid Resuscitation Fluid resuscitation indicated?: Yes Fluid Resuscitation ordered: 30 ml/kg fluid bolus ordered Sepsis Note Date exam was performed: 07/12/22 Time exam was performed: :24 Sepsis Attestation: Sepsis re-evaluation was performed Response to fluids: Non Fluid responsive hypotension and Vasopressors started Charges/Coding Visit Charges Inpatient E&M: 20661 Init Hosp L3
[2022-07-12] MEDS: Propofol 10MG/Ml 1,000 MG/100 ML Bottle 6.1 MG CONT INF (06:40)
[2022-07-12 07:13] LABS: CPK Total, Creatine Kinase 32 U/L (39-308); Triglycerides 74 mg/dL
--- NOTE | 2022-07-12 07:32 | PCM.RX.CS ---
Consult Pharmacy has been consulted to manage selected antiobiotic: Vancomycin Type of Consult: New start Suspected Infection: Sepsis, Pneumonia Prior Doses of Antibiotics Received/Current Regimen: Received 1500mg IV x1 per ER order starting at 06:49 today Labs: Sodium 138 mmol/L (136-145) 07/12/22 02:41 Potassium 4.5 mmol/L (3.5-5.1) 07/12/22 02:41 Chloride 102 mmol/L (98-107) 07/12/22 02:41 Carbon Dioxide 23.0 mmol/L (21.0-32.0) 07/12/22 02:41 Anion Gap 13 (5-15) 07/12/22 02:41 BUN 40 mg/dL (7-18) H 07/12/22 02:41 Creatinine 1.89 mg/dL (0.70-1.30) H 07/12/22 02:41 Est GFR (MDRD) Af Amer 44 mL/min (>60) L 07/12/22 02:41 Est GFR (MDRD) Non-Af 36 mL/min (>60) L 07/12/22 02:41 BUN/Creatinine Ratio 21.2 RATIO (10-20) H 07/12/22 02:41 Glucose 201 mg/dL (74-106) H 07/12/22 02:41 Microbiology: Microbiology 07/12/22 02:12 Nasal Secretion SARS-CoV-2 & FLU Antigen (Rapid) - Final Influenzae A Weight used for dosin.5 kg Estimated Creatinine Clearance: 35.9ml/min Goal Trough: 15-20 mcg/mL Pharmacy Plan for Drug Dosing: Starting 24 hours after the ER dose, continue with vanc 1500mg IV q24h per [facility] dosing protocol. Will order a trough before the 3rd dose. The patient's CrCl of 35.9ml/min was calculated using an adjusted body weight of 85.8kg. Pharmacy Service will continue to monitor and adjust dosing as required. Follow-Up Labs: Trough Vancomycin Labs to be done on [date and time ordered]: 07/14/22 06:30
[2022-07-12] MEDS: OSELTAMIVIR PHOSPHATE 6 MG/ML BOTTLE 30 MG PO ×2 (08:04→16:18)
[2022-07-12 08:06] LABS: Reflex Lactate? Y
[2022-07-12] MEDS: Insulin Human 75/25 Kwickpen 10 UNIT SC ×2 (08:07→16:18)
[2022-07-12] MEDS: Chlorhexidine 15 ML PO ×2 (08:15→20:48)
[2022-07-12] MEDS: Insulin Lispro 100 UNIT/ML INSULN.PEN SC ×2 (08:15→16:18)
[2022-07-12] MEDS: Menthol/Lanolin/Calamine/Znox 113 GM Tube 1 APPLIC TOPICAL ×2 (08:15→20:48)
[2022-07-12 08:46] LABS: Bedside Glucose 191 mg/dL (74-106)
[2022-07-12 09:05] LABS: Lactic Acid 2.2 mmol/L (0.4-1.9)
[2022-07-12] MEDS: Clopidogrel Bisulfate 75 MG Tablet PO (10:27)
[2022-07-12] MEDS: Empagliflozin 10 MG Tablet PO (10:28)
[2022-07-12] MEDS: Ascorbic Acid 500 MG Tablet PO (10:28)
[2022-07-12] MEDS: Enoxaparin 40 MG/0.4 ML Syringe SC (10:28)
--- NOTE | 2022-07-12 10:30 | CON.PCM.CC_ITS ---
Assessment & Plan Assessment/Plan (1) Acute respiratory failure with hypoxia and hypercapnia: (2) Influenza and pneumonia: (3) Septic shock: PLAN: Plan RECOMMENDATIONS: 1. Continue mechanical support for now. Wean FiO2 as tolerated 2. Wean pressors as tolerated to maintain MAP greater than 65 3. Agree with empiric antibiotics pending culture data 4. Hold baseline antihypertensive and diuretics 5. Aggressive rate control. Hold anticoagulation 6. Wound care for pressure ulcer IMPRESSIONS: 1. Acute combined respiratory failure secondary to influenza A Patient appears to be improving from an FiO2 standpoint following intubation. This is likely secondary to recruitment. Mechanical ventilation will be continued for now, but this may be readdressed once family arrives. Continue to wean FiO2 as tolerated. Spontaneous breathing and awakening trials per protocol. 2. Septic shock secondary to influenza A with possible superinfection Patient with significant infiltrates on CT scan, but also has an indwelling catheter. Some concern for influenza with a superinfection. This may be secondary to the indwelling catheter versus pneumonia with staff aureus. Patient is on broad-spectrum antibiotics. Patient is at risk for skin infection also given ulcerations. Continue pressors for now. Hold Lasix. Likely not necessary to obtain further lactate levels. 3. A. fib with RVR Rate appears to be relatively controlled at this time. Okay to continue with Plavix. Would not recommend systemic anticoagulation given instability. 4. Diabetes mellitus/CKD stage IIIa/stage II pressure ulcer/advanced age/obesity/chronic pain syndrome Complicates care, management, recovery and prognosis. Wound nurse to evaluate pressure wounds. We will need to watch blood sugars closely as patient could have issues with hypoglycemia from endogenous steroid response. Patient currently on a fentanyl drip this will be continued while intubated. TIME: 40 minutes critical care time spent addressing patient's respiratory failure, septic shock, diabetes, clarifying goals of therapy, review of all data and collaboration with care team HPI Consult Data Date of Consult: 07/12/22 HPI Narrative Reason for Consultation: Respiratory failure HPI Narrative: JANET BERNARD is an 82 M, with past medical history listed below, who presents to [facility] 07/12/2022 secondary to worsening shortness of breath and productive cough. Patient reportedly had fallen at home secondary to neuropathy and balance issues approximately 4 to 6 weeks ago. Patient had a nonoperative sacral and pelvic fracture and had to go to a residential for rehab. Over the holiday, patient had many visitors and some of them were sick. Patient started cough 3 days ago that was productive. [facility] reportedly did an x-ray yesterday and was started on antibiotics. However, given increasing supplemental oxygen requirements and difficulty breathing he was sent to the ER for evaluation. In the ER, patient was afebrile, but tachycardic at 116 beats/min and tachypneic at 38 breaths/min. Patient was hypotensive at 83/64. An attempt was made to place a central line secondary to hypotension and lack of IV access and patient developed respiratory distress and had to be intubated. Laboratory work-up showed a white blood cell count of 9.5, hemoglobin of 12.8 and platelet of 212. Chemistry showed a creatinine of 1.89 with a bicarbonate of 23 and a BNP of 166. Coagulation studies were within normal limits. Initial lactate was elevated at 2.8. A VBG done on BiPAP therapy showing significant acidosis with a pH of 7.24. An ABG following intubation showed a metabolic acidosis with increased AA gradient. Patient had a chest x-ray showing appropriate placement of supportive devices with patchy infiltrates bilaterally. Patient subsequently found to have influenza. Patient transferred to the intensive care unit on pressors, antibiotics and mechanical ventilation. Patient reportedly has a chronic indwelling Fierro since being at the residential Since being in the intensive care unit, patient's status has somewhat improved. Patient is able to have pressors and supplemental oxygen wean. Patient does remain on sedation. Family is at the bedside. Family has stated they are unclear if the patient would really want this. Patient does have a daughter that is currently on her way from [place] and they would like to continue with supportive measures for now. There is some discussion about using a palliative approach after family is able to arrive. Unable to obtain review of systems secondary to intubation and sedation. [facility] Medical History Atherosclerotic heart disease BPH (benign prostatic hyperplasia) Fracture of left pubis Fracture of sacrum Glaucoma Heart failure Morbid obesity Muscle weakness (generalized) Obstructive and reflux uropathy Osteoarthritis Paroxysmal A-fib Pulmonary embolism Sleep apnea Type 2 diabetes mellitus Unsteadiness on feet Home Medications clopidogrel 75 mg tablet 75 mg PO DAILY BLOOD THINNER 08/01/19 [History Last Taken Unknown] furosemide 80 mg tablet 40 mg PO DAILY EDEMA 08/01/19 [History Last Taken Unknown] metoprolol tartrate 50 mg tablet 25 mg PO 0800 HTN 08/01/19 [History Last Taken Unknown] pantoprazole 20 mg tablet,delayed release 20 mg PO DAILY GERD 08/01/19 [History Last Taken Unknown] probenecid 500 mg tablet 500 mg PO QHS GOUT 08/01/19 [History Last Taken Unk nown] tramadol 50 mg tablet 50 mg PO TID 08/01/19 [History Last Taken Unknown] acetaminophen 325 mg tablet 650 mg PO Q4H PRN Pain Or Fever 08/06/19 [History Last Taken Unknown] docusate sodium 100 mg capsule 100 mg PO BID CONSTIPATION 08/06/19 [History Last Taken Unknown] sennosides 8.6 mg tablet 8.6 mg PO QHS CONSTIPATION 08/06/19 [History Last Taken Unknown] ascorbic acid (vitamin C) 500 mg tablet 500 mg PO DAILY 07/12/22 [History Last Taken Unknown] empagliflozin 10 mg tablet (Jardiance) 10 mg PO DAILY 07/12/22 [History Last Taken Unknown] ergocalciferol (vitamin D2) 1,250 mcg (50,000 unit) capsule 1,250 mcg PO QWEEK 07/12/22 [History Last Taken Unknown] insulin lispro protamine-lispro 100 unit/mL (75-25) subcutaneous pen (Humalog Mix 75-25 KwikPen) 15 unit subcut BID 07/12/22 [History Last Taken Unknown] latanoprost 0.005 % eye drops 1 drp EACH EYE DAILY 07/12/22 [History Last Taken Unknown] pravastatin 10 mg tablet 10 mg PO DAILY 07/12/22 [History Last Taken Unknown] Allergy/AdvReac Type Severity Reaction Status Date / Time allopurinol AdvReac Other Verified 07/12/22 02:31 dulaglutide [From Trulicity] AdvReac PT UNABLE Verified 07/12/22 02:31 TO RESPOND-NEEDS F/U exenatide [From Byetta] AdvReac Other Verified 07/12/22 02:31 insulin aspart [From Novolog] AdvReac Other Verified 07/12/22 02:31 insulin glargine, human AdvReac Other Verified 07/12/22 02:31 recombin. a [From Lantus] morphine AdvReac Other Verified 07/12/22 02:31 pioglitazone [From Actos] AdvReac PT UNABLE Verified 07/12/22 02:31 TO RESPOND-NEEDS F/U rosiglitazone [From Avandia] AdvReac PT UNABLE Verified 07/12/22 02:31 TO RESPOND-NEEDS F/U rosuvastatin AdvReac PT UNSURE Verified 07/12/22 02:31 OF REACTION Ywulsvq-BNL-FkV Reductase AdvReac Other Verified 07/12/22 02:31 Inhibitor [Cadvnjl-Edg-Rqa Reductase Inhibitor] Family History Other CVA (cerebral vascular accident) Cancer Heart disease Surgical History Amputation toe Social History Smoking Status: Former smoker ROS Review of Systems ROS Unobtainable: due to endotracheal tube and due to mental status Physical Exam Const Constitutional Narrative: Intubated and sedated. Appears stated age. Good vent synchrony. Obese. General Appearance: patient mechanically ventilated HEENT normocephalic and head/scalp atraumatic Mouth: endotracheal tube in place and OG tube in place Eyes PERRL, conjunctivae normal and no scleral icterus Neck no JVD General: trachea midline and CVC in place Resp Auscultation: rhonchi lower bilaterally; Negative for rales or wheezes Cardio S1 normal heart sound, S2 normal heart sound, no murmurs, no rub and no gallops Rate: tachycardic GI normal to inspection, nondistended, normoactive bowel sounds Extremity no clubbing, cyanosis or edema Neuro Sensorium / Orientation: sedated on vent Psych Mood & Affect: flat affect Lab / Micro Data Attestation: I reviewed the patient's lab results. Result Diagrams: 07/12/22 02:41 07/12/22 02:41 Labs: Laboratory Results - last 24 hr 07/12/22 02:41: WBC 9.5, RBC 4.48 L, Hgb 12.8 L, Hct 41.3, MCV 92.2, MCH 28.6, MCHC 31.0 L, RDW Std Deviation 54.0 H, RDW Coeff of Suraj 16.1 H, Plt Count 212, MPV 9.4, Immature Gran % (Auto) INTERVENTIONAL CARDIOLOGIST, Neut % (Auto) INTERVENTIONAL CARDIOLOGIST, Lymph % (Auto) INTERVENTIONAL CARDIOLOGIST, [place] % (Auto) INTERVENTIONAL CARDIOLOGIST, Eos % (Auto) INTERVENTIONAL CARDIOLOGIST, Baso % (Auto) INTERVENTIONAL CARDIOLOGIST, Absolute Neuts (auto) 8.0 H, Absolute Lymphs (auto) 0.47 L, Total Counted 100, Neutrophils % (Manual) 49, Band Neutrophils % 35 H, Lymphocytes % (Manual) 5 L, Monocytes % (Manual) 5, Metamyelocytes % 6 H, Nucleated RBC % 0, Diff Path Review November, Platelet Estimate ADEQUATE, RBC Morphology NORM C+C 07/12/22 02:41: Sodium 138, Potassium 4.5, Chloride 102, Carbon Dioxide 23.0, Anion Gap 13, BUN 40 H, Creatinine 1.89 H, Estim Creat Clear Calc 31.54, Est GFR (MDRD) Af Amer 44 L, Est GFR (MDRD) Non-Af 36 L, BUN/Creatinine Ratio 21.2 H, Glucose 201 H, Calcium 8.7, Magnesium 2.5 07/12/22 02:41: B-Natriuretic Peptide 166.4 H 07/12/22 04:02: PT 14.9, INR 1.2, APTT 30.6 07/12/22 04:02: Lactic Acid 2.8 H* 07/12/22 04:02: Total Creatine Kinase 32 L, Triglycerides 74 07/12/22 08:01: POC Glucose 191 H 07/12/22 08:20: Lactic Acid 2.2 H* Micro: Microbiology 07/12/22 02:12 Nasal Secretion SARS-CoV-2 & FLU Antigen (Rapid) - Final Influenzae A ABG Data ABG results: ABG 07/12/22 07/12/22 07/12/22 02:17 04:58 05:14 Specimen Type KATHARINE ART KATHARINE Sample Site R Brach Central Line pH 7.30 L Bicarbonate Actual 20.4 L Total CO2 22 Base Excess -6 L O2 Saturation 87 L O2 % 40 ABG pCO2 41.7 ABG pO2 59 L Denilson Test Positive VBG pH 7.24 L 7.27 L VBG pO2 27 43 H VBG HCO3 27 H 22 VBG Total CO2 29 23 VBG O2 Sat (Calc) 38 L 72 H VBG Base Excess -1 -5 L POC Mix VBG pCO2 Pt Tmp 62.3 H 46.7 Respiration Rate 14 14 O2 Delivery Device BiPAP Adult Vent Adult Vent Vent Mode AC Tidal Volume 500 POC PEEP 5 5 Clinical Comments Radiology Impression Chest X-Ray 07/12/22 02:11 IMPRESSION: Ill-defined subpleural groundglass opacities are seen more prominent in the lung bases , may represent atypical pneumonia or viral pneumonia . Electronically Signed: Eloy Montgomery MD at 3:08 EST , Chest X-Ray 07/12/22 04:02 IMPRESSION: 1. Left sided central line with the distal end taking a steeper course through the mediastinum as it passes over the aortic arch. While this may be within the innominate vein leading to the SVC, arterial placement is not excluded. Correlate with blood return. A CT could provide a definitive position if necessary. 2. Enteric tube extending below the level of the GE junction into the stomach. 3. Endotracheal tube with tip 3.8 cm above the vincent. 4. Patchy bilateral airspace disease. Findings may indicate pneumonia. Electronically Signed: Robert Cook MD at 4:53 EST , ADDENDUM: 07/12/22 0504 IMPRESSION: 1. Left sided central line with the distal end taking a steeper course through the mediastinum as it passes over the aortic arch. While this may be within the innominate vein leading to the SVC, arterial placement is not excluded. Correlate with blood return. A CT could provide a definitive position if necessary. 2. Enteric tube extending below the level of the GE junction into the stomach. 3. Endotracheal tube with tip 3.8 cm above the vincent. 4. Patchy bilateral airspace disease. Findings may indicate pneumonia. N.B. : Dr. Bridger Bergman MD, confirmed on 07/12/2022 04:57:37 (ET) that the healthcare facility has received the radiology report. Electronically Signed: Robert Cook MD at 4:53 EST , Charges/Coding Procedures Hospitalists Procedures: [id number] Critial Care 1st Hr
[2022-07-12] MEDS: Vital AF 1.2 Cal Liquid 1,000 ML 25 ML GT (10:33)
--- NOTE | 2022-07-12 11:12 | NURSING ---
Patient arrived with carmona catheter from [facility]. Urine culture from carmona obtained and carmona removed. Urethra bleeding and abrasion noted on opening of urethra. Patient uncircumsized, retracted skin and large amount of white/yellow sediment noted. Cleaned with bath wipes. New core temp carmona placed under sterile procedure. Dr. Gay aware.
[2022-07-12 13:06] LABS: Bedside Glucose 146 mg/dL (74-106)
[2022-07-12] MEDS: Propofol 10MG/Ml 1,000 MG/100 ML Bottle 12.2 MG CONT INF (14:15)
--- NOTE | 2022-07-12 14:52 | CASEMGMT ---
Social Work Pt is here from [facility]. As per CM, family deciding on goals of care. SW sent updates to [facility] via [employer]. SW spoke w/daughter Adrianna and son in law James, and Catherine at the bedside. Daughter explains that they are likely going to go with comfort care tomorrow, waiting for daughter from [place] to arrive. Support offered to family. SW remains availalable for support as needed. JASON Sellers
--- NOTE | 2022-07-12 15:14 | CHAPLAIN ---
Type of Pastoral Visit _x__ Initial Visit ___ Follow-up Visit ___ On-call Visit ___ General Patient Visit ___ Spiritual Assessment ___ Family Conference ___ Bereavement ___ Rapid Response ___ Code Blue ___ Other (describe below) Pastoral Care Referral From ___ Patient _x__ Family ___ Nurse ___ Physician ___ Cloth Checker ___ Housekeeping And Laundry Team Leader ___ Other (describe below) Sacrament/Intervention _x__ Active listening ___ Anointing ___ Jain ___ Bereavement ___ Communion _x__ Prema exploration ___ _x__ Life review _x__ Prayer ___ Reconciliation ___ Sacrament of Sick _x__ Supportive presence ___ Wedding ___ Other (describe below) Pastoral Comments patient is on a ventilator; pt has been seen before in previous admissions; pt has spoken to this salad bar clerk before about his prema in God and his oriental orthodox attendance; pt has come from [facility]; left a calling card; went later to room and found the spouse, daughter, and son-in-law; all are receptive of spiritual care support; pt daughter does most of the talking for family and expresses that once her sister comes into town tomorrow then everything should be in place to remove the tube; family expects patient to pass away but state that their prema is strong; family given time to talk about the patient and their feelings; family welcomes prayer at bedside
[2022-07-12 16:35] LABS: Bedside Glucose 157 mg/dL (74-106)
[2022-07-12] MEDS: Pravastatin 20 MG Tablet 10 MG PO (20:48)
[2022-07-12] MEDS: Latanoprost 0.005% 1 Bottle 1 DRP EACH EYE (20:49)
[2022-07-12] MEDS: Senna Tablet 1 TABLET PO (20:49)
[2022-07-13] VITALS (32 sets, daily range): BP systolic 86–141; BP diastolic 49–81; PULSE 97–134; RESP 14–25; TEMP 36.3–36.6; O2SAT 92–97
[2022-07-13] MEDS: Insulin Lispro 100 UNIT/ML INSULN.PEN SC ×3 (00:31→11:50)
[2022-07-13 00:51] LABS: Bedside Glucose 169 mg/dL (74-106)
[2022-07-13 04:12] LABS: Absolute Lymphocyte Count 0.76 X10^3/uL (0.83-4.51); Absolute Neutrophil Count 6.5 X10^3/uL (2.0-7.7); Basophil# 0.04 X10^3/uL; Basophil% 0.5 % (0-1); Eosinophil# 0.02 X10^3/uL; Eosinophils% 0.2 % (0-5); Hematocrit 36.3 % (40-54); Hemoglobin 11.2 g/dL (13.0-16.5); Lymphocyte # 0.76 X10^3/ul (0.83-4.51); Lymphocyte % 9.5 % (19-41); Mean Corp Hgb Conc 30.9 g/dL (32-36); Mean Corpuscular Hgb 28.4 pg (27.0-32.0); Mean Corpuscular Volume 91.9 fL (80-94); Mean Platelet Vol. 9.3 fl (6.2-12.0); Monocyte# 0.42 X10^3/uL; Monocyte% 5.2 % (0-10); NRBC Flagged by Analyzer 0.2 % (0-5); Neutrophil # 6.53 X10^3/uL (2.7-7.7); Neutrophil % 81.6 % (47-70); POSITIVE MORPHOLOGY YES; Platelet Count 227 K/mm3 (150-450); RBC Distribution Width CV 16.6 % (11.6-14.6); RBC Distribution Width SD 56.1 fl (35.1-43.9); Red Blood Count 3.95 M/mm3 (4.6-6.2)
[2022-07-13 04:22] LABS: Differential Indicated SCAN CRITERIA MET
[2022-07-13 04:23] LABS: Differential Comment SCANNED
[2022-07-13 04:25] LABS: Anion Gap 9 (5-15); BUN 37 mg/dL (7-18); Calcium,Total 8.4 mg/dL (8.5-10.1); Chloride 110 mmol/L (98-107); Creatinine, Serum 1.54 mg/dL (0.70-1.30); EST Glomerular Filtration Rate 46 mL/min (>60); Est Glom Filt Rate - Afr Amer 56 mL/min (>60); Estimated Creatinine Clearance 37.53 ml/min; Glucose 214 mg/dL (74-106); Magnesium 2.4 mg/dL (1.6-2.6); Potassium 3.2 mmol/L (3.5-5.1); Sodium Level 143 mmol/L (136-145)
[2022-07-13 04:28] LABS: Phosphorus 2.6 mg/dL (2.5-4.9)
--- NOTE | 2022-07-13 05:16 | NURSING ---
Propofol turned off at 0400 to perform awakening trial per protocol. Fentanyl decreased to 50. At 0500 pt was failed due to Afib/Tachycardia with rates in the 130s-140s with minor stimulation. This, coupled with the frequency of ectopic beats, caused him to fail his awakening trial and sedation was resumed at previous settings. Will continue to monitor.
[2022-07-13] MEDS: Insulin Human 75/25 Kwickpen 10 UNIT SC (05:49)
[2022-07-13] MEDS: Potassium Chloride Oral Soln 20 MEQ/15 ML UDC 40 MEQ PO (06:18)
[2022-07-13 06:20] LABS: Bedside Glucose 196 mg/dL (74-106)
[2022-07-13] MEDS: CHLORHEXIDINE GLUC 2% CLOTH 1 EACH TOWELETTE TOPICAL (07:49)
--- NOTE | 2022-07-13 08:18 | PN.CC_ITS ---
Assessment & Plan Assessment/Plan (1) Acute respiratory failure with hypoxia and hypercapnia: (2) Influenza and pneumonia: (3) Septic shock: PLAN: Plan RECOMMENDATIONS: 1. Continue mechanical support for now. Wean FiO2 as tolerated 2. Wean pressors as tolerated to maintain MAP greater than 65 3. Agree with empiric antibiotics pending culture data 4. Hold baseline antihypertensive and diuretics 5. Aggressive rate control. Hold anticoagulation 6. Wound care for pressure ulcer 7. Await family decision on goals of therapy 8. Consider amiodarone versus cardiology consultation if family remains aggressive IMPRESSIONS: 1. Acute combined respiratory failure secondary to influenza A with probable superinfection Patient appears to be improving from an FiO2 standpoint following intubation. This is likely secondary to recruitment. Mechanical ventilation will be continued for now, but this may be readdressed once family arrives. Continue to wean FiO2 as tolerated. Spontaneous breathing and awakening trials per protocol. Patient still with significant tachycardia, so no spontaneous breathing trial was attempted. Sputum is suggestive of a secondary bacterial infection. 2. Septic shock secondary to influenza A with possible superinfection Patient with significant infiltrates on CT scan, but also has an indwelling catheter. Some concern for influenza with a superinfection. This may be secondary to the indwelling catheter versus pneumonia with staff aureus. Patient is on broad-spectrum antibiotics. Patient is at risk for skin infection also given ulcerations. Continue pressors for now. Hold Lasix. Likely not necessary to obtain further lactate levels. 3. A. fib with RVR Rate appears to be poorly controlled at this time. Okay to continue with Plavix. Would not recommend systemic anticoagulation given instability. Could consider cardiology consultation if family elects to remain aggressive 4. Diabetes mellitus/CKD stage IIIa/stage II pressure ulcer/advanced age/obesity/chronic pain syndrome Complicates care, management, recovery and prognosis. Wound nurse to evaluate pressure wounds. We will need to watch blood sugars closely as patient could have issues with hypoglycemia from endogenous steroid response. Patient currently on a fentanyl drip this will be continued while intubated. TIME: 35 minutes critical care time spent addressing patient's respiratory failure, septic shock, diabetes, clarifying goals of therapy, review of all data and collaboration with care team Subjective Subjective Patient did well overnight. Patient does remain on Levophed and has had marginal urine output. Patient also remains in A. fib with RVR, also did not h ave a spontaneous breathing trial this morning. Family is reported to be arranging this morning. Daughter from [place] reportedly is due this morning. No decision on change of goals of therapy at this time per nursing. Objective Data Objective Data Sputum culture showing 4+ white blood cells and 2+ gram-positive cocci Vital Signs: Vital Signs Temp Pulse Resp BP Pulse Ox O2 Del Method O2 Flow Rate 36.3 C L 120 H 20 H 110/71 96 Mechanical Ventilator 100 07/13/22 04:00 07/13/22 07:00 07/13/22 07:00 07/13/22 07:00 07/13/22 07:00 07/13/22 07:45 07/12/22 04:00 FiO2 35 07/13/22 07:45 Oxygen Flow Rate (L/min) 100 Oxygen Delivery Method Mechanical Ventilator Weight: 101.8 kg Body Mass Index (BMI) 31.3 Intake & Output: Intake and Output for Last 24 Hours 07/11/22 07/12/22 07/13/22 23:59 23:59 23:59 Intake Total 5031.27 / 5157.27 1151.83 / 1151.83 Output Total 660 / 785 570 / 570 Balance 4371.27 / 4372.27 581.83 / 581.83 Lab / Micro Data Attestation: I reviewed the patient's lab results. Result Diagrams: 07/13/22 04:00 07/13/22 04:00 Labs: Laboratory Results - last 24 hr 07/12/22 08:01: POC Glucose 191 H 07/12/22 08:20: Lactic Acid 2.2 H* 07/12/22 12:41: POC Glucose 146 H 07/12/22 16:14: POC Glucose 157 H 07/13/22 00:30: POC Glucose 169 H 07/13/22 04:00: WBC 8.0, RBC 3.95 L, Hgb 11.2 L, Hct 36.3 L, MCV 91.9, MCH 28.4, MCHC 30.9 L, RDW Std Deviation 56.1 H, RDW Coeff of Suraj 16.6 H, Plt Count 227, MPV 9.3, Immature Gran % (Auto) 3.000 H, Neut % (Auto) 81.6 H, Lymph % (Auto) 9.5 L, [place] % (Auto) 5.2, Eos % (Auto) 0.2, Baso % (Auto) 0.5, Absolute Neuts (auto) 6.5, Absolute Lymphs (auto) 0.76 L, Nucleated RBC % 0.2, Differential Comment SCANNED 07/13/22 04:00: Sodium 143, Potassium 3.2 L, Chloride 110 H, Carbon Dioxide 24.0, Anion Gap 9, BUN 37 H, Creatinine 1.54 H, Estim Creat Clear Calc 37.53, Est GFR (MDRD) Af Amer 56 L, Est GFR (MDRD) Non-Af 46 L, BUN/Creatinine Ratio 24.0 H, Glucose 214 H, Calcium 8.4 L, Magnesium 2.4 07/13/22 04:00: Phosphorus 2.6 07/13/22 05:42: POC Glucose 196 H Micro: Microbiology 07/12/22 04:38 Sputum, Induced/Lukens Gram Stain - Final 07/12/22 10:10 Urine Catheter - Fierro Legionella Antigen - Final 07/12/22 10:10 Urine Catheter - Fierro Streptococcus pneumoniae Antigen (M - Final 07/12/22 02:12 Nasal Secretion SARS-CoV-2 & FLU Antigen (Rapid) - Final Influenzae A Rhythm Strip Rhythm Strip: A-fib Rate: 128 Ectopy: PVC(s) Physical Exam Const Constitutional Narrative: Intubated and sedated. Appears stated age. Good vent synchrony. Obese. General Appearance: patient mechanically ventilated HEENT normocephalic and head/scalp atraumatic Mouth: endotracheal tube in place and OG tube in place Eyes PERRL, conjunctivae normal and no scleral icterus Neck no JVD General: trachea midline and CVC in place Resp Auscultation: rhonchi lower bilaterally (Slightly improved compared to yesterday); Negative for rales or wheezes Cardio S1 normal heart sound, S2 normal heart sound, no murmurs, no rub and no gallops Rate: tachycardic GI normal to inspection, nondistended, normoactive bowel sounds Extremity no clubbing, cyanosis or edema Neuro Sensorium / Orientation: sedated on vent Psych Mood & Affect: flat affect Charges/Coding Procedures Hospitalists Procedures: [id number] Critial Care 1st Hr
[2022-07-13] MEDS: Empagliflozin 10 MG Tablet GT (08:42)
[2022-07-13] MEDS: Clopidogrel Bisulfate 75 MG Tablet GT (08:42)
[2022-07-13] MEDS: OSELTAMIVIR PHOSPHATE 6 MG/ML BOTTLE 30 MG GT (08:43)
[2022-07-13] MEDS: Potassium Chloride Oral Soln 20 MEQ/15 ML UDC 40 MEQ GT (08:43)
[2022-07-13] MEDS: Enoxaparin 40 MG/0.4 ML Syringe SC (08:43)
[2022-07-13] MEDS: Propofol 10MG/Ml 1,000 MG/100 ML Bottle 9.1 MG CONT INF ×2 (08:50)
--- NOTE | 2022-07-13 08:52 | PCM.PN.HOSP ---
Subjective Subjective Intubated and sedated, it appears that we are waiting for a daughter from [place] prior to making a decision of transitioning to hospice Objective Data Objective Data Vital Signs: Vital Signs Temp Pulse Resp BP Pulse Ox O2 Del Method O2 Flow Rate 97.6 F L 118 H 19 H 116/59 L 94 Mechanical Ventilator 100 07/13/22 08:00 07/13/22 08:00 07/13/22 08:00 07/13/22 08:45 07/13/22 08:00 07/13/22 08:00 07/12/22 04:00 FiO2 35 07/13/22 08:00 Oxygen Flow Rate (L/min) 100 Oxygen Delivery Method Mechanical Ventilator Weight: 224 lb 6.889 oz Body Mass Index (BMI) 31.3 Intake & Output: Intake and Output for Last 24 Hours 07/12/22 07/13/22 07/14/22 03:59 03:59 03:59 Intake Total 1000 / 1000 4535.27 / 5021.27 687.99 / 687.99 Output Total 815 / 855 415 / 415 Balance 1000 / 1000 3720.27 / 4166.27 272.99 / 272.99 Lab / Micro Data Result Diagrams: 07/13/22 04:00 07/13/22 04:00 Labs: Laboratory Results - last 24 hr 07/12/22 08:20: Lactic Acid 2.2 H* 07/12/22 12:41: POC Glucose 146 H 07/12/22 16:14: POC Glucose 157 H 07/13/22 00:30: POC Glucose 169 H 07/13/22 04:00: WBC 8.0, RBC 3.95 L, Hgb 11.2 L, Hct 36.3 L, MCV 91.9, MCH 28.4, MCHC 30.9 L, RDW Std Deviation 56.1 H, RDW Coeff of Suraj 16.6 H, Plt Count 227, MPV 9.3, Immature Gran % (Auto) 3.000 H, Neut % (Auto) 81.6 H, Lymph % (Auto) 9.5 L, [place] % (Auto) 5.2, Eos % (Auto) 0.2, Baso % (Auto) 0.5, Absolute Neuts (auto) 6.5, Absolute Lymphs (auto) 0.76 L, Nucleated RBC % 0.2, Differential Comment SCANNED 07/13/22 04:00: Sodium 143, Potassium 3.2 L, Chloride 110 H, Carbon Dioxide 24.0, Anion Gap 9, BUN 37 H, Creatinine 1.54 H, Estim Creat Clear Calc 37.53, Est GFR (MDRD) Af Amer 56 L, Est GFR (MDRD) Non-Af 46 L, BUN/Creatinine Ratio 24.0 H, Glucose 214 H, Calcium 8.4 L, Magnesium 2.4 07/13/22 04:00: Phosphorus 2.6 07/13/22 05:42: POC Glucose 196 H Micro: Microbiology 07/12/22 04:38 Sputum, Induced/[place] Gram Stain - Final 07/12/22 04:38 Sputum, Induced/[place] Respiratory Culture - Preliminary Staphylococcus aureus 07/12/22 10:10 Urine Catheter - [place] Legionella Antigen - Final 07/12/22 10:10 Urine Catheter - [place] Streptococcus pneumoniae Antigen (M - Final 07/12/22 02:12 Nasal Secretion SARS-CoV-2 & FLU Antigen (Rapid) - Final Influenzae A Rhythm Strip Rhythm Strip: A-fib Rate: 128 Ectopy: PVC(s) Physical Exam Const General Appearance: intubated and patient mechanically ventilated HEENT normocephalic Eyes PERRL and conjunctivae normal Neck supple and no JVD Resp normal respiratory effort, no retractions and no use of accessory muscles Auscultation: rhonchi; Negative for crackles, rales or wheezes Cardio S1 normal heart sound, S2 normal heart sound and no murmurs Rate: tachycardic Rhythm: abnormal rhythm GI soft to palpation and non-distended; Negative for hepatosplenomegaly Extremity no clubbing, cyanosis or edema Skin no rashes or lesions noted Neuro Sensorium / Orientation: sedated on vent Psych Appearance: intubated Assessment & Plan Assessment/Plan (1) Acute respiratory failure with hypoxia and hypercapnia: (2) Influenza and pneumonia: (3) Septic shock: (4) Acute kidney injury: (5) Atrial fibrillation: PLAN: Plan 1. Septic shock and acute combined respiratory failure secondary to influenza with probable superinfection/A. fib with RVR/[place] on CKD 3a/HTN/HLD/chronic diastolic CHF ? Currently intubated, continue with empiric antibiotics as well as Tamiflu ? Per family the plan was to enroll in hospice on the day of admission ?We are awaiting a daughter coming from [place] and then will have further discussions on goals of care and possible transition to comfort care ? Continue with pressor support will hold anticoagulation for his A. fib, and will hold any medications given the need for pressor support ? Continue to monitor renal function and make adjustments as necessary 2. DM2 ? We will place him on sliding scale insulin ? Hold his oral medications ? We will make adjustments as necessary 3. Stage II pressure ulcer ?Calmoseptine cream and Allevyn adhesive ordered. DVT: Lovenox Charges/Coding Visit Charges Inpatient E&M: 25737 Subs Hosp L2
[2022-07-13] MEDS: Chlorhexidine 15 ML PO (10:26)
[2022-07-13] MEDS: Menthol/Lanolin/Calamine/Znox 113 GM Tube 1 APPLIC TOPICAL (10:26)
[2022-07-13 12:15] LABS: Bedside Glucose 207 mg/dL (74-106)
--- NOTE | 2022-07-13 15:04 | CASEMGMT ---
Social Work SW spoke w/family today, offered support. They plan to extubate the pt this afternoon. SW remains available for support to family. Sana GOMEZ
[2022-07-13] MEDS: Morphine 4 MG/ML Syringe IV (15:12)
[2022-07-13] MEDS: LORazepam 2 MG/ML Syringe 1 MG IV (15:12)
[2022-07-13] MEDS: 0.9% Saline Lock 10 ML Syringe IV (15:13)
--- NOTE | 2022-07-13 15:28 | NURSING ---
Extubated at 1516 per family's wishes. Family at bedside. Emotional support given.
--- NOTE | 2022-07-13 16:01 | NURSING ---
at 1559 w/ family at bedside. Confirmed w/ A.Efren RN
--- NOTE | 2022-07-13 16:15 | PCM.DEATH ---
Preliminary Cause of Preliminary Cause of Preliminary Cause of : Septic shock due to influenza with probable superinfection Date of Admission: 07/12/22 Date of : 07/13/22 Principle Diagnosis Problem List: Active and Suspected Problems (Updated 07/12/22 @ 06:[address] Bridger Bergman, DO) Acute respiratory failure with hypoxia and hypercapnia (Acute) Influenza and pneumonia (Acute) Septic shock (Acute) Atrial fibrillation (Acute) Acute kidney injury (Acute) Hospital Course Mr. Patel was an 82-year-old gentleman who presented to the hospital with shortness of breath. He was intubated in the ER because of this and information was a chest x-ray at the senior living demonstrated pneumonia and was sent in because he was getting increasingly worse. According to family the day that he was admitted they were planning on transitioning him to hospice care. Work-up in the ER returned positive test for influenza A and a negative COVID test. He was started on Tamiflu as well as broad-spectrum antibiotics given how ill he was and the possibility of a superinfection. He was admitted to the ICU and was started on IV pressors for his septic shock. The circulation sales representative had discussed the situation with the family and they had felt that since they were already planning on pursuing hospice care that they would like to proceed with hospice care and terminal extubation however there is a family member coming from [place]. Once she arrived today Mr. Patel was extubated, he on 07/13/2022 at 1559. Visit Charges Inpatient E&M: 68264 Disch Hosp >30min
--- NOTE | 2022-07-15 09:21 | CASEMGMT ---
Social Work [facility] updated on of patient. DANYEL Lewis
[2022-07-15 11:05] LABS: Pathologist Review Reviewed
== END 2022-07-13 18:23 | DRG 871 ==
LOC: ED 03:05 → ICU 06:11
PROVIDERS: Admitting Provider Hospitalist; Emergency Provider Emergency Medicine; PCP Nurse Practitioner Primary Care; Visit Provider Family Medicine
DX: A41.9 Sepsis, unspecified organism (principal); J96.01 Acute respiratory failure with hypoxia; R65.21 Severe sepsis with septic shock; G93.41 Metabolic encephalopathy; J96.02 Acute respiratory failure with hypercapnia; J10.01 Influenza due to other identified influenza virus with the same other identified influenza virus pneumonia; I13.0 Hypertensive heart and chronic kidney disease with heart failure and stage 1 through stage 4 chronic kidney disease, or unspecified chronic kidney disease; I50.32 Chronic diastolic (congestive) heart failure; J10.81 Influenza due to other identified influenza virus with encephalopathy; E11.22 Type 2 diabetes mellitus with diabetic chronic kidney disease; L89.152 Pressure ulcer of sacral region, stage 2; E11.40 Type 2 diabetes mellitus with diabetic neuropathy, unspecified; I48.0 Paroxysmal atrial fibrillation; N18.31 Chronic kidney disease, stage 3a; E11.65 Type 2 diabetes mellitus with hyperglycemia; Z79.4 Long term (current) use of insulin; I25.10 Atherosclerotic heart disease of native coronary artery without angina pectoris; E78.5 Hyperlipidemia, unspecified; Z20.822 Contact with and (suspected) exposure to COVID-19; Z87.891 Personal history of nicotine dependence; G89.4 Chronic pain syndrome; Z79.02 Long term (current) use of antithrombotics/antiplatelets; E66.9 Obesity, unspecified; Z79.899 Other long term (current) drug therapy; Z68.31 Body mass index [BMI] 31.0-31.9, adult
CPT/HCPCS: 31500; 31720; 36556; 36600; 51702; 71045; 80048; 82550; 82803; 82962; 83605; 83735; 83880; 84100; 84478; 85025; 85610; 85730; 87040; 87070; 87077; 87086; 87186; 87205; 87428; 87449; 93005; 94002; 94003; 94762; 97802; 99252; 99285; J7030; J7040; J7050; A4216; C1751; G0463; J3010